=== PATIENT | female | born 1935 | race Caucasian/White ===

== ENCOUNTER 2020-12-04 08:16 | Outpatient (CLI) | payer MEDICARE, SELFPAY ==
[2020-12-04 08:48] LABS: Basophils Absolute Auto 0.1 K/mm3 (0.0-0.1); Basophils Percent Auto 0.1 % (0.2-1.2); Eosinophils Absolute Auto 0.2 K/mm3 (0-0.3); Eosinophils Percent Auto 0.3 % (0-4.4); Hematocrit 40.5 % (37.0-47.0); Hemoglobin 12.6 g/dL (12.0-15.0); Immature Granulocyte Absolute 0.13 K/mm3 (0.00-0.031); Immature Granulocyte Percent A 0.2 % (0-0.5); Lymphocytes Absolute Auto 54.84 K/mm3 (0.9-3.2); Mean Corpuscular HGB Conc 31.1 g/dl (32-36); Mean Corpuscular Hemoglobin 28.5 pg (26-34); Mean Corpuscular Volume 91.6 fl (80-100); Mean Platelet Volume 8.9 fl (7.4-10.4); Monocytes Absolute Auto 1.3 K/mm3 (0.1-0.6); Monocytes Percent Auto 2.1 % (2.6-8.5); Neutrophils Absolute Auto 7.3 K/mm3 (1.3-6.7); Neutrophils Percent Auto 11.3 % (45.5-73.1); Platelet Count Result 232 k/mm3 (150-375); Red Blood Count 4.42 M/mm3 (4.2-5.4); Red Cell Distribution Width 14.8 % (11.5-14.5)
[2020-12-04 09:46] LABS: White Blood Count 63.8 K/mm3 (4.5-10.0)
[2020-12-04 09:51] LABS: Atypical Lymphocytes Present; Platelet Estimate Adequate (Adequate)
[2020-12-04 11:10] LABS: Alanine Aminotransferase 12 U/L (4-35); Albumin Level 4.3 g/dL (3.5-5.1); Alkaline Phosphatase 63 U/L (38-126); Anion Gap 10 mmol/L (8-16); Aspartate Amino Transferase 30 U/L (14-36); Bilirubin,Total 1.2 mg/dL (0.2-1.3); Blood Urea Nitrogen 13 mg/dL (7-17); Calcium 9.8 mg/dL (8.4-10.2); Carbon Dioxide 25 mmol/L (22-30); Chloride 106 mmol/L (98-107); Estimated Glomerular Filt Rate 53; Glucose 122 mg/dL (65-105); Lactate Dehydrogenase 476 U/L (313-618); Potassium 4.5 mmol/L (3.4-5.0); Sodium 141 mmol/L (137-145)
== END 2020-12-04 08:17 | disposition home or self-care (01) ==
PROVIDERS: Visit Provider Internal Medicine Hematology & Oncology
DX: C91.10 Chronic lymphocytic leukemia of B-cell type not having achieved remission (principal)
CPT/HCPCS: 36415; 80053; 83615; 85025

== ENCOUNTER 2021-09-09 09:04 | Outpatient (CLI) | payer MEDICARE, SELFPAY ==
[2021-09-09 09:19] LABS: Basophils Absolute Auto 0.1 K/mm3 (0.0-0.1); Basophils Percent Auto 0.1 % (0.2-1.2); Eosinophils Absolute Auto 0.1 K/mm3 (0-0.3); Eosinophils Percent Auto 0.1 % (0-4.4); Hematocrit 42.5 % (37.0-47.0); Hemoglobin 12.6 g/dL (12.0-15.0); Immature Granulocyte Absolute 0.22 K/mm3 (0.00-0.031); Immature Granulocyte Percent A 0.2 % (0-0.5); Lymphocytes Absolute Auto 86.02 K/mm3 (0.9-3.2); Lymphocytes Percent Auto 91.2 % (18.3-44.2); Mean Corpuscular HGB Conc 29.6 g/dl (32-36); Mean Corpuscular Hemoglobin 29.5 pg (26-34); Mean Corpuscular Volume 99.5 fl (80-100); Monocytes Percent Auto 2.2 % (2.6-8.5); Neutrophils Absolute Auto 5.9 K/mm3 (1.3-6.7); Neutrophils Percent Auto 6.2 % (45.5-73.1); Platelet Count Result 235 k/mm3 (150-375); Red Blood Count 4.27 M/mm3 (4.2-5.4); Red Cell Distribution Width 14.4 % (11.5-14.5)
[2021-09-09 09:22] LABS: White Blood Count 94.3 K/mm3 (4.5-10.0)
[2021-09-09 09:23] LABS: Blood Urea Nitrogen 17 mg/dL (8-26); Carbon Dioxide 26 mmol/L (22-30); Chloride 104 mmol/L (98-109); Estimated Glomerular Filt Rate 53; Glucose 121 mg/dL (70-105); Potassium 4.2 mmol/L (3.5-4.9); Sodium 141 mmol/L (138-146)
[2021-09-09 09:25] LABS: Atypical Lymphocytes Present; Platelet Estimate Adequate (Adequate)
[2021-09-09 10:02] LABS: Alanine Aminotransferase 13 U/L (4-35); Albumin Level 4.6 g/dL (3.5-5.1); Alkaline Phosphatase 69 U/L (38-126); Anion Gap 10 mmol/L (8-16); Aspartate Amino Transferase 29 U/L (14-36); Bilirubin,Total 1.2 mg/dL (0.2-1.3); Blood Urea Nitrogen 16 mg/dL (7-17); Calcium 9.4 mg/dL (8.4-10.2); Carbon Dioxide 25 mmol/L (22-30); Chloride 105 mmol/L (98-107); Estimated Glomerular Filt Rate 47; Glucose 123 mg/dL (65-110); Lactate Dehydrogenase 455 U/L (313-618); Potassium 4.3 mmol/L (3.4-5.0); Sodium 140 mmol/L (137-145)
== END 2021-09-09 09:05 | disposition home or self-care (01) ==
PROVIDERS: Visit Provider Internal Medicine Hematology & Oncology
DX: C91.10 Chronic lymphocytic leukemia of B-cell type not having achieved remission (principal)
CPT/HCPCS: 36415; 80053; 83615; 85025

== ENCOUNTER 2022-03-11 11:15 | Outpatient (CLI) | payer MEDICARE, SELFPAY ==
[2022-03-11 11:36] LABS: Hematocrit 38.4 % (37.0-47.0); Hemoglobin 12.1 g/dL (12.0-15.0); Mean Corpuscular HGB Conc 31.5 g/dl (32-36); Mean Corpuscular Hemoglobin 29.9 pg (26-34); Mean Corpuscular Volume 94.8 fl (80-100); Mean Platelet Volume 8.8 fl (7.4-10.4); Platelet Count Result 227 k/mm3 (150-375); Red Blood Count 4.05 M/mm3 (4.2-5.4); Red Cell Distribution Width 14.1 % (11.5-14.5)
[2022-03-11 11:39] LABS: Blood Urea Nitrogen 17 mg/dL (8-26); Carbon Dioxide 22 mmol/L (22-30); Chloride 104 mmol/L (98-109); Estimated Glomerular Filt Rate 47; Glucose 121 mg/dL (70-105); Ionized Calcium (POC) 1.18 mmol/L (1.11-1.31); Potassium 4.3 mmol/L (3.5-4.9); Sodium 137 mmol/L (138-146)
[2022-03-11 11:41] LABS: White Blood Count 74.4 K/mm3 (4.5-10.0)
[2022-03-11 11:43] LABS: Atypical Lymphocytes Present; Lymphocytes Absolute Manual 70.68 K/mm3 (1.1-4.5); Monocytes Absolute Manual 0.74 K/mm3 (0.1-0.90); Monocytes Percent Manual 1 % (3-9); Neutrophils Percent Manual 4 % (46-73); Platelet Estimate Adequate (Adequate); Smudge Cells FEW; Total Cells Counted 100
[2022-03-11 13:35] LABS: Alanine Aminotransferase 13 U/L (6-35); Albumin Level 4.3 g/dL (3.5-5.1); Alkaline Phosphatase 61 U/L (38-126); Anion Gap 13 mmol/L (8-16); Aspartate Amino Transferase 22 U/L (14-36); Bilirubin,Total 1.3 mg/dL (0.2-1.3); Blood Urea Nitrogen 19 mg/dL (7-17); Calcium 9.3 mg/dL (8.4-10.2); Carbon Dioxide 21 mmol/L (22-30); Chloride 102 mmol/L (98-107); Estimated Glomerular Filt Rate 53; Glucose 123 mg/dL (65-110); Lactate Dehydrogenase 175 U/L (120-246); Potassium 4.3 mmol/L (3.4-5.0); Sodium 136 mmol/L (137-145)
== END 2022-03-11 11:16 | disposition home or self-care (01) ==
LOC: ANHLAB 11:16
PROVIDERS: Visit Provider Internal Medicine Hematology & Oncology
DX: C91.10 Chronic lymphocytic leukemia of B-cell type not having achieved remission (principal)
CPT/HCPCS: 36415; 80047; 80053; 83615; 85025

== ENCOUNTER 2022-06-10 06:28 | Inpatient (IN) | payer MEDICARE, SELFPAY ==
--- NOTE | ~2022-06-10 | CT_ITS ---
EXAMINATION: CT guide absc cath placement DATE: 06/10/2022 14:55 INDICATION: Perisigmoid abscess. TECHNIQUE: The procedure including the risks, benefits, and alternatives was discussed with the patie nt. Risks discussed included bleeding and infection. The patient understood the risks and benefits an d agreed to proceed. The patient was confirmed to be receiving appropriate antibiotic coverage. The skin overlying the abdomen was prepped and draped in usual sterile fashion. Anesthetic was administe red with 1% lidocaine subcutaneously. An 18 gauge trochar needle was inserted into the perisigmoid ab scess with CT guidance. The needle was exchanged over a wire for 5 Maldivian, 7 Maldivian, and 10 Maldivian di lators and then for a 10.2 Maldivian pigtail catheter. The catheter was stitched to the skin, and a ster ile dressing was applied. The mA was adjusted according to patient size. Iterative reconstruction edgar hnique was employed. The dose-length product was 256.92 mGy-cm. There were no immediate complications . FINDINGS: CT images demonstrate the catheter within the perisigmoid abscess. 2 mL fluid was aspirated for testing. IMPRESSION: 1. Successful CT-guided perisigmoid abscess drainage. 2. 2 mL opaque, riojas fluid was sent for aerobic and anaerobic cultures. Reviewed, dictated and finalized at location A. SAMPLER
--- NOTE | ~2022-06-10 | CT_ITS ---
EXAMINATION: CT abdomen pelvis wo con DATE: 06/15/2022 08:37 INDICATION: Diverticular abscess TECHNIQUE: Computed tomography (CT) of the abdomen and pelvis was performed without intravenous contr ast. Automated exposure control and iterative reconstruction technique were employed. The dose-length product was 353.33 mGy-cm. COMPARISON: CT abdomen and pelvis 06/10/2022 FINDINGS: The visualized portions of the lung bases demonstrate chronic peripheral septal thickening. There are small pleural effusions. The heart size is normal. There are coronary artery calcification s. No pericardial effusion. The liver is normal. There are changes of cholecystectomy. The spleen, pa ncreas, adrenal glands, and kidneys are normal. There is no urolithiasis. There are scattered diverti cula in the colon. There is wall thickening of the sigmoid colon with surrounding fat stranding. The appendix is normal. There are no dilated loops of bowel. There is an abscess that abuts the sigmoid c olon and bladder with percutaneous drain in expected position. Fluid encircled by the pigtail loop of the drain measures 1.3 x 1.3 x 0.9 cm. There is trace ascites. There are no pathologically enlarged lymph nodes. There is thoracolumbar levoscoliosis and lumbar dextroscoliosis. There is severe lumbar spondylosis. IMPRESSION: 1. Sigmoid diverticulitis with abscess abutting the sigmoid colon and bladder with trace fluid and pi gtail drain in expected position. 2. Small pleural effusions, worsened from 06/10/2022. Reviewed, dictated and finalized at location A. ISH LECTURER IMPRESSION: 1. Sigmoid diverticulitis with abscess abutting the sigmoid colon and bladder w ith trace fluid and pigtail drain in expected position. 2. Small pleural effusions, worsened from 06/10/2022.
--- NOTE | ~2022-06-10 | CT_ITS ---
CT Abdomen and Pelvis with contrast. History: Left lower quadrant pain. Spiral CT of the abdomen and pelvis was performed after the administration of oral and intravenous co ntrast. 100 cc of Omnipaque 350 was administered intravenously without complication. Dose reduction t echnique was used on this scan by utilizing automated exposure control and iterative reconstruction t echnique. The dose-length product (DLP) was 328.74 mGy-cm. COMPARISON: 12/11/2010 Findings: Scans through the lung bases demonstrate mild atelectatic change. The liver, spleen, pancreas, adrenals and kidneys are within normal limits. Cholecystectomy clips pre sent. No evidence of aortic aneurysm. No lymphadenopathy is seen. There is extensive wall thickening of the sigmoid colon at its mid and distal portions with adjacent pericolonic inflammatory changes. There is an abscess or contained perforation extending inferiorly f rom the sigmoid colon measuring 6.1 x 4.9 x 3.6 and her using; the large air-filled cavity/collection (axial image 147 for example). This abscess/collection extensively abuts the superior margin of the urinary bladder with associated mild wall thickening. No air in the urinary bladder. The collection a lso extensively abuts the vaginal cuff, and fistulization to the vaginal cuff cannot be excluded, wit h small amount of air in the vagina. Patient appears to status post prior hysterectomy. No ascites evident otherwise. Impression: Extensive wall thickening and pericolonic inflammatory change involving the sigmoid colon, compatible diverticulitis. Associated 6.1 x 4.9 x 3.6 cm extraluminal, predominantly gas collection, compatible with abscess and /or contained perforation. This collection extensively abuts the urinary bladder and vaginal cuff, an d fistulization to the vaginal cuff is suspected, with air in the vagina. No evidence for fistulizati on to the urinary bladder. Findings discussed with Dr. Main in the emergency room at 9:10 AM on 06/10/2022. Reviewed, dictated and finalized at location [] IMEDIA TECHNICIAN Impression: Extensive wall thickening and pericolonic inflammatory change involving the sig moid colon, compatible diverticulitis. Associated 6.1 x 4.9 x 3.6 cm extraluminal, predominantly gas collection, saniya tible with abscess and/or contained perforation. This collection extensively ab uts the urinary bladder and vaginal cuff, and fistulization to the vaginal cuff is suspected, with air in the vagina. No evidence for fistulization to the uri nary bladder. Findings discussed with Dr. Main in the emergency room at 9:10 AM on 2021.
--- NOTE | ~2022-06-10 | US_ITS ---
EXAMINATION: US soft tissue head and neck DATE: 06/15/2022 09:04 INDICATION: Right lateral face injury. TECHNIQUE: Multiple grayscale and Doppler ultrasound images of the face were obtained. COMPARISON: None FINDINGS: There is no abnormal mass or well-defined hematoma in the patient's area of concern. IMPRESSION: 1. No abnormal mass or well-defined hematoma in the patient's area of concern. Reviewed, dictated and finalized at location A. TRUCTION IRONWORKER HELPER
[2022-06-10 06:31] VITALS: BP 133/67; PULSE 47; RESP 16; TEMP 36.7; O2SAT 99
--- NOTE | 2022-06-10 07:07 | ECG_ITS ---
Measurements Intervals Todd Rate: 72 P: MN: 0 QRS: 65 QRSD: 86 T: 46 QT: 376 QTc: 413 Interpretive Statements SINUS RHYTHM WITH PREMATURE ATRIAL COMPLEX LOW QRS VOLTAGE IN PRECORDIAL LEADS [QRS DEFLECTION < 1.0 mV IN CHEST LEADS] ABNORMAL RHYTHM ECG NO PREVIOUS ECG AVAILABLE FOR COMPARISON Electronically Signed On 06-10-2022 13:20:40 RECORDING STUDIO SETUP WORKER by Gordon Rivas M.D.
--- NOTE | 2022-06-10 07:24 | ED.GENADULT ---
HPI - General Adult General Chief complaint: Abdominal Pain Stated complaint: diverticulitis Time Seen by Provider: 06/10/22 07:01 History of Present Illness HPI narrative: 86-year-old female presenting to the emergency department for evaluation of left lower quadrant pain that has been ongoing for approximate 24 hours. Patient does report decreased p.o. intake and associated diarrhea. Patient does have a prior history of leukemia and does follow-up with Dr Gibson. Related Data Allergies Allergy/AdvReac Type Severity Reaction Status Date / Time tetracycline Allergy Unknown Verified 04/08/12 13:56 NKFA Allergy Unknown UNKNOWN Uncoded 12/30/18 09:54 Review of Systems Review of Systems: CONSTITUTIONAL: Denies fever, chills, or sweats. EYES: Denies visual changes, redness, or discharge. ENT: Denies rhinorrhea, congestion, sore throat, or otalgia. CARDIOVASCULAR: Denies chest pain, palpitations, or edema. RESPIRATORY: Denies cough or dyspnea. GASTROINTESTINAL: See HPI GENITOURINARY: Denies dysuria or hematuria. SKIN: Denies rash or itching. MUSCULOSKELETAL: Denies back pain, joint pain, or myalgia. NEUROLOGIC: Denies headache, numbness, or weakness. FORMERLY [facility], [facility] Past Medical History Medical History Chronic lymphocytic leukemia History of UTI Surgical History Surgical History H/O cataract extraction History of colonoscopy with polypectomy History of laparoscopic cholecystectomy History of total abdominal hysterectomy Family History Family History Father Family history of lung cancer Patient's father is Mother Patient's mother is Social History Social History (Updated 06/10/22 @ 15:14 by Coty Rajan NP) Social History: She is and lives home alone. She has 3 children. Her son and daughter that live nearby [facility] that [facility] power assistant attorney general for healthcare. She has never smoked. She worked for [employer]. No alcohol marijuana or illicit drugs. Code status full code Smoking status: Never smoker Alcohol intake: never Substance use: never Lack of Transportation: No Lack of Food: Never True Current Housing: I Have Housing Concerned About Future Housing: No Difficulty Paying Gas/Electric Bills: No Difficulty Paying for Meds: No Currently Unemployed: No Education: High School Diploma/GED Difficulty w/ Childcare or Family Care: No Spiritual care concerns: No Exam Narrative: APPEARANCE: Ill-appearing HEAD: normocephalic, atraumatic. EYES: PERRLA/EOMI, conjunctivae clear. NOSE: Normal no drainage EARS:TMS clear with good light reflex. THROAT: Pharynx clear, no exudate. NECK: Supple. No adenopathy, no masses. RESPIRATORY: Airway patent, respirations nonlabored. Clear to auscultation bilaterally, no rales, rhonchi, wheezing. CARDIOVASCULAR: Regular rate and rhythm without murmurs rubs or gallops. ABDOMINAL: Left lower quadrant tenderness to palpation. Normal bowel sounds. MUSCULOSKELETAL: Moves all extremities. Strength/ROM intact, No edema, No calf tenderness. NEURO: Alert. Cranial nerves II through XII intact. Grossly intact SKIN: Warm, dry. Normal Color Course Course Emergency Course: Patient was found to have a diverticulitis with perforation and abscess. Patient has an elevated leukocytosis of 91.5 which is most likely secondary to her leukemia. Patient was started on Zosyn and blood cultures are pending. Patient also shows evidence of a urinary tract infection. Patient was negative for influenza RSV and COVID. Case was discussed with Dr. Bai for surgery and patient was admitted to the hospitalist. Patient and family were updated on the results of the diagnosis. All questions and concerns were addressed. Vital Signs Vital signs: Vital Signs
[2022-06-10] MEDS: ONDANSETRON INJ 4 MG/2 ML VIAL IV PUSH (07:35)
[2022-06-10] MEDS: fentaNYL CITRATE INJ (*CRX) 100 MCG/2 ML VIAL 50 MCG IV PUSH (07:35)
[2022-06-10 08:22] LABS: Appearance Urine Clear (Clear); Bilirubin Urine 2+ (Negative); Blood Urine 3+ (Negative); Glucose Urine UA Negative (Negative); Ketones Urine 3+ mg/dL (Negative); Leukocyte Esterase Ur 2+ LEU/UL (Negative); Nitrate Urine Negative (Negative); Protein Urine 2+ mg/dL (Negative); Specific Grav Ur 1.025 (1.001-1.035)
[2022-06-10 08:28] LABS: Bacteria Urine 3+ /hpf; Mucus Urine Heavy /lpf; RBC Urine 51-75 /hpf (0-2); Squamous Epithelial Cell Urine Occasional /hpf (Few); WBC Clumps Urine Present /HPF; WBC Urine >75 /hpf
[2022-06-10 08:34] LABS: INR 1.4
[2022-06-10 08:35] LABS: Alanine Aminotransferase 19 U/L (6-35); Alkaline Phosphatase 66 U/L (38-126); Anion Gap 11 mmol/L (8-16); Aspartate Amino Transferase 31 U/L (14-36); Bilirubin,Total 1.5 mg/dL (0.2-1.3); Blood Urea Nitrogen 13 mg/dL (7-17); Calcium 8.9 mg/dL (8.4-10.2); Carbon Dioxide 21 mmol/L (22-30); Chloride 103 mmol/L (98-107); Estimated Glomerular Filt Rate > 60; Glucose 144 mg/dL (65-110); Magnesium 2.1 mg/dL (1.6-2.3); Partial Thromboplastin Time 29.9 SECONDS (22.3-36.8); Potassium 3.3 mmol/L (3.4-5.0); Sodium 135 mmol/L (137-145)
[2022-06-10 08:41] LABS: Add Urine Microscopic? YES; Color Urine Dark Orange (Yellow)
[2022-06-10 08:46] LABS: Hematocrit 34.3 % (37.0-47.0); Hemoglobin 10.8 g/dL (12.0-15.0); Mean Corpuscular HGB Conc 31.5 g/dl (32-36); Mean Corpuscular Hemoglobin 29.8 pg (26-34); Mean Corpuscular Volume 94.5 fl (80-100); Mean Platelet Volume 9.6 fl (7.4-10.4); Platelet Count Result 295 k/mm3 (150-375); Red Blood Count 3.63 M/mm3 (4.2-5.4); Red Cell Distribution Width 14.1 % (11.5-14.5)
[2022-06-10 08:51] LABS: White Blood Count 91.5 K/mm3 (4.5-10.0)
[2022-06-10 09:15] LABS: Band Neutrophils Percent 8 % (0-6); Lymphocytes Absolute Manual 68.62 K/mm3 (1.1-4.5); Monocytes Absolute Manual 3.66 K/mm3 (0.1-0.90); Monocytes Percent Manual 4 % (3-9); Neutrophils Absolute Manual 19.21 K/mm3 (1.7-7.2); Neutrophils Percent Manual 13 % (46-73); Platelet Estimate Adequate (Adequate); Smudge Cells MANY; Total Cells Counted 100
[2022-06-10 09:23] LABS: Schistocytes None Seen (NORMAL)
[2022-06-10 10:17] LABS: Influenza A QL RT-PCR Negative (Negative); Influenza B QL RT-PCR Negative (Negative); RSV RNA, RT-PCR Negative (Negative); SARS-CoV-2 RNA PCR Negative
[2022-06-10 10:19] VITALS: BP 130/88; PULSE 56; RESP 14; O2SAT 98
--- NOTE | 2022-06-10 10:38 | PM.CNGS ---
Assessment and Plan Assessment and plan (1) Diverticulitis of intestine with perforation: Code(s): K57.80 - Diverticulitis of intestine, part unspecified, with perforation and abscess without bleeding Status: Acute Assessment and Plan: This is her first episode of diverticulitis. CT reviewed and discussed with the patient in detail, which showed acute sigmoid diverticulitis with localized perforation and mostly gas-filled adjacent collection/abscess. There is also suggestion of possible fistulization to the vagina. No peritoneal signs on exam and her abdominal pain is controlled in the ER. We would recommend to initiate conservative treatment with broad-spectrum IV antibiotics, bowel rest, IV fluids, analgesics as needed. We have also ordered percutaneous drainage of the abscess in IR. (2) Chronic lymphocytic leukemia: Code(s): C91.10 - Chronic lymphocytic leukemia of B-cell type not having achieved remission Status: Acute Assessment and Plan: Diagnosed in [address] Gibson every 6 months. (3) Urinary tract infection: Code(s): N39.0 - Urinary tract infection, site not specified Status: Acute Assessment and Plan: Urinalysis suggests UTI. Patient is asymptomatic. Urine cx pending. Will be continued on IV Zosyn as mentioned above. Management per Hospitalist. (4) Leukocytosis: Code(s): D72.829 - Elevated white blood cell count, unspecified Status: Acute Assessment and Plan: Patient with CLL with leukocytosis. Last labs in Feb showed WBC 74k and up to 91k today. Likely diverticulitis in contributing to increase as mentioned above. Hemodynamically stable and no peritoneal signs on exam. Blood cultures drawn. Continue IV antibiotics and monitor labs. Plan I have discussed the patient's case and plan of care with Dr. Bai. History of Present Illness Consult details Consult date: 06/10/22 Reason for consult: other (Diverticulitis with perforation and abscess, possible vaginal fisutula) Requesting physician: Goran Main MD Narrative: This is an 86-year-old woman with a history of chronic lymphocytic leukemia that was diagnosed in 2002, who presented to the emergency department today with complaints of left lower quadrant abdominal pain. Her abdominal pain started 8 days ago. It was initially mild and intermittent. Her pain continued over the next few days and she developed a poor appetite. She has had low oral intake over the past week due to a poor appetite. Denies any nausea or vomiting. She also reports loose stools and new stool incontinence. Her stools are slightly mucousy, but no blood in the stool. Denies any fever or chills. She called her PCP due to the persistent symptoms and they recommended she go to the ER for further evaluation. CT scan of the abdomen and pelvis showed acute sigmoid diverticulitis with a peridiverticular abscess measuring 6.1 x 4.9 x 3.6 cm predominantly a gas collection, consistent with an abscess or contained perforation. This collection extensively abuts the urinary bladder and vaginal cuff with possible fistulization to the vaginal cuff due to air in the vagina, but no evidence of fistulization to the urinary bladder. In review of her labs, leukocytosis is noted with the most recent [place] [address]. Labs today showed a white blood cell count of 91,500. Labs also show a sodium of 135, potassium 3.3, glucose 144, hemoglobin 10.8, hematocrit 34.3. She also had an EKG in the ER this suggests rate controlled atrial fibrillation with a heart rate of 72. There is noted to be artifact on the EKG making it more difficult to interpret. The patient does report being told in the past that she has atrial fibrillation, but denies ever taking any medication or anticoagulants. The patient is being admitted in the setting of diverticulitis with perforation and abscess. Our service
--- NOTE | 2022-06-10 11:13 | PC.NURSE ---
Patient report received from JACK Harley. All questions answered and care of patient assumed. Patient resting comfortably in stretcher with family at bedside and call light in reach. NAD. VSS. Patient awaiting radiology availability for drain placement. Will continue to address needs as they arise.
[2022-06-10 11:51] VITALS: O2SAT 100
[2022-06-10 11:52] VITALS: BP 119/55; PULSE 71; RESP 14; O2SAT 99
[2022-06-10] MEDS: SODIUM CHLORIDE 0.9% IV 1,000 ML 75 ML IV CONT (12:51)
--- NOTE | 2022-06-10 12:54 | PM.IMHP ---
H&P: HPI History of Present Illness Date/Time: 06/10/22 12:54 Chief Complaint: Abdominal pain Narrative: This is an 86-year-old female patient who had sudden onset of left lower quadrant pain that has been ongoing for the last 24 hours. She has had decreased oral intake and diarrhea as well. Her last colonoscopy was many years ago. She has a history of CLL and her white counts 91.5 today. H&H is 10.8 and 34.3. Lymphocytes 75.0. It neutrophils 13. Absolute lymphs 68.62. Sodium 135 and potassium 3.3. She is also positive for UTI. Negative for influenza A/B RSV and COVID. Abdominal pelvis CT was read as the following Extensive wall thickening and pericolonic inflammatory change involving the sigmoid colon, compatible diverticulitis. Associated 6.1 x 4.9 x 3.6 cm extraluminal, predominantly gas collection, compatible with abscess and/or contained perforation. This collection extensively abuts the urinary bladder and vaginal cuff, and fistulization to the vaginal cuff is suspected, with air in the vagina. No evidence for fistulization to the urinary bladder. The patient was taken for a drain placement S for catheter placement CT it was read as the following1. Successful CT-guided perisigmoid abscess drainage. 2. 2 mL opaque, riojas fluid was sent for aerobic and anaerobic cultures. The patient was given Zofran, fentanyl and Zosyn in the emergency room. Surgery had been consulted and has already seen the patient. The patient is being admitted to inpatient status on the date of service of 06/10/2022 Review of Systems Review of Systems: See HPI All systems reviewed & are unremarkable except as noted in HPI and below Constitutional: Constitutional: Reports as per HPI and Reports no additional constitutional complaints Eyes: Eyes: Reports as per HPI and Reports no additional eye complaints ENT: Reports system reviewed and no additional complaints, except as documented and Reports Normal hearing present Cardiovascular: Cardiovascular: Reports no additional cardiovascular complaints Respiratory: Respiratory: Reports no additional respiratory complaints and Reports no additional respiratory complaints Gastrointestinal: Gastrointestinal: Reports as per HPI and Reports no additional gastrointestinal complaints Musculoskeletal: Musculoskeletal: Reports no additional musculoskeletal complaints Integumentary/Breasts: Skin/Breast: Reports system reviewed and no additional complaints, except as docu and Reports as per HPI Neurologic: Reports system reviewed and no additional complaints, except as documented, Reports as per HPI and Reports Normal hearing present Psychiatric: Psychiatric: Reports no additional psychiatric complaints and Reports as per HPI Endocrine: Endocrine: Reports no additional endocrine complaints Hematologic/Lymphatic: Hematologic/Lymphatic: Reports no additional hematologic/lymphatic complaints Allergic/Immunologic: Allergic/Immunologic: Reports no additional allergic/immunologic complaints PMFSH Past Medical History Medical History Chronic lymphocytic leukemia History of UTI Surgical History Surgical History H/O cataract extraction History of colonoscopy with polypectomy History of laparoscopic cholecystectomy History of total abdominal hysterectomy Family History Family History Father Family history of lung cancer Patient's father is Mother Patient's mother is Social History Social History (Updated 06/10/22 @ 15:14 by Coty Rajan NP) Social History: She is and lives home alone. She has 3 children. Her son and daughter that live nearby [facility] power managing attorney for healthcare. She has never smoked. She worked for [employer]. No alcohol marijuana or illicit drugs.
--- NOTE | 2022-06-10 13:06 | PC.NURSE ---
Hospitalist at bedside to assess pt.
--- NOTE | 2022-06-10 13:52 | PC.NURSE ---
Patient transported to CT via termite technician for procedure. RN on 3 Med/Surg updated.
[2022-06-10 15:19] VITALS: BMI 26.7
--- NOTE | 2022-06-10 15:26 | ADMGEN ---
This patient, Kemi Ford, was admitted to [facility] Surg Room 332-02. Patient/family oriented to hospital policies and general routines including ID bracelet, bed and alarms, visiting hours, pain management, procedures, bathroom and other care routines, personal items, smoking policy, room service/diet, and visiting hours. Information on how to activate the Rapid Response Team has been discussed. Patient/Family are encouraged to report perceived risks to care and to ask questions if they do not understand what they are told or what they should do.
[2022-06-10 15:44] VITALS: BP 127/51; PULSE 71; RESP 16; TEMP 36.8; O2SAT 100
--- NOTE | 2022-06-10 18:19 | PDONCCN ---
HPI - Date of Consult Date/Time: 06/10/22 18:19 Requesting Physician: Yue Cruz MD Primary Care Provider: UNKNOWN,DOCTOR - Consult Narrative Reason for consult: Chronic lymphocytic leukemia Narrative: Kemi Ford is a 86 year old female with history of chronic lymphocytic leukemia diagnosed in 2002 was last seen in the office on March 11, 2022. Labs at that time showed WBC count of 74,000. Patient now came into the hospital with lower abdominal pain for last 7 days duration worsening in last 24 hours. She was having intermittent diarrhea. Labs on admission showed WBC count of 91.5 with hemoglobin of 10.8. CT scan showed extensive wall thickening of the pericolonic inflammatory changes involving the sigmoid colon compatible with diverticulitis associated with 6.1 x 4.9 x 3.6 cm gas collection compatible with abscess and contained perforation. Patient had CT-guided perisigmoid abscess drainage catheter placement performed today. Her pain is slightly better. Denies any fevers and chills. Denies any melena hematochezia. No other new complaints. Review of Systems - Review of Systems All systems reviewed & are unremarkable except as noted in HPI and bel - Neurologic Reports system reviewed and no additional complaints, except as documented, Reports hearing normal, Reports weakness, Denies abnormal gait, Denies headache(s), Denies focal weakness, Denies numbness, Denies tingling PMFSH Medical History: Medical History (Last Reviewed 06/10/22 @ 15:08 by Coty Rajan NP) Chronic lymphocytic leukemia History of UTI Surgical History: Surgical History (Last Reviewed 06/10/22 @ 15:08 by Coty Rajan NP) H/O cataract extraction History of colonoscopy with polypectomy History of laparoscopic cholecystectomy History of total abdominal hysterectomy Family History: Family History (Last Reviewed 06/10/22 @ 15:41 by Heidy Correa RN) Father Family history of lung cancer Patient's father is Mother Patient's mother is - Social History Social History: Social History (Last Updated 06/10/22 @ 15:14 by Coty Rajan NP) Alcohol Use: Alcohol intake: never Substance Use: Substance use: never Others: Spiritual care concerns: No Smoking Status: Smoking status: Never smoker Social Determinants of Health: Has the Lack of Transportation Kept You From Medical Appointments or From Getting Medications?: No Within the Past 12 Months, Were You Worried Whether Your Food Would Run Out Before You Got Money to Buy More?: Never True What is Your Housing Situation Today?: I Have Housing Are You Worried That in the Next 2 Months, You May Not Have Your Own Housing to Live In?: No Do You Have Trouble Paying Your Heating Or Electricity Bill?: No Do You Have Trouble Paying For Medicines?: No Are You Currently Unemployed and Looking for Work?: No Highest Level of Education Completed: High School Diploma/GED Do You Have Trouble With Childcare or the Care of a Family Member?: No Exam - Vital Signs Vital Signs - 24 hr 06/10/22 06:31 06/10/22 10:19 06/10/22 11:51 Temperature 36.7 C Pulse Rate 47 L 56 L Respiratory Rate 16 14 Blood Pressure 133/67 130/88 Pulse Oximetry 99 98 100 Oxygen Delivery Room Air 06/10/22 11:52 06/10/22 15:44 Temperature 36.8 C Pulse Rate 71 71 Respiratory Rate 14 16 Blood Pressure 119/55 L 127/51 L Pulse Oximetry 99 100 Oxygen Delivery - Exam HEENT: EOMI, PERRLA Neck: No: JVD Lungs: clear to auscultation, normal air movement Heart: no murmurs, gallops, or rubs, regular rhythm Abdomen: abdomen soft, non-distended, normal bowel sounds, tender Extremities: normal pulses Integumentary: no abnormalities Neurological: normal speech Psychological: mental status NL, mood NL - Lab Results Laboratory Last Values WBC 91.5 K/mm3 (4.5-10.0) H* 1
[2022-06-10 19:53] LABS: Immunoglobulin A 45 mg/dL (70-400); Immunoglobulin G 735 mg/dL (700-1600); Immunoglobulin M 58 mg/dL (40-230)
[2022-06-10 21:32] VITALS: BP 126/51; PULSE 79; RESP 20; TEMP 36.6; O2SAT 98
[2022-06-11 05:35] VITALS: BP 115/52; PULSE 69; RESP 20; TEMP 36.6; O2SAT 100
[2022-06-11] MEDS: SODIUM CHLORIDE 0.9% IV 1,000 ML 75 ML IV CONT (05:51)
[2022-06-11 07:39] LABS: Hematocrit 29.5 % (37.0-47.0); Hemoglobin 9.1 g/dL (12.0-15.0); Mean Corpuscular HGB Conc 30.8 g/dl (32-36); Mean Corpuscular Hemoglobin 29.8 pg (26-34); Mean Corpuscular Volume 96.7 fl (80-100); Mean Platelet Volume 9.1 fl (7.4-10.4); Platelet Count Result 234 k/mm3 (150-375); Red Blood Count 3.05 M/mm3 (4.2-5.4); Red Cell Distribution Width 14.3 % (11.5-14.5)
[2022-06-11 07:47] LABS: White Blood Count 62.6 K/mm3 (4.5-10.0)
[2022-06-11 07:52] LABS: Lactic Acid Reflex 1.1 mmol/L (0.7-2.0)
[2022-06-11 07:52] LABS: Alanine Aminotransferase 17 U/L (6-35); Albumin Level 3.2 g/dL (3.5-5.1); Alkaline Phosphatase 48 U/L (38-126); Anion Gap 5 mmol/L (8-16); Aspartate Amino Transferase 31 U/L (14-36); Blood Urea Nitrogen 13 mg/dL (7-17); Calcium 8.1 mg/dL (8.4-10.2); Carbon Dioxide 24 mmol/L (22-30); Chloride 105 mmol/L (98-107); Estimated Glomerular Filt Rate > 60; Glucose 93 mg/dL (65-110); Magnesium 2.2 mg/dL (1.6-2.3); Phosphorus 3.7 mg/dL (2.5-4.5); Potassium 3.2 mmol/L (3.4-5.0); Sodium 134 mmol/L (137-145)
[2022-06-11 08:47] LABS: Band Neutrophils Percent 5 % (0-6); Monocytes Absolute Manual 1.25 K/mm3 (0.1-0.90); Monocytes Percent Manual 2 % (3-9); Neutrophils Absolute Manual 13.14 K/mm3 (1.7-7.2); Neutrophils Percent Manual 16 % (46-73); Platelet Estimate Adequate (Adequate); Schistocytes None Seen (NORMAL); Smudge Cells MODERATE; Total Cells Counted 100
[2022-06-11 08:48] LABS: Anisocytosis 1+ (NORMAL); Burr Cells 1+ (NORMAL)
[2022-06-11] MEDS: POTASSIUM CHLORIDE INJ 40 MEQ in SODIUM CHLORIDE 0.9% IV 500 ML 130 MEQ IVPB (08:58)
--- NOTE | 2022-06-11 13:35 | PM.PNGS ---
Progress Note: A&P Assessment and Plan (1) Diverticulitis of intestine with perforation: Code(s): K57.80 - Diverticulitis of intestine, part unspecified, with perforation and abscess without bleeding Status: Acute Assessment and Plan: S/p perc drain yesterday with minimal output overnight, continue to monitor. Abscess cx with gram stain showing mixed bacterial humaira. Continue IV Zosyn. WBC down to 62k today. Will start clear liquids and slowly advance as tolerated to low fiber. Will consult the dietitian for education on low vs high fiber diet. (2) Chronic lymphocytic leukemia: Code(s): C91.10 - Chronic lymphocytic leukemia of B-cell type not having achieved remission Status: Acute Assessment and Plan: Hem/Onc following and evaluating patient for IV IgG treatment (3) Urinary tract infection: Code(s): N39.0 - Urinary tract infection, site not specified Status: Acute Assessment and Plan: U/A suggests UTI, urine cx pending, on IV Zosyn, management per Hospitalist (4) Leukocytosis: Code(s): D72.829 - Elevated white blood cell count, unspecified Status: Acute Plan I have discussed the patient's case and plan of care with Dr. Bai. Subjective Subjective Date/Time Seen: 06/11/22 13:35 Patient reports: flatus, bowel movement (1 today) and afebrile Interval history: Patient much improved today. She is seen with her daughter and granddaughter at the bedside. She denies any abdominal pain. Just reports some pain with movement at the site of the perc drain. No nausea or vomiting. She is thirsty and requesting liquids. Per nursing, perc drain only had 5 cc output overnight. Review of Systems Review of Systems: All systems reviewed & are unremarkable except as noted in HPI and below Exam Const: General: comfortable, no acute distress and awake Orientation/consciousness: patient oriented x3 GI: Inspection: non-distended and other (perc drain with scant brown liquid drainage) GI Palp: Yes Soft to palpation, Yes Tenderness to palpation present (GI) (only at perc drain site, improved), No Guarding due to palpation present (GI) and Yes Rebound tenderness present Auscultation: normal bowel sounds Extrem: General: normal to inspection and no edema Psych: Mental Status: mental status grossly normal Insight: Good insight present (Psych) Objective Data Vital Signs Vital Signs: Vital Signs - 24 hr 06/10/22 15:44 06/10/22 20:00 06/10/22 21:32 Temperature 98.3 F 98 F Pulse Rate 71 79 Respiratory Rate 16 20 Blood Pressure 127/51 L 126/51 L Pulse Oximetry 100 98 Oxygen Delivery Room Air 06/11/22 05:35 06/11/22 09:15 Temperature 97.8 F Pulse Rate 69 Respiratory Rate 20 Blood Pressure 115/52 L Pulse Oximetry 100 Oxygen Delivery Room Air Intake/Output Intake/Output: Intake & Output 06/08/22 06/09/22 06/10/22 06/11/22 23:59 23:59 23:59 23:59 Intake Total 100 1860 Balance 100 1860 Meds/Results Medications: Active Medications Generic Name Dose Route Start Last Admin Trade Name Freq PRN Reason Stop Dose Admin Fentanyl Citrate 50 mcg 06/10/22 11:00 Fentanyl Citrate Inj (*Crx) 100 Mcg/2 Ml Vial IV PUSH Q2H PRN Pain Rated 7-10 Sodium Chloride 1,000 mls @ 75 mls/hr 06/10/22 11:00 06/11/22 05:51 Normal Saline Iv IV CONT 75 mls/hr .[id number] MICHAEL Administration Piperacillin/Tazobactam/Dextrose 3.375 gm in 50 mls @ 100 mls/hr 06/10/22 17:00 06/11/22 11:27 Zosyn 3.375 Gm/D5w 50ml Pm IVPB 100 mls/hr Q6HR MICHAEL Administration Acetaminophen 1,000 mg in 100 mls @ 400 mls/hr 06/11/22 11:33 Ofirmev 1,000 Mg Ivpb IVPB 06/12/22 11:32 Q6H PRN Pain Rated 1-3 Ondansetron HCl 4 mg 06/10/22 11:00 Ondansetron Inj 4 Mg/2 Ml Vial IV PUSH Q4H PRN Nausea Radiology Results: ITS Impressions Abdomen/Pelvis CT 06/10/22 08:56 Impression: Extensive wall thickening
[2022-06-11 14:00] VITALS: BP 118/66; PULSE 62; RESP 20; TEMP 36.4; O2SAT 99
--- NOTE | 2022-06-11 14:44 | PM.IMPN ---
Progress Note: A&P Assessment and Plan (1) Diverticulitis of intestine with perforation: Code(s): K57.80 - Diverticulitis of intestine, part unspecified, with perforation and abscess without bleeding Status: Acute Assessment and Plan: General surgery following, no history diverticulitis per patient. Underwent perc drain placement yesterday with scant output overnight. Afebrile overnight. Tolerating abx. - Cont. zosyn, await culture speciation/sensitivities. - Clear liquids to start per surgery recs. (2) Urinary tract infection: Code(s): N39.0 - Urinary tract infection, site not specified Status: Acute Assessment and Plan: Denies current dysuria, has hx of UTI states normal symptoms include bladder fullness/lower abd. pain. - Cont. zosyn, await cultures. (3) Chronic lymphocytic leukemia: Code(s): C91.10 - Chronic lymphocytic leukemia of B-cell type not having achieved remission Status: Acute Assessment and Plan: History of CLL, has never been symptomatic per patient. Follows with Dr. Gibson. - Appreciate hematology recs - they are considering IV IgG treatment. Defer to their recs. (4) Leukocytosis: Code(s): D72.829 - Elevated white blood cell count, unspecified Status: Acute Assessment and Plan: Improving. Plan Expect at least 48-72 hours of treatment prior to discharge. Time Spent With Patient Time with patient: 25 - 35 minutes Subjective Date/time seen: 06/11/22 14:44 Interval history: Kemi states she feels some improvement in the abdominal pain since procedure. She does note some pain at the actual drain site - but states it is manageable. Review of Systems Review of Systems: All systems reviewed & are unremarkable except as noted in HPI and below Constitutional: Constitutional: Reports no additional constitutional complaints Cardiovascular: Cardiovascular: Reports no additional cardiovascular complaints Respiratory: Respiratory: Reports no additional respiratory complaints Gastrointestinal: Comments: Pain at the drain site. Genitourinary: Comments: Denies dysuria. Exam Narrative: GENERAL APPEARANCE: Appears to be in no acute distress. HEAD: normocephalic atraumatic ENT: Hearing grossly intact, no nasal discharge NECK: Neck supple, trachea midline. CARDIAC: Normal S1/S2. Rhythm is regular. No murmurs, rubs, or gallops. No cyanosis or pallor. Extremities are warm and well perfused. LUNGS: Clear to auscultation without rales, rhonchi, wheezing or diminished breath sounds. Respirations even and unlabored. ABDOMEN: Mildly tender lower abdomen, tender lateral left to perc drain site. MSK: No joint tenderness/swelling, fair strength in all extremities. PERIPHERAL VASCULAR: Peripheral pulses palpable. Normal perfusion, cap refill <2 seconds. No edema. NEURO: Follows commands. No focal deficits. SKIN: Dressing c/d/i at the drain site. No rash/lesions noted. PSYCH: Stable, no paranoia or delusional thinking. Objective Data Vital Signs Vital Signs: Vital Signs - 24 hr 06/10/22 15:44 06/10/22 20:00 06/10/22 21:32 Temperature 98.3 F 98 F Pulse Rate 71 79 Respiratory Rate 16 20 Blood Pressure 127/51 L 126/51 L Pulse Oximetry 100 98 Oxygen Delivery Room Air 06/11/22 05:35 06/11/22 09:15 06/11/22 14:00 Temperature 97.8 F 97.6 F Pulse Rate 69 62 Respiratory Rate 20 20 Blood Pressure 115/52 L 118/66 Pulse Oximetry 100 99 Oxygen Delivery Room Air Intake/Output Intake/Output: Intake & Output 06/08/22 06/09/22 06/10/22 06/11/22 23:59 23:59 23:59 23:59 Intake Total 100 1860 Balance 100 1860 Meds/Results Medications: Active Medications Generic Name Dose Route Start Last Admin Trade Name Freq PRN Reason Stop Dose Admin Fentanyl Citrate 50 mcg 06/10/22 11:00 Fentanyl Citrate Inj (*Crx) 100 Mcg/2 Ml Vial IV PUSH Q2H PRN Pain Rated 7-10 Sodium Chloride 1,000 mls @ 75 mls
[2022-06-11 20:25] VITALS: BP 123/55; PULSE 63; RESP 20; TEMP 36.6; O2SAT 99
[2022-06-12] MEDS: SODIUM CHLORIDE 0.9% IV 1,000 ML 75 ML IV CONT ×2 (02:25→16:16)
[2022-06-12 03:25] VITALS: BP 110/48; PULSE 57; RESP 18; TEMP 36.3; O2SAT 97
[2022-06-12 06:56] LABS: Hematocrit 28.2 % (37.0-47.0); Hemoglobin 8.7 g/dL (12.0-15.0); Mean Corpuscular HGB Conc 30.9 g/dl (32-36); Mean Corpuscular Hemoglobin 29.9 pg (26-34); Mean Corpuscular Volume 96.9 fl (80-100); Mean Platelet Volume 9.2 fl (7.4-10.4); Platelet Count Result 235 k/mm3 (150-375); Red Blood Count 2.91 M/mm3 (4.2-5.4); Red Cell Distribution Width 14.3 % (11.5-14.5)
[2022-06-12 07:12] LABS: Alanine Aminotransferase 16 U/L (6-35); Albumin Level 2.8 g/dL (3.5-5.1); Alkaline Phosphatase 42 U/L (38-126); Anion Gap 4 mmol/L (8-16); Aspartate Amino Transferase 27 U/L (14-36); Bilirubin,Total 0.6 mg/dL (0.2-1.3); Blood Urea Nitrogen 11 mg/dL (7-17); Calcium 7.7 mg/dL (8.4-10.2); Carbon Dioxide 22 mmol/L (22-30); Chloride 107 mmol/L (98-107); Estimated Glomerular Filt Rate 59; Glucose 100 mg/dL (65-110); Potassium 3.6 mmol/L (3.4-5.0); Sodium 133 mmol/L (137-145)
[2022-06-12 07:13] LABS: White Blood Count 54.8 K/mm3 (4.5-10.0)
--- NOTE | 2022-06-12 11:05 | PM.PNGS ---
Progress Note: A&P Assessment and Plan (1) Diverticulitis of intestine with perforation: Code(s): K57.80 - Diverticulitis of intestine, part unspecified, with perforation and abscess without bleeding Status: Acute Assessment and Plan: exam benign, advance to low fiber diet, cont abx, cont drain, ok to dc c po abx and drain if bradford diet, will need repeat CT next wk prior to drain removal Subjective Subjective Date/Time Seen: 06/12/22 11:05 feels good, bradford clears, minimal pain Review of Systems Review of Systems: All systems reviewed & are unremarkable except as noted in HPI and below Exam Const: General: cooperative, comfortable and no acute distress Resp: Auscultation: clear to auscultation bilaterally Cardio: Rate: regular rate Rhythm: regular rhythm GI: Inspection: normal to inspection and non-distended GI Palp: Yes abdominal tenderness, Yes Soft to palpation, Yes Tenderness to palpation present (GI), No Guarding due to palpation present (GI) and No Rigid due to palpation Objective Data Vital Signs Vital Signs: Vital Signs - 24 hr 06/11/22 14:00 06/11/22 20:00 06/11/22 20:25 Temperature 36.4 C 36.6 C Pulse Rate 62 63 Respiratory Rate 20 20 Blood Pressure 118/66 123/55 L Pulse Oximetry 99 99 Oxygen Delivery Room Air 06/12/22 03:25 06/12/22 08:50 Temperature 36.3 C L Pulse Rate 57 L Respiratory Rate 18 Blood Pressure 110/48 L Pulse Oximetry 97 Oxygen Delivery Room Air Intake/Output Intake/Output: Intake & Output 06/09/22 06/10/22 06/11/22 06/12/22 23:59 23:59 23:59 23:59 Intake Total 100 4360 240 Output Total 8 7 Balance 100 4352 233 Meds/Results Medications: Active Medications Generic Name Dose Route Start Last Admin Trade Name Freq PRN Reason Stop Dose Admin Fentanyl Citrate 50 mcg 06/10/22 11:00 Fentanyl Citrate Inj (*Crx) 100 Mcg/2 Ml Vial IV PUSH Q2H PRN Pain Rated 7-10 Sodium Chloride 1,000 mls @ 75 mls/hr 06/10/22 11:00 06/12/22 02:25 Normal Saline Iv IV CONT 75 mls/hr .[id number] MICHAEL Administration Piperacillin/Tazobactam/Dextrose 3.375 gm in 50 mls @ 100 mls/hr 06/10/22 17:00 06/12/22 05:48 Zosyn 3.375 Gm/D5w 50ml Pm IVPB 100 mls/hr Q6HR MICHAEL Administration Acetaminophen 1,000 mg in 100 mls @ 400 mls/hr 06/11/22 11:33 Ofirmev 1,000 Mg Ivpb IVPB 06/12/22 11:32 Q6H PRN Pain Rated 1-3 Ondansetron HCl 4 mg 06/10/22 11:00 Ondansetron Inj 4 Mg/2 Ml Vial IV PUSH Q4H PRN Nausea Radiology Results: ITS Impressions Abdomen/Pelvis CT 06/10/22 08:56 Impression: Extensive wall thickening and pericolonic inflammatory change involving the sigmoid colon, compatible diverticulitis. Associated 6.1 x 4.9 x 3.6 cm extraluminal, predominantly gas collection, compatible with abscess and/or contained perforation. This collection extensively abuts the urinary bladder and vaginal cuff, and fistulization to the vaginal cuff is suspected, with air in the vagina. No evidence for fistulization to the urinary bladder. Findings discussed with Dr. Main in the emergency room at 9:10 AM on 06/10/2022. Catheter Placement CT 06/10/22 14:56 IMPRESSION: 1. Successful CT-guided perisigmoid abscess drainage. 2. 2 mL opaque, riojas fluid was sent for aerobic and anaerobic cultures. Labs Labs: Laboratory Results - last 24 hr 06/12/22 06/12/22 06:22 06:22 WBC 54.8 H* RBC 2.91 L Hgb 8.7 L Hct 28.2 L MCV 96.9 MCH 29.9 MCHC 30.9 L RDW 14.3 Plt Count 235 MPV 9.2 Sodium 133 L Potassium 3.6 Chloride 107 Carbon Dioxide 22 Anion Gap 4 L BUN 11 Creatinine 0.90 Estim Creat Clear Calc Not Reportable Estimated GFR 59 Glucose 100 Calcium 7.7 L Total Bilirubin 0.6 AST 27 ALT 16 Alkaline Phosphatase 42 Total Protein 6.0 L Albumin 2.8 L
[2022-06-12 11:37] VITALS: BMI 26.7
[2022-06-12 14:57] VITALS: BP 131/68; PULSE 72; RESP 17; TEMP 36.2; O2SAT 100
--- NOTE | 2022-06-12 15:31 | PM.IMPN ---
Progress Note: A&P Assessment and Plan (1) Diverticulitis of intestine with perforation: Code(s): K57.80 - Diverticulitis of intestine, part unspecified, with perforation and abscess without bleeding Status: Acute Assessment and Plan: General surgery following, no history diverticulitis per patient. Underwent perc drain placement yesterday with scant output overnight. Afebrile overnight. Tolerating abx. - Cont. zosyn, await culture speciation/sensitivities. - Clear liquids to start per surgery recs. (2) Urinary tract infection: Code(s): N39.0 - Urinary tract infection, site not specified Status: Acute Assessment and Plan: Denies current dysuria, has hx of UTI states normal symptoms include bladder fullness/lower abd. pain. - Cont. zosyn, await cultures. (3) Chronic lymphocytic leukemia: Code(s): C91.10 - Chronic lymphocytic leukemia of B-cell type not having achieved remission Status: Acute Assessment and Plan: History of CLL, has never been symptomatic per patient. Follows with Dr. Gibson. - Appreciate hematology recs - they are considering IV IgG treatment. Defer to their recs. (4) Leukocytosis: Code(s): D72.829 - Elevated white blood cell count, unspecified Status: Acute Assessment and Plan: Improving. Plan Expect at least 48-72 hours of treatment prior to discharge. Subjective Date/time seen: 06/12/22 15:31 Patient was seen during the morning rounds today. Abdominal pain is slightly better. No sob or chest pain, mood stable. Review of Systems Review of Systems: All systems reviewed & are unremarkable except as noted in HPI and below Constitutional: Constitutional: Reports as per HPI and Reports no additional constitutional complaints Eyes: Eyes: Reports as per HPI and Reports no additional eye complaints ENT: Reports system reviewed and no additional complaints, except as documented and Reports Normal hearing present Cardiovascular: Cardiovascular: Reports no additional cardiovascular complaints Respiratory: Respiratory: Reports no additional respiratory complaints and Reports no additional respiratory complaints Gastrointestinal: Gastrointestinal: Reports as per HPI and Reports no additional gastrointestinal complaints Musculoskeletal: Musculoskeletal: Reports no additional musculoskeletal complaints Integumentary/Breasts: Skin/Breast: Reports system reviewed and no additional complaints, except as docu and Reports as per HPI Neurologic: Reports system reviewed and no additional complaints, except as documented, Reports as per HPI and Reports Normal hearing present Psychiatric: Psychiatric: Reports no additional psychiatric complaints and Reports as per HPI Endocrine: Endocrine: Reports no additional endocrine complaints Hematologic/Lymphatic: Hematologic/Lymphatic: Reports no additional hematologic/lymphatic complaints Allergic/Immunologic: Allergic/Immunologic: Reports no additional allergic/immunologic complaints Exam Narrative: GENERAL APPEARANCE: Appears to be in no acute distress. HEAD: normocephalic atraumatic ENT: Hearing grossly intact, no nasal discharge NECK: Neck supple, trachea midline. CARDIAC: Normal S1/S2. Rhythm is regular. No murmurs, rubs, or gallops. No cyanosis or pallor. Extremities are warm and well perfused. LUNGS: Clear to auscultation without rales, rhonchi, wheezing or diminished breath sounds. Respirations even and unlabored. ABDOMEN: Mildly tender lower abdomen, tender lateral left to perc drain site. MSK: No joint tenderness/swelling, fair strength in all extremities. PERIPHERAL VASCULAR: Peripheral pulses palpable. Normal perfusion, cap refill <2 seconds. No edema. NEURO: Follows commands. No focal deficits. SKIN: Dressing c/d/i at the drain site. No rash/lesions noted. PSYCH: Stable, no paranoia or delusional thinking. Const: General: cooperative, healthy appearing, comfortable, no acute distress
[2022-06-12 20:15] VITALS: PULSE 72; RESP 17; O2SAT 100
[2022-06-12 21:55] VITALS: BP 121/46; PULSE 78; RESP 14; TEMP 36.9; O2SAT 98
[2022-06-13] MEDS: SODIUM CHLORIDE 0.9% IV 1,000 ML 75 ML IV CONT (05:25)
[2022-06-13 05:33] VITALS: BP 129/60; PULSE 54; RESP 14; TEMP 36.3; O2SAT 94
--- NOTE | 2022-06-13 10:50 | P.PNIM_ITS ---
Progress Note: A&P Assessment and Plan (1) Diverticulitis of intestine with perforation: Code(s): K57.80 - Diverticulitis of intestine, part unspecified, with perforation and abscess without bleeding Status: Acute Assessment and Plan: General surgery following, no history diverticulitis per patient. Underwent perc drain placement yesterday with scant output overnight. Afebrile overnight. Tolerating abx. - Cont. zosyn, await culture speciation/sensitivities. - Clear liquids to start per surgery recs. (2) Urinary tract infection: Code(s): N39.0 - Urinary tract infection, site not specified Status: Acute Assessment and Plan: Denies current dysuria, has hx of UTI states normal symptoms include bladder fullness/lower abd. pain. - Cont. zosyn, await cultures. (3) Chronic lymphocytic leukemia: Code(s): C91.10 - Chronic lymphocytic leukemia of B-cell type not having achieved remission Status: Acute Assessment and Plan: History of CLL, has never been symptomatic per patient. Follows with Dr. Gibson. - Appreciate hematology recs - they are considering IV IgG treatment. Defer to their recs. (4) Leukocytosis: Code(s): D72.829 - Elevated white blood cell count, unspecified Status: Acute Assessment and Plan: Improving. Plan Expect at least 48-72 hours of treatment prior to discharge. Subjective Date/time seen: 06/13/22 10:50 Patient was seen during the morning rounds today. Patient is feeling much better. Decreased abdominal pain. No nausea or vomiting. No shortness of breath or chest pain. Mood stable. Review of Systems Review of Systems: All systems reviewed & are unremarkable except as noted in HPI and below Constitutional: Constitutional: Reports as per HPI and Reports no additional constitutional complaints Eyes: Eyes: Reports as per HPI and Reports no additional eye complaints ENT: Reports system reviewed and no additional complaints, except as documented and Reports Normal hearing present Cardiovascular: Cardiovascular: Reports no additional cardiovascular complaints Respiratory: Respiratory: Reports no additional respiratory complaints and Reports no additional respiratory complaints Gastrointestinal: Gastrointestinal: Reports as per HPI and Reports no additional gastrointestinal complaints Musculoskeletal: Musculoskeletal: Reports no additional musculoskeletal complaints Integumentary/Breasts: Skin/Breast: Reports system reviewed and no additional complaints, except as docu and Reports as per HPI Neurologic: Reports system reviewed and no additional complaints, except as documented, Reports as per HPI and Reports Normal hearing present Psychiatric: Psychiatric: Reports no additional psychiatric complaints and Reports as per HPI Endocrine: Endocrine: Reports no additional endocrine complaints Hematologic/Lymphatic: Hematologic/Lymphatic: Reports no additional hematologic/lymphatic complaints Allergic/Immunologic: Allergic/Immunologic: Reports no additional allergic/immunologic complaints Exam Narrative: GENERAL APPEARANCE: Appears to be in no acute distress. HEAD: normocephalic atraumatic ENT: Hearing grossly intact, no nasal discharge NECK: Neck supple, trachea midline. CARDIAC: Normal S1/S2. Rhythm is regular. No murmurs, rubs, or gallops. No cya nosis or pallor. Extremities are warm and well perfused. LUNGS: Clear to auscultation without rales, rhonchi, wheezing or d
--- NOTE | 2022-06-13 11:28 | PM.PNGS ---
Progress Note: A&P Assessment and Plan (1) Diverticulitis of intestine with perforation: Code(s): K57.80 - Diverticulitis of intestine, part unspecified, with perforation and abscess without bleeding Status: Acute Assessment and Plan: exam largely benign, bradford low residue diet, cont abx, ok to dc from surgical standpoint c cont abx and drain, will need repeat CT next wk to reevaluate perf and abscess Subjective Subjective Date/Time Seen: 06/13/22 11:28 still c some lower abd pain, but improved Review of Systems Review of Systems: All systems reviewed & are unremarkable except as noted in HPI and below Exam Const: General: cooperative, comfortable and no acute distress Resp: Auscultation: clear to auscultation bilaterally Cardio: Rate: regular rate Rhythm: regular rhythm GI: Inspection: normal to inspection and non-distended GI Palp: Yes abdominal tenderness, Yes Soft to palpation, Yes Tenderness to palpation present (GI), No Guarding due to palpation present (GI) and No Rigid due to palpation Other: drain c minimal brownish output Objective Data Vital Signs Vital Signs: Vital Signs - 24 hr 06/12/22 14:57 06/12/22 20:15 06/12/22 21:55 Temperature 36.2 C L 36.9 C Pulse Rate 72 72 78 Respiratory Rate 17 17 14 Blood Pressure 131/68 121/46 L Pulse Oximetry 100 100 98 Oxygen Delivery Room Air 06/13/22 05:33 06/13/22 08:15 Temperature 36.3 C L Pulse Rate 54 L Respiratory Rate 14 Blood Pressure 129/60 Pulse Oximetry 94 Oxygen Delivery Room Air Intake/Output Intake/Output: Intake & Output 06/10/22 06/11/22 06/12/22 06/13/22 23:59 23:59 23:59 23:59 Intake Total 100 4360 1830 1550 Output Total 8 7 Balance 100 4352 1823 1550 Meds/Results Medications: Active Medications Generic Name Dose Route Start Last Admin Trade Name Freq PRN Reason Stop Dose Admin Enoxaparin Sodium 40 mg 06/14/22 09:00 Enoxaparin 40 Mg/0.4 Ml Syringe SUB-Q DAILY MICHAEL Fentanyl Citrate 50 mcg 06/10/22 11:00 Fentanyl Citrate Inj (*Crx) 100 Mcg/2 Ml Vial IV PUSH Q2H PRN Pain Rated 7-10 Sodium Chloride 1,000 mls @ 0 mls/hr 06/10/22 11:00 06/13/22 05:25 Normal Saline Iv IV CONT 75 mls/hr .[id number] MICHAEL Administration KVO Piperacillin/Tazobactam/Dextrose 3.375 gm in 50 mls @ 100 mls/hr 06/10/22 17:00 06/13/22 05:21 Zosyn 3.375 Gm/D5w 50ml Pm IVPB 100 mls/hr Q6HR MICHAEL Administration Ondansetron HCl 4 mg 06/10/22 11:00 Ondansetron Inj 4 Mg/2 Ml Vial IV PUSH Q4H PRN Nausea Radiology Results: ITS Impressions Abdomen/Pelvis CT 06/10/22 08:56 Impression: Extensive wall thickening and pericolonic inflammatory change involving the sigmoid colon, compatible diverticulitis. Associated 6.1 x 4.9 x 3.6 cm extraluminal, predominantly gas collection, compatible with abscess and/or contained perforation. This collection extensively abuts the urinary bladder and vaginal cuff, and fistulization to the vaginal cuff is suspected, with air in the vagina. No evidence for fistulization to the urinary bladder. Findings discussed with Dr. Main in the emergency room at 9:10 AM on 06/10/2022. Catheter Placement CT 06/10/22 14:56 IMPRESSION: 1. Successful CT-guided perisigmoid abscess drainage. 2. 2 mL opaque, riojas fluid was sent for aerobic and anaerobic cultures.
[2022-06-13] MEDS: fentaNYL CITRATE INJ (*CRX) 100 MCG/2 ML VIAL 50 MCG IV PUSH ×3 (12:23→20:27)
[2022-06-13 17:03] VITALS: BP 123/51; PULSE 74; RESP 16; TEMP 36.6; O2SAT 98
[2022-06-13 21:53] VITALS: BP 124/56; PULSE 91; RESP 14; TEMP 37.7; O2SAT 96
[2022-06-14 05:49] VITALS: BP 137/62; PULSE 73; RESP 14; TEMP 36.2; O2SAT 96
[2022-06-14 06:38] LABS: Hematocrit 26.5 % (37.0-47.0); Hemoglobin 8.2 g/dL (12.0-15.0); Mean Corpuscular HGB Conc 30.9 g/dl (32-36); Mean Corpuscular Hemoglobin 28.9 pg (26-34); Mean Corpuscular Volume 93.3 fl (80-100); Mean Platelet Volume 8.8 fl (7.4-10.4); Platelet Count Result 237 k/mm3 (150-375); Red Blood Count 2.84 M/mm3 (4.2-5.4); Red Cell Distribution Width 14.4 % (11.5-14.5)
[2022-06-14 06:46] LABS: White Blood Count 57.3 K/mm3 (4.5-10.0)
[2022-06-14 06:53] LABS: Alanine Aminotransferase 13 U/L (6-35); Albumin Level 2.7 g/dL (3.5-5.1); Alkaline Phosphatase 40 U/L (38-126); Anion Gap 3 mmol/L (8-16); Aspartate Amino Transferase 21 U/L (14-36); Bilirubin,Total 0.6 mg/dL (0.2-1.3); Blood Urea Nitrogen 4 mg/dL (7-17); Calcium 7.6 mg/dL (8.4-10.2); Carbon Dioxide 24 mmol/L (22-30); Chloride 109 mmol/L (98-107); Estimated Glomerular Filt Rate > 60; Glucose 133 mg/dL (65-110); Potassium 2.5 mmol/L (3.4-5.0); Sodium 136 mmol/L (137-145)
[2022-06-14] MEDS: POTASSIUM CHLORIDE 20 MEQ PACKET (FOR LIQUID) 40 MEQ PO (08:39)
[2022-06-14] MEDS: ENOXAPARIN 40 MG/0.4 ML SYRINGE SUB-Q (08:39)
[2022-06-14 08:40] VITALS: O2SAT 97
[2022-06-14] MEDS: POTASSIUM CHLORIDE INJ 40 MEQ in SODIUM CHLORIDE 0.9% IV 500 ML 130 MEQ IVPB (11:04)
--- NOTE | 2022-06-14 11:17 | PC.NURSE ---
Potassium IVP started late due to medication received from pharmacy late after calling times three.
--- NOTE | 2022-06-14 12:16 | PM.IMPN ---
Progress Note: A&P Assessment and Plan (1) Diverticulitis of intestine with perforation: Code(s): K57.80 - Diverticulitis of intestine, part unspecified, with perforation and abscess without bleeding Status: Acute Assessment and Plan: General surgery following, no history diverticulitis per patient. Underwent perc drain placement yesterday with scant output overnight. Afebrile overnight. Tolerating abx. - Cont. zosyn, await culture speciation/sensitivities. - Clear liquids to start per surgery recs. (2) Urinary tract infection: Code(s): N39.0 - Urinary tract infection, site not specified Status: Acute Assessment and Plan: Denies current dysuria, has hx of UTI states normal symptoms include bladder fullness/lower abd. pain. - Cont. zosyn, await cultures. (3) Chronic lymphocytic leukemia: Code(s): C91.10 - Chronic lymphocytic leukemia of B-cell type not having achieved remission Status: Acute Assessment and Plan: History of CLL, has never been symptomatic per patient. Follows with Dr. Gibson. - Appreciate hematology recs - they are considering IV IgG treatment. Defer to their recs. (4) Leukocytosis: Code(s): D72.829 - Elevated white blood cell count, unspecified Status: Acute Assessment and Plan: Improving. Plan Expect at least 48-72 hours of treatment prior to discharge. Subjective Date/time seen: 06/14/22 12:16 Patient was seen during the morning rounds today. Patient is feeling much better. Decreased abdominal pain. No nausea or vomiting. Tolerating p.o. diet. No shortness of breath or chest pain. Mood stable. Review of Systems Review of Systems: All systems reviewed & are unremarkable except as noted in HPI and below Constitutional: Constitutional: Reports as per HPI and Reports no additional constitutional complaints Eyes: Eyes: Reports as per HPI and Reports no additional eye complaints ENT: Reports system reviewed and no additional complaints, except as documented and Reports Normal hearing present Cardiovascular: Cardiovascular: Reports no additional cardiovascular complaints Respiratory: Respiratory: Reports no additional respiratory complaints and Reports no additional respiratory complaints Gastrointestinal: Gastrointestinal: Reports as per HPI and Reports no additional gastrointestinal complaints Musculoskeletal: Musculoskeletal: Reports no additional musculoskeletal complaints Integumentary/Breasts: Skin/Breast: Reports system reviewed and no additional complaints, except as docu and Reports as per HPI Neurologic: Reports system reviewed and no additional complaints, except as documented, Reports as per HPI and Reports Normal hearing present Psychiatric: Psychiatric: Reports no additional psychiatric complaints and Reports as per HPI Endocrine: Endocrine: Reports no additional endocrine complaints Hematologic/Lymphatic: Hematologic/Lymphatic: Reports no additional hematologic/lymphatic complaints Allergic/Immunologic: Allergic/Immunologic: Reports no additional allergic/immunologic complaints Exam Narrative: GENERAL APPEARANCE: Appears to be in no acute distress. HEAD: normocephalic atraumatic ENT: Hearing grossly intact, no nasal discharge NECK: Neck supple, trachea midline. CARDIAC: Normal S1/S2. Rhythm is regular. No murmurs, rubs, or gallops. No cyanosis or pallor. Extremities are warm and well perfused. LUNGS: Clear to auscultation without rales, rhonchi, wheezing or diminished breath sounds. Respirations even and unlabored. ABDOMEN: Mildly tender lower abdomen, tender lateral left to perc drain site. MSK: No joint tenderness/swelling, fair strength in all extremities. PERIPHERAL VASCULAR: Peripheral pulses palpable. Normal perfusion, cap refill <2 seconds. No edema. NEURO: Follows commands. No focal deficits. SKIN: Dressing c/d/i at the drain site. No rash/lesions noted. PSYCH: Stable, no paranoia or delusional thi
--- NOTE | 2022-06-14 12:40 | PM.PNGS ---
Progress Note: A&P Assessment and Plan (1) Diverticulitis of intestine with perforation: Code(s): K57.80 - Diverticulitis of intestine, part unspecified, with perforation and abscess without bleeding Status: Acute Assessment and Plan: exam benign, bradford diet, will recheck CT prior to drain removal, cont abx, home soon Subjective Subjective Date/Time Seen: 06/14/22 12:40 feels good, reports pain is largely resolved Review of Systems Review of Systems: All systems reviewed & are unremarkable except as noted in HPI and below Exam Const: General: cooperative, comfortable and no acute distress Resp: Auscultation: clear to auscultation bilaterally Cardio: Rate: regular rate Rhythm: regular rhythm GI: Inspection: normal to inspection and non-distended GI Palp: No abdominal tenderness, Yes Soft to palpation, No Tenderness to palpation present (GI), No Guarding due to palpation present (GI) and No Rigid due to palpation Other: drain c minimal output Objective Data Vital Signs Vital Signs: Vital Signs - 24 hr 06/13/22 17:03 06/13/22 21:53 06/13/22 20:27 Temperature 36.6 C 37.7 C H Pulse Rate 74 91 Respiratory Rate 16 14 Blood Pressure 123/51 L 124/56 L Pulse Oximetry 98 96 Oxygen Delivery Room Air 06/14/22 05:49 Temperature 36.2 C L Pulse Rate 73 Respiratory Rate 14 Blood Pressure 137/62 Pulse Oximetry 96 Oxygen Delivery Intake/Output Intake/Output: Intake & Output 06/11/22 06/12/22 06/13/22 06/14/22 23:59 23:59 23:59 23:59 Intake Total 4360 1830 3470 790 Output Total 8 7 60 550 Balance 4352 1823 3410 240 Meds/Results Medications: Active Medications Generic Name Dose Route Start Last Admin Trade Name Freq PRN Reason Stop Dose Admin Enoxaparin Sodium 40 mg 06/14/22 09:00 06/14/22 08:39 Enoxaparin 40 Mg/0.4 Ml Syringe SUB-Q 40 mg DAILY MICHAEL Administration Fentanyl Citrate 50 mcg 06/10/22 11:00 06/13/22 20:27 Fentanyl Citrate Inj (*Crx) 100 Mcg/2 Ml Vial IV PUSH 50 mcg Q2H PRN Administration Pain Rated 7-10 Sodium Chloride 1,000 mls @ 0 mls/hr 06/10/22 11:00 06/13/22 18:45 Normal Saline Iv IV CONT Infused .[id number] MICHAEL Infusion KVO Piperacillin/Tazobactam/Dextrose 3.375 gm in 50 mls @ 100 mls/hr 06/10/22 17:00 06/14/22 12:21 Zosyn 3.375 Gm/D5w 50ml Pm IVPB 100 mls/hr Q6HR MICHAEL Infusion Magnesium Oxide 400 mg 06/15/22 09:00 Magnesium Oxide 400 Mg Tablet PO DAILY MICHAEL Ondansetron HCl 4 mg 06/10/22 11:00 Ondansetron Inj 4 Mg/2 Ml Vial IV PUSH Q4H PRN Nausea Radiology Results: ITS Impressions Abdomen/Pelvis CT 06/10/22 08:56 Impression: Extensive wall thickening and pericolonic inflammatory change involving the sigmoid colon, compatible diverticulitis. Associated 6.1 x 4.9 x 3.6 cm extraluminal, predominantly gas collection, compatible with abscess and/or contained perforation. This collection extensively abuts the urinary bladder and vaginal cuff, and fistulization to the vaginal cuff is suspected, with air in the vagina. No evidence for fistulization to the urinary bladder. Findings discussed with Dr. Main in the emergency room at 9:10 AM on 06/10/2022. Catheter Placement CT 06/10/22 14:56 IMPRESSION: 1. Successful CT-guided perisigmoid abscess drainage. 2. 2 mL opaque, riojas fluid was sent for aerobic and anaerobic cultures. Labs Labs: Laboratory Results - last 24 hr 06/14/22 06/14/22 06:21 06:21 WBC 57.3 H* RBC 2.84 L Hgb 8.2 L Hct 26.5 L MCV 93.3 MCH 28.9 MCHC 30.9 L RDW 14.4 Plt Count 237 MPV 8.8 Sodium 136 L Potassium 2.5 L* Chloride 109 H Carbon Dioxide 24 Anion Gap 3 L BUN 4 L D Creatinine 0.80 Estim Creat Clear Calc Not Reportable Estimated GFR > 60 Glucose 133 H Calcium 7.6 L Total Bilirubin 0.6 AST 21 ALT 13 Alkaline Phosphatase 40 Total Protein 5.0 L Albumin 2
[2022-06-14 14:41] VITALS: BP 141/73; PULSE 87; RESP 14; TEMP 37.1; O2SAT 100
[2022-06-14] MEDS: MAGNESIUM OXIDE 400 MG TABLET PO (16:23)
--- NOTE | 2022-06-14 17:13 | PC.NURSE ---
Pt was moving to get out of bed and drain was accidently open draining unmeasured amount onto floor.
[2022-06-14 19:50] VITALS: PULSE 87; RESP 14; O2SAT 100
[2022-06-14 22:00] VITALS: BP 137/59; PULSE 86; RESP 16; TEMP 37; O2SAT 98
[2022-06-15 06:00] VITALS: BP 148/71; PULSE 87; RESP 18; TEMP 37.4; O2SAT 99
[2022-06-15] MEDS: SODIUM CHLORIDE 0.9% IV 1,000 ML 30 ML IV CONT (06:25)
[2022-06-15 06:50] LABS: Hematocrit 30.5 % (37.0-47.0); Hemoglobin 9.4 g/dL (12.0-15.0); Mean Corpuscular HGB Conc 30.8 g/dl (32-36); Mean Corpuscular Hemoglobin 29.6 pg (26-34); Mean Corpuscular Volume 95.9 fl (80-100); Platelet Count Result 312 k/mm3 (150-375); Red Blood Count 3.18 M/mm3 (4.2-5.4); Red Cell Distribution Width 14.6 % (11.5-14.5)
[2022-06-15 06:59] LABS: Alanine Aminotransferase 17 U/L (6-35); Albumin Level 3.3 g/dL (3.5-5.1); Alkaline Phosphatase 44 U/L (38-126); Anion Gap 6 mmol/L (8-16); Aspartate Amino Transferase 29 U/L (14-36); Bilirubin,Total 0.7 mg/dL (0.2-1.3); Blood Urea Nitrogen 5 mg/dL (7-17); Calcium 8.1 mg/dL (8.4-10.2); Carbon Dioxide 23 mmol/L (22-30); Chloride 106 mmol/L (98-107); Estimated Glomerular Filt Rate > 60; Glucose 127 mg/dL (65-110); Potassium 3.7 mmol/L (3.4-5.0); Sodium 135 mmol/L (137-145)
[2022-06-15] MEDS: fentaNYL CITRATE INJ (*CRX) 100 MCG/2 ML VIAL 50 MCG IV PUSH (08:13)
[2022-06-15 10:19] LABS: White Blood Count 77.6 K/mm3 (4.5-10.0)
--- NOTE | 2022-06-15 10:27 | PM.PNGS ---
Progress Note: A&P Assessment and Plan (1) Diverticulitis of intestine with perforation: Code(s): K57.80 - Diverticulitis of intestine, part unspecified, with perforation and abscess without bleeding Status: Acute Assessment and Plan: Continues to clinically improve. Still having small amount of drainage from the perc drain yesterday and today. Repeat CT today showed improvement with now a small 1 x 1 x 1 cm fluid collection around the perc drain. Discussed CT findings and plan with Dr. Bai. Will likely keep the perc drain in place even after discharge for at least another week and can repeat another CT as an outpatient. Continue IV antibiotics. Will switch to oral analgesics. Tolerating a low fiber diet. Hopefully discharge soon if continues to improve. Plan I have discussed the patient's case and plan of care with Dr. Bai. Subjective Subjective Date/Time Seen: 06/15/22 09:38 Patient reports: voiding w/o difficulty, bowel movement and afebrile Interval history: Chart reviewed since last seen. Patient still having some suprapubic RLQ abdominal pain at times when voiding and moving her bowels. This is intermittent. She did have Fentanyl for this earlier this morning as there was no oral pain medication options. She denies any abdominal pain at this time. She does report frequent urination and frequent stools, but formed soft stools. Denies diarrhea or blood in stool. Tolerating low fiber diet, although poor appetite. She is eating some of her meals and supplementing with Ensure. Tolerating activity well. She did hit the right side of her head on the railing of the bed last night when trying to lay down in bed and has some swelling and bruising lateral to her right eye. No documented output from perc drain since 06/13 but yesterday patient's drain accidentally was unhooked and her drainage spilled all over her daughter's leg and her bed. She reports a fair amount of drainage and has bout 30 cc in the drain on my exam today. Review of Systems Review of Systems: All systems reviewed & are unremarkable except as noted in HPI and below Exam Const: General: comfortable and no acute distress Orientation/consciousness: patient oriented x3 GI: Inspection: non-distended and other (perc drain with brown liquid drainage, feculent-appearing) GI Palp: Yes Soft to palpation, Yes Tenderness to palpation present (GI) (only minimal TTP at perc drain site), No Guarding due to palpation present (GI) and No Rebound tenderness present Auscultation: normal bowel sounds Neuro: General: moves all extremities Extrem: General: normal to inspection and edema bilateral (mild bilateral lower leg edema) Psych: Mental Status: mental status grossly normal Insight: Good insight present (Psych) Objective Data Vital Signs Vital Signs: Vital Signs - 24 hr 06/14/22 14:41 06/14/22 19:50 06/14/22 22:00 Temperature 98.8 F 98.6 F Pulse Rate 87 87 86 Respiratory Rate 14 14 16 Blood Pressure 141/73 H 137/59 L Pulse Oximetry 100 100 98 Oxygen Delivery Room Air 06/15/22 06:00 Temperature 99.3 F Pulse Rate 87 Respiratory Rate 18 Blood Pressure 148/71 H Pulse Oximetry 99 Oxygen Delivery Intake/Output Intake/Output: Intake & Output 06/12/22 06/13/22 06/14/22 06/15/22 23:59 23:59 23:59 23:59 Intake Total 1830 3470 1890 590 Output Total 7 60 550 1300 Balance 1823 3410 1340 -710 Meds/Results Medications: Active Medications Generic Name Dose Route Start Last Admin Trade Name Freq PRN Reason Stop Dose Admin Enoxaparin Sodium 40 mg 06/14/22 09:00 06/14/22 08:39 Enoxaparin 40 Mg/0.4 Ml Syringe SUB-Q 40 mg DAILY MICHAEL Administration Fentanyl Citrate 50 mcg 06/10/22 11:00 06/15/22 08:13 Fentanyl Citrate Inj (*Crx) 100 Mcg/2 Ml Vial IV PUSH 50 mcg Q2H PRN Administration Pain Rated 7-10 Sodium Chloride 1,000 mls @ 0 mls/hr 06/10/22 11:00 06/15/22 06:25 Normal Saline Iv IV CONT
[2022-06-15 10:29] LABS: Band Neutrophils Percent 2 % (0-6); Metamyelocytes Percent 1 %; Monocytes Absolute Manual 1.55 K/mm3 (0.1-0.90); Monocytes Percent Manual 2 % (3-9); Neutrophils Absolute Manual 13.96 K/mm3 (1.7-7.2); Neutrophils Percent Manual 16 % (46-73); Platelet Estimate Adequate (Adequate); Smudge Cells PRESENT; Total Cells Counted 100
[2022-06-15 10:30] LABS: Schistocytes None Seen (NORMAL)
[2022-06-15] MEDS: MAGNESIUM OXIDE 400 MG TABLET PO (11:21)
[2022-06-15] MEDS: ENOXAPARIN 40 MG/0.4 ML SYRINGE SUB-Q (11:22)
[2022-06-15 14:00] VITALS: BP 130/69; PULSE 86; RESP 14; TEMP 37.7; O2SAT 98
--- NOTE | 2022-06-15 15:51 | PM.IMPN ---
Progress Note: A&P Assessment and Plan (1) Diverticulitis of intestine with perforation: Code(s): K57.80 - Diverticulitis of intestine, part unspecified, with perforation and abscess without bleeding Status: Acute Assessment and Plan: General surgery following, no history diverticulitis per patient. Underwent perc drain placement yesterday with scant output overnight. Afebrile overnight. Tolerating abx. Abscess culture growing bacteroides and pansensitive E coli. - Cont. zosyn, - repeat Ct showed marked improvement in abscess size -continue drain, advance diet per surgery, No on PO abx -possible tomorrow if tolerating diet with outpatient f/u with surgery (2) Urinary tract infection: Code(s): N39.0 - Urinary tract infection, site not specified Status: Acute Assessment and Plan: Denies current dysuria, has hx of UTI states normal symptoms include bladder fullness/lower abd. pain. urine culture growing pansentitive E coli - Cont. zosyn (3) Chronic lymphocytic leukemia: Code(s): C91.10 - Chronic lymphocytic leukemia of B-cell type not having achieved remission Status: Acute Assessment and Plan: History of CLL, has never been symptomatic per patient. Follows with Dr. Gibson. - Appreciate hematology recs - they are considering IV IgG treatment. Defer to their recs. (4) Leukocytosis: Code(s): D72.829 - Elevated white blood cell count, unspecified Status: Acute Assessment and Plan: Improving. Plan Expect at least 48-72 hours of treatment prior to discharge. Subjective Date/time seen: 06/15/22 15:51 Interval history: Noted abd pain has markedly improved. No vomiting and no diarrhea. Toleratign diet so far Review of Systems Review of Systems: All systems reviewed & are unremarkable except as noted in HPI and below Constitutional: Constitutional: Reports as per HPI and Reports no additional constitutional complaints Eyes: Eyes: Reports as per HPI and Reports no additional eye complaints ENT: Reports system reviewed and no additional complaints, except as documented and Reports Normal hearing present Cardiovascular: Cardiovascular: Reports no additional cardiovascular complaints Respiratory: Respiratory: Reports no additional respiratory complaints and Reports no additional respiratory complaints Gastrointestinal: Gastrointestinal: Reports as per HPI and Reports no additional gastrointestinal complaints Comments: stated the perc drain still draining a good amount Musculoskeletal: Musculoskeletal: Reports no additional musculoskeletal complaints Integumentary/Breasts: Skin/Breast: Reports system reviewed and no additional complaints, except as docu and Reports as per HPI Neurologic: Reports system reviewed and no additional complaints, except as documented, Reports as per HPI and Reports Normal hearing present Psychiatric: Psychiatric: Reports no additional psychiatric complaints and Reports as per HPI Endocrine: Endocrine: Reports no additional endocrine complaints Hematologic/Lymphatic: Hematologic/Lymphatic: Reports no additional hematologic/lymphatic complaints Allergic/Immunologic: Allergic/Immunologic: Reports no additional allergic/immunologic complaints Exam Narrative: GENERAL APPEARANCE: Appears to be in no acute distress. HEAD: normocephalic atraumatic ENT: Hearing grossly intact, no nasal discharge NECK: Neck supple, trachea midline. CARDIAC: Normal S1/S2. Rhythm is regular. No murmurs, rubs, or gallops. No cyanosis or pallor. Extremities are warm and well perfused. LUNGS: Clear to auscultation without rales, rhonchi, wheezing or diminished breath sounds. Respirations even and unlabored. ABDOMEN: Mildly tender lower abdomen, tender lateral left to perc drain site. MSK: No joint tenderness/swelling, fair strength in all extremities. PERIPHERAL VASCULAR: Peripheral pulses palpable. Normal perfusion, cap refill <2 seconds. No destiny
[2022-06-15 20:00] VITALS: PULSE 72; RESP 20; O2SAT 98
[2022-06-15 21:56] VITALS: BP 129/82; PULSE 72; RESP 20; TEMP 36.6; O2SAT 98
[2022-06-16 06:00] VITALS: BP 136/89; PULSE 78; RESP 20; TEMP 36.9; O2SAT 98
[2022-06-16] MEDS: ENOXAPARIN 40 MG/0.4 ML SYRINGE SUB-Q (08:29)
[2022-06-16] MEDS: MAGNESIUM OXIDE 400 MG TABLET PO (08:30)
--- NOTE | 2022-06-16 11:24 | PCNFU ---
Nutrition Follow-Up Complete: Inadequate energy intake related to altered GI function and diet order as evidenced by clear liquid status and diverticulitis Goal:PO intake 75% and tolerance to diet advancement. Pt is progressing towards goal. Continue with current goal. Pt current nutrition is low fiber, Ensure BID Nutrition recommendation: continue with current plan of care. Bowel Motility: +BM 06/15 Labs Reviewed: Hgb:9.4, HCT:30.5, Alb:3.3, NA:135, BUN:5, CR:0.6 Meds Noted:zofran Skin: WNL Additional Notes: Pt on a low fiber diet, intake 25-50%, pt reports tolerating well. Drinking Ensure clear still and likes it ok to continue. Ensure compact is ordered, pt to decide what she prefers. Encourage good intake. Monitor diet order, intake, tolerance, wt, labs. Follow up in 7 days.
[2022-06-16] MEDS: ACETAMINOPHEN 325 MG TABLET 650 MG PO (12:22)
[2022-06-16 14:00] VITALS: BP 140/59; PULSE 94; RESP 18; TEMP 36.6; O2SAT 98
--- NOTE | 2022-06-16 15:28 | PM.PNGS ---
Progress Note: A&P Assessment and Plan (1) Diverticulitis of intestine with perforation: Code(s): K57.80 - Diverticulitis of intestine, part unspecified, with perforation and abscess without bleeding Status: Acute Assessment and Plan: doing well, cont drain/abx, ok to dc from surgical standpoint c repeat imaging next wk Subjective Subjective Date/Time Seen: 06/16/22 15:28 feels good, bradford low fiber diet, wants to go home Review of Systems Review of Systems: All systems reviewed & are unremarkable except as noted in HPI and below Exam Const: General: cooperative, comfortable and no acute distress Resp: Auscultation: clear to auscultation bilaterally Cardio: Rate: regular rate Rhythm: regular rhythm GI: Inspection: normal to inspection and non-distended GI Palp: No abdominal tenderness, Yes Soft to palpation, No Tenderness to palpation present (GI), No Guarding due to palpation present (GI) and No Rigid due to palpation Other: ANGELA c serous discharge Objective Data Vital Signs Vital Signs: Vital Signs - 24 hr 06/15/22 21:56 06/15/22 20:00 06/16/22 06:00 Temperature 36.6 C 36.9 C Pulse Rate 72 72 78 Respiratory Rate 20 20 20 Blood Pressure 129/82 136/89 Pulse Oximetry 98 98 98 Oxygen Delivery Room Air 06/16/22 08:30 Temperature Pulse Rate Respiratory Rate Blood Pressure Pulse Oximetry Oxygen Delivery Room Air Intake/Output Intake/Output: Intake & Output 06/13/22 06/14/22 06/15/22 06/16/22 23:59 23:59 23:59 23:59 Intake Total 3470 1890 1530 340 Output Total 60 550 2130 5 Balance 3410 1340 -600 335 Meds/Results Medications: Active Medications Generic Name Dose Route Start Last Admin Trade Name Freq PRN Reason Stop Dose Admin Acetaminophen 650 mg 06/15/22 10:30 06/16/22 12:22 Acetaminophen 325 Mg Tablet PO 650 mg Q4H PRN Administration Headache Hydrocodone Bitart/Acetaminophen 1 tab 06/15/22 10:30 Hydrocodone/Acetaminophen (*Crx) 5-325 Mg Tablet PO Q6H PRN Pain Rated 4-6 Enoxaparin Sodium 40 mg 06/14/22 09:00 06/16/22 08:29 Enoxaparin 40 Mg/0.4 Ml Syringe SUB-Q 40 mg DAILY MICHAEL Administration Fentanyl Citrate 50 mcg 06/10/22 11:00 06/15/22 08:13 Fentanyl Citrate Inj (*Crx) 100 Mcg/2 Ml Vial IV PUSH 50 mcg Q2H PRN Administration Pain Rated 7-10 Sodium Chloride 1,000 mls @ 0 mls/hr 06/10/22 11:00 06/15/22 06:25 Normal Saline Iv IV CONT 30 mls/hr .[id number] MICHAEL Administration KVO Piperacillin/Tazobactam/Dextrose 3.375 gm in 50 mls @ 100 mls/hr 06/10/22 17:00 06/16/22 12:20 Zosyn 3.375 Gm/D5w 50ml Pm IVPB 100 mls/hr Q6HR MICHAEL Administration Magnesium Oxide 400 mg 06/14/22 09:00 06/16/22 08:30 Magnesium Oxide 400 Mg Tablet PO 400 mg DAILY MICHAEL Administration Ondansetron HCl 4 mg 06/10/22 11:00 Ondansetron Inj 4 Mg/2 Ml Vial IV PUSH Q4H PRN Nausea Radiology Results: ITS Impressions Catheter Placement CT 06/10/22 14:56 IMPRESSION: 1. Successful CT-guided perisigmoid abscess drainage. 2. 2 mL opaque, riojas fluid was sent for aerobic and anaerobic cultures. Abdomen/Pelvis CT 06/15/22 08:38 IMPRESSION: 1. Sigmoid diverticulitis with abscess abutting the sigmoid colon and bladder with trace fluid and pigtail drain in expected position. 2. Small pleural effusions, worsened from 06/10/2022. Head/Neck Ultrasound 06/15/22 09:06 IMPRESSION: 1. No abnormal mass or well-defined hematoma in the patient's area of concern.
--- NOTE | 2022-06-16 16:54 | PM.DS ---
DS: Admitting Diagnosis Discharge Date 06/16/22 Admitting Diagnosis Diverticulitis with abscess DS: Discharge Diagnosis Discharge Diagnosis (1) Diverticulitis of intestine with perforation: Code(s): K57.80 - Diverticulitis of intestine, part unspecified, with perforation and abscess without bleeding Status: Acute DS: Summary Hospital Course Reason for hospitalization: Diverticulitis with abscess Hospital Course: (1) Diverticulitis of intestine with perforation: ?Code(s): K57.80 - Diverticulitis of intestine, part unspecified, with perforation and abscess without bleeding ?Status:?Acute ?Assessment and Plan: Underwent perc drain placement. Tolerating diet and symptoms markedly improved Abscess culture growing bacteroides and pansensitive E coli. - Cont. zosyn, Discharged on 7 days course of Levaquin and Flagyl - repeat Ct on 06/23/22 per surgery F/u with surgery as instructed (2) Urinary tract infection: ?Code(s): N39.0 - Urinary tract infection, site not specified ?Status:?Acute ?Assessment and Plan: Denies current dysuria, has hx of UTI states normal symptoms include bladder fullness/lower abd. pain.? urine culture growing pansentitive E coli Received 3 days of abx (3) Chronic lymphocytic leukemia: ?Code(s): C91.10 - Chronic lymphocytic leukemia of B-cell type not having achieved remission ?Status:?Acute ?Assessment and Plan: History of CLL, has never been symptomatic per patient.? Follows with Dr. Gibson. - Appreciate hematology recs - they are considering IV IgG treatment F/u with Oncology outpatient (4) Leukocytosis: ?Code(s): D72.829 - Elevated white blood cell count, unspecified ?Status:?Acute ?Assessment and Plan: Improving. F/u with oncology outpatient Time Spent with Patient Time attestation: Total time spent providing and/or coordinating discharge services: Exam Const: General: comfortable HENMT: Ears: TM's normal bilaterally Face/Nose/Sinus: Normal nares present Eyes: General: appearance normal, both eyes and all related structures Neck: Other: No palpable masses Resp: Effort & Inspection: normal respiratory effort Auscultation: clear to auscultation bilaterally Cardio: Rate: regular rate Rhythm: regular rhythm GI: GI Palp: Yes Soft to palpation, Yes Firmness to palpation present (GI), No Tenderness to palpation present (GI), No Guarding due to palpation present (GI) and No Hernia present Auscultation: normal bowel sounds Other: percutaneous drain in place draining brownish effluent Skin: General skin exam: no rashes or lesions noted Neuro: Motor exam (neuro): 5/5 motor strength present throughout Sensory Exam: normal sensation Extrem: General: normal to inspection Psych: Mental Status: mental status grossly normal Discharge Plan Discharge Attending physician on discharge: Hamlet Navarrete Consulting providers: Aury Bai ; Nicholas Gibson Discharging Clinician: Hamlet Navarrete Anticipated Discharge Date/Time: 06/16/22 16:46 Patient Disposition: Home, Self-Care Activity: as tolerated Diet: as tolerated Patient Instructions: Antibiotic Form, Pain Management (GEN), Steffen-Close Drain Care (DC) Stand Alone Forms: General Discharge Information Follow-up/Referrals: Nicholas Gibson MD [Physician] - Aury Bai MD [Physician] - Tatianna,Georgette Irizarry MD [Primary Care Provider] - Call for Appointment Discharge Medications: New hydrocodone-acetaminophen 5-325 mg Tablet 1 tablet PO Q6H PRN (Reason: Pain Rated 4-6) Qty: 10 0RF levofloxacin 750 mg tablet 750 mg PO DAILY Qty: 7 0RF metronidazole [Flagyl] 375 mg capsule 500 mg PO Q8H Qty: 21 0RF Other Ambulatory Orders: CT abdomen pelvis wo con (Routine) Timeframe: [id number] Location: Determined by Patient Ordered By: Hamlet Navarrete Date of admission: 06/10/22 11:00 Primary Care Provider: Flory
== END 2022-06-16 17:30 | disposition home or self-care (01) | DRG 392 ==
LOC: ANHED 07:01 → ANH3MEDSUR 06-11 12:07
PROVIDERS: Internal Medicine; Internal Medicine Hematology & Oncology; Nurse Practitioner; Admitting Provider Family Medicine; Emergency Provider Emergency Medicine; PCP Family Medicine; Visit Provider Nurse Practitioner Family
DX: K57.20 Diverticulitis of large intestine with perforation and abscess without bleeding (principal); N39.0 Urinary tract infection, site not specified; C91.10 Chronic lymphocytic leukemia of B-cell type not having achieved remission; B96.20 Unspecified Escherichia coli [E. coli] as the cause of diseases classified elsewhere; B96.6 Bacteroides fragilis [B. fragilis] as the cause of diseases classified elsewhere; Z20.822 Contact with and (suspected) exposure to COVID-19; Z86.010 Personal history of colon polyps; Z90.710 Acquired absence of both cervix and uterus; Z90.49 Acquired absence of other specified parts of digestive tract
CPT/HCPCS: 36415; 51701; 74176; 74177; 75989; 76536; 80053; 81001; 82784; 83605; 83735; 84100; 84443; 85025; 85027; 85610; 85730; 87040; 87070; 87075; 87076; 87077; 87086; 87186; 87205; 87637; 93005; 96365; 96375; 99285; A9270; C1729; C1769; J0131; J1650; J2405; J2543; J3010; J3480; J7030; J7040; Q9967

== ENCOUNTER 2022-06-23 14:12 | Outpatient (CLI) | payer MEDICARE, SELFPAY ==
--- NOTE | ~2022-06-23 | CT_ITS ---
EXAMINATION: CT abdomen pelvis w con DATE: 06/23/2022 14:55 INDICATION: K57.80 - Diverticulitis of intestine, part unspecified, w... TECHNIQUE: Computed tomography (CT) of the abdomen and pelvis was performed with 100 mL Omnipaque-350 intravenous contrast. Automated exposure control and iterative reconstruction technique were employe d. The dose-length product was 625.85 mGy-cm. COMPARISON: None. FINDINGS: Lower thorax: Senescent/interstitial change and dependent atelectasis. Coronary artery and aortic kelli ve calcification. Small hiatal hernia. Liver: Diffuse fatty infiltration. Biliary/Gallbladder: Gallbladder is absent. No bile duct dilation. Pancreas: No mass or duct dilation. Spleen: Normal. Adrenals:No mass. Kidneys: Multiple simple left renal cysts and multiple bilateral hypodensities that are too small to characterize but also likely represent cysts. No suspicious mass. No hydronephrosis. GI tract: Distal esophageal and gastric wall edema. No small or large bowel dilation. Normal appendix . Lobular, 1.2 x 0.6 cm rim-enhancing fluid collection in the left wall of the distal colon at the re ctosigmoid junction (axial image [id number], coronal image [id number]). Persistent multiple thickenin g and mild inflammatory change at the distal sigmoid. Extensive diverticulosis. Mesentery/Peritoneum: No ascites, mass, or free air. Retroperitoneum: No mass. Pelvis: Stable left lower quadrant approach pigtail drain in the left lower pelvis, slightly displaci ng the urinary bladder. Asymmetric adjacent urinary bladder wall thickening, likely reactive. Surgica lly absent uterus. Similar focus of gas encircled by the pigtail loop of the drain, without residual fluid. Fluid-filled colon. Soft Tissues: Soft tissues and body wall unremarkable. Bones: No acute osseous finding. IMPRESSION: Findings concerning for the interval development of a 1.2 x 0.6 intramural abscess at the rectosigmoi d junction. Stable pigtail drain with residual gas collection and no residual fluid. Esophagitis/pee ritis. Steatosis. Fluid-filled colon, as can be seen with diarrheal illness. Reviewed, dictated and finalized at location K. TING MACHINE OPERATOR IMPRESSION: Findings concerning for the interval development of a 1.2 x 0.6 intramural absc ess at the rectosigmoid junction. Stable pigtail drain with residual gas collec tion and no residual fluid. Esophagitis/gastritis. Steatosis. Fluid-filled colo n, as can be seen with diarrheal illness.
== END 2022-06-23 14:13 | disposition home or self-care (01) ==
PROVIDERS: PCP Family Medicine; Visit Provider Internal Medicine
DX: K57.80 Diverticulitis of intestine, part unspecified, with perforation and abscess without bleeding (principal)
CPT/HCPCS: 74177; Q9967

== ENCOUNTER 2022-06-26 13:23 | Emergency (ER) | payer MEDICARE, SELFPAY ==
[2022-06-26 13:39] VITALS: BP 125/47; PULSE 107; RESP 18; TEMP 36.6; O2SAT 100
[2022-06-26 13:52] LABS: Basophils Absolute Auto 0.1 K/mm3 (0.0-0.1); Basophils Percent Auto 0.1 % (0.2-1.2); Eosinophils Absolute Auto 0.1 K/mm3 (0-0.3); Eosinophils Percent Auto 0.1 % (0-4.4); Hematocrit 35.4 % (37.0-47.0); Hemoglobin 10.6 g/dL (12.0-15.0); Immature Granulocyte Percent A 0.2 % (0-0.5); Lymphocytes Absolute Auto 84.16 K/mm3 (0.9-3.2); Lymphocytes Percent Auto 91.3 % (18.3-44.2); Mean Corpuscular HGB Conc 29.9 g/dl (32-36); Mean Platelet Volume 8.8 fl (7.4-10.4); Monocytes Absolute Auto 1.3 K/mm3 (0.1-0.6); Monocytes Percent Auto 1.5 % (2.6-8.5); Neutrophils Absolute Auto 6.3 K/mm3 (1.3-6.7); Neutrophils Percent Auto 6.8 % (45.5-73.1); Platelet Count Result 284 k/mm3 (150-375); Red Blood Count 3.65 M/mm3 (4.2-5.4); Red Cell Distribution Width 15.8 % (11.5-14.5)
[2022-06-26 14:04] LABS: Alanine Aminotransferase 13 U/L (6-35); Albumin Level 3.6 g/dL (3.5-5.1); Alkaline Phosphatase 44 U/L (38-126); Anion Gap 6 mmol/L (8-16); Aspartate Amino Transferase 24 U/L (14-36); Bilirubin,Total 0.5 mg/dL (0.2-1.3); Blood Urea Nitrogen 13 mg/dL (7-17); Calcium 8.5 mg/dL (8.4-10.2); Carbon Dioxide 25 mmol/L (22-30); Chloride 103 mmol/L (98-107); Estimated Glomerular Filt Rate > 60; Glucose 128 mg/dL (65-110); Sodium 134 mmol/L (137-145)
[2022-06-26 14:25] LABS: White Blood Count 92.2 K/mm3 (4.5-10.0)
[2022-06-26 14:29] LABS: Platelet Estimate Adequate (Adequate); Smudge Cells MANY
[2022-06-26 14:30] LABS: Anisocytosis 1+ (NORMAL); Atypical Lymphocytes Present; Schistocytes 1+ (NORMAL)
[2022-06-26 16:01] LABS: Add Urine Microscopic? YES; Appearance Urine Clear (Clear); Bilirubin Urine Negative (Negative); Blood Urine 2+ (Negative); Color Urine Yellow (Yellow); Glucose Urine UA Negative (Negative); Ketones Urine Negative (Negative); Leukocyte Esterase Ur Negative LEU/UL (Negative); Nitrate Urine Negative (Negative); Protein Urine Trace mg/dL (Negative); Specific Grav Ur 1.025 (1.001-1.035); Urobilinogen Urine 0.2 mg/dL (<2.0); pH Urine 5.5 (5.0-9.0)
[2022-06-26 16:16] LABS: Mucus Urine Rare /lpf; Squamous Epithelial Cell Urine Rare /hpf (Few); WBC Urine 0-3 /hpf
--- NOTE | 2022-06-26 17:24 | ED.FEMALEGU ---
HPI - Female Genitourinary General Chief complaint: Urogenital-Female Stated complaint: UTI symptoms Time Seen by Provider: 06/26/22 15:34 History of Present Illness HPI Narrative: Patient is an 86-year-old female who presents ER with irritation to her vagina and rectal region. She has been having dysuria over the last couple days. She was seen by Dr. Bai recently as she has been treated for diverticulitis with abscess and microperforation. She is discontinued her oral antibiotics. She had been having frequent diarrhea but has slowed in the last day. No abdominal pain or discomfort. No fevers or chills or sweats. She reports burning when she urinates and was unsure if she had a UTI. Urgent care referred her here. Related Data Allergies Allergy/AdvReac Type Severity Reaction Status Date / Time tetracycline Allergy Unknown Unknown Verified 06/24/22 10:48 Review of Systems Constitutional: Constitutional: Denies chills and Denies fatigue Gastrointestinal: Gastrointestinal: Denies abdominal pain, Reports diarrhea, Denies nausea and Denies vomiting Genitourinary: Genitourinary: Denies abnormal vaginal bleeding, Denies nocturia and Reports dysuria Integumentary/Breasts: Skin/Breast: Reports erythema and Reports rash PMFSH Past Medical History Medical History Chronic lymphocytic leukemia History of UTI Surgical History Surgical History H/O cataract extraction History of colonoscopy with polypectomy History of laparoscopic cholecystectomy History of total abdominal hysterectomy Family History Family History Father Family history of lung cancer Patient's father is Mother Patient's mother is Social History Social History Social History: She is and lives home alone. She has 3 children. Her son and daughter that live nearby ER that durable power finance attorney for healthcare. She has never smoked. She worked for [employer]. No alcohol marijuana or illicit drugs. Code status full code Smoking status: Never smoker Alcohol intake: never Substance use: never Lack of Transportation: No Lack of Food: Never True Current Housing: I Have Housing Concerned About Future Housing: No Difficulty Paying Gas/Electric Bills: No Difficulty Paying for Meds: No Currently Unemployed: No Education: High School Diploma/GED Difficulty w/ Childcare or Family Care: No Spiritual care concerns: No Exam Narrative: GENERAL: Well-appearing, well-nourished, and in no acute distress. HEAD: Normocephalic, atraumatic. EYES: PERRL and EOMI. CHEST: Clear to auscultation. No respiratory distress. HEART: Regular rate and rhythm. Normal peripheral pulses. ABDOMEN: Soft, nontender, nondistended. : Inflammation of the vulva/perineum/rectal area consistent with diaper rash. No white caking or weeping. There is some areas of irritation and bleeding. EXTREMITIES: Normal range of motion. No edema. NEURO: Alert and oriented x3. PSYCH: Normal mood and affect. Course Course Emergency Course: Patient has pretty severe diaper rash and likely has a component of yeast infection there. She will be given Diflucan here and then 1 dose for home. Recommend barrier cream and good hygiene. Because patient's stools are slowing down she should start to improve. Vital Signs Vital signs: Vital Signs Temperature 98 F 06/26/22 13:39 Pulse Rate 107 H 06/26/22 13:39 Respiratory Rate 18 06/26/22 13:39 Blood Pressure 125/47 L 06/26/22 13:39 Pulse Oximetry 100 06/26/22 13:39 Oxygen Delivery Room Air 06/26/22 13:39 Temperature 98 F 06/26/22 13:39 Pulse Rate 80 06/26/22 17:30 Respiratory Rate 16 06/26/22 17:30 Blood
[2022-06-26 17:30] VITALS: BP 134/72; PULSE 80; RESP 16; O2SAT 99
[2022-06-26] MEDS: FLUCONAZOLE 150 MG TABLET PO (17:47)
--- NOTE | 2022-07-07 13:55 | PC.NURSE ---
LATE ENTRY This note is being entered to document information to the patient's record. The following information was omitted on [06/26/22 ], by [Cricket Eng RN]. Beverly gauthier for ua collection by [employer].
== END 2022-06-26 19:09 | disposition home or self-care (01) ==
PROVIDERS: Emergency Provider Emergency Medicine; PCP Family Medicine
DX: L22 Diaper dermatitis (principal); C91.10 Chronic lymphocytic leukemia of B-cell type not having achieved remission; Z87.440 Personal history of urinary (tract) infections; Z98.49 Cataract extraction status, unspecified eye; Z90.710 Acquired absence of both cervix and uterus
CPT/HCPCS: 36415; 51701; 80053; 81001; 85025; 99284; A9270

== ENCOUNTER → 2022-07-31 08:38 | Outpatient (CLI) | payer MEDICARE, SELFPAY ==
--- NOTE | ~2022-07-31 | CT_ITS ---
CT Abdomen and Pelvis with contrast. History: Colovesical fistula. Spiral CT of the abdomen and pelvis was performed after the administration of intravenous contrast. 1 00 cc of Omnipaque 350 was administered intravenously without complication. Dose reduction technique was used on this scan by utilizing automated exposure control and iterative reconstruction technique. The dose-length product (DLP) was 385.97 mGy-cm. COMPARISON: 06/23/2022 Findings: Scans through the lung bases demonstrate probable minimal bibasilar subpleural reticulation . The liver, spleen, pancreas, adrenals and kidneys are within normal limits. Cholecystectomy clips pre sent. No evidence of aortic aneurysm. No lymphadenopathy is seen. There is no evidence of bowel obstruction. There is mild diffuse wall thickening of the sigmoid colon with underlying diverticulosis. There are minimal pericolonic inflammatory changes. Percutaneous damion inage catheter has been removed since prior exam. There is no air in the urinary bladder to suggest c olovesical fistula. There is however suggestion of possible fistula to the vaginal cuff, with air in the upper vagina. No abscess evident. Status post hysterectomy. No ascites evident. Impression: Mild wall thickening sigmoid colon with mild adjacent inflammatory changes, compatible with mild sigm oid diverticulitis. Possible colovaginal fistula to the vaginal cuff. Patient is status post hysterectomy. No distinct evidence for colovesical fistula. Reviewed, dictated and finalized at [facility]. 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 Possible colovaginal fistula to the vaginal cuff. Patient is status post hyster ectomy. No distinct evidence for colovesical fistula.
[2022-07-31 09:07] LABS: Estimated Glomerular Filt Rate 59
== END ==
PROVIDERS: PCP Family Medicine; Visit Provider Surgery
DX: N32.1 Vesicointestinal fistula (principal)
CPT/HCPCS: 74177; Q9967

== ENCOUNTER 2022-09-08 09:03 | Outpatient (CLI) | payer MEDICARE, SELFPAY ==
[2022-09-08 09:17] LABS: Basophils Absolute Auto 0.1 K/mm3 (0.0-0.1); Eosinophils Absolute Auto 0.2 K/mm3 (0-0.3); Eosinophils Percent Auto 0.1 % (0-4.4); Hematocrit 38.7 % (37.0-47.0); Hemoglobin 11.8 g/dL (12.0-15.0); Immature Granulocyte Absolute 0.19 K/mm3 (0.00-0.031); Immature Granulocyte Percent A 0.2 % (0-0.5); Lymphocytes Absolute Auto 110.86 K/mm3 (0.9-3.2); Lymphocytes Percent Auto 93.4 % (18.3-44.2); Mean Corpuscular HGB Conc 30.5 g/dl (32-36); Mean Corpuscular Volume 98.5 fl (80-100); Mean Platelet Volume 8.9 fl (7.4-10.4); Monocytes Absolute Auto 2.4 K/mm3 (0.1-0.6); Monocytes Percent Auto 2.1 % (2.6-8.5); Neutrophils Percent Auto 4.2 % (45.5-73.1); Platelet Count Result 219 k/mm3 (150-375); Red Blood Count 3.93 M/mm3 (4.2-5.4); Red Cell Distribution Width 15.1 % (11.5-14.5)
[2022-09-08 09:22] LABS: White Blood Count 118.7 K/mm3 (4.5-10.0)
[2022-09-08 09:24] LABS: Blood Urea Nitrogen 20 mg/dL (8-26); Carbon Dioxide 25 mmol/L (22-30); Chloride 106 mmol/L (98-109); Estimated Glomerular Filt Rate 53; Glucose 105 mg/dL (70-105); Ionized Calcium (POC) 1.23 mmol/L (1.11-1.31); Potassium 4.4 mmol/L (3.5-4.9); Sodium 140 mmol/L (138-146)
[2022-09-08 13:01] LABS: Alanine Aminotransferase 17 U/L (6-35); Albumin Level 4.4 g/dL (3.5-5.1); Alkaline Phosphatase 63 U/L (38-126); Anion Gap 8 mmol/L (8-16); Aspartate Amino Transferase 28 U/L (14-36); Bilirubin,Total 0.9 mg/dL (0.2-1.3); Blood Urea Nitrogen 20 mg/dL (7-17); Calcium 9.1 mg/dL (8.4-10.2); Carbon Dioxide 26 mmol/L (22-30); Chloride 107 mmol/L (98-107); Estimated Glomerular Filt Rate 53; Glucose 103 mg/dL (65-110); Potassium 4.4 mmol/L (3.4-5.0); Sodium 141 mmol/L (137-145)
== END 2022-09-08 09:04 | disposition home or self-care (01) ==
LOC: ANHLAB 09:04
PROVIDERS: PCP Family Medicine; Visit Provider Internal Medicine Hematology & Oncology
DX: C91.10 Chronic lymphocytic leukemia of B-cell type not having achieved remission (principal)
CPT/HCPCS: 36415; 80047; 80053; 85025

== ENCOUNTER 2023-03-12 08:40 | Outpatient (CLI) | payer MEDICARE, SELFPAY ==
[2023-03-12 09:02] LABS: Basophils Absolute Auto 0.1 K/mm3 (0.0-0.1); Basophils Percent Auto 0.1 % (0.2-1.2); Eosinophils Absolute Auto 0.3 K/mm3 (0-0.3); Eosinophils Percent Auto 0.3 % (0-4.4); Hematocrit 34.5 % (37.0-47.0); Hemoglobin 10.5 g/dL (12.0-15.0); Immature Granulocyte Absolute 0.19 K/mm3 (0.00-0.031); Immature Granulocyte Percent A 0.2 % (0-0.5); Lymphocytes Absolute Auto 87.53 K/mm3 (0.9-3.2); Mean Corpuscular HGB Conc 30.4 g/dl (32-36); Mean Corpuscular Hemoglobin 30.2 pg (26-34); Mean Corpuscular Volume 99.1 fl (80-100); Mean Platelet Volume 8.8 fl (7.4-10.4); Monocytes Absolute Auto 2.1 K/mm3 (0.1-0.6); Monocytes Percent Auto 2.2 % (2.6-8.5); Neutrophils Percent Auto 5.2 % (45.5-73.1); Platelet Count Result 215 k/mm3 (150-375); Red Blood Count 3.48 M/mm3 (4.2-5.4); Red Cell Distribution Width 14.2 % (11.5-14.5)
[2023-03-12 09:05] LABS: Blood Urea Nitrogen 23 mg/dL (8-26); Carbon Dioxide 24 mmol/L (22-30); Chloride 106 mmol/L (98-109); Estimated Glomerular Filt Rate 42; Glucose 108 mg/dL (70-105); Ionized Calcium (POC) 1.17 mmol/L (1.11-1.31); Potassium 3.9 mmol/L (3.5-4.9); Sodium 140 mmol/L (138-146)
[2023-03-12 09:06] LABS: White Blood Count 95.2 K/mm3 (4.5-10.0)
[2023-03-12 09:08] LABS: Atypical Lymphocytes Present; Platelet Estimate Adequate (Adequate); Schistocytes None Seen (NORMAL); Smudge Cells PRESENT
[2023-03-12 11:11] LABS: Lactate Dehydrogenase 188 U/L (120-246)
[2023-03-12 16:27] LABS: Iron 69 ug/dL (37-170)
[2023-03-12 16:40] LABS: Percent Iron Saturation 24 % (20-50)
== END 2023-03-12 08:41 | disposition home or self-care (01) ==
LOC: ANHLAB 08:42
PROVIDERS: PCP Family Medicine; Visit Provider Internal Medicine Hematology & Oncology
DX: C91.10 Chronic lymphocytic leukemia of B-cell type not having achieved remission (principal)
CPT/HCPCS: 36415; 80047; 82607; 82728; 83540; 83550; 83615; 85025

== ENCOUNTER 2023-03-30 13:39 | Emergency (ER) | payer MEDICARE, SELFPAY ==
--- NOTE | 2023-03-30 13:41 | ECG_ITS ---
Measurements Intervals [place] Rate: 103 P: ME: 0 QRS: 2 QRSD: 77 T: -2 QT: 323 QTc: 424 Interpretive Statements ATRIAL FIBRILLATION WITH RAPID VENTRICULAR RESPONSE LOW QRS VOLTAGE IN PRECORDIAL LEADS [QRS DEFLECTION < 1.0 mV IN CHEST LEADS] MINIMAL ST DEPRESSION [0.025+ mV ST DEPRESSION] ABNORMAL RHYTHM ECG COMPARED TO ECG 06/10/2022 07:41:34 ATRIAL FIBRILLATION NOW PRESENT Electronically Signed On 03-30-2023 15:49:15 CDT by Gordon Rivas M.D.
[2023-03-30 13:51] VITALS: BP 124/83; PULSE 103; RESP 20; TEMP 37.1; O2SAT 98
[2023-03-30 14:26] VITALS: PULSE 104
[2023-03-30 14:29] VITALS: BP 132/73; PULSE 107; RESP 17; O2SAT 98
[2023-03-30 14:39] LABS: Basophils Absolute Auto 0.2 K/mm3 (0.0-0.1); Basophils Percent Auto 0.2 % (0.2-1.2); Eosinophils Absolute Auto 0.3 K/mm3 (0-0.3); Eosinophils Percent Auto 0.3 % (0-4.4); Hematocrit 35.5 % (37.0-47.0); Hemoglobin 10.6 g/dL (12.0-15.0); Immature Granulocyte Absolute 0.22 K/mm3 (0.00-0.031); Immature Granulocyte Percent A 0.2 % (0-0.5); Lymphocytes Absolute Auto 100.35 K/mm3 (0.9-3.2); Lymphocytes Percent Auto 92.8 % (18.3-44.2); Mean Corpuscular HGB Conc 29.9 g/dl (32-36); Mean Corpuscular Hemoglobin 29.5 pg (26-34); Mean Corpuscular Volume 98.9 fl (80-100); Mean Platelet Volume 8.9 fl (7.4-10.4); Monocytes Absolute Auto 1.7 K/mm3 (0.1-0.6); Monocytes Percent Auto 1.5 % (2.6-8.5); Neutrophils Absolute Auto 5.4 K/mm3 (1.3-6.7); Platelet Count Result 271 k/mm3 (150-375); Red Blood Count 3.59 M/mm3 (4.2-5.4); Red Cell Distribution Width 14.9 % (11.5-14.5)
[2023-03-30 14:48] LABS: INR 1.1; Prothrombin Time 14.7 Seconds (11.1-14.7)
[2023-03-30 14:49] LABS: Alanine Aminotransferase 13 U/L (6-35); Albumin Level 4.2 g/dL (3.5-5.1); Alkaline Phosphatase 56 U/L (38-126); Anion Gap 8 mmol/L (8-16); Aspartate Amino Transferase 31 U/L (14-36); Bilirubin,Total 0.8 mg/dL (0.2-1.3); Blood Urea Nitrogen 23 mg/dL (7-17); Carbon Dioxide 25 mmol/L (22-30); Chloride 104 mmol/L (98-107); Estimated Glomerular Filt Rate 52; Glucose 103 mg/dL (65-110); Lipase 141 U/L (23-300); Partial Thromboplastin Time 28.1 SECONDS (22.3-36.8); Potassium 4.3 mmol/L (3.4-5.0); Sodium 137 mmol/L (137-145)
[2023-03-30 14:55] LABS: White Blood Count 108.2 K/mm3 (4.5-10.0)
[2023-03-30 14:57] LABS: Hypochromasia 1+ (NORMAL); Platelet Estimate Adequate (Adequate); Smudge Cells PRESENT
[2023-03-30 14:58] LABS: Schistocytes None Seen (NORMAL)
[2023-03-30 14:59] LABS: Troponin I < 0.012 ng/mL (0.000-0.034)
[2023-03-30 15:50] VITALS: BP 129/71; PULSE 87; RESP 16; O2SAT 98
--- NOTE | 2023-03-30 18:54 | ED.ARRPALP ---
HPI - Arrhythmia/Palpitations General Chief Complaint: Arrhythmia/Palpitations Stated Complaint: irregular heart rhythm Time Seen by Provider: 03/30/23 14:26 History of Present Illness HPI narrative: Patient presenting here because she was told by insurance company that she had an irregular heart beat and needed to be seen; she has no complaints and no symptoms whatsoever. She is being treated for cancer. No lower extremity pain or swelling or chest pain or difficulty breathing Related Data Home Medications Medication Instructions Recorded Confirmed ascorbic acid (vitamin C) 100 mg 100 mg PO DAILY 03/17/23 03/17/23 chewable tablet aspirin 81 mg tablet,delayed 81 mg PO DAILY 03/17/23 03/17/23 release ferrous sulfate 325 mg (65 mg 325 mg PO DAILY 03/17/23 03/17/23 iron) tablet (iron) [id number]-sui-ivmmy 80 mcg-lutein tablet PO 03/17/23 03/17/23 166.7 mcg-herbal 66.7 mg chew tablet (Alive Premium Women's 50 Plus) omega-3 150 xc-pcv-lkj-fish oil cap PO 03/17/23 03/17/23 500 mg-D3 200 unit capsule,delayed rel ([place]-3 Plus Vitamin D3) Allergies Allergy/AdvReac Type Severity Reaction Status Date / Time tetracycline Allergy Unknown Unknown Verified 03/30/23 14:28 Review of Systems Review of Systems: All systems reviewed & are unremarkable except as noted in HPI and below PMFSH Past Medical History Medical History Chronic lymphocytic leukemia History of UTI Surgical History Surgical History H/O cataract extraction History of colonoscopy with polypectomy History of laparoscopic cholecystectomy History of total abdominal hysterectomy Family History Family History Father Family history of lung cancer Patient's father is Mother Patient's mother is Social History Social History Social History: She is and lives home alone. She has 3 children. Her son and daughter that live nearby ER that [facility] power employee benefits attorney for healthcare. She has never smoked. She worked for [employer]. No alcohol marijuana or illicit drugs. Code status full code Smoking status: Never smoker Alcohol intake: never Substance use: never Lack of Transportation: No Lack of Food: Never True Current Housing: I Have Housing Concerned About Future Housing: No Difficulty Paying Gas/Electric Bills: No Difficulty Paying for Meds: No Currently Unemployed: No Education: High School Diploma/GED Difficulty w/ Childcare or Family Care: No Spiritual care concerns: No Exam Narrative: EXAMINATION OF ORGAN SYSTEMS/BODY AREAS: Constitutional: Vital signs per nursing GENERAL:[No acute distress, non-toxic appearing.] HEAD: Normal with no signs of head trauma. EYES: EOMI, conjunctiva normal ENT: Hearing grossly intact LUNGS: Nonlabored breathing. HEART: irregularly irregular rate/rhythm ABD: [Soft], [nontender to palpation] EXT: Normal range of motion, no lower extremity edema/pain SKIN: [No rashes or lesions.] NEURO: [Alert and oriented x 3. No gross focal sensory or strength deficits.] PSYCH: Normal affect Course Vital Signs Vital signs: Vital Signs Temperature 98.7 F 03/30/23 13:51 Pulse Rate 103 H 03/30/23 13:51 Respiratory Rate 20 03/30/23 13:51 Blood Pressure 124/83 03/30/23 13:51 Pulse Oximetry 98 03/30/23 13:51 Oxygen Delivery Room Air 03/30/23 13:51 Temperature 98.7 F 03/30/23 13:51 Pulse Rate 87 03/30/23 15:50 Respiratory Rate 16 03/30/23 15:50 Blood Pressure 129/71 03/30/23 15:50 Pulse Oximetry 98 03/30/23 15:50 Oxygen Delivery Room Air 03/30/23 13:51 MDM - Arrhythmia/Palpitations MDM Narrative Medical decision making narrative: Beverly
== END 2023-03-30 15:51 | disposition home or self-care (01) ==
PROVIDERS: Emergency Provider Emergency Medicine; PCP Family Medicine
DX: I48.91 Unspecified atrial fibrillation (principal); C91.10 Chronic lymphocytic leukemia of B-cell type not having achieved remission; Z87.440 Personal history of urinary (tract) infections; Z98.49 Cataract extraction status, unspecified eye; Z90.49 Acquired absence of other specified parts of digestive tract; Z90.710 Acquired absence of both cervix and uterus; Z79.82 Long term (current) use of aspirin
CPT/HCPCS: 36415; 80053; 83690; 84484; 85025; 85610; 85730; 93005; 99284

== ENCOUNTER 2023-04-02 16:41 | Inpatient (IN) | payer MEDICARE, SELFPAY ==
[2023-04-02] VITALS (8 sets, daily range): BP systolic 92–142; BP diastolic 44–110; PULSE 69–102; RESP 12–20; TEMP 36.4–37; O2SAT 98–100; BMI 27.0
--- NOTE | ~2023-04-02 | XR_ITS ---
EXAMINATION: XR hip LT min 2V DATE: 04/02/2023 17:22 INDICATION: Left hip injury. Fall. TECHNIQUE: 2 views of left hip were obtained. COMPARISON: Pelvis and left hip radiographs 03/26/14 FINDINGS: There is lumbar dextroscoliosis and severe spondylosis. No fracture. There is mild left hip osteoarthritis. IMPRESSION: 1. Mild left hip osteoarthritis. Reviewed, dictated and finalized at location E.
--- NOTE | ~2023-04-02 | XR_ITS ---
EXAMINATION: XR femur LT min 2V DATE: 04/02/2023 19:03 INDICATION: Left thigh pain. Fall. TECHNIQUE: 2 views of left femur on 4 radiographs were obtained. COMPARISON: None. FINDINGS: Bone alignment is normal. There is a nondisplaced fracture of greater trochanter. There is mild left hip osteoarthritis. Left knee demonstrates severe osteoarthritis of medial compartment and mild osteoarthritis of lateral and patellofemoral compartments. No knee joint effusion. IMPRESSION: 1. Nondisplaced fracture of greater trochanter of proximal left femur. 2. Polyarticular osteoarthritis. Reviewed, dictated and finalized at location E.
--- NOTE | ~2023-04-02 | XR_ITS ---
XR shoulder LT min 2V 04/05/2023 13:30 Indication: Left shoulder pain Procedure: 4 views left shoulder Comparison: No prior studies for comparison. Findings: Osteopenia. There is polyarticular osteoarthritis. There is calcific tendinopathy of the ro tator cuff. No foreign bodies. No acute fracture, subluxation or dislocation. Impression: 1: No acute fracture. Reviewed, dictated and finalized at location B. Impression: 1: No acute fracture.
--- NOTE | ~2023-04-02 | XR_ITS ---
EXAMINATION: XR wrist LT min 3V DATE: 04/02/2023 17:22 INDICATION: Left wrist pain post fall TECHNIQUE: Posteroanterior, oblique and lateral views of the left wrist were obtained. COMPARISON: 08/06/2015 FINDINGS: Old fracture deformity of the distal left radius which is healed with posterior and radial sided impa ction resulting in 40 degree dorsal tilt and neutral angulation of the distal articular surface. Ther e is secondary ulnar positive variance. Additional chronic fracture, unclear whether intra-articular nonunited of the ulnar styloid process. No acute fractures identified. Polyarticular osteoarthritis, moderate severity at the triscaphe, first carpometacarpal and fifth metacarpophalangeal joints and mi ld at the remaining joints at the left wrist and visualized hand. Peripheral IV at the dorsum of the carpus. Soft tissues are unremarkable. IMPRESSION: 1. Chronic fracture deformity at the distal radius and ulnar styloid process. No acute osseous abnorm ality. 2. Mild to moderate polyarticular osteoarthritis at the left hand and wrist. Reviewed, dictated and finalized at location A. IMPRESSION: 1. Chronic fracture deformity at the distal radius and ulnar styloid process. N o acute osseous abnormality. 2. Mild to moderate polyarticular osteoarthritis at the left hand and wrist.
--- NOTE | ~2023-04-02 | XR_ITS ---
XR chest 2V DATE: 04/03/2023 08:38 INDICATION: Preoperative evaluation. Left femur fracture following fall TECHNIQUE: AP and lateral views COMPARISON: None FINDINGS: Cardiomegaly. Extensive thoracic aortic calcification as well as aortic ectasia. Mild right diaphragmatic eventration. No pulmonary infiltrate or consolidation, pleural effusion or pulmonary vascular congestion or pneumo thorax is detected. Diffuse osteopenia. Thoracic dextroscoliosis and lumbar levoscoliosis and multilevel degenerative dis c disease. Status post cholecystectomy. IMPRESSION: Cardiomegaly, aortic atherosclerosis No active pulmonary disease Reviewed, dictated and finalized at location A.
--- NOTE | ~2023-04-02 | CT_ITS ---
CT hip LT wo con DATE: 04/03/2023 08:27 INDICATION: Left hip fracture TECHNIQUE: Axial images and sagittal and coronal reconstructions of the left hip. Exam dose: 438.23 mGy-cm total exam DLP. COMPARISON: 04/02/2023 left hip and left femur FINDINGS: There is a minimally displaced mildly comminuted fracture of the greater trochanter proxima l left femur. Mild to moderate left hip osteoarthritis. IMPRESSION: Minimally displaced mildly comminuted fractures of the left greater trochanter Mild to moderate left hip osteoarthritis Reviewed, dictated and finalized at Location [facility]. Reviewed, dictated and finalized at location A.
--- NOTE | 2023-04-02 17:05 | ED.GENADULT ---
HPI - General Adult General Chief complaint: Unspecified <Hermelinda Ma APRN - Last Filed: 04/02/23 21:18> Stated complaint: left hip/wrist pain <Hermelinda Ma APRN - Last Filed: 04/02/23 21:18> Time Seen by Provider: 04/02/23 17:05 <Hermelinda Ma APRN - Last Filed: 04/02/23 21:18> Source: patient, family (daughter Nidhi) and EMS <Hermelinda Ma APRN - Last Filed: 04/02/23 21:18> Mode of arrival: EMS <Hermelinda Ma APRN - Last Filed: 04/02/23 21:18> Limitations: no limitations <Hermelinda Ma APRN - Last Filed: 04/02/23 21:18> History of Present Illness HPI narrative: Patient is a pleasant 87-year-old female with past medical history as noted below, who presents emergency department today via EMS after a fall. Per patient she was at home whenever she was trying to put a trellis into ground, in the area she thought a ground hog had been hiding. She states that she was having difficulty putting it in and she was pushing down on it when she fell forward with her arms out. She is having left wrist and left hip pain. She states she laid there for a while but did not lose any consciousness. She did not strike her head or have any LOC. She states that she then crawled inside the house slowly and tried to get up in the chair but she heard a pop of the left hip and couldn't bear any weight after that. EMS was then called. Currently patient is resting on the stretcher. She is able to move her left wrist without significant pain but there is an area of swelling. she states that she has fractured that wrist in the past and has a baseline deformity. She states that there is no pain to the hip when she is not moving that whenever she starts to bend her left leg she starts to have pain. Denies numbness or tingling to bilateral upper or lower extremities. Denies any chest pain or shortness of breath. She did not strike her head. Denies any nausea. <Hermelinda Ma APRN - Last Filed: 04/02/23 21:18> Related Data Home medications: Home Medications Medication Instructions Recorded Confirmed ascorbic acid (vitamin C) 100 mg 100 mg PO DAILY 03/17/23 03/17/23 chewable tablet aspirin 81 mg tablet,delayed 81 mg PO DAILY 03/17/23 03/17/23 release ferrous sulfate 325 mg (65 mg 325 mg PO DAILY 03/17/23 03/17/23 iron) tablet (iron) wumuvpsc-egv-pvlxz 80 mcg-lutein tablet PO 03/17/23 03/17/23 166.7 mcg-herbal 66.7 mg chew tablet (Alive Premium Women's 50 Plus) omega-3 150 zr-ncb-ekv-fish oil cap PO 03/17/23 03/17/23 500 mg-D3 200 unit capsule,delayed rel ([place]-3 Plus Vitamin D3) <Hermelinda Ma APRN - Last Filed: 04/02/23 21:18> Allergies/adverse reactions: Allergies Allergy/AdvReac Type Severity Reaction Status Date / Time tetracycline Allergy Unknown Unknown Verified 04/02/23 17:00 <Hermelinda Ma APRN - Last Filed: 04/02/23 21:18> Review of Systems Review of Systems: CONSTITUTIONAL: Denies fever, chills, or sweats. EYES: Denies visual changes, redness, or discharge. ENT: Denies rhinorrhea, congestion, sore throat, or otalgia. CARDIOVASCULAR: Denies chest pain, palpitations, or edema. RESPIRATORY: Denies cough or dyspnea. GASTROINTESTINAL: Denies abdominal pain, nausea, vomiting, or diarrhea. GENITOURINARY: Denies dysuria or hematuria. SKIN: Denies rash or itching. MUSCULOSKELETAL: left hip and left wrist pain. swelling to left wrist. Denies back pain. NEUROLOGIC: Denies headache, numbness, or weakness. PSYCHIATRIC: Denies anxiety or depression. <Hermelinda Ma APRN - Last Filed: 04/02/23 21:18> All systems reviewed & are unremarkable except as noted in HPI and below <Hermelinda Ma APRN - Last Filed: 04/02/23 21:18> PMFSH Past Medical History Medical History: Medical History Chronic lymphocytic leukemia History of UTI <Hermelinda Ma APRN - Last Filed: 04/02/23 21:18> [place]
[2023-04-02] MEDS: fentaNYL CITRATE INJ (*CRX) 100 MCG/2 ML VIAL 50 MCG IV PUSH (18:18)
[2023-04-02] MEDS: LIDOCAINE 5% PATCH 1 PATCH TRANSDERM (18:18)
[2023-04-02] MEDS: ONDANSETRON INJ 4 MG/2 ML VIAL IV PUSH (18:18)
--- NOTE | 2023-04-02 18:42 | PC.NURSE ---
patient unable to bear weight. attempted to ambulate with walker. provider aware
--- NOTE | 2023-04-02 19:33 | PC.NURSE ---
Patient states that when she remains still in bed there is no pain in her hip, however there is pain when she moves.
[2023-04-02 19:41] LABS: Hematocrit 33.7 % (37.0-47.0); Hemoglobin 9.9 g/dL (12.0-15.0); Mean Corpuscular HGB Conc 29.4 g/dl (32-36); Mean Corpuscular Hemoglobin 29.5 pg (26-34); Mean Corpuscular Volume 100.3 fl (80-100); Mean Platelet Volume 9.1 fl (7.4-10.4); Platelet Count Result 226 k/mm3 (150-375); Red Blood Count 3.36 M/mm3 (4.2-5.4); Red Cell Distribution Width 14.9 % (11.5-14.5)
[2023-04-02 19:50] LABS: Potassium 5.1 mmol/L (3.4-5.0)
[2023-04-02 19:55] LABS: INR 1.2; Prothrombin Time 15.4 Seconds (11.1-14.7)
[2023-04-02 19:59] LABS: Alanine Aminotransferase 12 U/L (6-35); Albumin Level 3.9 g/dL (3.5-5.1); Alkaline Phosphatase 58 U/L (38-126); Anion Gap 7 mmol/L (8-16); Aspartate Amino Transferase 35 U/L (14-36); Bilirubin,Total 0.8 mg/dL (0.2-1.3); Blood Urea Nitrogen 22 mg/dL (7-17); Carbon Dioxide 25 mmol/L (22-30); Chloride 106 mmol/L (98-107); Estimated Glomerular Filt Rate 42; Glucose 111 mg/dL (65-110); Sodium 138 mmol/L (137-145)
[2023-04-02 20:05] LABS: White Blood Count 102.7 K/mm3 (4.5-10.0)
[2023-04-02 20:09] LABS: Lymphocytes Absolute Manual 94.48 K/mm3 (1.1-4.5); Neutrophils Percent Manual 8 % (46-73); Platelet Estimate Adequate (Adequate); Total Cells Counted 100
[2023-04-02 20:10] LABS: Schistocytes None Seen (NORMAL)
[2023-04-02 20:11] LABS: Anisocytosis 1+ (NORMAL); Hypochromasia 1+ (NORMAL)
--- NOTE | 2023-04-02 21:14 | ADMGEN ---
This patient, Kemi Ford, was admitted to [facility] Surg Room 304-02 at 2114. Patient/family oriented to hospital policies and general routines including ID bracelet, bed and alarms, visiting hours, pain management, procedures, bathroom and other care routines, personal items, smoking policy, room service/diet, and visiting hours. Information on how to activate the Rapid Response Team has been discussed. Patient/Family are encouraged to report perceived risks to care and to ask questions if they do not understand what they are told or what they should do.
--- NOTE | 2023-04-02 23:28 | PM.IMHP ---
H&P: HPI History of Present Illness Date/Time: 04/02/23 23:28 Chief Complaint: Patient brought to the ER for evaluation by EMS after she fell down and had left hip pain Narrative: She is a very pleasant 87 years old lady who appears much younger than her stated age. She lives alone at home. She has heard there was a ground hog hiding in the area so she was trying to put a trellis into the ground. She was pushing down on it and she fell forward with her arms out. She complains of left wrist and hip pain. He denies hitting her her head or losing consciousness. She crawled inside and tried to get up in the chair and heard a pop on the left hip and was unable to bear any weight after that. She called EMS and came to the ER for evaluation. Workup was done which showed left hip fracture. She is being admitted for medical management, orthopedic evaluation and possible surgery in a.m. Review of Systems Review of Systems: she denies any chest pain, palpitation, fever rigor chills, nausea vomiting, dizziness, loss of consciousness All systems reviewed & are unremarkable except as noted in HPI and below PMFSH Past Medical History Medical History Chronic lymphocytic leukemia History of UTI Surgical History Surgical History H/O cataract extraction History of colonoscopy with polypectomy History of laparoscopic cholecystectomy History of total abdominal hysterectomy Family History Family History Father Family history of lung cancer Patient's father is Mother Patient's mother is Social History Social History Social History: She is and lives home alone. She has 3 children. Her son and daughter that live nearby ER that [facility] power collections attorney for healthcare. She has never smoked. She worked for [employer]. No alcohol marijuana or illicit drugs. Code status full code Smoking status: Never smoker Second hand tobacco smoke exposure: Yes Alcohol intake: never Substance use: never Lack of Transportation: No Lack of Food: Never True Current Housing: I Have Housing Concerned About Future Housing: No Difficulty Paying Gas/Electric Bills: No Difficulty Paying for Meds: No Currently Unemployed: No Education: High School Diploma/GED Difficulty w/ Childcare or Family Care: No Occupation/Education: retired Gender identity (if verbalized by the patient): Female Spiritual care concerns: No Meds Home Medications and Allergies Home Medications Medication Instructions Recorded Confirmed Type ascorbic acid (vitamin C) 100 mg 100 mg PO DAILY 03/17/23 04/02/23 History chewable tablet aspirin 81 mg tablet,delayed 81 mg PO DAILY 03/17/23 04/02/23 History release ferrous sulfate 325 mg (65 mg 325 mg PO DAILY 03/17/23 04/02/23 History iron) tablet (iron) omega-3 150 yz-vif-auz-fish oil 1 cap PO DAILY 03/17/23 04/02/23 History 500 mg-D3 200 unit capsule,delayed rel ([place]-3 Plus Vitamin D3) vwwatjdt-kvju-iivpc acid 240 1 tablet PO DAILY 04/02/23 04/02/23 History mcg-vit K 120 kml-idxfch-flsx 293 tablet (Alive Women's 50 Plus (fruit-veg blend)) Allergies Allergy/AdvReac Type Severity Reaction Status Date / Time tetracycline Allergy Unknown Unknown Verified 04/02/23 22:01 Vital Signs Vital Signs - 24 hr 04/02/23 16:40 04/02/23 18:31 04/02/23 19:21 Temperature 37.0 C Pulse Rate 93 102 H 91 Respiratory Rate 20 20 Blood Pressure 138/84 142/110 H Pulse Oximetry 99 99 Oxygen Delivery Room Air 04/02/23 19:22 04/02/23 20:05 04/02/23 20:58 Temperature 36.4 C Pulse Rate 92 98 98 Respiratory Rate 12 13 15 Blood Pressure 113/79 107/44 L 92/68 L Pulse Oximetry 100 100 98 Oxygen D
[2023-04-03] VITALS (8 sets, daily range): BP systolic 111–133; BP diastolic 57–81; PULSE 84–125; RESP 12–16; TEMP 36.7–36.9; O2SAT 99
[2023-04-03] MEDS: SODIUM CHLORIDE 0.9% IV 1,000 ML 75 ML IV CONT ×2 (02:16→17:35)
--- NOTE | 2023-04-03 07:00 | ECG_ITS ---
Measurements Intervals [place] Rate: 91 P: NC: 0 QRS: -5 QRSD: 81 T: -7 QT: 353 QTc: 435 Interpretive Statements ATRIAL FIBRILLATION LOW QRS VOLTAGE IN PRECORDIAL LEADS [QRS DEFLECTION < 1.0 mV IN CHEST LEADS] MINIMAL ST DEPRESSION [0.025+ mV ST DEPRESSION] ABNORMAL ECG COMPARED TO ECG 03/30/2023 13:45:56 NO SIGNIFICANT CHANGES Electronically Signed On 04-03-2023 8:32:17 CDT by Aldo Morelos M.D.
--- NOTE | 2023-04-03 07:14 | PM.CNOR ---
Assessment and Plan Assessment and plan (1) Greater trochanter fracture: Code(s): S72.113A - Displaced fracture of greater trochanter of unspecified femur, initial encounter for closed fracture Status: Acute Plan Patient has greater trochanteric Fx Left hip.Unable to bear wwight. Has pain with motion. Will check CT scan to R/O extension. Non weight bearing Left. Will need NH lacement. History of Present Illness HPI Consult date: 04/03/23 Chief complaint: Acute Left Greater Trochanter Proximal Femur FX Narrative: Patient had fall with inability to walk. Unable to bear weight on Left leg. Brought to ER and greater trochanteric Fx found. Review of Systems Musculoskeletal: Musculoskeletal: Reports as per HPI, Reports abnormal gait and Reports limited range of motion PMFSH Past Medical History Medical History Chronic lymphocytic leukemia History of UTI Surgical History Surgical History H/O cataract extraction History of colonoscopy with polypectomy History of laparoscopic cholecystectomy History of total abdominal hysterectomy Family History Family History Father Family history of lung cancer Patient's father is Mother Patient's mother is Social History Social History Social History: She is and lives home alone. She has 3 children. 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 She has never smoked. She worked for [employer]. No alcohol marijuana or illicit drugs. Code status full code Smoking status: Never smoker Second hand tobacco smoke exposure: Yes Alcohol intake: never Substance use: never Lack of Transportation: No Lack of Food: Never True Current Housing: I Have Housing Concerned About Future Housing: No Difficulty Paying Gas/Electric Bills: No Difficulty Paying for Meds: No Currently Unemployed: No Education: High School Diploma/GED Difficulty w/ Childcare or Family Care: No Occupation/Education: retired Gender identity (if verbalized by the patient): Female Spiritual care concerns: No Meds Home Medications and Allergies Home Medications Medication Instructions Recorded Confirmed Type ascorbic acid (vitamin C) 100 mg 100 mg PO DAILY 03/17/23 04/02/23 History chewable tablet aspirin 81 mg tablet,delayed 81 mg PO DAILY 03/17/23 04/02/23 History release ferrous sulfate 325 mg (65 mg 325 mg PO DAILY 03/17/23 04/02/23 History iron) tablet (iron) omega-3 150 wk-sqe-qcy-fish oil 1 cap PO DAILY 03/17/23 04/02/23 History 500 mg-D3 200 unit capsule,delayed rel (Eldon-3 Plus Vitamin D3) asqdynux-afmu-qgemw acid 240 1 tablet PO DAILY 04/02/23 04/02/23 History mcg-vit K 120 org-vyhmtf-gwgz 293 tablet (Alive Women's 50 Plus (fruit-veg blend)) Allergies Allergy/AdvReac Type Severity Reaction Status Date / Time tetracycline Allergy Unknown Unknown Verified 04/02/23 22:01 Vital Signs Vital Signs - 24 hr 04/02/23 16:40 04/02/23 18:31 04/02/23 19:21 Temperature 98.6 F Pulse Rate 93 102 H 91 Respiratory Rate 20 20 Blood Pressure 138/84 142/110 H Pulse Oximetry 99 99 Oxygen Delivery Room Air 04/02/23 19:22 04/02/23 20:05 04/02/23 20:58 Temperature 97.6 F Pulse Rate 92 98 98 Respiratory Rate 12 13 15 Blood Pressure 113/79 107/44 L 92/68 L Pulse Oximetry 100 100 98 Oxygen Delivery 04/02/23 21:26 04/02/23 23:07 04/02/23 23:38 Temperature 98.2 F 97.9 F Pulse Rate 69 88 Respiratory Rate 14 13 Blood Pressure 114/62 123/67 Pulse Oximetry 99 99 Oxygen Delivery Room Air 04/03/23 00:12 04/03/23 04:00 Temperature 98.3 F Pulse Rate 84 Respiratory Rate 12 Blood Pressure 117/68
[2023-04-03 07:30] LABS: Basophils Absolute Auto 0.1 K/mm3 (0.0-0.1); Basophils Percent Auto 0.1 % (0.2-1.2); Eosinophils Absolute Auto 0.3 K/mm3 (0-0.3); Eosinophils Percent Auto 0.3 % (0-4.4); Hematocrit 31.8 % (37.0-47.0); Hemoglobin 9.3 g/dL (12.0-15.0); Immature Granulocyte Absolute 0.15 K/mm3 (0.00-0.031); Immature Granulocyte Percent A 0.2 % (0-0.5); Lymphocytes Absolute Auto 83.13 K/mm3 (0.9-3.2); Lymphocytes Percent Auto 92.7 % (18.3-44.2); Mean Corpuscular HGB Conc 29.2 g/dl (32-36); Mean Corpuscular Hemoglobin 29.2 pg (26-34); Mean Platelet Volume 9.4 fl (7.4-10.4); Monocytes Absolute Auto 1.4 K/mm3 (0.1-0.6); Monocytes Percent Auto 1.6 % (2.6-8.5); Neutrophils Absolute Auto 4.6 K/mm3 (1.3-6.7); Neutrophils Percent Auto 5.1 % (45.5-73.1); Platelet Count Result 221 k/mm3 (150-375); Red Blood Count 3.18 M/mm3 (4.2-5.4); Red Cell Distribution Width 14.9 % (11.5-14.5)
[2023-04-03 07:40] LABS: Anion Gap 4 mmol/L (8-16); Blood Urea Nitrogen 18 mg/dL (7-17); Calcium 8.3 mg/dL (8.4-10.2); Carbon Dioxide 26 mmol/L (22-30); Chloride 105 mmol/L (98-107); Estimated Glomerular Filt Rate 52; Glucose 111 mg/dL (65-110); Potassium 4.9 mmol/L (3.4-5.0); Sodium 135 mmol/L (137-145)
[2023-04-03 07:51] LABS: White Blood Count 89.7 K/mm3 (4.5-10.0)
[2023-04-03 07:52] LABS: Anisocytosis 1+ (NORMAL); Platelet Estimate Adequate (Adequate); Schistocytes None Seen (NORMAL); Smudge Cells PRESENT
--- NOTE | 2023-04-03 08:33 | PM.IMPN ---
Progress Note: A&P Assessment and Plan (1) Fall from ground level: Code(s): W18.30XA - Fall on same level, unspecified, initial encounter Status: Acute Assessment and Plan: Fall at home Nondisplaced fracture of greater trochanter of proximal left femur Orthopedics consulted NWB left lower extremity Plan to go for OR tomorrow for repair. Awaiting cardiology to give clearance. CT left hip IMPRESSION: Minimally displaced mildly comminuted fractures of the left greater trochanter Mild to moderate left hip osteoarthritis? (2) Closed fracture of greater trochanter of left femur: Qualifiers: Encounter type: initial encounter Fracture alignment: nondisplaced Qualified Code(s): S72.115A - Nondisplaced fracture of greater trochanter of left femur, initial encounter for closed fracture Code(s): S72.112A - Displaced fracture of greater trochanter of left femur, initial encounter for closed fracture Status: Acute Assessment and Plan: see 1 Subjective Date/time seen: 04/03/23 08:33 Interval history: HPI obtained from chart, She is a very pleasant 87 years old? lady who appears much younger than her stated age.? She has a past medical history of CLL for which she follows with Dr. Gibson, iron deficiency anemia and she recently was scheduled to see a bridal sales consultant, on Wednesday for AFib. She lives alone at home.? She has heard there was a ground hog hiding in the area so she was trying to put a trellis? into the ground.? She was pushing down on it and she fell forward with her arms out.? She complains of left wrist and hip pain.? He denies hitting her her head or losing consciousness.? She crawled inside and tried to get up in the chair and heard a pop on the left hip and was unable to bear any weight after that.? She called EMS and came to the ER for evaluation.? Workup was done which showed left hip fracture.? She is being admitted for medical management, orthopedic evaluation and possible surgery in a.m. Interval history, 04/03-very pleasant woman seen with her daughter at bedside. She states she is feeling well today. She is little discouraged because yesterday was the 1st today she really was feeling back to her normal self and then she fell. 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 Since then she has been week up until yesterday when she finally felt back to herself. At rest she has no pain to her head but notices pain whenever she tries to reposition in bed. She says that she was scheduled to see a bridal sales consultant on Wednesday for concerns for ?erratic heart rate?. I spoke with Dr. Stover today who would like to proceed with surgery tomorrow after we obtain clearance from Cardiology. Will advance her diet to heart healthy today and place her NPO at midnight. Review of Systems Review of Systems: All systems reviewed & are unremarkable except as noted in HPI and below Exam Narrative: General: well appearing, well developed, well nourished, appears stated age. HEENT: normocephalic, atraumatic. Mucous membranes moist. EOMI, PERRLA, bilateral sclera anicteric, no conjunctival injection. Neck supple without JVD, lymphadenopathy, or bruit. Respiratory: clear to auscultation bilaterally. No rales/rhonic/wheezes. Cardiovascular: Regular rate and rhythm, normal S1-S2 upon auscultation. No murmurs, rubs, or clicks. PMI is nondisplaced, capillary re-fill less than 3 second. Abdomen: Soft, flat, no pulsatile masses, non-distended and slightly tender to LLQ. No rebound, no guarding. No CVA tenderness, no hepatosplenomegaly. Bowel sounds present to all four quadrants. No high pitch or tinkling sounds, resonant to percussion. Extremities: No cyanosis, clubbing, or edema present. Pulses are palpable 2/2. Active ROM to all four extremities. Neuro: Alert and orientated x 4. PERRLA. Cranial
--- NOTE | 2023-04-03 10:42 | PCOTNOTE ---
Attempted OT evaluation; per RN unsure of plan for surgery. Waiting to hear back from ortho doctor. Will check back again as able.
[2023-04-04] VITALS (11 sets, daily range): BP systolic 101–121; BP diastolic 58–72; PULSE 80–100; RESP 12–22; TEMP 36.4–36.9; O2SAT 97–99
[2023-04-04] MEDS: SODIUM CHLORIDE 0.9% IV 1,000 ML 75 ML IV CONT ×2 (05:42→20:12)
[2023-04-04 06:32] LABS: Eosinophils Absolute Auto 0.3 K/mm3 (0-0.3); Eosinophils Percent Auto 0.4 % (0-4.4); Hematocrit 30.1 % (37.0-47.0); Hemoglobin 8.8 g/dL (12.0-15.0); Immature Granulocyte Absolute 0.12 K/mm3 (0.00-0.031); Immature Granulocyte Percent A 0.1 % (0-0.5); Lymphocytes Absolute Auto 76.25 K/mm3 (0.9-3.2); Lymphocytes Percent Auto 93.6 % (18.3-44.2); Mean Corpuscular HGB Conc 29.2 g/dl (32-36); Mean Corpuscular Hemoglobin 29.3 pg (26-34); Mean Corpuscular Volume 100.3 fl (80-100); Mean Platelet Volume 9.1 fl (7.4-10.4); Monocytes Absolute Auto 0.5 K/mm3 (0.1-0.6); Monocytes Percent Auto 0.6 % (2.6-8.5); Neutrophils Absolute Auto 4.3 K/mm3 (1.3-6.7); Neutrophils Percent Auto 5.3 % (45.5-73.1); Platelet Count Result 195 k/mm3 (150-375); Red Cell Distribution Width 15.1 % (11.5-14.5)
[2023-04-04 06:42] LABS: Anion Gap 4 mmol/L (8-16); Blood Urea Nitrogen 15 mg/dL (7-17); Calcium 8.1 mg/dL (8.4-10.2); Carbon Dioxide 26 mmol/L (22-30); Chloride 106 mmol/L (98-107); Estimated Glomerular Filt Rate 52; Glucose 103 mg/dL (65-110); Magnesium 2.2 mg/dL (1.6-2.3); Phosphorus 3.7 mg/dL (2.5-4.5); Potassium 4.8 mmol/L (3.4-5.0); Sodium 136 mmol/L (137-145)
[2023-04-04 06:56] LABS: White Blood Count 81.5 K/mm3 (4.5-10.0)
[2023-04-04 06:58] LABS: Anisocytosis 1+ (NORMAL); Hypochromasia 1+ (NORMAL); Platelet Estimate Adequate (Adequate); Schistocytes None Seen (NORMAL); Smudge Cells PRESENT
--- NOTE | 2023-04-04 08:17 | PM.CNCAR ---
Assessment and Plan Assessment and plan (1) Closed fracture of greater trochanter of left femur: Qualifiers: Encounter type: initial encounter Fracture alignment: nondisplaced Qualified Code(s): S72.115A - Nondisplaced fracture of greater trochanter of left femur, initial encounter for closed fracture Code(s): S72.112A - Displaced fracture of greater trochanter of left femur, initial encounter for closed fracture Status: Acute (2) Chronic lymphocytic leukemia: Code(s): C91.10 - Chronic lymphocytic leukemia of B-cell type not having achieved remission Status: Acute (3) Atrial fibrillation: Code(s): I48.91 - Unspecified atrial fibrillation Status: Inactive Assessment and Plan: Newly recognized AFib. She has a mildly elevated heart rate. Will start her on low-dose metoprolol tartrate 12.5 mg p.o. b.i.d.. This may need to be uptitrated. will be conservative initially. She has a chads Vasc score of 3. Anticoagulation is warranted. Will hold off on starting anticoagulation until after surgery. Once okay with Ortho, will initiate either Xarelto or Eliquis and discontinue aspirin. 2D echocardiogram with Doppler also be ordered as well as a TSH and free T4 level and magnesium (4) Preop cardiovascular exam: Code(s): Z01.810 - Encounter for preprocedural cardiovascular examination Status: Acute Assessment and Plan: Patient is at low risk of perioperative cardiovascular complication for ORIF. No need for ischemic evaluation prior History of Present Illness History of Present Illness Consult date/time: 04/04/23 08:17 Requesting physician: Shereen Fernández APRN Consult reason: atrial fibrillation, pre-op evaluation and Other Reason For Visit: Acute Left Greater Trochanter Proximal Femur FX Narrative: Date of service 04/04/2023 Reason for consultation: Atrial fibrillation, preoperative evaluation Requesting provider: Shereen Fernández History patient is an 87-year-old female who is really quite healthy and appears younger than stated age. She presented hospital following a fall and she has a femur fracture. It was noted though that showed patient was in atrial fibrillation by EKG. Cardiology clearance/risk evaluation is desired prior to surgery. Patient is very active and denies any chest pain, shortness of breath, syncope, presyncope, paroxysmal nocturnal dyspnea, orthopnea, edema or palpitations. She has no bleeding problems. Review of Systems Review of Systems: All systems reviewed & are unremarkable except as noted in HPI and below Constitutional: Constitutional: Denies body ache(s) Eyes: Eyes: Denies blurry vision ENT: Reports Normal hearing present Cardiovascular: Cardiovascular: Denies chest pain and Denies palpitations Respiratory: Respiratory: Denies chest congestion and Denies hemoptysis Gastrointestinal: Gastrointestinal: Denies abdominal pain Genitourinary: Genitourinary: Denies hematuria Musculoskeletal: Musculoskeletal: Denies back pain and Reports arthralgias Integumentary/Breasts: Skin/Breast: Denies dry skin Neurologic: Denies Abnormal speech present Psychiatric: Psychiatric: Denies anxiety Endocrine: Endocrine: Denies excessive sweating Hematologic/Lymphatic: Hematologic/Lymphatic: Denies easy bleeding Allergic/Immunologic: Allergic/Immunologic: Denies GI upset with certain foods PMFSH Past Medical History Medical History Chronic lymphocytic leukemia History of UTI Surgical History Surgical History H/O cataract extraction History of colonoscopy with polypectomy History of laparoscopic cholecystectomy History of total abdominal hysterectomy Family History Family History Father Family history of lung cancer Patient's father is
[2023-04-04] MEDS: MULTIVITAMINS /C LUTEIN (CENTRUM SILVER) TABLET *BKC 1 TAB PO (08:18)
[2023-04-04] MEDS: ASCORBIC ACID 250 MG TABLET PO (08:18)
[2023-04-04] MEDS: OMEGA 3 POLYUNSAT FATTY ACIDS 1 GM CAP PO (08:18)
[2023-04-04] MEDS: FERROUS SULFATE 325 MG TABLET DR BY MOUTH (08:19)
--- NOTE | 2023-04-04 08:36 | PM.IMPN ---
Progress Note: A&P Assessment and Plan (1) Fall from ground level: Code(s): W18.30XA - Fall on same level, unspecified, initial encounter Status: Acute Assessment and Plan: Fall at home Nondisplaced fracture of greater trochanter of proximal left femur Orthopedics consulted NWB left lower extremity Awaiting cardiology to give clearance. Family and patient would like to talk with Dr Cosby tomorrow for a second opinion CT left hip IMPRESSION: Minimally displaced mildly comminuted fractures of the left greater trochanter Mild to moderate left hip osteoarthritis? (2) Closed fracture of greater trochanter of left femur: Qualifiers: Encounter type: initial encounter Fracture alignment: nondisplaced Qualified Code(s): S72.115A - Nondisplaced fracture of greater trochanter of left femur, initial encounter for closed fracture Code(s): S72.112A - Displaced fracture of greater trochanter of left femur, initial encounter for closed fracture Status: Acute Assessment and Plan: see 1 (3) Atrial fibrillation: Code(s): I48.91 - Unspecified atrial fibrillation Status: Inactive Assessment and Plan: Newly diagnosed atrial fibrillation Cards was consulted and the following rec's are noted and appreciated, started on Metoprolol Tartrate 12.5 mg PO BID, titrate up as needed chads vasc score of 3. after surgery start with eliquis or xarelto for anticoagulation and d/c asa 2D echo with doppler ordered, TSH, free T4, and magnesium level Low risk for perioperative cardiovascular complication for ORIF, no need for ischemic evaluation prior. Plan Feeding:heart healthy diet Analgesia:norco, morhpine, tylenol Thromboembolic prophylaxis: scd, asa Ulcer prophylaxis: na Glycemic control: na Bowel regimen: daily miralax and colace/senna Lines: piv Antibiotics:na Awaiting second opinion from Dr Harjeet De Dios has given clearance NPO at midnight in case Dr Cosby does surgery tomorrow Subjective Date/time seen: 04/04/23 08:36 Interval history: HPI obtained from chart, She is a very pleasant 87 years old? lady who appears much younger than her stated age.? She has a past medical history of CLL for which she follows with Dr. Gibson, iron deficiency anemia and she recently was scheduled to see a applications programmer analyst, on Wednesday for AFib. She lives alone at home.? She has heard there was a ground hog hiding in the area so she was trying to put a trellis? into the ground.? She was pushing down on it and she fell forward with her arms out.? She complains of left wrist and hip pain.? He denies hitting her her head or losing consciousness.? She crawled inside and tried to get up in the chair and heard a pop on the left hip and was unable to bear any weight after that.? She called EMS and came to the ER for evaluation.? Workup was done which showed left hip fracture.? She is being admitted for medical management, orthopedic evaluation and possible surgery in a.m. Interval history, 04/03-very pleasant woman seen with her daughter at bedside. She states she is feeling well today. She is little discouraged because yesterday was the 1st today she really was feeling back to her normal self and then she fell. 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 Since then she has been week up until yesterday when she finally felt back to herself. At rest she has no pain to her head but notices pain whenever she tries to reposition in bed. She says that she was scheduled to see a applications programmer analyst on Wednesday for concerns for ?erratic heart rate?. I spoke with Dr. Stover today who would like to proceed with surgery tomorrow after we obtain clearance from Cardiology. Will advance her diet to heart healthy today and place her NPO at midnight. 04/04-no acute events overnight. Family decided that they w
[2023-04-04] MEDS: polyethylene glycoL 3350 17 GM POWD.PACK PO (11:29)
[2023-04-04] MEDS: METOPROLOL TARTRATE 12.5 MG TABLET PO ×2 (11:29→20:12)
--- NOTE | 2023-04-04 19:51 | PC.NURSE ---
Yesi Perez LPN performed care and treatments for this patient on 04/04/23. I agree with her assessments and charting.
[2023-04-04] MEDS: SENNA/DOCUSATE SODIUM TABLET 1 TAB PO (20:12)
[2023-04-05] VITALS (11 sets, daily range): BP systolic 109–128; BP diastolic 54–62; PULSE 65–102; RESP 16–18; TEMP 36.4–37.1; O2SAT 97–98
--- NOTE | 2023-04-05 | ECHO_ITS ---
Patient Info Name: Kemi Ford Age: 87 years : 1935 Gender: Female Ht: 50 in Wt: 129 lbs BSA: 1.48 m2 HR: 65 bpm BP: 109 / 54 mmHg Heart Rhythm: Atrial Fibrillation Technical Quality: Fair Exam Date: 04/05/2023 11:11 AM Exam Location: [facility] Patient Status: Inpatient Admit Date: 04/02/2023 Staff Ordering Physician: Aldo Morelos MD Rental Manager: Deysi Tabor RDCS Attending Provider: Radhames Sanderson MD Referring Physician: Jethro PUENTE; Exam Type: CA echo doppler color flow Study Info Indications - AFIB Complete two-dimensional, color flow and Doppler transthoracic echocardiogram is performed. Summary 1. Complete two-dimensional, color flow and Doppler transthoracic echocardiogram is performed. 2. Left ventricular systolic function is low normal, estimated at 50-55%. 3. Left ventricular chamber dimension is normal. 4. There is no increased left ventricular wall thickness. 5. The left ventricular diastolic function is indeterminate. 6. Left atrial chamber dimension is severely enlarged. 7. Right atrial chamber dimension is moderately enlarged. 8. There is mild aortic valve stenosis with a peak velocity of 156 cm/s, mean gradient of 4 mmHg, and aortic valve area of 1.2 cm2. 9. The mitral valve has thickened leaflets and calcified annulus. 10. There is mild to moderate mitral valve regurgitation. 11. There is moderate tricuspid valve regurgitation. 12. Mild pulmonary hypertension, estimated pulmonary arterial systolic pressure is 41 mmHg. Left Ventricle Left ventricular systolic function is low normal, estimated at 50-55%. Left ventricular chamber dimension is normal. There is no increased left ventricular wall thickness. The left ventricular diastolic function is indeterminate. Right Ventricle Right ventricular chamber dimension is normal. Right ventricular systolic function is normal. Left Atria Left atrial chamber dimension is severely enlarged. Right Atria Right atrial chamber dimension is moderately enlarged. Atrial Septum Intact interatrial septum visualized by color flow imaging. Aortic Valve The aortic valve is trileaflet. There is mild aortic valve sclerosis. There is mild aortic valve stenosis with a peak velocity of 156 cm/s, mean gradient of 4 mmHg, and aortic valve area of 1.2 cm2. There is trace aortic valve regurgitation. There is mild aortic valve calcification. Pulmonic Valve The pulmonic valve is normal. There is no pulmonic valve stenosis. There is trace pulmonic regurgitation. Mitral Valve The mitral valve has thickened leaflets and calcified annulus. There is no mitral valve stenosis. There is mild to moderate mitral valve regurgitation. Tricuspid Valve The tricuspid valve leaflets are normal. There is no significant tricuspid valve stenosis. There is moderate tricuspid valve regurgitation. Mild pulmonary hypertension, estimated pulmonary arterial systolic pressure is 41 mmHg. Pericardium/Pleural The pericardium appears normal. There is no pericardial effusion. Inferior Vena Cava Dilated inferior vena cava with <50% collapse upon inspiration consistent with elevated right atrial pressure, 15 mmHg. Aorta The aortic root size at the sinus of Valsalva is normal. Left Ventricular Outflow Tract Name Value Normal LVOT 2D LVOT Di
[2023-04-05 07:11] LABS: Basophils Absolute Auto 0.1 K/mm3 (0.0-0.1); Basophils Percent Auto 0.1 % (0.2-1.2); Eosinophils Absolute Auto 0.3 K/mm3 (0-0.3); Eosinophils Percent Auto 0.4 % (0-4.4); Hemoglobin 8.8 g/dL (12.0-15.0); Immature Granulocyte Absolute 0.12 K/mm3 (0.00-0.031); Immature Granulocyte Percent A 0.2 % (0-0.5); Lymphocytes Absolute Auto 72.85 K/mm3 (0.9-3.2); Lymphocytes Percent Auto 93.4 % (18.3-44.2); Mean Corpuscular HGB Conc 29.3 g/dl (32-36); Mean Corpuscular Hemoglobin 29.2 pg (26-34); Mean Corpuscular Volume 99.7 fl (80-100); Mean Platelet Volume 9.4 fl (7.4-10.4); Monocytes Absolute Auto 0.5 K/mm3 (0.1-0.6); Monocytes Percent Auto 0.6 % (2.6-8.5); Neutrophils Absolute Auto 4.2 K/mm3 (1.3-6.7); Neutrophils Percent Auto 5.3 % (45.5-73.1); Platelet Count Result 180 k/mm3 (150-375); Red Blood Count 3.01 M/mm3 (4.2-5.4); Red Cell Distribution Width 15.2 % (11.5-14.5)
[2023-04-05 07:14] LABS: Anion Gap 5 mmol/L (8-16); Blood Urea Nitrogen 15 mg/dL (7-17); Calcium 8.2 mg/dL (8.4-10.2); Carbon Dioxide 24 mmol/L (22-30); Chloride 108 mmol/L (98-107); Estimated Glomerular Filt Rate 59; Glucose 109 mg/dL (65-110); Potassium 4.4 mmol/L (3.4-5.0); Sodium 137 mmol/L (137-145)
[2023-04-05 07:40] LABS: Platelet Estimate Adequate (Adequate); Schistocytes None Seen (NORMAL); Smudge Cells MODERATE
[2023-04-05] MEDS: METOPROLOL TARTRATE 12.5 MG TABLET PO ×2 (08:05→20:14)
[2023-04-05] MEDS: SODIUM CHLORIDE 0.9% IV 1,000 ML 75 ML IV CONT (09:32)
--- NOTE | 2023-04-05 10:07 | P.PNIM_ITS ---
Progress Note: A&P Assessment and Plan (1) Fall from ground level: Code(s): W18.30XA - Fall on same level, unspecified, initial encounter Status: Acute Assessment and Plan: 04/04/23: * S/P Fall at home * Nondisplaced fracture of greater trochanter of proximal left femur * Orthopedics consulted * NWB left lower extremity * Awaiting cardiology to give clearance. * Family and patient would like to talk with Dr Cosby tomorrow for a second opinion * CT left hip -IMPRESSION: Minimally displaced mildly comminuted fractures of the left greater trochanter Mild to moderate left hip osteoarthritis? 04/05/2023: * Remain nonweightbearing left lower extremity until after evaluation by Orthopedics team * Dr. Luke consulted with patient today, no surgery required, will start a diet, and PT and OT. * Medication for pain control ordered, acetaminophen, Thorp, morphine IV 2 mg * Cardiology gave clearance for possible surgical intervention in spite of her recently diagnosed atrial fibrillation which is rate controlled at this time. 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 * Patient reporting left shoulder pain with limited range of motion, will obtain two view of the left shoulder for ortho evaluation. (2) Closed fracture of greater trochanter of left femur: Qualifiers: Encounter type: initial encounter Fracture alignment: nondisplaced Qualified Code(s): S72.115A - Nondisplaced fracture of greater trochanter of left femur, initial encounter for closed fracture Code(s): S72.112A - Displaced fracture of greater trochanter of left femur, initial encounter for closed fracture Status: Acute Assessment and Plan: see above (3) Atrial fibrillation: Code(s): I48.91 - Unspecified atrial fibrillation Status: Inactive Assessment and Plan: 04/04/23: * Newly diagnosed atrial fibrillation * Cards was consulted and the following rec's are noted and appreciated, * started on Metoprolol Tartrate 12.5 mg PO BID, titrate up as needed * chads vasc score of 3. after surgery start with eliquis or xarelto for anticoagulation and d/c asa * 2D echo with doppler ordered, TSH, free T4, and magnesium level * Low risk for perioperative cardiovascular complication for ORIF, no need for ischemic evaluation prior. 04/05/23: * Continue with metoprolol tartrate 12.5 mg p.o. b.i.d. * Will need anticoagulation post orthopedic consult and possible surgery, will need aspirin therapy as well * 2D echo with Doppler studies ordered for today * Potassium 4.4, TSH 1.62, magnesium 2.2 per EMR (4) Chronic lymphocytic leukemia: Code(s): C91.10 - Chronic lymphocytic leukemia of B-cell type not having achieved remission Status: Acute Assessment and Plan: 04/05/23: * Patient has a long history of CLL but not actively receiving treatment at this time, patient states that she follows with Dr. Gibson on an outpatient basis for continued follow-up. * White blood cell count today was 78 which is down from 102.7, RBC 3.01, hemoglobin 8.8, hematocrit 30.0, abs lymphs 94.48 * Currently just monitoring at this time (5) Left shoulder pain: Code(s): M25.512 - Pain in left shoulder Status: Acute Assessment and Plan: 04/05/23: * This morning patient reporting left upper extremity pain with range of motion, patient is not able to do internal rotation, external rotation, abduction, adduct
--- NOTE | 2023-04-05 10:07 | PM.IMPN ---
Progress Note: A&P Assessment and Plan (1) Fall from ground level: Code(s): W18.30XA - Fall on same level, unspecified, initial encounter Status: Acute Assessment and Plan: 04/04/23: S/P Fall at home Nondisplaced fracture of greater trochanter of proximal left femur Orthopedics consulted NWB left lower extremity Awaiting cardiology to give clearance. Family and patient would like to talk with Dr Cosby tomorrow for a second opinion CT left hip -IMPRESSION: Minimally displaced mildly comminuted fractures of the left greater trochanter Mild to moderate left hip osteoarthritis? 04/05/2023: Remain nonweightbearing left lower extremity until after evaluation by Orthopedics team Dr. Luke consulted with patient today, no surgery required, will start a diet, and PT and OT. Medication for pain control ordered, acetaminophen, [place], morphine IV 2 mg Cardiology gave clearance for possible surgical intervention in spite of her recently diagnosed atrial fibrillation which is rate controlled at this time. 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 Patient reporting left shoulder pain with limited range of motion, will obtain two view of the left shoulder for ortho evaluation. (2) Closed fracture of greater trochanter of left femur: Qualifiers: Encounter type: initial encounter Fracture alignment: nondisplaced Qualified Code(s): S72.115A - Nondisplaced fracture of greater trochanter of left femur, initial encounter for closed fracture Code(s): S72.112A - Displaced fracture of greater trochanter of left femur, initial encounter for closed fracture Status: Acute Assessment and Plan: see above (3) Atrial fibrillation: Code(s): I48.91 - Unspecified atrial fibrillation Status: Inactive Assessment and Plan: 04/04/23: Newly diagnosed atrial fibrillation Cards was consulted and the following rec's are noted and appreciated, started on Metoprolol Tartrate 12.5 mg PO BID, titrate up as needed chads vasc score of 3. after surgery start with eliquis or xarelto for anticoagulation and d/c asa 2D echo with doppler ordered, TSH, free T4, and magnesium level Low risk for perioperative cardiovascular complication for ORIF, no need for ischemic evaluation prior. 04/05/23: Continue with metoprolol tartrate 12.5 mg p.o. b.i.d. Will need anticoagulation post orthopedic consult and possible surgery, will need aspirin therapy as well 2D echo with Doppler studies ordered for today Potassium 4.4, TSH 1.62, magnesium 2.2 per EMR (4) Chronic lymphocytic leukemia: Code(s): C91.10 - Chronic lymphocytic leukemia of B-cell type not having achieved remission Status: Acute Assessment and Plan: 04/05/23: Patient has a long history of CLL but not actively receiving treatment at this time, patient states that she follows with Dr. Gibson on an outpatient basis for continued follow-up. White blood cell count today was 78 which is down from 102.7, RBC 3.01, hemoglobin 8.8, hematocrit 30.0, abs lymphs 94.48 Currently just monitoring at this time (5) Left shoulder pain: Code(s): M25.512 - Pain in left shoulder Status: Acute Assessment and Plan: 04/05/23: This morning patient reporting left upper extremity pain with range of motion, patient is not able to do internal rotation, external rotation, abduction, adduction, she is only able to get her arm about shoulder height with without pain, she feels MD muller can test. Will get a two view of the left shoulder for ortho evaluation and treatment PT and OT are also ordered for when patient is ready Continue pain control (6) Pain and swelling of left wrist: Code(s): M25.532 - Pain in left wrist; M25.432 - Effusion, left wrist Status: A
--- NOTE | 2023-04-05 11:40 | PM.PNCARD ---
Progress Note: A&P Assessment and Plan (1) Closed fracture of greater trochanter of left femur: Qualifiers: Encounter type: initial encounter Fracture alignment: nondisplaced Qualified Code(s): S72.115A - Nondisplaced fracture of greater trochanter of left femur, initial encounter for closed fracture Code(s): S72.112A - Displaced fracture of greater trochanter of left femur, initial encounter for closed fracture Status: Acute (2) Chronic lymphocytic leukemia: Code(s): C91.10 - Chronic lymphocytic leukemia of B-cell type not having achieved remission Status: Acute (3) Atrial fibrillation: Code(s): I48.91 - Unspecified atrial fibrillation Status: Inactive Assessment and Plan: Newly recognized AFib. She has a mildly elevated heart rate. Continue metoprolol tartrate 12.5 mg p.o. b.i.d.. Can up titrate if need be. She has a chads Vasc score of 3. Anticoagulation is warranted. Will start Eliquis since she is not having surgery. Echo showed normal EF, mild , mild-moderate MR (4) Preop cardiovascular exam: Code(s): Z01.810 - Encounter for preprocedural cardiovascular examination Status: Acute Assessment and Plan: Patient is at low risk of perioperative cardiovascular complication for ORIF. No need for ischemic evaluation prior Subjective Date/time seen: 04/05/23 11:40 Interval history: Cardiology follow up for atrial fibrillation Date of service 04/05/2023: Feeling well today. Remains in atrial fibrillation, rate controlled. The decision has been made to manage her fracture non-surgically, therefore anticoagulation can be started. No palpitations, chest pain, shortness of breath. Review of Systems Review of Systems: All systems reviewed & are unremarkable except as noted in HPI and below Constitutional: Constitutional: Denies body ache(s) and Denies excessive sweating Eyes: Eyes: Denies blurry vision ENT: Reports Normal hearing present Cardiovascular: Cardiovascular: Denies chest pain and Denies palpitations Respiratory: Respiratory: Denies chest congestion and Denies hemoptysis Gastrointestinal: Gastrointestinal: Denies abdominal pain Genitourinary: Genitourinary: Denies hematuria Musculoskeletal: Musculoskeletal: Denies back pain and Reports arthralgias Integumentary/Breasts: Skin/Breast: Denies dry skin Neurologic: Reports Normal hearing present and Denies Abnormal speech present Psychiatric: Psychiatric: Denies anxiety Endocrine: Endocrine: Denies excessive sweating and Denies palpitations Hematologic/Lymphatic: Hematologic/Lymphatic: Denies easy bleeding Allergic/Immunologic: Allergic/Immunologic: Denies GI upset with certain foods Exam Narrative: Awake alert and oriented appears younger than stated age Const: General: comfortable and no acute distress HENMT: Face/Nose/Sinus: Normal nares present Mouth: Yes moist mucous membranes Eyes: General: appearance normal, both eyes and all related structures Sclera: sclerae normal Neck: Neck: supple and no JVD Chest: Other: No reproducible chest wall pain to palpation Resp: Effort & Inspection: normal respiratory effort Auscultation: clear to auscultation bilaterally Cardio: Rate: regular rate Rhythm: abnormal rhythm irregularly irregular Heart sounds: Murmur heart sound present GI: Inspection: non-distended Auscultation: normal bowel sounds Skin: General skin exam: normal color Neuro: General: gait normal Cranial nerves: Yes Normal hearing present Speech: normal speech and No Abnormal speech present Motor exam (neuro): 5/5 motor strength present throughout Extrem: General: normal to inspection Psych: Mental Status: mental status grossly normal Affect: normal affect Objective Data Vital Signs Vital Signs: Vital Signs - 24 hr 04/04/23 12:00 04/04/23 14:00 04/04/23 16:00 Temperature 36.4 C Pulse Rate 100 81 90 Respirat
--- NOTE | 2023-04-05 13:11 | PM.CNOR ---
Assessment and Plan Assessment and plan (1) Closed fracture of greater trochanter of left femur: Qualifiers: Encounter type: initial encounter Fracture alignment: nondisplaced Qualified Code(s): S72.115A - Nondisplaced fracture of greater trochanter of left femur, initial encounter for closed fracture Code(s): S72.112A - Displaced fracture of greater trochanter of left femur, initial encounter for closed fracture Status: Acute Assessment and Plan: Once the shoulder is evaluated radiographically, can likely start to mobilize using walker. She can be anticoagulated per cardiology recommendations now since surgery for this trochanteric fracture is not indicated. Will likely need placement. I recommend follow-up x-ray the left hip in one month. (2) Left shoulder pain: Qualifiers: Chronicity: acute Qualified Code(s): M25.512 - Pain in left shoulder Code(s): M25.512 - Pain in left shoulder Status: Acute Assessment and Plan: Left shoulder x-ray ordered to rule out fracture. If this is unremarkable for fracture, can start to get her mobilized with PT. History of Present Illness HPI Consult date: 04/05/23 Consult reason: fracture Chief complaint: Acute Left Greater Trochanter Proximal Femur FX Narrative: This document created with [id number] technology and is subject to vacuum kettle cook irregularities. 87-year-old female who I was asked to see by the family. She had a fall on Wednesday resulting and being brought to the emergency room. In the ER she was diagnosed with a greater trochanteric fracture by plain x-ray which was confirmed by CT scan. She also has atrial fibrillation. History of CLL. She is otherwise active, lives alone and does not regularly use a gait aid. When she fell she was addressing an issue outside of her house related to a ground hog. Review of Systems Constitutional: Constitutional: Reports no additional constitutional complaints and Denies excessive sweating Neurologic: Reports as per HPI Hematologic/Lymphatic: Hematologic/Lymphatic: Denies easy bleeding and Denies easy bruising PMFSH Past Medical History Medical History (Updated 04/05/23 @ 13:21 by Hong Cosby MD) Chronic lymphocytic leukemia Closed fracture of greater trochanter of left femur History of UTI Surgical History Surgical History H/O cataract extraction History of colonoscopy with polypectomy History of laparoscopic cholecystectomy History of total abdominal hysterectomy Family History Family History Father Family history of lung cancer Patient's father is Mother Patient's mother is Social History Social History Social History: She is and lives home alone. She has 3 children. 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 She has never smoked. She worked for [employer]. No alcohol marijuana or illicit drugs. Code status full code Smoking status: Never smoker Second hand tobacco smoke exposure: Yes Alcohol intake: never Substance use: never Lack of Transportation: No Lack of Food: Never True Current Housing: I Have Housing Concerned About Future Housing: No Difficulty Paying Gas/Electric Bills: No Difficulty Paying for Meds: No Currently Unemployed: No Education: High School Diploma/GED Difficulty w/ Childcare or Family Care: No Occupation/Education: retired Gender identity (if verbalized by the patient): Female Spiritual care concerns: No Meds Home Medications and Allergies Home Medications Medication Instructions Recorded Confirmed Type ascorbic acid (vitamin C) 100 mg 100 mg PO DAILY 03/17/23 04/02/23 History chewable tablet aspirin 81 mg
[2023-04-05] MEDS: SENNA/DOCUSATE SODIUM TABLET 1 TAB PO (20:14)
[2023-04-06] VITALS (10 sets, daily range): BP systolic 107–128; BP diastolic 52–58; PULSE 68–98; RESP 16–20; TEMP 36.3–36.5; O2SAT 91–98
[2023-04-06] MEDS: SODIUM CHLORIDE 0.9% IV 1,000 ML 75 ML IV CONT ×2 (04:58→08:27)
[2023-04-06 06:26] LABS: Hematocrit 29.1 % (37.0-47.0); Hemoglobin 8.6 g/dL (12.0-15.0); Mean Corpuscular HGB Conc 29.6 g/dl (32-36); Mean Corpuscular Hemoglobin 29.6 pg (26-34); Mean Platelet Volume 9.4 fl (7.4-10.4); Platelet Count Result 170 k/mm3 (150-375); Red Blood Count 2.91 M/mm3 (4.2-5.4); Red Cell Distribution Width 15.1 % (11.5-14.5)
[2023-04-06 06:42] LABS: Anion Gap 6 mmol/L (8-16); Blood Urea Nitrogen 16 mg/dL (7-17); Calcium 8.2 mg/dL (8.4-10.2); Carbon Dioxide 23 mmol/L (22-30); Chloride 107 mmol/L (98-107); Estimated Glomerular Filt Rate > 60; Glucose 103 mg/dL (65-110); Potassium 4.2 mmol/L (3.4-5.0); Sodium 136 mmol/L (137-145)
[2023-04-06 07:07] LABS: Band Neutrophils Percent 1 % (0-6); Eosinophils Absolute Manual 1.52 K/mm3 (0.02-0.5); Eosinophils Percent Manual 2 % (0-4); Lymphocytes Absolute Manual 60.04 K/mm3 (1.1-4.5); Neutrophils Absolute Manual 14.44 K/mm3 (1.7-7.2); Neutrophils Percent Manual 18 % (46-73); Platelet Estimate Adequate (Adequate); Schistocytes None Seen (NORMAL); Smudge Cells MODERATE; Total Cells Counted 100
[2023-04-06 07:08] LABS: Anisocytosis 1+ (NORMAL); Atypical Lymphocytes Present; Poikilocytosis 1+ (NORMAL)
--- NOTE | 2023-04-06 08:22 | PM.PNORT ---
Progress Note: A&P Assessment and Plan (1) Closed fracture of greater trochanter of left femur: Qualifiers: Encounter type: initial encounter Fracture alignment: nondisplaced Qualified Code(s): S72.115A - Nondisplaced fracture of greater trochanter of left femur, initial encounter for closed fracture Code(s): S72.112A - Displaced fracture of greater trochanter of left femur, initial encounter for closed fracture Status: Acute Assessment and Plan: Per previous plan, mobilize. Okay to use a walker. (2) Left shoulder pain: Qualifiers: Chronicity: acute Qualified Code(s): M25.512 - Pain in left shoulder Code(s): M25.512 - Pain in left shoulder Status: Acute Assessment and Plan: Therapy can work with her. Likely has some degree of rotator cuff pathology given her age and x-ray appearance. Subjective Subjective Date/Time Seen: 04/06/23 08:22 Interval history: 87-year-old female with a nonsurgical left greater trochanteric fracture. Had x-rays of the left shoulder yesterday which were negative for fracture. Did start getting mobilized in therapy although he was very slow, which is understandable. Exam Const: General: cooperative Extrem: Other: Left arm moves as a unit. Soreness about the left shoulder. In the left hip irritability noted over the greater trochanter. Overall, no real change in exam. Radiology Reports: Comments: XR shoulder LT min 2V 04/05/2023 13:30 Indication: Left shoulder pain Procedure: 4 views left shoulder Comparison: No prior studies for comparison. Findings: Osteopenia. There is polyarticular osteoarthritis. There is calcific tendinopathy of the rotator cuff. No foreign bodies. No acute fracture, subluxation or dislocation. Impression: 1: No acute fracture. Reviewed, dictated and finalized at location B. Objective Data Vital Signs Vital Signs: Vital Signs - 24 hr 04/05/23 14:00 04/05/23 14:47 04/05/23 12:00 Temperature 98.7 F Pulse Rate 99 83 Respiratory Rate 16 Blood Pressure 128/62 Pulse Oximetry 98 Oxygen Delivery Room Air 04/05/23 16:00 04/05/23 20:14 04/05/23 20:00 Temperature Pulse Rate 87 95 102 H Respiratory Rate Blood Pressure Pulse Oximetry Oxygen Delivery 04/05/23 20:00 04/05/23 22:00 04/06/23 00:00 Temperature 98.2 F Pulse Rate 98 83 Respiratory Rate 18 Blood Pressure 122/57 L Pulse Oximetry 97 Oxygen Delivery Room Air 04/06/23 04:00 04/06/23 05:35 Temperature 97.3 F L Pulse Rate 83 80 Respiratory Rate 20 Blood Pressure 128/52 L Pulse Oximetry 97 Oxygen Delivery Intake/Output Intake/Output: Intake & Output 04/03/23 04/04/23 04/05/23 04/06/23 23:59 23:59 23:59 23:59 Intake Total 2290 / 2290 3705 / 3705 2320 / 2320 0 / 0 Output Total 1150 / 1150 1800 / 1800 650 / 650 500 / 500 Balance 1140 / 1140 1905 / 1905 1670 / 1670 -500 / -500 Meds/Results Medications: Active Medications Generic Name Dose Route Start Last Admin Trade Name Freq PRN Reason Stop Dose Admin Acetaminophen 650 mg 04/03/23 01:44 Acetaminophen 325 Mg Tablet PO Q4H PRN Mild Pain (1-3) or Fever Hydrocodone Bitart/Acetaminophen 1 tab 04/02/23 20:07 Hydrocodone/Acetaminophen (*Crx) 5-325 Mg Tablet PO Q4H PRN Pain Rated 4-6 Al Hydrox/Mg Hydrox/Simethicone 30 ml 04/03/23 01:44 Mag Hydrox/Al Hydrox/Simeth 30 Ml Udc PO QID PRN Dyspepsia Ascorbic Acid 250 mg 04/03/23 09:00 04/05/23 08:05 Ascorbic Acid 250 Mg Tablet PO Not Given QAM MICHAEL Ferrous Sulfate 325 mg 04/03/23 09:00 04/05/23 08:05 Ferrous Sulfate [address] BY MOUTH Not Given DAILY MICHAEL Fish Oil 1 gm 04/03/23 09:00 04/05/23 08:05 [place] 3 Polyunsat Fatty Acids 1 Gm Cap PO Not Given QA
[2023-04-06] MEDS: polyethylene glycoL 3350 17 GM POWD.PACK PO (08:24)
[2023-04-06] MEDS: METOPROLOL TARTRATE 12.5 MG TABLET PO ×2 (08:25→20:50)
[2023-04-06] MEDS: OMEGA 3 POLYUNSAT FATTY ACIDS 1 GM CAP PO (08:26)
[2023-04-06] MEDS: FERROUS SULFATE 325 MG TABLET DR BY MOUTH (08:26)
[2023-04-06] MEDS: MULTIVITAMINS /C LUTEIN (CENTRUM SILVER) TABLET *BKC 1 TAB PO (08:26)
[2023-04-06] MEDS: ASCORBIC ACID 250 MG TABLET PO (08:27)
--- NOTE | 2023-04-06 09:03 | PM.PNCARD ---
Progress Note: A&P Assessment and Plan (1) Closed fracture of greater trochanter of left femur: Qualifiers: Encounter type: initial encounter Fracture alignment: nondisplaced Qualified Code(s): S72.115A - Nondisplaced fracture of greater trochanter of left femur, initial encounter for closed fracture Code(s): S72.112A - Displaced fracture of greater trochanter of left femur, initial encounter for closed fracture Status: Acute (2) Chronic lymphocytic leukemia: Code(s): C91.10 - Chronic lymphocytic leukemia of B-cell type not having achieved remission Status: Acute (3) Atrial fibrillation: Code(s): I48.91 - Unspecified atrial fibrillation Status: Inactive Assessment and Plan: Newly recognized AFib. She has a mildly elevated heart rate. Continue metoprolol tartrate 12.5 mg p.o. b.i.d.. Can up titrate if need be. She has a chads Vasc score of 3. Anticoagulation is warranted. Will start Eliquis 2.5mg b.i.d (dose adjusted for age, weight) Echo showed normal EF, mild , mild-moderate MR Cardiology will sign off. Please call with questions (4) Preop cardiovascular exam: Code(s): Z01.810 - Encounter for preprocedural cardiovascular examination Status: Acute Assessment and Plan: Patient is at low risk of perioperative cardiovascular complication for ORIF. No need for ischemic evaluation prior Subjective Date/time seen: 04/06/23 09:03 Interval history: Cardiology follow up for atrial fibrillation Date of service 04/05/2023: Feeling well today. Remains in atrial fibrillation, rate controlled. The decision has been made to manage her fracture non-surgically, therefore anticoagulation can be started. No palpitations, chest pain, shortness of breath. Date of service 04/06/2023: Feeling tired this morning but generally doing well. She doesn't have any specific complaints this morning. Review of Systems Review of Systems: All systems reviewed & are unremarkable except as noted in HPI and below Constitutional: Constitutional: Denies body ache(s) and Denies excessive sweating Eyes: Eyes: Denies blurry vision ENT: Reports Normal hearing present Cardiovascular: Cardiovascular: Denies chest pain and Denies palpitations Respiratory: Respiratory: Denies chest congestion and Denies hemoptysis Gastrointestinal: Gastrointestinal: Denies abdominal pain Genitourinary: Genitourinary: Denies hematuria Musculoskeletal: Musculoskeletal: Denies back pain and Reports arthralgias Integumentary/Breasts: Skin/Breast: Denies dry skin Neurologic: Reports Normal hearing present and Denies Abnormal speech present Psychiatric: Psychiatric: Denies anxiety Endocrine: Endocrine: Denies excessive sweating and Denies palpitations Hematologic/Lymphatic: Hematologic/Lymphatic: Denies easy bleeding Allergic/Immunologic: Allergic/Immunologic: Denies GI upset with certain foods Exam Narrative: Awake alert and oriented appears younger than stated age Const: General: comfortable and no acute distress HENMT: Face/Nose/Sinus: Normal nares present Mouth: Yes moist mucous membranes Eyes: General: appearance normal, both eyes and all related structures Sclera: sclerae normal Neck: Neck: supple and no JVD Chest: Other: No reproducible chest wall pain to palpation Resp: Effort & Inspection: normal respiratory effort Auscultation: clear to auscultation bilaterally Cardio: Rate: regular rate Rhythm: abnormal rhythm irregularly irregular Heart sounds: Murmur heart sound present Other: 1/6 basal systolic ejection murmur GI: Inspection: non-distended Auscultation: normal bowel sounds Skin: General skin exam: normal color Neuro: General: gait normal Cranial nerves: Yes Normal hearing present Speech: normal speech and No Abnormal speech present Motor exam (neuro): 5/5 motor strength present throughout Extrem: General: normal to in
--- NOTE | 2023-04-06 10:13 | P.PNIM_ITS ---
Progress Note: A&P Assessment and Plan (1) Fall from ground level: Code(s): W18.30XA - Fall on same level, unspecified, initial encounter Status: Acute Assessment and Plan: 04/04/23: * S/P Fall at home * Nondisplaced fracture of greater trochanter of proximal left femur * Orthopedics consulted * NWB left lower extremity * Awaiting cardiology to give clearance. * Family and patient would like to talk with Dr Cosby tomorrow for a second opinion * CT left hip -IMPRESSION: Minimally displaced mildly comminuted fractures of the left greater trochanter Mild to moderate left hip osteoarthritis? 04/05/2023: * Remain nonweightbearing left lower extremity until after evaluation by Orthopedics team * Dr. Luke consulted with patient today, no surgery required, will start a diet, and PT and OT. * Medication for pain control ordered, acetaminophen, [place], morphine IV 2 mg * Cardiology gave clearance for possible surgical intervention in spite of her recently diagnosed atrial fibrillation which is rate controlled at this time. 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 * Patient reporting left shoulder pain with limited range of motion, will obtain two view of the left shoulder for ortho evaluation. 04/06/23: * Continue with PT and OT. * Touch base with Case Management about discharge needs, will keep patient today and have her work with therapy and meet with Case Management for possible SNF placement. * Patient denies pain at this time. * Left shoulder x-ray revealed Osteopenia. There is polyarticular osteoarthritis. There is calcific tendinopathy of the rotator cuff. No foreign bodies. No acute fracture, subluxation or dislocation, no acute fracture. (2) Closed fracture of greater trochanter of left femur: Qualifiers: Encounter type: initial encounter Fracture alignment: nondisplaced Qualified Code(s): S72.115A - Nondisplaced fracture of greater trochanter of left femur, initial encounter for closed fracture Code(s): S72.112A - Displaced fracture of greater trochanter of left femur, initial encounter for closed fracture Status: Acute Assessment and Plan: see above (3) Atrial fibrillation: Code(s): I48.91 - Unspecified atrial fibrillation Status: Inactive Assessment and Plan: 04/04/23: * Newly diagnosed atrial fibrillation * Cards was consulted and the following rec's are noted and appreciated, * started on Metoprolol Tartrate 12.5 mg PO BID, titrate up as needed * chads vasc score of 3. after surgery start with eliquis or xarelto for anticoagulation and d/c asa * 2D echo with doppler ordered, TSH, free T4, and magnesium level * Low risk for perioperative cardiovascular complication for ORIF, no need for ischemic evaluation prior. 04/05/23: * Continue with metoprolol tartrate 12.5 mg p.o. b.i.d. * Will need anticoagulation post orthopedic consult and possible surgery, will need aspirin therapy as well * 2D echo with Doppler studies ordered for today * Potassium 4.4, TSH 1.62, magnesium 2.2 per EMR 04/06/23: * Patient started on Eliquis 2.5 mg p.o. b.i.d. * Vital signs stable * Echo that was performed yesterday show normal RV and LV function with an EF of 50-55%, patient is in A fib however rate controlled. Of note there was mild aortic valve stenosis, moderate tricuspid valve regurgitation, and mild pulmonary hypertension with an estimated pulmonary arterial systolic pressure
--- NOTE | 2023-04-06 10:13 | PM.IMPN ---
Progress Note: A&P Assessment and Plan (1) Fall from ground level: Code(s): W18.30XA - Fall on same level, unspecified, initial encounter Status: Acute Assessment and Plan: 04/04/23: S/P Fall at home Nondisplaced fracture of greater trochanter of proximal left femur Orthopedics consulted NWB left lower extremity Awaiting cardiology to give clearance. Family and patient would like to talk with Dr Cosby tomorrow for a second opinion CT left hip -IMPRESSION: Minimally displaced mildly comminuted fractures of the left greater trochanter Mild to moderate left hip osteoarthritis? 04/05/2023: Remain nonweightbearing left lower extremity until after evaluation by Orthopedics team Dr. Luke consulted with patient today, no surgery required, will start a diet, and PT and OT. Medication for pain control ordered, acetaminophen, [place], morphine IV 2 mg Cardiology gave clearance for possible surgical intervention in spite of her recently diagnosed atrial fibrillation which is rate controlled at this time. 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 Patient reporting left shoulder pain with limited range of motion, will obtain two view of the left shoulder for ortho evaluation. 04/06/23: Continue with PT and OT. Touch base with Case Management about discharge needs, will keep patient today and have her work with therapy and meet with Case Management for possible SNF placement. Patient denies pain at this time. Left shoulder x-ray revealed Osteopenia. There is polyarticular osteoarthritis. There is calcific tendinopathy of the rotator cuff. No foreign bodies. No acute fracture, subluxation or dislocation, no acute fracture. (2) Closed fracture of greater trochanter of left femur: Qualifiers: Encounter type: initial encounter Fracture alignment: nondisplaced Qualified Code(s): S72.115A - Nondisplaced fracture of greater trochanter of left femur, initial encounter for closed fracture Code(s): S72.112A - Displaced fracture of greater trochanter of left femur, initial encounter for closed fracture Status: Acute Assessment and Plan: see above (3) Atrial fibrillation: Code(s): I48.91 - Unspecified atrial fibrillation Status: Inactive Assessment and Plan: 04/04/23: Newly diagnosed atrial fibrillation Cards was consulted and the following rec's are noted and appreciated, started on Metoprolol Tartrate 12.5 mg PO BID, titrate up as needed chads vasc score of 3. after surgery start with eliquis or xarelto for anticoagulation and d/c asa 2D echo with doppler ordered, TSH, free T4, and magnesium level Low risk for perioperative cardiovascular complication for ORIF, no need for ischemic evaluation prior. 04/05/23: Continue with metoprolol tartrate 12.5 mg p.o. b.i.d. Will need anticoagulation post orthopedic consult and possible surgery, will need aspirin therapy as well 2D echo with Doppler studies ordered for today Potassium 4.4, TSH 1.62, magnesium 2.2 per EMR 04/06/23: Patient started on Eliquis 2.5 mg p.o. b.i.d. Vital signs stable Echo that was performed yesterday show normal RV and LV function with an EF of 50-55%, patient is in A fib however rate controlled. Of note there was mild aortic valve stenosis, moderate tricuspid valve regurgitation, and mild pulmonary hypertension with an estimated pulmonary arterial systolic pressure 41mmHg, elevated right atrial pressure of 15mmHg Continue with Metoprolol for rate control. (4) Chronic lymphocytic leukemia: Code(s): C91.10 - Chronic lymphocytic leukemia of B-cell type not having achieved remission Status: Acute Assessment and Plan: 04/05/23: Patient has a long history of CLL but not actively receiving treatment at this time, pat
[2023-04-06] MEDS: APIXABAN 2.5 MG TABLET PO ×2 (10:15→20:50)
[2023-04-06] MEDS: SENNA/DOCUSATE SODIUM TABLET 1 TAB PO (20:50)
[2023-04-07] VITALS (7 sets, daily range): BP systolic 124–126; BP diastolic 48–64; PULSE 83–100; RESP 14–20; TEMP 35.9–36.7; O2SAT 98–99
[2023-04-07 06:51] LABS: Hematocrit 29.1 % (37.0-47.0); Hemoglobin 8.7 g/dL (12.0-15.0); Mean Corpuscular HGB Conc 29.9 g/dl (32-36); Mean Corpuscular Hemoglobin 29.5 pg (26-34); Mean Corpuscular Volume 98.6 fl (80-100); Mean Platelet Volume 9.7 fl (7.4-10.4); Platelet Count Result 186 k/mm3 (150-375); Red Blood Count 2.95 M/mm3 (4.2-5.4); Red Cell Distribution Width 15.2 % (11.5-14.5)
[2023-04-07 06:54] LABS: White Blood Count 70.4 K/mm3 (4.5-10.0)
[2023-04-07 07:05] LABS: Anion Gap 6 mmol/L (8-16); Blood Urea Nitrogen 14 mg/dL (7-17); Calcium 8.3 mg/dL (8.4-10.2); Carbon Dioxide 23 mmol/L (22-30); Chloride 106 mmol/L (98-107); Estimated Glomerular Filt Rate > 60; Glucose 117 mg/dL (65-110); Sodium 135 mmol/L (137-145)
[2023-04-07 07:13] LABS: Lymphocytes Absolute Manual 58.43 K/mm3 (1.1-4.5); Lymphocytes Percent Manual 83 % (18-44); Monocytes Percent Manual 2 % (3-9); Neutrophils Percent Manual 15 % (46-73); Platelet Estimate Adequate (Adequate); Smudge Cells MANY; Total Cells Counted 100
[2023-04-07 07:14] LABS: Anisocytosis 1+ (NORMAL); Schistocytes None Seen (NORMAL)
[2023-04-07] MEDS: MULTIVITAMINS /C LUTEIN (CENTRUM SILVER) TABLET *BKC 1 TAB PO (09:42)
[2023-04-07] MEDS: FERROUS SULFATE 325 MG TABLET DR BY MOUTH (09:42)
[2023-04-07] MEDS: OMEGA 3 POLYUNSAT FATTY ACIDS 1 GM CAP PO (09:42)
[2023-04-07] MEDS: APIXABAN 2.5 MG TABLET PO (09:42)
[2023-04-07] MEDS: polyethylene glycoL 3350 17 GM POWD.PACK PO (09:42)
[2023-04-07] MEDS: METOPROLOL TARTRATE 12.5 MG TABLET PO (09:43)
[2023-04-07] MEDS: ASCORBIC ACID 250 MG TABLET PO (09:43)
--- NOTE | 2023-04-07 12:32 | PM.DS ---
DS: Admitting Diagnosis Discharge Date 04/07/23 Admitting Diagnosis Closed fracture of the greater trochanter of left femur. DS: Discharge Diagnosis Discharge Diagnosis (1) Fall from ground level: Code(s): W18.30XA - Fall on same level, unspecified, initial encounter Status: Acute (2) Closed fracture of greater trochanter of left femur: Qualifiers: Encounter type: initial encounter Fracture alignment: nondisplaced Qualified Code(s): S72.115A - Nondisplaced fracture of greater trochanter of left femur, initial encounter for closed fracture Code(s): S72.112A - Displaced fracture of greater trochanter of left femur, initial encounter for closed fracture Status: Acute (3) Atrial fibrillation: Code(s): I48.91 - Unspecified atrial fibrillation Status: Inactive (4) Chronic lymphocytic leukemia: Code(s): C91.10 - Chronic lymphocytic leukemia of B-cell type not having achieved remission Status: Acute (5) Left shoulder pain: Qualifiers: Chronicity: acute Qualified Code(s): M25.512 - Pain in left shoulder Code(s): M25.512 - Pain in left shoulder Status: Acute (6) Pain and swelling of left wrist: Code(s): M25.532 - Pain in left wrist; M25.432 - Effusion, left wrist Status: Acute DS: Summary Hospital Course Hospital Course: This is an 87-year-old lady the presents to the ED on 04/02/2023 after having a ground level fall at home. Patient had fallen and landed with her arms out forward and hitting her left hip. X-rays of the hip and pelvis revealing a left greater trochanteric fracture. Orthopedics consulted. ortho did not recommend surgery for this particular fracture. PT and OT ordered. Patient did have some pain in her left shoulder post fall but shoulder x-ray ruled out acute fracture. It was recommended that patient be placed into SNF for rehab. Patient ended up going into AFib on 04/04/2023 with a mildly elevated heart rate and she was started on low-dose metoprolol tartrate 12.5 b.i.d. as well as Eliquis 2.5 mg b.i.d. Patient had echocardiogram done with normal EF, mild and moderate MR. Labs and vital signs are stable and she is medically clear for discharge at this time. Time Spent with Patient Time attestation: Total time spent providing and/or coordinating discharge services: Exam Narrative: GENERAL: Comfortable, no acute distress HENMT: moist mucous membranes EYES: EOM intact b/l NECK: no lymphadenopathy RESPIRATORY: clear to auscultation CARDIO: RRR GI: soft, nontender, bowel sounds present SKIN: no rashes EXTREMITIES: no edema, redness or tenderness DS: Data Data Completed and Pending Labs on day of discharge: Labs from last 24 hours 04/07/23 06:04 WBC 70.4 H* RBC 2.95 L Hgb 8.7 L Hct 29.1 L MCV 98.6 MCH 29.5 MCHC 29.9 L RDW 15.2 H Plt Count 186 MPV 9.7 Immature Gran % (Auto) Not Reportable Neut % (Auto) Not Reportable Lymph % (Auto) Not Reportable [place] % (Auto) Not Reportable Eos % (Auto) Not Reportable Baso % (Auto) Not Reportable Lymph # (Auto) Not Reportable [place] # (Auto) Not Reportable Eos # (Auto) Not Reportable Baso # (Auto) Not Reportable Abs Immat Gran (auto) Not Reportable Absolute Neuts (auto) Not Reportable Absolute Nucleated RBC Not Reportable Total Counted 100 Neutrophils % (Manual) 15 L Lymphocytes % (Manual) 83 H Monocytes % (Manual) 2 L Nucleated RBC % Not Reportable Abs Lymphs (Manual) 58.43 H Abs Monocytes (Manual) 1.40 H Smudge Cells Many Platelet Estimate Adequate Anisocytosis 1+ Schistocytes None seen Sodium 135 L Potassium 4.0 Chloride 106 Carbon Dioxide 23 Anion Gap 6 L BUN 14 Creatinine 0.80 Estim Creat Clear Calc Not Reportable Estimated GFR > 60 Glucose 117 H Calcium 8.3 L Discharge Plan Discharge Attending physician on discharge: Antony Barron Consulting providers: Rudy Morelos
[2023-04-07 14:34] LABS: SARS-CoV-2 RNA PCR Negative (Negative)
== END 2023-04-07 17:15 | DRG 536 ==
LOC: ANHED 19:24 → ANH3MEDSUR 04-03 07:25
PROVIDERS: Internal Medicine Cardiovascular Disease; Admitting Provider Family Medicine; Emergency Provider Nurse Practitioner; PCP Family Medicine; Visit Provider Internal Medicine Critical Care Medicine
DX: S72.115A Nondisplaced fracture of greater trochanter of left femur, initial encounter for closed fracture (principal); C91.10 Chronic lymphocytic leukemia of B-cell type not having achieved remission; N32.1 Vesicointestinal fistula; N82.3 Fistula of vagina to large intestine; I48.91 Unspecified atrial fibrillation; D50.9 Iron deficiency anemia, unspecified; M25.512 Pain in left shoulder; M25.532 Pain in left wrist; W19.XXXA Unspecified fall, initial encounter; Z20.822 Contact with and (suspected) exposure to COVID-19; Z79.82 Long term (current) use of aspirin; Z86.010 Personal history of colon polyps; Z87.81 Personal history of (healed) traumatic fracture
CPT/HCPCS: 36415; 71046; 73030; 73110; 73502; 73552; 73700; 80048; 80053; 83735; 84100; 84443; 85025; 85610; 87635; 93005; 93306; 96374; 96375; 97110; 97161; 97166; 97530; 97535; 99285; A9270; J2405; J3010; J7030

== ENCOUNTER 2023-07-21 11:16 | Outpatient (CLI) | payer MEDICARE, SELFPAY ==
[2023-07-21 11:31] LABS: Eosinophils Absolute Auto 0.2 K/mm3 (0-0.3); Eosinophils Percent Auto 0.1 % (0-4.4); Hematocrit 38.5 % (37.0-47.0); Hemoglobin 11.6 g/dL (12.0-15.0); Immature Granulocyte Absolute 0.27 K/mm3 (0.00-0.031); Immature Granulocyte Percent A 0.2 % (0-0.5); Lymphocytes Absolute Auto 120.14 K/mm3 (0.9-3.2); Mean Corpuscular HGB Conc 30.1 g/dl (32-36); Mean Corpuscular Hemoglobin 29.5 pg (26-34); Mean Platelet Volume 8.9 fl (7.4-10.4); Monocytes Absolute Auto 1.8 K/mm3 (0.1-0.6); Monocytes Percent Auto 1.4 % (2.6-8.5); Neutrophils Absolute Auto 5.4 K/mm3 (1.3-6.7); Neutrophils Percent Auto 4.3 % (45.5-73.1); Platelet Count Result 195 k/mm3 (150-375); Red Blood Count 3.93 M/mm3 (4.2-5.4); Red Cell Distribution Width 15.3 % (11.5-14.5)
[2023-07-21 11:33] LABS: White Blood Count 127.8 K/mm3 (4.5-10.0)
[2023-07-21 11:39] LABS: Atypical Lymphocytes Present; Platelet Estimate Adequate (Adequate); Schistocytes None Seen (NORMAL); Smudge Cells PRESENT
[2023-07-21 12:25] LABS: Alanine Aminotransferase 14 U/L (6-35); Albumin Level 4.3 g/dL (3.5-5.1); Alkaline Phosphatase 66 U/L (38-126); Anion Gap 8 mmol/L (8-16); Aspartate Amino Transferase 27 U/L (14-36); Bilirubin,Total 1.3 mg/dL (0.2-1.3); Blood Urea Nitrogen 21 mg/dL (7-17); Calcium 9.5 mg/dL (8.4-10.2); Carbon Dioxide 25 mmol/L (22-30); Chloride 105 mmol/L (98-107); Estimated Glomerular Filt Rate 52; Glucose 115 mg/dL (65-110); Potassium 4.8 mmol/L (3.4-5.0); Sodium 138 mmol/L (137-145)
[2023-07-21 12:39] LABS: Iron 67 ug/dL (37-170)
[2023-07-21 12:53] LABS: Percent Iron Saturation 22 % (20-50)
[2023-07-21 13:33] LABS: Folic Acid > 20.0 ng/mL (2.76->20)
== END 2023-07-21 11:17 | disposition home or self-care (01) ==
LOC: ANHLAB 11:18
PROVIDERS: PCP Internal Medicine; Visit Provider Internal Medicine Hematology & Oncology
DX: D64.9 Anemia, unspecified (principal)
CPT/HCPCS: 36415; 80053; 82607; 82728; 82746; 83540; 83550; 85025

== ENCOUNTER 2023-10-13 09:08 | Outpatient (CLI) | payer MEDICARE, SELFPAY ==
[2023-10-13 09:22] LABS: Eosinophils Absolute Auto 0.1 K/mm3 (0-0.3); Eosinophils Percent Auto 0.1 % (0-4.4); Hematocrit 36.6 % (37.0-47.0); Hemoglobin 10.9 g/dL (12.0-15.0); Immature Granulocyte Absolute 0.21 K/mm3 (0.00-0.031); Immature Granulocyte Percent A 0.2 % (0-0.5); Lymphocytes Absolute Auto 124.77 K/mm3 (0.9-3.2); Lymphocytes Percent Auto 95.4 % (18.3-44.2); Mean Corpuscular HGB Conc 29.8 g/dl (32-36); Mean Corpuscular Hemoglobin 30.4 pg (26-34); Mean Corpuscular Volume 102.2 fl (80-100); Mean Platelet Volume 9.2 fl (7.4-10.4); Monocytes Absolute Auto 1.1 K/mm3 (0.1-0.6); Monocytes Percent Auto 0.8 % (2.6-8.5); Neutrophils Absolute Auto 4.6 K/mm3 (1.3-6.7); Neutrophils Percent Auto 3.5 % (45.5-73.1); Platelet Count Result 192 k/mm3 (150-375); Red Blood Count 3.58 M/mm3 (4.2-5.4); Red Cell Distribution Width 14.7 % (11.5-14.5)
[2023-10-13 09:27] LABS: White Blood Count 130.8 K/mm3 (4.5-10.0)
[2023-10-13 09:30] LABS: Anisocytosis 1+; Atypical Lymphocytes Present; Hypochromasia 1+; Microcytosis 1+ (NORMAL); Platelet Estimate Adequate (Adequate); Schistocytes None Seen; Smudge Cells PRESENT
[2023-10-13 10:06] LABS: Alanine Aminotransferase 12 U/L (6-35); Albumin Level 4.4 g/dL (3.5-5.1); Alkaline Phosphatase 57 U/L (38-126); Anion Gap 9 mmol/L (4-12); Aspartate Amino Transferase 22 U/L (14-36); Bilirubin,Total 1.4 mg/dL (0.2-1.3); Blood Urea Nitrogen 18 mg/dL (7-17); Calcium 9.7 mg/dL (8.4-10.2); Carbon Dioxide 23 mmol/L (22-30); Chloride 109 mmol/L (98-107); Estimated Glomerular Filt Rate 47; Glucose 116 mg/dL (65-110); Potassium 4.1 mmol/L (3.4-5.0); Sodium 141 mmol/L (137-145)
[2023-10-13 11:12] LABS: Folic Acid > 20.0 ng/mL (2.76->20)
[2023-10-13 12:20] LABS: Iron 68 ug/dL (37-170); Percent Iron Saturation 24 % (20-50)
== END 2023-10-13 09:09 | disposition home or self-care (01) ==
LOC: ANHLAB 09:09
PROVIDERS: PCP Internal Medicine; Visit Provider Internal Medicine Hematology & Oncology
DX: D64.9 Anemia, unspecified (principal)
CPT/HCPCS: 36415; 80053; 82607; 82728; 82746; 83540; 83550; 85025

== ENCOUNTER 2023-10-29 16:03 | Inpatient (IN) | payer MEDICARE, SELFPAY ==
--- NOTE | ~2023-10-29 | CT_ITS ---
EXAMINATION: CT abdomen pelvis w con DATE: 10/29/2023 21:17 INDICATION: Left lower quadrant abdominal pain. TECHNIQUE: Computed tomography (CT) of the abdomen and pelvis was performed with 100 mL Omnipaque 350 intravenous contrast. Automated exposure control and iterative reconstruction technique were employe d. The dose-length product was 265.48 mGy-cm. COMPARISON: CT abdomen and pelvis 07/31/2022 FINDINGS: The visualized portions of the lung bases demonstrate mild chronic interstitial lung diseas e. No pleural effusion. Cardiomegaly is noted. There are coronary artery calcifications. No pericardi al effusion. There are calcifications of the aortic valve. The liver is normal. There is a 5 mm cyst in the spleen. There are changes of cholecystectomy. The pancreas and adrenal glands are normal. Ther e is cortical thinning of right kidney. There are cysts in left kidney measuring up to 7 mm. There is mild left hydronephrosis with urothelial thickening and enhancement. There is a 6 mm stone in left u reteropelvic junction. There is diverticulosis of the colon without evidence of diverticulitis. The a ppendix is normal. Aortic atherosclerosis is noted. There are no pathologically enlarged lymph nodes. There is no free intraperitoneal fluid. There is lumbar scoliosis and severe spondylosis. IMPRESSION: 1. 6 mm stone in left ureteropelvic junction with mild left hydronephrosis and left-sided pyelitis. Reviewed, dictated and finalized at location E.
--- NOTE | ~2023-10-29 | XR_ITS ---
EXAMINATION: XR abdomen/kub 1V DATE: 10/31/2023 08:29 INDICATION: Left ureteral stone. TECHNIQUE: A supine view of the abdomen on 2 radiographs was obtained. COMPARISON: Abdomen radiograph 10/29/2023 FINDINGS: There are no dilated loops of bowel. Surgical clips in the right upper quadrant are likely from cholecystectomy. There is a left internal ureteral stent in expected position. There is a 5 mm s tone in left kidney. There is a phlebolith in left pelvis. IMPRESSION: 1. 5 mm stone in left kidney. 2. Left internal ureteral stent in expected position. Reviewed, dictated and finalized at location A.
--- NOTE | ~2023-10-29 | XR_ITS ---
EXAMINATION: XR retrograde pyelo w/stent LT DATE: 10/30/2023 08:23 INDICATION: Left retrograde pyelogram and stent placement TECHNIQUE: 7 fluoroscopic images of the abdomen and pelvis were obtained during procedure performed prasanna Braun. Radiologist was not present for the imaging or procedure. The amount of fluoroscopy t lesley used during this procedure was 0.1 minutes. COMPARISON: CT dated 10/29/2023 FINDINGS: Picture Engraver images demonstrate a small amount of residual excreted contrast likely from contrast enhanced C T from one day prior and the mildly dilated left renal pelvis and in the bladder. Cholecystectomy cli ps in right upper quadrant. Subsequent images demonstrate cannulation of the left ureter and retrogra de contrast injection which opacifies the entire ureter extends into the left renal collecting system . There appears be a potential small filling defect at the uterine pelvic junction likely representin g the stone seen on prior CT. A wire subsequently placed into the left renal collecting system and vicente bsequently a left intraureteral stent with loops formed in the left renal pelvis. The filling defect is not visualized on the final 2 images, unclear whether the stone was extracted or reflux back into the left renal collecting system. Correlate with procedure note for further detail. IMPRESSION: 1. Fluoroscopy utilized during left retrograde pyelogram and internal ureteral stent placement with p roximal loop formed in the left renal pelvis. See procedure note for further detail. Reviewed, dictated and finalized at location A. IMPRESSION: 1. Fluoroscopy utilized during left retrograde pyelogram and internal ureteral stent placement with proximal loop formed in the left renal pelvis. See procedu re note for further detail.
--- NOTE | ~2023-10-29 | XR_ITS ---
EXAMINATION: XR abdomen/kub 1V DATE: 10/29/2023 22:13 INDICATION: Kidney stone. TECHNIQUE: A supine view of the abdomen was obtained. COMPARISON: CT abdomen and pelvis 10/29/23 FINDINGS: There are no dilated loops of bowel. There is contrast in the renal collecting system. Ther e is mild left hydronephrosis. Surgical clips in the right upper quadrant are likely from cholecystec aaron. IMPRESSION: 1. Mild left hydronephrosis. Reviewed, dictated and finalized at location E.
[2023-10-29 16:15] VITALS: BP 124/72; PULSE 91; RESP 20; TEMP 36.4; O2SAT 98
[2023-10-29 17:18] LABS: Hematocrit 35.2 % (37.0-47.0); Hemoglobin 10.7 g/dL (12.0-15.0); Mean Corpuscular HGB Conc 30.4 g/dl (32-36); Mean Corpuscular Hemoglobin 30.5 pg (26-34); Mean Corpuscular Volume 100.3 fl (80-100); Mean Platelet Volume 9.1 fl (7.4-10.4); Platelet Count Result 191 k/mm3 (150-375); Red Blood Count 3.51 M/mm3 (4.2-5.4); Red Cell Distribution Width 14.7 % (11.5-14.5)
[2023-10-29 17:24] LABS: White Blood Count 110.4 K/mm3 (4.5-10.0)
[2023-10-29 17:29] LABS: Alanine Aminotransferase 11 U/L (6-35); Albumin Level 4.1 g/dL (3.5-5.1); Alkaline Phosphatase 63 U/L (38-126); Anion Gap 8 mmol/L (4-12); Aspartate Amino Transferase 25 U/L (14-36); Bilirubin,Total 1.9 mg/dL (0.2-1.3); Blood Urea Nitrogen 25 mg/dL (7-17); Calcium 9.7 mg/dL (8.4-10.2); Carbon Dioxide 22 mmol/L (22-30); Chloride 106 mmol/L (98-107); Estimated Glomerular Filt Rate 47; Glucose 115 mg/dL (65-110); Lipase 75 U/L (23-300); Potassium 4.4 mmol/L (3.4-5.0); Sodium 136 mmol/L (137-145)
[2023-10-29 17:45] LABS: Lymphocytes Absolute Manual 98.25 K/mm3 (1.1-4.5); Monocytes Percent Manual 1 % (3-9); Neutrophils Percent Manual 10 % (46-73); Platelet Estimate Adequate (Adequate); Total Cells Counted 100
[2023-10-29 17:46] LABS: Anisocytosis 1+; Hypochromasia 1+; Microcytosis 1+ (NORMAL); Schistocytes None Seen; Smudge Cells MANY
[2023-10-29 18:44] VITALS: BP 113/76; PULSE 87; RESP 18; O2SAT 98
[2023-10-29 19:03] VITALS: BP 135/79; PULSE 97; RESP 20; O2SAT 99
--- NOTE | 2023-10-29 19:24 | ED.GENADULT ---
HPI - General Adult General Chief complaint: Abdominal Pain Stated complaint: left abd pain, hx diverticulitis Time Seen by Provider: 10/29/23 18:59 History of Present Illness HPI narrative: patient is a 88-year-old female who presents emergency department with chief complaint of abdominal pain patient reports that she started having discomfort in the left lower quadrant reports that she has prior history of diverticulitis had a fistula and has had a percutaneous drain in past. Patient reports that she has had no fever reports that she did have some chills yesterday patient denies vomiting and denies diarrhea Related Data Home Medications Medication Instructions Recorded Confirmed ascorbic acid (vitamin C) 100 mg 100 mg PO DAILY 03/17/23 06/30/23 chewable tablet ferrous sulfate 325 mg (65 mg 325 mg PO DAILY 03/17/23 06/30/23 iron) tablet (iron) omega-3 150 ex-vhy-ccq-fish oil 1 cap PO DAILY 03/17/23 06/30/23 500 mg-D3 200 unit capsule,delayed rel ([place]-3 Plus Vitamin D3) dfmsakye-hppr-yqjcn acid 240 1 tablet PO DAILY 04/02/23 06/30/23 mcg-vit K 120 sbh-rnaafn-rhzv 293 tablet (Alive Women's 50 Plus (fruit-veg blend)) Allergies Allergy/AdvReac Type Severity Reaction Status Date / Time tetracycline Allergy Unknown Unknown Verified 06/30/23 09:55 Review of Systems Review of Systems: A 10 system review of systems was completed on the patient and is negative except for what is stated in the HPI. Nursing and ancillary documentation was reviewed. [facility] Past Medical History Medical History Chronic lymphocytic leukemia Closed fracture of greater trochanter of left femur History of UTI Surgical History Surgical History H/O cataract extraction History of colonoscopy with polypectomy History of laparoscopic cholecystectomy History of total abdominal hysterectomy Family History Family History Father Family history of lung cancer Patient's father is Mother Patient's mother is Social History Social History Social History: She is and lives home alone. She has 3 children. Her son and daughter that live nearby [facility]. She has never smoked. She worked for [employer]. No alcohol marijuana or illicit drugs. Code status full code Smoking status: Never smoker Second hand tobacco smoke exposure: Yes Alcohol intake: never Substance use: never Lack of Transportation: No Lack of Food: Never True Current Housing: I Have Housing Concerned About Future Housing: No Difficulty Paying Gas/Electric Bills: No Difficulty Paying for Meds: No Currently Unemployed: No Education: High School Diploma/GED Difficulty w/ Childcare or Family Care: No Occupation/Education: retired Gender identity (if verbalized by the patient): Female Spiritual care concerns: No Exam Narrative: GENERAL: Well-appearing, well-nourished, and in no acute distress. HEAD: Normocephalic, atraumatic. EYES: PERRLA and EOMI. ENT: Nares clear, no rhinorrhea or epistaxis. Mucous membranes moist. NECK: Supple. CHEST: Clear to auscultation. No respiratory distress. HEART: Regular rate and rhythm. No murmur heard. Normal peripheral pulses. ABDOMEN: Soft, tenderness to palpation left lower quadrant, nondistended, normal active bowel sounds. EXTREMITIES: Normal range of motion. No edema. SKIN: Warm, dry, no rash. NEURO: No focal deficits. Alert and oriented x3. PSYCH: Normal mood and affect. Course Vital Signs Vital signs: Vital Signs Temperature 36.4 C 10/29/23 16:15 Pulse Rate 91 10/29/23 16:15 Respiratory Rate 20 10/29/23 16
[2023-10-29 20:35] LABS: Appearance Urine Turbid (Clear); Bacteria Urine 4+ /hpf; Bilirubin Urine Negative (Negative); Blood Urine 3+ (Negative); Budding Yeast Urine Present /hpf; Color Urine Yellow (Yellow); Glucose Urine UA Negative (Negative); Ketones Urine Trace mg/dL (Negative); Leukocyte Esterase Ur 3+ LEU/UL (Negative); Mucus Urine Present /lpf; Need Manual Microscopic Reviewed; Nitrate Urine Negative (Negative); Protein Urine 1+ mg/dL (Negative); RBC Urine 21-50 /hpf (0-2); Specific Grav Ur 1.015 (1.001-1.035); Squamous Epithelial Cell Urine Occasional /hpf (Few); WBC Urine >100 /hpf (0-3); pH Urine 5.5 (5.0-9.0)
[2023-10-29 20:38] LABS: Add Urine Microscopic? YES
--- NOTE | 2023-10-29 22:00 | PC.NURSE ---
Phlebotomy called to draw pt blood cultures.
--- NOTE | 2023-10-29 22:02 | PC.NURSE ---
talked to phlebotomy at [phone] to come get blood from pt.
--- NOTE | 2023-10-29 22:06 | PM.IMHP ---
H&P: HPI History of Present Illness Date/Time: 10/29/23 22:06 Chief Complaint: left flank pain Narrative: This is an 88-year-old female with past medical history significant for recurrent diverticulitis, DJD, CLL. patient presents to the emergency room due to left flank pain of 1 day duration, denies any fevers, rigors, chills, nausea, vomiting. preliminary workup was significant for CBC with a leukocyte count of 110,000, creatinine 1.1. Urinalysis with numerous WBCs 100+ per high-power field. A CT of abdomen and pelvis showed a stone lodged in the UPJ. PATIENT HAS BEEN PLACED IN OBSERVATION FOR FURTHER EVALUATION MANAGEMENT AND TREATMENT. EXAMINATION: CT abdomen pelvis w con DATE: 10/29/2023 21:17 INDICATION: Left lower quadrant abdominal pain. TECHNIQUE: Computed tomography (CT) of the abdomen and pelvis was performed with 100 mL Omnipaque 350 intravenous contrast. Automated exposure control and iterative reconstruction technique were employed. The dose-length product was 265.48 mGy-cm. COMPARISON: CT abdomen and pelvis 07/31/2022 FINDINGS: The visualized portions of the lung bases demonstrate mild chronic interstitial lung disease. No pleural effusion. Cardiomegaly is noted. There are coronary artery calcifications. No pericardial effusion. There are calcifications of the aortic valve. The liver is normal. There is a 5 mm cyst in the spleen. There are changes of cholecystectomy. The pancreas and adrenal glands are normal. There is cortical thinning of right kidney. There are cysts in left kidney measuring up to 7 mm. There is mild left hydronephrosis with urothelial thickening and enhancement. There is a 6 mm stone in left ureteropelvic junction. There is diverticulosis of the colon without evidence of diverticulitis. The appendix is normal. Aortic atherosclerosis is noted. There are no pathologically enlarged lymph nodes. There is no free intraperitoneal fluid. There is lumbar scoliosis and severe spondylosis. IMPRESSION: 1. 6 mm stone in left ureteropelvic junction with mild left hydronephrosis and left-sided pyelitis. Review of Systems Review of Systems: LEFT FLANK PAIN Constitutional: Constitutional: Denies chills, Denies fever(s), Denies malaise and Denies night sweats Eyes: Eyes: Denies change in vision ENT: Denies dysphagia and Denies odynophagia Cardiovascular: Cardiovascular: Denies chest pain, Denies radiating jaw, neck or arm pain and Denies palpitations Respiratory: Respiratory: Denies cough and Denies excessive phlegm production Gastrointestinal: Gastrointestinal: Denies abdominal pain, Denies diarrhea, Reports nausea and Denies vomiting Genitourinary: Genitourinary: Denies dysuria and Reports flank pain (L) Musculoskeletal: Musculoskeletal: Denies myalgias Integumentary/Breasts: Skin/Breast: Denies rash Neurologic: Denies focal weakness and Denies Sensory deficit (Neuro) Psychiatric: Psychiatric: Reports no additional psychiatric complaints and Reports as per HPI Endocrine: Endocrine: Denies cold intolerance, Denies fatigue, Denies flushing, Denies heat intolerance, Denies polyphagia, Denies polydipsia, Denies polyuria and Denies palpitations Hematologic/Lymphatic: Hematologic/Lymphatic: Reports no additional hematologic/lymphatic complaints and Reports as per HPI Allergic/Immunologic: Allergic/Immunologic: Reports no additional allergic/immunologic complaints and Reports as per HPI PMFSH Past Medical History Medical History Chronic lymphocytic leukemia Closed fracture of greater trochanter of left femur History of UTI Surgical History Surgical History H/O cataract extraction History of colonoscopy with polypectomy History of laparoscopic cholecystectomy History of total abdominal hysterectomy Family History Family History (Reviewed 10/29/23 @ 19:28 by Farzana
[2023-10-29 22:43] VITALS: BP 131/72; PULSE 75; RESP 18; O2SAT 100
--- NOTE | 2023-10-29 22:53 | PC.NURSE ---
This rn called phlebotomy to let her know the pt would be going up to the floor. Ambulatory Nurse hung up on me. Ambulatory Nurse arrived as pt was being prepared to be taken to floor. Ambulatory Nurse advised to follow pt to floor.
[2023-10-29 22:57] VITALS: BP 151/79; PULSE 89; RESP 16; TEMP 36.5; O2SAT 100; BMI 24.0
[2023-10-29] MEDS: SODIUM CHLORIDE 0.9% IV 1,000 ML 125 ML IV CONT (22:58)
--- NOTE | 2023-10-29 23:02 | ADMGEN ---
This patient, Kemi Ford, was admitted to Medical Room 258-01. Patient/family oriented to hospital policies and general routines including ID bracelet, bed and alarms, visiting hours, pain management, procedures, bathroom and other care routines, personal items, smoking policy, room service/diet, and visiting hours. Information on how to activate the Rapid Response Team has been discussed. Patient/Family are encouraged to report perceived risks to care and to ask questions if they do not understand what they are told or what they should do.
[2023-10-29 23:41] LABS: Lactic Acid Reflex 1.1 mmol/L (0.7-2.0)
[2023-10-30] VITALS (14 sets, daily range): BP systolic 95–129; BP diastolic 46–85; PULSE 70–107; RESP 14–20; TEMP 36.1–36.6; O2SAT 97–99
--- NOTE | 2023-10-30 07:45 | WPDANESEPPF ---
Anes - Initial Pre Proc Eval Procedure: Operation Date: 10/30/23 08:00 Proposed Procedures p Cysto With Left Stent Placement(Left) - Roscoe Braun MD Date/Time: 10/30/23 07:45 Surgeon: Aparna Pre Op Diagnosis: ureterolihiasis, uti, history of cll Patient Data Age: 88 Gender: F Height: 1.5 m Weight: 54 kg Last Vital Signs Temp 36.4 C 10/30/23 07:01 Pulse 100 10/30/23 07:01 Resp 16 10/30/23 07:01 BP 127/85 10/30/23 07:01 Pulse Ox 98 10/30/23 07:01 O2 Del Method Room Air 10/29/23 23:30 Allergies Allergy/AdvReac Type Severity Reaction Status Date / Time tetracycline Allergy Unknown Unknown Verified 06/30/23 09:55 Home Medications Medication Instructions Recorded Confirmed Type ascorbic acid (vitamin C) 100 mg 100 mg PO DAILY 03/17/23 10/29/23 History chewable tablet ferrous sulfate 325 mg (65 mg 325 mg PO DAILY 03/17/23 10/29/23 History iron) tablet (iron) omega-3 150 vs-rkf-yvp-fish oil 1 cap PO DAILY 03/17/23 10/29/23 History 500 mg-D3 200 unit capsule,delayed rel ([place]-3 Plus Vitamin D3) irtkvjew-muzi-xzyfo acid 240 1 tablet PO DAILY 04/02/23 10/29/23 History mcg-vit K 120 pbk-qapvhd-xqil 293 tablet (Alive Women's 50 Plus (fruit-veg blend)) apixaban 2.5 mg tablet (Eliquis) 2.5 mg PO Q12HR #60 tabs 04/07/23 10/29/23 Rx Senior Vitamin B-12 1 tab-cap PO DAILY 10/29/23 10/29/23 History metoprolol tartrate 25 mg tablet 25 mg PO BID 10/29/23 10/29/23 History Laboratory Tests 10/29/23 10/29/23 10/29/23 17:12 19:41 23:23 WBC 110.4 H* K/mm3 (4.5-10.0) RBC 3.51 L M/mm3 (4.2-5.4) Hgb 10.7 L g/dL (12.0-15.0) Hct 35.2 L % (37.0-47.0) MCV 100.3 H fl (80-100) MCH 30.5 pg (26-34) MCHC 30.4 L g/dl (32-36) RDW 14.7 H % (11.5-14.5) Plt Count 191 k/mm3 (150-375) MPV 9.1 fl (7.4-10.4) Immature Gran % (Auto) Not Reportable Neut % (Auto) Not Reportable Lymph % (Auto) Not Reportable [place] % (Auto) Not Reportable Eos % (Auto) Not Reportable Baso % (Auto) Not Reportable Lymph # (Auto) Not Reportable [place] # (Auto) Not Reportable Eos # (Auto) Not Reportable Baso # (Auto) Not Reportable Abs Immat Gran (auto) Not Reportable Absolute Neuts (auto) Not Reportable Absolute Nucleated RBC Not Reportable Total Counted 100 Neutrophils % (Manual) 10 L % (46-73) Lymphocytes % (Manual) 89.0 H % (18-44) Monocytes % (Manual) 1 L % (3-9) Nucleated RBC % Not Reportable Abs Lymphs (Manual) 98.25 H K/mm3 (1.1-4.5) Abs Monocytes (Manual) 1.10 H K/mm3 (0.1-0.90) Smudge Cells Many Platelet Estimate Adequate (Adequate) Hypochromasia 1+ Anisocytosis 1+ Microcytosis 1+ (NORMAL) Schistocytes None seen Sodium 136 L mmol/L (137-145) Potassium 4.4 mmol/L (3.4-5.0) Chloride 106 mmol/L (98-107) Carbon Dioxide 22 mmol/L (22-30) Anion Gap 8 mmol/L (4-12) BUN 25 H mg/dL (7-17) Creatinine 1.10 H mg/dL (0.7-1.0) Estim Creat Clear Calc Not Reportable Estimated GFR 47 L (59 - ) Glucose 115 H mg/dL (65-110) Lactic Acid 1.1 mmol/L (0.7-2.0) Calcium 9.7 mg/dL (8.4-10.2) Total Bilirubin 1.9 H mg/dL (0.2-1.3) AST 25 U/L (14-36) ALT 11 U/L (6-35) Alkaline Phosphatase 63 U/L (38-126) Total Protein 7.0 g/dL (6.3-8.2) Albumin 4.1 g/dL (3.5-5.1) Lipase 75 U/L (23-300) Urine Color Yellow (Yellow) Urine Appearance Turbid H (Clear)
--- NOTE | 2023-10-30 07:57 | WPDURCON ---
Assessment and Plan Assessment and plan (1) Ureterolithiasis: Code(s): N20.1 - Calculus of ureter Status: Acute Assessment and Plan: Given her urinary tract infection and hydronephrosis have decided to proceed with cystoscopy left retrogrades pyelogram with left ureteral stent placement. The stone will be addressed at a later point time once she gets over her urinary tract infection. (2) Urinary tract infection: Code(s): N39.0 - Urinary tract infection, site not specified Status: Acute Assessment and Plan: Awaiting cultures and sensitivities (3) Chronic lymphocytic leukemia: Code(s): C91.10 - Chronic lymphocytic leukemia of B-cell type not having achieved remission Status: Acute Urology Consult Note HPI Date Seen: 10/30/23 Time Seen: 07:58 Requesting Physician: Erik Sanchez MD Primary Care Provider: Eliseo Waters DO Consult Narrative Reason for consult: 6 mm left UPJ stone with hydronephrosis and UTI Narrative: Kemi Ford is a 88 year old female who presented to the emergency room some left lower quadrant pain. During her evaluation she was found have a 6 mm left UPJ stone with mild hydronephrosis, pyelitis, and a UTI. She was admitted for IV antibiotics as well as further management of the stone. She denies any significant left flank pain and denies any prior kidney stones. Denies any dysuria at this time also. Review of Systems Review of Systems: All systems reviewed & are unremarkable except as noted in HPI and below PMFSH Past Medical History Medical History Chronic lymphocytic leukemia CLL (chronic lymphocytic leukemia) Closed fracture of greater trochanter of left femur History of UTI Mild aortic stenosis Mild pulmonary hypertension Moderate mitral regurgitation Surgical History Surgical History H/O cataract extraction History of colonoscopy with polypectomy History of laparoscopic cholecystectomy History of total abdominal hysterectomy Family History Family History Father Family history of lung cancer Patient's father is Mother Patient's mother is Social History Social History Social History: She is and lives home alone. She has 3 children. 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 She has never smoked. She worked for [email or web address]. No alcohol marijuana or illicit drugs. Code status full code Smoking status: Never smoker Second hand tobacco smoke exposure: Yes Alcohol intake: never Substance use: never Substance use type: does not use Do You Feel Safe in your Home?: Yes Lack of Transportation: No Lack of Food: Never True Current Housing: I Have Housing Concerned About Future Housing: No Difficulty Paying Gas/Electric Bills: No Difficulty Paying for Meds: No Currently Unemployed: No Education: High School Diploma/GED Difficulty w/ Childcare or Family Care: No Occupation/Education: retired Gender identity (if verbalized by the patient): Female Spiritual care concerns: No Meds Home Medications and Allergies Home Medications Medication Instructions Recorded Confirmed Type ascorbic acid (vitamin C) 100 mg 100 mg PO DAILY 03/17/23 10/29/23 History chewable tablet ferrous sulfate 325 mg (65 mg 325 mg PO DAILY 03/17/23 10/29/23 History iron) tablet (iron) omega-3 150 cb-rsd-nlv-fish oil 1 cap PO DAILY 03/17/23 10/29/23 History 500 mg-D3 200 unit capsule,delayed rel ([place]-3 Plus Vitamin D3) zcqxcerg-rcwb-euokf acid 240 1 tablet PO DAILY 04/02/23 10/29/23 History mcg-vit K 120 qer-cxbaed-guda 293 tablet ([facility]
--- NOTE | 2023-10-30 08:00 | WPDHPUPDATE1 ---
History and Physical Update Update Date/Time: 10/30/23 08:00 History and Physical has been reviewed, including an updated exam of the patient. There are NO changes in the patient's condition. Risks, benefits, and alternatives have been discussed and questions answered. Patient agrees to proceed with procedure.
--- NOTE | 2023-10-30 08:04 | PC.NURSE ---
To OR at 0748 per bed, IV right AC.
[2023-10-30] MEDS: LIDOCAINE HCL 2% GEL UROJET 10 ML PKG MUCOUS MEM (08:21)
--- NOTE | 2023-10-30 08:24 | W.PM.PROC2 ---
Procedure Note - Detailed Date of Procedure 10/30/23 Pre-op Diagnosis Left UPJ calculus with UTI Post-op Diagnosis Same Procedure Performed Cystoscopy, left retrograde pyelogram, left ureteral stent placement 4.8 Azeri contour Surgeon Roscoe Braun MD Anesthesia MAC Description of Procedure Patient was taken to the operative suite correctly identified. Once anesthesia was obtained she was placed in dorsal lithotomy position and prepped and draped usual sterile fashion. Twenty-two Azeri scope was inserted into the bladder. There were no tumors noted. The left ureteral orifice was cannulated with a [place] and a pyelogram was performed. Contrast was visualized going into the kidney. Sensor wire was then placed. 4.8 [place]i contour stent was then placed with the proximal end coiled in the renal pelvis the distal in the bladder. Bladder was drained. 2% viscous lidocaine was inserted into the urethra patient is taken recovery stable condition. Will plan on KUB in the morning and await culture sensitivities. This completes dictation. Please send a copy of op note to office. Estimated Blood Loss 0 Drains Yes Packing No Pathology None sent Complications No immediate complications Condition Stable Disposition PACU
[2023-10-30] MEDS: LACTATED RINGERS 1,000 ML 30 ML IV CONT (08:26)
--- NOTE | 2023-10-30 11:42 | PM.IMPN ---
Progress Note: A&P Assessment and Plan (1) Acute UTI: Code(s): N39.0 - Urinary tract infection, site not specified Status: Acute (2) CLL (chronic lymphocytic leukemia): Code(s): C91.10 - Chronic lymphocytic leukemia of B-cell type not having achieved remission Status: Acute (3) Ureterolithiasis: Code(s): N20.1 - Calculus of ureter Status: Acute Plan This is a 88-year-old female presents to the ED with complaint of abdominal pain on the left lower quadrant since yesterday. Colitis with fistula needing past. She was having some fever subjective and some chills. No vomiting or nausea. History of chronic lymphocytic leukemia. In the ED vitals were stable. Laboratory studies showed WBC of 110 hemoglobin of 10.7 creatinine 1.1 urinalysis was suggestive of UTI CT scan of the abdomen was done which performed which showed 6 mm stone with evidence of hydronephrosis IV antibiotics started blood cultures were obtained. Continue IV antibiotics. Urology was consulted and underwent cystoscopy left retrograde pyelogram with left ureteral stent placement on 10/30/2023. Atrial fibrillation on metoprolol Mild chronic anemia CKD stage 3 DVT prophylaxis apixaban Subjective Date/time seen: 10/30/23 11:42 Interval history: Underwent stent placement today feeling better no pain no shortness of breath or chest pain Review of Systems Review of Systems: All systems reviewed & are unremarkable except as noted in HPI and below Exam Narrative: GENERAL: Well-appearing, well-nourished, and in no acute distress. HEAD: Normocephalic, atraumatic. EYES: PERRLA and EOMI. ENT: Nares clear, no rhinorrhea or epistaxis.? Mucous membranes moist. NECK: Supple. CHEST: Clear to auscultation.? No respiratory distress. HEART: Regular rate and rhythm.? No murmur heard.? Normal peripheral pulses. ABDOMEN: Soft,?nontender, nondistended, normal active bowel sounds. EXTREMITIES: Normal range of motion.? No edema. SKIN: Warm, dry, no rash. NEURO: No focal deficits.? Alert and oriented x3. PSYCH: Normal mood and affect. Objective Data Vital Signs Vital Signs: Vital Signs - 24 hr 10/29/23 16:15 10/29/23 18:44 10/29/23 19:03 Temperature 97.6 F Pulse Rate 91 87 97 Respiratory Rate 20 18 20 Blood Pressure 124/72 113/76 135/79 Pulse Oximetry 98 98 99 Oxygen Delivery Room Air Oxygen Flow Rate 10/29/23 22:43 10/29/23 22:57 10/29/23 23:30 Temperature 97.7 F Pulse Rate 75 89 Respiratory Rate 18 16 Blood Pressure 131/72 151/79 H Pulse Oximetry 100 100 Oxygen Delivery Room Air Oxygen Flow Rate 10/30/23 07:01 10/30/23 08:26 10/30/23 08:35 Temperature 97.6 F 97.0 F L Pulse Rate 100 98 92 Respiratory Rate 16 14 15 Blood Pressure 127/85 105/60 129/74 Pulse Oximetry 98 99 98 Oxygen Delivery Simple Face Mask Room Air Oxygen Flow Rate 8 10/30/23 08:50 10/30/23 08:58 10/30/23 09:16 Temperature 97.4 F L Pulse Rate 86 90 107 H Respiratory Rate 16 16 14 Blood Pressure 107/71 125/63 126/74 Pulse Oximetry 98 98 97 Oxygen Delivery Room Air Room Air Oxygen Flow Rate 10/30/23 09:30 10/30/23 10:00 Temperature 97.6 F 97.5 F L Pulse Rate 86 81 Respiratory Rate 14 16 Blood Pressure 114/46 L 118/57 L Pulse Oximetry 98 98 Oxygen Delivery Oxygen Flow Rate Intake/Output Intake/Output: Intake & Output 10/27/23 10/28/23 10/29/23 10/30/23 23:59 23:59 23:59 23:59 Intake Total 150 Output Total 150 Balance 0 Meds/Results Medications: Active Medications Generic Name Dose Route Start Last Admin Trade Name Deidra PRN Reason Stop Dose Admin Acetaminophen 650 mg 10/29/23 22:09 Acetaminophen 325 Mg Tablet PO Q4H PRN Mild Pain (1-3) or Fever Ferrous Sulfate 325 mg 10/30/23 09:00 10/30/23 09:55 Ferrous Sulfate [address] BY MOUTH Not Given DAILY MICHAEL Ceftriaxone Sodium 1 gm in 50 mls @ 100 mls/hr 10/30/23 21:00 Rocephin 1 Gm/N
[2023-10-30] MEDS: METOPROLOL TARTRATE 25 MG TABLET PO ×2 (12:22→17:26)
[2023-10-30] MEDS: cefTRIAXone 2 GM/NS 100 ML 2 GM/100 ML BAG IVPB (14:43)
[2023-10-30] MEDS: ACETAMINOPHEN 325 MG TABLET 650 MG PO (15:38)
[2023-10-30] MEDS: polyethylene glycoL 3350 17 GM POWD.PACK PO (17:26)
[2023-10-30] MEDS: APIXABAN 2.5 MG TABLET PO (20:23)
[2023-10-31 04:16] LABS: Hematocrit 32.2 % (37.0-47.0); Hemoglobin 9.5 g/dL (12.0-15.0); Mean Corpuscular HGB Conc 29.5 g/dl (32-36); Mean Corpuscular Hemoglobin 30.4 pg (26-34); Mean Corpuscular Volume 103.2 fl (80-100); Mean Platelet Volume 9.4 fl (7.4-10.4); Platelet Count Result 154 k/mm3 (150-375); Red Blood Count 3.12 M/mm3 (4.2-5.4); Red Cell Distribution Width 14.7 % (11.5-14.5)
[2023-10-31 04:17] VITALS: BP 119/78; PULSE 96; RESP 20; TEMP 36.8; O2SAT 93
[2023-10-31] MEDS: ACETAMINOPHEN 325 MG TABLET 650 MG PO ×3 (04:18→20:19)
[2023-10-31 04:30] LABS: Alanine Aminotransferase 8 U/L (6-35); Albumin Level 3.4 g/dL (3.5-5.1); Alkaline Phosphatase 51 U/L (38-126); Anion Gap 7 mmol/L (4-12); Aspartate Amino Transferase 20 U/L (14-36); Blood Urea Nitrogen 21 mg/dL (7-17); Calcium 8.8 mg/dL (8.4-10.2); Carbon Dioxide 21 mmol/L (22-30); Chloride 110 mmol/L (98-107); Estimated Glomerular Filt Rate 52; Glucose 119 mg/dL (65-110); Magnesium 2.1 mg/dL (1.6-2.3); Potassium 4.3 mmol/L (3.4-5.0); Sodium 138 mmol/L (137-145)
[2023-10-31 04:44] LABS: White Blood Count 71.3 K/mm3 (4.5-10.0)
[2023-10-31 04:46] LABS: Lymphocytes Absolute Manual 59.89 K/mm3 (1.1-4.5); Neutrophils Percent Manual 16 % (46-73); Platelet Estimate Adequate (Adequate); Schistocytes None Seen; Smudge Cells MANY; Total Cells Counted 100
[2023-10-31 08:57] VITALS: PULSE 96
[2023-10-31] MEDS: APIXABAN 2.5 MG TABLET PO ×2 (08:57→20:18)
[2023-10-31] MEDS: OMEGA 3 POLYUNSAT FATTY ACIDS 1 GM CAP PO (08:57)
[2023-10-31] MEDS: METOPROLOL TARTRATE 25 MG TABLET PO ×2 (08:57→18:51)
[2023-10-31] MEDS: VITAMIN B COMPLEX CAPSULE 1 CAP PO (08:57)
[2023-10-31] MEDS: ASCORBIC ACID 250 MG TABLET PO (08:58)
[2023-10-31] MEDS: MULTIVITAMINS /C LUTEIN (CENTRUM SILVER) TABLET *BKC 1 TAB PO (08:58)
[2023-10-31] MEDS: FERROUS SULFATE 325 MG TABLET DR BY MOUTH (08:58)
--- NOTE | 2023-10-31 13:21 | WPDUROPN2 ---
Progress Note: A&P Assessment and Plan (1) Ureterolithiasis: Code(s): N20.1 - Calculus of ureter Status: Acute Assessment and Plan: stone pushed back into the kidney. It is visible on KUB. Will plan on seeing her in the office in a couple of weeks and obtaining repeat urine culture. Will then plan on outpatient lithotripsy in the future. (2) Sepsis: Code(s): A41.9 - Sepsis, unspecified organism Status: Acute Assessment and Plan: Managed by hospitalist Service Subjective Subjective Date/Time Seen: 10/31/23 13:21 Post Op day: 1 (Cystoscopy, left retrograde, left ureteral stent placement) Principal diagnosis: left ureteral/ renal calculus Interval history: Kemi is feeling better today. Unfortunately she does have Klebsiella in her blood in urine. This is being addressed by the hospitalist service. The proximal ureteral calculus was pushed back into the kidney. From my standpoint will address the stone with lithotripsy in about a month's time. Review of Systems Review of Systems: All systems reviewed & are unremarkable except as noted in HPI and below Exam Const: General: cooperative, comfortable and no acute distress Resp: Effort & Inspection: normal respiratory effort Cardio: Rate: regular rate Rhythm: regular rhythm Objective Data Vital Signs Vital Signs: Vital Signs - 24 hr 10/30/23 14:00 10/30/23 17:26 10/30/23 19:23 Temperature 36.5 C 36.6 C Pulse Rate 76 76 90 Respiratory Rate 18 20 Blood Pressure 123/65 96/60 L Pulse Oximetry 98 98 Oxygen Delivery 10/30/23 20:40 10/30/23 20:00 10/31/23 04:17 Temperature 36.1 C L 36.8 C Pulse Rate 70 96 Respiratory Rate 20 20 Blood Pressure 95/55 L 119/78 Pulse Oximetry 98 93 Oxygen Delivery Room Air 10/31/23 08:57 Temperature Pulse Rate 96 Respiratory Rate Blood Pressure Pulse Oximetry Oxygen Delivery Intake/Output Intake/Output: Intake & Output 10/28/23 10/29/23 10/30/23 10/31/23 23:59 23:59 23:59 23:59 Intake Total 1490 440 Output Total 150 100 Balance 1340 340 Meds/Results Medications: Active Medications Generic Name Dose Route Start Last Admin Trade Name Freq PRN Reason Stop Dose Admin Acetaminophen 650 mg 10/29/23 22:09 10/31/23 04:18 Acetaminophen 325 Mg Tablet PO 650 mg Q4H PRN Administration Mild Pain (1-3) or Fever Apixaban 2.5 mg 10/30/23 21:00 10/31/23 08:57 Apixaban 2.5 Mg Tablet PO 2.5 mg Q12HR MICHAEL Administration Ascorbic Acid 250 mg 10/31/23 09:00 10/31/23 08:58 Ascorbic Acid 250 Mg Tablet PO 250 mg QAM MICHAEL Administration Ferrous Sulfate 325 mg 10/30/23 09:00 10/31/23 08:58 Ferrous Sulfate [address] BY MOUTH 325 mg DAILY MICHAEL Administration Fish Oil 1 gm 10/31/23 09:00 10/31/23 08:57 [place] 3 Polyunsat Fatty Acids 1 Gm Cap PO 1 gm QAM MICHAEL Administration Ceftriaxone Sodium 2 gm in 100 mls @ 200 mls/hr 10/30/23 13:00 10/30/23 15:13 Rocephin 2 Gm/Ns 100 Ml IVPB Infused Q24H MICHAEL Infusion Metoprolol Tartrate 25 mg 10/30/23 11:45 10/31/23 08:57 Metoprolol Tartrate 25 Mg Tablet PO 25 mg BID MICHAEL Administration Morphine Sulfate 4 mg 10/29/23 22:09 Morphine Sulfate (*Crx) 4 Mg/Ml Inj IV PUSH Q2H PRN Pain Rated 7-10 Multivitamins/Minerals 1 tab 10/31/23 09:00 10/31/23 08:58 Multivitamins /C Lutein (Centrum Silver) Tablet *Bkc PO 1 tab QAM MICHAEL Administration Ondansetron HCl 4 mg 10/29/23 22:09 Ondansetron Inj 4 Mg/2 Ml Vial IV PUSH Q4H PRN Nausea Polyethylene Glycol 17 gm 10/30/23 16:43 10/30/23 17:26 Polyethylene Glycol 3350 17 Gm Powd.Pack PO 17 gm QAM PRN Administration Constipation Vitamin B Complex 1 cap 10/31/23 09:00 10/31/23 08:57 Vitamin B Complex Capsule PO 1 cap QAM MICHAEL Administration Radiology Results: ITS Impressions Abdomen/Pelvis CT 10/29/23 21:18 IMPRESSION:
--- NOTE | 2023-10-31 13:24 | PM.IMPN ---
Progress Note: A&P Assessment and Plan (1) Acute UTI: Code(s): N39.0 - Urinary tract infection, site not specified Status: Acute (2) CLL (chronic lymphocytic leukemia): Code(s): C91.10 - Chronic lymphocytic leukemia of B-cell type not having achieved remission Status: Acute (3) Ureterolithiasis: Code(s): N20.1 - Calculus of ureter Status: Acute Plan This is a 88-year-old female presents to the ED with complaint of abdominal pain on the left lower quadrant since yesterday. Colitis with fistula needing past. She was having some fever subjective and some chills. No vomiting or nausea. History of chronic lymphocytic leukemia. In the ED vitals were stable. Laboratory studies showed WBC of 110 hemoglobin of 10.7 creatinine 1.1 urinalysis was suggestive of UTI CT scan of the abdomen was done which performed which showed 6 mm stone with evidence of hydronephrosis IV antibiotics started blood cultures were obtained. Continue IV antibiotics. Urology was consulted and underwent cystoscopy left retrograde pyelogram with left ureteral stent placement on 10/30/2023. Bacteremia identified as Klebsiella pneumoniae. Susceptibility pending. On ceftriaxone 2 g IV daily culture is also growing the same. Which likely the source. 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 Continue to follow-up with general surgery as outpatient basis Atrial fibrillation on metoprolol Mild chronic anemia CKD stage 3 DVT prophylaxis apixaban Subjective Date/time seen: 10/31/23 13:24 Interval history: No overnight events remains afebrile. Overall feels well. Reports he had some stool that she was diagnosed with in the past. Family at bedside and discussed with her. Review of Systems Review of Systems: All systems reviewed & are unremarkable except as noted in HPI and below Exam Narrative: GENERAL: Well-appearing, well-nourished, and in no acute distress. HEAD: Normocephalic, atraumatic. EYES: PERRLA and EOMI. ENT: Nares clear, no rhinorrhea or epistaxis.? Mucous membranes moist. NECK: Supple. CHEST: Clear to auscultation.? No respiratory distress. HEART: Regular rate and rhythm.? No murmur heard.? Normal peripheral pulses. ABDOMEN: Soft,?nontender, nondistended, normal active bowel sounds. EXTREMITIES: Normal range of motion.? No edema. SKIN: Warm, dry, no rash. NEURO: No focal deficits.? Alert and oriented x3. PSYCH: Normal mood and affect. Objective Data Vital Signs Vital Signs: Vital Signs - 24 hr 10/30/23 14:00 10/30/23 17:26 10/30/23 19:23 Temperature 97.7 F 97.9 F Pulse Rate 76 76 90 Respiratory Rate 18 20 Blood Pressure 123/65 96/60 L Pulse Oximetry 98 98 Oxygen Delivery 10/30/23 20:40 10/30/23 20:00 10/31/23 04:17 Temperature 97.0 F L 98.2 F Pulse Rate 70 96 Respiratory Rate 20 20 Blood Pressure 95/55 L 119/78 Pulse Oximetry 98 93 Oxygen Delivery Room Air 10/31/23 08:57 Temperature Pulse Rate 96 Respiratory Rate Blood Pressure Pulse Oximetry Oxygen Delivery Intake/Output Intake/Output: Intake & Output 10/28/23 10/29/23 10/30/23 10/31/23 23:59 23:59 23:59 23:59 Intake Total 1490 440 Output Total 150 100 Balance 1340 340 Meds/Results Medications: Active Medications Generic Name Dose Route Start Last Admin Trade Name Freq PRN Reason Stop Dose Admin Acetaminophen 650 mg 10/29/23 22:09 10/31/23 04:18 Acetaminophen 325 Mg Tablet PO 650 mg Q4H PRN Administration Mild Pain (1-3) or Fever Apixaban 2.5 mg 10/30/23 21:00 10/31/23 08:57 Apixaban 2.5 Mg Tablet PO 2.5 mg Q12HR MICHAEL Administration Ascorbic Acid 250 mg 10/31/23 09:00 10/31/23 08:58 Ascorbic Acid 250 Mg Tablet PO 250 mg QAM MICHAEL Administration Ferrous Sulfate 325 mg 10/30/23 09:00 10/31/23 08:58 Ferrous Sulfate [address] BY MOUTH 325 mg DAILY
[2023-10-31] MEDS: cefTRIAXone 2 GM/NS 100 ML 2 GM/100 ML BAG IVPB (13:34)
[2023-10-31 13:57] VITALS: BP 103/54; PULSE 78; RESP 14; TEMP 36.4; O2SAT 99
--- NOTE | 2023-10-31 14:59 | WPDANESPN ---
Anes - Prog Note Post-Op Date/Time: 10/31/23 14:59 Cardiovascular status: normal Respiratory status: normal Airway patency: baseline Mental status: baseline Post-Op hydration status: normal Vital Signs: Last Vital Signs Temp 36.4 C L 10/31/23 13:57 Pulse 78 10/31/23 13:57 Resp 14 10/31/23 13:57 BP 103/54 L 10/31/23 13:57 Pulse Ox 99 10/31/23 13:57 O2 Del Method Room Air 10/30/23 20:00 O2 Flow Rate 8 10/30/23 08:26 Pain Score (VAS): Patient asleep. No nonverbal signs of pain present at this time. I/O: Intake & Output 10/30/23 10/31/23 10/31/23 23:59 07:59 15:59 Intake Total 200 240 Output Total 100 Balance 100 240 Laboratory Tests 10/31/23 03:54 10/31/23 03:53 10/31/23 10/31/23 03:53 03:54 WBC 71.3 H* RBC 3.12 L Hgb 9.5 L Hct 32.2 L MCV 103.2 H MCH 30.4 MCHC 29.5 L RDW 14.7 H Plt Count 154 MPV 9.4 Immature Gran % (Auto) Not Reportable Neut % (Auto) Not Reportable Lymph % (Auto) Not Reportable [place] % (Auto) Not Reportable Eos % (Auto) Not Reportable Baso % (Auto) Not Reportable Lymph # (Auto) Not Reportable [place] # (Auto) Not Reportable Eos # (Auto) Not Reportable Baso # (Auto) Not Reportable Abs Immat Gran (auto) Not Reportable Absolute Neuts (auto) Not Reportable Absolute Nucleated RBC Not Reportable Total Counted 100 Neutrophils % (Manual) 16 L Lymphocytes % (Manual) 84.0 H Nucleated RBC % Not Reportable Abs Lymphs (Manual) 59.89 H Smudge Cells Many Platelet Estimate Adequate Schistocytes None seen Sodium 138 Potassium 4.3 Chloride 110 H Carbon Dioxide 21 L Anion Gap 7 BUN 21 H Creatinine 1.00 Estim Creat Clear Calc Not Reportable Estimated GFR 52 L Glucose 119 H Calcium 8.8 Magnesium 2.1 Total Bilirubin 1.0 AST 20 ALT 8 Alkaline Phosphatase 51 Total Protein 6.0 L Albumin 3.4 L Microbiology 10/29/23 19:41 Urine Clean Catch Urine Culture - Final Klebsiella pneumoniae 10/29/23 23:23 Blood Blood Culture - Final Klebsiella pneumoniae 10/29/23 23:22 Blood Blood Culture - Preliminary Klebsiella pneumoniae Post-procedural complaints: none Patient Feedback: Patient satisfied with anesthetic care.
[2023-10-31 15:44] LABS: IFOB Positive Control Positive; Immunochemical Fecal Occult Bl Positive (N)
[2023-10-31 18:51] VITALS: PULSE 78
[2023-10-31 20:21] VITALS: BP 103/57; PULSE 71; RESP 20; TEMP 36.3; O2SAT 100
[2023-11-01] VITALS (7 sets, daily range): BP systolic 109–135; BP diastolic 51–68; PULSE 71–97; RESP 14–16; TEMP 36.5–36.9; O2SAT 95–100
[2023-11-01 04:53] LABS: Hematocrit 30.1 % (37.0-47.0); Hemoglobin 9.1 g/dL (12.0-15.0); Mean Corpuscular HGB Conc 30.2 g/dl (32-36); Mean Corpuscular Hemoglobin 31.1 pg (26-34); Mean Corpuscular Volume 102.7 fl (80-100); Mean Platelet Volume 9.4 fl (7.4-10.4); Platelet Count Result 147 k/mm3 (150-375); Red Blood Count 2.93 M/mm3 (4.2-5.4); Red Cell Distribution Width 14.7 % (11.5-14.5)
[2023-11-01 04:58] LABS: White Blood Count 64.6 K/mm3 (4.5-10.0)
[2023-11-01 05:10] LABS: Alanine Aminotransferase 9 U/L (6-35); Albumin Level 3.1 g/dL (3.5-5.1); Alkaline Phosphatase 47 U/L (38-126); Anion Gap 2 mmol/L (4-12); Aspartate Amino Transferase 20 U/L (14-36); Bilirubin,Total 0.5 mg/dL (0.2-1.3); Blood Urea Nitrogen 21 mg/dL (7-17); Calcium 8.4 mg/dL (8.4-10.2); Carbon Dioxide 24 mmol/L (22-30); Chloride 110 mmol/L (98-107); Estimated Glomerular Filt Rate 52; Glucose 118 mg/dL (65-110); Magnesium 2.1 mg/dL (1.6-2.3); Potassium 3.6 mmol/L (3.4-5.0); Sodium 136 mmol/L (137-145)
[2023-11-01 05:54] LABS: Lymphocytes Absolute Manual 51.68 K/mm3 (1.1-4.5); Neutrophils Percent Manual 20 % (46-73); Total Cells Counted 100
[2023-11-01 05:55] LABS: Platelet Clumps Present; Platelet Estimate Slightly Decreased (Adequate)
[2023-11-01 05:56] LABS: Burr Cells 1+; Schistocytes None Seen; Smudge Cells MANY
[2023-11-01] MEDS: APIXABAN 2.5 MG TABLET PO (09:19)
[2023-11-01] MEDS: ASCORBIC ACID 250 MG TABLET PO (09:19)
[2023-11-01] MEDS: FERROUS SULFATE 325 MG TABLET DR BY MOUTH (09:19)
[2023-11-01] MEDS: MULTIVITAMINS /C LUTEIN (CENTRUM SILVER) TABLET *BKC 1 TAB PO (09:19)
[2023-11-01] MEDS: OMEGA 3 POLYUNSAT FATTY ACIDS 1 GM CAP PO (09:19)
[2023-11-01] MEDS: VITAMIN B COMPLEX CAPSULE 1 CAP PO (09:19)
[2023-11-01] MEDS: METOPROLOL TARTRATE 25 MG TABLET PO ×2 (09:22→18:04)
[2023-11-01] MEDS: cefTRIAXone 2 GM/NS 100 ML 2 GM/100 ML BAG IVPB (12:24)
--- NOTE | 2023-11-01 12:40 | PM.IMPN ---
Progress Note: A&P Assessment and Plan (1) Acute UTI: Code(s): N39.0 - Urinary tract infection, site not specified Status: Acute (2) CLL (chronic lymphocytic leukemia): Code(s): C91.10 - Chronic lymphocytic leukemia of B-cell type not having achieved remission Status: Acute (3) Ureterolithiasis: Code(s): N20.1 - Calculus of ureter Status: Acute Plan This is a 88-year-old female presents to the ED with complaint of abdominal pain on the left lower quadrant since yesterday. Colitis with fistula needing past. She was having some fever subjective and some chills. No vomiting or nausea. History of chronic lymphocytic leukemia. In the ED vitals were stable. Laboratory studies showed WBC of 110 hemoglobin of 10.7 creatinine 1.1 urinalysis was suggestive of UTI CT scan of the abdomen was done which performed which showed 6 mm stone with evidence of hydronephrosis IV antibiotics started blood cultures were obtained. Continue IV ceftriaxone Urology was consulted and underwent cystoscopy left retrograde pyelogram with left ureteral stent placement on 10/30/2023. Bacteremia identified as Klebsiella pneumoniae. Susceptibility pending. On ceftriaxone 2 g IV daily culture is also growing the same. Which likely the source. Urine culture for Klebsiella sensitive to ceftriaxone. 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 Continue to follow-up with general surgery as outpatient basis Atrial fibrillation on metoprolol Mild chronic anemia acute on chronic. FOBT positive. On apixaban at home which will be held. PPI b.i.d.. GI consultation need to continue to monitor H&H slight trend downwards CKD stage 3 DVT prophylaxis apixaban Subjective Date/time seen: 11/01/23 12:40 Interval history: No overnight events. No abdominal pain. Nurse reported some blood in the stool. FOBT came back positive as well Review of Systems Review of Systems: All systems reviewed & are unremarkable except as noted in HPI and below Exam Narrative: GENERAL: Well-appearing, well-nourished, and in no acute distress. HEAD: Normocephalic, atraumatic. EYES: PERRLA and EOMI. ENT: Nares clear, no rhinorrhea or epistaxis.? Mucous membranes moist. NECK: Supple. CHEST: Clear to auscultation.? No respiratory distress. HEART: Regular rate and rhythm.? No murmur heard.? Normal peripheral pulses. ABDOMEN: Soft,?nontender, nondistended, normal active bowel sounds. EXTREMITIES: Normal range of motion.? No edema. SKIN: Warm, dry, no rash. NEURO: No focal deficits.? Alert and oriented x3. PSYCH: Normal mood and affect. Objective Data Vital Signs Vital Signs: Vital Signs - 24 hr 10/31/23 13:57 10/31/23 18:51 10/31/23 20:21 Temperature 97.5 F L 97.4 F L Pulse Rate 78 78 71 Respiratory Rate 14 20 Blood Pressure 103/54 L 103/57 L Pulse Oximetry 99 100 Oxygen Delivery 10/31/23 20:00 11/01/23 06:40 11/01/23 08:32 Temperature 97.7 F Pulse Rate 73 Respiratory Rate 16 Blood Pressure 132/63 Pulse Oximetry 100 95 Oxygen Delivery Room Air Room Air 11/01/23 09:22 11/01/23 09:22 11/01/23 09:20 Temperature Pulse Rate 97 97 Respiratory Rate 14 Blood Pressure 135/54 L Pulse Oximetry 97 Oxygen Delivery Room Air Intake/Output Intake/Output: Intake & Output 10/29/23 10/30/23 10/31/23 11/01/23 23:59 23:59 23:59 23:59 Intake Total 1490 1208 520 Output Total 150 100 Balance 1340 1108 520 Meds/Results Medications: Active Medications Generic Name Dose Route Start Last Admin Trade Name Freq PRN Reason Stop Dose Admin Acetaminophen 650 mg 10/29/23 22:09 10/31/23 20:19 Acetaminophen 325 Mg Tablet PO 650 mg Q4H PRN Administration Mild Pain (1-3) or Fever Apixaban 2.5 mg 10/30/23 21:00 11/01/23 09:19 Apixaban 2.5 Mg Tablet PO 2.5 mg Q12HR MICHAEL Administration Ascorbic Acid 250 mg 10/31/23 09:00 11/01/23 09:19 Ascorbic Aci
--- NOTE | 2023-11-01 14:44 | WPDGICN ---
Assessment and Plan Assessment and plan (1) Sepsis: Code(s): A41.9 - Sepsis, unspecified organism Status: Acute Assessment and Plan: reason of admission is sepsis due to stone in ureter and hydronephrosis with bacteremia, treated with abx and cystoscopy. 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 She was admitted 3 days ago with severe pain in left flank pain of 1 day duration with chills, she thought could be diverticulitis but found to have stone lodged in the UPJ (CT scan reviewed), diagnosed with sepsis and Klebsiella bacteremia, treated by urology with cystoscopy and stone mobilization. Pain is gone now and she is feeling much better. No overt gib, last colonoscopy [address] Hayes with small polyp removed, also large size hemorrhoids. She is using daily iron, no signs of recent bleeding. Review of Systems Constitutional: Constitutional: Reports chills Eyes: Eyes: Denies blurry vision ENT: Reports Normal hearing present Cardiovascular: Cardiovascular: Denies chest pain Respiratory: Respiratory: Denies cough Gastrointestinal: Gastrointestinal: Reports abdominal pain Genitourinary: Genitourinary: Reports dysuria and Reports flank pain Musculoskeletal: Musculoskeletal: Denies arthralgias Integumentary/Breasts: Skin/Breast: Denies rash Neurologic: Denies Abnormal speech present Psychiatric: Psychiatric: Denies behavioral changes [facility] Past Medical History Medical History (Updated 11/01/23 @ 14:49 by eLs Alcantara MD) Bacteremia due to Klebsiella pneumoniae Chronic anemia Chronic lymphocytic leukemia CLL (chronic lymphocytic leukemia) Closed fracture of greater trochanter of left femur History of UTI Mild aortic stenosis Mild pulmonary hypertension Moderate mitral regurgitation Occult blood in stools Surgical History Surgical History H/O cataract extraction History of colonoscopy with polypectomy History of laparoscopic cholecystectomy History of total abdominal hysterectomy Family History Family History Father Family history of lung cancer Patient's father is Mother Patient's mother is Social History Social History (Reviewed 10/30/23 @ 0
[2023-11-01] MEDS: PANTOPRAZOLE 40 MG TABLET PO (20:42)
[2023-11-02 05:39] LABS: Basophils Absolute Auto 0.1 K/mm3 (0.0-0.1); Basophils Percent Auto 0.1 % (0.2-1.2); Eosinophils Absolute Auto 0.1 K/mm3 (0-0.3); Eosinophils Percent Auto 0.2 % (0-4.4); Hemoglobin 9.3 g/dL (12.0-15.0); Immature Granulocyte Percent A 0.1 % (0-0.5); Lymphocytes Absolute Auto 73.49 K/mm3 (0.9-3.2); Lymphocytes Percent Auto 93.8 % (18.3-44.2); Mean Corpuscular Hemoglobin 30.9 pg (26-34); Mean Platelet Volume 9.4 fl (7.4-10.4); Monocytes Absolute Auto 0.8 K/mm3 (0.1-0.6); Neutrophils Absolute Auto 3.7 K/mm3 (1.3-6.7); Neutrophils Percent Auto 4.8 % (45.5-73.1); Platelet Count Result 177 k/mm3 (150-375); Red Blood Count 3.01 M/mm3 (4.2-5.4); Red Cell Distribution Width 14.7 % (11.5-14.5)
[2023-11-02 05:55] LABS: Alanine Aminotransferase 9 U/L (6-35); Albumin Level 3.5 g/dL (3.5-5.1); Alkaline Phosphatase 52 U/L (38-126); Anion Gap 6 mmol/L (4-12); Aspartate Amino Transferase 27 U/L (14-36); Bilirubin,Total 0.7 mg/dL (0.2-1.3); Blood Urea Nitrogen 15 mg/dL (7-17); Calcium 9.2 mg/dL (8.4-10.2); Carbon Dioxide 21 mmol/L (22-30); Chloride 110 mmol/L (98-107); Estimated Glomerular Filt Rate 59; Glucose 100 mg/dL (65-110); Magnesium 2.1 mg/dL (1.6-2.3); Potassium 3.9 mmol/L (3.4-5.0); Sodium 137 mmol/L (137-145)
[2023-11-02 06:00] VITALS: BP 124/58; PULSE 75; RESP 16; TEMP 36.5; O2SAT 99
[2023-11-02 07:30] LABS: Platelet Estimate Adequate (Adequate); Schistocytes None Seen; White Blood Count 78.4 K/mm3 (4.5-10.0)
[2023-11-02 07:31] LABS: Smudge Cells FEW
[2023-11-02 09:34] VITALS: O2SAT 97
--- NOTE | 2023-11-02 09:36 | WPDUROPN2 ---
Progress Note: A&P Assessment and Plan (1) Ureterolithiasis: Code(s): N20.1 - Calculus of ureter Status: Acute Assessment and Plan: Underwent left ureteral stent placement on 10/30/[address] Braun. KUB shows stone pushed back into the kidney. Will plan for outpatient follow up in 2-3 weeks for repeat culture and outpatient lithotripsy planning. (2) Sepsis: Code(s): A41.9 - Sepsis, unspecified organism Status: Acute Assessment and Plan: Blood and urine cultures with growth of Klebsiella. Repeat blood cultures pending. Continue antibiotics tailored to culture. Being managed by primary team. Subjective Subjective Date/Time Seen: 11/02/23 09:36 Interval history: Feeling well today. Complains of some loose stools. Denies abdominal pain, nausea, vomiting, fever, chills. Voiding without difficulty. Denies dysuria or hematuria. No bladder spasms. No back or flank pain. Review of Systems Review of Systems: All systems reviewed & are unremarkable except as noted in HPI and below Exam Narrative: General: Awake, alert, comfortable, no acute distress HEENT: Normocephalic, atraumatic, sclerae anicteric Respiratory: Normal respiratory effort, no accessory muscle use Abdomen: Nondistended, soft, nontender Skin: Normal coloration, warm and dry Neurologic: No focal neuro deficits noted Psychiatric: Appropriate mood and affect, judgment and insight intact Objective Data Vital Signs Vital Signs: Vital Signs - 24 hr 11/01/23 14:38 11/01/23 18:04 11/01/23 18:07 Temperature 97.7 F Pulse Rate 71 84 84 Respiratory Rate 16 14 Blood Pressure 109/51 L 126/52 L Pulse Oximetry 97 99 Oxygen Delivery 11/01/23 21:16 11/01/23 20:36 11/02/23 06:00 Temperature 98.4 F 97.7 F Pulse Rate 71 75 Respiratory Rate 16 16 Blood Pressure 125/68 124/58 L Pulse Oximetry 99 99 Oxygen Delivery Room Air 11/02/23 09:34 Temperature Pulse Rate Respiratory Rate Blood Pressure Pulse Oximetry 97 Oxygen Delivery Room Air Intake/Output Intake/Output: Intake & Output 10/30/23 10/31/23 11/01/23 11/02/23 23:59 23:59 23:59 23:59 Intake Total 1490 1208 1470 540 Output Total 150 100 600 Balance 1340 1108 870 540 Meds/Results Medications: Active Medications Generic Name Dose Route Start Last Admin Trade Name Freq PRN Reason Stop Dose Admin Acetaminophen 650 mg 10/29/23 22:09 10/31/23 20:19 Acetaminophen 325 Mg Tablet PO 650 mg Q4H PRN Administration Mild Pain (1-3) or Fever Apixaban 2.5 mg 10/30/23 21:00 11/01/23 09:19 Apixaban 2.5 Mg Tablet PO 2.5 mg Q12HR MICHAEL Administration Ascorbic Acid 250 mg 10/31/23 09:00 11/01/23 09:19 Ascorbic Acid 250 Mg Tablet PO 250 mg QAM MICHAEL Administration Ferrous Sulfate 325 mg 10/30/23 09:00 11/01/23 09:19 Ferrous Sulfate [address] BY MOUTH 325 mg DAILY MICHAEL Administration Fish Oil 1 gm 10/31/23 09:00 11/01/23 09:19 [place] 3 Polyunsat Fatty Acids 1 Gm Cap PO 1 gm QAM MICHAEL Administration Levofloxacin 750 mg 11/02/23 09:00 Levofloxacin 750 Mg Tablet PO 11/08/23 09:01 Q48HR [facility] Metoprolol Tartrate 25 mg 10/30/23 11:45 11/01/23 18:04 Metoprolol Tartrate 25 Mg Tablet PO 25 mg BID MICHAEL Administration Morphine Sulfate 4 mg 10/29/23 22:09 Morphine Sulfate (*Crx) 4 Mg/Ml Inj IV PUSH Q2H PRN Pain Rated 7-10 Multivitamins/Minerals 1 tab 10/31/23 09:00 11/01/23 09:19 Multivitamins /C Lutein (Centrum Silver) Tablet *Bkc PO 1 tab QAM MICHAEL Administration Ondansetron HCl 4 mg 10/29/23 22:09 Ondansetron Inj 4 Mg/2 Ml Vial IV PUSH Q4H PRN Nausea Pantoprazole Sodium 40 mg 11/01/23 21:00 11/01/23 20:42 Pantoprazole 40 Mg Tablet PO 40 mg Q12HR MICHAEL Administration Polyethylene Glycol 17 gm 10/30/23 16:43 10/30/23 17:26 Polyethylene Glycol 3350 17 Gm Powd.Pack PO 17 gm QAM PRN Administrat
[2023-11-02 10:00] VITALS: BP 127/51; PULSE 84; RESP 16; O2SAT 100
[2023-11-02 10:02] VITALS: PULSE 84
[2023-11-02] MEDS: levoFLOXacin 750 MG TABLET PO (10:02)
[2023-11-02] MEDS: METOPROLOL TARTRATE 25 MG TABLET PO (10:02)
[2023-11-02] MEDS: PANTOPRAZOLE 40 MG TABLET PO (10:02)
[2023-11-02] MEDS: OMEGA 3 POLYUNSAT FATTY ACIDS 1 GM CAP PO (10:03)
[2023-11-02] MEDS: ASCORBIC ACID 250 MG TABLET PO (10:03)
[2023-11-02] MEDS: MULTIVITAMINS /C LUTEIN (CENTRUM SILVER) TABLET *BKC 1 TAB PO (10:03)
[2023-11-02] MEDS: FERROUS SULFATE 325 MG TABLET DR BY MOUTH (10:03)
[2023-11-02] MEDS: VITAMIN B COMPLEX CAPSULE 1 CAP PO (10:03)
--- NOTE | 2023-11-02 11:15 | PM.DS ---
DS: Admitting Diagnosis Discharge Date 11/02/2023 Admitting Diagnosis Abdominal pain DS: Discharge Diagnosis Discharge Diagnosis (1) Acute UTI: Code(s): N39.0 - Urinary tract infection, site not specified Status: Acute (2) CLL (chronic lymphocytic leukemia): Code(s): C91.10 - Chronic lymphocytic leukemia of B-cell type not having achieved remission Status: Acute (3) Ureterolithiasis: Code(s): N20.1 - Calculus of ureter Status: Acute DS: Summary Hospital Course Hospital Course: This is a 88-year-old female presents to the ED with complaint of abdominal pain on the left lower quadrant since a day prior to admission. She had history of Colitis with fistula with abscess formation needing drainage in the past.? She was having some fever subjective and some chills.? No vomiting or nausea.? History of chronic lymphocytic leukemia. In the ED vitals were stable.? Laboratory studies showed WBC of 110 hemoglobin of 10.7 creatinine 1.1 urinalysis was suggestive of UTI CT scan of the abdomen was done which performed which showed 6 mm stone with evidence of hydronephrosis IV antibiotics started blood cultures were obtained. Urology was consulted and underwent cystoscopy left retrograde pyelogram with left ureteral stent placement on 10/30/2023. Her blood culture became positive and was identified as Klebsiella pneumoniae.? Susceptible to ceftriaxone 2 g IV daily culture is also growing the same.? Which likely the source.? Urine culture for Klebsiella sensitive to ceftriaxone. Antibiotics were switched to oral at discharge and will complete total 10 days course. She will need to follow up with Urology for stent removal as well as further evaluation for her kidney stones. Possible colovaginal fistula no evidence such finding on recent CT scan.? Continue to follow-up with general surgery as outpatient basis. This pain is related to obstructive uropathy likely underlying fistula if possibly still present does not seem to be the etiology behind her presentation. Atrial fibrillation on metoprolol Mild chronic anemia acute on chronic.? FOBT positive.? On apixaban at home which will be held.? PPI b.i.d..? GI consulted however H&H remained stable she does have internal hemorrhoids which is likely the cause of blood in stool. Though H&H trended downward some during the hospital stay overall remains stable. She did not have any further blood in her stool during the hospital stay. CKD stage 3 remains stable History of CLL follows with [facility] as an outpatient basis. Are white cell count was high when she presented partly related to her UTI and bacteremia which did improve during the hospital course. She will continue to follow-up with [facility] as an outpatient basis for continued evaluation and management of her underlying CLL. DVT prophylaxis apixaban Time Spent with Patient Time attestation: Total time spent providing and/or coordinating discharge services: 35 minutes Exam Narrative: General: Awake, alert, comfortable, no acute distress HEENT: Normocephalic, atraumatic, sclerae anicteric Respiratory: Normal respiratory effort, no accessory muscle use Abdomen: Nondistended, soft, nontender Skin: Normal coloration, warm and dry Neurologic: No focal neuro deficits noted Psychiatric: Appropriate mood and affect, judgment and insight intact DS: Data Data Completed and Pending Labs on day of discharge: Labs from last 24 hours 11/02/23 04:54 WBC 78.4 H* RBC 3.01 L Hgb 9.3 L Hct 31.0 L MCV 103.0 H MCH 30.9 MCHC 30.0 L RDW 14.7 H Plt Count 177 MPV 9.4 Immature Gran % (Auto) 0.1 Neut % (Auto) 4.8 L Lymph % (Auto) 93.8 H [place] % (Auto) 1.0 L Eos % (Auto) 0.2 Baso % (Auto) 0.1 L Lymph # (Auto) 73.49 H [place] # (Auto) 0.8 H Eos # (Auto) 0.1 Baso # (Auto) 0.1 Abs Immat Gran (auto) 0.10 H Absolute Neuts (auto) 3.7 Absolute Nucleated RBC 0.000 Nucleated RBC % 0.0 Smudge C
== END 2023-11-02 12:37 | disposition home or self-care (01) | DRG 854 ==
LOC: ANHED 18:59 → ANH2MED 22:23
PROVIDERS: Emergency Medicine; Urology; Admitting Provider Internal Medicine; Emergency Provider Emergency Medicine; PCP Internal Medicine; Visit Provider Internal Medicine
PROC: 0T778DZ Dilation of Left Ureter with Intraluminal Device, Via Natural or Artificial Opening Endoscopic (ICD-10-PCS; CPT 52352; principal; 2023-10-30 08:00)
DX: A41.9 Sepsis, unspecified organism (principal); C91.10 Chronic lymphocytic leukemia of B-cell type not having achieved remission; N13.0 Hydronephrosis with ureteropelvic junction obstruction; Z16.19 Resistance to other specified beta lactam antibiotics; D62 Acute posthemorrhagic anemia; N82.4 Other female intestinal-genital tract fistulae; N39.0 Urinary tract infection, site not specified; B96.1 Klebsiella pneumoniae [K. pneumoniae] as the cause of diseases classified elsewhere; D63.8 Anemia in other chronic diseases classified elsewhere; I48.91 Unspecified atrial fibrillation; I08.0 Rheumatic disorders of both mitral and aortic valves; K64.8 Other hemorrhoids; N18.30 Chronic kidney disease, stage 3 unspecified; Z90.49 Acquired absence of other specified parts of digestive tract; Z79.01 Long term (current) use of anticoagulants
CPT/HCPCS: 36415; 74018; 74177; 74420; 80053; 81001; 82274; 83605; 83690; 83735; 85025; 87040; 87077; 87086; 87088; 87186; 96361; 96365; 97161; 97165; 99285; A9270; C1758; C1769; C2617; G0378; J0696; J7030; J7120; Q9966; Q9967

== ENCOUNTER 2023-11-08 13:10 | Emergency (ER) | payer MEDICARE, SELFPAY ==
[2023-11-08] VITALS (8 sets, daily range): BP systolic 124–146; BP diastolic 63–76; PULSE 67–106; RESP 16–18; TEMP 36.3; O2SAT 100
--- NOTE | ~2023-11-08 | XR_ITS ---
EXAMINATION: XR abdomen/kub 1V DATE: 11/08/2023 15:53 INDICATION: Left-sided intraureteral stent evaluation TECHNIQUE: A supine view of the abdomen was obtained. COMPARISON: 10/31/2023 FINDINGS: Left intraureteral stent in expected position with loops formed over the expected location of the lef t renal pelvis and bladder. 4 mm stone projecting alongside the proximal loop of the stent. Unchanged phlebolith in the left hemipelvis. Cholecystectomy clips in right upper quadrant. Nonobstructive bow el gas pattern. Mild S-shaped scoliosis of the lumbar spine with severe spondylosis. IMPRESSION: 1. 4 mm left renal stone with unchanged left internal ureteral stent in expected position. Reviewed, dictated and finalized at location B. IMPRESSION: 1. 4 mm left renal stone with unchanged left internal ureteral stent in expecte d position.
[2023-11-08 15:52] LABS: Bacteria Urine Rare /hpf; Calcium Oxalate Crystals Urine Present /hpf; RBC Urine >100 /hpf (0-2); Squamous Epithelial Cell Urine Moderate /hpf (Few); WBC Urine >100 /hpf (0-3)
[2023-11-08 15:55] LABS: Appearance Urine Turbid (Clear); Blood Urine 3+ (Negative); Color Urine Red (Yellow); Glucose Urine UA Negative (Negative); Ketones Urine Negative (Negative); Leukocyte Esterase Ur 2+ LEU/UL (Negative); Nitrate Urine Negative (Negative); Protein Urine 3+ mg/dL (Negative); Specific Grav Ur 1.021 (1.001-1.035)
[2023-11-08 15:57] LABS: Add Urine Microscopic? YES
[2023-11-08 16:13] LABS: Hematocrit 30.9 % (37.0-47.0); Hemoglobin 9.5 g/dL (12.0-15.0); Mean Corpuscular HGB Conc 30.7 g/dl (32-36); Mean Corpuscular Hemoglobin 31.3 pg (26-34); Mean Corpuscular Volume 101.6 fl (80-100); Mean Platelet Volume 9.3 fl (7.4-10.4); Platelet Count Result 211 k/mm3 (150-375); Red Blood Count 3.04 M/mm3 (4.2-5.4); Red Cell Distribution Width 14.8 % (11.5-14.5)
[2023-11-08 16:21] LABS: Alanine Aminotransferase 11 U/L (6-35); Albumin Level 3.5 g/dL (3.5-5.1); Alkaline Phosphatase 54 U/L (38-126); Anion Gap 4 mmol/L (4-12); Aspartate Amino Transferase 22 U/L (14-36); Bilirubin,Total 0.8 mg/dL (0.2-1.3); Blood Urea Nitrogen 15 mg/dL (7-17); Calcium 8.9 mg/dL (8.4-10.2); Carbon Dioxide 25 mmol/L (22-30); Chloride 108 mmol/L (98-107); Estimated Glomerular Filt Rate 59; Glucose 102 mg/dL (65-110); Lipase 94 U/L (23-300); Potassium 3.7 mmol/L (3.4-5.0); Sodium 137 mmol/L (137-145)
[2023-11-08 17:05] LABS: White Blood Count 75.8 K/mm3 (4.5-10.0)
--- NOTE | 2023-11-08 17:05 | ED.ABDPAIN ---
HPI - Abdominal Pain General Chief Complaint: Abdominal Pain Stated Complaint: abd pain Time Seen by Provider: 11/08/23 15:19 History of Present Illness HPI narrative: He was patient is an 88-year-old female who presents ER with left-sided abdominal pain. Sudden onset this morning. Sharp. It is currently resolved itself. Has a known ureteral stent in place on that side because she had a septic stone. She is awaiting to clear infection so she can have the stent removed. She is a patient of Dr. Braun. No fevers or chills. She is having some burning urination over the last 2 days. Related Data Home Medications Medication Instructions Recorded Confirmed ascorbic acid (vitamin C) 100 mg 100 mg PO DAILY 03/17/23 10/29/23 chewable tablet ferrous sulfate 325 mg (65 mg 325 mg PO DAILY 03/17/23 10/29/23 iron) tablet (iron) omega-3 150 he-rtl-zzx-fish oil 1 cap PO DAILY 03/17/23 10/29/23 500 mg-D3 200 unit capsule,delayed rel ([place]-3 Plus Vitamin D3) nhajsfif-ohxh-kdegb acid 240 1 tablet PO DAILY 04/02/23 10/29/23 mcg-vit K 120 nrw-fimamz-nalr 293 tablet (Alive Women's 50 Plus (fruit-veg blend)) Senior Vitamin B-12 1 tab-cap PO DAILY 10/29/23 10/29/23 metoprolol tartrate 25 mg tablet 25 mg PO BID 10/29/23 10/29/23 Allergies Allergy/AdvReac Type Severity Reaction Status Date / Time tetracycline Allergy Unknown Unknown Verified 11/08/23 13:39 Review of Systems Review of Systems: All systems reviewed & are unremarkable except as noted in HPI and below Constitutional: Constitutional: Reports no additional constitutional complaints ENT: Reports system reviewed and no additional complaints, except as documented Cardiovascular: Cardiovascular: Reports no additional cardiovascular complaints Respiratory: Respiratory: Reports no additional respiratory complaints Gastrointestinal: Gastrointestinal: Reports abdominal pain, Denies constipation, Denies diarrhea, Denies nausea and Denies vomiting Genitourinary: Genitourinary: Denies nocturia, Reports dysuria and Denies flank pain Musculoskeletal: Musculoskeletal: Reports no additional musculoskeletal complaints [facility] Past Medical History Medical History (Updated 11/08/23 @ 18:19 by Jackson De Leon MD) Bacteremia due to Klebsiella pneumoniae Chronic anemia Chronic lymphocytic leukemia CLL (chronic lymphocytic leukemia) Closed fracture of greater trochanter of left femur History of UTI Mild aortic stenosis Mild pulmonary hypertension Moderate mitral regurgitation Occult blood in stools Surgical History Surgical History H/O cataract extraction History of colonoscopy with polypectomy History of laparoscopic cholecystectomy History of total abdominal hysterectomy Family History Family History Father Family history of lung cancer Patient's father is Mother Patient's mother is Social History Social History Social History: She is and lives home alone. She has 3 children. 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 She has never smoked. She worked for [employer]. No alcohol marijuana or illicit drugs. Code status full code Smoking status: Never smoker Second hand tobacco smoke exposure: Yes Alcohol intake: never Substance use: never Substance use type: does not use Do You Feel Safe in your Home?: Yes Lack of Transportation: No Lack of Food: Never True Current Housing: I Have Housing Concerned About Future Housing: No Difficulty Paying Gas/Electric Bills: No Difficulty Paying for Meds: No Currently Unemployed: No Education: High School Diploma/GED Difficulty w/ Childcare or Family Care: No Occupation/Education: retired
[2023-11-08 17:09] LABS: Hypochromasia 1+; Lymphocytes Absolute Manual 68.97 K/mm3 (1.1-4.5); Neutrophils Percent Manual 9 % (46-73); Platelet Estimate Adequate (Adequate); Schistocytes None Seen; Total Cells Counted 100
== END 2023-11-08 18:35 | disposition home or self-care (01) ==
PROVIDERS: Physician Assistant; Emergency Provider Emergency Medicine; PCP Internal Medicine
DX: N39.0 Urinary tract infection, site not specified (principal); T83.84XA Pain due to genitourinary prosthetic devices, implants and grafts, initial encounter; C91.10 Chronic lymphocytic leukemia of B-cell type not having achieved remission; I35.0 Nonrheumatic aortic (valve) stenosis; I27.20 Pulmonary hypertension, unspecified; I34.0 Nonrheumatic mitral (valve) insufficiency; D64.9 Anemia, unspecified; Z87.442 Personal history of urinary calculi; Z86.010 Personal history of colon polyps; Z90.49 Acquired absence of other specified parts of digestive tract; Z90.710 Acquired absence of both cervix and uterus; Z98.49 Cataract extraction status, unspecified eye; Y73.2 Prosthetic and other implants, materials and accessory gastroenterology and urology devices associated with adverse incidents; Z79.01 Long term (current) use of anticoagulants
CPT/HCPCS: 36415; 74018; 80053; 81001; 83605; 83690; 85025; 87086; 99283

== ENCOUNTER 2023-12-13 08:05 | Outpatient (CLI) | payer MEDICARE, SELFPAY ==
[2023-12-13 08:44] LABS: Hematocrit 37.7 % (37.0-47.0); Hemoglobin 11.1 g/dL (12.0-15.0)
[2023-12-13 08:58] LABS: INR 1.2; Partial Thromboplastin Time 29.6 Seconds (22.3-36.8)
== END 2023-12-13 08:06 | disposition home or self-care (01) ==
LOC: ANHSURGERY 08:12
PROVIDERS: Anesthesiology; PCP Internal Medicine; Visit Provider Urology
DX: D64.9 Anemia, unspecified (principal); N20.0 Calculus of kidney; Z01.818 Encounter for other preprocedural examination
CPT/HCPCS: 36415; 85014; 85018; 85610; 85730; 87077; 87086; 87186

== ENCOUNTER 2023-12-17 00:12 | Day surgery (SDC) | payer MEDICARE, SELFPAY ==
--- NOTE | 2023-12-08 08:35 | PC.NURSE ---
Report to the Outpatient Waiting Room, entrance under the green pavilion located off [facility], at time __6:00 AM on date _12/17/23 . Planned Procedure Time: _7:30 AM . Time changes happen often and if your time is changed the preop area will call you the afternoon before. - You and your visitor will be asked to self-screen and do not enter if you have any COVID symptoms. - A mask is optional within the hospital at this time. Patients may have clear liquids (water, carbonated beverages, clear teas, apple juice) until 3 hours prior to surgery( 4:30 AM) with a maximum of 20 ounces. PATIENT STATES PER DR MEDELLIN CLEAR DIET DAY PRIOR TO SURGERY - Take the following medications with a SIP of water the morning of surgery: ___METOPROLOL DO NOT STOP ANY OF YOUR OTHER PRESCRIPTION MEDICATIONS PRIOR TO SURGERY ?EXCEPT THE FOLLOWING Medications to discontinue per physician __PT STATES HOLD ELIQUIS 2 DAYS PRE OP PER DR MEDELLIN.LAST DOSE 12/14/23 AND HOLD ALL VITAMINS AND SUPPLEMENTS 7 DAYS PRE OP PER DR MEDELLIN LAST DOSE 12/09/23 Please no make-up, nail bahamian, hairspray, perfume, deodorant, or body powder the day of surgery. No jewelry (including any body piercings) or valuables the day of surgery, leave them at home. Please take a shower or bath the night before, or the morning of, surgery with an antibacterial soap. Wear comfortable, loose fitting clothing. Children are encouraged to wear pajamas. - Jewelry must be removed prior to entering the operating room. Rings and piercings that are not removed may be cut off. - The hospital will not accept responsibility for valuables. - Please leave all valuables, including medications, at home the day of surgery. If you are going home after surgery, a licensed tow truck driver must drive you home. - NO public transportation without another adult if you receive anesthesia. - We recommend that an adult stay with you for 24 hours following discharge. - We also recommend that you do not drive, make important decision, drink alcoholic beverages, or take any drugs that were not prescribed by your health care provider for at least 24 hours after your discharge time. For Pediatric surgeries, we recommend two adults accompany the child home. Follow any additional instructions given to you from your surgeon. If you or anyone in your household have experienced Covid symptoms in the past week, please notify your surgeon or the nurse liaison at the phone number below for possible testing. Telephone instructions given to _PATIENT and asked if any additional questions and then verbalized understanding. Patient advised to call surgeon office or pre surgery nurse liaison [phone] if any additional questions.
[2023-12-08 08:51] VITALS: BMI 25.0
--- NOTE | 2023-12-16 14:03 | WPDANESEPPF ---
Anes - Initial Pre Proc Eval Procedure: Operation Date: 12/17/23 07:30 Proposed Procedures p Left Extracorporeal Shock Wave Lithotripsy - Roscoe Braun MD Date/Time: 12/16/23 14:03 Surgeon: Roscoe Braun MD Pre Op Diagnosis: renal kidney stone Patient Data Age: 88 Gender: F Height: 1.47 m Weight: 54.45 kg Allergies Allergy/AdvReac Type Severity Reaction Status Date / Time tetracycline Allergy Unknown Unknown Verified 12/08/23 08:20 Home Medications Medication Instructions Recorded Confirmed Type ascorbic acid (vitamin C) 100 mg 100 mg PO DAILY 03/17/23 12/08/23 History chewable tablet ferrous sulfate 325 mg (65 mg 325 mg PO DAILY 03/17/23 12/08/23 History iron) tablet (iron) omega-3 150 gk-ojm-mvu-fish oil 1 cap PO DAILY 03/17/23 12/08/23 History 500 mg-D3 200 unit capsule,delayed rel ([place]-3 Plus Vitamin D3) ivfklaau-sllf-nicwk acid 240 1 tablet PO DAILY 04/02/23 12/08/23 History mcg-vit K 120 icb-ygiggn-wkmf 293 tablet (Alive Women's 50 Plus (fruit-veg blend)) apixaban 2.5 mg tablet (Eliquis) 2.5 mg PO Q12HR #60 tabs 04/07/23 12/08/23 Rx metoprolol tartrate 25 mg tablet 25 mg PO BID 10/29/23 12/08/23 History cyanocobalamin (vitamin B-12) 1,000 mcg PO DAILY 12/08/23 12/08/23 History 1,000 mcg tablet Patient hx anesthesia problems: none Family hx anesthesia problems: none Results Review: All pre-operative results and documents have been reviewed as part of the pre-operative evaluation. [facility] Past Medical History Medical History (Updated 12/16/23 @ 14:10 by Anant Bradley DO) Bacteremia due to Klebsiella pneumoniae Chronic anemia Chronic lymphocytic leukemia CLL (chronic lymphocytic leukemia) Closed fracture of greater trochanter of left femur History of UTI Hypertension Mild aortic stenosis Mild pulmonary hypertension Moderate mitral regurgitation Occult blood in stools Surgical History Surgical History H/O cataract extraction History of colonoscopy with polypectomy History of laparoscopic cholecystectomy History of total abdominal hysterectomy Family History Family History Father Family history of lung cancer Patient's father is Mother Patient's mother is Social History Social History Social History: She is and lives home alone. She has 3 children. Her son and daughter that live nearby ER that durable power french binding folder for healthcare. She has never smoked. She worked for [employer]. No alcohol marijuana or illicit drugs. Code status full code Smoking status: Never smoker Second hand tobacco smoke exposure: Yes Alcohol intake: never Substance use: never Substance use type: does not use Do You Feel Safe in your Home?: Yes Lack of Transportation: No Lack of Food: Never True Current Housing: I Have Housing Concerned About Future Housing: No Difficulty Paying Gas/Electric Bills: No Difficulty Paying for Meds: No Currently Unemployed: No Education: High School Diploma/GED Difficulty w/ Childcare or Family Care: No Living arrangements: alone Occupation/Education: retired Gender identity (if verbalized by the patient): Female Spiritual care concerns: No Anes - Eval Final PreProcedure Day of Procedure 12/16/23 14:03 Patient weight: overweight Heart: regular rate and rhythm Lungs: clear to auscultation Airway: Mallampati scale class II Neurological: alert and oriented Last oral intake: >/= 8 hours ASA classification: IV Emergent: no Anesthetic plan: proceed Anesthesia type and monitoring: general LMA and standard monitoring Results Review: All pre-operative results and documents have been reviewed as part of the pre-operative e
[2023-12-17] VITALS (9 sets, daily range): BP systolic 111–134; BP diastolic 40–94; PULSE 56–74; RESP 12–20; TEMP 36.2–36.4; O2SAT 97–100; BMI 22.8
--- NOTE | ~2023-12-17 | XR_ITS ---
EXAMINATION: XR abdomen/kub 1V DATE: 12/17/2023 06:14 INDICATION: Kidney stone. TECHNIQUE: A supine view of the abdomen on 2 radiographs was obtained. COMPARISON: Abdomen radiograph 11/08/2023, CT abdomen and pelvis 10/29/2023 FINDINGS: There are no dilated loops of bowel. There is a left internal ureteral stent in expected po sition. There is a 6 mm stone at left ureteropelvic junction. There is a phlebolith in left pelvis. S urgical clips in the right upper quadrant are likely from cholecystectomy. IMPRESSION: 1. 6 mm stone at left ureteropelvic junction with left internal ureteral stent in expected position. Reviewed, dictated and finalized at location A.
[2023-12-17 07:14] LABS: INR 1.2; Prothrombin Time 15.5 Seconds (11.1-14.7)
--- NOTE | 2023-12-17 07:16 | WPDHPUPDATE1 ---
History and Physical Update Update Date/Time: 12/17/23 07:16 History and Physical has been reviewed, including an updated exam of the patient. There are NO changes in the patient's condition. Risks, benefits, and alternatives have been discussed and questions answered. Patient agrees to proceed with procedure. Proceed with left renal eswl
[2023-12-17] MEDS: LACTATED RINGERS 1,000 ML 30 ML IV CONT (07:28)
[2023-12-17] MEDS: ceFAZolin 2 GM/D5W 50 ML 2 GM/50 ML BAG IVPB (07:39)
--- NOTE | 2023-12-17 08:03 | W.PM.PROC2 ---
Procedure Note - Detailed Date of Procedure 12/17/23 Pre-op Diagnosis Left renal calculus Post-op Diagnosis Same Procedure Performed Lithotripsy of left renal calculus Surgeon Roscoe Braun MD Anesthesia General Description of Procedure Patient was taken the operative suite correctly identified. Once anesthesia was obtained the stone was localized in both planes. Measure proximally 5-6 mm. Two thousand five hundred shocks were given the stone. There appeared to be fragmentation. Patient tolerated procedure well without any complications was taken recovery stable condition. She will follow-up in a week's time for a KUB and possible stent removal if the stone is gone. This completes dictation. Please send a copy of op note to my office Estimated Blood Loss 0 Packing No Pathology None sent Complications No immediate complications Condition Stable Disposition PACU
== END 2023-12-17 09:54 | disposition home or self-care (01) ==
PROVIDERS: PCP Internal Medicine; Visit Provider Urology
PROC: (CPT 50590; principal; 2023-12-17 07:30)
DX: N20.0 Calculus of kidney (principal); D64.9 Anemia, unspecified; I48.91 Unspecified atrial fibrillation; I10 Essential (primary) hypertension; I35.0 Nonrheumatic aortic (valve) stenosis; I27.20 Pulmonary hypertension, unspecified; I34.0 Nonrheumatic mitral (valve) insufficiency; K57.32 Diverticulitis of large intestine without perforation or abscess without bleeding; C91.10 Chronic lymphocytic leukemia of B-cell type not having achieved remission; Z79.01 Long term (current) use of anticoagulants; Z98.890 Other specified postprocedural states; Z90.49 Acquired absence of other specified parts of digestive tract; Z80.1 Family history of malignant neoplasm of trachea, bronchus and lung
CPT/HCPCS: 50590; 36415; 74018; 85014; 85018; 85610; 85730; 87077; 87086; 87088; 87186; J0690; J1100; J2405; J2704; J7030; J7120

== ENCOUNTER 2024-01-03 10:05 | Outpatient (CLI) | payer MEDICARE, SELFPAY ==
--- NOTE | ~2024-01-03 | XR_ITS ---
XR abdomen/kub 1V Ordering provider: Roscoe Braun MD History: . FU LEFT LITHROTRIPSY . Comparison: December 17, 2023 FINDINGS: BOWEL: Nonobstructive bowel gas pattern. ORGANOMEGALY: None. SIGNIFICANT PATHOLOGIC CALCIFICATIONS: Left kidney stone. Stone seen in the left upper ureter is not demonstrated at this time. Calcification seen in the left pelvis is unchanged. OTHER: Left double-J stent seen. No free air is seen under the diaphragm. Degenerative the spine with levoscoliosis. Left sacroiliitis. Bilateral hip osteoarthritic changes. IMPRESSION: NO ACUTE ABDOMINAL FINDINGS. Possible left renal stone. Reviewed, dictated and finalized at location A.
== END 2024-01-03 10:06 | disposition home or self-care (01) ==
PROVIDERS: PCP Internal Medicine; Visit Provider Urology
DX: N20.0 Calculus of kidney (principal)
CPT/HCPCS: 74018

== ENCOUNTER 2024-01-14 09:01 | Outpatient (CLI) | payer MEDICARE, SELFPAY ==
[2024-01-14 09:15] LABS: Eosinophils Absolute Auto 0.2 K/mm3 (0-0.3); Eosinophils Percent Auto 0.1 % (0-4.4); Hematocrit 36.4 % (37.0-47.0); Hemoglobin 10.5 g/dL (12.0-15.0); Immature Granulocyte Absolute 0.22 K/mm3 (0.00-0.031); Immature Granulocyte Percent A 0.2 % (0-0.5); Lymphocytes Absolute Auto 134.51 K/mm3 (0.9-3.2); Lymphocytes Percent Auto 95.6 % (18.3-44.2); Mean Corpuscular HGB Conc 28.8 g/dl (32-36); Mean Platelet Volume 9.1 fl (7.4-10.4); Monocytes Absolute Auto 1.3 K/mm3 (0.1-0.6); Monocytes Percent Auto 0.9 % (2.6-8.5); Neutrophils Absolute Auto 4.5 K/mm3 (1.3-6.7); Neutrophils Percent Auto 3.2 % (45.5-73.1); Platelet Count Result 198 k/mm3 (150-375); Red Cell Distribution Width 15.4 % (11.5-14.5)
[2024-01-14 09:18] LABS: White Blood Count 140.7 K/mm3 (4.5-10.0)
[2024-01-14 09:29] LABS: Platelet Estimate Adequate (Adequate); Schistocytes None Seen; Smudge Cells FEW
[2024-01-14 09:30] LABS: Atypical Lymphocytes Present
[2024-01-14 13:38] LABS: Anion Gap 11 mmol/L (4-12); Blood Urea Nitrogen 19 mg/dL (7-17); Calcium 9.5 mg/dL (8.4-10.2); Carbon Dioxide 23 mmol/L (22-30); Chloride 105 mmol/L (98-107); Estimated Glomerular Filt Rate 47; Glucose 102 mg/dL (65-110); Potassium 4.6 mmol/L (3.4-5.0); Sodium 139 mmol/L (137-145)
== END 2024-01-14 09:02 | disposition home or self-care (01) ==
LOC: ANHLAB 09:02
PROVIDERS: PCP Internal Medicine; Visit Provider Internal Medicine Hematology & Oncology
DX: C91.10 Chronic lymphocytic leukemia of B-cell type not having achieved remission (principal)
CPT/HCPCS: 36415; 80048; 85025

== ENCOUNTER 2024-03-17 08:58 | Outpatient (CLI) | payer MEDICARE, SELFPAY ==
[2024-03-17 09:17] LABS: Hematocrit 34.3 % (37.0-47.0); Hemoglobin 9.8 g/dL (12.0-15.0); Immature Granulocyte Percent A 0.2 % (0-0.5); Lymphocytes Absolute Auto 140.34 K/mm3 (0.9-3.2); Lymphocytes Percent Auto 95.3 % (18.3-44.2); Mean Corpuscular HGB Conc 28.6 g/dl (32-36); Mean Corpuscular Hemoglobin 29.5 pg (26-34); Mean Corpuscular Volume 103.3 fl (80-100); Monocytes Absolute Auto 1.1 K/mm3 (0.1-0.6); Monocytes Percent Auto 0.7 % (2.6-8.5); Neutrophils Absolute Auto 5.5 K/mm3 (1.3-6.7); Neutrophils Percent Auto 3.8 % (45.5-73.1); Platelet Count Result 204 k/mm3 (150-375); Red Blood Count 3.32 M/mm3 (4.2-5.4); Red Cell Distribution Width 14.6 % (11.5-14.5)
[2024-03-17 09:25] LABS: White Blood Count 147.2 K/mm3 (4.5-10.0)
[2024-03-17 09:29] LABS: Platelet Estimate Adequate (Adequate); Schistocytes None Seen; Smudge Cells PRESENT
[2024-03-17 11:05] LABS: Alanine Aminotransferase 12 U/L (6-35); Albumin Level 4.1 g/dL (3.5-5.1); Alkaline Phosphatase 93 U/L (38-126); Anion Gap 12 mmol/L (4-12); Aspartate Amino Transferase 25 U/L (14-36); Bilirubin,Total 1.4 mg/dL (0.2-1.3); Blood Urea Nitrogen 23 mg/dL (7-17); Calcium 9.2 mg/dL (8.4-10.2); Carbon Dioxide 24 mmol/L (22-30); Chloride 103 mmol/L (98-107); Estimated Glomerular Filt Rate 47; Glucose 102 mg/dL (65-110); Potassium 4.4 mmol/L (3.4-5.0); Sodium 139 mmol/L (137-145)
[2024-03-17 11:20] LABS: Iron 67 ug/dL (37-170)
[2024-03-17 11:21] LABS: Lactate Dehydrogenase 205 U/L (120-246)
[2024-03-17 11:42] LABS: Percent Iron Saturation 22 % (20-50)
== END 2024-03-17 08:59 | disposition home or self-care (01) ==
PROVIDERS: PCP Internal Medicine; Visit Provider Internal Medicine Hematology & Oncology
DX: D64.9 Anemia, unspecified (principal)
CPT/HCPCS: 36415; 80053; 82607; 82728; 83540; 83550; 83615; 85025

== ENCOUNTER 2024-03-30 07:43 | Outpatient (CLI) | payer MEDICARE, SELFPAY ==
--- NOTE | ~2024-03-30 | MR_ITS ---
Procedure: MR lumbar spine wo con Ordering provider: Susan Foster, SMELTER LINER History: . Lumbar radicular pain . Comparison: None. Technique: MRI thoracic spine without contrast. FINDINGS: SPINAL CORD: Normal. VERTEBRAL BODIES: Anterolisthesis seen at the level of L2-L3. Anterolisthesis seen at the level of L4 -L5. Possible hemangioma versus endplate changes in L5 superiorly. Otherwise, Normal height and align ment. No compression fracture. Normal marrow signal. Levoscoliosis. DISK SPACES: Narrowing of all the disc spaces except L4-L5. T12-L1: Focal right paracentral disc bulge. Right facet joint disease. L1-L2: Posterior osteophytes with focal disc protrusion with inferior migration is not excluded. L2-L3: posterior osteophytes with diffuse disc bulge. Bilateral narrowing of the foramina with left n erve root compression. Bilateral facet joint disease. L3-L4: diffuse disc bulge with bilateral narrowing of the foramina and left nerve root compression. L eft facet joint disease. L4-L5: severe spinal canal stenosis. Diffuse disc bulge with bilateral narrowing of the foramina and nerve root compression more on the left side. Bilateral facet joint disease with focal thickening of the right ligamenta flava. L5-S1: posterior osteophytes with disc bulges narrowing of the right lateral recess with right nerve root compression. Narrowing of the foramina with bilateral nerve root compression. Bilateral facet melanie int disease. PARASPINOUS SOFT TISSUES: Normal. Small left renal cyst. IMPRESSION: No acute osseous abnormality. Multilevel degenerative disease with variable degrees of spinal canal stenosis, intervertebral forami nal narrowing and root compression. Reviewed, dictated and finalized at location A. IMPRESSION: No acute osseous abnormality. Multilevel degenerative disease with variable degrees of spinal canal stenosis, intervertebral foraminal narrowing and root compression.
== END 2024-03-30 07:44 | disposition home or self-care (01) ==
LOC: MICIMG 07:45
PROVIDERS: PCP Internal Medicine; Visit Provider Nurse Practitioner Family
DX: M51.369 Other intervertebral disc degeneration, lumbar region without mention of lumbar back pain or lower extremity pain (principal)
CPT/HCPCS: 72148

== ENCOUNTER 2024-05-02 09:12 | Outpatient (CLI) | payer MEDICARE, SELFPAY ==
--- NOTE | ~2024-05-02 | XR_ITS ---
3 VIEWS THORACIC SPINE Ordering provider: Susan Foster, RISK DEVELOPER History: . Thoracic back pain . Comparison: None. FINDINGS: VERTEBRAL BODIES: Loss of height of T7 is noted suggestive of compression fracture. MRI evaluation ad vised. Otherwise, Normal height and alignment. No visible subluxation. Degenerative changes of the sp ine. Levoscoliosis in the thoracolumbar area. DISK SPACES: Multilevel narrowing of the disc spaces. SOFT TISSUES: Normal. IMPRESSION: Highly suggestive acute fracture of T7. MRI evaluation advised. Reviewed, dictated and finalized at location A. AGE GARAGE MANAGER
== END 2024-05-02 09:13 | disposition home or self-care (01) ==
PROVIDERS: PCP Nurse Practitioner Family; Visit Provider Nurse Practitioner Family
DX: M54.6 Pain in thoracic spine (principal)
CPT/HCPCS: 72072

== ENCOUNTER 2024-05-02 09:39 | Outpatient (CLI) | payer MEDICARE, SELFPAY ==
[2024-05-02 10:09] LABS: Eosinophils Absolute Auto 0.1 K/mm3 (0-0.3); Hematocrit 39.2 % (37.0-47.0); Hemoglobin 11.3 g/dL (12.0-15.0); Immature Granulocyte Absolute 0.33 K/mm3 (0.00-0.031); Immature Granulocyte Percent A 0.2 % (0-0.5); Lymphocytes Absolute Auto 166.66 K/mm3 (0.9-3.2); Mean Corpuscular HGB Conc 28.8 g/dl (32-36); Mean Corpuscular Volume 100.5 fl (80-100); Mean Platelet Volume 9.1 fl (7.4-10.4); Monocytes Absolute Auto 2.6 K/mm3 (0.1-0.6); Monocytes Percent Auto 1.5 % (2.6-8.5); Neutrophils Absolute Auto 5.7 K/mm3 (1.3-6.7); Neutrophils Percent Auto 3.3 % (45.5-73.1); Platelet Count Result 239 k/mm3 (150-375); Red Cell Distribution Width 16.2 % (11.5-14.5)
[2024-05-02 10:11] LABS: White Blood Count 175.5 K/mm3 (4.5-10.0)
[2024-05-02 10:18] LABS: Atypical Lymphocytes Present; Platelet Estimate Adequate (Adequate); Schistocytes None Seen
[2024-05-02 11:14] LABS: Iron 46 ug/dL (37-170)
[2024-05-02 11:21] LABS: Alanine Aminotransferase 11 U/L (6-35); Albumin Level 4.5 g/dL (3.5-5.1); Alkaline Phosphatase 114 U/L (38-126); Anion Gap 11 mmol/L (4-12); Aspartate Amino Transferase 23 U/L (14-36); Bilirubin,Total 1.2 mg/dL (0.2-1.3); Blood Urea Nitrogen 18 mg/dL (7-17); Calcium 9.9 mg/dL (8.4-10.2); Carbon Dioxide 25 mmol/L (22-30); Chloride 104 mmol/L (98-107); Estimated Glomerular Filt Rate 52; Glucose 120 mg/dL (65-110); Lactate Dehydrogenase 189 U/L (120-246); Potassium 4.3 mmol/L (3.4-5.0); Sodium 140 mmol/L (137-145)
[2024-05-02 11:24] LABS: Percent Iron Saturation 15 % (20-50)
== END 2024-05-02 09:40 | disposition home or self-care (01) ==
PROVIDERS: PCP Nurse Practitioner Family; Visit Provider Internal Medicine Hematology & Oncology
DX: C91.10 Chronic lymphocytic leukemia of B-cell type not having achieved remission (principal)
CPT/HCPCS: 36415; 80053; 82607; 82728; 83540; 83550; 83615; 85025

== ENCOUNTER 2024-05-08 08:34 | Outpatient (CLI) | payer MEDICARE, SELFPAY ==
--- NOTE | ~2024-05-08 | MR_ITS ---
EXAMINATION: MR thoracic spine wo con DATE: 05/08/2024 09:44 INDICATION: Mid back pain. Age-related osteoporosis. TECHNIQUE: Magnetic resonance imaging (MRI) of the thoracic spine was performed without intravenous c ontrast. COMPARISON: Thoracic spine radiographs 05/02/2024, chest 2 views 04/03/2023 FINDINGS: There is 7 degrees dextrocurvature of thoracic spine and 19 degrees levoscoliosis of thorac olumbar spine. There is a burst fracture of T7 with 3/5 loss of height, retropulsion of bone 3 mm int o central spinal canal, and edema-like marrow signal intensity.. There is moderately decreased disc h eight at T8-T9 and severely decreased disc height at T12-L1. At T4-T5, there is a central extrusion w ith mild central canal stenosis and ventral indentation of the spinal cord. At T8-T9, the disc is bul ging with mild central canal stenosis. At T11-T12, the disc is bulging with mild central canal stenos is. At T12-L1, the disc is bulging with mild central canal stenosis. There is multilevel facet joint osteoarthritis, severe at several levels. There is multilevel mild neural foraminal stenosis on eithe r side. On the left, there is moderate neural foraminal stenosis at T7-T8 and T8-T9. The spinal cord signal intensity is normal. IMPRESSION: 1. Acute versus subacute T7 burst fracture. 2. Moderate thoracic spondylosis. 3. Thoracolumbar levoscoliosis. Reviewed, dictated and finalized at location A. TEACHER
== END 2024-05-08 08:35 | disposition home or self-care (01) ==
LOC: MICIMG 08:35
PROVIDERS: PCP Nurse Practitioner Family; Visit Provider Nurse Practitioner Family
DX: M81.0 Age-related osteoporosis without current pathological fracture (principal); M47.894 Other spondylosis, thoracic region
CPT/HCPCS: 72146

== ENCOUNTER 2024-06-09 09:08 | Outpatient (CLI) | payer MEDICARE, SELFPAY ==
[2024-06-09 09:20] LABS: Eosinophils Absolute Auto 0.1 K/mm3 (0-0.3); Hematocrit 38.7 % (37.0-47.0); Hemoglobin 10.2 g/dL (12.0-15.0); Immature Granulocyte Absolute 0.59 K/mm3 (0.00-0.031); Immature Granulocyte Percent A 0.2 % (0-0.5); Lymphocytes Absolute Auto 264.08 K/mm3 (0.9-3.2); Lymphocytes Percent Auto 97.1 % (18.3-44.2); Mean Corpuscular HGB Conc 26.4 g/dl (32-36); Mean Corpuscular Hemoglobin 26.8 pg (26-34); Mean Corpuscular Volume 101.6 fl (80-100); Mean Platelet Volume 9.8 fl (7.4-10.4); Monocytes Absolute Auto 0.4 K/mm3 (0.1-0.6); Monocytes Percent Auto 0.2 % (2.6-8.5); Neutrophils Absolute Auto 6.7 K/mm3 (1.3-6.7); Neutrophils Percent Auto 2.5 % (45.5-73.1); Platelet Count Result 240 k/mm3 (150-375); Red Blood Count 3.81 M/mm3 (4.2-5.4)
[2024-06-09 09:22] LABS: White Blood Count 271.9 K/mm3 (4.5-10.0)
[2024-06-09 09:29] LABS: Atypical Lymphocytes Present; Platelet Estimate Adequate (Adequate); Schistocytes None Seen
[2024-06-09 10:18] LABS: Anion Gap 7 mmol/L (4-12); Blood Urea Nitrogen 19 mg/dL (7-17); Calcium 10.2 mg/dL (8.4-10.2); Carbon Dioxide 27 mmol/L (22-30); Chloride 101 mmol/L (98-107); Estimated Glomerular Filt Rate 52; Glucose 160 mg/dL (65-110); Potassium 4.6 mmol/L (3.4-5.0); Sodium 135 mmol/L (137-145)
--- OUTSIDE RECORDS SUMMARY | 2024-06-09 12:20 | XMS_ITS | Data Portability ---
Author Organization [place] [facility], Main Office Address [address] [place] [address] Assessment No assessment recorded. Plan of Treatment Reminders Order Date Submit Date Provider Last Modified By Organization Details Last Modified Time Details Appointments None record ed. Lab None record ed. Referral None record ed. Procedures None record ed. Surgeries None record ed. Imaging None record ed. Medication Orders None record ed. Patient TargetsNo targets recorded. Patient InstructionsNo instructions recorded. Reason for Referral None Reported. Results Created Date Observation Date Name Description Value Unit Range Abnormal Flag Note LastModifiedBy Organization Detail LastModifiedTime 01/17/20 21 01/16/2021 elect kaylan bingham am No observ ation record ed. [id number] _[facility]_[address], [place], [address], 08/26/2022 23:11:14 02/20/20 21 01/15/2021 elect kaylan bingham am No observ ation record ed. [id number] _[address], [place], [address], 08/26/2022 23:11:14 04/14/20 22 XR, lumbo sacra l spine , 2 or 3 view [facility] [address] [facility] [place] [address] Fernando t Name: SANDRA FORD Access ion #: [id number] Sex: F : 1935 4 Locati on: RA2 Attend ing Physic lynnette: ELKASANDRA IB, RUNDA Orderi ng Physic lynnette: ELTANIAAT IB, RUNDA Exam Date: 2021 8:59 AM Exam Name: XR L SPINE 2-3V Admitt ing Diagno sis(es ): RADIOL OGY REPORT - FINAL EXAM: XR L SPINE 2-3V HISTOR Y: Lower back pain x2 years COMPAR MARCELLA: None availa ble. TECHNI QUE: AP and latera l views of the lumbar spine and spot latera l of the lumbos acral juncti on were perfor med. FINDIN GS: No fractu re or destru ctive proces s. Severe multil evel degene rative change s noted throug hout the lumbar spine. 35 degree scolio sis convex right is noted at L3-4, 12 degree convex left scolio tic curvat ure noted at L2-3. Left femoro acetab ular joint osteoa rthrit ic residu als noted. Cholec ystect baldemar clips noted. Vascul ar calcif icatio ns noted along the length of the abdomi nal aorta Page 1 of 2 [facility] Patien t Name: SANDRA FORD Access ion #: [id number] Sex: F : 1935 4 Exam Date: 2021 8:59 AM Exam Name: XR L SPINE 2-3V Admitt ing Diagno sis(es ): extend ing the common iliac arteri es, no defini te aneury sm. IMPRES MERT: See above. Create d and electr onical ly signed by: Cricket chadwick MD Signed Date: 2021 9:15 AM (CT) Dictat ed by: Cricket chadwick MD DD: 2021 9:14 AM (CT) DT: 2021 9:14 AM (CT) Page 2 of 2 [id number] [facility] (Imaging) [address] [place] [address], [address], 08/26/2022 23:11:14 04/14/20 22 04/14/2022 XR, lumbo sacra l spine , 2 or 3 view No observ ation record ed. [id number] [facility] [place] [address] , [place], [address], 08/26/2022 23:11:14 06/15/20 22 06/15/2022 imagi ng/di agnos tic resul t No observ ation record ed. [id number] [place] [address] [address], [place], [address], 08/26/2022 23:11:14 06/15/20 22 06/15/2022 imagi ng/di agnos tic resul t No observ ation record ed. [id number] [place] [address] [address], [place], [address], 08/26/2022 23:11:14 06/23/20 22 06/23/2022 CT, abdom en + pelvi s, w/ contr ast No observ ation record ed. [id number] [place] [address], [place], [address], 08/26/2022 23:11:14 07/31/19 23 07/31/2022 CT, abdom en + pelvi s, w/ contr ast No observ ation record ed. [id number] [place] [address] [address], [place], [address], 08/26/2022 23:11:14 04/02/20 23 04/02/2023 XR, wrist , 3 or more view No observ ation record ed. [address], [place], [address], 04/05/2023 10:20:44 04/02/20 23 04/02/2023 XR, hip, bilat eral, 2 view No observ ation record ed. [address], [place], [address], 04/05/2023 10:22:37 04/02/20 23 04/02/2023 XR, femur , 2 or more view No observ ation record ed. [address], [place], [address], 04/05/2023 10:23:23 04/03/2004/03/2023 CT, hip, w/o contr ast No observ ation record ed. [address], [place], [address], 04/05/2023 10:24:12 04/03/2004/03/2023 XR, chest , 2 view No observ ation record ed. [address], [place], [address], 04/05/2023 10:25:09 04/05/20 23 04/05/2023 stres s echoc ardio gram No observ ation record ed. [address], [place], [address], 04/05/2023 15:52:26 04/05/2004/05/2023 XR, shoul maxim No observ ation record ed. [address], [place], [address], 04/05/2023 15:52:39 Result Notes None recorded. 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 Procedures Surgical History Date Name Laterality Status Provider Name and Address Organization Details Recorded Time Cataract Surgery completed Not Available [facility] 08/26/2022 23:06:17 cardiac catheterization completed Not Available [facility] 08/26/2022 23:06:17 colonoscopy completed Not Available [facility] 08/26/2022 23:06:17 dacryocystotomy completed Not Available [facility] 08/26/2022 23:06:17 Hysterectomy completed Not Available [facility] 08/26/2022 23:06:17 Cholecystectomy completed Not Available [facility] 08/26/2022 23:06:17 Imaging Results Imaging Date Name Status LastModified by Organization Details LastModified Time 06/23/2022 CT, abdomen + pelvis, w/ contrast completed [id number] [address], [place], [address], 08/26/2022 23:11:14 06/15/2022 imaging/diagnostic result completed [id number] [place] [address], [place], [address], 08/26/2022 23:11:14 06/15/2022 imaging/diagnostic result completed [id number] [place] [address], [place], [address], 08/26/2022 23:11:14 07/31/2022 CT, abdomen + pelvis, w/ contrast completed [id number] [facility] [address], [place], [address], 08/26/2022 23:11:14 01/16/2021 electrocardiogram completed MIGRATION. [id number] [facility] [address], [place], [address], 08/26/2022 23:11:14 01/15/2021 electrocardiogram completed MIGRATION. [id number] [facility] , [address], [place], [address], 08/26/2022 23:11:14 04/14/2022 XR, lumbosacral spine, 2 or 3 view completed [id number] [facility] (Im[facility]) [address] [facility], [place], [address], 08/26/2022 23:11:14 04/14/2022 XR, lumbosacral spine, 2 or 3 view completed [id number], [place], [address], 08/26/2022 23:11:14 04/02/2023 XR, wrist, 3 or more view completed [address], [address], 04/05/2023 10:20:44 04/02/2023 XR, hip, bilateral, 2 view completed [address], [address], 04/05/2023 10:22:37 04/02/2023 XR, femur, 2 or more view completed [address], [address], 04/05/2023 10:23:23 04/03/2023 CT, hip, w/o contrast completed [address], [address], 04/05/2023 10:24:12 04/03/2023 XR, chest, 2 view completed [address], [address], 04/05/2023 10:25:09 04/05/2023 stress echocardiogram completed [address], [address], 04/05/2023 15:52:26 04/05/2023 XR, shoulder completed [id number], [place], [address], 04/05/2023 15:52:39 Procedure Notes None recorded. Medical Equipment None Reported. Medications Name Sig Start Date Stop Date Status Note LastModified by Organization Details LastModified Time fluconazole 150 mg tablet TAKE 1 TABLET BY MOUTH ONCE DIRECTED active Not Available Not Available No t Available hydrocodone 5 mg-acetamin ophen 325 mg tablet TAKE 1 TABLET BY MOUTH EVERY 6 HOURS NEEDED FOR PAIN active Not Available Not Available No t Available metronidazo le 500 mg tablet TAKE 1 TABLET BY MOUTH EVERY 8 HOURS active Not Available Not Available No t Available ciprofloxac in 500 mg tablet TAKE 1 TABLET BY MOUTH EVERY 12 HOURS FOR 10 DAYS active Not Available Not Available No t Available phenazopyri dine 100 mg tablet TAKE 2 TABLETS BY MOUTH THREE TIMES DAILY FOR 2 DAYS 01/15 completed Not Available Not Available Not Available oxybutynin chloride ER 5 mg tablet,exte nded release 24 hr TAKE 1 TABLET BY MOUTH EVERY DAY active Not Available Not Available No t Available levofloxaci n 750 mg tablet TAKE 1 TABLET BY MOUTH DAILY active Not Available Not Available No t Available metoprolol tartrate 25 mg tablet TAKE 1/2 TABLET BY MOUTH TWICE DAILY active Not Available Not Available No t Available Vitamin C 2020 active Not Available Not Available Not Avai lable Vitamin D 2020 active Not Available Not Available Not Avai lable Memory Complex 2020 active Not Available Not Available Not Avai lable Eliquis 2.5 mg tablet TAKE 1 TABLET BY MOUTH TWICE DAILY active Not Available Not Available No t Available Vitals Date Recorded Body mass index (BMI) Body height Oxygen saturation Oxygen saturation in Arterial blood by Pulse oximetry Heart rate Body temperature Body weight Systolic blood pressure Diastolic blood pressure Provider Name and Address Organization Details Last Updated DateTime 1 27.8 kg/m2 147.32 cm 96 % 96 % 84 /min 97.3 [degF] 81645.7 9 g 116 mm[Hg] 76 mm[Hg] Not Available [facility] 3 23:08:21 Date Recorded Body mass index (BMI) Body height Oxygen saturation Oxygen saturation in Arterial blood by Pulse oximetry Heart rate Body temperature Body weight Systolic blood pressure Diastolic blood pressure Provider Name and Address Organization Details Last Updated DateTime 2 27.4 kg/m2 147.32 cm 98 % 98 % 113 /min 97.3 [degF] 47919.6 g 144 mm[Hg] 90 mm[Hg] Not Available [facility] 3 23:08:21 Date Recorded Body height Body mass index (BMI) Body weight Body temperature Heart rate Oxygen saturation Oxygen saturation in Arterial blood by Pulse oximetry Systolic blood pressure Diastolic blood pressure Provider Name and Address Organization Details Last Updated DateTime 3 147.32 cm 26.1 kg/m2 90362.0 5 g 98.7 [degF] 103 /min 98 % 98 % 130 mm[Hg] 80 mm[Hg] MARIELA Mckeon [place] [facility] [employer] 3 10:07:40 Social History Question Answer Notes LastModified by Organizat ion Details LastModified Time Tobacco Smoking Status Never Smoker Not Available [facility] 08/26/2022 23:06:07 What Is Your Level Of Alcohol Consumption? None [id number] Information not available 08/26/2022 In The 14 Days Before Symptom Onset, Have You Had Close Contact With A Laboratory-confirm ed COVID-19 While That Case Was Ill? No [id number] Information not available 08/26/2022 In The 14 Days Before Symptom Onset, Have You Had Close Contact With A Person Who Is Under Investigation For COVID-19 While That Person Was Ill? No [id number] Information not available 08/26/2022 Sex: Unknown Functional Status None recorded. Mental Status None recorded. Family History Relationship Description Onset Age of this Age Resolved Age Notes LastModified by Organization Details LastModified Time Father Calcificatio n of lung [id number] Not available 08/26/2022 23:06:23 Father Malignant tumor of lung [id number] Not available 08/26/2022 23:06:23 Mother Aneurysm [id number] Not available 08/26/2022 23:06:23 Medical History Condition Response BLINDNESS N RHEUMATIC FEVER N BLADDER PROBLEMS N KIDNEY STONES N MRSA N OTHER # 1 N POLIO N LUNG DISEASE/DISORDER N HISTORY OF DRUG ABUSE N RADIATION / CHEMOTHERAPY N COPD N Other # 2 N BLOOD DISEASES N SURGERY N EAR OR HEARING PROBLEMS Y MUMPS N SHINGLES N FEMALE PROBLEMS / INFECTIONS N DEPRESSION (INCLUDING POST ) N BOWEL PROBLEMS N STROKE/TIA N THYROID DISEASE N ULCERS N BENIGN PROSTATIC HYPERPLASIA N MEASLES N CERVICALGIA N TB SKIN TEST N HYPOTENSION N MYOCARDIAL INFARCTION N PARAPELGIA N OBESITY N GERD/NAUSEA N ANEURYSM N URINARY/BLADDER/KIDNEY PROBLEMS Y CORONARY ARTERY DISEASE (CAD) N MENIERE'S DISEASE N ADDICTION CONCERNS N ENDOMETRIOSIS N USE OF BLOOD THINNERS N SKIN PROBLEMS N EMPHYSEMA N GASTROINTESTINAL DISORDER N MUSCLE,JOINT OR BONE PROBLEMS N GASTROINTESTINAL BLEEDING N BLOOD CLOTS N ASTHMA N CATARACTS Y ERECTILE DYSFUNCTION N GI PROBLEMS N CHF N Low Testosterone N NEUROPATHY N INFERTILITY N AIDS/HIV N FRACTURES N CHEMOTHERAPY / RADIATION N VISION/EYE PROBLEMS N LIVER DISEASE N MALE HYPOGONADISM N HYPERTENSION N TOURETTE'S N ANXIETY DISORDER N BLOOD TRANSFUSION N ANEMIA/BLOOD DISORDER N CHRONIC EAR INFECTIONS N BRONCHITIS Y TUBERCULOSIS N GLAUCOMA N FOOT PROBLEM N DIVERTICULITIS N SLEEP APNEA N CHICKENPOX N ALLERGIES/HAYFEVER N INFECTIOUS DISEASE N PROSTATE N HEART ARRHYTHMIA N INSOMNIA N HIGH CHOLESTEROL / HYPERLIPIDEMIA N EYE PROBLEMS N HYPERTHYROIDISM N EATING DISORDER N EDEMA N CHRONIC PAIN SYNDROME N CAROTID BLOCKAGE N CONSTIPATION N BACK / NECK PROBLEMS N HAVE YOU BEEN HOSPITALIZED OR SEEN IN [facility] IN THE PAST YEAR ? N ATHEROSCLEROSIS N BREAST PROBLEMS N DIALYSIS N ECZEMA N FIBROMYALGIA N OSTEOPOROSIS N ARTHRITIS N NO SIGNIFICANT PAST MEDICAL HISTORY N APPENDICITIS N DIABETES, TYPE N BAD TEETH N HEARTBURN / REFLUX N ADD/ADHD N AUTISM SPECTRUM DISORDER (ASD) N HEPATITIS / LIVER DISEASE N PULMONARY DISEASE N GOUT N SLEEP DISORDER N ALZHEIMER'S DISEASE N PAIN N DEMENTIA N HERPES N SEIZURES/EPILEPSY N HEADACHES/MIGRAINES N VASCULAR DISEASE N PACEMAKER N DIZZINESS N HEART DISEASE/HEART PROBLEMS N KIDNEY DISEASE N SCARLET FEVER N MULTIPLE SCLEROSIS N DEVELOPMENTAL OR BEHAVIORAL DISORDERS N MENTAL DISORDER/ILLNESS N CANCER: SPECIFY N CARDIAC ARRHYTHMIA N PNEUMONIA N ATRIAL FIBRILLATION N Gall Stones Y PULMONARY EMBOLISM N AUTOIMMUNE DISEASE N Gynecological HistoryNo gynecological history recorded. Obstetrics History GPAL:G 0 P 0 0 0 0 Past Encounters Encounter ID Performer Location Encounter Start Date Encounter Closed Date Diagnosis/Indication Diagnosis SNOMED-CT Code Diagnosis ICD10 Code [id number] [facility] price [address] [place] [address] 01/15/2021 00:00:00 01/16/2021 06:41:22 [id number] [facility] [address] [place] [address] 04/14/2022 00:00:00 04/14/2022 12:21:36 [id number] Georgette Campuzano MD [facility] [address] [place] [address] 10/14/2022 09:54:33 10/14/2022 10:29:47 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.3 Chronic ly mphoid leukemia, disease 23836518 C91.10 Health Concerns Section Related Observation LastModified by Organization Detai ls LastModified Time None Recorded Concern Status LastModified by Organization Details LastModified Time None Recorded Advance Directives Directive None Recorded Payers Encounter Date Sequence Insurance Name Policy Number Policy Lua Covered Member ID Lua Member ID Guarantor Name 10/14/2022 1 [employer] (MEDICARE REPLACEMENT PPO) [id number] Sandra Ford [id number] Sandra Ford Notes Date Note Type Note Provider Name and Address Organization Details Recorded Time 10/14/2022 text/html Here for f/u of hospitalization in 06/18. Takes care of herself and as long as feels fine can wait on any surgery. She has a fistula. Needs to have a coloectomy and fistula repair if sxs return. So far she is having no pain. has a slight clear vaginal discharge very slight. Georgette Campuzano MD [address] [place] [address] [address], [place], [address], [facility] 10/14/2022 10:45:32 OBGyn Episode No OBEpisode recorded.
== END 2024-06-09 09:09 | disposition home or self-care (01) ==
PROVIDERS: PCP Nurse Practitioner Family; Visit Provider Internal Medicine Hematology & Oncology
DX: C91.10 Chronic lymphocytic leukemia of B-cell type not having achieved remission (principal)
CPT/HCPCS: 36415; 80048; 85025

== ENCOUNTER 2024-06-12 10:03 | Outpatient (CLI) | payer MEDICARE, SELFPAY ==
--- NOTE | ~2024-06-12 | XR_ITS ---
3 VIEWS THORACIC SPINE Ordering provider: Susan Foster, BILLING REP History: . Thoracic back pain . Comparison: May 02, 2024 FINDINGS: VERTEBRAL BODIES: Compression fractures seen in T8 and T9 with loss of volume most 70% in T8 and 50% in T9. This may be acute or chronic. MRI is advised.. Levoscoliosis in the thoracolumbar area. Degene rative changes of the spine. DISK SPACES: Narrowing of T7-T8, T8-T9 and T10. Multilevel degenerative disc disease. SOFT TISSUES: Normal. IMPRESSION: Multilevel compression fracture. MRI evaluation advised. Multilevel degenerative disc disease. Reviewed, dictated and finalized at location A. CAR LOADER
== END 2024-06-12 10:04 | disposition home or self-care (01) ==
LOC: MICIMG 10:05
PROVIDERS: PCP Nurse Practitioner Family; Visit Provider Nurse Practitioner Family
DX: M51.24 Other intervertebral disc displacement, thoracic region (principal)
CPT/HCPCS: 72072

== ENCOUNTER 2024-06-27 09:50 | Outpatient (CLI) | payer MEDICARE, SELFPAY ==
--- NOTE | ~2024-06-27 | MR_ITS ---
MRI of the thoracic spine Clinical History: Fracture Technique: Axial T2-weighted and gradient images, and sagittal T1-weighted, T2-weighted, and STIR rayne ges were acquired. COMPARISON: 05/08/2024 Findings: Subacute severe compression fracture of T7 is again present, with mild residual marrow destiny a and severe loss of height. There is a new acute, mild compression fracture of T8, mild loss of heig ht extensive marrow edema with T1 hypointense fracture line. Probable minimal loss of height in the s uperior endplate region of T10 and, new from prior exam. No other fracture or sublocation. No definite underlying metastatic lesion evident. There is probable bilateral neural foraminal narrowing at T7-T8 and T8-T9. Remaining neural foramina appear well-preserved throughout the thoracic spine. No spinal canal stenosis or cord compression parker dent. Paravertebral soft tissues are unremarkable. Impression: New acute, mild compression fracture of T8. Probable minimal compression fracture of T10, new from prior exam. Stable severe T7 compression fracture with mild residual marrow edema (subacute). Reviewed, dictated and finalized at location M. NICIAN SUPPORT ENGINEER Impression: New acute, mild compression fracture of T8. Probable minimal compression fracture of T10, new from prior exam. Stable severe T7 compression fracture with mild residual marrow edema (subacute ).
== END 2024-06-27 09:51 | disposition home or self-care (01) ==
LOC: MICIMG 09:50
PROVIDERS: PCP Nurse Practitioner Family; Visit Provider Nurse Practitioner Family
DX: M48.54XA Collapsed vertebra, not elsewhere classified, thoracic region, initial encounter for fracture (principal)
CPT/HCPCS: 72146

== ENCOUNTER 2024-06-29 14:36 | Emergency (ER) | payer MEDICARE, SELFPAY ==
[2024-06-29 15:15] VITALS: BP 114/80; PULSE 87; RESP 16; TEMP 36.6; O2SAT 99
--- NOTE | 2024-06-29 15:22 | ED_ITS ---
HPI - Back Pain/Injury General Chief Complaint: Back Pain/Injury Stated Complaint: increased back pain, T7,8,9,10 fx Focused HPI: 88-year-old female with chronic back pain presents to emergency department for back pain. Patient states she has been having back pain since February 2024. She has had outpatient imaging performed which vertebral compression fractures. Patient has been following with [facility] for pain management. States she had an MRI ordered on Wednesday of this week which showed 3 more compression fractures. Patient has been taking hydrocodone 10 mg without improvement. She has a history of CLL, sees Dr. Gibson for this. She is currently on chemo pills. Pt son is at bedside. Denies bowel or bladder incontinence, urinary retention, saddle anesthesia. Recent MRI results show: New acute, mild compression fracture of T8. Probable minimal compression fracture of T10, new from prior exam. Stable severe T7 compression fracture with mild residual marrow edema (subacute). GENERAL: Well-appearing, well-nourished, and in no acute distress. Wearing back brace HEAD: Normocephalic, atraumatic. CHEST: Clear to auscultation. ?No respiratory distress. HEART: Regular rate and rhythm.? NEURO: ?Alert and oriented x3. Patient screened in triage and initial orders placed.? ?Additional care and disposition to be based upon?diagnostic testing and treatment. Related Data Home Medications ?Medication ?Instructions ?Recorded ?Confirmed ?Last Taken ?Type ascorbic acid (vitamin C) 100 mg 100 mg PO DAILY 03/17/23 01/12/24 04/02/23 History chewable tablet ferrous sulfate 325 mg (65 mg 325 mg PO DAILY 03/17/23 01/12/24 04/02/23 History iron) tablet (iron) omega-3 150 sl-ava-pur-fish oil 1 cap PO DAILY 03/17/23 01/12/24 1 Week Ago History 500 mg-D3 200 unit capsule,delayed ~12/10/23 rel ([place]-3 Plus Vitamin D3) tdiqnktq-ryus-dnlfq acid 240 1 tablet PO DAILY 04/02/23 01/12/24 04/02/23 History mcg-vit K 120 cvb-kkncpk-jfni 293 tablet (Alive Women's 50 Plus (fruit-veg blend)) metoprolol tartrate 25 mg tablet 25 mg PO BID 10/29/23 01/12/2424 History cyanocobalamin (vitamin B-12) 1,000 mcg PO DAILY 12/08/23 01/12/24 Unknown History 1,000 mcg tablet Allergies Allergy/AdvReac Type Severity Reaction Status Date / Time tetracycline Allergy Unknown Unknown Verified 01/12/24 09:43 [facility] Past Medical History Medical History Bacteremia due to Klebsiella pneumoniae Chronic anemia Chronic lymphocytic leukemia CLL (chronic lymphocytic leukemia) Closed fracture of greater trochanter of left femur History of UTI Hypertension Mild aortic stenosis Mild pulmonary hypertension Moderate mitral regurgitation Occult blood in stools Surgical History Surgical History H/O cataract extraction History of colonoscopy with polypectomy History of laparoscopic cholecystectomy History of total abdominal hysterectomy Family History Family History Father Family history of lung cancer Patient's father is Mother Patient's mother is Social History Social History Social History: She is and lives home alone. She has 3 children. 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 She has never smoked. She worked for [employer]. No alcohol marijuana or illicit drugs. Code status full code Smoking status: Never smoker Second hand tobacco smoke exposure: Yes Alcohol intake: never Substance use: never Substance use type: does not use Do You Feel Safe in your Home?: Yes Lack of Transportation: No Lack of Food: Never True Current Housing: I Have Housing Concerned About Future Housing: No Difficulty Paying Gas/Electric Bills: No Difficulty Paying for Meds: No Currently Unemployed: No Education: High School Diploma/GED Difficulty w/ Childcare or Family Care: No Living arrangements: alone Occupation/Education: retired Gender identity (if verbalized by the patient): Female Spiritual care concerns: No Course Vital Signs Vital signs: Vital Signs Temperature 97.8 F 06/29/24 15:15 Pulse Rate 87 06/29/24 15:15 Respiratory Rate 16 06/29/24 15:15 Blood Pressure 114/80 06/29/24 15:15 Pulse Oximetry 99 06/29/24 15:15 Oxygen Delivery Room Air 06/29/24 15:15 Temperature 97.3 F L 06/29/24 17:44 Pulse Rate 81 06/29/24 17:44 Respiratory Rate 18 06/29/24 17:44 Blood Pressure 147/82 H 06/29/24 17:44 Pulse Oximetry 98 06/29/24 17:44 Oxygen Delivery Room Air 06/29/24 15:15 MDM - Back Pain/Injury Lab Data 06/29/24 16:14 06/29/24 16:14 Labs: Lab Results 06/29/24 Range/Units 16:14 WBC 222.3 H* (4.5-10.0) K/mm3 RBC 3.13 L (4.2-5.4) M/mm3 Hgb 8.7 L (12.0-15.0) g/dL Hct 31.7 L (37.0-47.0) % MCV 101.3 H (80-100) fl MCH 27.8 (26-34) pg MCHC 27.4 L (32-36) g/dl RDW 20.6 H (11.5-14.5) % Plt Count 211 (150-375) k/mm3 MPV 9.8 (7.4-10.4) fl Immature Gran % (Auto) Not Reportable Neut % (Auto) Not Reportable Lymph % (Auto) Not Reportable [place] % (Auto) Not Reportable Eos % (Auto) Not Reportable Baso % (Auto) Not Reportable Lymph # (Auto) Not Reportable [place] # (Auto) Not Reportable Eos # (Auto) Not Reportable Baso # (Auto) Not Reportable Abs Immat Gran (auto) Not Reportable Absolute Neuts (auto) Not Reportable Absolute Nucleated RBC Not Reportable Total Counted 100 Neutrophils % (Manual) 3 L (46-73) % Lymphocytes % (Manual) 97 H (18-44) % Nucleated RBC % Not Reportable Abs Lymphs (Manual) 215.63 H (1.1-4.5) K/mm3 Atypical Lymphocytes Present Smudge Cells Present Platelet Estimate Adequate (Adequate) Ovalocytes 1+ Schistocytes None seen Sodium 134 L (137-145) mmol/L Potassium 4.2 (3.4-5.0) mmol/L Chloride 105 (98-107) mmol/L Carbon Dioxide 27 (22-30) mmol/L Anion Gap 2 L (4-12) mmol/L BUN 16 (7-17) mg/dL Creatinine 0.90 (0.7-1.0) mg/dL Estim Creat Clear Calc Not Reportable Estimated GFR 59 (59 - ) Glucose 126 H (65-110) mg/dL Calcium 9.3 (8.4-10.2) mg/dL Total Bilirubin 1.4 H (0.2-1.3) mg/dL AST 20 (14-36) U/L ALT 7 (6-35) U/L Alkaline Phosphatase 65 (38-126) U/L Total Protein 7.0 (6.3-8.2) g/dL Albumin 3.7 (3.5-5.1) g/dL Discharge Plan Discharge Clinical Impression: Acute on chronic back pain Patient Disposition: Left Without Being Seen Patient Language: Arabic Prescriptions: No Action ferrous sulfate [iron] 325 mg (65 mg iron) tablet 325 mg PO DAILY ascorbic acid (vitamin C) 100 mg tablet,chewable 100 mg PO DAILY [place]-3 Plus Vitamin D3 150-500-200 mg-mg-unit capsule,delayed release(DR/EC) 1 cap PO DAILY cyanocobalamin (vitamin B-12) 1,000 mcg Tablet 1,000 mcg PO DAILY Alive Women's 50 Plus (blend) 240-120-300 mcg Tablet 1 tablet PO DAILY Eliquis 2.5 mg Tablet 2.5 mg PO Q12HR Qty: 60 0RF metoprolol tartrate 25 mg tablet 25 mg PO BID Follow-up/Referrals: Kristin,GALILEA Davis [Primary Care Provider] -
[2024-06-29 16:26] LABS: Hematocrit 31.7 % (37.0-47.0); Hemoglobin 8.7 g/dL (12.0-15.0); Mean Corpuscular HGB Conc 27.4 g/dl (32-36); Mean Corpuscular Hemoglobin 27.8 pg (26-34); Mean Corpuscular Volume 101.3 fl (80-100); Mean Platelet Volume 9.8 fl (7.4-10.4); Platelet Count Result 211 k/mm3 (150-375); Red Blood Count 3.13 M/mm3 (4.2-5.4); Red Cell Distribution Width 20.6 % (11.5-14.5)
[2024-06-29 16:29] LABS: White Blood Count 222.3 K/mm3 (4.5-10.0)
[2024-06-29 16:36] LABS: Alanine Aminotransferase 7 U/L (6-35); Albumin Level 3.7 g/dL (3.5-5.1); Alkaline Phosphatase 65 U/L (38-126); Anion Gap 2 mmol/L (4-12); Aspartate Amino Transferase 20 U/L (14-36); Bilirubin,Total 1.4 mg/dL (0.2-1.3); Blood Urea Nitrogen 16 mg/dL (7-17); Calcium 9.3 mg/dL (8.4-10.2); Carbon Dioxide 27 mmol/L (22-30); Chloride 105 mmol/L (98-107); Estimated Glomerular Filt Rate 59; Glucose 126 mg/dL (65-110); Potassium 4.2 mmol/L (3.4-5.0); Sodium 134 mmol/L (137-145)
[2024-06-29 16:54] LABS: Total Cells Counted 100
[2024-06-29 16:55] LABS: Lymphocytes Absolute Manual 215.63 K/mm3 (1.1-4.5); Lymphocytes Percent Manual 97 % (18-44); Neutrophils Percent Manual 3 % (46-73); Platelet Estimate Adequate (Adequate)
[2024-06-29 16:56] LABS: Smudge Cells PRESENT
[2024-06-29 16:57] LABS: Atypical Lymphocytes Present; Ovalocytes 1+; Schistocytes None Seen
[2024-06-29 17:44] VITALS: BP 147/82; PULSE 81; RESP 18; TEMP 36.3; O2SAT 98
== END 2024-06-29 21:15 | disposition left against medical advice (07) ==
PROVIDERS: Emergency Provider Physician Assistant; PCP Nurse Practitioner Family
DX: M54.9 Dorsalgia, unspecified (principal)
CPT/HCPCS: 36415; 80053; 85025; 99199

== ENCOUNTER 2024-07-14 10:14 | Outpatient (CLI) | payer MEDICARE, SELFPAY ==
[2024-07-14 10:40] LABS: Eosinophils Absolute Auto 0.3 K/mm3 (0-0.3); Eosinophils Percent Auto 0.1 % (0-4.4); Hematocrit 34.1 % (37.0-47.0); Hemoglobin 9.3 g/dL (12.0-15.0); Immature Granulocyte Absolute 0.38 K/mm3 (0.00-0.031); Immature Granulocyte Percent A 0.2 % (0-0.5); Immature Platelet Fraction Pct 4.9 % (0.9-11.2); Lymphocytes Absolute Auto 217.02 K/mm3 (0.9-3.2); Lymphocytes Percent Auto 96.9 % (18.3-44.2); Mean Corpuscular HGB Conc 27.3 g/dl (32-36); Mean Corpuscular Hemoglobin 27.8 pg (26-34); Mean Corpuscular Volume 101.8 fl (80-100); Mean Platelet Volume 9.9 fl (7.4-10.4); Monocytes Absolute Auto 0.3 K/mm3 (0.1-0.6); Monocytes Percent Auto 0.1 % (2.6-8.5); Neutrophils Absolute Auto 5.9 K/mm3 (1.3-6.7); Neutrophils Percent Auto 2.7 % (45.5-73.1); Platelet Count Result 249 k/mm3 (150-375); Red Blood Count 3.35 M/mm3 (4.2-5.4); Red Cell Distribution Width 19.9 % (11.5-14.5)
[2024-07-14 10:41] LABS: White Blood Count 223.9 K/mm3 (4.5-10.0)
[2024-07-14 11:06] LABS: Anion Gap 6 mmol/L (4-12); Blood Urea Nitrogen 15 mg/dL (7-17); Calcium 9.3 mg/dL (8.4-10.2); Carbon Dioxide 28 mmol/L (22-30); Chloride 103 mmol/L (98-107); Estimated Glomerular Filt Rate 59; Glucose 104 mg/dL (65-110); Potassium 3.7 mmol/L (3.4-5.0); Sodium 137 mmol/L (137-145)
--- OUTSIDE RECORDS SUMMARY | 2024-07-20 06:20 | XMS_ITS | Clinical Summary ---
Author Organization [facility] [address] Address [address] [place] [address] Care Team Providers Care Probate Clerk Name Role Phone Eliseo Waters DO Primary Care Provider [phone] Allergies No known active allergies Medications Eliquis 2.5 mg tablet TAKE 1 TABLET(2.5 MG) BY MOUTH TWICE DAILY 60 tablet 11 023 Active ferrous sulfate (FeroSuL) 325 mg (65 mg of elemental iron) tablet 1 tablet DAILY (route: oral) 023 Active ascorbic acid (VITAMIN C) 100 mg tablet Vitamin C Active multivit-min -iron-FA-vit K-lut (Multivitami n Women 50 Plus) 8 mg iron-400 mcg-50 mcg tablet Take 1 tablet by mouth daily Active cyanocobalam in (Vitamin B-12) 1,000 mcg sublingual tablet Take 1 tablet (1,000 mcg total) by mouth daily Active aspirin 81 mg enteric coated tablet Take 1 tablet (81 mg total) by mouth daily Act debby cholecalcife rol (Delta D3) 400 unit capsule 08/08/2014Vitamin d, po solid 400 unit TabletPOdailyCurrent Medication 015 Active folic acid (FOLVITE) 800 mcg tablet 08/08/2014Folic acid, po solid 0.8 mg TabletPOdailyCurrent Medication 015 Active HYDROcodone- acetaminophe n (NORCO) 5-325 mg per tablet Take by mouth every 6 (six) hours as needed Act debby lisinopriL (PRINIVIL,ZE STRIL) 5 mg tablet 08/08/2014Lisinopril, po solid 5 mg TabletPOdailyCurrent Medication 015 Active oxyBUTYnin XL (DITROPAN-XL ) 5 mg 24 hr tablet Take 1 tablet (5 mg total) by mouth daily Act debby traMADoL (ULTRAM) 50 mg tablet Take 1 tablet (50 mg total) by mouth every 8 (eight) hours as needed for pain for up to 7 days 21 tablet 024 Active metoprolol tartrate (LOPRESSOR) 25 mg immediate release tablet TAKE 1 TABLET(25 MG) BY MOUTH TWICE DAILY 180 tablet 025 Active metoprolol tartrate (LOPRESSOR) 25 mg immediate release tablet Take 1 tablet (25 mg total) by mouth 2 (two) times a day 180 tablet 024 07/10 Discontinued Active Problems Problem Noted Date Diagnosed Date Chronic anticoagulation 09/16/2023 Nonrheumatic aortic valve stenosis 09/16/2023 Paroxysmal atrial fibrillation (CMS/HCC) 023 Nonrheumatic mitral valve regurgitation 06/02/20 23 Nonrheumatic tricuspid valve regurgitation 06/02 Hospital discharge follow-up 06/02/2023 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 Leukemia 01/15/2021 CLL (chronic lymphocytic leukemia) 08/08/2014 Encounters Date Type Department Care Team Description 07/17/2024 8:00 AM INDUSTRIAL MANAGEMENT TEACHER - 07/17/2024 11:59 PM INDUSTRIAL MANAGEMENT TE[place] [address] Discharge Disposition: Discharge to home or self care from Last 3 Months Surgical History Surgery Date Site/Laterality Comments FEMUR SURGERY Medical History Medical History Date Comments Hypertension Family History Medical History Relation Name Comments No Known Problems Brother 2 Lung disease Father No Known Problems Mother Relation Name Status Comments Brother 1 Alive Brother 2 Father Mother Social History Tobacco Use Types Packs/Day Years Used Date Smoking Tobacco: Never Tobacco Cessation:Counseling Given: Not Answered Comments Unknown Sex and Gender Information Value Date Recorded Sex Assigned at Not on file Legal Sex Female 11:42 PM INDUSTRIAL MANAGEMENT TEACHER Gender Identity Not on file Sexual Orientation Not on file Obstetrics History Last Filed Vital Signs Vital Sign Reading Time Taken Comments Blood Pressure 124/64 04/12/2024 9:54 AM CDT Pulse 70 04/12/2024 9:54 AM CDT Temperature 36.7 ??C (98 ??F) 03/13/2024 3:28 PM CDT Respiratory Rate 16 03/13/2024 3:28 PM CDT Oxygen Saturation 96% 04/12/2024 9:54 AM CDT Inhaled Oxygen Concentration - - Weight 53.5 kg (118 lb) 04/12/2024 9:54 AM CDT Height 147.3 cm (4' 10 ) 04/12/2024 9:54 AM CDT Body Mass Index 24.66 04/12/2024 9:54 AM CDT Plan of Treatment Health Maintenance Due Date Last Done Comments Depression Screening 1935 Fall Risk Assessment 1935 Hepatitis B Screening 09[birth year]16/1953 Zoster Vaccine (1 of 2) 09/16/1954 Well Visit 65+ 09/16/2000 Covid-19 Vaccine (2023- 5 season) 2024 03/15/2023, 03/10/2022, 09/25/2021, Additional history exists Influenza Vaccine (#1) 2024 , 03/10/2022, 02/11/2021, Additional history exists DTaP/Tdap/Td Vaccine (2 - Td or Tdap) 05/29/2025 05/29/2015 Pneumococcal vaccine 65+ Completed 023, 11/01/2017, 03/23/2015 Procedures Procedure Name Priority Date/Time Associated Diagnosis Comments SURGICAL PATHOLOGY Routine 07/17/2024 9: 46 AM INDUSTRIAL MANAGEMENT TEACHER from Last 3 Months Results * Surgical pathology (07/17/2024 9:46 AM INDUSTRIAL MANAGEMENT TEACHER) Bone - Biopsy / Curettings 07/17/2024 9:46 AM INDUSTRIAL MANAGEMENT TEACHER 07/18/2024 9:46 AM INDUSTRIAL MANAGEMENT TEACHER Narrative 07/19/2024 10:43 PM INDUSTRIAL MANAGEMENT TEACHER [facility] results best viewed via link to PDF [facility] Department of Pathology [address] [place] [id number] Note to Patients: This report may contain a detailed description of human tissue sent by a health care provider to the laboratory for pathologic evaluation. The content of this report is essential for diagnosis and may provide important critical findings. This information may be unfamiliar to patients to review without a medical professional present. It is advised that the patient review this report in the presence of a health care provider who can answer questions and explain the details. Final Report Patient Name: ??SANDRA FORDPiotr Address: ??[address], ??[place], [place] [address] Gender: ??F : ??1935 (Age: 88) Service: ?? Location: ?? Hospital #: ??[id number] Patient Type: ?? SPECIMEN Accession # ?[id number] Taken: ??07/17/2024 Received: ??07/18/2024 Accessioned: ??07/18/2024 Reported: ??07/19/2024 Physician(s):Ke Velazquez M.D. Diagnosis: A. T8 vertebral body, biopsy: ? - Fragment of bone with hematopoietic elements and crushed lymphocytic aggregates (see microscopic description) B. T10 vertebral body, biopsy: ? - Atypical lymphoid infiltrate ? - see microscopic description Gael Coughlin M.D. Report Electronically Reviewed and Signed Out By ??Gael Coughlin M.D. ??07/19/2024 22:43:28 Specimen(s) Received: A: T8 vertebral body bx B: T10 vertebral body bx Microscopic Description: Microscopic examination substantiates the above diagnosis.Appropriately controlled immunostain performed for AE1/AE3 on parts A and B is negative for metastatic carcinoma. Part A: Histologic sections demonstrate small lymphocytic aggregates with extensive crushed artifact, difficult to evaluate morphologically. Additionally see, part B. Part B: The histologic sections of the submitted vertebral body demonstrate atypical lymphoid infiltrate predominantly of small mature lymphocytes. Appropriately controlled immunostains show the atypical lymphocytes to be positive for CD20, CD5 and negative for CD3, CD10 and BCL6. 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 The case will be sent out for an expert consultation and the final diagnosis will be reported in an addendum. Clinical and radiologic correlation is recommended. Clinical History: T8 & T10 vertebral fx Procedure: T8 & T10 kyphoplasty - T8 & T10 vertebral body bx Gross Description: The specimen is submitted in two formalin containers labeled SANDRA FORD . Edie ??The first container is labeled T8 vertebral body . It is 1 core of riojas bone measuring 7 mm. ??The specimen is decalcified.. All in A. B. ??The second container is labeled T10 vertebral body . It is 1 core of riojas tissue measuring 8 mm. ??The specimen is decalcified.. All in B. T.A. Chayito Hernandez P.A./Trice Harvey M.D. REPORT IMAGES AND SCANNED DOCUMENTS, IF INCLUDED, ONLY VIEWABLE IN PDF VERSION OF REPORT The performance characteristics of some immunohistochemical stains, fluorescence in-situ hybridization tests and immunophenotyping by flow cytometry cited in this report (if any) were determined by the Surgical Pathology Department at [facility] as part of an ongoing quality control coordinator program and in compliance with federally mandated regulations drawn from the Clinical Laboratory Improvement Act of 1988 (CLIA '88). ??Some of these tests rely on the use of analyte specific reagents and are subject to specific labeling requirements by the US Food and Drug Administration. ??Such diagnostic tests may only be performed in a facility that is certified by the Department of Health and Human Services as a high complexity laboratory under CLIA '88. The FDA has determined that such clearance or approval is not necessary. ??This test is used for clinical purposes. ??It should not be regarded as investigational or for research. ??Nevertheless, federal rules concerning the medical use of analyte specific reagents require that the following disclaimer be attached to the report: This test was developed and its performance characteristics determined by the Surgical Pathology Department [facility]. ??It has not been cleared or approved by the U. S. Food and Drug Administration. Note for decalcified specimens: This assay has not been validated on decalcified tissues. Results should be interpreted with caution given the possibility of false negativity on decalcified specimens Nichole Velazquez MD LAB PATHOLOGY ORDERABLES F inal Result from Last 3 Months Insurance [employer] MEDICARE Care Teams Probate Clerk Relationship Specialty Start Date End Date Eliseo Waters DO PCP - General Internal Medicine 09/16/23
--- OUTSIDE RECORDS SUMMARY | 2024-07-20 06:20 | XMS_ITS | Data Portability ---
Author Organization [place] - [facility], Main Office Address [address] [place] [address] Assessment No assessment recorded. Plan of Treatment [...] bingham am No observ ation record ed. [id number] _[facility]_[address], [place], [address], 08/26/2022 23:11:14 02/20/20 21 01/15/2021 elect kaylan bingham am No observ ation record ed. [id number] _[address], [place], [address], 08/26/2022 23:11:14 04/14/20 22 XR, lumbo sacra l spine , 2 or 3 view [facility] [address] [facility] [place] [address] Fernando t Name: SANDRA FORD Access ion #: [id number] Sex: F : 1935 4 Locati [...] t Name: SANDRA FORD Access ion #: [id number] Sex: F : 1935 4 Exam [...] 9:14 AM (CT) Page 2 of 2 [id number] [facility] (Imaging) [address] [place] [address], [address], 08/26/2022 23:11:14 04/14/20 22 04/14/2022 XR, lumbo sacra l spine , 2 or 3 view No observ ation record ed. [id number] [facility] [address] , [place], [address], 08/26/2022 23:11:14 06/15/20 22 06/15/2022 imagi ng/di agnos tic resul t No observ ation record ed. [id number] [place] [address] [address], [place], [address], 08/26/2022 23:11:14 06/15/20 22 06/15/2022 imagi ng/di agnos tic resul t No observ ation record ed. [id number] [place] [address] [address], [place], [address], 08/26/2022 23:11:14 06/23/20 22 06/23/2022 CT, abdom en + pelvi s, w/ contr ast No observ ation record ed. [id number] [place] [address], [place], [address], 08/26/2022 23:11:14 07/31/19 23 07/31/2022 CT, abdom en + pelvi s, w/ contr ast No observ ation record ed. [id number] [place] [address] [address], [place], [address], 08/26/2022 23:11:14 04/02/20 23 04/02/2023 XR, wrist , 3 or more view No observ ation record ed. [address], [place], [address], 04/05/2023 10:20:44 04/02/20 23 04/02/2023 XR, hip, bilat eral, 2 view No observ ation record ed. [address], [place], [address], 04/05/2023 10:22:37 04/02/20 23 04/02/2023 XR, femur , 2 or more view No observ ation record ed. [address], [place], [address], 04/05/2023 10:23:23 04/03/2004/03/2023 CT, hip, w/o contr ast No observ ation record ed. [address], [place], [address], 04/05/2023 10:24:12 04/03/2004/03/2023 XR, chest , 2 view No observ ation record ed. [address], [place], [address], 04/05/2023 10:25:09 04/05/20 23 04/05/2023 stres s echoc ardio gram No observ ation record ed. [address], [place], [address], 04/05/2023 15:52:26 04/05/2004/05/2023 XR, shoul maxim No observ ation record ed. [address], [place], [address], 04/05/2023 15:52:39 Result Notes None recorded. 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 Procedures Surgical History Date Name Laterality Status Provider Name and Address Organization Details Recorded Time Cataract Surgery completed Not Available [facility] 08/26/2022 23:06:17 cardiac catheterization completed Not Available [facility] 08/26/2022 23:06:17 colonoscopy completed Not Available [facility] 08/26/2022 23:06:17 dacryocystotomy completed Not Available [facility] 08/26/2022 23:06:17 Hysterectomy completed Not Available [facility] 08/26/2022 23:06:17 Cholecystectomy completed Not Available [facility] 08/26/2022 23:06:17 Imaging Results Imaging Date Name Status LastModified by Organization Details LastModified Time 06/23/2022 CT, abdomen + pelvis, w/ contrast completed [id number] [address], [place], [address], 08/26/2022 23:11:14 06/15/2022 imaging/diagnostic result completed [id number] [place] [address], [place], [address], 08/26/2022 23:11:14 06/15/2022 imaging/diagnostic result completed [id number] [place] [address], [place], [address], 08/26/2022 23:11:14 07/31/2022 CT, abdomen + pelvis, w/ contrast completed [id number] [facility] [address], [place], [address], 08/26/2022 23:11:14 01/16/2021 electrocardiogram completed MIGRATION. [id number] [facility] [address], [place], [address], 08/26/2022 23:11:14 01/15/2021 electrocardiogram completed MIGRATION. [id number] [facility] , [address], [place], [address], 08/26/2022 23:11:14 04/14/2022 XR, lumbosacral spine, 2 or 3 view completed [id number] [facility] (Imaging) [address] [facility], [place], [address], 08/26/2022 23:11:14 04/14/2022 XR, lumbosacral spine, 2 or 3 view completed [id number], [place], [address], 08/26/2022 23:11:14 04/02/2023 XR, wrist, 3 or more view completed [address], [address], 04/05/2023 10:20:44 04/02/2023 XR, hip, bilateral, 2 view completed [address], [address], 04/05/2023 10:22:37 04/02/2023 XR, femur, 2 or more view completed [address], [address], 04/05/2023 10:23:23 04/03/2023 CT, hip, w/o contrast completed [address], [address], 04/05/2023 10:24:12 04/03/2023 XR, chest, 2 view completed [address], [address], 04/05/2023 10:25:09 04/05/2023 stress echocardiogram completed [address], [address], 04/05/2023 15:52:26 04/05/2023 XR, shoulder completed [address], [place], [address], 04/05/2023 15:52:39 Procedure Notes None recorded. Medical [...] % 96 % 84 /min 97.3 [degF] 90068.7 9 g 116 mm[Hg] 76 mm[Hg] Not Available [facility] 3 23:08:21 Date Recorded Body mass index (BMI) Body height Oxygen saturation Oxygen saturation in Arterial blood by Pulse oximetry Heart rate Body temperature Body weight Systolic blood pressure Diastolic blood pressure Provider Name and Address Organization Details Last Updated DateTime 2 27.4 kg/m2 147.32 cm 98 % 98 % 113 /min 97.3 [degF] 93130.6 g 144 mm[Hg] 90 mm[Hg] Not Available [facility] 3 23:08:21 Date Recorded Body height Body mass index (BMI) Body weight Body temperature Heart rate Oxygen saturation Oxygen saturation in Arterial blood by Pulse oximetry Systolic blood pressure Diastolic blood pressure Provider Name and Address Organization Details Last Updated DateTime 3 147.32 cm 26.1 kg/m2 77625.0 5 g 98.7 [degF] 103 /min 98 % 98 % 130 mm[Hg] 80 mm[Hg] MARIELA Mckeon [place] [facility] [place] [facility] 3 10:07:40 Social History Question Answer Notes LastModified by Organizat ion Details LastModified Time Tobacco Smoking Status Never Smoker Not Available [facility] 08/26/2022 23:06:07 What Is Your Level Of Alcohol Consumption? None [id number] Information not available 08/26/2022 In The 14 Days Before Symptom Onset, Have You Had Close Contact With A Laboratory-confirm ed COVID-19 While That Case Was Ill? No [id number] Information not available 08/26/2022 In The 14 Days Before Symptom Onset, Have You Had Close Contact With A Person Who Is Under Investigation For COVID-19 While That Person Was Ill? No [id number] Information not available 08/26/2022 Sex: Unknown Functional Status None recorded. Mental Status None recorded. Family History Relationship Description Onset Age of this Age Resolved Age Notes LastModified by Organization Details LastModified Time Father Calcificatio n of lung [id number] Not available 08/26/2022 23:06:23 Father Malignant tumor of lung [id number] Not available 08/26/2022 23:06:23 Mother Aneurysm [id number] Not available 08/26/2022 23:06:23 Medical History Condition Response BLINDNESS N RHEUMATIC FEVER N KIDNEY STONES N BLADDER PROBLEMS N MRSA N OTHER # 1 N POLIO N LUNG DISEASE/DISORDER N HISTORY OF DRUG ABUSE N COPD N RADIATION / CHEMOTHERAPY N Other # 2 N BLOOD DISEASES N SURGERY N EAR OR HEARING PROBLEMS Y MUMPS N SHINGLES N FEMALE PROBLEMS / INFECTIONS N DEPRESSION (INCLUDING POST ) N BOWEL PROBLEMS N STROKE/TIA N THYROID DISEASE N ULCERS N BENIGN PROSTATIC HYPERPLASIA N MEASLES N CERVICALGIA N HYPOTENSION N TB SKIN TEST N MYOCARDIAL INFARCTION N OBESITY N PARAPELGIA N GERD/NAUSEA N ANEURYSM N URINARY/BLADDER/KIDNEY PROBLEMS [...] GLAUCOMA N FOOT PROBLEM N DIVERTICULITIS N CHICKENPOX N SLEEP APNEA N ALLERGIES/HAYFEVER N INFECTIOUS DISEASE N HEART ARRHYTHMIA N PROSTATE N INSOMNIA N HIGH CHOLESTEROL / HYPERLIPIDEMIA N EYE PROBLEMS N HYPERTHYROIDISM N EATING DISORDER N EDEMA N CHRONIC PAIN SYNDROME N CAROTID BLOCKAGE N CONSTIPATION N BACK / NECK PROBLEMS N HAVE YOU BEEN HOSPITALIZED OR SEEN IN [facility] IN THE PAST YEAR ? N ATHEROSCLEROSIS [...] DISORDER N ALZHEIMER'S DISEASE N PAIN N HERPES N DEMENTIA N SEIZURES/EPILEPSY N HEADACHES/MIGRAINES N VASCULAR DISEASE N PACEMAKER N DIZZINESS N KIDNEY DISEASE N HEART DISEASE/HEART PROBLEMS N SCARLET FEVER N MULTIPLE SCLEROSIS N MENTAL DISORDER/ILLNESS N DEVELOPMENTAL OR BEHAVIORAL DISORDERS N CARDIAC ARRHYTHMIA N CANCER: SPECIFY N PNEUMONIA N Gall Stones Y ATRIAL FIBRILLATION N PULMONARY EMBOLISM N AUTOIMMUNE DISEASE N Gynecological HistoryNo gynecological history recorded. Obstetrics History GPAL:G 0 P 0 0 0 0 Past Encounters Encounter ID Performer Location Encounter Start Date Encounter Closed Date Diagnosis/Indication Diagnosis SNOMED-CT Code Diagnosis ICD10 Code Diagnosis Note [id number] [facility] [address] price [address] [place] [address] 01/15/2021 00:00:00 01/16/2021 06:41:22 [id number] [facility] [address] [place] [address] 04/14/2022 00:00:00 04/14/2022 12:21:36 [id number] Georgette Campuzano MD [facility] [address]bert [address] [place] [address] 10/14/2022 09:54:33 10/14/2022 10:29:47 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 Chronic ly mphoid leukemia, disease 41252084 C91.10 F/u with oncologist /hematolog ist Health Concerns Section Related Observation LastModified by Organization Detai ls LastModified Time None Recorded Concern Status LastModified by Organization Details LastModified Time None Recorded Advance Directives Directive None Recorded Payers Encounter Date Sequence Insurance Name Policy Number Policy Lua Covered Member ID Lua Member ID Guarantor Name 10/14/2022 1 [employer] (MEDICARE REPLACEMENT PPO) [id number] Sandra Ford [id number] Sandra Ford Notes Date Note Type Note [...] vaginal discharge very slight. Georgette Campuzano MD [address] [place] [address] [address], [place], [address], [facility] 10/14/2022 10:45:32 OBGyn Episode No OBEpisode recorded.
--- OUTSIDE RECORDS SUMMARY | 2024-07-20 06:20 | XMS_ITS | Continuity of Care Document ---
Author Organization [facility] Address [address] [place] [address] [place] [address] Phone Care Team Providers Care Crosstie Inspector Name Role Phone Misha Perdomo Unavailable Unavailable Procedures Procedure Date Office/outpatient Visit, Est Eye Exam & Treatment No Script Refraction Eye Exam & Treatment Refraction Post-op Follow-up Visit Post-op Follow-up Visit Remove Cataract, Insert Lens Limbal Relaxing Incision Office/outpatient Visit, Est [facility] Advance Directives Directive Yes / No Effective Date File Name No Information Encounters Encounter Description Practice Location Reason(s) For Visit Diagnoses Date Provider Providers Copied on Encounter Office/outpat ient Visit, Est [facility], [address] [place] [address] [address], [place], [place], [address], tel:[phone] [facility] No Information Sep-0 9-201 0 Conor Cabral. [address] , [address], [place], [address], [place]. tel:[phone] [facility], [address], [place], [place], [address], [place] tel:[phone] [facility] No Information Sep-1 0-200 9 Conor Cabral. [address] , [address], [place], [address], [place]. tel:[phone] [facility] Eye [facility], [address], [place], [place], [address], [place] tel:[phone] [facility] No Information 3200 8 Conor Cabral. [address] , [address], [place], [address], [place]. tel:[phone] [facility] Eye [facility], [address], [place], [place], [address], [place] tel:[phone] [facility] No Information 7 Conor Cabral. [address] [facility] , [address], [place], [place], [facility], [place]. tel:[phone] [facility] Eye [facility], [address], [place], [place], [address], [place] tel:[phone] [facility] No Information 1200 7 Conor Cabral. [address], [place], [facility], [place]. tel:[phone] [facility] Eye [facility], [address], [place], [place], [address], [place] tel:[phone] [facility] No Information 0 7 Conor Cabral. [address], [place], [facility], [place]. tel:[phone] Office/outpat ient Visit, Est [facility] Eye [facility], [address] [place] [address] [address], [place], [place], [address], [place] tel:[phone] [facility] No Information 7 Conor Cabral. [address] , [address], [place], [facility], [place]. tel:[phone] Referring Provider: Misha Flores, [facility], 1928[address], [place], [address]. tel:[phone] Family History Family Member Type Diagnosis Age At Onset No Information Payers Payer name Insurance type Covered republican ID Authoriza tion(s) [place] [id number] Social History Type Description Quantity Date Captured Comments Sex Female Smoking Status No Information Chief Complaint And Reason For Visit No Information Reason For Referral Reason For Referral No Information History Of Present Illness Encounter Date Complaint History Of Prese nt Illness No Information Functional Status Date Functional Assessmen t No Information Instructions Date Instruction Additional Infor mation No Information Assessments Type Assessment Date No Information Patient Care Teams Name Effective Dates (start - stop) Status Members No Information
--- OUTSIDE RECORDS SUMMARY | 2024-07-20 06:20 | XMS_ITS | Clinical Summary ---
Author Organization [facility] Address [address] [place] [address] Care Team Providers Care Leaf Fat Scraper Name Role Phone Evelin Eliseo Sudarshan FENG Primary Care Provider Allergies Active Allergy Reactions Criticality Noted Date Comments Ibrutinib Hives High 05/15/2024 Medications ascorbic acid, vitamin C, (Vitamin C) 100 mg Tablet Vitamin C Active omega-3s/dha/epa /fish oil/D3 (VITAMIN-D + OMEGA-3 ORAL) Vitamin D Active ferrous sulfate 325 mg (65 mg iron) tablet Take 325 mg by mouth daily. Active metoprolol tartrate (LOPRESSOR) 25 mg tablet Take 25 mg by mouth 2 times daily. Active Eliquis 2.5 mg tablet Take 1 Tablet by mouth 2 times daily. Active cyanocobalamin 1,000 mcg Tablet Take 1,000 mcg by mouth daily. Active Magnesium Gluconate 27.5 mg magne- sium (500 mg) Tablet Take 250 mg by mouth daily. Active acetaminophen (TYLENOL ARTHRITIS) 650 mg Extended Release tablet Take 650 mg by mouth every 6 hours as needed for Pain. Active HYDROcodone-acet aminophen (NORCO) 7.5-325 mg TabletIndication s:CLL (chronic lymphocytic leukemia) (CMS/HCC) Take 1 Tablet by mouth every 6 hours as needed for Pain, Moderate. Max Daily Amount: 4 Tablets 60 Tablet 4 Active zanubrutinib 80 mg capsule Take 2 Capsules (160 mg) by mouth 2 times daily. 120 Capsule 2 5 Active zanubrutinib 80 mg capsule Take 2 Capsules (160 mg) by mouth 2 times daily. 120 Capsule 2 06/22/2024 3:13 PM HAND CANDY CUTTER 11/07/06/19 25 Discontinu ed(Reorder ) Active Problems Problem Noted Date Diagnosed Date CLL (chronic lymphocytic leukemia) 03/24/2018 Encounters Date Type Department Care Team Description 07/18/2024 Specialty Pharmacy [facility] [address] [facility] [place] [address] Luanne Pantoja, PHARMACIST 07/14/2024 Orders Only [facility] Oncology and Hematology - Ck [address] [place] [phone] Nicholas Gibson MD 07/11/2024 Telephone [facility] Oncology and Hematology [facility] [address] [place] [phone] Nicholas Gibson MD Medication Review 07/06/2024 Refill [facility] Oncology [facility] Hematology [facility] [address] [place] [address] Nicholas Gibson MD 06/13/2024 9:45 AM HAND CANDY CUTTER Office Visit [facility]ematology [facility] [address] [place] [address] Nicholas Gibson MD CLL (chronic lymphocytic leukemia) (CMS/HCC) (Primary Dx) 06/13/2024 Orders Only [facility] Oncology and Hematology [facility] [address] [place] [address] Nicholas Gibson MD 06/13/2024 Telephone [facility] Oncology and Hematology [facility] [address] [place] [address] Nicholas Gibson MD Medication Review 06/12/2024 Orders Only [facility] and Hematology [facility] [address] [place] [address] Nicholas Gibson MD 06/09/2024 Telephone [facility] and Hematology [facility] [address] [place] [address] Nicholas Gibson MD Lab Results 06/08/2024 Specialty Pharmacy [facility] Special[facility] [facility] [place] [address] Sarah Garcia, PHARMACIST Specialty Pharmacy Refill Coordination 05/24/2024 Telephone [facility] Hematology [address] [place] [address] Nicholas Gibson MD Medication Review 05/16/2024 Specialty Pharmacy [facility] Specialty [address] [place] [address] Ivet Malagon, PHARMACIST Specialty Pharmacy Clinical Assessment 05/16/2024 Specialty Pharmacy [facility] [address] [place] [address] Ivet Malagon, PHARMACIST Specialty Pharmacy Refill Coordination 05/16/2024 Specialty Pharmacy [address] [address] Ivet Malagon, PHARMACIST Specialty Pharmacy Prior Auth Coordination 05/15/2024 11:30 AM HAND CANDY CUTTER Office Visit [facility] Oncology and Hematology [facility] [address] [place] [address] Nicholas Gibson MD CLL (chronic lymphocytic leukemia) (CMS/HCC) (Primary Dx) 05/03/2024 Orders Only [facility] Oncology and Hematology - Ck [address] [place] [address] Nicholas Gibson MD 05/02/2024 Orders Only [facility] Hematology - Ck [address] [place] [address] Nicholas Gibson MD from Last 3 Months Family History Medical History Relation Name Comments Heart Disease Brother 1 Other Brother 2 Lung Cancer Father Other Mother Relation Name Status Comments Brother 1 Brother 2 Father Mother Sister Other Social History Tobacco Use Types Packs/Day Years Used Date Smoking Tobacco: Never Tobacco Cessation:Counseling Given: Not Answered Alcohol Use Standard Drinks/Week Comments Yes 0 (1 standard drink = 0.6 oz pur e alcohol) rarely Comments No Sex and Gender Information Value Date Recorded Sex Assigned at Not on file Legal Sex Female 1:30 PM CDT Gender Identity Not on file Sexual Orientation Not on file Last Filed Vital Signs Vital Sign Reading Time Taken Comments Blood Pressure 134/79 06/13/2024 9:49 AM HAND CANDY CUTTER Pulse 77 06/13/2024 9:49 AM HAND CANDY CUTTER Temperature 36.5 ??C (97.7 ??F) 06/13/2024 9:49 AM CS T Respiratory Rate 18 06/13/2024 9:49 AM HAND CANDY CUTTER Oxygen Saturation 98% 06/13/2024 9:49 AM HAND CANDY CUTTER Inhaled Oxygen Concentration - - Weight 49.9 kg (110 lb) 06/13/2024 9:49 AM HAND CANDY CUTTER Height 147.3 cm (4' 10 ) 10/06/2023 12:32 PM CDT Body Mass Index 22.99 10/06/2023 12:32 PM CDT Plan of Treatment Upcoming Encounters Date Type Department Care Team (Late st Contact Info) Description 07/20/2024 1:00 PM HAND CANDY CUTTER Office Visit [facility] Oncology and Hematology - Ck [address] [facility] [address] [place] [address] Nicholas Gibson MD [address] [facility] [address] [place] [address] Health Maintenance Due Date Last Done Comments DTAP/TDAP/TD VACCINES (1 - Tdap) 09[birth year]16/1954 PNEUMOCOCCAL VACCINE 65+ YEARS (1 of 2 - PCV) 09/16/18 55 ZOSTER VACCINE (1 of 2) 09/16/1954 OSTEOPOROSIS SCREENING 09/16/2000 RSV VACCINE (60+ or ) (1 - 1-dose 75+ series) 09/16/2010 INFLUENZA VACCINE (#1) 2024 Preventative Visit- Commercial 06/28/2024 Procedures Procedure Name Priority Date/Time Associated Diagnosis Comments BASIC METABOLIC PANEL Routine 07/14/2024 3:16 PM HAND CANDY CUTTER CBC WITH DIFFERENTIAL Routine 07/14/2024 12:58 PM HAND CANDY CUTTER BASIC METABOLIC PANEL Routine 06/09/2024 12:35 PM HAND CANDY CUTTER BASIC METABOLIC PANEL Routine 06/09/2024 11:14 AM HAND CANDY CUTTER CBC WITH DIFFERENTIAL Routine 05/02/2024 12:01 PM HAND CANDY CUTTER COMPREHENSIVE METABOLIC PANEL Routine 05/02/2024 8:36 AM HAND CANDY CUTTER from Last 3 Months Results * BASIC METABOLIC PANEL (07/14/2024 3:16 PM HAND CANDY CUTTER) Only the most recent of3 resultswithin the time period is included. Blood us Nicholas Gibson MD CHEMISTRY ORDERABLES Final Resu lt * CBC WITH DIFFERENTIAL (07/14/2024 12:58 PM HAND CANDY CUTTER) Only the most recent of2 resultswithin the time period is included. Blood us Nicholas Gibson MD HEMATOLOGY ORDERABLES Final Res ult * COMPREHENSIVE METABOLIC PANEL (05/02/2024 8:36 AM HAND CANDY CUTTER) Blood us Nicholas Gibson MD CHEMISTRY ORDERABLES Final Resu lt from Last 3 Months Insurance [facility] AETNA PPO MCR RX [employer] Medicare Part D Care Teams Leaf Fat Scraper Relationship Specialty Start Date End Date Eliseo Waters DO [address] [facility] [address] [place] [address] PCP - General Internal Medicine 03/24/24
--- OUTSIDE RECORDS SUMMARY | 2024-07-20 06:20 | XMS_ITS | Referral Summary ---
Author Organization [facility] [address] Address [address] [place] [address] Care Team Providers Care Language Pathologist Name Role Phone Eliseo Waters DO Primary Care Provider [phone] Encounters Date Type Department Care Team Description 07/17/2024 8:00 AM [facility] - 07/17/2024 11:59 PM [facility] Hospital Encounter [place] [id number] Discharge Disposition: Discharge to home or self care from Last 3 Months Allergies No known active allergies Medications Eliquis [...] Leukemia 01/15/2021 CLL (chronic lymphocytic leukemia) 08/08/2014 Social History Tobacco Use Types Packs/Day Years Used Date Smoking Tobacco: Never Tobacco Cessation:Counseling Given: Not Answered Comments Unknown Sex and Gender Information Value Date Recorded Sex Assigned at Not on file Legal Sex Female 11:42 PM [facility] Gender Identity Not on file Sexual Orientation [...] 04/12/2024 9:54 AM CDT Plan of Treatment Not on file Procedures Procedure Name Priority Date/Time Associated Diagnosis Comments SURGICAL PATHOLOGY Routine 07/17/2024 9: 46 AM [facility]OOFER from Last 3 Months Results * Surgical pathology (07/17/2024 9:46 AM [facility]OOFER) Bone - Biopsy / Curettings 07/17/2024 9:46 AM [facility]OOFER 07/18/2024 9:46 AM [facility] Narrative 07/19/2024 10:43 PM [facility]OO[facility] EPIC results best viewed via link to PDF [facility] Department of Pathology [address] [place], [place] [id number] Note to Patients: This report may contain [...] the details. Final Report Patient Name: ??SANDRA FORD Address: ??[address] [place] [address], ??[place], [place] ?? Gender: ??F : ??1935 (Age: 88) Service: ?? Location: ?? Hospital #: ??[id number] Patient Type: ?? SPECIMEN Accession # ?[id number] Taken: ??07/17/2024 Received: ??07/18/2024 Accessioned: ??07/18/2024 Reported: [...] two formalin containers labeled SANDRA FORD . A. ??The first container is labeled T8 vertebral body . It is 1 core of riojas bone measuring 7 mm. ??The specimen is decalcified.. All in A. B. ??The second container is labeled T10 vertebral body . It is 1 core of riojas tissue measuring 8 mm. ??The specimen is decalcified.. All in B. T.A. Chayito Hernandez, P.A./Trice Harvey M.D. REPORT IMAGES AND SCANNED DOCUMENTS, IF INCLUDED, ONLY VIEWABLE IN PDF VERSION OF REPORT The performance characteristics of some immunohistochemical stains, fluorescence in-situ hybridization tests and immunophenotyping by flow cytometry cited in this report (if any) were determined by the Surgical Pathology Department at [facility] as part of an ongoing quality assurance nurse program and in compliance with federally mandated [...] characteristics determined by the Surgical Pathology Department [facility]. ??It has not been cleared or approved by the U. S. Food and Drug Administration. Note for decalcified specimens: This assay has not been validated on decalcified tissues. Results should be interpreted with caution given the possibility of false negativity on decalcified specimens Nichole Velazquez MD LAB PATHOLOGY ORDERABLES F inal Result from Last 3 Months Insurance [employer] MEDICARE Care Teams Language Pathologist Relationship Specialty Start Date End Date Eliseo Waters DO PCP - General Internal Medicine 09/16/23
== END 2024-07-14 10:15 | disposition home or self-care (01) ==
LOC: ANHLAB 10:15
PROVIDERS: PCP Internal Medicine; Visit Provider Internal Medicine Hematology & Oncology
DX: C91.10 Chronic lymphocytic leukemia of B-cell type not having achieved remission (principal)
CPT/HCPCS: 36415; 80048; 85025; 85055

== ENCOUNTER 2024-07-19 15:47 | Outpatient (CLI) | payer MEDICARE, SELFPAY ==
--- NOTE | ~2024-07-19 | XR_ITS ---
EXAMINATION: XR thoracic spine 3V DATE: 07/19/2024 16:19 INDICATION: Chronic back pain TECHNIQUE: One AP, lateral and lateral swimmer's views of the thoracic spine were obtained. COMPARISON: Thoracic spine MR dated 06/27/2024 and radiographs dated 06/12/2024 FINDINGS: 30 degree thoracolumbar levoscoliosis. 5 degrees lower thoracic dextrocurvature. Mild lower thoracic kyphosis. Interval vertebral plasties at 3 cc burst fractures of T8 and T10 burst fractures. No sheriff e in a chronic T7 burst fracture with 80% anterior vertebral body height loss. No new fractures ident ified. Severe lower cervical upper lumbar spondylosis with mild spondylosis in the intervening lumbar spine. Mild streaky atelectasis at the lateral left mid to lower lung zones and lateral right lung b ase. No pleural effusion or pneumothorax. Cardiomegaly. Cholecystectomy clips in right upper quadrant . IMPRESSION: 1. Mild thoracic spondylosis with stable appearance of a chronic T7 burst fracture with interval vert ebral plasties at additional chronic T8 and T10 burst fractures. 2. 30 degrees thoracolumbar levoscoliosis with severe upper lumbar spondylosis. 2. Severe lower cervical spondylosis. Reviewed, dictated and finalized at location A. N TIER IMPRESSION: 1. Mild thoracic spondylosis with stable appearance of a chronic T7 burst fract ure with interval vertebral plasties at additional chronic T8 and T10 burst fra ctures. 2. 30 degrees thoracolumbar levoscoliosis with severe upper lumbar spondylosis. 2. Severe lower cervical spondylosis.
--- NOTE | ~2024-07-19 | XR_ITS ---
EXAMINATION: XR lumbar spine 6V w bending DATE: 07/19/2024 16:19 INDICATION: Chronic back pain. TECHNIQUE: 7 views of thoracic spine including flexion and extension views were obtained. COMPARISON: Lumbar spine MRI 03/30/2024, thoracic spine MRI 06/27/2024 FINDINGS: There is 33 degrees levoscoliosis of thoracolumbar spine. There is 3 mm retrolisthesis of L 1 on 2, 5 mm retrolisthesis of L2 on L3, and 5 mm anterolisthesis of L4 on L5. The spine is hypomobil e with flexion and extension. There are changes of vertebroplasty in thoracic spine. There is severel y decreased disc height from T12-L1 through L3-L4, moderately decreased disc height at L4-L5, and sev erely decreased disc height at L5-S1. There is multilevel severe facet joint osteoarthritis. There ar e surgical clips in right abdomen. IMPRESSION: 1. Severe lumbar spondylosis. 2. Thoracolumbar levoscoliosis. Reviewed, dictated and finalized at location B. VITY MANAGER
== END 2024-07-19 15:48 | disposition home or self-care (01) ==
LOC: MICIMG 15:48
PROVIDERS: PCP Internal Medicine; Visit Provider Nurse Practitioner Family
DX: M47.892 Other spondylosis, cervical region (principal); M47.894 Other spondylosis, thoracic region; M47.896 Other spondylosis, lumbar region
CPT/HCPCS: 72072; 72114

== ENCOUNTER 2024-07-20 07:04 | Inpatient (IN) | payer MEDICARE, SELFPAY ==
[2024-07-20] VITALS (23 sets, daily range): BP systolic 134–189; BP diastolic 82–108; PULSE 83–123; RESP 12–25; TEMP 36.3–36.6; O2SAT 96–100; BMI 23.8
--- NOTE | ~2024-07-20 | CT_ITS ---
EXAMINATION: CT thoracic lumbar wo con DATE: 07/20/2024 07:56 INDICATION: Fall. TECHNIQUE: Computed tomography (CT) of the thoracic and lumbar spine was performed without intravenou s contrast. Automated exposure control and iterative reconstruction technique were employed. The dose -length product was 844.49 mGy-cm. COMPARISON: Thoracic spine MRI 06/27/2024 FINDINGS: CT THORACIC SPINE: There is 5 degrees dextrocurvature of thoracic spine. There is a burst fracture of T7 with 3/5 loss of height and retropulsion of bone 4 mm into central spinal canal. There are burst fractures of T8 and T10 with changes of vertebroplasty. There is mildly decreased disc height at mult iple levels. There is multilevel severe facet joint osteoarthritis. There is mild neural foraminal st enosis at multiple levels on either side. There is mild central canal stenosis at T7, T8, and T10. CT LUMBAR SPINE: There is 24 degrees levoscoliosis of thoracolumbar spine. There is 4 mm anterolisthe sis of L4 and L5. There is mild chronic anterior wedging of T12 and L1 vertebral bodies. There is a c hronic compression fracture of L4 with 1/5 loss of height. There is severely decreased disc height fr om T12-L1 through L5-S1. The following disc levels are specifically discussed: L1-L2: The disc is bulging. There is mild right and moderate left facet joint osteoarthritis. There i s mild bilateral neural foraminal stenosis. There is mild central canal stenosis. L2-L3: The disc is bulging. There is moderate bilateral facet joint osteoarthritis. There is mild rig ht and moderate left neural foraminal stenosis. There is mild central canal stenosis. L3-L4: The disc is bulging. There is moderate bilateral facet joint osteoarthritis. There is mild rig ht and moderate left neural foraminal stenosis. There is mild central canal stenosis. L4-L5: The disc is bulging. There is severe bilateral facet joint osteoarthritis. There is mild bilat eral neural foraminal stenosis. There is moderate central canal stenosis. L5-S1: The disc is bulging. There is severe bilateral facet joint osteoarthritis. There is moderate b ilateral neural foraminal stenosis. There is mild central canal stenosis. IMPRESSION: 1. Subacute burst fracture of T7, stable from 06/27/2024. 2. Severe thoracic and lumbar spondylosis. 3. Scoliosis. Reviewed, dictated and finalized at location [] GER STRATEGY & ACCOUNT
--- NOTE | ~2024-07-20 | CT_ITS ---
EXAMINATION: CT brain wo con DATE: 07/20/2024 07:52 INDICATION: Fall. TECHNIQUE: Computed tomography (CT) of the head was performed without intravenous contrast. The mA wa s adjusted according to patient size. Iterative reconstruction technique was employed. The dose-lengt h product was 1210.67 mGy-cm. COMPARISON: None FINDINGS: There are scattered areas of low attenuation in the cerebral white matter, which is within normal limits for the patient's age. There is no intracranial hemorrhage, acute infarction, or abnorm al intracranial mass lesion. The ventricles are normal in size. There is mild mucosal thickening in t he paranasal sinuses. There are likely changes of ocular lens replacement surgeries. The mastoid air cells are normal. IMPRESSION: 1. Normal aging brain. Reviewed, dictated and finalized at location [] OR PYTHON DEVELOPER IMPRESSION: 1. Normal aging brain.
--- NOTE | ~2024-07-20 | CT_ITS ---
EXAMINATION: CT abdomen pelvis w con DATE: 07/20/2024 09:55 INDICATION: Nausea and vomiting. No bowel movement. TECHNIQUE: Computed tomography (CT) of the abdomen and pelvis was performed with 100 mL Omnipaque-350 intravenous contrast. Automated exposure control and iterative reconstruction technique were employe d. The dose-length product was 305.20 mGy-cm. COMPARISON: None FINDINGS: Respiratory motion and linear atelectasis in the bilateral lower lungs. Cardiomegaly with biatrial en largement. Atherosclerotic coronary artery calcification. No pericardial or pleural effusion. Cholecy stectomy clips at the gallbladder fossa and likely dropped clip along the distal greater curvature of the stomach. Liver, spleen, pancreas, right kidney and bilateral adrenal glands are normal. A few vicente bcentimeter left renal cysts measuring up to 8 mm. Normal appendix. Moderate amount of colonic stool. No dilated bowel to suggest obstruction. There is mild sigmoid diverticulosis with focal wall thicke christ along the distal sigmoid colon. There is a 3.4 x 1.0 cm peripheral enhancing gas and fluid colle ction paralleling the colon in this region consistent with a small associated abscess, potentially in tramural. Kimberlee the location and this would not be amenable to percutaneous drainage due to both its small size and its presacral location. No free intraperitoneal gas or fluid. The uterus is not id entified and has likely been surgically resected. Severe lumbar and lower thoracic spondylosis. Chron ic T8 and T10 compression fractures with prior vertebroplasties. IMPRESSION: 1. Distal sigmoid diverticulitis with small potentially intramural abscess. 2. Cardiomegaly with biatrial enlargement. Reviewed, dictated and finalized at location A. GER TRADING
--- NOTE | ~2024-07-20 | XR_ITS ---
Portable chest x-ray Comparison: 04/03/2023 Clinical History: Shortness of breath Findings: No focal consolidation or pleural effusion. There is probable mild interstitial prominence , nonspecific. Cardiomediastinal silhouette is stable. Vertebroplasty noted at the T11 and T9 levels . Impression: Mild interstitial prominence, nonspecific. Correlate for mild interstitial edema, COPD, or other rn chronic jordan interstitial change. Stable cardiomegaly. Reviewed, dictated and finalized at location . FOREMAN Impression: Mild interstitial prominence, nonspecific. Correlate for mild interstitial destiny a, COPD, or other chronic interstitial change. Stable cardiomegaly.
--- NOTE | ~2024-07-20 | CT_ITS ---
Noncontrast CT scan of the cervical spine Technique: Multiple contiguous axial [address] images of the cervical spine were obtained and rec onstructed in 2D sagittal and coronal planes on the acquisition scanner. Dose reduction technique was used on this scan by utilizing automated exposure control, adjustment of the mA and/or kV according to patient size. The dose-length product (DLP) was 136.71 mGy-cm. Clinical History: Pain Findings: No acute fracture seen. There is reversal normal cervical lordosis. There is minimal grade 1 anterolisthesis of C3 over C4. There is severe degenerative disc narrowing at C4-C5, C5-C6, and C6- C7. There is fusion of the facet joints bilaterally at C4-C5. There are additional moderate facet janie nt degenerative changes throughout the remainder of the cervical spine. There is right neural foramin al narrowing at C3-C4. There is bilateral neural foraminal narrowing at C5-C6 and C6-C7. No preverteb ral soft tissue swelling. Impression: No acute fracture. Reversal of the normal cervical lordosis with grade 1 anterolisthesis of C3 over C4. Degenerative spondylitic changes, as above. Reviewed, dictated and finalized at location . RA STORAGE CLERK Impression: No acute fracture. Reversal of the normal cervical lordosis with grade 1 anterolisthesis of C3 ove r C4. Degenerative spondylitic changes, as above.
--- NOTE | 2024-07-20 07:11 | ED_ITS ---
HPI - Fall General Chief Complaint: Fall Stated Complaint: fall Time Seen by Provider: 07/20/24 07:11 History of Present Illness HPI Narrative: 88 years old white female lives alone, daughter found her at 6:30 a.m. this morning laying down on the floor of unknown reason, confused, does not recall the reason of the fall. Patient used to be on [place] which stopped few days ago started tramadol for the 1st time last night Patient status post kyphoplasty of T 7 T8 and T10 1 week ago. History of chronic lymphocytic leukemia Related Data Home Medications ?Medication ?Instructions ?Recorded ?Confirmed ?Last Taken ?Type ascorbic acid (vitamin C) 100 mg 100 mg PO DAILY 03/17/23 07/07/24 04/02/23 History chewable tablet ferrous sulfate 325 mg (65 mg 325 mg PO DAILY 03/17/23 07/07/24 04/02/23 History iron) tablet (iron) omega-3 150 ed-mgf-twx-fish oil 1 cap PO DAILY 03/17/23 07/07/24 1 Week Ago History 500 mg-D3 200 unit capsule,delayed ~12/10/23 rel (Exira-3 Plus Vitamin D3) pcrmfucg-xdae-sxilj acid 240 1 tablet PO DAILY 04/02/23 07/07/24 04/02/23 History mcg-vit K 120 sex-fszzfi-mjqp 293 tablet (Alive Women's 50 Plus (fruit-veg blend)) metoprolol tartrate 25 mg tablet 25 mg PO BID 10/29/23 07/07/24 12/17/23 History cyanocobalamin (vitamin B-12) 1,000 mcg PO DAILY 12/08/23 07/07/24 Unknown History 1,000 mcg tablet hydrocodone 10 mg-acetaminophen 1 tablet PO Q8H PRN 07/07/24 07/07/24 Unknown History 325 mg tablet zanubrutinib 80 mg capsule See Rx Instructions .Route .COMPLEX 07/07/24 07/07/24 Unknown History Allergies Allergy/AdvReac Type Severity Reaction Status Date / Time tetracycline Allergy Unknown Unknown Verified 07/07/24 09:06 ibrutinib AdvReac Rash Verified 07/07/24 09:06 Review of Systems 2 Review of Systems: All systems reviewed & are unremarkable except as noted in HPI and below PMFSH Past Medical History Medical History Hypertension Occult blood in stools Chronic anemia Bacteremia due to Klebsiella pneumoniae Mild pulmonary hypertension Moderate mitral regurgitation Mild aortic stenosis CLL (chronic lymphocytic leukemia) Closed fracture of greater trochanter of left femur History of UTI Chronic lymphocytic leukemia Surgical History Surgical History H/O cataract extraction History of colonoscopy with polypectomy History of total abdominal hysterectomy History of laparoscopic cholecystectomy Family History Family History Father Family history of lung cancer Patient's father is Mother Patient's mother is Social History Social History Social History: She is and lives home alone. She has 3 children. 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 She has never smoked. She worked for [employer]. No alcohol marijuana or illicit drugs. Code status full code Smoking status: Never smoker Second hand tobacco smoke exposure: Yes Alcohol intake: never Substance use: never Substance use type: does not use Do You Feel Safe in your Home?: Yes Lack of Transportation: No Lack of Food: Never True Current Housing: I Have Housing Concerned About Future Housing: No Difficulty Paying Gas/Electric Bills: No Difficulty Paying for Meds: No Currently Unemployed: No Education: High School Diploma/GED Difficulty w/ Childcare or Family Care: No Living arrangements: alone Occupation/Education: retired Gender identity (if verbalized by the patient): Female Spiritual care concerns: No Exam 2 Narrative: General appearance: Well-developed, well-nourished Skin: Normal color Head: Normocephalic, nontraumatic Eyes: Clear conjunctiva ENT: Oropharynx normal, ears normal, nose normal Neck: Supple, nontender Chest and respiratory: Airway patent, no respiratory distress, no accessory muscle use Heart: Tachycardia, irregular irregularity Abdomen: Soft, nontender, no organomegaly, distended abdomen, quiet bowel sounds Vascular: Normal peripheral pulses, normal capillary refill. 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 is normal as tested, no gross motor deficit Course Consultations Consultation #1: DR ESPINOZA Date: 07/20/24 Time: 10:09 Vital Signs Vital signs: Vital Signs Temperature 36.6 C 07/20/24 07:29 Pulse Rate 96 07/20/24 07:29 Respiratory Rate 16 07/20/24 07:29 Blood Pressure 174/90 H 07/20/24 07:29 Pulse Oximetry 100 07/20/24 07:29 Oxygen Delivery Room Air 07/20/24 07:29 Temperature 36.6 C 07/20/24 08:30 Pulse Rate 88 07/20/24 09:01 Respiratory Rate 15 07/20/24 09:01 Blood Pressure 165/101 H 07/20/24 09:01 Pulse Oximetry 99 07/20/24 09:01 Oxygen Delivery Room Air 07/20/24 07:29 MDM - Fall MDM Narrative Medical decision making narrative: Patient came to the ED from home with confusion, found on the floor. Vital signs showing blood pressure 174/90, atrial fibrillation with controlled ventricular response otherwise within normal limit Physical examination showing a patient, awake, alert oriented x4 denying any symptoms, confused does not know exactly what have been Differential diagnosis include closed head injury, cervical fracture, spine fracture, urinary tract infection, rhabdomyolysis, UTI, renal failure, electrolyte imbalance BLOOD WORKUP TODAY INCLUDES CBC, CMP, TROPONIN, CPK SHOWED WBC OF 234.3 CONSISTENT WITH PREVIOUS READINGS, LYMPHOCYTE 224.8, TOTAL BILIRUBIN OF 2.1, URINALYSIS URINALYSIS SHOWED 3+ BLOOD OTHERWISE INSIGNIFICANT CT HEAD, CT CERVICAL SPINE, CT THORACIC AND LUMBAR SPINE SHOWED NO ACUTE ABNORMALITIES PATIENT TESTED NEGATIVE FOR COVID, FLU AND RSV CHEST X-RAY SHOWED NO ACUTE ABNORMALITIES LATER PATIENT STARTED HAVING ABDOMINAL PAIN AND VOMITING, CT ABDOMEN AND PELVIS WITH IV CONTRAST SHOWED ACUTE DIVERTICULITIS ADMIT TO HOSPITALIST FOR CONFUSION, ACUTE DIVERTICULITIS Differential Diagnosis Differential diagnosis: Likely other ( ABOVE) Medical Records Attestation: I reviewed the patient's medical records. Lab Data Attestation: I reviewed the patient's lab results. 07/20/24 07:26 07/20/24 07:26 Labs: Lab Results 07/20/24 07/20/24 07/20/24 Range/Units 07:24 07:26 07:27 WBC 234.3 H* (4.5-10.0) K/mm3 RBC 3.52 L (4.2-5.4) M/mm3 Hgb 10.0 L (12.0-15.0) g/dL Hct 35.4 L (37.0-47.0) % MCV 100.6 H (80-100) fl MCH 28.4 (26-34) pg MCHC 28.2 L (32-36) g/dl RDW 19.7 H (11.5-14.5) % Plt Count 229 (150-375) k/mm3 MPV 10.5 H (7.4-10.4) fl Immature Gran % (Auto) 0.3 (0-0.5) % Neut % (Auto) 3.7 L (45.5-73.1) % Lymph % (Auto) 95.9 H (18.3-44.2) % [place] % (Auto) 0.1 L (2.6-8.5) % Eos % (Auto) 0.0 (0-4.4) % Baso % (Auto) 0.0 L (0.2-1.2) % Lymph # (Auto) 224.84 H (0.9-3.2) K/mm3 [place] # (Auto) 0.3 (0.1-0.6) K/mm3 Eos # (Auto) 0.0 (0-0.3) K/mm3 Baso # (Auto) 0.0 (0.0-0.1) K/mm3 Abs Immat Gran (auto) 0.62 H (0.00-0.031) K/mm3 Absolute Neuts (auto) 8.6 H (1.3-6.7) K/mm3 Absolute Nucleated RBC 0.000 (0.0-0.012) K/mm3 Nucleated RBC % 0.0 (0.0-0.2) % Smudge Cells Moderate Platelet Estimate Adequate (Adequate) Anisocytosis 1+ Ovalocytes 1+ Schistocytes None seen PT 18.1 H (11.1-14.7) Seconds INR 1.5 APTT 32.6 (22.3-36.8) Seconds Sodium 135 L (137-145) mmol/L Potassium 4.0 (3.4-5.0) mmol/L Chloride 100 (98-107) mmol/L Carbon Dioxide 24 (22-30) mmol/L Anion Gap 11 (4-12) mmol/L BUN 12 (7-17) mg/dL Creatinine 0.73 (0.7-1.0) mg/dL Estim Creat Clear Calc Not Reportable Estimated GFR > 60 (59 - ) Glucose 142 H (65-110) mg/dL POC Capillary Glucose 135 H (65-105) mg/dl Calcium 9.6 (8.4-10.2) mg/dL Total Bilirubin 2.1 H (0.2-1.3) mg/dL AST 20 (14-36) U/L ALT 8 (6-35) U/L Alkaline Phosphatase 89 (38-126) U/L Total Creatine Kinase (30-135) U/L Troponin I < 0.012 (0.000-0.034) ng/mL Total Protein 7.0 (6.3-8.2) g/dL Albumin 4.0 (3.5-5.1) g/dL Lipase 71 (23-300) U/L Urine Color Yellow (Yellow) Urine Appearance Clear (Clear) Urine pH 7.5 (5.0-9.0) Ur Specific [place] 1.008 (1.001-1.035) Urine Protein 1+ H (Negative) mg/dL Urine Glucose (UA) Negative (Negative) mg/dL Urine Ketones 1+ H (Negative) mg/dL Ur Blood (Man) 3+ H (Negative) Urine Nitrate Negative (Negative) Urine Bilirubin Negative (Negative) Urine Urobilinogen 0.2 (<2.0) mg/dL Add Ur Microanalysis Reviewed Leukocyte Esterase Rfl Negative (Negative) KALLI/UL Urine RBC >100 H (0-2) /hpf Urine WBC 6-10 H (0-3) /hpf Ur Squamous Epith Cells None seen (Few) /hpf Urine Bacteria None seen /hpf Urine Casts 0-2 Influenza A (RT-PCR) (Negative) Influenza B (RT-PCR) (Negative) RSV (RT-PCR) (Negative) SARS-CoV-2 RNA (RT-PCR) (Negative) 07/20/24 07/20/24 Range/Units 07:29 08:08 WBC (4.5-10.0) K/mm3 RBC (4.2-5.4) M/mm3 Hgb (12.0-15.0) g/dL Hct (37.0-47.0) % MCV (80-100) fl MCH (26-34) pg MCHC (32-36) g/dl RDW (11.5-14.5) % Plt Count (150-375) k/mm3 MPV (7.4-10.4) fl Immature Gran % (Auto) (0-0.5) % Neut % (Auto) (45.5-73.1) % Lymph % (Auto) (18.3-44.2) % [place] % (Auto) (2.6-8.5) % Eos % (Auto) (0-4.4) % Baso % (Auto) (0.2-1.2) % Lymph # (Auto) (0.9-3.2) K/mm3 [place] # (Auto) (0.1-0.6) K/mm3 Eos # (Auto) (0-0.3) K/mm3 Baso # (Auto) (0.0-0.1) K/mm3 Abs Immat Gran (auto) (0.00-0.031) K/mm3 Absolute Neuts (auto) (1.3-6.7) K/mm3 Absolute Nucleated RBC (0.0-0.012) K/mm3 Nucleated RBC % (0.0-0.2) % Smudge Cells Platelet Estimate (Adequate) Anisocytosis Ovalocytes Schistocytes PT (11.1-14.7) Seconds INR APTT (22.3-36.8) Seconds Sodium (137-145) mmol/L Potassium (3.4-5.0) mmol/L Chloride (98-107) mmol/L Carbon Dioxide (22-30) mmol/L Anion Gap (4-12) mmol/L BUN (7-17) mg/dL Creatinine (0.7-1.0) mg/dL Estim Creat Clear Calc Estimated GFR (59 - ) Glucose (65-110) mg/dL POC Capillary Glucose (65-105) mg/dl Calcium (8.4-10.2) mg/dL Total Bilirubin (0.2-1.3) mg/dL AST (14-36) U/L ALT (6-35) U/L Alkaline Phosphatase (38-126) U/L Total Creatine Kinase 59 (30-135) U/L Troponin I (0.000-0.034) ng/mL Total Protein (6.3-8.2) g/dL Albumin (3.5-5.1) g/dL Lipase (23-300) U/L Urine Color (Yellow) Urine Appearance (Clear) Urine pH (5.0-9.0) Ur Specific [place]rich (1.001-1.035) Urine Protein (Negative) mg/dL Urine Glucose (UA) (Negative) mg/dL Urine Ketones (Negative) mg/dL Ur Blood (Man) (Negative) Urine Nitrate (Negative) Urine Bilirubin (Negative) Urine Urobilinogen (<2.0) mg/dL Add Ur Microanalysis Leukocyte Esterase Rfl (Negative) KALLI/UL Urine RBC (0-2) /hpf Urine WBC (0-3) /hpf Ur Squamous Epith Cells (Few) /hpf Urine Bacteria /hpf Urine Casts Influenza A (RT-PCR) Negative (Negative) Influenza B (RT-PCR) Negative (Negative) RSV (RT-PCR) Negative (Negative) SARS-CoV-2 RNA (RT-PCR) Negative (Negative) Imaging Data My impression: Impressions Chest X-Ray 07/20/24 07:47 Impression: Mild interstitial prominence, nonspecific. Correlate for mild interstitial edema, COPD, or other chronic interstitial change. Stable cardiomegaly. Head CT 07/20/24 07:55 IMPRESSION: 1. Normal aging brain. Cervical Spine CT 07/20/24 07:57 Impression: No acute fracture. Reversal of the normal cervical lordosis with grade 1 anterolisthesis of C3 over C4. Degenerative spondylitic changes, as above. Thoracic/Lumbar Spine CT 07/20/24 08:00 IMPRESSION: 1. Subacute burst fracture of T7, stable from 06/27/2024. 2. Severe thoracic and lumbar spondylosis. 3. Scoliosis. Abdomen/Pelvis CT 07/20/24 09:56 IMPRESSION: 1. Distal sigmoid diverticulitis with small potentially intramural abscess. 2. Cardiomegaly with biatrial enlargement. Radiologist's impression: Impressions Chest X-Ray 07/20/24 07:47 Impression: Mild interstitial prominence, nonspecific. Correlate for mild interstitial edema, COPD, or other chronic interstitial change. Stable cardiomegaly. Head CT 07/20/24 07:55 IMPRESSION: 1. Normal aging brain. Cervical Spine CT 07/20/24 07:57 Impression: No acute fracture. Reversal of the normal cervical lordosis with grade 1 anterolisthesis of C3 over C4. Degenerative spondylitic changes, as above. Thoracic/Lumbar Spine CT 07/20/24 08:00 IMPRESSION: 1. Subacute burst fracture of T7, stable from 06/27/2024. 2. Severe thoracic and lumbar spondylosis. 3. Scoliosis. ECG Data EKG #1: Attestation: I personally reviewed and interpreted this ECG as follows: ECG completion date: 07/20/24 Prior ECG tracings: not available for review Interpretation: AFIB AT 102 BEATS PER MINUTE, MODERATE ST DEPRESSION, NO PREVIOUS EKG AVAILABLE FOR COMPARISON Critical Care Time Critical Care Time Critical Care Time: No Discharge Plan Discharge Clinical Impression: Acute confusion, History of chronic lymphocytic leukemia, Acute diverticulitis Patient Disposition: Still a Patient Condition: Stable Patient Language: Italian Prescriptions: No Action ferrous sulfate [iron] 325 mg (65 mg iron) tablet 325 mg PO DAILY ascorbic acid (vitamin C) 100 mg tablet,chewable 100 mg PO DAILY Exira-3 Plus Vitamin D3 150-500-200 mg-mg-unit capsule,delayed release(DR/EC) 1 cap PO DAILY zanubrutinib 80 mg capsule See Rx Instructions .ROUTE .COMPLEX Rx Instructions: Ordered per oncology hydrocodone-acetaminophen 10-325 mg tablet 1 tablet PO Q8H PRN Patient Comments: Prescribed by pain management nystatin 100,000 unit/gram powder 1 applic topical BID Qty: 15 0RF Rx Instructions: Apply under left breast BID for 7-14 days cyanocobalamin (vitamin B-12) 1,000 mcg Tablet 1,000 mcg PO DAILY Alive Women's 50 Plus (blend) 240-120-300 mcg Tablet 1 tablet PO DAILY Eliquis 2.5 mg Tablet 2.5 mg PO Q12HR Qty: 60 0RF metoprolol tartrate 25 mg tablet 25 mg PO BID Follow-up/Referrals: Eliseo Waters, [Primary Care Provider] -
--- NOTE | 2024-07-20 07:16 | ECG_ITS ---
Test Date: 2024-07-20 07:16:33 Measurements Intervals [place] Rate: 102 P: 0 ND: 0 QRS: -9 QRSD: 86 T: -2 QT: 345 QTc: 451 Interpretive Statements ATRIAL FIBRILLATION WITH RAPID VENTRICULAR RESPONSE MODERATE ST DEPRESSION [0.05+ mV ST DEPRESSION] No previous ECG available for comparison Electronically Signed On 07-20-2024 14:18:16 [employer]IN CLEANER by Tonia Stuart
[2024-07-20 07:46] LABS: Hematocrit 35.4 % (37.0-47.0); Immature Granulocyte Absolute 0.62 K/mm3 (0.00-0.031); Immature Granulocyte Percent A 0.3 % (0-0.5); Lymphocytes Absolute Auto 224.84 K/mm3 (0.9-3.2); Lymphocytes Percent Auto 95.9 % (18.3-44.2); Mean Corpuscular HGB Conc 28.2 g/dl (32-36); Mean Corpuscular Hemoglobin 28.4 pg (26-34); Mean Corpuscular Volume 100.6 fl (80-100); Mean Platelet Volume 10.5 fl (7.4-10.4); Monocytes Absolute Auto 0.3 K/mm3 (0.1-0.6); Monocytes Percent Auto 0.1 % (2.6-8.5); Neutrophils Absolute Auto 8.6 K/mm3 (1.3-6.7); Neutrophils Percent Auto 3.7 % (45.5-73.1); Platelet Count Result 229 k/mm3 (150-375); Red Blood Count 3.52 M/mm3 (4.2-5.4); Red Cell Distribution Width 19.7 % (11.5-14.5)
[2024-07-20 07:56] LABS: Alanine Aminotransferase 8 U/L (6-35); Alkaline Phosphatase 89 U/L (38-126); Anion Gap 11 mmol/L (4-12); Aspartate Amino Transferase 20 U/L (14-36); Bilirubin,Total 2.1 mg/dL (0.2-1.3); Blood Urea Nitrogen 12 mg/dL (7-17); Calcium 9.6 mg/dL (8.4-10.2); Carbon Dioxide 24 mmol/L (22-30); Chloride 100 mmol/L (98-107); Estimated Glomerular Filt Rate > 60; Glucose 142 mg/dL (65-110); Sodium 135 mmol/L (137-145)
[2024-07-20 08:00] LABS: Creatine Kinase 59 U/L (30-135)
[2024-07-20 08:00] LABS: Add Urine Microscopic? YES; Appearance Urine Clear (Clear); Bacteria Urine None Seen /hpf; Bilirubin Urine Negative (Negative); Blood Urine 3+ (Negative); Color Urine Yellow (Yellow); Glucose Urine UA Negative (Negative); Ketones Urine 1+ mg/dL (Negative); Leukocyte Esterase Ur Negative LEU/UL (Negative); Need Manual Microscopic Reviewed; Nitrate Urine Negative (Negative); Non Pathogenic Casts 0-2; Protein Urine 1+ mg/dL (Negative); RBC Urine >100 /hpf (0-2); Specific Grav Ur 1.008 (1.001-1.035); Squamous Epithelial Cell Urine None Seen /hpf (Few); Urobilinogen Urine 0.2 mg/dL (<2.0); pH Urine 7.5 (5.0-9.0)
[2024-07-20 08:07] LABS: Troponin I < 0.012 ng/mL (0.000-0.034)
[2024-07-20 08:09] LABS: White Blood Count 234.3 K/mm3 (4.5-10.0)
[2024-07-20 08:13] LABS: Anisocytosis 1+; Ovalocytes 1+; Platelet Estimate Adequate (Adequate); Schistocytes None Seen; Smudge Cells MODERATE
[2024-07-20 08:14] LABS: Lipase 71 U/L (23-300)
[2024-07-20 08:20] LABS: INR 1.5; Prothrombin Time 18.1 Seconds (11.1-14.7)
[2024-07-20 08:21] LABS: Partial Thromboplastin Time 32.6 Seconds (22.3-36.8)
[2024-07-20] MEDS: SODIUM CHLORIDE 0.9% IV 1,000 ML 100 ML IV CONT (08:27)
[2024-07-20 08:30] LABS: Glucose Point of Care 135 mg/dl (65-105)
[2024-07-20 08:49] LABS: Influenza A QL RT-PCR Negative (Negative); Influenza B QL RT-PCR Negative (Negative); RSV RNA, RT-PCR Negative (Negative); SARS-CoV-2 RNA PCR Negative (Negative)
--- NOTE | 2024-07-20 09:38 | PC.NURSE ---
c/o abd pain and having nausea and green watery emesis in room. Reports no BM x 4-5days
[2024-07-20] MEDS: levoFLOXacin 750 MG/D5W 150 ML 750 MG/150 ML BAG 100 MG IVPB (10:45)
[2024-07-20] MEDS: SODIUM CHLORIDE 0.9% IV 1,000 ML 75 ML IV CONT ×2 (10:50→17:16)
[2024-07-20] MEDS: metroNIDAZOLE 500 MG/ISO 100ML 500 MG/100 ML BAG 100 MG IVPB ×2 (12:40→21:50)
--- NOTE | 2024-07-20 12:57 | PM.IMHP ---
H&P: HPI History of Present Illness Date/Time: 07/20/24 12:57 Chief Complaint: Fall Narrative: 88 y/o F presents here with fall with PMH of chronic lymphocytic leukemia, hypertension, chronic anemia, mild pulmonary hypertension, and mild aortic stenosis. The patient presents here from home for further evaluation of fall and confusion. The patient's daughter provides the following report. The patient was found lying on the floor in her home. She does not recall events leading to fall. The daughter found her at 6:30 a.m. this morning and last saw her around 7:00 p.m. last night. The daughter reports her main complaints has been chornic back pain. She was placed on hydrocodone which caused her to have auditory and visual hallucinations. This medication was discontinued and exchanged to Tramadol. The patient took her first dose last night and she is concerned this caused her to fall. She also witnessed the patient saying off the wall statements when EMS had arrived. She also reported to her daughter that she had been constipated. Daughter believes her last BM may have been around 4 days ago. Since arrival to the hospital she has reported to her daughter that she has been experiencing LLQ pain. Of note, the patient had a kyphoplasty on 07/[facility]. Initial VS at presentation: 97.9? F, HR 96, RR 16, 174/90, and 100% on RA. ED workup showed: WBC 234.3, hemoglobin 10.0 (previously 9.3 on 07/14/2024), INR 1.5, no significant electrolyte derangements, creatinine 0.73 and GFR >60, glucose 142, initial troponin negative, and UA showed 1+ protein, low +ketones, 3+ blood, greater than 100 RBC, and 6-10 WBC with no epithelial cells or bacteria. CXR showed mild interstitial prominence, nonspecific and stable cardiomegaly. Head CT showed normal aging brain. C-spine CT showed no acute fracture, reversal the normal cervical lordosis with grade 1 anterolisthesis of C3 over C4, degenerative spondylitic changes. CT thoracic/lumbar showed subacute burst fracture of T7 stable from 06/27/2024, severe thoracic and lumbar spondylosis, and scoliosis. CT of the abdomen/pelvis showed distal sigmoid diverticulosis with small potentially intramural abscess and cardiomegaly with biatrial enlargement. Review of Systems Review of Systems: ROS unobtainable: Yes unobtainable due to mental status (Altered) [facility] Past Medical History Medical History (Updated 07/20/24 @ 13:25 by GALILEA Barraza) Atrial fibrillation Cataract Anemia Kidney stones Heart murmur Osteoporosis Postmenopausal Colovaginal fistula Vitamin D deficiency Hypertension Chronic anemia Bacteremia due to Klebsiella pneumoniae Mild pulmonary hypertension Moderate mitral regurgitation Mild aortic stenosis Closed fracture of greater trochanter of left femur History of UTI Chronic lymphocytic leukemia Surgical History Surgical History H/O cataract extraction History of colonoscopy with polypectomy History of total abdominal hysterectomy History of laparoscopic cholecystectomy Family History Family History Father Family history of lung cancer Patient's father is Mother Patient's mother is Social History Social History Social History: She is and lives home alone. She has 3 children. Her son and daughter that live nearby that durable power research attorney for healthcare. She has never smoked. She worked for [employer]. No alcohol marijuana or illicit drugs. Code status full code Smoking status: Never smoker Second hand tobacco smoke exposure: Yes Alcohol intake: never Substance use: never Substance use type: does not use Do You Feel Safe in your Home?: Yes Lack of Transportation: No Lack of Food: Never True Current Housing: I Have Housing Concerned About Future Housing: No Difficulty Paying Gas/Electric Bills: No Difficulty Paying for Meds: No Currently Unemployed: No Education: High School Diploma/GED Difficulty w/ Childcare or Family Care: No Living arrangements: alone Occupation/Education: retired Gender identity (if verbalized by the patient): Female Spiritual care concerns: No Meds Home Medications and Allergies Home Medications ?Medication ?Instructions ?Recorded ?Confirmed ?Type ascorbic acid (vitamin C) 100 mg 100 mg PO DAILY 03/17/23 07/20/24 History chewable tablet omega-3 150 hl-fxv-lup-fish oil 1 cap PO DAILY 03/17/23 07/20/24 History 500 mg-D3 200 unit capsule,delayed rel ([place]-3 Plus Vitamin D3) bnrlicgb-fgbj-ytvis acid 240 1 tablet PO DAILY 04/02/23 07/20/24 History mcg-vit K 120 woq-imunnh-mbmp 293 tablet (Alive Women's 50 Plus (fruit-veg blend)) apixaban 2.5 mg tablet (Eliquis) 2.5 mg PO Q12HR #60 tabs 04/07/23 07/20/24 Rx metoprolol tartrate 25 mg tablet 25 mg PO BID 10/29/23 07/20/24 History cyanocobalamin (vitamin B-12) 1,000 mcg PO DAILY 12/08/23 07/20/24 History 1,000 mcg tablet nystatin 100,000 unit/gram topical 1 applic topical BID #15 grams 07/07/24 07/20/24 Rx powder zanubrutinib 80 mg capsule See Rx Instructions .Route .COMPLEX 07/07/24 07/20/24 History allopurinol 300 mg tablet 300 mg PO DAILY 07/20/24 07/20/24 History Allergies Allergy/AdvReac Type Severity Reaction Status Date / Time tetracycline Allergy Unknown Unknown Verified 07/07/24 09:06 ibrutinib AdvReac Rash Verified 07/07/24 09:06 Vital Signs Vital Signs - 24 hr 07/20/24 07:29 07/20/24 07:31 07/20/24 08:01 Temperature 97.9 F 97.9 F Pulse Rate 96 90 87 Respiratory Rate 16 20 18 Blood Pressure 174/90 H 174/90 H 189/94 H Pulse Oximetry 100 97 98 Oxygen Delivery Room Air 07/20/24 08:30 07/20/24 09:01 07/20/24 09:31 Temperature 97.8 F 97.6 F Pulse Rate 83 88 88 Respiratory Rate 18 15 20 Blood Pressure 172/90 H 165/101 H 157/89 H Pulse Oximetry 98 99 97 Oxygen Delivery 07/20/24 10:13 07/20/24 10:31 07/20/24 11:00 Temperature 97.8 F Pulse Rate 105 H 115 H 102 H Respiratory Rate 16 20 18 Blood Pressure 134/105 H 172/108 H Pulse Oximetry 97 96 Oxygen Delivery 07/20/24 11:01 07/20/24 11:15 07/20/24 11:30 Temperature Pulse Rate 96 106 H 107 H Respiratory Rate 20 15 12 Blood Pressure 188/95 H Pulse Oximetry 100 Oxygen Delivery 07/20/24 11:31 07/20/24 11:45 07/20/24 12:00 Temperature Pulse Rate 112 H 112 H 123 H Respiratory Rate 12 14 13 Blood Pressure 168/105 H Pulse Oximetry Oxygen Delivery 07/20/24 12:15 07/20/24 12:31 07/20/24 12:45 Temperature Pulse Rate 119 H 114 H 111 H Respiratory Rate 25 H 14 15 Blood Pressure 161/82 H Pulse Oximetry 100 Oxygen Delivery Exam Const: General: no acute distress and uncomfortable Other: , female, elderly, nontoxic appearance HENMT: Face/Nose/Sinus: Normal nares present Mouth: Yes moist mucous membranes Eyes: General: appearance normal, both eyes and all related structures Sclera: sclerae normal Pupils: Equal, round and reactive pupils present EOM: EOMs intact bilaterally Resp: Effort & Inspection: normal respiratory effort Auscultation: clear to auscultation bilaterally Cardio: Rate: regular rate Rhythm: abnormal rhythm Other: S1-S2 present without murmur, rub, ectopy GI: Other: Abdomen soft, tender in the left lower quadrant. Normoactive bowel sounds in the upper quadrants, modestly hypoactive in the lower quadrants. Skin: General skin exam: normal color and no rashes or lesions noted Wounds: no wounds Neuro: Other: Moving all extremities, alert. Confused. Extrem: General: normal to inspection Psych: Other: Poor insight and judgment at present. H&P: Results Labs Labs: Short CBC 07/20/24 Range/Units 07:26 WBC 234.3 H* (4.5-10.0) K/mm3 Hgb 10.0 L (12.0-15.0) g/dL Hct 35.4 L (37.0-47.0) % Plt Count 229 (150-375) k/mm3 BMP 07/20/24 07:26 Sodium 135 L Potassium 4.0 Chloride 100 Carbon Dioxide 24 BUN 12 Creatinine 0.73 Glucose 142 H Calcium 9.6 Cardiac Enzymes 07/20/24 07/20/24 Range/Units 07:27 07:29 Total Creatine Kinase 59 (30-135) U/L Troponin I < 0.012 (0.000-0.034) ng/mL Liver Function 07/20/24 Range/Units 07:26 Total Bilirubin 2.1 H (0.2-1.3) mg/dL AST 20 (14-36) U/L ALT 8 (6-35) U/L Alkaline Phosphatase 89 (38-126) U/L Albumin 4.0 (3.5-5.1) g/dL Urine 07/20/24 Range/Units 07:26 Urine Color Yellow (Yellow) Urine Appearance Clear (Clear) Urine pH 7.5 (5.0-9.0) Ur Specific [place] 1.008 (1.001-1.035) Urine Protein 1+ H (Negative) mg/dL Urine Glucose (UA) Negative (Negative) mg/dL Assessment and Plan Assessment and plan (1) Sepsis: Qualifiers: Sepsis acute organ dysfunction status: without acute organ dysfunction Sepsis type: sepsis due to unspecified organism Qualified Code(s): A41.9 - Sepsis, unspecified organism Code(s): A41.9 - Sepsis, unspecified organism Status: Acute Assessment and Plan: - meets SIRS criteria: HR, WBC - lactic acid ordered, if elevated will and procalcitonin - 30 mL/kg = 1500, will start with 1L bolus and assess toleration. Has already received 200 mL. - suspected source: Diverticulitis - started on Levaquin and Flagyl - blood cultures drawn on 07/21, follow (2) Diverticulitis of intestine with abscess: Qualifiers: Diverticulitis bleeding: without bleeding Diverticulitis site: large intestine Qualified Code(s): K57.20 - Diverticulitis of large intestine with perforation and abscess without bleeding Code(s): K57.80 - Diverticulitis of intestine, part unspecified, with perforation and abscess without bleeding Status: Acute Assessment and Plan: - CT abdomen/pelvis: 1. Distal sigmoid diverticulitis with small potentially intramural abscess. 2. Cardiomegaly with biatrial enlargement. - general surgery consulted - started on Levaquin and Flagyl on 07/20 - analgesics and antipyretics p.r.n. - clear liquid diet - serial abdominal exams - IV fluids: NS at 75 mL/hour - monitor CBC (3) Acute confusion: Code(s): R41.0 - Disorientation, unspecified Status: Acute Assessment and Plan: - CT head: Normal aging brain - neuro checks q.4 (4) Fall from ground level: Code(s): W18.30XA - Fall on same level, unspecified, initial encounter Status: Acute Assessment and Plan: - CT cervical: No acute fracture. Reversal of the normal cervical lordosis with grade 1 anterolisthesis of C3 over C4. spondylitic changes, as above. - CT lumbar/thoracic: 1. Subacute burst fracture of T7, stable from 06/27/2024. 2. Severe thoracic and lumbar spondylosis. 3. Scoliosis. - fall precautions - may need PT/OT eval and treat, reassess in 24 hours if patient has improved mentation. (5) CLL (chronic lymphocytic leukemia): Code(s): C91.10 - Chronic lymphocytic leukemia of B-cell type not having achieved remission Status: Chronic Assessment and Plan: - WBC 234 - follows with Paige BURNETTE (6) Chronic anemia: Code(s): D64.9 - Anemia, unspecified Status: Chronic Assessment and Plan: - Hgb 10, previously 9.3 on 07/14/2024 - continue iron and B12 (7) Hypertension: Qualifiers: Hypertension type: primary hypertension Qualified Code(s): I10 - Essential (primary) hypertension Code(s): I10 - Essential (primary) hypertension Status: Chronic Assessment and Plan: - chronic, currently 161/82 - continue home medications: Metoprolol 25 mg b.i.d. - monitor Plan Will forego opiates at this time due to concern for confusion/falls related to recent hydrocodone and tramadol use. Discussed this plan with the patient's daughter who is agreeable. Will continue to monitor patient's pain. Diet: Clear liquid GI Prophylaxis: Not currently indicated DVT Prophylaxis: Eliquis Lines: Peripheral Code Status: DNR Quality VTE Prophylaxis VTE prophylaxis: pharmacologic ordered Hospitalist [facility] Advance Care Plan I have confirmed that the patient's Advanced Care Plan is present, code status is documented, or surrogate decision maker is listed in patient medical record.: Yes Medication Reconciliation I have utilized all available resources to obtain, update and review the patients current medications (includes all prescriptions, OTC, herbals, cannabis, and nutritional supplements).: Yes
--- NOTE | 2024-07-20 13:03 | P.CONGS_ITS ---
Assessment and Plan Assessment and plan (1) Diverticulitis of intestine with abscess: Code(s): K57.80 - Diverticulitis of intestine, part unspecified, with perforation and abscess without bleeding Status: Acute Assessment and Plan: CT scan reviewed and showed evidence of distal sigmoid diverticulitis with a small potentially intramural abscess. She has a history of diverticulitis with possible colovaginal fistula about 2 years ago. She was treated with antibiotics and percutaneous drainage. There is no evidence of a fistula on the current CT scan. She is not having any abdominal pain at this time and no tenderness on exam. We would recommend to continue IV antibiotics with IV fluids. Will start her on a clear liquid diet today to see how she tolerates this. Continue to monitor with serial abdominal exams and labs. (2) CLL (chronic lymphocytic leukemia): Code(s): C91.10 - Chronic lymphocytic leukemia of B-cell type not having achieved remission Status: Chronic (3) Acute confusion: Code(s): R41.0 - Disorientation, unspecified Status: Acute (4) Atrial fibrillation: Qualifiers: Atrial fibrillation type: unspecified Qualified Code(s): I48.91 - Unspecified atrial fibrillation Code(s): I48.91 - Unspecified atrial fibrillation Status: Acute (5) Mild aortic stenosis: Code(s): I35.0 - Nonrheumatic aortic (valve) stenosis Status: Acute (6) Anticoagulant long-term use: Code(s): Z79.01 - long term acute care registered nurse (current) use of anticoagulants Status: Acute (7) Hypertension: Qualifiers: Hypertension type: primary hypertension Qualified Code(s): I10 - Essential (primary) hypertension Code(s): I10 - Essential (primary) hypertension Status: Chronic Plan I have discussed the patient's case and plan of care with Dr. Vu. History of Present Illness Consult details Consult date: 07/20/24 Reason for consult: other (Diverticulitis with abscess) Requesting physician: Anson Noel MD Narrative: This is an 88-year-old woman with history of CLL for over 20 years currently on treatment with Brukinsa followed by oncology, atrial fibrillation on Eliquis, multiple other medical problems, and history of diverticulitis, who we have been asked to see in surgical consultation for diverticulitis with abscess. She is known to our service from hospitalization in May 2022 when she was treated for diverticulitis with abscess and rectal/vaginal fistula. She was treated with antibiotics and percutaneous drainage. She eventually improved and was followed as an outpatient. She opted out of any surgical management. She reportedly has not had any issues up until the past few days. She recently had a kyphoplasty 3 days ago. She has been having some abdominal pain, which they related to referred pain from her back surgery. She reports this is diffuse pain. No nausea or vomiting. No fevers or chills. Her daughter was staying with her after the kyphoplasty and left the day before yesterday. Her other daughter came and checked in on her this morning and found her floor at home. Her daughter is at the bedside now and helps provide history as the patient is a poor historian. She is typically slightly confused at baseline, but her daughter reports she has significantly more confused today. She was complaining of some abdominal pain when lying on the floor. She was also soiled in urine. They called EMS and she was brought into the ED for evaluation. She has had a CT scan of the head, cervical, thoracic, and lumbar spine without any acute findings. CT scan of the abdomen and pelvis showed distal sigmoid diverticulitis with small potentially intramural abscess. Cardiomegaly with biatrial enlargement. Our service was consulted for the diverticulitis with abscess and she is now seen in the ED. She is not complaining of any abdominal pain at this time. Only previous abdominal surgeries including total abdominal hysterectomy and cholecystectomy. Review of Systems 2 Review of Systems: ROS unobtainable: Yes unobtainable due to mental status [facility] Past Medical History Medical History (Updated 07/20/24 @ 13:25 by GALILEA Barraza) Atrial fibrillation Cataract Anemia Kidney stones Heart murmur Osteoporosis Postmenopausal Colovaginal fistula Vitamin D deficiency Hypertension Chronic anemia Bacteremia due to Klebsiella pneumoniae Mild pulmonary hypertension Moderate mitral regurgitation Mild aortic stenosis Closed fracture of greater trochanter of left femur History of UTI Chronic lymphocytic leukemia Surgical History Surgical History H/O cataract extraction History of colonoscopy with polypectomy History of total abdominal hysterectomy History of laparoscopic cholecystectomy Family History Family History Father Family history of lung cancer Patient's father is Mother Patient's mother is Social History Social History Social History: She is and lives home alone. She has 3 children. Her son and daughter that live nearby ER that durable power commercial attorney for healthcare. She has never smoked. She worked for [employer]. No alcohol marijuana or illicit drugs. Code status full code Smoking status: Never smoker Second hand tobacco smoke exposure: Yes Alcohol intake: never Substance use: never Substance use type: does not use Do You Feel Safe in your Home?: Yes Lack of Transportation: No Lack of Food: Never True Current Housing: I Have Housing Concerned About Future Housing: No Difficulty Paying Gas/Electric Bills: No Difficulty Paying for Meds: No Currently Unemployed: No Education: High School Diploma/GED Difficulty w/ Childcare or Family Care: No Living arrangements: alone Occupation/Education: retired Gender identity (if verbalized by the patient): Female Spiritual care concerns: No Meds Home Medications and Allergies Home Medications ?Medication ?Instructions ?Recorded ?Confirmed ?Type ascorbic acid (vitamin C) 100 mg 100 mg PO DAILY 03/17/23 07/07/24 History chewable tablet ferrous sulfate 325 mg (65 mg 325 mg PO DAILY 03/17/23 07/07/24 History iron) tablet (iron) omega-3 150 wz-mcx-act-fish oil 1 cap PO DAILY 03/17/23 07/07/24 History 500 mg-D3 200 unit capsule,delayed rel ([place]-3 Plus Vitamin D3) camhyxjb-robx-qxwpn acid 240 1 tablet PO DAILY 04/02/23 07/07/24 History mcg-vit K 120 igk-pppupu-ayrl 293 tablet (Alive Women's 50 Plus (fruit-veg blend)) apixaban 2.5 mg tablet (Eliquis) 2.5 mg PO Q12HR #60 tabs 04/07/23 07/07/24 Rx metoprolol tartrate 25 mg tablet 25 mg PO BID 10/29/23 07/07/24 History cyanocobalamin (vitamin B-12) 1,000 mcg PO DAILY 12/08/23 07/07/24 History 1,000 mcg tablet hydrocodone 10 mg-acetaminophen 1 tablet PO Q8H PRN 07/07/24 07/07/24 History 325 mg tablet nystatin 100,000 unit/gram topical 1 applic topical BID #15 grams 07/07/24 07/07/24 Rx powder zanubrutinib 80 mg capsule See Rx Instructions .Route .COMPLEX 07/07/24 07/07/24 History Allergies Allergy/AdvReac Type Severity Reaction Status Date / Time tetracycline Allergy Unknown Unknown Verified 07/07/24 09:06 ibrutinib AdvReac Rash Verified 07/07/24 09:06 Vital Signs Vital Signs - 24 hr 07/20/24 07:29 07/20/24 07:31 07/20/24 08:01 Temperature 97.9 F 97.9 F Pulse Rate 96 90 87 Respiratory Rate 16 20 18 Blood Pressure 174/90 H 174/90 H 189/94 H Pulse Oximetry 100 97 98 Oxygen Delivery Room Air 07/20/24 08:30 07/20/24 09:01 07/20/24 09:31 Temperature 97.8 F 97.6 F Pulse Rate 83 88 88 Respiratory Rate 18 15 20 Blood Pressure 172/90 H 165/101 H 157/89 H Pulse Oximetry 98 99 97 Oxygen Delivery 07/20/24 10:13 07/20/24 10:31 07/20/24 11:00 Temperature 97.8 F Pulse Rate 105 H 115 H 102 H Respiratory Rate 16 20 18 Blood Pressure 134/105 H 172/108 H Pulse Oximetry 97 96 Oxygen Delivery 07/20/24 11:01 07/20/24 11:15 07/20/24 11:30 Temperature Pulse Rate 96 106 H 107 H Respiratory Rate 20 15 12 Blood Pressure 188/95 H Pulse Oximetry 100 Oxygen Delivery 07/20/24 11:31 07/20/24 11:45 07/20/24 12:00 Temperature Pulse Rate 112 H 112 H 123 H Respiratory Rate 12 14 13 Blood Pressure 168/105 H Pulse Oximetry Oxygen Delivery 07/20/24 12:15 07/20/24 12:31 07/20/24 12:45 Temperature Pulse Rate 119 H 114 H 111 H Respiratory Rate 25 H 14 15 Blood Pressure 161/82 H Pulse Oximetry 100 Oxygen Delivery Exam 2 Const: General: comfortable and no acute distress Nutritional Appearance: a verage body habitus Orientation/consciousness: confusion HENMT: Head: normocephalic and atraumatic Ears: hearing grossly normal bilaterally Mouth: Yes moist mucous membranes Eyes: General: appearance normal, both eyes and all related structures P upils: Equal, round and reactive pupils present Neck: Neck: normal visual inspection and full ROM Resp: Effort & Inspection: no respiratory distress Auscultation: clear to auscultation bilaterally Cardio: Rate: regular rate Rhythm: regular rhythm Peripheral pulses: P eripheral pulses 2+ throughout GI: Inspection: non-distended and no visible herniation GI Palp: Yes Soft to palpation, No Tenderness to palpation present (GI), No Guarding due to palpation present (GI) and No Rebound tenderness present Auscultation: normal bowel sounds Skin: General skin exam: normal color Neuro: General: moves all extremities and no focal motor deficits Speech: n ormal speech Motor exam (neuro): 5/5 motor strength present throughout Extrem: General: normal to inspection and no edema Psych: Attitude: cooperative Insight: Fair insight present (Psych) J udgement: Limited judgement present (Psych) Results Labs 07/20/24 07:26 07/20/24 07:26 Labs: Abnormal lab results 07/20/24 07/20/24 07/20/24 Range/Units 07:24 07:26 07:27 WBC 234.3 H* (4.5-10.0) K/mm3 RBC 3.52 L (4.2-5.4) M/mm3 Hgb 10.0 L (12.0-15.0) g/dL Hct 35.4 L (37.0-47.0) % MCV 100.6 H (80-100) fl MCHC 28.2 L (32-36) g/dl RDW 19.7 H (11.5-14.5) % MPV 10.5 H (7.4-10.4) fl Neut % (Auto) 3.7 L (45.5-73.1) % Lymph % (Auto) 95.9 H (18.3-44.2) % [place] % (Auto) 0.1 L (2.6-8.5) % Baso % (Auto) 0.0 L (0.2-1.2) % Lymph # (Auto) 224.84 H (0.9-3.2) K/mm3 Abs Immat Gran (auto) 0.62 H (0.00-0.031) K/mm3 Absolute Neuts (auto) 8.6 H (1.3-6.7) K/mm3 PT 18.1 H (11.1-14.7) Seconds Sodium 135 L (137-145) mmol/L Glucose 142 H (65-110) mg/dL POC Capillary Glucose 135 H (65-105) mg/dl Total Bilirubin 2.1 H (0.2-1.3) mg/dL Urine Protein 1+ H (Negative) mg/dL Urine Ketones 1+ H (Negative) mg/dL Ur Blood (Man) 3+ H (Negative) Urine RBC >100 H (0-2) /hpf Urine WBC 6-10 H (0-3) /hpf Diabetes panel 07/20/24 Range/Units 07:26 Sodium 135 L (137-145) mmol/L Potassium 4.0 (3.4-5.0) mmol/L Chloride 100 (98-107) mmol/L Carbon Dioxide 24 (22-30) mmol/L BUN 12 (7-17) mg/dL Creatinine 0.73 (0.7-1.0) mg/dL Glucose 142 H (65-110) mg/dL Calcium 9.6 (8.4-10.2) mg/dL AST 20 (14-36) U/L ALT 8 (6-35) U/L Alkaline Phosphatase 89 (38-126) U/L Total Protein 7.0 (6.3-8.2) g/dL Albumin 4.0 (3.5-5.1) g/dL Calcium panel 07/20/24 Range/Units 07:26 Calcium 9.6 (8.4-10.2) mg/dL Albumin 4.0 (3.5-5.1) g/dL Pituitary panel 07/20/24 Range/Units 07:26 Sodium 135 L (137-145) mmol/L Potassium 4.0 (3.4-5.0) mmol/L Chloride 100 (98-107) mmol/L Carbon Dioxide 24 (22-30) mmol/L BUN 12 (7-17) mg/dL Creatinine 0.73 (0.7-1.0) mg/dL Glucose 142 H (65-110) mg/dL Calcium 9.6 (8.4-10.2) mg/dL Adrenal panel 07/20/24 Range/Units 07:26 Sodium 135 L (137-145) mmol/L Potassium 4.0 (3.4-5.0) mmol/L Chloride 100 (98-107) mmol/L Carbon Dioxide 24 (22-30) mmol/L BUN 12 (7-17) mg/dL Creatinine 0.73 (0.7-1.0) mg/dL Glucose 142 H (65-110) mg/dL Calcium 9.6 (8.4-10.2) mg/dL Total Bilirubin 2.1 H (0.2-1.3) mg/dL AST 20 (14-36) U/L ALT 8 (6-35) U/L Alkaline Phosphatase 89 (38-126) U/L Total Protein 7.0 (6.3-8.2) g/dL Albumin 4.0 (3.5-5.1) g/dL All other labs normal. Imaging Additional studies: ITS Impressions Chest X-Ray 07/20/24 07:47 Impression: Mild interstitial prominence, nonspecific. Correlate for mild interstitial edema, COPD, or other chronic interstitial change. Stable cardiomegaly. Head CT 07/20/24 07:55 IMPRESSION: 1. Normal aging brain. Cervical Spine CT 07/20/24 07:57 Impression: No acute fracture. Reversal of the normal cervical lordosis with grade 1 anterolisthesis of C3 over C4. Degenerative spondylitic changes, as above. Thoracic/Lumbar Spine CT 07/20/24 08:00 IMPRESSION: 1. Subacute burst fracture of T7, stable from 06/27/2024. 2. Severe thoracic and lumbar spondylosis. 3. Scoliosis. Abdomen/Pelvis CT 07/20/24 09:56 IMPRESSION: 1. Distal sigmoid diverticulitis with small potentially intramural abscess. 2. Cardiomegaly with biatrial enlargement.
--- NOTE | 2024-07-20 13:29 | ADMGEN ---
This patient, Kemi Ford, was admitted to 3 [facility] Surg Room 317-01. Patient/family oriented to hospital policies and general routines including ID bracelet, bed and alarms, visiting hours, pain management, procedures, bathroom and other care routines, personal items, smoking policy, room service/diet, and visiting hours. Information on how to activate the Rapid Response Team has been discussed. Patient/Family are encouraged to report perceived risks to care and to ask questions if they do not understand what they are told or what they should do.
[2024-07-20] MEDS: LACTATED RINGERS 1,000 ML 999 ML IV CONT (13:34)
[2024-07-20 14:59] LABS: Magnesium 1.6 mg/dL (1.6-2.3)
[2024-07-20 15:01] LABS: Lactic Acid Reflex 1.6 mmol/L (0.7-2.0)
[2024-07-20] MEDS: ACETAMINOPHEN 325 MG TABLET 650 MG PO (17:14)
[2024-07-20] MEDS: ONDANSETRON INJ 4 MG/2 ML VIAL IV PUSH (17:26)
[2024-07-21] VITALS (11 sets, daily range): BP systolic 121–150; BP diastolic 67–99; PULSE 79–98; RESP 14–20; TEMP 36.4–37.1; O2SAT 96–100
--- NOTE | 2024-07-21 01:12 | PHAR ---
HOME MEDICATION: BRUKINSA (ZANUBRUTINIB) 80 MG CAPSULES, TAKE 2 CAPSULES (160 MG) BY MOUTH 2 TIMES DAILY, VERIFIED IN PHARMACY 07/21/24 @ 0973
[2024-07-21] MEDS: ACETAMINOPHEN 325 MG TABLET 650 MG PO ×2 (02:16→19:51)
[2024-07-21] MEDS: metroNIDAZOLE 500 MG/ISO 100ML 500 MG/100 ML BAG 100 MG IVPB ×3 (06:02→22:16)
[2024-07-21] MEDS: SODIUM CHLORIDE 0.9% IV 1,000 ML 75 ML IV CONT (06:04)
[2024-07-21 07:46] LABS: Hemoglobin 9.1 g/dL (12.0-15.0); Immature Granulocyte Absolute 0.22 K/mm3 (0.00-0.031); Immature Granulocyte Percent A 0.1 % (0-0.5); Lymphocytes Absolute Auto 159.49 K/mm3 (0.9-3.2); Mean Corpuscular HGB Conc 27.6 g/dl (32-36); Mean Corpuscular Hemoglobin 27.5 pg (26-34); Mean Corpuscular Volume 99.7 fl (80-100); Mean Platelet Volume 10.4 fl (7.4-10.4); Monocytes Absolute Auto 0.3 K/mm3 (0.1-0.6); Monocytes Percent Auto 0.2 % (2.6-8.5); Neutrophils Absolute Auto 6.1 K/mm3 (1.3-6.7); Neutrophils Percent Auto 3.7 % (45.5-73.1); Platelet Count Result 190 k/mm3 (150-375); Red Blood Count 3.31 M/mm3 (4.2-5.4); Red Cell Distribution Width 19.1 % (11.5-14.5)
[2024-07-21 07:56] LABS: White Blood Count 166.2 K/mm3 (4.5-10.0)
[2024-07-21 08:01] LABS: Alanine Aminotransferase 7 U/L (6-35); Albumin Level 3.2 g/dL (3.5-5.1); Alkaline Phosphatase 67 U/L (38-126); Anion Gap 7 mmol/L (4-12); Aspartate Amino Transferase 20 U/L (14-36); Bilirubin,Total 1.3 mg/dL (0.2-1.3); Blood Urea Nitrogen 9 mg/dL (7-17); Carbon Dioxide 25 mmol/L (22-30); Chloride 104 mmol/L (98-107); Estimated Glomerular Filt Rate > 60; Glucose 98 mg/dL (65-110); Potassium 3.4 mmol/L (3.4-5.0); Sodium 136 mmol/L (137-145)
--- NOTE | 2024-07-21 08:09 | P.PNIM_ITS ---
Progress Note: A&P Assessment and Plan (1) Acute confusion: Code(s): R41.0 - Disorientation, unspecified Status: Acute Assessment and Plan: Likely secondary to acute infection - CT head: Normal aging brain - neuro checks q.4 Patient AOx3 on assessment. (2) Fall from ground level: Code(s): W18.30XA - Fall on same level, unspecified, initial encounter Status: Acute Assessment and Plan: Per chart review, patients daughter found her down at 7 pm on 07/19, last known well was 6:30 am that morning. - CK WNL - CT head: Normal aging brain - CT cervical: No acute fracture. Reversal of the normal cervical lordosis with grade 1 anterolisthesis of C3 over C4. Degenerative spondylitic changes, as above. - CT lumbar/thoracic: 1. Subacute burst fracture of T7, stable from 06/27/2024. Burst fractures of T8 and T10 with changes of vertebroplasty. 2. Severe thoracic and lumbar spondylosis. 3. Scoliosis. - fall precautions - PT/OT (3) Sepsis: Code(s): A41.9 - Sepsis, unspecified organism Status: Acute Assessment and Plan: - meets SIRS criteria: HR, WBC (leukocytosis also 2/2 CLL) - lactic acid 1.6 - 30 mL/kg = 1500, will start with 1L bolus and assess toleration. Has already received 200 mL. - suspected source: Diverticulitis - started on Levaquin and Flagyl - blood cultures drawn on 07/21: pending - See plan below #4 diverticulitis (4) Diverticulitis of intestine with abscess: Code(s): K57.80 - Diverticulitis of intestine, part unspecified, with perforation and abscess without bleeding Status: Acute Assessment and Plan: - CT abdomen/pelvis: 1. Distal sigmoid diverticulitis with small potentially intramural abscess. 2. Cardiomegaly with biatrial enlargement. - antibiotics: Levaquin and Flagyl started on 07/20 - analgesics and antipyretics p.r.n. - diet: clear liquid diet - serial abdominal exams - IV fluids: NS at 75 mL/hour - Monitor vital signs, I&Os, track stool output, watch for bloody stools, neuro status and patient is a fall risk - Monitor serum electrolytes and CBC - general surgery consulted Continue IV antibiotics with IV fluids Continue to monitor with serial abdominal exams and labs. (5) CLL (chronic lymphocytic leukemia): Code(s): C91.10 - Chronic lymphocytic leukemia of B-cell type not having achieved remiss ion Status: Chronic Assessment and Plan: - follows with Paige BURNETTE (6) Chronic anemia: Code(s): D64.9 - Anemia, unspecified Status: Chronic Assessment and Plan: Hgb 10 on admission, previously 9.3 on 07/14/2024 - H/H 10.4/31.8 on am labs - No signs of active bleeding - continue iron and B12 - Monitor (7) Hypertension: Qualifiers: Hypertension type: primary hypertension Qualified Code(s): I10 - Essential (primary) hypertension Code(s): I10 - Essential (primary) hypertension Status: Chronic Assessment and Plan: - chronic, continue home medications - Metoprolol 25 mg b.i.d. - monitor (8) Burst fracture of thoracic vertebra: Code(s): S22.001A - Stable burst fracture of unspecified thoracic vertebra, initial encounter for closed fracture Status: Acute Assessment and Plan: Per daughter patient underwent the vertebroplasty on Wednesday, 07/[address] Sanabria. She has no restrictions with ambulation besides requiring the TLSO brace which is in the room. - CT lumbar/thoracic: 1. Subacute burst fracture of T7, stable from 06/27/2024. Burst fractures of T8 and T10 with changes of vertebroplasty. Time Spent With Patient Time with patient: 25 - 35 minutes Subjective Date/time seen: 07/21/24 08:09 Interval history: 88 year old female with past medical history of chronic lymphocytic leukemia, hypertension, chronic anemia, mild pulmonary hypertension, and mild aortic stenosis presents to the hospital with fall and confusion. Patient is pleasant lying comfortably in bed with daughter at bedside. She continues to endorse mild pain to the left lower quadrant but denies any nausea /vomiting. She has no other complaints denying chest pain, shortness a breath, palpitations, dizziness/lightheadedness. Per daughter patient underwent a vert ebroplasty for her T8 and T10 vertebra on Wednesday with Dr. Sanabria. Patient's daughter states she had no restrictions following the procedure besides wearing the TLSO brace with ambulation. PT/OT consulted. Review of Systems Review of Systems: All systems reviewed & are unremarkable except as noted in HPI and below Exam Narrative: AF HR 83 RR 14 Spo2 98 BP 150/99 General: female in no acute respiratory distress who is nontoxic appearing, lying semi recumbent in bed. HEENT: Normocephalic. Atraumatic. Extraocular movement intact. Sclera clear and anicteric. . No facial asymmetry. Chest: Lungs are clear to auscultation bilaterally. No wheezes or crackles. CV: Heart was regular rate and rhythm. S1-S2. No murmurs, gallops, or rubs. Abd: Abdomen was soft. Slight tenderness to LLQ. Nondistended. Positive bowel sounds. No organomegaly or masses. Ext: No clubbing, cyanosis, or edema. 2+ DP pulses bilaterally. Neuro: Patient is alert and oriented x3. Speech is clear. Objective Data Vital Signs Vital Signs: Vital Signs - 24 hr 07/20/24 08:30 07/20/24 09:01 07/20/24 09:31 Temperature 97.8 F 97.6 F Pulse Rate 83 88 88 Respiratory Rate 18 15 20 Blood Pressure 172/90 H 165/101 H 157/89 H Pulse Oximetry 98 99 97 Oxygen Delivery 07/20/24 10:13 07/20/24 10:31 07/20/24 11:00 Temperature 97.8 F Pulse Rate 105 H 115 H 102 H Respiratory Rate 16 20 18 Blood Pressure 134/105 H 172/108 H Pulse Oximetry 97 96 Oxygen Delivery 07/20/24 11:01 07/20/24 11:15 07/20/24 11:30 Temperature Pulse Rate 96 106 H 107 H Respiratory Rate 20 15 12 Blood Pressure 188/95 H Pulse Oximetry 100 Oxygen Delivery 07/20/24 11:31 07/20/24 11:45 07/20/24 12:00 Temperature Pulse Rate 112 H 112 H 123 H Respiratory Rate 12 14 13 Blood Pressure 168/105 H Pulse Oximetry Oxygen Delivery 07/20/24 12:15 07/20/24 12:31 07/20/24 12:45 Temperature Pulse Rate 119 H 114 H 111 H Respiratory Rate 25 H 14 15 Blood Pressure 161/82 H Pulse Oximetry 100 Oxygen Delivery 07/20/24 14:00 07/20/24 16:00 07/20/24 16:00 Temperature 97.9 F Pulse Rate 117 H 117 H 87 Respiratory Rate 20 20 Blood Pressure 151/100 H Pulse Oximetry 98 98 Oxygen Delivery Room Air 07/20/24 20:00 07/20/24 20:29 07/20/24 21:56 Temperature 97.4 F L Pulse Rate 89 107 H Respiratory Rate 14 Blood Pressure 168/104 H 168/90 H Pulse Oximetry 98 Oxygen Delivery 07/21/24 00:06 07/21/24 04:00 07/21/24 05:09 Temperature 97.6 F Pulse Rate 98 91 83 Respiratory Rate 14 Blood Pressure 150/99 H Pulse Oximetry 98 Oxygen Delivery Intake/Output Intake/Output: Intake & Output 07/18/24 07/19/24 07/20/24 07/21/24 23:59 23:59 23:59 23:59 Intake Total 1032.5 1010 Output Total 1500 400 Balance -467.5 610 Meds/Results Medications: Active Medications Generic Name Dose Route Start Last Admin Trade Name Freq PRN Reason Stop Dose Admin Acetaminophen 650 mg 07/20/24 10:03 07/21/24 02:16 Acetaminophen 325 Mg Tablet PO 650 mg Q4H PRN Administration Mild Pain (1-3) or Fever Allopurinol 300 mg 07/21/24 09:00 Allopurinol 300 Mg Tablet PO DAILY MICHAEL Apixaban 2.5 mg 07/21/24 09:00 Apixaban 2.5 Mg Tablet PO Q12HR MICHAEL Ascorbic Acid 125 mg 07/21/24 09:00 Ascorbic Acid 125 Mg Tablet PO DAILY [facility] Cyanocobalamin 1,000 mcg 07/21/24 09:00 Cyanocobalamin 1,000 Mcg Tablet PO DAILY MICHAEL Fish Oil 1 gm 07/21/24 09:00 [place] 3 Polyunsat Fatty Acids 1 Gm Cap PO QAM [facility] Sodium Chloride 1,000 mls @ 75 mls/hr 07/20/24 10:05 07/21/24 06:04 Normal Saline Iv IV CONT 75 mls/hr .[id number] MICHAEL Administration Metronidazole 500 mg in 100 mls @ 100 mls/hr 07/20/24 12:00 07/21/24 06:02 Flagyl 500 Mg/Iso Soln 100 Ml IVPB 100 mls/hr Q8HR MICHAEL Administration Levofloxacin 750 mg 07/22/24 09:00 Levofloxacin 750 Mg Tablet PO Q48H MICHAEL Lidocaine 1 patch 07/21/24 00:15 Lidocaine 5% Patch TRANSDERM DAILY PRN back pain Metoprolol Tartrate 25 mg 07/21/24 09:00 Metoprolol Tartrate 25 Mg Tablet PO Q12HR MICHAEL Home Med ( 160 mg 07/21/24 09:00 Zanubrutinib 80 Mg PO 08/20/24 08:59 Capsule) Q12HR [facility] Ondansetron HCl 4 mg 07/20/24 10:03 07/20/24 17:26 Ondansetron Inj 4 Mg/2 Ml Vial IV PUSH 4 mg Q4H PRN Administration Nausea Radiology Results: ITS Impressions Chest X-Ray 07/20/24 07:47 Impression: Mild interstitial prominence, nonspecific. Correlate for mild interstitial edema, COPD, or other chronic interstitial change. Stable cardiomegaly. Head CT 07/20/24 07:55 IMPRESSION: 1. Normal aging brain. Cervical Spine CT 07/20/24 07:57 Impression: No acute fracture. Reversal of the normal cervical lordosis with grade 1 anterolisthesis of C3 over C4. Degenerative spondylitic changes, as above. Thoracic/Lumbar Spine CT 07/20/24 08:00 IMPRESSION: 1. Subacute burst fracture of T7, stable from 06/27/2024. 2. Severe thoracic and lumbar spondylosis. 3. Scoliosis. Abdomen/Pelvis CT 07/20/24 09:56 IMPRESSION: 1. Distal sigmoid diverticulitis with small potentially intramural abscess. 2. Cardiomegaly with biatrial enlargement. Labs Labs: Laboratory Results - last 24 hr 07/20/24 07/20/24 07/20/24 07:24 07:26 07:27 WBC 234.3 H* RBC 3.52 L Hgb 10.0 L Hct 35.4 L MCV 100.6 H MCH 28.4 MCHC 28.2 L RDW 19.7 H Plt Count 229 MPV 10.5 H Immature Gran % (Auto) 0.3 Neut % (Auto) 3.7 L Lymph % (Auto) 95.9 H [place] % (Auto) 0.1 L Eos % (Auto) 0.0 Baso % (Auto) 0.0 L Lymph # (Auto) 224.84 H [place] # (Auto) 0.3 Eos # (Auto) 0.0 Baso # (Auto) 0.0 Abs Immat Gran (auto) 0.62 H Absolute Neuts (auto) 8.6 H Absolute Nucleated RBC 0.000 Nucleated RBC % 0.0 Smudge Cells Moderate Platelet Estimate Adequate Anisocytosis 1+ Ovalocytes 1+ Schistocytes None seen PT 18.1 H INR 1.5 APTT 32.6 Sodium Potassium Chloride Carbon Dioxide Anion Gap BUN Creatinine Estim Creat Clear Calc Estimated GFR Glucose POC Capillary Glucose 135 H Lactic Acid Calcium Magnesium Total Bilirubin AST ALT Alkaline Phosphatase Total Protein Albumin Lipase 71 Influenza A (RT-PCR) Influenza B (RT-PCR) RSV (RT-PCR) SARS-CoV-2 RNA (RT-PCR) 07/20/24 07/20/24 07/21/24 08:08 14:36 07:20 WBC 166.2 H* RBC 3.31 L Hgb 9.1 L Hct 33.0 L MCV 99.7 MCH 27.5 MCHC 27.6 L RDW 19.1 H Plt Count 190 MPV 10.4 Immature Gran % (Auto) 0.1 Neut % (Auto) 3.7 L Lymph % (Auto) 96.0 H [place] % (Auto) 0.2 L Eos % (Auto) 0.0 Baso % (Auto) 0.0 L Lymph # (Auto) 159.49 H [place] # (Auto) 0.3 Eos # (Auto) 0.0 Baso # (Auto) 0.0 Abs Immat Gran (auto) 0.22 H Absolute Neuts (auto) 6.1 Absolute Nucleated RBC 0.000 Nucleated RBC % 0.0 Smudge Cells Platelet Estimate Anisocytosis Ovalocytes Schistocytes PT INR APTT Sodium 136 L Potassium 3.4 Chloride 104 Carbon Dioxide 25 Anion Gap 7 BUN 9 Creatinine 0.63 L Estim Creat Clear Calc Not Reportable Estimated GFR > 60 Glucose 98 POC Capillary Glucose Lactic Acid 1.6 Calcium 9.0 Magnesium 1.6 Total Bilirubin 1.3 AST 20 ALT 7 Alkaline Phosphatase 67 Total Protein 6.0 L Albumin 3.2 L Lipase Influenza A (RT-PCR) Negative Influenza B (RT-PCR) Negative RSV (RT-PCR) Negative SARS-CoV-2 RNA (RT-PCR) Negative Quality VTE Prophylaxis VTE prophylaxis: pharmacologic ordered
[2024-07-21 08:11] LABS: Platelet Estimate Adequate (Adequate)
[2024-07-21 08:13] LABS: Schistocytes None Seen; Smudge Cells MODERATE
[2024-07-21 08:14] LABS: Anisocytosis 1+; Ovalocytes 1+
[2024-07-21] MEDS: CYANOCOBALAMIN 1,000 MCG TABLET 1000 MCG PO (08:29)
[2024-07-21] MEDS: METOPROLOL TARTRATE 25 MG TABLET PO ×2 (08:29→19:51)
[2024-07-21] MEDS: ASCORBIC ACID 125 MG TABLET PO (08:29)
[2024-07-21] MEDS: allopurinoL 300 MG TABLET PO (08:29)
[2024-07-21] MEDS: OMEGA 3 POLYUNSAT FATTY ACIDS 1 GM CAP PO (08:29)
[2024-07-21] MEDS: APIXABAN 2.5 MG TABLET PO ×2 (08:33→19:51)
[2024-07-21] MEDS: ZANUBRUTINIB 80 MG 160 EACH PO ×2 (08:34→19:52)
[2024-07-22] VITALS (11 sets, daily range): BP systolic 127–148; BP diastolic 72–81; PULSE 73–97; RESP 18–20; TEMP 36.5–36.8; O2SAT 98–100
[2024-07-22] MEDS: SODIUM CHLORIDE 0.9% IV 1,000 ML 75 ML IV CONT (05:19)
[2024-07-22] MEDS: metroNIDAZOLE 500 MG/ISO 100ML 500 MG/100 ML BAG 100 MG IVPB ×3 (05:19→22:00)
[2024-07-22] MEDS: ACETAMINOPHEN 325 MG TABLET 650 MG PO (08:27)
[2024-07-22] MEDS: OMEGA 3 POLYUNSAT FATTY ACIDS 1 GM CAP PO (08:27)
[2024-07-22] MEDS: levoFLOXacin 750 MG TABLET PO (08:27)
[2024-07-22] MEDS: allopurinoL 300 MG TABLET PO (08:27)
[2024-07-22] MEDS: APIXABAN 2.5 MG TABLET PO ×2 (08:27→19:56)
[2024-07-22] MEDS: ASCORBIC ACID 125 MG TABLET PO (08:28)
[2024-07-22] MEDS: CYANOCOBALAMIN 1,000 MCG TABLET 1000 MCG PO (08:28)
[2024-07-22] MEDS: METOPROLOL TARTRATE 25 MG TABLET PO ×2 (08:28→19:56)
[2024-07-22] MEDS: ZANUBRUTINIB 80 MG 160 EACH PO ×2 (08:30→19:56)
[2024-07-22] MEDS: traMADol HCL (*CRX) 25 MG TABLET PO ×2 (12:53→18:02)
--- NOTE | 2024-07-22 13:41 | P.PNIM_ITS ---
Progress Note: A&P Assessment and Plan (1) Sepsis: Code(s): A41.9 - Sepsis, unspecified organism Status: Acute Assessment and Plan: - meets SIRS criteria: HR, WBC (leukocytosis also 2/2 CLL) - lactic acid 1.6 - 30 mL/kg = 1500, will start with 1L bolus and assess toleration. Has already received 200 mL. - suspected source: Diverticulitis - started on Levaquin and Flagyl - blood cultures drawn on 07/21: pending - See plan below for diverticulitis (2) Diverticulitis of intestine with abscess: Code(s): K57.80 - Diverticulitis of intestine, part unspecified, with perforation and abscess without bleeding Status: Acute Assessment and Plan: - CT abdomen/pelvis: 1. Distal sigmoid diverticulitis with small potentially intramural abscess. 2. Cardiomegaly with biatrial enlargement. - antibiotics: Levaquin and Flagyl started on 07/20 - analgesics and antipyretics p.r.n. - diet: clear liquid diet - serial abdominal exams - IV fluids: NS at 75 mL/hour - Monitor vital signs, I&Os, track stool output, watch for bloody stools, neuro status and patient is a fall risk - Monitor serum electrolytes and CBC - general surgery consulted Continue IV antibiotics with IV fluids Continue to monitor with serial abdominal exams and labs. 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 (6) Hypertension: Qualifiers: Hypertension type: primary hypertension Qualified Code(s): I10 - Essential (primary) hypertension Code(s): I10 - Essential (primary) hypertension Status: Chronic Assessment and Plan: - chronic, continue home medications - Metoprolol 25 mg b.i.d. - monitor (7) Burst fracture of thoracic vertebra: Code(s): S22.001A - Stable burst fracture of unspecified thoracic vertebra, initial encounter for closed fracture Status: Acute Assessment and Plan: Per daughter patient underwent the vertebroplasty on Wednesday, 07/[address] Sanabria. She has no restrictions with ambulation besides requiring the TLSO brace which is in the room. - CT lumbar/thoracic: 1. Subacute burst fracture of T7, stable from 06/27/2024. Burst fractures of T8 and T10 with changes of vertebroplasty. 07/22: Patient complaining of distressing/severe pain related to movement, distal neuro function remains intact She is tearful and states she wished I could just get a shot that would let me go peacefully, I had a great life and now this is not tolerable. Ordered low dose PRN Tramadol and low dose once daily PRN Celebrex for severe pain Tylenol not sufficient for pain but narcotics have caused constipation and mental status changes. Patient is on Eliquis due to afib history and age 88 which makes use of NSAIDs challenging SNF will be needed once patient is ready for discharge after improvement in diverticulitis and pain control for her back. (8) Fall from ground level: Code(s): W18.30XA - Fall on same level, unspecified, initial encounter Status: Acute Assessment and Plan: Per chart review, patients daughter found her down at 7 pm on 07/19, last known well was 6:30 am that morning. - CK WNL - CT head: Normal aging brain - CT cervical: No acute fracture. Reversal of the normal cervical lordosis with grade 1 anterolisthesis of C3 over C4. Degenerative spondylitic changes, as above. - CT lumbar/thoracic: 1. Subacute burst fracture of T7, stable from 06/27/2024. Burst fractures of T8 and T10 with changes of vertebroplasty. 2. Severe thoracic and lumbar spondylosis. 3. Scoliosis. - fall precautions - PT/OT Time Spent With Patient Time with patient: Greater than 35 minutes Subjective Date/time seen: 07/22/24 13:41 Interval history: Patient reports severe low back pain. She still complains of constipation. Left lower quadrant abdomen still in full and mildly tender. Decreased oral intake, patient remains on IV fluids. TLSO brace when out of bed. PT OT wor lissy with patient OT recommends SNF on discharge. Review of Systems Review of Systems: All systems reviewed & are unremarkable except as noted in HPI and below Exam Narrative: General: Elderly pleasant female patient, pain distress noted, emotional distress noted due to pain and loss of function HEENT: Normocephalic. Atraumatic. Extraocular movement intact. Sclera clear and anicteric. . No facial asymmetry. Chest: Lungs are clear to auscultation bilaterally. No wheezes or crackles. CV: Heart was regular rate and rhythm. S1-S2. No murmurs, gallops, or rubs. Abd: Abdomen was soft. Slight tenderness to LLQ. Rotund prominence Ext: No clubbing, cyanosis, or edema. 2+ DP pulses bilaterally. Neuro: Patient is alert and oriented x3. Speech is clear. Objective Data Vital Signs Vital Signs: Vital Signs - 24 hr 07/21/24 14:00 07/21/24 15:01 07/21/24 16:00 Temperature 36.8 C Pulse Rate 85 92 Respiratory Rate 18 Blood Pressure 121/68 Pulse Oximetry 96 Oxygen Delivery Room Air 07/21/24 19:51 07/21/24 20:00 07/21/24 20:00 Temperature Pulse Rate 91 94 Respiratory Rate Blood Pressure Pulse Oximetry Oxygen Delivery Room Air 07/21/24 22:00 07/22/24 00:00 07/22/24 04:00 Temperature 37.1 C Pulse Rate 91 74 80 Respiratory Rate 20 Blood Pressure 148/67 H Pulse Oximetry 100 Oxygen Delivery 07/22/24 06:00 07/22/24 08:00 07/22/24 08:28 Temperature 36.6 C Pulse Rate 78 73 Respiratory Rate 20 Blood Pressure 143/79 H Pulse Oximetry 100 Oxygen Delivery Room Air Intake/Output Intake/Output: Intake & Output 07/19/24 07/20/24 07/21/24 07/22/24 23:59 23:59 23:59 23:59 Intake Total 1032.5 1665 1520 Output Total 1500 900 800 Balance -467.5 765 720 Meds/Results Medications: Active Medications Generic Name Dose Route Start Last Admin Trade Name Freq PRN Reason Stop Dose Admin Acetaminophen 650 mg 07/20/24 10:03 07/22/24 08:27 Acetaminophen 325 Mg Tablet PO 650 mg Q4H PRN Administration Mild Pain (1-3) or Fever Allopurinol 300 mg 07/21/24 09:00 07/22/24 08:27 Allopurinol 300 Mg Tablet PO 300 mg DAILY MICHAEL Administration Apixaban 2.5 mg 07/21/24 09:00 07/22/24 08:27 Apixaban 2.5 Mg Tablet PO 2.5 mg Q12HR MICHAEL Administration Ascorbic Acid 125 mg 07/21/24 09:00 07/22/24 08:28 Ascorbic Acid 125 Mg Tablet PO 125 mg DAILY MICHAEL Administration Celecoxib 100 mg 07/22/24 11:48 Celecoxib 100 Mg Capsule PO DAILY PRN pain not managed with Tylenol/tramadol Cyanocobalamin 1,000 mcg 07/21/24 09:00 07/22/24 08:28 Cyanocobalamin 1,000 Mcg Tablet PO 1,000 mcg DAILY MICHAEL Administration Fish Oil 1 gm 07/21/24 09:00 07/22/24 08:27 [place] 3 Polyunsat Fatty Acids 1 Gm Cap PO 1 gm QAM MICHAEL Administration Sodium Chloride 1,000 mls @ 75 mls/hr 07/20/24 10:05 07/22/24 05:19 Normal Saline Iv IV CONT 75 mls/hr .[id number] MICHAEL Administration Metronidazole 500 mg in 100 mls @ 100 mls/hr 07/20/24 12:00 07/22/24 13:02 Flagyl 500 Mg/Iso Soln 100 Ml IVPB 100 mls/hr Q8HR MICHAEL Administration Levofloxacin 750 mg 07/22/24 09:00 07/22/24 08:27 Levofloxacin 750 Mg Tablet PO 750 mg Q48H MICHAEL Administration Lidocaine 1 patch 07/21/24 00:15 Lidocaine 5% Patch TRANSDERM DAILY PRN back pain Metoprolol Tartrate 25 mg 07/21/24 09:00 07/22/24 08:28 Metoprolol Tartrate 25 Mg Tablet PO 25 mg Q12HR MICHAEL Administration Home Med ( 160 mg 07/21/24 09:00 07/22/24 08:30 Zanubrutinib 80 Mg PO 08/20/24 08:59 160 mg Capsule) Q12HR MICHAEL Administration Ondansetron HCl 4 mg 07/20/24 10:03 07/20/24 17:26 Ondansetron Inj 4 Mg/2 Ml Vial IV PUSH 4 mg Q4H PRN Administration Nausea Tramadol HCl 25 mg 07/22/24 11:47 07/22/24 12:53 Tramadol Hcl (*Crx) 25 Mg Tablet PO 25 mg Q4H PRN Administration Pain Rated 6 or Greater Radiology Results: ITS Impressions Chest X-Ray 07/20/24 07:47 Impression: Mild interstitial prominence, nonspecific. Correlate for mild interstitial edema, COPD, or other chronic interstitial change. Stable cardiomegaly. Head CT 07/20/24 07:55 IMPRESSION: 1. Normal aging brain. Cervical Spine CT 07/20/24 07:57 Impression: No acute fracture. Reversal of the normal cervical lordosis with grade 1 anterolisthesis of C3 over C4. Degenerative spondylitic changes, as above. Thoracic/Lumbar Spine CT 07/20/24 08:00 IMPRESSION: 1. Subacute burst fracture of T7, stable from 06/27/2024. 2. Severe thoracic and lumbar spondylosis. 3. Scoliosis. Abdomen/Pelvis CT 07/20/24 09:56 IMPRESSION: 1. Distal sigmoid diverticulitis with small potentially intramural abscess. 2. Cardiomegaly with biatrial enlargement. Labs Labs: Laboratory Results - last 24 hr 07/20/24 07/20/24 07/20/24 07:24 07:26 07:27 WBC 234.3 H* RBC 3.52 L Hgb 10.0 L Hct 35.4 L MCV 100.6 H MCH 28.4 MCHC 28.2 L RDW 19.7 H Plt Count 229 MPV 10.5 H Immature Gran % (Auto) 0.3 Neut % (Auto) 3.7 L Lymph % (Auto) 95.9 H [place] % (Auto) 0.1 L Eos % (Auto) 0.0 Baso % (Auto) 0.0 L Lymph # (Auto) 224.84 H [place] # (Auto) 0.3 Eos # (Auto) 0.0 Baso # (Auto) 0.0 Abs Immat Gran (auto) 0.62 H Absolute Neuts (auto) 8.6 H Absolute Nucleated RBC 0.000 Nucleated RBC % 0.0 Smudge Cells Moderate Platelet Estimate Adequate Anisocytosis 1+ Ovalocytes 1+ Schistocytes None seen PT 18.1 H INR 1.5 APTT 32.6 Sodium Potassium Chloride Carbon Dioxide Anion Gap BUN Creatinine Estim Creat Clear Calc Estimated GFR Glucose POC Capillary Glucose 135 H Lactic Acid Calcium Magnesium Total Bilirubin AST ALT Alkaline Phosphatase Total Protein Albumin Lipase 71 Influenza A (RT-PCR) Influenza B (RT-PCR) RSV (RT-PCR) SARS-CoV-2 RNA (RT-PCR) 07/20/24 07/20/24 07/21/24 08:08 14:36 07:20 WBC 166.2 H* RBC 3.31 L Hgb 9.1 L Hct 33.0 L MCV 99.7 MCH 27.5 MCHC 27.6 L RDW 19.1 H Plt Count 190 MPV 10.4 Immature Gran % (Auto) 0.1 Neut % (Auto) 3.7 L Lymph % (Auto) 96.0 H [place] % (Auto) 0.2 L Eos % (Auto) 0.0 Baso % (Auto) 0.0 L Lymph # (Auto) 159.49 H [place] # (Auto) 0.3 Eos # (Auto) 0.0 Baso # (Auto) 0.0 Abs Immat Gran (auto) 0.22 H Absolute Neuts (auto) 6.1 Absolute Nucleated RBC 0.000 Nucleated RBC % 0.0 Smudge Cells Platelet Estimate Anisocytosis Ovalocytes Schistocytes PT INR APTT Sodium 136 L Potassium 3.4 Chloride 104 Carbon Dioxide 25 Anion Gap 7 BUN 9 Creatinine 0.63 L Estim Creat Clear Calc Not Reportable Estimated GFR > 60 Glucose 98 POC Capillary Glucose Lactic Acid 1.6 Calcium 9.0 Magnesium 1.6 Total Bilirubin 1.3 AST 20 ALT 7 Alkaline Phosphatase 67 Total Protein 6.0 L Albumin 3.2 L Lipase Influenza A (RT-PCR) Negative Influenza B (RT-PCR) Negative RSV (RT-PCR) Negative SARS-CoV-2 RNA (RT-PCR) Negative Pulse Oximetry SpO2 results: 98 to 100% on room air Attestation: I personally reviewed and interpreted this pulse oximetry as follows: Interpretation: no need for supplemental oxygenation at this Quality VTE Prophylaxis VTE prophylaxis: pharmacologic ordered Hospitalist MIPS Advance Care Plan I have confirmed that the patient's Advanced Care Plan is present, code status is documented, or surrogate decision maker is listed in patient medical record.: Yes Medication Reconciliation I have utilized all available resources to obtain, update and review the patients current medications (includes all prescriptions, OTC, herbals, cannabis, and nutritional supplements).: Yes
[2024-07-23] VITALS (10 sets, daily range): BP systolic 141–177; BP diastolic 68–80; PULSE 78–90; RESP 16–18; TEMP 36.1–36.4; O2SAT 95–100
[2024-07-23] MEDS: SODIUM CHLORIDE 0.9% IV 1,000 ML 75 ML IV CONT (02:27)
[2024-07-23] MEDS: traMADol HCL (*CRX) 25 MG TABLET PO (02:29)
[2024-07-23] MEDS: metroNIDAZOLE 500 MG/ISO 100ML 500 MG/100 ML BAG 100 MG IVPB ×3 (05:10→21:55)
[2024-07-23] MEDS: CELECOXIB 100 MG CAPSULE PO (08:45)
[2024-07-23] MEDS: APIXABAN 2.5 MG TABLET PO ×2 (08:45→20:42)
[2024-07-23] MEDS: ASCORBIC ACID 125 MG TABLET PO (08:45)
[2024-07-23] MEDS: allopurinoL 300 MG TABLET PO (08:45)
[2024-07-23] MEDS: OMEGA 3 POLYUNSAT FATTY ACIDS 1 GM CAP PO (08:45)
[2024-07-23] MEDS: CYANOCOBALAMIN 1,000 MCG TABLET 1000 MCG PO (08:45)
[2024-07-23] MEDS: ZANUBRUTINIB 80 MG 160 EACH PO ×2 (08:46→20:43)
[2024-07-23] MEDS: METOPROLOL TARTRATE 25 MG TABLET PO ×2 (08:47→20:42)
--- NOTE | 2024-07-23 12:36 | P.PNIM_ITS ---
Progress Note: A&P Assessment and Plan (1) Sepsis: Code(s): A41.9 - Sepsis, unspecified organism Status: Acute Assessment and Plan: - meets SIRS criteria: HR, WBC (leukocytosis also 2/2 CLL) - lactic acid 1.6 - 30 mL/kg = 1500, will start with 1L bolus and assess toleration. Has already received 200 mL. - suspected source: Diverticulitis - started on Levaquin and Flagyl - blood cultures drawn on 07/21: pending - See plan below for diverticulitis (2) Diverticulitis of intestine with abscess: Code(s): K57.80 - Diverticulitis of intestine, part unspecified, with perforation and abscess without bleeding Status: Acute Assessment and Plan: - CT abdomen/pelvis: 1. Distal sigmoid diverticulitis with small potentially intramural abscess. 2. Cardiomegaly with biatrial enlargement. - antibiotics: Levaquin and Flagyl started on 07/20 - analgesics and antipyretics p.r.n. - diet: clear liquid diet - serial abdominal exams - IV fluids: NS at 75 mL/hour - Monitor vital signs, I&Os, track stool output, watch for bloody stools, neuro status and patient is a fall risk - Monitor serum electrolytes and CBC - general surgery consulted Continue IV antibiotics with IV fluids Continue to monitor with serial abdominal exams and labs. 07/23: Patient on oral Levaquin due to IV shortage, she wants to increase diet as appetite is improving, surgery managing diet (3) CLL (chronic lymphocytic leukemia): Code(s): C91.10 - Chronic lymphocytic leukemia of B-cell type not having achieved remission Status: Chronic Assessment and Plan: - follows with Paige BURNETTE 07/22: slight downtrend in WBC 07/23: Recheck labs tomorrow (4) Chronic anemia: Code(s): D64.9 - Anemia, unspecified Status: Chronic Assessment and Plan: Hgb 10 on admission, previously 9.3 on 07/14/2024 - H/H 10.4/31.8 on am labs - No signs of active bleeding - continue iron and B12 - Monitor 07/23: Recheck labs tomorrow (5) Acute confusion: Code(s): R41.0 - Disorientation, unspecified Status: Acute Assessment and Plan: Likely secondary to acute infection - CT head: Normal aging brain - neuro checks q.4 Patient AOx3 on assessment. 07/23: Overnight patient was confused after tramadol use, thought she had attended a wedding when nurse was providing care (6) Hypertension: Qualifiers: Hypertension type: primary hypertension Qualified Code(s): I10 - Essential (primary) hypertension Code(s): I10 - Essential (primary) hypertension Status: Chronic Assessment and Plan: - chronic, continue home medications - Metoprolol 25 mg b.i.d. - monitor (7) Burst fracture of thoracic vertebra: Code(s): S22.001A - Stable burst fracture of unspecified thoracic vertebra, initial encounter for closed fracture Status: Acute Assessment and Plan: Per daughter patient underwent the vertebroplasty on Wednesday, 07/[address] Sanabria. She has no restrictions with ambulation besides requiring the TLSO brace which is in the room. - CT lumbar/thoracic: 1. Subacute burst fracture of T7, stable from 06/27/2024. Burst fractures of T8 and T10 with changes of vertebroplasty. 07/22: Patient complaining of distressing/severe pain related to movement, distal neuro function remains intact She is tearful and states she wished I could just get a shot that would let me go peacefully, I had a great life and now this is not tolerable. Ordered low dose PRN Tramadol and low dose once daily PRN Celebrex for severe pain Tylenol not sufficient for pain but narcotics have caused constipation and mental status changes. Patient is on Eliquis due to afib history and age 88 which makes use of NSAIDs challenging SNF will be needed once patient is ready for discharge after improvement in diverticulitis and pain control for her back. 07/23: Pain better this morning but Tylenol was ineffective yesterday and last night tramadol caused confusion Patient took Celebrex this morning with improvement Use Celebrex with caution due to Eliquis Rx and age Will add pantoprazole to decrease likelihood of ulcer Emphasized that patient will need SNF on discharge, patient and daughter express understanding Follow up with interventional pain management scheduled for 07/26 in [place] (8) Fall from ground level: Code(s): W18.30XA - Fall on same level, unspecified, initial encounter Status: Acute Assessment and Plan: Per chart review, patients daughter found her down at 7 pm on 07/19, last known well was 6:30 am that morning. - CK WNL - CT head: Normal aging brain - CT cervical: No acute fracture. Reversal of the normal cervical lordosis with grade 1 anterolisthesis of C3 over C4. Degenerative spondylitic changes, as above. - CT lumbar/thoracic: 1. Subacute burst fracture of T7, stable from 06/27/2024. Burst fractures of T8 and T10 with changes of vertebroplasty. 2. Severe thoracic and lumbar spondylosis. 3. Scoliosis. - fall precautions - PT/OT Time Spent With Patient Time with patient: Greater than 35 minutes Subjective Date/time seen: 07/23/24 12:36 Interval history: Patient reported pain is less severe today. She stated Tylenol did not help and tramadol caused overnight confusion. Celebrex this morning really helped. Heart rate stable, discontinue Telemetry. Drinking fluids well and appetite returning. Patient wanting to increase diet but no BM yet and unsure if she passed gas. LLQ marine water tender. Will turn down IV fluid rate, surgery to manage diet due to diverticulitis with abscess. Discussed that patient will need acute rehab/SNF on discharge due to severe pain and mobility concerns. Patient and family expressed understanding. Review of Systems Review of Systems: All systems reviewed & are unremarkable except as noted in HPI and below Exam Narrative: General: Elderly pleasant female patient, less distressed today, family at bedside HEENT: Normocephalic. Atraumatic. Extraocular movement intact. Sclera clear and anicteric. No facial asymmetry. Chest: Lungs are clear to auscultation bilaterally. No wheezes or crackles. CV: Heart was regular rate and rhythm. S1-S2. No murmurs, gallops, or rubs. Abd: Abdomen was soft. Slight tenderness to LLQ. Rotund prominence. Hypoactive bowel sounds Ext: No clubbing, cyanosis, or edema. 2+ DP pulses bilaterally. Neuro: Patient is alert and oriented x3. Speech is clear. Objective Data Vital Signs Vital Signs: Vital Signs - 24 hr 07/22/24 14:00 07/22/24 16:00 07/22/24 19:56 Temperature 36.8 C Pulse Rate 88 88 88 Respiratory Rate 18 Blood Pressure 127/72 Pulse Oximetry 98 Oxygen Delivery Fraction of Inspired Oxygen 07/22/24 20:00 07/22/24 20:00 07/22/24 21:42 Temperature 36.5 C Pulse Rate 97 78 Respiratory Rate 18 Blood Pressure 148/81 H Pulse Oximetry 98 Oxygen Delivery Room Air Fraction of Inspired Oxygen 07/23/24 00:00 07/23/24 04:00 07/23/24 05:48 Temperature 36.1 C L Pulse Rate 78 82 82 Respiratory Rate 16 Blood Pressure 177/80 H Pulse Oximetry 97 Oxygen Delivery Fraction of Inspired Oxygen 07/23/24 05:58 07/23/24 08:00 07/23/24 08:47 Temperature Pulse Rate 86 Respiratory Rate Blood Pressure 142/68 H Pulse Oximetry Oxygen Delivery Room Air Fraction of Inspired Oxygen 07/23/24 09:16 Temperature Pulse Rate Respiratory Rate Blood Pressure Pulse Oximetry 98 Oxygen Delivery Room Air Fraction of Inspired Oxygen 21 Intake/Output Intake/Output: Intake & Output 07/20/24 07/21/24 07/22/24 07/23/24 23:59 23:59 23:59 23:59 Intake Total 1032.5 1665 1920 1759 Output Total 1500 900 800 Balance -467.5 765 1120 1759 Meds/Results Medications: Active Medications Generic Name Dose Route Start Last Admin Trade Name Freq PRN Reason Stop Dose Admin Acetaminophen 650 mg 07/20/24 10:03 07/22/24 08:27 Acetaminophen 325 Mg Tablet PO 650 mg Q4H PRN Administration Mild Pain (1-3) or Fever Allopurinol 300 mg 07/21/24 09:00 07/23/24 08:45 Allopurinol 300 Mg Tablet PO 300 mg DAILY MICHAEL Administration Apixaban 2.5 mg 07/21/24 09:00 07/23/24 08:45 Apixaban 2.5 Mg Tablet PO 2.5 mg Q12HR MICHAEL Administration Ascorbic Acid 125 mg 07/21/24 09:00 07/23/24 08:45 Ascorbic Acid 125 Mg Tablet PO 125 mg DAILY MICHAEL Administration Celecoxib 100 mg 07/22/24 11:48 07/23/24 08:45 Celecoxib 100 Mg Capsule PO 100 mg DAILY PRN Administration pain not managed with Tylenol/tramadol Cyanocobalamin 1,000 mcg 07/21/24 09:00 07/23/24 08:45 Cyanocobalamin 1,000 Mcg Tablet PO 1,000 mcg DAILY MICHAEL Administration Fish Oil 1 gm 07/21/24 09:00 07/23/24 08:45 [place] 3 Polyunsat Fatty Acids 1 Gm Cap PO 1 gm QAM MICHAEL Administration Sodium Chloride 1,000 mls @ 75 mls/hr 07/20/24 10:05 07/23/24 02:27 Normal Saline Iv IV CONT 75 mls/hr .[id number] MICHAEL Administration Metronidazole 500 mg in 100 mls @ 100 mls/hr 07/20/24 12:00 07/23/24 06:10 Flagyl 500 Mg/Iso Soln 100 Ml IVPB Infused Q8HR MICHAEL Infusion Levofloxacin 750 mg 07/22/24 09:00 07/22/24 08:27 Levofloxacin 750 Mg Tablet PO 750 mg Q48H MICHAEL Administration Lidocaine 1 patch 07/21/24 00:15 Lidocaine 5% Patch TRANSDERM DAILY PRN back pain Metoprolol Tartrate 25 mg 07/21/24 09:00 07/23/24 08:47 Metoprolol Tartrate 25 Mg Tablet PO 25 mg Q12HR MICHAEL Administration Home Med ( 160 mg 07/21/24 09:00 07/23/24 08:46 Zanubrutinib 80 Mg PO 08/20/24 08:59 160 mg Capsule) Q12HR IMCHAEL Administration Ondansetron HCl 4 mg 07/20/24 10:03 07/20/24 17:26 Ondansetron Inj 4 Mg/2 Ml Vial IV PUSH 4 mg Q4H PRN Administration Nausea Tramadol HCl 25 mg 07/22/24 11:47 07/23/24 02:29 Tramadol Hcl (*Crx) 25 Mg Tablet PO 25 mg Q4H PRN Administration Pain Rated 6 or Greater Radiology Results: ITS Impressions Chest X-Ray 07/20/24 07:47 Impression: Mild interstitial prominence, nonspecific. Correlate for mild interstitial edema, COPD, or other chronic interstitial change. Stable cardiomegaly. Head CT 07/20/24 07:55 IMPRESSION: 1. Normal aging brain. Cervical Spine CT 07/20/24 07:57 Impression: No acute fracture. Reversal of the normal cervical lordosis with grade 1 anterolisthesis of C3 over C4. Degenerative spondylitic changes, as above. Thoracic/Lumbar Spine CT 07/20/24 08:00 IMPRESSION: 1. Subacute burst fracture of T7, stable from 06/27/2024. 2. Severe thoracic and lumbar spondylosis. 3. Scoliosis. Abdomen/Pelvis CT 07/20/24 09:56 IMPRESSION: 1. Distal sigmoid diverticulitis with small potentially intramural abscess. 2. Cardiomegaly with biatrial enlargement. Labs Labs: Laboratory Results - last 24 hr 07/20/24 07/20/24 07/20/24 07:24 07:26 07:27 WBC 234.3 H* RBC 3.52 L Hgb 10.0 L Hct 35.4 L MCV 100.6 H MCH 28.4 MCHC 28.2 L RDW 19.7 H Plt Count 229 MPV 10.5 H Immature Gran % (Auto) 0.3 Neut % (Auto) 3.7 L Lymph % (Auto) 95.9 H [place] % (Auto) 0.1 L Eos % (Auto) 0.0 Baso % (Auto) 0.0 L Lymph # (Auto) 224.84 H [place] # (Auto) 0.3 Eos # (Auto) 0.0 Baso # (Auto) 0.0 Abs Immat Gran (auto) 0.62 H Absolute Neuts (auto) 8.6 H Absolute Nucleated RBC 0.000 Nucleated RBC % 0.0 Smudge Cells Moderate Platelet Estimate Adequate Anisocytosis 1+ Ovalocytes 1+ Schistocytes None seen PT 18.1 H INR 1.5 APTT 32.6 Sodium Potassium Chloride Carbon Dioxide Anion Gap BUN Creatinine Estim Creat Clear Calc Estimated GFR Glucose POC Capillary Glucose 135 H Lactic Acid Calcium Magnesium Total Bilirubin AST ALT Alkaline Phosphatase Total Protein Albumin Lipase 71 Influenza A (RT-PCR) Influenza B (RT-PCR) RSV (RT-PCR) SARS-CoV-2 RNA (RT-PCR) 07/20/24 07/20/24 07/21/24 08:08 14:36 07:20 WBC 166.2 H* RBC 3.31 L Hgb 9.1 L Hct 33.0 L MCV 99.7 MCH 27.5 MCHC 27.6 L RDW 19.1 H Plt Count 190 MPV 10.4 Immature Gran % (Auto) 0.1 Neut % (Auto) 3.7 L Lymph % (Auto) 96.0 H [place] % (Auto) 0.2 L Eos % (Auto) 0.0 Baso % (Auto) 0.0 L Lymph # (Auto) 159.49 H [place] # (Auto) 0.3 Eos # (Auto) 0.0 Baso # (Auto) 0.0 Abs Immat Gran (auto) 0.22 H Absolute Neuts (auto) 6.1 Absolute Nucleated RBC 0.000 Nucleated RBC % 0.0 Smudge Cells Platelet Estimate Anisocytosis Ovalocytes Schistocytes PT INR APTT Sodium 136 L Potassium 3.4 Chloride 104 Carbon Dioxide 25 Anion Gap 7 BUN 9 Creatinine 0.63 L Estim Creat Clear Calc Not Reportable Estimated GFR > 60 Glucose 98 POC Capillary Glucose Lactic Acid 1.6 Calcium 9.0 Magnesium 1.6 Total Bilirubin 1.3 AST 20 ALT 7 Alkaline Phosphatase 67 Total Protein 6.0 L Albumin 3.2 L Lipase Influenza A (RT-PCR) Negative Influenza B (RT-PCR) Negative RSV (RT-PCR) Negative SARS-CoV-2 RNA (RT-PCR) Negative Pulse Oximetry SpO2 results: 95-98% on room air Attestation: I personally reviewed and interpreted this pulse oximetry as follows: Interpretation: no need for supplemental oxygenation at this time Quality VTE Prophylaxis VTE prophylaxis: pharmacologic ordered
[2024-07-23] MEDS: SODIUM CHLORIDE 0.9% IV 1,000 ML 50 ML IV CONT (17:24)
[2024-07-23] MEDS: ACETAMINOPHEN 325 MG TABLET 650 MG PO (20:41)
[2024-07-23] MEDS: PANTOPRAZOLE SOD SESQUIHYDRATE 20 MG TAB PO (20:42)
--- NOTE | 2024-07-24 00:02 | PC.NURSE ---
0001- Notified KIERA Foster of HTN 170/98. Pt is restless and confused very frequently. Difficult to obtain BP when pt is at rest since pt is frequently trying to get up r/t confusion. NNO at this time, states she will look at chart.
[2024-07-24] MEDS: ACETAMINOPHEN 325 MG TABLET 650 MG PO (00:53)
[2024-07-24] MEDS: metroNIDAZOLE 500 MG/ISO 100ML 500 MG/100 ML BAG 100 MG IVPB ×3 (05:25→21:13)
[2024-07-24 06:00] VITALS: BP 148/87; PULSE 83; RESP 18; TEMP 36.1; O2SAT 100
[2024-07-24 07:08] LABS: Eosinophils Absolute Auto 0.1 K/mm3 (0-0.3); Eosinophils Percent Auto 0.1 % (0-4.4); Hematocrit 31.4 % (37.0-47.0); Hemoglobin 8.9 g/dL (12.0-15.0); Immature Granulocyte Absolute 0.22 K/mm3 (0.00-0.031); Immature Granulocyte Percent A 0.1 % (0-0.5); Lymphocytes Absolute Auto 152.87 K/mm3 (0.9-3.2); Lymphocytes Percent Auto 95.9 % (18.3-44.2); Mean Corpuscular HGB Conc 28.3 g/dl (32-36); Mean Corpuscular Hemoglobin 28.3 pg (26-34); Mean Corpuscular Volume 99.7 fl (80-100); Mean Platelet Volume 10.8 fl (7.4-10.4); Monocytes Absolute Auto 0.3 K/mm3 (0.1-0.6); Monocytes Percent Auto 0.2 % (2.6-8.5); Neutrophils Absolute Auto 5.9 K/mm3 (1.3-6.7); Neutrophils Percent Auto 3.7 % (45.5-73.1); Platelet Count Result 177 k/mm3 (150-375); Red Blood Count 3.15 M/mm3 (4.2-5.4); Red Cell Distribution Width 19.9 % (11.5-14.5)
[2024-07-24 07:12] LABS: White Blood Count 159.4 K/mm3 (4.5-10.0)
[2024-07-24 07:25] LABS: Alanine Aminotransferase 9 U/L (6-35); Albumin Level 2.7 g/dL (3.5-5.1); Alkaline Phosphatase 56 U/L (38-126); Anion Gap 7 mmol/L (4-12); Aspartate Amino Transferase 18 U/L (14-36); Bilirubin,Total 1.1 mg/dL (0.2-1.3); Blood Urea Nitrogen 9 mg/dL (7-17); Calcium 8.4 mg/dL (8.4-10.2); Carbon Dioxide 21 mmol/L (22-30); Chloride 108 mmol/L (98-107); Estimated Glomerular Filt Rate > 60; Glucose 105 mg/dL (65-110); Magnesium 1.6 mg/dL (1.6-2.3); Potassium 2.9 mmol/L (3.4-5.0); Sodium 136 mmol/L (137-145)
[2024-07-24 07:42] LABS: Anisocytosis 1+; Burr Cells 1+; Ovalocytes 1+; Platelet Estimate Adequate (Adequate); Schistocytes None Seen; Smudge Cells MODERATE
[2024-07-24 08:51] VITALS: PULSE 86
[2024-07-24] MEDS: POTASSIUM CHLORIDE 20 MEQ PACKET (FOR LIQUID) 60 MEQ PO (08:51)
[2024-07-24] MEDS: METOPROLOL TARTRATE 25 MG TABLET PO ×2 (08:51→21:14)
[2024-07-24] MEDS: levoFLOXacin 750 MG TABLET PO (08:51)
[2024-07-24] MEDS: APIXABAN 2.5 MG TABLET PO ×2 (08:51→21:14)
[2024-07-24] MEDS: ASCORBIC ACID 125 MG TABLET PO (08:51)
[2024-07-24] MEDS: OMEGA 3 POLYUNSAT FATTY ACIDS 1 GM CAP PO (08:51)
[2024-07-24] MEDS: CYANOCOBALAMIN 1,000 MCG TABLET 1000 MCG PO (08:51)
[2024-07-24] MEDS: PANTOPRAZOLE SOD SESQUIHYDRATE 20 MG TAB PO ×2 (08:52→21:14)
[2024-07-24] MEDS: allopurinoL 300 MG TABLET PO (08:52)
[2024-07-24] MEDS: ZANUBRUTINIB 80 MG 160 EACH PO ×2 (08:59→21:14)
--- NOTE | 2024-07-24 11:46 | P.PNIM_ITS ---
Progress Note: A&P Assessment and Plan (1) Sepsis: Code(s): A41.9 - Sepsis, unspecified organism Status: Acute Assessment and Plan: - meets SIRS criteria: HR, WBC (leukocytosis also 2/2 CLL) - lactic acid 1.6 - NS 50 mls/hr cont. - suspected source: Diverticulitis - started on Levaquin and Flagyl on 07/20/24 - blood cultures preliminary NGTD - See plan below for diverticulitis - Sepsis resolved. (2) Diverticulitis of intestine with abscess: Code(s): K57.80 - Diverticulitis of intestine, part unspecified, with perforation and abscess without bleeding Status: Acute Assessment and Plan: - CT abdomen/pelvis: 1. Distal sigmoid diverticulitis with small potentially intramural abscess. 2. Cardiomegaly with biatrial enlargement. - antibiotics: Levaquin and Flagyl started on 07/20 - analgesics and antipyretics p.r.n. - IV fluids: NS at 50 mL/hour - Monitor vital signs, I&Os, track stool output, watch for bloody stools, neuro status and patient is a fall risk - Monitor serum electrolytes and CBC - general surgery consulted - diet: clear liquid diet. Advance per surgeries recommendations. (3) CLL (chronic lymphocytic leukemia): Code(s): C91.10 - Chronic lymphocytic leukemia of B-cell type not having achieved remission Status: Chronic Assessment and Plan: - follows with Paige BURNETTE - slight downtrend in WBC - Trend CBC (4) Chronic anemia: Code(s): D64.9 - Anemia, unspecified Status: Chronic Assessment and Plan: - No signs of active bleeding - continue iron and B12 - Monitor daily labs. (5) Acute confusion: Code(s): R41.0 - Disorientation, unspecified Status: Acute Assessment and Plan: - Likely secondary to acute infection - CT head: Normal aging brain - Patient AOx3 on assessment. - Seems to be more confused at night and with controlled substances. (6) Hypertension: Qualifiers: Hypertension type: primary hypertension Qualified Code(s): I10 - Essential (primary) hypertension Code(s): I10 - Essential (primary) hypertension Status: Chronic Assessment and Plan: - chronic, continue home medications - Metoprolol 25 mg b.i.d. - monitor (7) Burst fracture of thoracic vertebra: Code(s): S22.001A - Stable burst fracture of unspecified thoracic vertebra, initial encounter for closed fracture Status: Acute Assessment and Plan: - Per daughter patient underwent the vertebroplasty on Wednesday, 07/[address] Sanabria. She has no restrictions with ambulation besides requiring the TLSO brace which is in the room. - CT lumbar/thoracic: 1. Subacute burst fracture of T7, stable from 06/27/2024. Burst fractures of T8 and T10 with changes of vertebroplasty. - Ordered Tylenol and Celebrex PRN. Tylenol not sufficient for pain but narcotics have caused constipation and mental status changes. - Monitor Celebrex use with Eliquis - Will add pantoprazole to decrease likelihood of ulcer - Patient will need SNF on discharge, patient and daughter express understanding (8) Fall from ground level: Code(s): W18.30XA - Fall on same level, unspecified, initial encounter Status: Acute Assessment and Plan: - CK WNL - CT head: Normal aging brain - CT cervical: No acute fracture. Reversal of the normal cervical lordosis with grade 1 anterolisthesis of C3 over C4. Degenerative spondylitic changes, as above. - CT lumbar/thoracic: 1. Subacute burst fracture of T7, stable from 06/27/2024. Burst fractures of T8 and T10 with changes of vertebroplasty. 2. Severe thoracic and lumbar spondylosis. 3. Scoliosis. - fall precautions - PT/OT - Will need SNF at discharge. Subjective Date/time seen: 07/24/24 11:46 Interval history: Patient is not having any abdominal pain, nausea or vomiting. She is complaining of back pain and discomfort. Continue working with PT and OT. Waiting on further recommendations from General surgery. Blood cultures are still pending. Continue Levaquin and Flagyl. Exam Narrative: GENERAL: Uncomfortable due to back pain HENMT: moist mucous membranes EYES: EOM intact b/l RESPIRATORY: clear to auscultation, no increased respiratory effort CARDIO: Regular rate and rhythm GI: soft, nontender, bowel sounds present SKIN/EXTREMITIES: no rashes, no edema, no redness or tenderness Objective Data Vital Signs Vital Signs: Vital Signs - 24 hr 07/23/24 14:00 07/23/24 20:42 07/23/24 22:00 Temperature 97.6 F 97.6 F Pulse Rate 90 88 86 Respiratory Rate 18 18 Blood Pressure 141/71 H Pulse Oximetry 95 100 Oxygen Delivery 07/24/24 06:00 07/24/24 08:00 07/24/24 08:51 Temperature 97.0 F L Pulse Rate 83 86 Respiratory Rate 18 Blood Pressure 148/87 H Pulse Oximetry 100 Oxygen Delivery Room Air Intake/Output Intake/Output: Intake & Output 07/21/24 07/22/24 07/23/24 07/24/24 23:59 23:59 23:59 23:59 Intake Total 1665 1920 3079 240 Output Total 900 800 Balance 765 1120 3079 240 Meds/Results Medications: Active Medications Generic Name Dose Route Start Last Admin Trade Name Freq PRN Reason Stop Dose Admin Acetaminophen 650 mg 07/20/24 10:03 07/24/24 00:53 Acetaminophen 325 Mg Tablet PO 650 mg Q4H PRN Administration Mild Pain (1-3) or Fever Allopurinol 300 mg 07/21/24 09:00 07/24/24 08:52 Allopurinol 300 Mg Tablet PO 300 mg DAILY MICHAEL Administration Apixaban 2.5 mg 07/21/24 09:00 07/24/24 08:51 Apixaban 2.5 Mg Tablet PO 2.5 mg Q12HR MICHAEL Administration Ascorbic Acid 125 mg 07/21/24 09:00 07/24/24 08:51 Ascorbic Acid 125 Mg Tablet PO 125 mg DAILY MICHAEL Administration Celecoxib 100 mg 07/22/24 11:48 07/23/24 08:45 Celecoxib 100 Mg Capsule PO 100 mg DAILY PRN Administration pain not managed with Tylenol/tramadol Cyanocobalamin 1,000 mcg 07/21/24 09:00 07/24/24 08:51 Cyanocobalamin 1,000 Mcg Tablet PO 1,000 mcg DAILY MICHAEL Administration Fish Oil 1 gm 07/21/24 09:00 07/24/24 08:51 [place] 3 Polyunsat Fatty Acids 1 Gm Cap PO 1 gm QAM MICHAEL Administration Sodium Chloride 1,000 mls @ 50 mls/hr 07/20/24 10:05 07/23/24 17:24 Normal Saline Iv IV CONT 50 mls/hr .Q20H MICHAEL Administration Metronidazole 500 mg in 100 mls @ 100 mls/hr 07/20/24 12:00 01/27/25 05:25 Flagyl 500 Mg/Iso Soln 100 Ml IVPB 100 mls/hr Q8HR MICHAEL Administration Levofloxacin 750 mg 07/22/24 09:00 07/24/24 08:51 Levofloxacin 750 Mg Tablet PO 750 mg Q48H MICHAEL Administration Lidocaine 1 patch 07/21/24 00:15 Lidocaine 5% Patch TRANSDERM DAILY PRN back pain Metoprolol Tartrate 25 mg 07/21/24 09:00 07/24/24 08:51 Metoprolol Tartrate 25 Mg Tablet PO 25 mg Q12HR MICHAEL Administration Home Med ( 160 mg 07/21/24 09:00 07/24/24 08:59 Zanubrutinib 80 Mg PO 08/20/24 08:59 160 mg Capsule) Q12HR MICHAEL Administration Ondansetron HCl 4 mg 07/20/24 10:03 07/20/24 17:26 Ondansetron Inj 4 Mg/2 Ml Vial IV PUSH 4 mg Q4H PRN Administration Nausea Pantoprazole Sodium 20 mg 07/23/24 21:00 07/24/24 08:52 Pantoprazole Sod Sesquihydrate 20 Mg Tab PO 20 mg Q12HR MICHAEL Administration Tramadol HCl 25 mg 07/22/24 11:47 07/23/24 02:29 Tramadol Hcl (*Crx) 25 Mg Tablet PO 25 mg Q4H PRN Administration Pain Rated 6 or Greater Radiology Results: ITS Impressions Chest X-Ray 07/20/24 07:47 Impression: Mild interstitial prominence, nonspecific. Correlate for mild interstitial edema, COPD, or other chronic interstitial change. Stable cardiomegaly. Head CT 07/20/24 07:55 IMPRESSION: 1. Normal aging brain. Cervical Spine CT 07/20/24 07:57 Impression: No acute fracture. Reversal of the normal cervical lordosis with grade 1 anterolisthesis of C3 over C4. Degenerative spondylitic changes, as above. Thoracic/Lumbar Spine CT 07/20/24 08:00 IMPRESSION: 1. Subacute burst fracture of T7, stable from 06/27/2024. 2. Severe thoracic and lumbar spondylosis. 3. Scoliosis. Abdomen/Pelvis CT 07/20/24 09:56 IMPRESSION: 1. Distal sigmoid diverticulitis with small potentially intramural abscess. 2. Cardiomegaly with biatrial enlargement. Labs Labs: Laboratory Results - last 24 hr 07/24/24 06:45 WBC 159.4 H* RBC 3.15 L Hgb 8.9 L Hct 31.4 L MCV 99.7 MCH 28.3 MCHC 28.3 L RDW 19.9 H Plt Count 177 MPV 10.8 H Immature Gran % (Auto) 0.1 Neut % (Auto) 3.7 L Lymph % (Auto) 95.9 H [place] % (Auto) 0.2 L Eos % (Auto) 0.1 Baso % (Auto) 0.0 L Lymph # (Auto) 152.87 H [place] # (Auto) 0.3 Eos # (Auto) 0.1 Baso # (Auto) 0.0 Abs Immat Gran (auto) 0.22 H Absolute Neuts (auto) 5.9 Absolute Nucleated RBC 0.000 Nucleated RBC % 0.0 Smudge Cells Moderate Platelet Estimate Adequate Anisocytosis 1+ Ovalocytes 1+ [place] Cells 1+ Schistocytes None seen Sodium 136 L Potassium 2.9 L Chloride 108 H Carbon Dioxide 21 L Anion Gap 7 BUN 9 Creatinine 0.55 L Estim Creat Clear Calc Not Reportable Estimated GFR > 60 Glucose 105 Calcium 8.4 Magnesium 1.6 Total Bilirubin 1.1 AST 18 ALT 9 Alkaline Phosphatase 56 Total Protein 5.0 L Albumin 2.7 L
--- NOTE | 2024-07-24 12:55 | PCPTNOTE ---
On 07/24/24, the student, JOSH Ward, provided care and completed [facility] documentation on this patient. I have reviewed the student's documentation and agree with the findings.
[2024-07-24 14:00] VITALS: BP 122/84; PULSE 95; RESP 18; TEMP 36.7; O2SAT 100
--- NOTE | 2024-07-24 15:21 | PM.PNGS ---
Progress Note: A&P Assessment and Plan (1) Diverticulitis of intestine with abscess: Code(s): K57.80 - Diverticulitis of intestine, part unspecified, with perforation and abscess without bleeding Status: Acute Assessment and Plan: Clinically improving. No abdominal pain and exam is benign. Advance to low fiber diet. 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 Vu. Subjective Subjective Date/Time Seen: 07/24/24 15:21 Patient reports: no new complaints, feels better and afebrile Interval history: Patient feeling stronger. She reports working with therapy and walking the halls today. She denies any abdominal pain today. She is tolerating clear liquids, although has not had much intake because she does not enjoy the liquid diet. She is eager to try solid foods. She had a bowel movement yesterday. No nausea or vomiting. Exam Const: General: comfortable and no acute distress GI: Inspection: non-distended GI Palp: Yes Soft to palpation, No Tenderness to palpation present (GI), No Guarding due to palpation present (GI) and No Rebound tenderness present Auscultation: normal bowel sounds Objective Data Vital Signs Vital Signs: Vital Signs - 24 hr 07/23/24 20:42 07/23/24 22:00 07/24/24 06:00 Temperature 97.6 F 97.0 F L Pulse Rate 88 86 83 Respiratory Rate 18 18 Blood Pressure 148/87 H Pulse Oximetry 100 100 Oxygen Delivery 07/24/24 08:00 07/24/24 08:51 07/24/24 14:00 Temperature 98.1 F Pulse Rate 86 95 Respiratory Rate 18 Blood Pressure 122/84 Pulse Oximetry 100 Oxygen Delivery Room Air Intake/Output Intake/Output: Intake & Output 07/21/24 07/22/24 07/23/24 07/24/24 23:59 23:59 23:59 23:59 Intake Total 1665 1920 3079 580 Output Total 900 800 Balance 765 1120 3079 580 Meds/Results Medications: Active Medications Generic Name Dose Route Start Last Admin Trade Name Freq PRN Reason Stop Dose Admin Acetaminophen 650 mg 07/20/24 10:03 07/24/24 00:53 Acetaminophen 325 Mg Tablet PO 650 mg Q4H PRN Administration Mild Pain (1-3) or Fever Allopurinol 300 mg 07/21/24 09:00 07/24/24 08:52 Allopurinol 300 Mg Tablet PO 300 mg DAILY MICHAEL Administration Apixaban 2.5 mg 07/21/24 09:00 07/24/24 08:51 Apixaban 2.5 Mg Tablet PO 2.5 mg Q12HR MICHAEL Administration Ascorbic Acid 125 mg 07/21/24 09:00 07/24/24 08:51 Ascorbic Acid 125 Mg Tablet PO 125 mg DAILY MICHAEL Administration Celecoxib 100 mg 07/22/24 11:48 07/23/24 08:45 Celecoxib 100 Mg Capsule PO 100 mg DAILY PRN Administration pain not managed with Tylenol/tramadol Cyanocobalamin 1,000 mcg 07/21/24 09:00 07/24/24 08:51 Cyanocobalamin 1,000 Mcg Tablet PO 1,000 mcg DAILY MICHAEL Administration Fish Oil 1 gm 07/21/24 09:00 07/24/24 08:51 [place] 3 Polyunsat Fatty Acids 1 Gm Cap PO 1 gm QAM MICHAEL Administration Sodium Chloride 1,000 mls @ 50 mls/hr 07/20/24 10:05 07/23/24 17:24 Normal Saline Iv IV CONT 50 mls/hr .Q20H MICHAEL Administration Metronidazole 500 mg in 100 mls @ 100 mls/hr 07/20/24 12:00 07/24/24 14:45 Flagyl 500 Mg/Iso Soln 100 Ml IVPB 100 mls/hr Q8HR MICHAEL Administration Levofloxacin 750 mg 07/22/24 09:00 07/24/24 08:51 Levofloxacin 750 Mg Tablet PO 750 mg Q48H MICHAEL Administration Lidocaine 1 patch 07/21/24 00:15 Lidocaine 5% Patch TRANSDERM DAILY PRN back pain Metoprolol Tartrate 25 mg 07/21/24 09:00 07/24/24 08:51 Metoprolol Tartrate 25 Mg Tablet PO 25 mg Q12HR MICHAEL Administration Home Med ( 160 mg 07/21/24 09:00 07/24/24 08:59 Zanubrutinib 80 Mg PO 08/20/24 08:59 160 mg Capsule) Q12HR MICHAEL Administration Ondansetron HCl 4 mg 07/20/24 10:03 07/20/24 17:26 Ondansetron Inj 4 Mg/2 Ml Vial IV PUSH 4 mg Q4H PRN Administration Nausea Pantoprazole Sodium 20 mg 07/23/24 21:00 07/24/24 08:52 Pantoprazole Sod Sesquihydrate 20 Mg Tab PO 20 mg Q12HR MICHAEL Administration Tramadol HCl 25 mg 07/22/24 11:47 07/23/24 02:29 Tramadol Hcl (*Crx) 25 Mg Tablet PO 25 mg Q4H PRN Administration Pain Rated 6 or Greater Radiology Results: ITS Impressions Chest X-Ray 07/20/24 07:47 Impression: Mild interstitial prominence, nonspecific. Correlate for mild interstitial edema, COPD, or other chronic interstitial change. Stable cardiomegaly. Head CT 07/20/24 07:55 IMPRESSION: 1. Normal aging brain. Cervical Spine CT 07/20/24 07:57 Impression: No acute fracture. Reversal of the normal cervical lordosis with grade 1 anterolisthesis of C3 over C4. Degenerative spondylitic changes, as above. Thoracic/Lumbar Spine CT 07/20/24 08:00 IMPRESSION: 1. Subacute burst fracture of T7, stable from 06/27/2024. 2. Severe thoracic and lumbar spondylosis. 3. Scoliosis. Abdomen/Pelvis CT 07/20/24 09:56 IMPRESSION: 1. Distal sigmoid diverticulitis with small potentially intramural abscess. 2. Cardiomegaly with biatrial enlargement. Labs Labs: Laboratory Results - last 24 hr 07/24/24 06:45 WBC 159.4 H* RBC 3.15 L Hgb 8.9 L Hct 31.4 L MCV 99.7 MCH 28.3 MCHC 28.3 L RDW 19.9 H Plt Count 177 MPV 10.8 H Immature Gran % (Auto) 0.1 Neut % (Auto) 3.7 L Lymph % (Auto) 95.9 [place] % (Auto) 0.2 L Eos % (Auto) 0.1 Baso % (Auto) 0.0 L Lymph # (Auto) 152.87 [place] # (Auto) 0.3 Eos # (Auto) 0.1 Baso # (Auto) 0.0 Abs Immat Gran (auto) 0.22 H Absolute Neuts (auto) 5.9 Absolute Nucleated RBC 0.000 Nucleated RBC % 0.0 Smudge Cells Moderate Platelet Estimate Adequate Anisocytosis 1+ Ovalocytes 1+ [place] Cells 1+ Schistocytes None seen Sodium 136 L Potassium 2.9 L Chloride 108 H Carbon Dioxide 21 L Anion Gap 7 BUN 9 Creatinine 0.55 L Estim Creat Clear Calc Not Reportable Estimated GFR > 60 Glucose 105 Calcium 8.4 Magnesium 1.6 Total Bilirubin 1.1 AST 18 ALT 9 Alkaline Phosphatase 56 Total Protein 5.0 L Albumin 2.7 L
[2024-07-24 21:14] VITALS: PULSE 90
[2024-07-24] MEDS: SODIUM CHLORIDE 0.9% IV 1,000 ML 50 ML IV CONT (21:29)
[2024-07-24 22:00] VITALS: BP 140/84; PULSE 89; RESP 18; TEMP 36.8; O2SAT 100
[2024-07-25] MEDS: traMADol HCL (*CRX) 25 MG TABLET PO ×2 (03:18→23:53)
[2024-07-25] MEDS: metroNIDAZOLE 500 MG/ISO 100ML 500 MG/100 ML BAG 100 MG IVPB ×2 (05:48→13:17)
[2024-07-25 05:59] LABS: Eosinophils Absolute Auto 0.1 K/mm3 (0-0.3); Eosinophils Percent Auto 0.1 % (0-4.4); Hematocrit 31.5 % (37.0-47.0); Immature Granulocyte Absolute 0.36 K/mm3 (0.00-0.031); Immature Granulocyte Percent A 0.2 % (0-0.5); Lymphocytes Absolute Auto 166.37 K/mm3 (0.9-3.2); Lymphocytes Percent Auto 95.6 % (18.3-44.2); Mean Corpuscular HGB Conc 28.6 g/dl (32-36); Mean Corpuscular Hemoglobin 28.2 pg (26-34); Mean Corpuscular Volume 98.7 fl (80-100); Mean Platelet Volume 10.6 fl (7.4-10.4); Monocytes Absolute Auto 0.4 K/mm3 (0.1-0.6); Monocytes Percent Auto 0.2 % (2.6-8.5); Neutrophils Absolute Auto 6.9 K/mm3 (1.3-6.7); Neutrophils Percent Auto 3.9 % (45.5-73.1); Platelet Count Result 185 k/mm3 (150-375); Red Blood Count 3.19 M/mm3 (4.2-5.4); Red Cell Distribution Width 19.9 % (11.5-14.5)
[2024-07-25 06:00] VITALS: BP 176/98; PULSE 88; RESP 18; TEMP 36.4; O2SAT 99
[2024-07-25 06:54] LABS: Alanine Aminotransferase 8 U/L (6-35); Albumin Level 2.8 g/dL (3.5-5.1); Alkaline Phosphatase 59 U/L (38-126); Anion Gap 8 mmol/L (4-12); Aspartate Amino Transferase 21 U/L (14-36); Bilirubin,Total 1.1 mg/dL (0.2-1.3); Blood Urea Nitrogen 8 mg/dL (7-17); Calcium 8.1 mg/dL (8.4-10.2); Carbon Dioxide 22 mmol/L (22-30); Chloride 105 mmol/L (98-107); Estimated Glomerular Filt Rate > 60; Glucose 101 mg/dL (65-110); Magnesium 1.6 mg/dL (1.6-2.3); Potassium 3.1 mmol/L (3.4-5.0); Sodium 135 mmol/L (137-145)
[2024-07-25 07:01] LABS: White Blood Count 174.1 K/mm3 (4.5-10.0)
[2024-07-25 07:02] LABS: Anisocytosis 1+; Platelet Estimate Adequate (Adequate); Smudge Cells MANY
[2024-07-25 07:03] LABS: Burr Cells 1+; Ovalocytes 1+; Schistocytes None Seen
[2024-07-25] MEDS: ZANUBRUTINIB 80 MG 160 EACH PO (08:33)
[2024-07-25] MEDS: CYANOCOBALAMIN 1,000 MCG TABLET 1000 MCG PO (08:35)
[2024-07-25 08:36] VITALS: PULSE 88
[2024-07-25] MEDS: POTASSIUM CHLORIDE 20 MEQ ER TABLET 40 MEQ PO (08:36)
[2024-07-25] MEDS: PANTOPRAZOLE SOD SESQUIHYDRATE 20 MG TAB PO ×2 (08:36→20:36)
[2024-07-25] MEDS: ASCORBIC ACID 125 MG TABLET PO (08:36)
[2024-07-25] MEDS: METOPROLOL TARTRATE 25 MG TABLET PO ×2 (08:36→20:36)
[2024-07-25] MEDS: allopurinoL 300 MG TABLET PO (08:36)
[2024-07-25] MEDS: APIXABAN 2.5 MG TABLET PO ×2 (08:36→20:36)
[2024-07-25] MEDS: OMEGA 3 POLYUNSAT FATTY ACIDS 1 GM CAP PO (08:36)
--- NOTE | 2024-07-25 11:36 | PC.NURSE ---
Spoke with Dr. Gibson's office per pt and her daughter request and DR ordered chemo pill and allopurinol be discontinued until antibiotics complete
--- NOTE | 2024-07-25 12:30 | P.PNIM_ITS ---
Progress Note: A&P Assessment and Plan (1) Sepsis: Code(s): A41.9 - Sepsis, unspecified organism Status: Resolved Assessment and Plan: - meets SIRS criteria: HR, WBC (leukocytosis also 2/2 CLL) - lactic acid 1.6 - NS 50 mls/hr cont. - suspected source: Diverticulitis - started on Levaquin and Flagyl on 07/20/24 - blood cultures preliminary NGTD - See plan below for diverticulitis - Sepsis resolved. (2) Diverticulitis of intestine with abscess: Code(s): K57.80 - Diverticulitis of intestine, part unspecified, with perforation and abscess without bleeding Status: Acute Assessment and Plan: - CT abdomen/pelvis: 1. Distal sigmoid diverticulitis with small potentially intramural abscess. 2. Cardiomegaly with biatrial enlargement. - antibiotics: Levaquin and Flagyl started on 07/20 - analgesics and antipyretics p.r.n. - IV fluids: NS at 50 mL/hour - Monitor vital signs, I&Os, track stool output, watch for bloody stools, neuro status and patient is a fall risk - Monitor serum electrolytes and CBC - general surgery consulted - diet: clear liquid diet. Advance per surgeries recommendations. 07/25/24: * Pt on low fiber diet. Tolerating well. * Continue IVF. * Continue protonix * Continue to track I&O, output. (3) CLL (chronic lymphocytic leukemia): Code(s): C91.10 - Chronic lymphocytic leukemia of B-cell type not having achieved remission Status: Chronic Assessment and Plan: - follows with Paige BURNETTE - slight downtrend in WBC - Trend CBC 07/25/24: * Acute uptrend in WBC's overnight. * Continue to trend. * Consider consulting Dr. Gibson while here. (4) Chronic anemia: Code(s): D64.9 - Anemia, unspecified Status: Chronic Assessment and Plan: - No signs of active bleeding - continue iron and B12 - Monitor daily labs. 07/25/24: * In the setting of CLL * Continue to trend (5) Acute confusion: Code(s): R41.0 - Disorientation, unspecified Status: Acute Assessment and Plan: - Likely secondary to acute infection - CT head: Normal aging brain - Patient AOx3 on assessment. - Seems to be more confused at night and with controlled substances. 07/25/24: * Currently alert and oriented. (6) Hypertension: Qualifiers: Hypertension type: primary hypertension Qualified Code(s): I10 - Essential (primary) hypertension Code(s): I10 - Essential (primary) hypertension Status: Chronic Assessment and Plan: - chronic, continue home medications - Metoprolol 25 mg b.i.d. - monitor 07/25/24: * Stable BPs. * Continue current regimen. (7) Burst fracture of thoracic vertebra: Code(s): S22.001A - Stable burst fracture of unspecified thoracic vertebra, initial encounter for closed fracture Status: Acute Assessment and Plan: - Per daughter patient underwent the vertebroplasty on Wednesday, 07/[address] Sanabria. She has no restrictions with ambulation besides requiring the TLSO brace which is in the room. - CT lumbar/thoracic: 1. Subacute burst fracture of T7, stable from 06/27/2024. Burst fractures of T8 and T10 with changes of vertebroplasty. - Ordered Tylenol and Celebrex PRN. Tylenol not sufficient for pain but narcotics have caused constipation and mental status changes. - Monitor Celebrex use with Eliquis - Will add pantoprazole to decrease likelihood of ulcer - Patient will need SNF on discharge, patient and daughter express understanding 07/25/24: * Awaiting clearance from surgery and placement. * Encouraged to continue walking and working with PT/OT. (8) Fall from ground level: Code(s): W18.30XA - Fall on same level, unspecified, initial encounter Status: Acute Assessment and Plan: - CK WNL - CT head: Normal aging brain - CT cervical: No acute fracture. Reversal of the normal cervical lordosis with grade 1 anterolisthesis of C3 over C4. Degenerative spondylitic changes, as above. - CT lumbar/thoracic: 1. Subacute burst fracture of T7, stable from 06/27/2024. Burst fractures of T8 and T10 with changes of vertebroplasty. 2. Severe thoracic and lumbar spondylosis. 3. Scoliosis. - fall precautions - PT/OT - Will need SNF at discharge. Time Spent With Patient Time with patient: 15 - 25 minutes Subjective Date/time seen: 07/25/24 1000 Interval history: Pt was examined this morning bedside and she is resting quietly and reports that she feels very tired and weak today. She has been afebrile but it is noted that her already elevated WBC's due to her CLL have abruptly climbed even from yesterday from 159.4-->174.1. The significance of this is unknown as her Leukoc ytosis is not the best or most reliable source of infection indication because of her CLL. She remains on abx of Levaquin and Flagyl. Review of Systems Review of Systems: All systems reviewed & are unremarkable except as noted in HPI and below Exam Narrative: GENERAL: Uncomfortable due to back pain HENMT: moist mucous membranes EYES: EOM intact b/l RESPIRATORY: clear to auscultation, no increased respiratory effort CARDIO: Regular rate and rhythm GI: soft, TTP in the LLQ, bowel sounds present x4. SKIN/EXTREMITIES: no rashes, no edema, no redness or tenderness Objective Data Vital Signs Vital Signs: Vital Signs - 24 hr 07/24/24 14:00 07/24/24 21:14 07/24/24 22:00 Temperature 98.1 F 98.2 F Pulse Rate 95 90 89 Respiratory Rate 18 18 Blood Pressure 122/84 140/84 Pulse Oximetry 100 100 07/25/24 06:00 07/25/24 08:36 Temperature 97.6 F Pulse Rate 88 88 Respiratory Rate 18 Blood Pressure 176/98 H Pulse Oximetry 99 Intake/Output Intake/Output: Intake & Output 07/22/24 07/23/24 07/24/24 07/25/24 23:59 23:59 23:59 23:59 Intake Total 1920 3079 3020 1365 Output Total 800 Balance 1120 3079 3020 1365 Meds/Results Medications: Active Medications Generic Name Dose Route Start Last Admin Trade Name Freq PRN Reason Stop Dose Admin Acetaminophen 650 mg 07/20/24 10:03 07/24/24 00:53 Acetaminophen 325 Mg Tablet PO 650 mg Q4H PRN Administration Mild Pain (1-3) or Fever Apixaban 2.5 mg 07/21/24 09:00 07/25/24 08:36 Apixaban 2.5 Mg Tablet PO 2.5 mg Q12HR MICHAEL Administration Ascorbic Acid 125 mg 07/21/24 09:00 07/25/24 08:36 Ascorbic Acid 125 Mg Tablet PO 125 mg DAILY MICHAEL Administration Celecoxib 100 mg 07/22/24 11:48 07/23/24 08:45 Celecoxib 100 Mg Capsule PO 100 mg DAILY PRN Administration pain not managed with Tylenol/tramadol Cyanocobalamin 1,000 mcg 07/21/24 09:00 07/25/24 08:35 Cyanocobalamin 1,000 Mcg Tablet PO 1,000 mcg DAILY MICHAEL Administration Fish Oil 1 gm 07/21/24 09:00 07/25/24 08:36 [place] 3 Polyunsat Fatty Acids 1 Gm Cap PO 1 gm QAM MICHAEL Administration Sodium Chloride 1,000 mls @ 50 mls/hr 07/20/24 10:05 07/24/24 21:29 Normal Saline Iv IV CONT 50 mls/hr .Q20H MICHAEL Administration Metronidazole 500 mg in 100 mls @ 100 mls/hr 07/20/24 12:00 07/25/24 07:00 Flagyl 500 Mg/Iso Soln 100 Ml IVPB Infused Q8HR MICHAEL Infusion Levofloxacin 750 mg 07/22/24 09:00 07/24/24 08:51 Levofloxacin 750 Mg Tablet PO 750 mg Q48H MICHAEL Administration Lidocaine 1 patch 07/21/24 00:15 Lidocaine 5% Patch TRANSDERM DAILY PRN back pain Metoprolol Tartrate 25 mg 07/21/24 09:00 07/25/24 08:36 Metoprolol Tartrate 25 Mg Tablet PO 25 mg Q12HR MICHAEL Administration Ondansetron HCl 4 mg 07/20/24 10:03 07/20/24 17:26 Ondansetron Inj 4 Mg/2 Ml Vial IV PUSH 4 mg Q4H PRN Administration Nausea Pantoprazole Sodium 20 mg 07/23/24 21:00 07/25/24 08:36 Pantoprazole Sod Sesquihydrate 20 Mg Tab PO 20 mg Q12HR MICHAEL Administration Tramadol HCl 25 mg 07/22/24 11:47 07/25/24 03:18 Tramadol Hcl (*Crx) 25 Mg Tablet PO 25 mg Q4H PRN Administration Pain Rated 6 or Greater Radiology Results: ITS Impressions Chest X-Ray 07/20/24 07:47 Impression: Mild interstitial prominence, nonspecific. Correlate for mild interstitial edema, COPD, or other chronic interstitial change. Stable cardiomegaly. Head CT 07/20/24 07:55 IMPRESSION: 1. Normal aging brain. Cervical Spine CT 07/20/24 07:57 Impression: No acute fracture. Reversal of the normal cervical lordosis with grade 1 anterolisthesis of C3 over C4. Degenerative spondylitic changes, as above. Thoracic/Lumbar Spine CT 07/20/24 08:00 IMPRESSION: 1. Subacute burst fracture of T7, stable from 06/27/2024. 2. Severe thoracic and lumbar spondylosis. 3. Scoliosis. Abdomen/Pelvis CT 07/20/24 09:56 IMPRESSION: 1. Distal sigmoid diverticulitis with small potentially intramural abscess. 2. Cardiomegaly with biatrial enlargement. Labs Labs: Laboratory Results - last 24 hr 07/25/24 05:46 WBC 174.1 H* RBC 3.19 L Hgb 9.0 L Hct 31.5 L MCV 98.7 MCH 28.2 MCHC 28.6 L RDW 19.9 H Plt Count 185 MPV 10.6 H Immature Gran % (Auto) 0.2 Neut % (Auto) 3.9 L Lymph % (Auto) 95.6 H [place] % (Auto) 0.2 L Eos % (Auto) 0.1 Baso % (Auto) 0.0 L Lymph # (Auto) 166.37 H [place] # (Auto) 0.4 Eos # (Auto) 0.1 Baso # (Auto) 0.0 Abs Immat Gran (auto) 0.36 H Absolute Neuts (auto) 6.9 H Absolute Nucleated RBC 0.000 Nucleated RBC % 0.0 Smudge Cells Many Platelet Estimate Adequate Anisocytosis 1+ Ovalocytes 1+ [place] Cells 1+ Schistocytes None seen Sodium 135 L Potassium 3.1 L Chloride 105 Carbon Dioxide 22 Anion Gap 8 BUN 8 Creatinine 0.60 L Estim Creat Clear Calc Not Reportable Estimated GFR > 60 Glucose 101 Calcium 8.1 L Magnesium 1.6 Total Bilirubin 1.1 AST 21 ALT 8 Alkaline Phosphatase 59 Total Protein 6.0 L Albumin 2.8 L Quality VTE Prophylaxis VTE prophylaxis: pharmacologic ordered
[2024-07-25] MEDS: ONDANSETRON INJ 4 MG/2 ML VIAL IV PUSH (13:18)
[2024-07-25 14:00] VITALS: BP 117/63; PULSE 81; RESP 18; TEMP 36.6; O2SAT 98
--- NOTE | 2024-07-25 15:05 | PM.PNGS ---
Progress Note: A&P Assessment and Plan (1) Diverticulitis of intestine with abscess: Code(s): K57.80 - Diverticulitis of intestine, part unspecified, with perforation and abscess without bleeding Status: Acute Assessment and Plan: Having LLQ pain today. She was advanced to a low fiber diet, but hasn't eaten much and has a poor appetite. She has ordered essentially a full liquid diet for dinner although low fiber diet is continued Continue antibiotics, which were switched from oral to IV. Repeat labs tomorrow Could consider repeating CT scan if symptoms persist or worsen (2) CLL (chronic lymphocytic leukemia): Code(s): C91.10 - Chronic lymphocytic leukemia of B-cell type not having achieved remission Status: Chronic Assessment and Plan: [place] stopped today (3) Atrial fibrillation: Qualifiers: Atrial fibrillation type: unspecified Qualified Code(s): I48.91 - Unspecified atrial fibrillation Code(s): I48.91 - Unspecified atrial fibrillation Status: Acute (4) Mild aortic stenosis: Code(s): I35.0 - Nonrheumatic aortic (valve) stenosis Status: Acute (5) Anticoagulant long-term use: Code(s): 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 Vu. Subjective Subjective Date/Time Seen: 07/25/24 15:05 Patient reports: still having pain, tolerating liquids well, flatus, bowel movement and afebrile Interval history: Patient reports not feeling well today. She has had LLQ abdominal pain intermittently. She has not eaten much. She only had a few bites of breakfast and a few bites of ice cream for lunch. This did not aggravate her pain. No nausea or vomiting. Her pain seems to be aggravated by any movement in bed or getting up to the chair. She has been taking the tramadol and tylenol for her back pain, but has not required any analgesics today due to this pain. She was also still taking her home medication, zanubrutinib, for her CLL, which was stopped today. Exam Const: General: comfortable and no acute distress GI: Inspection: non-distended GI Palp: Yes Soft to palpation, No Tenderness to palpation present (GI), No Guarding due to palpation present (GI) and No Rebound tenderness present Auscultation: normal bowel sounds Objective Data Vital Signs Vital Signs: Vital Signs - 24 hr 07/24/24 21:14 07/24/24 22:00 07/25/24 06:00 Temperature 98.2 F 97.6 F Pulse Rate 90 89 88 Respiratory Rate 18 18 Blood Pressure 140/84 176/98 H Pulse Oximetry 100 99 Oxygen Delivery 07/25/24 08:30 07/25/24 08:36 Temperature Pulse Rate 88 Respiratory Rate Blood Pressure Pulse Oximetry Oxygen Delivery Room Air Intake/Output Intake/Output: Intake & Output 07/22/24 07/23/24 07/24/24 07/25/24 23:59 23:59 23:59 23:59 Intake Total 1920 3079 3020 1605 Output Total 800 Balance 1120 3079 3020 1605 Meds/Results Medications: Active Medications Generic Name Dose Route Start Last Admin Trade Name Freq PRN Reason Stop Dose Admin Acetaminophen 650 mg 07/20/24 10:03 07/24/24 00:53 Acetaminophen 325 Mg Tablet PO 650 mg Q4H PRN Administration Mild Pain (1-3) or Fever Apixaban 2.5 mg 07/21/24 09:00 07/25/24 08:36 Apixaban 2.5 Mg Tablet PO 2.5 mg Q12HR MICHAEL Administration Ascorbic Acid 125 mg 07/21/24 09:00 07/25/24 08:36 Ascorbic Acid 125 Mg Tablet PO 125 mg DAILY MICHAEL Administration Celecoxib 100 mg 07/22/24 11:48 07/23/24 08:45 Celecoxib 100 Mg Capsule PO 100 mg DAILY PRN Administration pain not managed with Tylenol/tramadol Cyanocobalamin 1,000 mcg 07/21/24 09:00 07/25/24 08:35 Cyanocobalamin 1,000 Mcg Tablet PO 1,000 mcg DAILY MICHAEL Administration Fish Oil 1 gm 07/21/24 09:00 07/25/24 08:36 [place] 3 Polyunsat Fatty Acids 1 Gm Cap PO 1 gm QAM MICHAEL Administration Sodium Chloride 1,000 mls @ 50 mls/hr 07/20/24 10:05 07/24/24 21:29 Normal Saline Iv IV CONT 50 mls/hr .Q20H MICHAEL Administration Metronidazole 500 mg in 100 mls @ 100 mls/hr 07/20/24 12:00 07/25/24 13:17 Flagyl 500 Mg/Iso Soln 100 Ml IVPB 100 mls/hr Q8HR MICHAEL Administration Levofloxacin 750 mg 07/22/24 09:00 07/24/24 08:51 Levofloxacin 750 Mg Tablet PO 750 mg Q48H MICHAEL Administration Lidocaine 1 patch 07/21/24 00:15 Lidocaine 5% Patch TRANSDERM DAILY PRN back pain Metoprolol Tartrate 25 mg 07/21/24 09:00 07/25/24 08:36 Metoprolol Tartrate 25 Mg Tablet PO 25 mg Q12HR MICHAEL Administration Ondansetron HCl 4 mg 07/20/24 10:03 07/25/24 13:18 Ondansetron Inj 4 Mg/2 Ml Vial IV PUSH 4 mg Q4H PRN Administration Nausea Pantoprazole Sodium 20 mg 07/23/24 21:00 07/25/24 08:36 Pantoprazole Sod Sesquihydrate 20 Mg Tab PO 20 mg Q12HR MICHAEL Administration Tramadol HCl 25 mg 07/22/24 11:47 07/25/24 03:18 Tramadol Hcl (*Crx) 25 Mg Tablet PO 25 mg Q4H PRN Administration Pain Rated 6 or Greater Radiology Results: ITS Impressions Chest X-Ray 07/20/24 07:47 Impression: Mild interstitial prominence, nonspecific. Correlate for mild interstitial edema, COPD, or other chronic interstitial change. Stable cardiomegaly. Head CT 07/20/24 07:55 IMPRESSION: 1. Normal aging brain. Cervical Spine CT 07/20/24 07:57 Impression: No acute fracture. Reversal of the normal cervical lordosis with grade 1 anterolisthesis of C3 over C4. Degenerative spondylitic changes, as above. Thoracic/Lumbar Spine CT 07/20/24 08:00 IMPRESSION: 1. Subacute burst fracture of T7, stable from 06/27/2024. 2. Severe thoracic and lumbar spondylosis. 3. Scoliosis. Abdomen/Pelvis CT 07/20/24 09:56 IMPRESSION: 1. Distal sigmoid diverticulitis with small potentially intramural abscess. 2. Cardiomegaly with biatrial enlargement. Labs Labs: Laboratory Results - last 24 hr 07/25/24 05:46 WBC 174.1 H* RBC 3.19 L Hgb 9.0 L Hct 31.5 L MCV 98.7 MCH 28.2 MCHC 28.6 L RDW 19.9 H Plt Count 185 MPV 10.6 H Immature Gran % (Auto) 0.2 Neut % (Auto) 3.9 L Lymph % (Auto) 95.6 H [place] % (Auto) 0.2 L Eos % (Auto) 0.1 Baso % (Auto) 0.0 L Lymph # (Auto) 166.37 H [place] # (Auto) 0.4 Eos # (Auto) 0.1 Baso # (Auto) 0.0 Abs Immat Gran (auto) 0.36 H Absolute Neuts (auto) 6.9 H Absolute Nucleated RBC 0.000 Nucleated RBC % 0.0 Smudge Cells Many Platelet Estimate Adequate Anisocytosis 1+ Ovalocytes 1+ [place] Cells 1+ Schistocytes None seen Sodium 135 L Potassium 3.1 L Chloride 105 Carbon Dioxide 22 Anion Gap 8 BUN 8 Creatinine 0.60 L Estim Creat Clear Calc Not Reportable Estimated GFR > 60 Glucose 101 Calcium 8.1 L Magnesium 1.6 Total Bilirubin 1.1 AST 21 ALT 8 Alkaline Phosphatase 59 Total Protein 6.0 L Albumin 2.8 L
[2024-07-25] MEDS: CEFEPIME 1 GM/NS 50 ML 1 GM/50 ML BAG IVPB (17:05)
[2024-07-25 20:36] VITALS: PULSE 81
[2024-07-25] MEDS: metroNIDAZOLE 500 MG TABLET PO (21:49)
[2024-07-25 22:00] VITALS: BP 131/75; PULSE 60; RESP 18; TEMP 36.5; O2SAT 100
[2024-07-26] MEDS: SODIUM CHLORIDE 0.9% IV 1,000 ML 50 ML IV CONT (00:15)
[2024-07-26] MEDS: ACETAMINOPHEN 325 MG TABLET 650 MG PO ×2 (01:28→12:49)
[2024-07-26] MEDS: CEFEPIME 1 GM/NS 50 ML 1 GM/50 ML BAG IVPB ×2 (03:50→17:05)
[2024-07-26] MEDS: metroNIDAZOLE 500 MG TABLET PO ×3 (05:14→21:20)
[2024-07-26] MEDS: traMADol HCL (*CRX) 25 MG TABLET PO (05:44)
[2024-07-26 06:00] VITALS: BP 140/81; PULSE 64; RESP 18; TEMP 36.8; O2SAT 100
[2024-07-26 06:52] LABS: Eosinophils Absolute Auto 0.2 K/mm3 (0-0.3); Eosinophils Percent Auto 0.1 % (0-4.4); Hematocrit 31.9 % (37.0-47.0); Hemoglobin 8.9 g/dL (12.0-15.0); Immature Granulocyte Absolute 0.26 K/mm3 (0.00-0.031); Immature Granulocyte Percent A 0.1 % (0-0.5); Lymphocytes Absolute Auto 176.68 K/mm3 (0.9-3.2); Mean Corpuscular HGB Conc 27.9 g/dl (32-36); Mean Corpuscular Hemoglobin 28.3 pg (26-34); Mean Corpuscular Volume 101.3 fl (80-100); Monocytes Absolute Auto 0.3 K/mm3 (0.1-0.6); Monocytes Percent Auto 0.2 % (2.6-8.5); Neutrophils Absolute Auto 4.8 K/mm3 (1.3-6.7); Neutrophils Percent Auto 2.6 % (45.5-73.1); Platelet Count Result 214 k/mm3 (150-375); Red Blood Count 3.15 M/mm3 (4.2-5.4); Red Cell Distribution Width 20.4 % (11.5-14.5)
[2024-07-26 07:03] LABS: White Blood Count 182.2 K/mm3 (4.5-10.0)
[2024-07-26 07:14] LABS: Alanine Aminotransferase 10 U/L (6-35); Albumin Level 2.8 g/dL (3.5-5.1); Alkaline Phosphatase 61 U/L (38-126); Anion Gap 7 mmol/L (4-12); Aspartate Amino Transferase 18 U/L (14-36); Bilirubin,Total 0.8 mg/dL (0.2-1.3); Blood Urea Nitrogen 8 mg/dL (7-17); Calcium 8.4 mg/dL (8.4-10.2); Carbon Dioxide 21 mmol/L (22-30); Chloride 108 mmol/L (98-107); Estimated Glomerular Filt Rate > 60; Glucose 111 mg/dL (65-110); Magnesium 1.6 mg/dL (1.6-2.3); Potassium 3.3 mmol/L (3.4-5.0); Sodium 136 mmol/L (137-145)
[2024-07-26 07:32] LABS: Anisocytosis 1+; Burr Cells 1+; Ovalocytes 1+; Platelet Estimate Adequate (Adequate); Schistocytes None Seen; Smudge Cells MANY
[2024-07-26] MEDS: PANTOPRAZOLE SOD SESQUIHYDRATE 20 MG TAB PO ×2 (09:13→20:45)
[2024-07-26] MEDS: APIXABAN 2.5 MG TABLET PO ×2 (09:13→20:45)
[2024-07-26] MEDS: CYANOCOBALAMIN 1,000 MCG TABLET 1000 MCG PO (09:13)
[2024-07-26] MEDS: ASCORBIC ACID 125 MG TABLET PO (09:13)
[2024-07-26] MEDS: OMEGA 3 POLYUNSAT FATTY ACIDS 1 GM CAP PO (09:13)
[2024-07-26 09:14] VITALS: PULSE 89
[2024-07-26] MEDS: POTASSIUM CHLORIDE 20 MEQ ER TABLET 40 MEQ PO (09:14)
[2024-07-26] MEDS: METOPROLOL TARTRATE 25 MG TABLET PO ×2 (09:14→20:45)
[2024-07-26 10:17] VITALS: BMI 23.8
--- NOTE | 2024-07-26 11:58 | P.PNIM_ITS ---
Progress Note: A&P Assessment and Plan (1) Sepsis: Code(s): A41.9 - Sepsis, unspecified organism Status: Resolved Assessment and Plan: - meets SIRS criteria: HR, WBC (leukocytosis also 2/2 CLL) - lactic acid 1.6 - NS 50 mls/hr cont. - suspected source: Diverticulitis - started on Levaquin and Flagyl on 07/20/24 - blood cultures preliminary NGTD - See plan below for diverticulitis - Sepsis resolved. (2) Diverticulitis of intestine with abscess: Code(s): K57.80 - Diverticulitis of intestine, part unspecified, with perforation and abscess without bleeding Status: Acute Assessment and Plan: - CT abdomen/pelvis: 1. Distal sigmoid diverticulitis with small potentially intramural abscess. 2. Cardiomegaly with biatrial enlargement. - antibiotics: Levaquin and Flagyl started on 07/20 - analgesics and antipyretics p.r.n. - IV fluids: NS at 50 mL/hour - Monitor vital signs, I&Os, track stool output, watch for bloody stools, neuro status and patient is a fall risk - Monitor serum electrolytes and CBC - general surgery consulted - diet: clear liquid diet. Advance per surgeries recommendations. 07/25/24: * Pt on low fiber diet. Tolerating well. * Continue IVF. * Continue protonix * Continue to track I&O, output. 07/26/24: * Pt on low fiber diet. Tolerating okay, fair appetite. * Continue IVF. * Continue Protonix * Continue to track I&O, output. (3) CLL (chronic lymphocytic leukemia): Code(s): C91.10 - Chronic lymphocytic leukemia of B-cell type not having achieved remission Status: Chronic Assessment and Plan: - follows with Paige BURNETTE - slight downtrend in WBC - Trend CBC 07/25/24: * Acute uptrend in WBC's overnight. * Continue to trend. * Consider consulting Dr. Gibson while here. 07/26/24: * WBC uptrend to 182.2. Patients chemo Zanubrutinib and Allopurinol discontinued on 07/25/24. * Receiving Cefepime 1 gram IVPB q12 and Metronidazole 500 mg PO 8 hr. * Continue to trend. * Consider consulting Dr. Gibson while here. (4) Chronic anemia: Code(s): D64.9 - Anemia, unspecified Status: Chronic Assessment and Plan: - No signs of active bleeding - continue iron and B12 - Monitor daily labs. 07/25/24: * In the setting of CLL * Continue to trend 07/26/24: * In the setting of CLL * Continue to trend (5) Acute confusion: Code(s): R41.0 - Disorientation, unspecified Status: Acute Assessment and Plan: - Likely secondary to acute infection - CT head: Normal aging brain - Patient AOx3 on assessment. - Seems to be more confused at night and with controlled substances. 07/25/24: * Currently alert and oriented. 07/26/24: * Currently A&Ox3. (6) Hypertension: Qualifiers: Hypertension type: primary hypertension Qualified Code(s): I10 - Essential (primary) hypertension Code(s): I10 - Essential (primary) hypertension Status: Chronic Assessment and Plan: - chronic, continue home medications - Metoprolol 25 mg b.i.d. - monitor 07/25/24: * Stable BPs. * Continue current regimen. 07/26/24: * BP today 124/78 * Continue current regimen. (7) Burst fracture of thoracic vertebra: Code(s): S22.001A - Stable burst fracture of unspecified thoracic vertebra, initial en counter for closed fracture Status: Acute Assessment and Plan: - Per daughter patient underwent the vertebroplasty on Wednesday, 07/[address] Sanabria. She has no restrictions with ambulation besides requiring the TLSO brace which is in the room. - CT lumbar/thoracic: 1. Subacute burst fracture of T7, stable from 06/27/2024. Burst fractures of T8 and T10 with changes of vertebroplasty. - Ordered Tylenol and Celebrex PRN. Tylenol not sufficient for pain but narcotics have caused constipation and mental status changes. - Monitor Celebrex use with Eliquis - Will add pantoprazole to decrease likelihood of ulcer - Patient will need SNF on discharge, patient and daughter express understanding 07/25/24: * Awaiting clearance from surgery and placement. * Encouraged to continue walking and working with PT/OT. (8) Fall from ground level: Code(s): W18.30XA - Fall on same level, unspecified, initial encounter Status: Acute Assessment and Plan: - CK WNL - CT head: Normal aging brain - CT cervical: No acute fracture. Reversal of the normal cervical lordosis with grade 1 anterolisthesis of C3 over C4. Degenerative spondylitic changes, as above. - CT lumbar/thoracic: 1. Subacute burst fracture of T7, stable from 06/27/2024. Burst fractures of T8 and T10 with changes of vertebroplasty. 2. Severe thoracic and lumbar spondylosis. 3. Scoliosis. - fall precautions - PT/OT - Will need SNF at discharge. (9) Hypokalemia: Code(s): E87.6 - Hypokalemia Status: Acute Assessment and Plan: * Potassium 3.3. * Potassium Chloride 40 meq PO x1. * Monitor labs. Subjective Date/time seen: 07/26/24 11:58 Interval history: Patient lying in bed with daughter at bedside. Patient denies chest pain, palpitations, headache, dizziness, nausea, or vomiting. Appetite is fair. Patient reports walking well with physical therapy today. Denies pain at present time. Review of Systems Review of Systems: All systems reviewed & are unremarkable except as noted in HPI and below Exam Const: General: comfortable and no acute distress Eyes: Sclera: sclerae normal Resp: Effort & Inspection: normal respiratory effort Auscultation: clear to auscultation bilaterally Cardio: Rate: regular rate Rhythm: regular rhythm GI: GI Palp: Yes Soft to palpation Auscultation: normal bowel sounds Skin: General skin exam: no rashes or lesions noted Neuro: Speech: normal speech Extrem: General: no pedal edema Psych: Mental Status: mental status grossly normal Affect: normal affect Objective Data Vital Signs Vital Signs: Vital Signs - 24 hr 07/25/24 14:00 07/25/24 20:00 07/25/24 20:36 Temperature 97.9 F Pulse Rate 81 81 Respiratory Rate 18 Blood Pressure 117/63 Pulse Oximetry 98 Oxygen Delivery Room Air 07/25/24 22:00 07/26/24 06:00 07/26/24 08:00 Temperature 97.7 F 98.2 F Pulse Rate 60 64 Respiratory Rate 18 18 Blood Pressure 131/75 140/81 Pulse Oximetry 100 100 Oxygen Delivery Room Air 07/26/24 09:14 Temperature Pulse Rate 89 Respiratory Rate Blood Pressure Pulse Oximetry Oxygen Delivery Intake/Output Intake/Output: Intake & Output 07/23/24 07/24/24 07/25/24 07/26/24 23:59 23:59 23:59 23:59 Intake Total 3079 3020 2875 1390 Balance 3079 3020 2875 1390 Meds/Results Medications: Active Medications Generic Name Dose Route Start Last Admin Trade Name Freq PRN Reason Stop Dose Admin Acetaminophen 650 mg 07/20/24 10:03 07/26/24 01:28 Acetaminophen 325 Mg Tablet PO 650 mg Q4H PRN Administration Mild Pain (1-3) or Fever Apixaban 2.5 mg 07/21/24 09:00 07/26/24 09:13 Apixaban 2.5 Mg Tablet PO 2.5 mg Q12HR MICHAEL Administration Ascorbic Acid 125 mg 07/21/24 09:00 07/26/24 09:13 Ascorbic Acid 125 Mg Tablet PO 125 mg DAILY MICHAEL Administration Celecoxib 100 mg 07/22/24 11:48 07/23/24 08:45 Celecoxib 100 Mg Capsule PO 100 mg DAILY PRN Administration pain not managed with Tylenol/tramadol Cyanocobalamin 1,000 mcg 07/21/24 09:00 07/26/24 09:13 Cyanocobalamin 1,000 Mcg Tablet PO 1,000 mcg DAILY MICHAEL Administration Fish Oil 1 gm 07/21/24 09:00 07/26/24 09:13 [place] 3 Polyunsat Fatty Acids 1 Gm Cap PO 1 gm QAM MICHAEL Administration Sodium Chloride 1,000 mls @ 50 mls/hr 07/20/24 10:05 07/26/24 09:15 Normal Saline Iv IV CONT Not Given .Q20H MICHAEL Cefepime HCl 1 gm in 50 mls @ 100 mls/hr 07/25/24 16:30 07/26/24 04:20 Maxipime 1 Gm/Ns 50 Ml IVPB Infused Q12H MICHAEL Infusion Lidocaine 1 patch 07/21/24 00:15 Lidocaine 5% Patch TRANSDERM DAILY PRN back pain Metoprolol Tartrate 25 mg 07/21/24 09:00 07/26/24 09:14 Metoprolol Tartrate 25 Mg Tablet PO 25 mg Q12HR MICHAEL Administration Metronidazole 500 mg 07/25/24 22:00 07/26/24 05:14 Metronidazole 500 Mg Tablet PO 500 mg Q8HR MICHAEL Administration Ondansetron HCl 4 mg 07/20/24 10:03 07/25/24 13:18 Ondansetron Inj 4 Mg/2 Ml Vial IV PUSH 4 mg Q4H PRN Administration Nausea Pantoprazole Sodium 20 mg 07/23/24 21:00 07/26/24 09:13 Pantoprazole Sod Sesquihydrate 20 Mg Tab PO 20 mg Q12HR MICHAEL Administration Tramadol HCl 25 mg 07/22/24 11:47 07/26/24 05:44 Tramadol Hcl (*Crx) 25 Mg Tablet PO 25 mg Q4H PRN Administration Pain Rated 6 or Greater Radiology Results: ITS Impressions Chest X-Ray 07/20/24 07:47 Impression: Mild interstitial prominence, nonspecific. Correlate for mild interstitial edema, COPD, or other chronic interstitial change. Stable cardiomegaly. Head CT 07/20/24 07:55 IMPRESSION: 1. Normal aging brain. Cervical Spine CT 07/20/24 07:57 Impression: No acute fracture. Reversal of the normal cervical lordosis with grade 1 anterolisthesis of C3 over C4. Degenerative spondylitic changes, as above. Thoracic/Lumbar Spine CT 07/20/24 08:00 IMPRESSION: 1. Subacute burst fracture of T7, stable from 06/27/2024. 2. Severe thoracic and lumbar spondylosis. 3. Scoliosis. Abdomen/Pelvis CT 07/20/24 09:56 IMPRESSION: 1. Distal sigmoid diverticulitis with small potentially intramural abscess. 2. Cardiomegaly with biatrial enlargement. Labs Labs: Laboratory Results - last 24 hr 07/26/24 06:30 WBC 182.2 H* RBC 3.15 L Hgb 8.9 L Hct 31.9 L MCV 101.3 H MCH 28.3 MCHC 27.9 L RDW 20.4 H Plt Count 214 MPV 11.0 H Immature Gran % (Auto) 0.1 Neut % (Auto) 2.6 L Lymph % (Auto) 97.0 H [place] % (Auto) 0.2 L Eos % (Auto) 0.1 Baso % (Auto) 0.0 L Lymph # (Auto) 176.68 H [place] # (Auto) 0.3 Eos # (Auto) 0.2 Baso # (Auto) 0.0 Abs Immat Gran (auto) 0.26 H Absolute Neuts (auto) 4.8 Absolute Nucleated RBC 0.000 Nucleated RBC % 0.0 Smudge Cells Many Platelet Estimate Adequate Anisocytosis 1+ Ovalocytes 1+ Bibi Cells 1+ Schistocytes None seen Sodium 136 L Potassium 3.3 L Chloride 108 H Carbon Dioxide 21 L Anion Gap 7 BUN 8 Creatinine 0.61 L Estim Creat Clear Calc Not Reportable Estimated GFR > 60 Glucose 111 H Calcium 8.4 Magnesium 1.6 Total Bilirubin 0.8 AST 18 ALT 10 Alkaline Phosphatase 61 Total Protein 5.0 L Albumin 2.8 L Quality VTE Prophylaxis VTE prophylaxis: pharmacologic ordered
[2024-07-26 14:00] VITALS: BP 124/78; PULSE 70; RESP 17; TEMP 36.8; O2SAT 99
--- NOTE | 2024-07-26 16:28 | PCPTNOTE ---
On 07/26/24, the student, JOSH Ward, provided care and completed [facility] documentation on this patient. I have reviewed the student's documentation and agree with the findings.
--- NOTE | 2024-07-26 16:47 | PM.PNGS ---
Progress Note: A&P Assessment and Plan (1) Diverticulitis of intestine with abscess: Code(s): K57.80 - Diverticulitis of intestine, part unspecified, with perforation and abscess without bleeding Status: Acute Assessment and Plan: No abdominal pain today, tenderness with movement is improving. No tenderness on my exam. No acute surgical issues. Continue antibiotics per hospitalist. We will sign off at this time. Call with any surgical questions or concerns. Plan I have discussed the patient's case and plan of care with Dr. Vu. Subjective Subjective Date/Time Seen: 07/26/24 16:47 Patient reports: no new complaints, feels better, pain is less and afebrile Interval history: Patient feeling better today. No abdominal pain at the time of my exam. She still has minimal soreness in the left lower quadrant with movement when getting out of bed, but no significant pain today. She is tolerating a diet and eating a little more today. Bowels are moving. No other complaints at this time. Exam Const: General: comfortable and no acute distress Orientation/consciousness: patient oriented x3 GI: Inspection: non-distended GI Palp: Yes Soft to palpation, No Tenderness to palpation present (GI) and No Guarding due to palpation present (GI) Auscultation: normal bowel sounds Objective Data Vital Signs Vital Signs: Vital Signs - 24 hr 07/25/24 20:00 07/25/24 20:36 07/25/24 22:00 Temperature 97.7 F Pulse Rate 81 60 Respiratory Rate 18 Blood Pressure 131/75 Pulse Oximetry 100 Oxygen Delivery Room Air 07/26/24 06:00 07/26/24 08:00 07/26/24 09:14 Temperature 98.2 F Pulse Rate 64 89 Respiratory Rate 18 Blood Pressure 140/81 Pulse Oximetry 100 Oxygen Delivery Room Air 07/26/24 14:00 Temperature 98.2 F Pulse Rate 70 Respiratory Rate 17 Blood Pressure 124/78 Pulse Oximetry 99 Oxygen Delivery Intake/Output Intake/Output: Intake & Output 07/23/24 07/24/24 07/25/24 07/26/24 23:59 23:59 23:59 23:59 Intake Total 3079 3020 2875 1630 Balance 3079 3020 2875 1630 Meds/Results Medications: Active Medications Generic Name Dose Route Start Last Admin Trade Name Freq PRN Reason Stop Dose Admin Acetaminophen 650 mg 07/20/24 10:03 07/26/24 12:49 Acetaminophen 325 Mg Tablet PO 650 mg Q4H PRN Administration Mild Pain (1-3) or Fever Apixaban 2.5 mg 07/21/24 09:00 07/26/24 09:13 Apixaban 2.5 Mg Tablet PO 2.5 mg Q12HR MICHAEL Administration Ascorbic Acid 125 mg 07/21/24 09:00 07/26/24 09:13 Ascorbic Acid 125 Mg Tablet PO 125 mg DAILY MICHAEL Administration Celecoxib 100 mg 07/22/24 11:48 07/23/24 08:45 Celecoxib 100 Mg Capsule PO 100 mg DAILY PRN Administration pain not managed with Tylenol/tramadol Cyanocobalamin 1,000 mcg 07/21/24 09:00 07/26/24 09:13 Cyanocobalamin 1,000 Mcg Tablet PO 1,000 mcg DAILY MICHAEL Administration Fish Oil 1 gm 07/21/24 09:00 07/26/24 09:13 [place] 3 Polyunsat Fatty Acids 1 Gm Cap PO 1 gm QAM MICHAEL Administration Sodium Chloride 1,000 mls @ 50 mls/hr 07/20/24 10:05 07/26/24 09:15 Normal Saline Iv IV CONT Not Given .Q20H MICHAEL Cefepime HCl 1 gm in 50 mls @ 100 mls/hr 07/25/24 16:30 07/26/24 04:20 Maxipime 1 Gm/Ns 50 Ml IVPB Infused Q12H MICHAEL Infusion Lidocaine 1 patch 07/21/24 00:15 Lidocaine 5% Patch TRANSDERM DAILY PRN back pain Metoprolol Tartrate 25 mg 07/21/24 09:00 07/26/24 09:14 Metoprolol Tartrate 25 Mg Tablet PO 25 mg Q12HR MICHAEL Administration Metronidazole 500 mg 07/25/24 22:00 07/26/24 13:01 Metronidazole 500 Mg Tablet PO 500 mg Q8HR MICHAEL Administration Ondansetron HCl 4 mg 07/20/24 10:03 07/25/24 13:18 Ondansetron Inj 4 Mg/2 Ml Vial IV PUSH 4 mg Q4H PRN Administration Nausea Pantoprazole Sodium 20 mg 07/23/24 21:00 07/26/24 09:13 Pantoprazole Sod Sesquihydrate 20 Mg Tab PO 20 mg Q12HR MICHAEL Administration Tramadol HCl 25 mg 07/22/24 11:47 07/26/24 05:44 Tramadol Hcl (*Crx) 25 Mg Tablet PO 25 mg Q4H PRN Administration Pain Rated 6 or Greater Radiology Results: ITS Impressions Chest X-Ray 07/20/24 07:47 Impression: Mild interstitial prominence, nonspecific. Correlate for mild interstitial edema, COPD, or other chronic interstitial change. Stable cardiomegaly. Head CT 07/20/24 07:55 IMPRESSION: 1. Normal aging brain. Cervical Spine CT 07/20/24 07:57 Impression: No acute fracture. Reversal of the normal cervical lordosis with grade 1 anterolisthesis of C3 over C4. Degenerative spondylitic changes, as above. Thoracic/Lumbar Spine CT 07/20/24 08:00 IMPRESSION: 1. Subacute burst fracture of T7, stable from 06/27/2024. 2. Severe thoracic and lumbar spondylosis. 3. Scoliosis. Abdomen/Pelvis CT 07/20/24 09:56 IMPRESSION: 1. Distal sigmoid diverticulitis with small potentially intramural abscess. 2. Cardiomegaly with biatrial enlargement. Labs Labs: Laboratory Results - last 24 hr 07/26/24 06:30 WBC 182.2 H* RBC 3.15 L Hgb 8.9 L Hct 31.9 L MCV 101.3 H MCH 28.3 MCHC 27.9 L RDW 20.4 H Plt Count 214 MPV 11.0 H Immature Gran % (Auto) 0.1 Neut % (Auto) 2.6 L Lymph % (Auto) 97.0 H [place] % (Auto) 0.2 L Eos % (Auto) 0.1 Baso % (Auto) 0.0 L Lymph # (Auto) 176.68 H [place] # (Auto) 0.3 Eos # (Auto) 0.2 Baso # (Auto) 0.0 Abs Immat Gran (auto) 0.26 H Absolute Neuts (auto) 4.8 Absolute Nucleated RBC 0.000 Nucleated RBC % 0.0 Smudge Cells Many Platelet Estimate Adequate Anisocytosis 1+ Ovalocytes 1+ [place] Cells 1+ Schistocytes None seen Sodium 136 L Potassium 3.3 L Chloride 108 H Carbon Dioxide 21 L Anion Gap 7 BUN 8 Creatinine 0.61 L Estim Creat Clear Calc Not Reportable Estimated GFR > 60 Glucose 111 H Calcium 8.4 Magnesium 1.6 Total Bilirubin 0.8 AST 18 ALT 10 Alkaline Phosphatase 61 Total Protein 5.0 L Albumin 2.8 L
[2024-07-26 20:45] VITALS: PULSE 69
[2024-07-26 21:14] VITALS: BP 125/62; PULSE 69; RESP 13; TEMP 36.2; O2SAT 99
[2024-07-27] MEDS: traMADol HCL (*CRX) 25 MG TABLET PO (01:39)
[2024-07-27] MEDS: CEFEPIME 1 GM/NS 50 ML 1 GM/50 ML BAG IVPB (03:36)
[2024-07-27] MEDS: SODIUM CHLORIDE 0.9% IV 1,000 ML 50 ML IV CONT (05:42)
[2024-07-27] MEDS: ACETAMINOPHEN 325 MG TABLET 650 MG PO (05:43)
[2024-07-27] MEDS: metroNIDAZOLE 500 MG TABLET PO (05:43)
[2024-07-27 05:57] VITALS: BP 161/85; PULSE 74; RESP 12; TEMP 36.2; O2SAT 98
[2024-07-27 07:42] LABS: Eosinophils Absolute Auto 0.2 K/mm3 (0-0.3); Eosinophils Percent Auto 0.1 % (0-4.4); Hematocrit 31.5 % (37.0-47.0); Immature Granulocyte Percent A 0.1 % (0-0.5); Lymphocytes Percent Auto 96.4 % (18.3-44.2); Mean Corpuscular HGB Conc 28.6 g/dl (32-36); Mean Corpuscular Hemoglobin 28.8 pg (26-34); Mean Platelet Volume 10.9 fl (7.4-10.4); Monocytes Absolute Auto 0.3 K/mm3 (0.1-0.6); Monocytes Percent Auto 0.2 % (2.6-8.5); Neutrophils Percent Auto 3.2 % (45.5-73.1); Platelet Count Result 200 k/mm3 (150-375); Red Blood Count 3.12 M/mm3 (4.2-5.4); Red Cell Distribution Width 20.1 % (11.5-14.5)
[2024-07-27 08:05] LABS: Alanine Aminotransferase 8 U/L (6-35); Albumin Level 2.8 g/dL (3.5-5.1); Alkaline Phosphatase 59 U/L (38-126); Anion Gap 6 mmol/L (4-12); Aspartate Amino Transferase 17 U/L (14-36); Bilirubin,Total 0.7 mg/dL (0.2-1.3); Blood Urea Nitrogen 8 mg/dL (7-17); Calcium 8.6 mg/dL (8.4-10.2); Carbon Dioxide 23 mmol/L (22-30); Chloride 108 mmol/L (98-107); Estimated Glomerular Filt Rate > 60; Glucose 103 mg/dL (65-110); Magnesium 1.7 mg/dL (1.6-2.3); Potassium 3.7 mmol/L (3.4-5.0); Sodium 137 mmol/L (137-145)
[2024-07-27 08:19] LABS: Ovalocytes 1+; Platelet Estimate Adequate (Adequate); Schistocytes None Seen; Smudge Cells MANY
[2024-07-27 08:20] LABS: Anisocytosis 1+
[2024-07-27 08:21] LABS: Burr Cells 1+
[2024-07-27 10:34] VITALS: PULSE 76
[2024-07-27] MEDS: APIXABAN 2.5 MG TABLET PO (10:34)
[2024-07-27] MEDS: ASCORBIC ACID 125 MG TABLET PO (10:34)
[2024-07-27] MEDS: METOPROLOL TARTRATE 25 MG TABLET PO (10:34)
[2024-07-27] MEDS: PANTOPRAZOLE SOD SESQUIHYDRATE 20 MG TAB PO (10:34)
[2024-07-27] MEDS: OMEGA 3 POLYUNSAT FATTY ACIDS 1 GM CAP PO (10:34)
[2024-07-27] MEDS: CYANOCOBALAMIN 1,000 MCG TABLET 1000 MCG PO (10:34)
--- NOTE | 2024-07-27 11:43 | P.DS_ITS ---
DS: Admitting Diagnosis Discharge Date 07/27/24 Admitting Diagnosis Fall, confusion DS: Discharge Diagnosis Discharge Diagnosis (1) Sepsis: Code(s): A41.9 - Sepsis, unspecified organism Status: Resolved (2) Diverticulitis of intestine with abscess: Code(s): K57.80 - Diverticulitis of intestine, part unspecified, with perforation and abscess without bleeding Status: Acute (3) CLL (chronic lymphocytic leukemia): Code(s): C91.10 - Chronic lymphocytic leukemia of B-cell type not having achieved remission Status: Chronic (4) Chronic anemia: Code(s): D64.9 - Anemia, unspecified Status: Chronic (5) Hypertension: Qualifiers: Hypertension type: primary hypertension Qualified Code(s): I10 - Essential (primary) hypertension Code(s): I10 - Essential (primary) hypertension Status: Chronic (6) Burst fracture of thoracic vertebra: Code(s): S22.001A - Stable burst fracture of unspecified thoracic vertebra, initial encounter for closed fracture Status: Acute (7) Fall from ground level: Code(s): W18.30XA - Fall on same level, unspecified, initial encounter Status: Acute (8) Hypokalemia: Code(s): E87.6 - Hypokalemia Status: Acute (9) Acute confusion: Code(s): R41.0 - Disorientation, unspecified Status: Acute DS: Summary Hospital Course Hospital Course: Initial VS at presentation: 97.9? F, HR 96, RR 16, 174/90, and 100% on RA. ED workup showed: WBC 234.3, hemoglobin 10.0 (previously 9.3 on 07/14/2024), INR 1.5, no significant electrolyte derangements, creatinine 0.73 and GFR >60, glucose 142, initial troponin negative, and UA showed 1+ protein, low +ketones, 3+ blood, greater than 100 RBC, and 6-10 WBC with no epithelial cells or bacteria. CXR showed mild interstitial prominence, nonspecific and stable cardiomegaly. Head CT showed normal aging brain. C-spine CT showed no acute fracture, reversal the normal cervical lordosis with grade 1 anterolisthesis of C3 over C4, degenerative spondylitic changes. CT thoracic/lumbar showed subacute burst fracture of T7 stable from 06/27/2024, severe thoracic and lumbar spondylosis, and scoliosis. CT of the abdomen/pelvis showed distal sigmoid diverticulosis with small potentially intramural abscess and cardiomegaly with biatrial enlargement. Urine culture negative, Blood cultures no growth. Patient followed by Surgery. Patient received IV Cefepime and Flagyl oral. Patients chemo Zanubrutinib and Allopurinol discontinued on 07/25/24. WBC improving to 159.0. Abdominal pain improved and patient tolerated a low fiber diet. No surgery needed at this time, surgery signed off. Patient discharged home on Augmentin 875-125 mg PO q 12. Per daughter patient underwent the vertebroplasty on Wednesday, 07/[address] Sanabria. She has no restrictions with ambulation besides requiring the TLSO brace. Patient worked with PT/OT. Discharge home with Home therapy. Patient to follow up with Oncologist and primary care provider. Status at Discharge Functional status at discharge: uses cane/walker Overall status at discharge: patient is progressing back to baseline Time Spent with Patient Time attestation: Total time spent providing and/or coordinating discharge services: Time spent: Greater than 30 minutes Exam Const: General: comfortable and no acute distress Eyes: Sclera: sclerae normal Resp: Effort & Inspection: normal respiratory effort Auscultation: clear to auscultation bilaterally Cardio: Rate: regular rate Rhythm: regular rhythm GI: GI Palp: Yes Soft to palpation Auscultation: normal bowel sounds Skin: General skin exam: no rashes or lesions noted Extrem: General: no pedal edema Psych: Mental Status: mental status grossly normal Affect: normal affect DS: Data Data Completed and Pending Labs on day of discharge: Labs from last 24 hours 07/27/24 07:21 WBC 159.0 H* RBC 3.12 L Hgb 9.0 L Hct 31.5 L MCV 101.0 H MCH 28.8 MCHC 28.6 L RDW 20.1 H Plt Count 200 MPV 10.9 H Immature Gran % (Auto) 0.1 Neut % (Auto) 3.2 L Lymph % (Auto) 96.4 H [place] % (Auto) 0.2 L Eos % (Auto) 0.1 Baso % (Auto) 0.0 L Lymph # (Auto) 153.30 H [place] # (Auto) 0.3 Eos # (Auto) 0.2 Baso # (Auto) 0.0 Abs Immat Gran (auto) 0.20 H Absolute Neuts (auto) 5.0 Absolute Nucleated RBC 0.000 Nucleated RBC % 0.0 Smudge Cells Many Platelet Estimate Adequate Anisocytosis 1+ Ovalocytes 1+ Bibi Cells 1+ Schistocytes None seen Sodium 137 Potassium 3.7 Chloride 108 H Carbon Dioxide 23 Anion Gap 6 BUN 8 Creatinine 0.59 L Estim Creat Clear Calc Not Reportable Estimated GFR > 60 Glucose 103 Calcium 8.6 Magnesium 1.7 Total Bilirubin 0.7 AST 17 ALT 8 Alkaline Phosphatase 59 Total Protein 5.0 L Albumin 2.8 L Discharge Plan Discharge Attending physician on discharge: Antony Barron Discharging Clinician: Coty Regalado Anticipated Discharge Date/Time: 07/27/24 13:30 Patient Disposition: Home Health Service Activity: may shower and as tolerated Diet: low fiber Discharge Instructions: * Care Coordination: Patient to have [facility] for PT/OT eval and treat, and assisted. Their phone number is [phone], if you have any questions; they will contact you to schedule their first visit. JACK escobar fax discharge instructions to [phone]. * Take all doses of antibiotics. * Report any fever >100.5 to provider or oncologist. * Avoid sick contacts. * Use walker and brace when getting up. * You may take a probiotic or eat yogurt to prevent diarrhea from antibiotic. Thank you for entrusting [facility] with your healthcare! Patient Instructions: Antibiotic Form, Apixaban (By mouth), Diverticulitis (DC), Low Fiber Diet (DC) Patient Language: [place] Stand Alone Forms: General Discharge Information Follow-up/Referrals: Nicholas Gibson MD [Physician] - 1 Week Eliseo Waters DO [Primary Care Provider] - 1 Week Discharge Medications: New acetaminophen 325 mg Tablet 650 mg PO Q4H PRN (Reason: Mild Pain (1-3) Or Fever) Qty: 60 0RF amoxicillin-pot clavulanate 875-125 mg tablet 1 tablet PO Q12H Qty: 9 0RF Continued ascorbic acid (vitamin C) 100 mg tablet,chewable 100 mg PO DAILY [place]-3 Plus Vitamin D3 150-500-200 mg-mg-unit capsule,delayed release(DR/EC) 1 cap PO DAILY nystatin 100,000 unit/gram powder 1 applic topical BID Qty: 15 0RF Rx Instructions: Apply under left breast BID for 7-14 days cyanocobalamin (vitamin B-12) 1,000 mcg Tablet 1,000 mcg PO DAILY Alive Women's 50 Plus (blend) 240-120-300 mcg Tablet 1 tablet PO DAILY Eliquis 2.5 mg Tablet 2.5 mg PO Q12HR Qty: 60 0RF metoprolol tartrate 25 mg tablet 25 mg PO BID Discontinued zanubrutinib 80 mg capsule See Rx Instructions .ROUTE .COMPLEX Rx Instructions: Ordered per oncology allopurinol 300 mg tablet 300 mg PO DAILY Date of admission: 07/22/24 16:12 Primary Care Provider: Eliseo Waters Admitting Provider: Lyssa Hagan Attending physician on admission: Debora Marcus Condition: Stable Hospitalist MIPS Heart Failure (Exclusion) Patient has history of Heart Transplant or Left Ventricular Assistive Device?: No IF YES, STOP HERE Heart Failure (Qualifier) Patient has current or prior documentation of LVEF less than or equal to 40%, or mod/servere depressed LVSF?: No IF NO, STOP HERE
[2024-07-27] MEDS: AMOXICILLIN/CLAVULANATE K 875-125 MG TAB 1 TABLET PO (13:12)
== END 2024-07-27 14:20 | disposition home health service (06) | DRG 872 ==
LOC: ANHED 10:03 → ANH3MEDSUR 11:09
PROVIDERS: Nurse Practitioner; Student in an Organized Health Care Education/Training Program; Admitting Provider Hospitalist; Emergency Provider Emergency Medicine; PCP Internal Medicine; Visit Provider Nurse Practitioner Family
DX: A41.9 Sepsis, unspecified organism (principal); K57.20 Diverticulitis of large intestine with perforation and abscess without bleeding; C91.10 Chronic lymphocytic leukemia of B-cell type not having achieved remission; I48.91 Unspecified atrial fibrillation; S22.061D Stable burst fracture of T7-T8 vertebra, subsequent encounter for fracture with routine healing; I35.0 Nonrheumatic aortic (valve) stenosis; I10 Essential (primary) hypertension; R41.0 Disorientation, unspecified; I27.20 Pulmonary hypertension, unspecified; E87.6 Hypokalemia; D64.9 Anemia, unspecified; W18.30XA Fall on same level, unspecified, initial encounter; M47.814 Spondylosis without myelopathy or radiculopathy, thoracic region; M47.816 Spondylosis without myelopathy or radiculopathy, lumbar region; Z20.822 Contact with and (suspected) exposure to COVID-19; Z79.01 Long term (current) use of anticoagulants
CPT/HCPCS: 36415; 70450; 71045; 72125; 72128; 72131; 74177; 80053; 81001; 82550; 82948; 83605; 83690; 83735; 84484; 85025; 85610; 85730; 87040; 87086; 87637; 93005; 96361; 96365; 96366; 96367; 96375; 97110; 97116; 97161; 97166; 97530; 97535; 99285; A9270; G0378; J0692; J1836; J1956; J2405; J7030; J7120; Q9967

== ENCOUNTER 2024-08-07 13:11 | Outpatient (CLI) | payer MEDICARE, SELFPAY ==
--- OUTSIDE RECORDS SUMMARY | 2024-08-07 13:24 | XMS_ITS | Clinical Summary ---
Author Organization Unknown Care Team Providers [employer] Name Role Phone KENNETH RADIOLOGIST, VALERIO Unavailable Unavailable GREGORIA CREAM GATHERER, SNEHA Un available Unavailable CADE PHYSICAL THERAPIST, CAMILLE Unavailable Unavailable DEBBIE [facility], TINY Unavail able Unavailable RAQUEL REGISTERED NURSE SOFTWARE SUPPORT ENGINEER, RUSS Mera vailable Unavailable NGUYEN ROCA COUNSELOR, LICO Unavailable Unavailable KEON OCCUPATIONAL THERAPIST, ELISEO Unavailable Unavailable Payers Payer Name Policy Type Policy Number Effective Date Expira tion Date [employer] MEDICARE ADVANTAGE - EPISODIC SELF PAY - SECONDARY (CO-PAY)/DEDUCTIBLE Problems Condition Name Condition Details Condition Category Status Onset Date Resolution Date Last Treatment Date Treating Clinician Comments CHRONIC LYMPHOCYTIC LEUK OF B-CELL TYPE NOT ACHIEVE REMIS Active 07-17 00:00: 00 UNSPECIFIED ATRIAL FIBRILLATION Active 06-28 00:00: 00 ESSENTIAL (PRIMARY) HYPERTENSION Active 06-28 00:00: 00 PULMONARY HYPERTENSION , UNSPECIFIED Active 06-28 00:00: 00 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 06-28 00:00: 00 AGE-REL OSTEOPOR W CRNT PATH FX, VERTEB, 7THD Active 06-28 00:00: 00 OTHER CHRONIC PAIN Active 06-28 00:00: 00 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 06-28 00:00: 00 PERSONAL HISTORY OF URINARY (TRACT) INFECTIONS Active 06-28 00:00: 00 RETIREMENT (CURRENT) USE OF ANTICOAGULAN TS Active 06-28 00:00: 00 OTHER RETIREMENT (CURRENT) DRUG THERAPY Active 06-28 00:00: 00 HISTORY OF FALLING Active 06-28 00:00: 00 Allergies, Adverse Reactions, Alerts Allergy Name Allergy Type Status Severity Reaction(s) Onset Date Inactive Date Treating Clinician Comments TETRACYCLINE Propensity to adverse reactions Active 07-18 09:18: 57 IBRUTINIB Propensity to adverse reactions Active 07-18 09:19: 04 Medications Ordered Medication Name Filled Medication Name Start Date Stop Date Current Medication? Ordering Clinician Indication Dosage Frequency Signature (SIG) Comments Components allopurinol 300 mg tablet 07-18 00:00: 00 Yes [id number] HELP WITH SIDE EFFECTS OF BRUKINSA 1 tablet ONCE DAILY 1 tablet ONCE DAILY (route: oral) Med Classific ation: Gout and Hyperuric emia Therapy Brukinsa 80 mg capsule 07-18 00:00: 00 Yes [id number] CANCER 2 capsule TWICE DAILY 2 capsule TWICE DAILY (route: oral) Med Classific ation: Antineopl astics calcium 500 mg (as calcium carbonate 1,250 mg) tablet 07-18 00:00: 00 Yes [id number] SUPPLEMENT 1 tablet ONCE DAILY 1 tablet ONCE DAILY (route: oral) Med Classific ation: Electroly te Balance-N utritiona l Products Dulcolax (bisacodyl) 5 mg tablet,alessio yed release 07-18 00:00: 00 Yes [id number] CONSTIPATIO N 1 tablet ONCE DAILY 1 tablet ONCE DAILY (route: oral) Med Classific ation: Gastroint estinal Therapy Agents Eliquis 2.5 mg tablet 07-18 00:00: 00 Yes [id number] PREVENT CLOTS 1 tablet TWICE DAILY 1 tablet TWICE DAILY (route: oral) Med Classific ation: Hematolog ical Agents hydrocodone 10 mg-acetamin ophen 325 mg tablet 07-18 00:00: 00 Yes [id number] PAIN 1 tablet 3 TIMES DAILY 1 tablet 3 TIMES DAILY (route: oral) Med Classific ation: Analgesic , Anti-infl ammatory or Antipyret ic metoprolol tartrate 25 mg tablet 07-18 00:00: 00 Yes [id number] HYPERTENSIO N 1 tablet TWICE DAILY 1 tablet TWICE DAILY (route: oral) Med Classific ation: Cardiovas cular Therapy Agents Miralax 17 gram/dose oral powder 07-18 00:00: 00 Yes [id number] CONSTIPATIO N Per instruc tions ONCE DAILY Per instructio ns ONCE DAILY (route: oral) Med Classific ation: Gastroint estinal Therapy Agents Vitamin D3 10 mcg (400 unit) tablet 07-18 00:00: 00 Yes [id number] SUPPLEMENT 1 tablet ONCE DAILY 1 tablet ONCE DAILY (route: oral) Med Classific ation: Electroly te Balance-N utritiona l Products acetaminoph en 325 mg capsule 07-28 00:00: 00 Yes [id number] PAIN 2 capsule EVERY 6 HOURS 2 capsule EVERY 6 HOURS (route: oral) Med Classific ation: Analgesic , Anti-infl ammatory or Antipyret ic Immunizations Ordered Immunization Name Filled Immunization Name Date Status Comments Refusal Reason INFLUENZA, TIV (INACTIVATED) 2024-07-19 00:00:00 PNEUMOCOCCAL (PPV), PPV 2024-07-19 00:00:00 Vital Signs Vital Name Observation Time Observation Value Commen ts Temperature 2024-08-04 09:16:00.000 99.1 [degF] Temperature 2024-08-01 10:27:59.000 98 [degF] Temperature 2024-07-31 09:55:00.000 98.1 [degF] Temperature 2024-07-29 10:37:00.000 97.4 [degF] Temperature 2024-07-19 10:38:00.000 97.8 [degF] BMI (%) 2024-07-29 10:37:00.000 22 kg/m2 BMI (%) 2024-07-19 10:38:00.000 24 kg/m2 Height 2024-07-29 10:37:00.000 58 [in_us] Height 2024-07-19 10:38:00.000 56 [in_us] Pulse 2024-08-04 09:16:00.000 78 /min Pulse 2024-08-01 10:28:27.000 68 /min Pulse 2024-07-31 09:55:00.000 74 /min Pulse 2024-07-29 10:37:00.000 78 /min Pulse 2024-07-19 10:38:00.000 76 /min O2 Saturation (%) 2024-08-04 09:16:00.000 97 % O2 Saturation (%) 2024-07-31 09:55:00.000 99 % O2 Saturation (%) 2024-07-29 10:37:00.000 98 % O2 Saturation (%) 2024-07-19 10:38:00.000 94 % Respirations 2024-08-04 09:16:00.000 17 /min Respirations 2024-07-31 09:55:00.000 18 /min Respirations 2024-07-29 10:37:00.000 18 /min Respirations 2024-07-19 10:38:00.000 16 /min Weight (lbs) 2024-08-04 09:20:00.000 115 [lb_av] Weight (lbs) 2024-08-01 10:28:40.000 110 [lb_av] Weight (lbs) 2024-07-29 10:37:00.000 110 [lb_av] Weight (lbs) 2024-07-19 10:38:00.000 110 [lb_av] Systolic Blood Pressure 2024-08-04 09:16:00.000 140 mm [Hg] Systolic Blood Pressure 2024-08-01 10:28:13.000 120 mm [Hg] Systolic Blood Pressure 2024-07-31 09:55:00.000 118 mm [Hg] Systolic Blood Pressure 2024-07-29 10:37:00.000 132 mm [Hg] Systolic Blood Pressure 2024-07-19 10:41:00.000 150 mm [Hg] Diastolic Blood Pressure 2024-08-04 09:16:00.000 84 mm [Hg] Diastolic Blood Pressure 2024-08-01 10:28:13.000 66 mm [Hg] Diastolic Blood Pressure 2024-07-31 09:55:00.000 84 mm [Hg] Diastolic Blood Pressure 2024-07-29 10:37:00.000 74 mm [Hg] Diastolic Blood Pressure 2024-07-19 10:41:00.000 80 mm [Hg] Plan of Treatment Planned Activity Planned Date Details Comments Future Scheduled Test HOME HEALT H NURSE WILL TEACH PATIENT/CAREGIVER ABOUT THE USE OF A SYMPTOM LOG TO MONITOR PHYSICAL SIDE EFFECTS. HOME HEALTH NURSE WILL MONITOR THE RECORDED SYMPTOM LOG AND INFORM THE PHYSICIAN OF SYMPTOMS SO CHANGES CAN BE MADE WITH PRESCRIBED MEDICATIONS/TREATMENTS TO ALLEVIATE DISCOMFORT. [code = HOME HEALTH NURSE WILL TEACH PATIENT/CAREGIVER ABOUT THE USE OF A SYMPTOM LOG TO MONITOR PHYSICAL SIDE EFFECTS. HOME HEALTH NURSE WILL MONITOR THE RECORDED SYMPTOM LOG AND INFORM THE PHYSICIAN OF SYMPTOMS SO CHANGES CAN BE MADE WITH PRESCRIBED MEDICATIONS/TREATMENTS TO ALLEVIATE DISCOMFORT.] Future Scheduled Test HOME HEALT H NURSE WILL ASSESS FOR COMPLICATIONS RELATED TO ANEMIA AND INSTRUCT PATIENT/CAREGIVER ABOUT CAUSES, PRESCRIBED TREATMENT, AND SIGNS/SYMPTOMS TO REPORT. [code = HOME HEALTH NURSE WILL ASSESS FOR COMPLICATIONS RELATED TO ANEMIA AND INSTRUCT PATIENT/CAREGIVER ABOUT CAUSES, PRESCRIBED TREATMENT, AND SIGNS/SYMPTOMS TO REPORT.] Future Scheduled Test SKILLED NU RSE TO INSTRUCT PATIENT/CAREGIVER ON WHAT IS HYPERTENSION, HOW TO CHECK HIS/HER BLOOD PRESSURE, AND STRATEGIES TO USE TO CONTROL BLOOD PRESSURE SUCH MONITORING BP, MONITORING WEIGHTS, ENGAGING IN PHYSICAL ACTIVITY AIMING FOR 150 MINUTES SPREAD THROUGHOUT THE WEEK. [code = SKILLED NURSE TO INSTRUCT PATIENT/CAREGIVER ON WHAT IS HYPERTENSION, HOW TO CHECK HIS/HER BLOOD PRESSURE, AND STRATEGIES TO USE TO CONTROL BLOOD PRESSURE SUCH MONITORING BP, MONITORING WEIGHTS, ENGAGING IN PHYSICAL ACTIVITY AIMING FOR 150 MINUTES SPREAD THROUGHOUT THE WEEK.] Future Scheduled Test HOME HEALT H NURSE TO INSTRUCT ON URINARY TRACT INFECTION, PREVENTION, SYMPTOMS AND WHEN TO REPORT TO THE AGENCY, PHYSICIAN, OR 911. [code = HOME HEALTH NURSE TO INSTRUCT ON URINARY TRACT INFECTION, PREVENTION, SYMPTOMS AND WHEN TO REPORT TO THE AGENCY, PHYSICIAN, OR 911.] Future Scheduled Test HOME HEALT H AIDE SERVICE FOR ASSISTANCE WITH PERSONAL CARE, HYGIENE AND ACTIVITIES OF DAILY LIVING. [code = HOME HEALTH AIDE SERVICE FOR ASSISTANCE WITH PERSONAL CARE, HYGIENE AND ACTIVITIES OF DAILY LIVING.] Future Scheduled Test HOME HEALT H NURSE WILL ASSESS FOR COMPLICATIONS RELATED TO ANTICOAGULATION USE AND INSTRUCT PATIENT/CAREGIVER ABOUT PRECAUTIONS TO FOLLOW AND SIGNS/SYMPTOMS TO REPORT. [code = HOME HEALTH NURSE WILL ASSESS FOR COMPLICATIONS RELATED TO ANTICOAGULATION USE AND INSTRUCT PATIENT/CAREGIVER ABOUT PRECAUTIONS TO FOLLOW AND SIGNS/SYMPTOMS TO REPORT.] Future Scheduled Test EACH ORDER ED IN-HOME OR TELEHEALTH VISIT, THE SKILLED NURSE WILL CONDUCT A COMPREHENSIVE ASSESSMENT INCLUDING VITAL SIGNS, PAIN, SAFETY, MENTAL/COGNITIVE/PSYCHOSOCIAL STATUS, MED MANAGEMENT, NUTRITION, SKIN INTEGRITY, PRESSURE ULCER PREVENTION, AND PATIENT/CAREGIVER ABILITY TO SUPPORT ORDERED CARE. SKILLED NURSE WILL INSTRUCT ON DISEASE PROCESS, MED MGMT., FALL PREVENTION AND SAFETY, INFECTION CONTROL AND PREVENTION, WARNING SIGNS, ADDRESS RESULTS OUTSIDE OF ORDERED PARAMETERS LISTED ON CARE PLAN, AND COORDINATE DISCHARGE WITH THE TREATING PROVIDER. MAY ACCEPT ORDERS FROM THE FOLLOWING PROVIDER(S) WHO WILL BE CONSULTING ON THE CERTIFIED CARE PLAN: VALERIO COOPER NP [code = EACH ORDERED IN-HOME OR TELEHEALTH VISIT, THE SKILLED NURSE WILL CONDUCT A COMPREHENSIVE ASSESSMENT INCLUDING VITAL SIGNS, PAIN, SAFETY, MENTAL/COGNITIVE/PSYCHOSOCIAL STATUS, MED MANAGEMENT, NUTRITION, SKIN INTEGRITY, PRESSURE ULCER PREVENTION, AND PATIENT/CAREGIVER ABILITY TO SUPPORT ORDERED CARE. SKILLED NURSE WILL INSTRUCT ON DISEASE PROCESS, MED MGMT., FALL PREVENTION AND SAFETY, INFECTION CONTROL AND PREVENTION, WARNING SIGNS, ADDRESS RESULTS OUTSIDE OF ORDERED PARAMETERS LISTED ON CARE PLAN, AND COORDINATE DISCHARGE WITH THE TREATING PROVIDER. MAY ACCEPT ORDERS FROM THE FOLLOWING PROVIDER(S) WHO WILL BE CONSULTING ON THE CERTIFIED CARE PLAN: VALERIO COOPER RADIOLOGIST] Future Scheduled Test THE CER TIFYING PHYSICIAN, ASSOCIATED PHYSICIAN, NPP OR PA WITHIN THE SAME GROUP MAY APPROVE AND SIGN THE ORDER (ON ANY PAGE) ATTESTING THAT THE COMPREHENSIVE OUTCOME ASSESSMENTS, EVALUATIONS, AND HOME HEALTH CERTIFICATION PLANS SUPPORT HOMEBOUND STATUS. HOME HEALTH WEB-PORTAL DOCUMENTATION ACCESSED BY THE PHYSICIAN MUST BE INCORPORATED INTO THE MEDICAL RECORD TO CORROBORATE THE PHYSICIAN, NPP, OR PAS F2F ENCOUNTER TO SUPPORT ELIGIBILITY FOR HOME HEALTH SERVICES. [code = THE CERTIFYING PHYSICIAN, ASSOCIATED PHYSICIAN, NPP OR PA WITHIN THE SAME GROUP MAY APPROVE AND SIGN THE ORDER (ON ANY PAGE) ATTESTING THAT THE COMPREHENSIVE OUTCOME ASSESSMENTS, EVALUATIONS, AND HOME HEALTH CERTIFICATION PLANS SUPPORT HOMEBOUND STATUS. HOME HEALTH WEB-PORTAL DOCUMENTATION ACCESSED BY THE PHYSICIAN MUST BE INCORPORATED INTO THE MEDICAL RECORD TO CORROBORATE THE PHYSICIAN, NPP, OR PAS F2F ENCOUNTER TO SUPPORT ELIGIBILITY FOR HOME HEALTH SERVICES.] Goal 2024-07-29 Patient Goal - S OC- 07/19/24: TO GET STRONGER AND FEEL BETTER Goal Patient Goal - S OC- 07/19/24: TO GET STRONGER AND FEEL BETTER MARK- 07/29/24- TO HAVE NO MORE FALLS Goal Provider Goal - PATIENT/CAREGIVER WILL DEMONSTRATE THE USE OF SYMPTOM LOG AND HOW TO IDENTIFY WHEN TO CALL THE TREATING PROVIDER. Goal Provider Goal - PATIENT/CAREGIVER WILL VERBALIZE UNDERSTANDING OF THE CAUSES OF ANEMIA, SIGNS/SYMPTOMS TO REPORT, AND ADHERENCE TO PRESCRIBED TREATMENT BY END OF HOME HEALTH SERVICES. Goal Provider Goal - PATIENT/CAREGIVER WILL INDEPENDENTLY DEMONSTRATE HOW TO CHECK HIS/HER OWN BP AND VERBALIZE WHAT STRATEGIES CAN ASSIST TO CONTROL BLOOD PRESSURE. Goal Provider Goal - PATIENT/CAREGIVER WILL INDEPENDENTLY VERBALIZE WAYS TO PREVENT A UTI AND VERBALIZE SYMPTOMS TO REPORT TO THE PHYSICIAN BY THE END OF HOME HEALTH SERVICES. Goal Provider Goal - PATIENT WILL RECEIVE ASSISTANCE WITH PERSONAL CARE AND HYGIENE AND OTHER ACTIVITIES OF DAILY LIVING NEEDED. Goal Provider Goal - PATIENT/CAREGIVER WILL VERBALIZE UNDERSTANDING OF ANTICOAGULATION COMPLICATIONS TO REPORT AND PRECAUTIONS TO FOLLOW BY END OF HOME HEALTH SERVICES. Goal Provider Goal - PATIENT WILL BE FREE OF FALLS AND HOSPITALIZATIONS THROUGHOUT EPISODE OF CARE. PATIENT/CAREGIVER WILL UNDERSTAND AND ADHERE TO ORDERED DIET. PATIENT/CAREGIVER WILL INDEPENDENTLY MANAGE MEDICATIONS, UNDERSTAND ANY CHANGES, SIDE EFFECTS TO REPORT BY DISCHARGE. PATIENT WILL BE FREE OF INFECTION AND UNDERSTAND MEASURES OF PREVENTION. PATIENT/CAREGIVER WILL COLLABORATE WITH SKILLED NURSE TO DEVELOP POC AT SOC AND ON AN ONGOING BASIS UPDATES ARE NEEDED. UNDERSTAND PROGRESS MADE/DISCHARGE PLANNING. ADDITIONAL ORDERS WILL BE RECEIVED FROM ALTERNATE PHYSICIANS IN A TIMELY MANNER. Goal Provider Goal - A PLAN OF CARE WILL BE ESTABLISHED THAT MEETS ALL PATIENT'S USP NEEDS AND COUNTER SIGNED BY PHYSICIAN. Progress Notes Progress Notes <paragraph>[Visit Date: 2024 by RUSS GARCÍA REGISTERED NURSE SOFTWARE SUPPORT ENGINEER]:</paragraph><paragraph>PTNT BEING SEEN BY SN FOR CLL. SN GREETED AT DOOR BY PTNT CG. ENTERED HOME TO FIND PTNT IN BATHROOM. USED WALKER TO AMBULATE TO LIFT CHAIR WITH SLOW STEADY GAIT. PTNT CG PRESENT DURING VISIT. SAW VALERIO COOPER AND AALIYAH GRAJEDA YESTERDAY WITH NO CHANGES TO POC. PTNT ANOX4, ACTIVELY PARTICIPATING IN CARE WITH PLEASANT AFFECT. COMPREHENSIVE ASSESSMENT COMPLETED. VSS, HR REG, LUNGS CTA, BSX4, ABD SOFT NONTENDER, BM'S NORMAL, LBM 08/02/24, NO EDEMA, +2 PEDAL PULSES. PTNT DENIES, CHEST PAIN, FEVER, CHILLS, AND SOB. SKIN CHECK COMPLETED. PTNT DEMONSTRATES NO BREAKDOWN IN SKIN INTEGRITY. WEIGHT 115 LBS. PAIN 8/10 BACK. REPORTED TO LICO WITH VALERIO COOPER, RADIOLOGIST WITH NNO RECEIVED. SN INSTRUCTED PTNT ON NONPHARMACOLOGICAL PAIN MGMT: HEAT/COLD THERAPY, RELAXATION, GUIDED IMAGERY, ETC. PTNT APT 08/13 BONE DENSITY SCAN PTNT STABLE AT SN DEPARTURE FROM HOME. PTNT/CG VERBALIZED UNDERSTANDING OF ALL EDUCATION PROVIDED. PTNT/CG DENY ADDITIONAL QUESTIONS/CONCERNS AND VERBALIZE SATISFACTION WITH CARE AT END OF VISIT.</paragraph> Encounters Start Date/Time End Date/Time Encounter Type Admission Type Attending [facility] Care Department Encounter ID Discharge Date Discharge Status Discharge Condition Discharge Reason Percent Goals Met 2024-07-19 00:00:00 2024-09-16 00:00:00 Outpatient NEW ADMISSION RUSS GARCÍA [facility] [id number]
--- OUTSIDE RECORDS SUMMARY | 2024-08-07 13:24 | XMS_ITS | Data Portability ---
Author Organization [place] [facility], Main Office Address [address] [place] [address] Assessment No assessment recorded. Plan of Treatment [...] bingham am No observ ation record ed. [id number] _[facility]_[address], [place], [address], 08/26/2022 23:11:14 02/20/20 21 01/15/2021 elect kaylan bingham am No observ ation record ed. [id number] 84398 _[address] 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 IMPRES MERT: See above. Create d and electr onical ly signed by: Cricket chadiwck MD Signed Date: 2021 9:15 AM (CT) Dictat ed by: Cricket chadwick MD DD: 2021 9:14 AM (CT) DT: 2021 9:14 AM (CT) Page 2 of 2 [id number] [facility] (Imaging) [address] [place] [address], [address], 08/26/2022 23:11:14 04/14/20 22 04/14/2022 XR, lumbo sacra l spine , 2 or 3 view No observ ation record ed. [id number] [id number] [facility] [address] , [place], [address], 08/26/2022 23:11:14 06/15/20 22 06/15/2022 imagi ng/di agnos tic resul t No observ ation record ed. [id number] [place] [address] [address], [place], [address], 08/26/2022 23:11:14 06/15/20 22 06/15/2022 imagi ng/di agnos tic resul t No observ ation record ed. [id number].[id number] [place] [address] [address], [place], [address], 08/26/2022 23:11:14 06/23/20 22 06/23/2022 CT, abdom en + pelvi s, w/ contr ast No observ ation record ed. [id number] [place] [address], [place], [address], 08/26/2022 23:11:14 07/31/19 23 07/31/2022 CT, abdom en + pelvi s, w/ contr ast No observ ation record ed. MIGRATION.[id number] [place] [address] [address], [place], [address], 08/26/2022 23:11:14 04/02/20 23 04/02/2023 XR, wrist , 3 or more view No observ ation record ed. [address], [place], [address], 04/05/2023 10:20:44 04/02/20 23 04/02/2023 XR, hip, bilat eral, 2 view No observ ation record ed. [address], [place], [address], 04/05/2023 10:22:37 04/02/20 23 04/02/2023 XR, femur , 2 or more view No observ ation record ed. [address], [place], [address], 04/05/2023 10:23:23 04/03/2004/03/2023 CT, hip, w/o contr ast No observ ation record ed. [address], [place], [address], 04/05/2023 10:24:12 04/03/2004/03/2023 XR, chest , 2 view No observ ation record ed. [address], [place], [address], 04/05/2023 10:25:09 04/05/20 23 04/05/2023 stres s echoc ardio gram No observ ation record ed. [address], [place], [address], 04/05/2023 15:52:26 04/05/2004/05/2023 XR, shoul maxim No observ ation record ed. [address], [place], [address], 04/05/2023 15:52:39 Result Notes None recorded. 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, [facility] [address], [place], [address] , [facility] 10:24:16 Problem Notes None recorded. Procedures Surgical History Date Name Laterality Status Provider Name and Address Organization Details Recorded Time Cataract Surgery completed Not Available [facility] 08/26/2022 23:06:17 cardiac catheterization completed Not Available [facility] 08/26/2022 23:06:17 colonoscopy completed Not Available [facility] 08/26/2022 23:06:17 dacryocystotomy completed Not Available [facility] 08/26/2022 23:06:17 Hysterectomy completed Not Available [facility] 08/26/2022 23:06:17 Cholecystectomy completed Not Available [facility] 08/26/2022 23:06:17 Imaging Results Imaging Date Name Status LastModified by Organization Details LastModified Time 06/23/2022 CT, abdomen + pelvis, w/ contrast completed [id number] [address] [address], [place], [address], 08/26/2022 23:11:14 06/15/2022 imaging/diagnostic result completed MIGRATION.[id number] [place] [address], [place], [address], 08/26/2022 23:11:14 06/15/2022 imaging/diagnostic result completed MIGRATION.[id number] [place] [address], [place], [address], 08/26/2022 23:11:14 07/31/2022 CT, abdomen + pelvis, w/ contrast completed [id number] 84128 [facility] [address], [place], [address], 08/26/2022 23:11:14 01/16/2021 electrocardiogram completed MIGRATION. [id number] [facility] [address], [place], [address], 08/26/2022 23:11:14 01/15/2021 electrocardiogram completed MIGRATION. 25733 [facility] , [address], [place], [address], 08/26/2022 23:11:14 04/14/2022 XR, lumbosacral spine, 2 or 3 view completed MIGRATION.[id number] 93217 [facility] (Imaging) [address] [facility], [place], [address], 08/26/2022 23:11:14 04/14/2022 XR, lumbosacral spine, 2 or 3 view completed [id number].[id number], [place], [address], 08/26/2022 23:11:14 04/02/2023 XR, wrist, 3 or more view completed [address], [address], 04/05/2023 10:20:44 04/02/2023 XR, hip, bilateral, 2 view completed [address], [address], 04/05/2023 10:22:37 04/02/2023 XR, femur, 2 or more view completed [address], [address], 04/05/2023 10:23:23 04/03/2023 CT, hip, w/o contrast completed [address], [address], 04/05/2023 10:24:12 04/03/2023 XR, chest, 2 view completed [address], [address], 04/05/2023 10:25:09 04/05/2023 stress echocardiogram completed [address], [address], 04/05/2023 15:52:26 04/05/2023 XR, shoulder completed [id number], [place], [address], 04/05/2023 15:52:39 Procedure Notes None recorded. Medical [...] Date Recorded Body mass index (BMI) Body mass index (BMI) Body height Body height Oxygen saturation Oxygen saturation in Arterial blood by Pulse oximetry Oxygen saturation Oxygen saturation in Arterial blood by Pulse oximetry Heart rate Heart rate Body temperature Body temperature Body weight Body weight Systolic blood pressure Diastolic blood pressure Systolic blood pressure Diastolic blood pressure Provider Name and Address Organization Details Last Updated DateTime 3 27.8 kg/m2 27.4 kg/m2 147.32 cm 147.32 cm 96 % 96 % 98 % 98 % 84 /min 113 /min 97.3 [degF] 97.3 [degF] 89701.7 9 g 88538.6 g 116 mm[Hg] 76 mm[Hg] 144 mm[Hg] 90 mm[Hg] Not Available [facility] 3 23:08:21 Date Recorded Body height Body mass index (BMI) Body weight Body temperature Heart rate Oxygen saturation Oxygen saturation in Arterial blood by Pulse oximetry Systolic blood pressure Diastolic blood pressure Provider Name and Address Organization Details Last Updated DateTime 3 147.32 cm 26.1 kg/m2 38380.0 5 g 98.7 [degF] 103 /min 98 % 98 % 130 mm[Hg] 80 mm[Hg] MARIELA Mckeon [place] [facility] 10:07:40 Social History Question Answer Notes LastModified by Organizat ion Details LastModified Time Tobacco Smoking Status Never Smoker Not Available [facility] 08/26/2022 23:06:07 What Is Your Level Of Alcohol Consumption? None [id number] Information not available 08/26/2022 In The 14 Days Before Symptom Onset, Have You Had Close Contact With A Laboratory-confirm ed COVID-19 While That Case Was Ill? No [id number] Information not available 08/26/2022 In The 14 Days Before Symptom Onset, Have You Had Close Contact With A Person Who Is Under Investigation For COVID-19 While That Person Was Ill? No [id number] Information not available 08/26/2022 Sex: Unknown Functional Status None recorded. Mental Status None recorded. Family History Relationship Description Onset Age of this Age Resolved Age Notes LastModified by Organization Details LastModified Time Father Calcificatio n of lung [id number] Not available 08/26/2022 23:06:23 Father Malignant tumor of lung [id number].[id number] Not available 08/26/2022 23:06:23 Mother Aneurysm [id number] Not available 08/26/2022 23:06:23 Medical History Condition [...] INSOMNIA N HIGH CHOLESTEROL / HYPERLIPIDEMIA N HYPERTHYROIDISM N EYE PROBLEMS N EATING DISORDER N EDEMA N CHRONIC PAIN SYNDROME N CONSTIPATION N CAROTID BLOCKAGE N BACK / NECK PROBLEMS N HAVE YOU BEEN HOSPITALIZED OR SEEN IN [facility] IN THE PAST YEAR ? 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 Chronic ly mphoid leukemia, disease 19072340 C91.10 F/u with oncologist /hematolog ist Health Concerns Section Related Observation LastModified by Organization Detai ls LastModified Time None Recorded Concern Status LastModified by Organization Details LastModified Time None Recorded Advance Directives Directive None Recorded Payers Encounter Date Sequence Insurance Name Policy Number Policy Lua Covered Member ID Lua Member ID Guarantor Name 10/14/2022 1 [employer] (MEDICARE REPLACEMENT PPO) [id number] Sandra Ford [id number] Sandra Ford Notes Date Note Type Note [...] vaginal discharge very slight. Georgette Campuzano MD [address] [place] [address], [facility] [address], [place], [address], [facility] 10/14/2022 10:45:32 OBGyn Episode No OBEpisode recorded.
--- OUTSIDE RECORDS SUMMARY | 2024-08-07 13:24 | XMS_ITS | Encounter Summary ---
Author Organization [facility] Address [address] [place] [address] Care Team Providers Care Recordak Operator Name Role Phone TeresaEliseo saravia Primary Care Provider Reason for Visit * Reason Onset Date Comments Labs Only 08/07/2024 Encounter Details Date Type Department Care Team (Late st Contact Info) Description 08/07/2024 Telephone [facility] Oncology and Hematology - Ck [address] [facility] [address] [place] [address] Nicholas Gibson MD [address] [facility] [address] [place] [address] Labs Only Social History Tobacco Use Types Packs/Day Years Used Date Smoking Tobacco: Never Alcohol Use Standard Drinks/Week Comments Yes 0 (1 standard drink = 0.6 oz pur e alcohol) rarely Comments No Sex and Gender Information Value Date Recorded Sex Assigned at Not on file Legal Sex Female 1:30 PM CDT Gender Identity Not on file Sexual Orientation Not on file documented as of this encounter Miscellaneous Notes * Telephone Encounter - Luanne Silver - 08/07/2024 10:10 AM CST Patients daughter called stating that she felt like her mom was just very weak and not really moving around like she was. She wanted to know if she could bring her in for labs. I let her know that she could bring her in for basic labs and see what's going on. She thinks maybe she is not drinking enough fluids and maybe that she is anemic. OPERATOR documented in this encounter Plan of Treatment Upcoming Encounters Date Type Department Care Team (Late st Contact Info) Description 08/23/2024 2:45 PM TOUR OPERATOR Office Visit [facility] Oncology and Hematology [facility] [address] [facility] [address] [place] [address] Nicholas Gibson MD [address] [facility] [address] [place] [address] Scheduled Orders Name Type Priority Associated Diagnoses Orde r Schedule BASIC METABOLIC PANEL Lab Routine CLL (chronic lymphocytic leukemia) (CMS/HCC) Expected: 08/07/2024, Expires: 08/07/2025 CBC WITH DIFFERENTIAL Lab Routine CLL (chronic lymphocytic leukemia) (CMS/HCC) Expected: 08/07/2024, Expires: 08/07/2025 documented as of this encounter Visit Diagnoses Diagnosis CLL (chronic lymphocytic leukemia) (CMS/HCC)- Primary Chronic lymphoid leukemia, without mention of having achieved remission documented in this encounter Care Teams Recordak Operator Relationship Specialty Start Date End Date Eliseo Waters DO [address] [facility] [address] [place] [address] PCP - General Internal Medicine 03/24/24 documented as of this encounter
--- OUTSIDE RECORDS SUMMARY | 2024-08-07 13:24 | XMS_ITS | Continuity of Care Document ---
Author Organization [facility] Address [address] [place] [address] [place] [address] Phone Care Team Providers Care Kindergartners Helper Name Role Phone Misha Perdomo Unavailable Unavailable [...] Copied on Encounter Office/outpat ient Visit, Est [facility], [address] [place] [address] [address], [place], [place], [id number], tel:[phone] [facility] No Information Sep-0 9-201 0 Conor Cabral. [address] , [address], [place], [address], [place]. tel:[phone] [facility], [address], [place], [place], [address], [place] tel:[phone] [facility] No Information Sep-1 0-200 9 Conor Cabral. [address] , [address], [place], [address], [place]. tel:[phone] [facility] Eye [facility], [address], [place], [place], [address], [place] tel:[phone] [facility] No Information 3200 8 Conor [address]ral. [address] , [address], [place], [address], [place]. tel:[phone] [facility] Eye [facility], [address], [place], [place], [address], [place] tel:[phone] [facility] No Information 7 Conor Cabral. [address] [facility] , [address], [place], [place], [facility], [place]. tel:[phone] [facility] Eye [facility], [address], [place], [place], [address], [place] tel:[phone] [facility] No Information 1200 7 Conor Cabral. [address], [address], [place], [facility], [place]. tel:[phone] [facility] Eye [facility], [address], [place], [place], [address], [place] tel:[phone] [facility] No Information 0 7 Conor Cabral. [address], [address], [place], [place], [facility], [place]. tel:[phone] Office/outpat ient Visit, Est [facility] Eye [facility], [address] [place] [address] [address], [place], [place], [address], [place] tel:[phone] [facility] No Information 7 [address]. [address] , [address], [place], [place], [facility], [place]. tel:[phone] Referring Provider: Misha Flores, [facility] [address], [place], [address]. tel:[phone] Family History Family Member Type Diagnosis Age At Onset No Information Payers Payer name Insurance type Covered alliance party ID Authoriza tion(s) [place] [id number] Social History Type Description Quantity Date Captured [...]
--- OUTSIDE RECORDS SUMMARY | 2024-08-07 13:24 | XMS_ITS | Clinical Summary ---
Author Organization Unknown Care Team Providers Care Geographic Information Systems Analyst Name Role Phone KENNETH CHANNEL PROCESS PLANT OPERATOR, VALERIO Unavailable Unavailable GREGORIA CLOTH NEUTRALIZER, SNEHA Un available Unavailable CADE PHYSICAL THERAPIST, CAMILLE Unavailable Unavailable DEBBIE MANAGER NC, TINY Unavail able Unavailable RAQUEL REGISTERED NURSE TRANS ROUTER, RUSS Mera vailable Unavailable NGUYEN ROCA COUNSELOR, [...] URINARY (TRACT) INFECTIONS Active 06-28 00:00: 00 CARE HOME (CURRENT) USE OF ANTICOAGULAN TS Active 06-28 00:00: 00 OTHER CARE HOME (CURRENT) DRUG THERAPY Active 06-28 00:00: 00 [...] 300 mg tablet 07-18 00:00: 00 Yes [id number] HELP WITH SIDE EFFECTS OF BRUKINSA 1 tablet ONCE DAILY 1 tablet ONCE DAILY (route: oral) Med Classific ation: Gout and Hyperuric emia Therapy Brukinsa 80 mg capsule 07-18 00:00: 00 Yes [id number] CANCER 2 capsule TWICE DAILY 2 capsule TWICE DAILY (route: oral) Med Classific ation: Antineopl astics calcium 500 mg (as calcium carbonate 1,250 mg) tablet 07-18 00:00: 00 Yes [id number] SUPPLEMENT 1 tablet ONCE DAILY 1 tablet ONCE DAILY (route: oral) Med Classific ation: Electroly te Balance-N utritiona l Products Dulcolax (bisacodyl) 5 mg tablet,alessio yed release 07-18 00:00: 00 Yes [id number] CONSTIPATIO N 1 tablet ONCE DAILY 1 tablet ONCE DAILY (route: oral) Med Classific ation: Gastroint estinal Therapy Agents Eliquis 2.5 mg tablet 07-18 00:00: 00 Yes [id number] PREVENT CLOTS 1 tablet TWICE DAILY 1 tablet TWICE DAILY (route: oral) Med Classific ation: Hematolog ical Agents hydrocodone 10 mg-acetamin ophen 325 mg tablet 07-18 00:00: 00 Yes [id number] PAIN 1 tablet 3 TIMES DAILY 1 tablet 3 TIMES DAILY (route: oral) Med Classific ation: Analgesic , Anti-infl ammatory or Antipyret ic metoprolol tartrate 25 mg tablet 07-18 00:00: 00 Yes [id number] HYPERTENSIO N 1 tablet TWICE DAILY 1 tablet TWICE DAILY (route: oral) Med Classific ation: Cardiovas cular Therapy Agents Miralax 17 gram/dose oral powder 07-18 00:00: 00 Yes [id number] CONSTIPATIO N Per instruc tions ONCE DAILY Per instructio ns ONCE DAILY (route: oral) Med Classific ation: Gastroint estinal Therapy Agents Vitamin D3 10 mcg (400 unit) tablet 07-18 00:00: 00 Yes [id number] SUPPLEMENT 1 tablet ONCE DAILY 1 tablet ONCE DAILY (route: oral) Med Classific ation: Electroly te Balance-N utritiona l Products acetaminoph en 325 mg capsule 07-28 00:00: 00 Yes [id number] PAIN 2 capsule EVERY 6 HOURS 2 [...] ON THE CERTIFIED CARE PLAN: VALERIO COOPER CHANNEL PROCESS PLANT OPERATOR] Future Scheduled Test THE CER TIFYING PHYSICIAN, [...] WILL BE ESTABLISHED THAT MEETS ALL PATIENT'S SHELTER NEEDS AND COUNTER SIGNED BY PHYSICIAN. Progress Notes Progress Notes <paragraph>[Visit Date: 2024 by RUSS GARCÍA REGISTERED NURSE TRANS ROUTER]:</paragraph><paragraph>PTNT BEING SEEN BY SN FOR CLL. SN [...] BACK. REPORTED TO [facility] WITH VALERIO COOPER, CHANNEL PROCESS PLANT OPERATOR WITH NNO RECEIVED. SN INSTRUCTED PTNT ON NONPHARMACOLOGICAL PAIN MGMT: HEAT/COLD THERAPY, RELAXATION, GUIDED IMAGERY, ETC. PTNT APT 08/13 BONE DENSITY SCAN PTNT STABLE AT SN DEPARTURE FROM HOME. PTNT/CG VERBALIZED UNDERSTANDING OF ALL EDUCATION PROVIDED. PTNT/CG DENY ADDITIONAL QUESTIONS/CONCERNS AND VERBALIZE SATISFACTION WITH CARE AT END OF VISIT.</paragraph> Encounters Start Date/Time End Date/Time Encounter Type Admission Type Attending [facility] Care Department Encounter ID Discharge Date Discharge Status Discharge Condition Discharge Reason Percent Goals Met 2024-07-19 00:00:00 2024-09-16 00:00:00 Outpatient NEW ADMISSION RUSS GARCÍA [facility] [id number] 71.43
--- OUTSIDE RECORDS SUMMARY | 2024-08-07 13:24 | XMS_ITS | Continuity of Care Document ---
Author Name Auto Generated, Auto Generated Organization [facility] Support Name Relationship Address Phone Nara Hogan Daughter Unknown Unavailable LoganRamon Son Unknown Unavailable Kemi Ford Financial Responsible Democrat [address] [place] [address] Kemi Ford Self [address] [place] [address] Summary Purpose Consult/Referral Allergies, Adverse Reactions, Alerts Type Description/Agent Code Date Allergy Active Date Allergy Inactivated Date of Last Reaction Adverse Reactions Severity Status Comments Source of Information FDB Medic ation Ingre dient tetracycline Active Albertina ent History Medications No Known Medications Conditions/Problems Problem/Diagnosis Awareness of Diagnosis Code (ICD-10) Onset Date (Start Date) Resolution Date (End Date) Status Source Comments CHRONIC LYMPHOCYTIC LEUKEMIA OF B-CELL TYPE NOT HAVING ACHIEVED REMISSION C91.10 04/09/20 Parveen Lowry MD Ronald MONITORING MANAGER (CURRENT) USE OF ASPIRIN Z79.82 04/09/20 Parveen Lowry MD Ronald 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 04/09/20 Parveen Lowry MD Ronald 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 04/09/20 Parveen Lowry MD Ronald ANEMIA, UNSPECIFIED D64.9 04/09/20 Parveen Lowry MD Ronald 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 04/09/20 Parveen Lowry MD Ronald 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 04/09/20 Parveen Lowry MD Ronald MONITORING MANAGER (CURRENT) USE OF ANTICOAGULANTS Z79.01 04/04/20 Parveen Lowry MD Ronald UNSPECIFIED ATRIAL FIBRILLATION I48.91 04/04/20 Parveen Lowry MD Ronald PAIN IN LEFT SHOULDER M25.512 04/02/20 Parveen Lowry MD Ronald EFFUSION, LEFT WRIST M25.432 0 23 Active MD Essence Ronald FALL ON SAME LEVEL, UNSPECIFIED, SUBSEQUENT ENCOUNTER W18.30XD 04/02/20 23 Active MD Essence Ronald NONDISPLACED FRACTURE OF GREATER TROCHANTER OF LEFT FEMUR, SUBSEQUENT ENCOUNTER FOR CLOSED FRACTURE WITH ROUTINE HEALING S72.115D 04/02/20 23 Parveen Lowry MD Ronald Procedures No Known Procedures
--- OUTSIDE RECORDS SUMMARY | 2024-08-07 13:24 | XMS_ITS | Referral Summary ---
Author Organization [facility] [place] [address] Address [address] [place] [address] Care Team Providers Care Environmental Property Assessor Name Role Phone Eliseo Waters DO Primary Care Provider [phone]- [phone] Encounters Date Type Department Care Team Description 07/31/[address] [facility] Medical [facility] Cardiology [address] [place] [address] Aldo Morelos MD Med Refill 07/17/2024 8:00 AM LINUX ADMIN ENGINEER - 07/17/2024 11:59 PM LINUX ADMIN ENGINEER [place] [address] Discharge Disposition: Discharge to home or self care from Last 3 Months Allergies No known active allergies Medications ferrous sulfate (FeroSuL) 325 mg (65 mg [...] MOUTH TWICE DAILY 180 tablet 025 Active Eliquis 2.5 mg tablet Take 1 tablet (2.5 mg total) by mouth 2 (two) times a day 180 tablet 3 025 Active Eliquis 2.5 mg tablet TAKE 1 TABLET(2.5 MG) BY MOUTH TWICE DAILY 60 tablet 11 023 07/31 Discontinued( Reorder) metoprolol tartrate (LOPRESSOR) 25 mg immediate release [...] on file Legal Sex Female 11:42 PM LINUX ADMIN ENGINEER Gender Identity Not on file Sexual Orientation Not on file Last Filed Vital Signs Vital Sign Reading Time Taken Comments Blood Pressure 124/64 04/12/2024 9:54 AM CDT Pulse 70 04/12/2024 9:54 AM CDT Temperature 36.7 C (98 F) 03/13/2024 3:28 PM CDT Respiratory Rate 16 [...] SURGICAL PATHOLOGY Routine 07/17/2024 9: 46 AM LINUX ADMIN ENGINEER from Last 3 Months Results * Surgical pathology (07/17/2024 9:46 AM LINUX ADMIN ENGINEER) Bone - Biopsy / Curettings 07/17/2024 9:46 AM LINUX ADMIN ENGINEER 07/18/2024 9:46 AM LINUX ADMIN ENGINEER Narrative 07/19/2024 10:43 PM LINUX ADMIN ENGINEER EPIC results best viewed via link to PDF [facility] Department of Pathology [address] [place] [id number] Note to Patients: This report may [...] questions and explain the details. Final Report with Addendum Patient Name: SANDRA FORD Address: [address] [place] [address] Gender: F : 1935 (Age: 88) Service: Location: N : [id number] [facility] #: [id number] Patient Type: SPECIMEN Taken: 07/17/2024 Received: 07/18/2024 Accessioned: 07/18/2024 Reported: 07/19/2024 Physician(s):Ke Velazquez M.D. Diagnosis: A. T8 vertebral body, biopsy: - Fragment of bone with hematopoietic elements and crushed lymphocytic aggregates (see microscopic description) B. T10 vertebral body, biopsy: - Atypical lymphoid infiltrate - see microscopic description Gael Coughlin M.D. Report Electronically Reviewed and Signed Out By Gael Coughlin M.D. 07/19/2024 22:43:28 Procedure/Addenda: Addendum Addendum Comment The external consult report from [facility] ([id number]) has been finalized and is attached. For the sourcing consultant s comment, please see scanned image of report or the report can be viewed in the Electronic Medical Record of the patient. If access to the EMR is not available, please call pathology for a hard copy of the report ([phone]). 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 See comment. Gael Coughlin M.D.Report Electronically Reviewed and Signed Out By Gael Coughlin M.D. 07/27/2024 13:22:07 Specimen(s) Received: A: T8 vertebral body bx [...] submitted in two formalin containers labeled SANDRA OFRD . A. The first container is labeled T8 vertebral body . It is 1 core of riojas bone measuring 7 mm. The specimen is decalcified.. All in A. B. The second container is labeled T10 vertebral body . It is 1 core of riojas tissue measuring 8 mm. The specimen is decalcified.. All in B. T.A. Gera Hernandez., Sahil/Trice Harvey M.D. REPORT IMAGES AND SCANNED DOCUMENTS, IF INCLUDED, ONLY VIEWABLE IN PDF VERSION OF REPORT The performance characteristics of some immunohistochemical stains, fluorescence in-situ hybridization tests and immunophenotyping by flow cytometry cited in this report (if any) were determined by the Surgical Pathology Department at [facility] as part of an ongoing quality control projectionist program and in compliance with federally mandated regulations drawn from the Clinical Laboratory Improvement Act of 1988 (CLIA '88). Some of these tests rely on the use of analyte specific reagents and are subject to specific labeling requirements by the US Food and Drug Administration. Such diagnostic tests may only be performed in a facility that is certified by the Department of Health and Human Services as a high complexity laboratory under CLIA '88. The FDA has determined that such clearance or approval is not necessary. This test is used for clinical purposes. It should not be regarded as investigational or for research. Nevertheless, federal rules concerning the medical use of analyte specific reagents require that the following disclaimer be attached to the report: This test was developed and its performance characteristics determined by the Surgical Pathology Department [facility]. It has not been cleared or approved by the U. S. Food and Drug Administration. Note for decalcified specimens: This assay has not been validated on decalcified tissues. Results should be interpreted with caution given the possibility of false negativity on decalcified specimens Nichole Velazquez MD LAB PATHOLOGY ORDERABLES F inal Result from Last 3 Months Insurance A[employer] MEDICARE Care Teams Environmental Property Assessor Relationship Specialty Start Date End Date Eliseo Waters DO PCP - General Internal Medicine 09/16/23
--- OUTSIDE RECORDS SUMMARY | 2024-08-07 13:24 | XMS_ITS | Clinical Summary ---
Author Organization [facility] Address [address] [place] [address] Care Team Providers Care Media Consultant Outside Sales Name Role Phone JudiEliseo vann Sudarshan Primary Care Provider Allergies Active Allergy Reactions [...] times daily. 120 Capsule 2 5 Active Active Problems Problem Noted Date Diagnosed Date CLL (chronic lymphocytic leukemia) 03/24/2018 Encounters Date Type Department Care Team Description 08/07/2024 Telephone [facility] Oncology and Hematology - Ck [address] [place] [address] Nicholas Gibson MD Labs Only 08/03/2024 Abstract [facility] Oncology and Hematology - [address] [place] [address] Nicholas Gibson MD 07/25/2024 Orders Only [facility] Oncology and Hematology - Ck [address] [place] [address] Nicholas Gibson MD 07/25/2024 Telephone [facility] Oncology and Hematology - [address] [place] [address] Nicholas Gibson MD Medication Review 07/20/2024 External Device Data STL ABSTRACTION Provider, Abstract 07/18/2024 Specialty Pharmacy [facility] [address] [place] [phone] Luanne Pantoja, PHARMACIST 07/14/2024 Orders Only [facility] Oncology and Hematology - [address] [place] [address] Nicholas Gibson MD 07/11/2024 Telephone [facility] Oncology and Hematology - C[address] [place] [address] Nicholas Gibson MD Medication Review 07/06/2024 Refill [facility] Oncology and Hematology - Ck [address] [place] [address] Nicholas Gibson MD 06/13/2024 9:45 AM FARM MANAGEMENT AGENT Office Visit [facility] Oncology and Hematology - Ck [address] [place] [phone] Nicholas Gibson MD CLL (chronic lymphocytic leukemia) (CMS/HCC) (Primary Dx) 06/13/2024 Orders Only [facility] Oncology and Hematology - Ck [address] [place] [address] Nicholas Gibson MD 06/13/2024 Telephone [facility] Oncology and Hematology - [address] [place] [address] Nicholas Gibson MD Medication Review 06/12/2024 Orders Only [facility] Oncology and Hematology - C[address] [place] [address] Nicholas Gibson MD 06/09/2024 Telephone [facility] Oncology and Hematology - [address] [place] [address] Nicholas Gibson MD Lab Results 06/08/2024 Specialty Pharmacy [facility] [address] [place] [phone] Sarah Garcia, PHARMACIST Specialty Pharmacy Refill Coordination 05/24/2024 Telephone [facility] Oncology and Hematology [facility] [address] [place] [address] Nicholas Gibson MD Medication Review 05/16/2024 Specialty Pharmacy [facility] [address] [place] [phone] Ivet Malagon, PHARMACIST Specialty Pharmacy Clinical Assessment 05/16/2024 Specialty Pharmacy [facility] [address] [place] [phone] Ivet Malagon, PHARMACIST Specialty Pharmacy Refill Coordination 05/16/2024 Specialty Pharmacy [facility] [address] [place] [phone] Ivet Malagon, PHARMACIST Specialty Pharmacy Prior Auth Coordination 05/15/2024 11:30 AM FARM MANAGEMENT AGENT Office Visit [facility] Oncology and Hematology [facility] [address] [place] [address] Nicholas Gibson MD CLL (chronic lymphocytic leukemia) (CMS/HCC) (Primary Dx) from Last 3 Months Family History Medical [...] Comments Blood Pressure 134/79 06/13/2024 9:49 AM FARM MANAGEMENT AGENT Pulse 77 06/13/2024 9:49 AM FARM MANAGEMENT AGENT Temperature 36.5 C (97.7 F) 06/13/2024 9:49 AM FARM MANAGEMENT AGENT Respiratory Rate 18 06/13/2024 9:49 AM FARM MANAGEMENT AGENT Oxygen Saturation 98% 06/13/2024 9:49 AM FARM MANAGEMENT AGENT Inhaled Oxygen Concentration - - Weight 49.9 kg (110 lb) 06/13/2024 9:49 AM FARM MANAGEMENT AGENT Height 147.3 cm (4' 10 ) 10/06/2023 12:32 PM CDT Body Mass Index 22.99 10/06/2023 12:32 PM CDT Plan of Treatment Upcoming Encounters Date Type Department Care Team (Late st Contact Info) Description 08/23/2024 2:45 PM FARM MANAGEMENT AGENT Office Visit [facility] Oncology and Hematology - [address] [facility] [address] [place] [address] Nicholas Gibson MD [address] [facility] [address] [place] [address] Health Maintenance Due Date Last Done Comments DTAP/TDAP/TD VACCINES (1 - Tdap) 09/16/1954 PNEUMOCOCCAL VACCINE 65+ YEARS (1 of 2 - PCV) 09/16/18 55 ZOSTER VACCINE (1 of 2) 09/16/1954 OSTEOPOROSIS SCREENING 09/16/2000 RSV VACCINE (60+ or ) (1 - 1-dose 75+ series) 09/16/2010 INFLUENZA VACCINE (#1) 2024 [place] Prev entative Visit/Annual Wellness Visit 06/28/2024 Procedures Procedure Name Priority Date/Time Associated Diagnosis Comments CBC WITH AUTODIFFERENTIAL Routine 2024 2:09 PM FARM MANAGEMENT AGENT BASIC METABOLIC PANEL Routine 07/14/2024 3:16 PM FARM MANAGEMENT AGENT CBC WITH DIFFERENTIAL Routine 07/14/2024 12:58 PM FARM MANAGEMENT AGENT BASIC METABOLIC PANEL Routine 06/09/2024 12:35 PM FARM MANAGEMENT AGENT BASIC METABOLIC PANEL Routine 06/09/2024 11:14 AM FARM MANAGEMENT AGENT from Last 3 Months Results * CBC WITH AUTODIFFERENTIAL (07/20/2024 2:09 PM FARM MANAGEMENT AGENT) Blood us Nicholas Gibson MD HEMATOLOGY ORDERABLES Final Res ult * BASIC METABOLIC PANEL (07/14/2024 3:16 PM FARM MANAGEMENT AGENT) Only the most recent of3 resultswithin the time period is included. Blood us Nicholas Gibson MD CHEMISTRY ORDERABLES Final Resu lt * CBC WITH DIFFERENTIAL (07/14/2024 12:58 PM FARM MANAGEMENT AGENT) Blood us Nicholas Gibson MD HEMATOLOGY ORDERABLES Final Res ult from Last 3 Months Insurance [facility] AETNA PPO MCR RX AETNA Medicare Part D Care Teams Media Consultant Outside Sales Relationship Specialty Start Date End Date Eliseo Waters DO [address] [facility] [address] [place] [address] PCP - General Internal Medicine 03/24/24
--- OUTSIDE RECORDS SUMMARY | 2024-08-07 13:24 | XMS_ITS | Clinical Summary ---
Author Organization [facility] [address] Address [address] [place] [address] Care Team Providers Care Ice Cream Dipper Name Role Phone Eliseo Waters DO Primary Care Provider [phone] Allergies No known active allergies Medications ferrous [...] Type Department Care Team Description 07/31/2024 Telephone [facility] Medical Group Cardiology [address] [place] [address] Aldo Morelos MD Med Refill 07/17/2024 8:00 AM ENVIRONMENTAL COMPLIANCE OFFICER - 07/17/2024 11:59 PM ENVIRONMENTAL COMPLIANCE OFFICER Hospital Encounter [address] [address] Discharge Disposition: Discharge to home or self [...] on file Legal Sex Female 11:42 PM ENVIRONMENTAL COMPLIANCE OFFICER Gender Identity Not on file Sexual Orientation [...] 09/16/1954 Well Visit 65+ 09/16/2000 Covid-19 Vaccine (2023-2 5 season) 2024 03/15/2023, 03/10/2022, 09/25/2021, Additional history exists Influenza Vaccine (#1) 2024 , 03/10/2022, 02/11/2021, Additional history exists DTaP/Tdap/Td Vaccine (2 - Td or Tdap) 05/29/2025 05/29/2015 Pneumococcal vaccine 65+ Completed 023, 11/01/2017, 03/23/2015 Procedures Procedure Name Priority Date/Time Associated Diagnosis Comments SURGICAL PATHOLOGY Routine 07/17/2024 9: 46 AM ENVIRONMENTAL COMPLIANCE OFFICER from Last 3 Months Results * Surgical pathology (07/17/2024 9:46 AM ENVIRONMENTAL COMPLIANCE OFFICER) Bone - Biopsy / Curettings 07/17/2024 9:46 AM ENVIRONMENTAL COMPLIANCE OFFICER 07/18/2024 9:46 AM ENVIRONMENTAL COMPLIANCE OFFICER Narrative 07/19/2024 10:43 PM ENVIRONMENTAL COMPLIANCE OFFICER [facility] results best viewed via link to PDF [facility] Department of Pathology [address] [place] [address] Note to Patients: This report may contain [...] with Addendum Patient Name: SANDRA FORD Address: [address] [place] [address] Gender: F : 1935 (Age: 88) Service: Location: [facility] #: [id number] Patient Type: SPECIMEN Taken: 07/17/2024 Received: 07/18/2024 [...] Addendum Comment The external consult report from [facility] ([id number]) has been finalized and is attached. For the philatelic consultant s comment, please see scanned image of report or the report can be viewed in the Electronic Medical Record of the patient. If access to the EMR is not available, please call pathology for a hard copy of the report ([phone]). 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 See [...] formalin containers labeled SANDRA FORD . A. The first container is labeled T8 vertebral body . It is 1 core of riojas bone measuring 7 mm. The specimen is decalcified.. All in A. B. The second container is labeled T10 vertebral body . It is 1 core of riojas tissue measuring 8 mm. The specimen is decalcified.. All in B. T.A. Gera Hernandez., P.A./Trice Harvey M.D. REPORT IMAGES AND SCANNED DOCUMENTS, IF INCLUDED, ONLY VIEWABLE IN PDF VERSION OF REPORT The performance characteristics of some immunohistochemical stains, fluorescence in-situ hybridization tests and immunophenotyping by flow cytometry cited in this report (if any) were determined by the Surgical Pathology Department at [facility] as part of an ongoing quality improvement consultant program and in compliance with federally mandated [...] characteristics determined by the Surgical Pathology Department [facility]. It has not been cleared or approved by the U. S. Food and Drug Administration. Note for decalcified specimens: This assay has not been validated on decalcified tissues. Results should be interpreted with caution given the possibility of false negativity on decalcified specimens Nichole Velazquez MD LAB PATHOLOGY ORDERABLES F inal Result from Last 3 Months Insurance T MEDICARE Care Teams Ice Cream Dipper Relationship Specialty Start Date End Date Eliseo Watesr DO PCP - General Internal Medicine 09/16/23
[2024-08-07 13:28] LABS: Eosinophils Absolute Auto 0.2 K/mm3 (0-0.3); Eosinophils Percent Auto 0.1 % (0-4.4); Hematocrit 35.7 % (37.0-47.0); Hemoglobin 10.3 g/dL (12.0-15.0); Immature Granulocyte Absolute 0.23 K/mm3 (0.00-0.031); Immature Granulocyte Percent A 0.1 % (0-0.5); Lymphocytes Percent Auto 96.3 % (18.3-44.2); Mean Corpuscular HGB Conc 28.9 g/dl (32-36); Mean Corpuscular Volume 100.6 fl (80-100); Mean Platelet Volume 9.6 fl (7.4-10.4); Monocytes Absolute Auto 0.5 K/mm3 (0.1-0.6); Monocytes Percent Auto 0.3 % (2.6-8.5); Neutrophils Absolute Auto 5.5 K/mm3 (1.3-6.7); Neutrophils Percent Auto 3.2 % (45.5-73.1); Platelet Count Result 214 k/mm3 (150-375); Red Blood Count 3.55 M/mm3 (4.2-5.4); Red Cell Distribution Width 19.1 % (11.5-14.5)
[2024-08-07 13:29] LABS: Blood Urea Nitrogen 12 mg/dL (8-26); Carbon Dioxide 25 mmol/L (22-30); Chloride 102 mmol/L (98-109); Estimated Glomerular Filt Rate 52; Glucose 125 mg/dL (70-105); Ionized Calcium (POC) 1.16 mmol/L (1.11-1.31); Potassium 3.5 mmol/L (3.5-4.9); Sodium 140 mmol/L (138-146)
[2024-08-07 13:29] LABS: White Blood Count 170.7 K/mm3 (4.5-10.0)
[2024-08-07 13:30] LABS: Platelet Estimate Adequate (Adequate); Schistocytes None Seen
[2024-08-07 13:31] LABS: Anisocytosis 2+; Atypical Lymphocytes Present; Hypochromasia 1+; Ovalocytes 1+
== END 2024-08-07 13:12 | disposition home or self-care (01) ==
PROVIDERS: PCP Internal Medicine; Visit Provider Internal Medicine Hematology & Oncology
DX: C91.10 Chronic lymphocytic leukemia of B-cell type not having achieved remission (principal)
CPT/HCPCS: 36415; 80047; 85025

== ENCOUNTER 2024-08-16 13:13 | Outpatient (CLI) | payer MEDICARE, SELFPAY ==
--- NOTE | ~2024-08-16 | DEXA_ITS ---
Bone Density Report Name: SANDRA TREVINO Age: 88 Sex: Female Ethnicity: White Date of : 1935 Indication: postmenopausal; screening for osteoporosis; parental hip fracture; height loss; prior fracture; cancer; hysterectomy; Referring Provider: VALERIO COOPER Study: Bone densitometry was performed. Exam Date: August 16, 2024 Accession number: [id number] Bone Density: Region BMD T-score Z-score Classification AP Spine(L1-L4) 0.785 -2.4 0.5 Osteopenia Femoral Neck (Left) 0.459 -3.5 -1.0 Osteoporosis Total Hip (Left) 0.584 -2.9 -0.6 Osteoporosis Femoral Neck (Right) 0.485 -3.3 -0.8 Osteoporosis Total Hip (Right) 0.615 -2.7 -0.3 Osteoporosis Total Hip Mean 0.599 -2.8 -0.5 Osteoporosis World Health Organization criteria for BMD impression classify patients as: Normal (T-score at or above -1.0), Osteopenia (T-score between -1.0 and -2.5), or Osteoporosis (T-score at or below -2.5). 10-year Fracture Risk: FRAX not reported because: Some T-score for Spine Total or Hip Total or Femoral Neck at or below -2.5 Prior hip or vertebral fracture Clinical Information Provided by Patient: Have had a previous hip or vertebral fracture Has had a low trauma fracture Parent has had a hip fracture Has used the following medications: Vitamin D, Calcium Has the following medical conditions: Cancer, Hysterectomy Patient maximum height was 58.0 No regular weight bearing exercise Onset of menses at age 12 Number of children 3 Impression: The patient has established osteoporosis, based on the Left Femoral Neck T-score and the existence of a prior fracture. The patient has risk factors, including: parental hip fracture, previous fracture. Discussion: HIGH RISK OF FRACTURE. BONE DENSITY IS UNDESIRABLY LOW AT ONE OR MORE SKELETAL SITES, CONSISTENT WITH POSTMENOPAUSAL OSTEOPOROSIS. This patient's lowest T-score, in a patient who has previously fractured, meets the World Health Organization's (WHO) criteria for severe osteoporosis. In untreated patients, the risk of osteoporotic fracture increases approximately two-fold for each 1.0 SD decrease in T-score. Low bone density is not the only risk factor for fracture; also consider factors such as patient's age, frailty or poor health, risk of falling, risk of injury, previous osteoporotic fracture, family history of osteoporosis, cigarette smoking, low body weight, etc. Not everyone with low bone mineral density has osteoporosis; osteomalacia and other metabolic bone disorders should also be considered. Patients who have osteoporosis should be evaluated for specific diseases and conditions (secondary causes) that may cause or contribute to bone loss. The [place] Association of Clinical Endocrinologists (AACE) and National Osteoporosis Foundation (NOF) recommend pharmacologic intervention for all postmenopausal women with a previous hip or vertebral fracture and a T-score in this range. The patient should follow a healthful lifestyle (good nutrition with adequate calcium and vitamin D, and appropriate weight-bearing exercise). Follow-Up: Consider a repeat BMD and Vertebral Fracture Assessment (VFA) exam in 2 years or sooner if medically necessary, to reassess this patient's status. Reported by: FEDERICO on 08/16/2024 1:46:00 PM. Reviewed, dictated and finalized at location [facility]
--- OUTSIDE RECORDS SUMMARY | 2024-08-16 13:19 | XMS_ITS | Continuity of Care Document ---
Author Organization [facility] Address [address] [place] [address] [place] [address] Phone Care Team Providers Care Animal Trainer Name Role Phone Misha Perdomo Unavailable Unavailable [...] Copied on Encounter Office/outpat ient Visit, Est [facility], [address] [place] [address] [address], [place], [place], [id number], tel:[phone] [facility] No Information Sep-0 9-201 0 Conor Cabral. [address] , [address], [place], [address], [place]. tel:[phone] [facility], [address], [place], [place], [id number], [place] tel:[phone] [facility] No Information Sep-1 0-200 9 Conor Cabral. [address] , [address], [place], [address], [place]. tel:[phone] [facility], [address], [place], [place], [id number], [place] tel:[phone] [facility] No Information 3[address] Conor Cabral. [address] , [address], [place], [address], [place]. tel:[phone] [facility], [address], [place], [place], [id number], [place] tel:[phone] [facility] No Information 7 Conor Cabral. [address] [facility] , [address], [place], [place], [facility], [place]. tel:[phone] [facility], [address], [place], [place], [id number], [place] tel:[phone] [facility] No Information 1200 7 Conor Cabral. [address], [place], [place], [facility], [place]. tel:[phone] [facility], [address], [place], [place], [id number], [place] tel:[phone] [facility] No Information 0 7 Conor Cabral. [address], [address], [place], [place], [facility], [place]. tel:[phone] Office/outpat ient Visit, Est [facility], [id number] [place] [address] [address], [place], [place], [id number], [place] tel:[phone] [facility] No Information 7 Conor Cabral. [address] , [address], [place], [place], [facility], [place]. tel:[phone] Referring Provider: Misha Flores, [facility] [address], [place], [address]. tel:[phone] Family History Family Member Type Diagnosis Age At Onset No Information Payers Payer name Insurance type Covered constitution party ID Authoriza tion(s) [place] [id number] Social History Type Description Quantity Date Captured [...]
--- OUTSIDE RECORDS SUMMARY | 2024-08-16 13:19 | XMS_ITS | Referral Summary ---
Author Organization [facility] [place] [address] Address [address] [place] [address] Care Team Providers Care Commercial Roofer Name Role Phone Eliseo Waters DO Primary Care Provider +1- [phone] Encounters Date Type Department Care Team Description 07/31/2024 Telephone [facility] Cardiology [address] [place] [address] Aldo Morelos MD Med Refill 07/17/2024 8:00 AM GLOVE CLEANER - 07/17/2024 11:59 PM GLOVE CLEANER [place] [address] Discharge Disposition: Discharge to home or self care from Last 3 Months Allergies No known active allergies Medications ferrous sulfate (FeroSuL) 325 mg (65 mg of elemental iron) tablet 1 tablet DAILY (route: oral) 023 Active ascorbic acid (VITAMIN C) 100 mg tablet Vitamin C Active multivit-min- iron-FA-vit K-lut (Multivitamin Women 50 Plus) 8 mg iron-400 mcg-50 mcg tablet Take 1 tablet by mouth daily Active cyanocobalami n (Vitamin B-12) 1,000 mcg sublingual tablet Take 1 tablet (1,000 mcg total) by mouth daily Active aspirin 81 mg enteric coated tablet Take 1 tablet (81 mg total) by mouth daily Act debby cholecalcifer ol (Delta D3) 400 unit capsule 08/08/2014Vitamin d, po solid 400 unit TabletPOdailyCurrent Medication 015 Active folic acid (FOLVITE) 800 mcg tablet 08/08/2014Folic acid, po solid 0.8 mg TabletPOdailyCurrent Medication 015 Active HYDROcodone-a cetaminophen (NORCO) 5-325 mg per tablet Take by mouth every 6 (six) hours as needed Act debby lisinopriL (PRINIVIL,ZES TRIL) 5 mg tablet 08/08/2014Lisinopril, po solid 5 mg TabletPOdailyCurrent Medication 015 Active oxyBUTYnin XL (DITROPAN-XL) 5 mg 24 hr tablet Take 1 [...] MOUTH TWICE DAILY 60 tablet 11 023 2024 Disconti arnoldo(Issa queen) Active Problems Problem Noted Date Diagnosed Date [...] on file Legal Sex Female 11:42 PM GLOVE CLEANER Gender Identity Not on file Sexual Orientation [...] SURGICAL PATHOLOGY Routine 07/17/2024 9: 46 AM GLOVE CLEANER from Last 3 Months Results * Surgical pathology (07/17/2024 9:46 AM GLOVE CLEANER) Bone - Biopsy / Curettings 07/17/2024 9:46 AM GLOVE CLEANER 07/18/2024 9:46 AM GLOVE CLEANER Narrative 07/19/2024 10:43 PM GLOVE CLEANER EPIC results best viewed via link to PDF [facility] Department of Pathology [address] [place] [id number] Note to Patients: This report may [...] with Addendum Patient Name: SANDRA FORD Address: [address] [place] [address] Gender: F : 1935 (Age: 88) Service: Location: [facility] : [id number] [facility] #: [id number] Patient Type: SPECIMEN Taken: 07/17/2024 Received: 07/18/2024 [...] Comment The external consult report from [facility] ([id number]) has been finalized and is attached. For the treasury consultant s comment, please see scanned image of report or the report can be viewed in the Electronic Medical Record of the patient. If access to the EMR is not available, please call pathology for a hard copy of the report ([phone]). 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 See [...] specimen is decalcified.. All in [facility] Hernandez[facility]Sd[facility] P.A./Trice Harvey M.D. REPORT IMAGES AND SCANNED DOCUMENTS, IF INCLUDED, ONLY VIEWABLE IN PDF VERSION OF REPORT The performance characteristics of some immunohistochemical stains, fluorescence in-situ hybridization tests and immunophenotyping by flow cytometry cited in this report (if any) were determined by the Surgical Pathology Department at [facility] as part of an ongoing manufacturing quality engineer program and in compliance with federally mandated [...] characteristics determined by the Surgical Pathology Department [facility]. It has not been cleared or approved by the U. S. Food and Drug Administration. Note for decalcified specimens: This assay has not been validated on decalcified tissues. Results should be interpreted with caution given the possibility of false negativity on decalcified specimens Nichole Velazquez MD LAB PATHOLOGY ORDERABLES F inal Result from Last 3 Months Insurance FOR[facility]LY [facility] MEDICARE [facility] MEDICARE Address: [facility] [address] [place] [address] Care Teams Commercial Roofer Relationship Specialty Start Date End Date Eliseo Waters DO PCP - General Internal Medicine 09/16/23
--- OUTSIDE RECORDS SUMMARY | 2024-08-16 13:19 | XMS_ITS | Clinical Summary ---
Author Organization [facility] [address] Address [address] [place] [address] Care Team Providers Care Director Safety Council Name Role Phone Eliseo Waters DO Primary Care Provider +1- [phone] Allergies No known active allergies Medications ferrous [...] DAILY 60 tablet 11 023 2024 Disconti arnoldo(Reo rder) Active Problems Problem Noted Date Diagnosed Date Chronic anticoagulation 09/16/2023 Nonrheumatic aortic valve stenosis 09/16/2023 Paroxysmal atrial fibrillation (CMS/HCC) 023 Nonrheumatic mitral valve regurgitation 06/02/20 23 Nonrheumatic tricuspid valve regurgitation 06/02 Hospital discharge follow-up 06/02/2023 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 Leukemia 01/15/2021 CLL (chronic lymphocytic leukemia) 08/08/2014 Encounters Date Type Department Care Team Description 07/31/2024 Telephone [facility] Cardiology [address] [facility] [address] [place] [address] Aldo Morelos MD Med Refill 07/17/2024 8:00 AM RETAIL EXPERIENCE SPECIALIST - 07/17/2024 11:59 PM RETAIL EXPERIENCE SPECIALIST [place] [address] Discharge Disposition: Discharge to home or self [...] on file Legal Sex Female 11:42 PM RETAIL EXPERIENCE SPECIALIST Gender Identity Not on file Sexual Orientation [...] SURGICAL PATHOLOGY Routine 07/17/2024 9: 46 AM RETAIL EXPERIENCE SPECIALIST from Last 3 Months Results * Surgical pathology (07/17/2024 9:46 AM RETAIL EXPERIENCE SPECIALIST) Bone - Biopsy / Curettings 07/17/2024 9:46 AM RETAIL EXPERIENCE SPECIALIST 07/18/2024 9:46 AM RETAIL EXPERIENCE SPECIALIST Narrative 07/19/2024 10:43 PM RETAIL EXPERIENCE SPECIALIST EPIC results best viewed via link to PDF [facility] Department of Pathology [address] [place], [place] [id number] Note to Patients: This report may contain [...] with Addendum Patient Name: SANDRA FORD Address: [address] [place] [address] Gender: F : 1935 (Age: 88) Service: Location: [facility] #: [id number] Patient Type: SPECIMEN Taken: 07/17/2024 Received: 07/18/2024 [...] Addendum Comment The external consult report from [facility] ([id number]) has been finalized and is attached. For the tour consultant s comment, please see scanned image of report or the report can be viewed in the Electronic Medical Record of the patient. If access to the EMR is not available, please call pathology for a hard copy of the report ([phone]). 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 See [...] determined by the Surgical Pathology Department at [facility] as part of an ongoing quality control clerk program and in compliance with federally mandated [...] characteristics determined by the Surgical Pathology Department [facility]. It has not been cleared or approved by the U. S. Food and Drug Administration. Note for decalcified specimens: This assay has not been validated on decalcified tissues. Results should be interpreted with caution given the possibility of false negativity on decalcified specimens Nichole Velazquez MD LAB PATHOLOGY ORDERABLES F inal Result from Last 3 Months Insurance [employer] MEDICARE [facility] MED[facility] Address: [facility] [id number] [place] [phone] Care Teams Director Safety Council Relationship Specialty Start Date End Date Eliseo Waters DO PCP - General Internal Medicine 09/16/23
--- OUTSIDE RECORDS SUMMARY | 2024-08-16 13:19 | XMS_ITS | Clinical Summary ---
Author [facility] Address [address] [place] [address] Care Team Providers Care Rn Gyn Name Role Phone TeresaEliseo saravia Sudarshan Primary Care Provider Allergies Active Allergy [...] Encounters Date Type Department Care Team Description 08/11/2024 Abstract [facility] [address] [place] [address] Nicholas Gibson MD 08/08/2024 Telephone [facility] [address] [place] [address] Nicholas Gibson MD Surgical Clearance 08/07/2024 Telephone [facility] [address] [place] [address] Nicholas Gibson MD Lab Results 08/07/2024 Telephone [facility] [address] [place] [address] Nicholas Gibson MD Labs Only 08/03/2024 Abstract [facility] [address] [place] [address] Nicholas Gibson MD 07/25/2024 Orders Only [facility] [address] [place] [address] Nicholas Gibson MD 07/25/2024 Telephone [facility] [address] [place] [address] Nicholas Gibson MD Medication Review 07/20/2024 External Device Data ST[facility] ABSTRACTION Provider, Abstract 07/18/2024 Specialty Pharmacy [facility] [address] [place] [phone] Luanne Pantoja PHARMACIST 07/14/2024 Orders Only [facility] [address] [place] [address] Nicholas Gibson MD 07/11/2024 Telephone [facility] [address] [place] [address] Nicholas Gibson MD Medication Review 07/06/2024 Refill [facility] [address] [place] [address] Nicholas Gibson MD 06/13/2024 9:45 AM FILTER TANK TENDER Office Visit [facility] [address] [place] [id number] Nicholas Gibson MD CLL (chronic lymphocytic leukemia) (CMS/HCC) (Primary Dx) 06/13/2024 Orders Only [facility] [place] [address] [place] [address] Nicholas Gibson MD 06/13/2024 Telephone [facility] [place] [address] [place] [address] Nicholas Gibson MD Medication Review 06/12/2024 Orders Only [facility] [address] [place] [address] Nicholas Gibson MD 06/09/2024 Telephone [facility] [address] [place] [address] iNcholas Gibson MD Lab Results 06/08/2024 Specialty Pharmacy [facility] [address] [place] [address] [place] [address] Sarah Garcia, PHARMACIST Specialty Pharmacy Refill Coordination 05/24/2024 Telephone [facility] [place] [address] [place] [address] Nicholas Gibson MD Medication Review 05/16/2024 Specialty Pharmacy [facility] [address] [place] [address] Ivet Malagon, PHARMACIST Specialty Pharmacy Clinical Assessment 05/16/2024 Specialty Pharmacy [facility] [address] [place] [address] Ivet Malagon, PHARMACIST Specialty Pharmacy Refill Coordination 05/16/2024 Specialty Pharmacy [facility] [place] [address] [place] [address] Ivet Malagon, PHARMACIST Specialty Pharmacy Prior Auth Coordination from Last 3 Months Family History Medical [...] Comments Blood Pressure 134/79 06/13/2024 9:49 AM FILTER TANK TENDER Pulse 77 06/13/2024 9:49 AM FILTER TANK TENDER Temperature 36.5 C (97.7 F) 06/13/2024 9:49 AM FILTER TANK TENDER Respiratory Rate 18 06/13/2024 9:49 AM FILTER TANK TENDER Oxygen Saturation 98% 06/13/2024 9:49 AM FILTER TANK TENDER Inhaled Oxygen Concentration - - Weight 49.9 kg (110 lb) 06/13/2024 9:49 AM FILTER TANK TENDER Height 147.3 cm (4' 10 ) 10/06/2023 12:32 PM CDT Body Mass Index 22.99 10/06/2023 12:32 PM CDT Plan of Treatment Upcoming Encounters Date Type Department Care Team (Late st Contact Info) Description 08/23/2024 2:45 PM FILTER TANK TENDER Office Visit [facility] [address] [place] [address] Nicholas Gibson MD [address] [facility] [address] [place] [address] Health Maintenance Due Date Last Done Comments DTAP/TDAP/TD VACCINES (1 - Tdap) 09[birth year]16/1954 PNEUMOCOCCAL VACCINE 65+ YEARS (1 of 2 - PCV) 09/16/18 55 ZOSTER VACCINE (1 of 2) 09/16/1954 OSTEOPOROSIS SCREENING 09/16/2000 RSV VACCINE (60+ or ) (1 - 1-dose 75+ series) 09/16/2010 INFLUENZA VACCINE (#1) 2024 Medicare Advantage (DC) Prev entative Visit/Annual Wellness Visit 06/28/2024 Procedures Procedure Name Priority Date/Time Associated Diagnosis Comments CBC WITH AUTODIFFERENTIAL Routine 2024 2:09 PM FILTER TANK TENDER BASIC METABOLIC PANEL Routine 07/14/2024 3:16 PM FILTER TANK TENDER CBC WITH DIFFERENTIAL Routine 07/14/2024 12:58 PM FILTER TANK TENDER BASIC METABOLIC PANEL Routine 06/09/2024 12:35 PM FILTER TANK TENDER BASIC METABOLIC PANEL Routine 06/09/2024 11:14 AM FILTER TANK TENDER from Last 3 Months Results * CBC WITH AUTODIFFERENTIAL (07/20/2024 2:09 PM FILTER TANK TENDER) Blood us Nicholas Gibson MD HEMATOLOGY ORDERABLES Final Res ult * BASIC METABOLIC PANEL (07/14/2024 3:16 PM FILTER TANK TENDER) Only the most recent of3 resultswithin the time period is included. Blood us Nicholas Gibson MD CHEMISTRY ORDERABLES Final Resu lt * CBC WITH DIFFERENTIAL (07/14/2024 12:58 PM FILTER TANK TENDER) Blood us Nicholas Gibson MD HEMATOLOGY ORDERABLES Final Res ult from Last 3 Months Insurance AETNA PPO [facility] AETNA PPO [facility] RX AETNA Medicare Part D Care Teams Rn Gyn Relationship Specialty Start Date End Date Eliseo Waters DO [address] [address] PCP - General Internal Medicine 03/24/24
[2024-08-16 16:28] LABS: Calcium 9.7 mg/dL (8.4-10.2); Phosphorus 4.3 mg/dL (2.5-4.5)
[2024-08-16 16:58] LABS: Vitamin D 25 Hydroxy 59.5 ng/mL
== END 2024-08-16 13:14 | disposition home or self-care (01) ==
LOC: ANHIMG 13:14
PROVIDERS: PCP Internal Medicine; Visit Provider Nurse Practitioner
DX: Z78.0 Asymptomatic menopausal state (principal); E55.9 Vitamin D deficiency, unspecified; M81.0 Age-related osteoporosis without current pathological fracture; M85.88 Other specified disorders of bone density and structure, other site
CPT/HCPCS: 36415; 77080; 82306; 82310; 84100

== ENCOUNTER 2024-08-16 13:39 | Outpatient (CLI) | payer MEDICARE, SELFPAY ==
--- OUTSIDE RECORDS SUMMARY | 2024-08-16 13:43 | XMS_ITS | Data Portability ---
Author Organization [place] [facility], Main Office Address [address] [place] [address] Assessment No assessment recorded. Plan of Treatment [...] bingham am No observ ation record ed. [id number] _[facility]_[address], [place], [address], 08/26/2022 23:11:14 02/20/20 21 01/15/2021 elect kaylan bingham am No observ ation record ed. [id number] _[address], [place], [address], 08/26/2022 23:11:14 04/14/20 22 XR, lumbo sacra l spine , 2 or 3 view [facility] [address] [facility] [place] [address] Fernando t Name: SANDRA FORD Access ion #: [id number] Sex: F : 1935 4 Locati [...] t Name: SANDRA FORD Access ion #: [id number] Sex: F : 1935 4 Exam [...] 9:14 AM (CT) Page 2 of 2 [id number] [facility] (Imaging) [address] [place] [address], [address], 08/26/2022 23:11:14 04/14/20 22 04/14/2022 XR, lumbo sacra l spine , 2 or 3 view No observ ation record ed. [id number] 075[address] [facility] [address] , [place], [address], 08/26/2022 23:11:14 06/15/20 22 06/15/2022 imagi ng/di agnos tic resul t No observ ation record ed. [id number] [place] [address] [address], [place], [address], 08/26/2022 23:11:14 06/15/20 22 06/15/2022 imagi ng/di agnos tic resul t No observ ation record ed. [id number] [place] [address] [address], [place], [address], 08/26/2022 23:11:14 06/23/20 22 06/23/2022 CT, abdom en + pelvi s, w/ contr ast No observ ation record ed. [id number] [place] [address], [place], [address], 08/26/2022 23:11:14 07/31/19 23 07/31/2022 CT, abdom en + pelvi s, w/ contr ast No observ ation record ed. [id number] [place] [address] [address], [place], [address], 08/26/2022 23:11:14 04/02/20 23 04/02/2023 XR, wrist , 3 or more view No observ ation record ed. [address], [place], [address], 04/05/2023 10:20:44 04/02/20 23 04/02/2023 XR, hip, bilat eral, 2 view No observ ation record ed. [address], [place], [address], 04/05/2023 10:22:37 04/02/20 23 04/02/2023 XR, femur , 2 or more view No observ ation record ed. [address], [place], [address], 04/05/2023 10:23:23 04/03/2004/03/2023 CT, hip, w/o contr ast No observ ation record ed. [address], [place], [address], 04/05/2023 10:24:12 04/03/2004/03/2023 XR, chest , 2 view No observ ation record ed. [address], [place], [address], 04/05/2023 10:25:09 04/05/20 23 04/05/2023 stres s echoc ardio gram No observ ation record ed. [address], [place], [address], 04/05/2023 15:52:26 04/05/2004/05/2023 XR, shoul maxim No observ ation record ed. [address], [place], [address], 04/05/2023 15:52:39 Result Notes None recorded. 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 Procedures Surgical History Date Name Laterality Status Provider Name and Address Organization Details Recorded Time Cataract Surgery completed Not Available [facility] 08/26/2022 23:06:17 cardiac catheterization completed Not Available [facility] 08/26/2022 23:06:17 colonoscopy completed Not Available [facility] 08/26/2022 23:06:17 dacryocystotomy completed Not Available [facility] 08/26/2022 23:06:17 Hysterectomy completed Not Available [facility] 08/26/2022 23:06:17 Cholecystectomy completed Not Available [facility] 08/26/2022 23:06:17 Imaging Results Imaging Date Name Status LastModified by Organization Details LastModified Time 06/23/2022 CT, abdomen + pelvis, w/ contrast completed [id number] [address], [place], [address], 08/26/2022 23:11:14 06/15/2022 imaging/diagnostic result completed [id number].[id number] [place] [address], [place], [address], 08/26/2022 23:11:14 06/15/2022 imaging/diagnostic result completed [id number] [place] [address], [place], [address], 08/26/2022 23:11:14 07/31/2022 CT, abdomen + pelvis, w/ contrast completed [id number] 41146 [facility] [address], [place], [address], 08/26/2022 23:11:14 01/16/2021 electrocardiogram completed MIGRATION. [id number] [facility] [address], [place], [address], 08/26/2022 23:11:14 01/15/2021 electrocardiogram completed MIGRATION. [id number] [facility] , [address], [place], [address], 08/26/2022 23:11:14 04/14/2022 XR, lumbosacral spine, 2 or 3 view completed [id number].[id number] 02367 [facility] (Imaging) [address] [facility], [place], [address], 08/26/2022 23:11:14 04/14/2022 XR, lumbosacral spine, 2 or 3 view completed [id number], [place], [address], 08/26/2022 23:11:14 04/02/2023 XR, wrist, 3 or more view completed [address], [address], 04/05/2023 10:20:44 04/02/2023 XR, hip, bilateral, 2 view completed [address], [address], 04/05/2023 10:22:37 04/02/2023 XR, femur, 2 or more view completed [address], [address], 04/05/2023 10:23:23 04/03/2023 CT, hip, w/o contrast completed [address], [address], 04/05/2023 10:24:12 04/03/2023 XR, chest, 2 view completed [address], [address], 04/05/2023 10:25:09 04/05/2023 stress echocardiogram completed [address], [address], 04/05/2023 15:52:26 04/05/2023 XR, shoulder completed [id number], [place], [address], 04/05/2023 15:52:39 Procedure Notes None recorded. Medical [...] /min 113 /min 97.3 [degF] 97.3 [degF] 99879.7 9 g 13631.6 g 116 mm[Hg] 76 mm[Hg] 144 mm[Hg] 90 mm[Hg] Not Available [facility] 3 23:08:21 Date Recorded Body height Body mass index (BMI) Body weight Body temperature Heart rate Oxygen saturation Oxygen saturation in Arterial blood by Pulse oximetry Systolic blood pressure Diastolic blood pressure Provider Name and Address Organization Details Last Updated DateTime 3 147.32 cm 26.1 kg/m2 71497.0 5 g 98.7 [degF] 103 /min 98 % 98 % 130 mm[Hg] 80 mm[Hg] MARIELA Mckeon [place] [facility] 3 10:07:40 Social History Question Answer Notes LastModified by Organizat ion Details LastModified Time Tobacco Smoking Status Never Smoker Not Available [facility] 08/26/2022 23:06:07 What Is Your Level Of Alcohol Consumption? None [id number] Information not available 08/26/2022 In The 14 Days Before Symptom Onset, Have You Had Close Contact With A Laboratory-confirm ed COVID-19 While That Case Was Ill? No [id number] Information not available 08/26/2022 In The 14 Days Before Symptom Onset, Have You Had Close Contact With A Person Who Is Under Investigation For COVID-19 While That Person Was Ill? No [id number] 026 Information not available 08/26/2022 Sex: Unknown Functional Status None recorded. Mental Status None recorded. Family History Relationship Description Onset Age of this Age Resolved Age Notes LastModified by Organization Details LastModified Time Father Calcificatio n of lung [id number] Not available 08/26/2022 23:06:23 Father Malignant tumor of lung [id number] Not available 08/26/2022 23:06:23 Mother Aneurysm [id number] Not available 08/26/2022 23:06:23 Medical History Condition Response BLINDNESS N RHEUMATIC FEVER N KIDNEY STONES N BLADDER PROBLEMS N MRSA N OTHER # 1 N POLIO N LUNG DISEASE/DISORDER N HISTORY OF DRUG ABUSE N COPD N RADIATION / CHEMOTHERAPY N Other # 2 N BLOOD DISEASES N SURGERY N EAR OR HEARING PROBLEMS Y MUMPS N SHINGLES N BOWEL PROBLEMS N FEMALE PROBLEMS / INFECTIONS N DEPRESSION (INCLUDING POST ) N STROKE/TIA N THYROID DISEASE N ULCERS N BENIGN PROSTATIC HYPERPLASIA N MEASLES N CERVICALGIA N TB SKIN TEST N HYPOTENSION N MYOCARDIAL INFARCTION N OBESITY N PARAPELGIA [...] HAVE YOU BEEN HOSPITALIZED OR SEEN IN [facility] IN THE PAST YEAR ? N [...] N PAIN N HERPES N DEMENTIA N HEADACHES/MIGRAINES N SEIZURES/EPILEPSY N VASCULAR DISEASE N PACEMAKER N DIZZINESS N HEART DISEASE/HEART PROBLEMS N KIDNEY DISEASE N DEVELOPMENTAL OR BEHAVIORAL DISORDERS N MULTIPLE SCLEROSIS N SCARLET FEVER N MENTAL DISORDER/ILLNESS N CARDIAC ARRHYTHMIA N CANCER: SPECIFY N PNEUMONIA N ATRIAL FIBRILLATION N Gall Stones Y PULMONARY EMBOLISM N AUTOIMMUNE DISEASE N Gynecological HistoryNo gynecological history recorded. Obstetrics History GPAL:G 0 P 0 0 0 0 Past Encounters Encounter ID Performer Location Encounter Start Date Encounter Closed Date Diagnosis/Indication Diagnosis SNOMED-CT Code Diagnosis ICD10 Code Diagnosis Note [id number] [facility] [place] [address] 01/15/2021 00:00:00 01/16/2021 06:41:22 [id number] [facility] [place] [address] 04/14/2022 00:00:00 04/14/2022 12:21:36 [id number] Georgette Campuzano MD [facility] Practice [address] [place] [address] 10/14/2022 09:54:33 10/14/2022 10:29:47 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 Chronic ly mphoid leukemia, disease 10668762 C91.10 F/u with oncologist /hematolog ist Health Concerns Section Related Observation LastModified by Organization Detai ls LastModified Time None Recorded Concern Status LastModified by Organization Details LastModified Time None Recorded Advance Directives Directive None Recorded Payers Encounter Date Sequence Insurance Name Policy Number Policy Lua Covered Member ID Lua Member ID Guarantor Name 10/14/2022 1 [employer] (MEDICARE REPLACEMENT PPO) [id number] Sandra Ford [id number] Sandra Ford Notes Date Note Type Note [...] vaginal discharge very slight. Georgette Campuzano MD [address] [place] [address], [facility] [address], [place], [address], [facility] 10/14/2022 10:45:32 OBGyn Episode No OBEpisode recorded.
--- OUTSIDE RECORDS SUMMARY | 2024-08-16 13:43 | XMS_ITS | Continuity of Care Document ---
Author Organization [facility] Address [address] [place] [address] [place] [address] Phone Care Team Providers Care Double Back Operator Name Role Phone Misha Perdomo Unavailable Unavailable [...] Office/outpat ient Visit, Est [facility], [address] [place] [address] [address], [place], [place], [address], tel:[phone] [facility] No Information Sep-0 9-201 0 Conor Cabral. [address] , [address], [place], [address], [place]. tel:[phone] [facility], [address], [place], [place], [address], [place] tel:[phone] [facility] No Information Sep-1 0-200 9 Conor Cabral. [address] , [address], [place], [address], [place]. tel:[phone] [facility], [address], [place], [place], [address], [place] tel:[phone] [facility] No Information 3200 8 Conor Cabral. [address] , [address], [place], [address], [place]. tel:[phone] [facility], [address], [place], [place], [address], [place] tel:[phone] [facility] No Information 7 Conor Cabral. [address] [facility] , [address], [place], [place], [facility], [place]. tel:[phone] [facility], [address], [place], [place], [address], [place] tel:[phone] [facility] No Information 1200 7 Conor Cabral. [address], [place], [place], [facility], [place]. tel:[phone] [facility], [address], [place], [place], [address], [place] tel:[phone] [facility] No Information 0 7 Conor Cabral. [address], [address], [place], [place], [facility], [place]. tel:[phone] Office/outpat ient Visit, Est [facility], [address] [place] [address] [address], [place], [place], [address], [place] tel:[phone] [facility] No Information 7 Conor Cabral. [address] , [address], [place], [place], [facility], [place]. tel:[phone] Referring Provider: Misha Flores, [facility] [address], [place], [address]. tel:[phone] Family History Family Member Type Diagnosis Age At Onset No Information Payers Payer name Insurance type Covered alliance party ID Authoriza tion(s) [place] [id number] Social History Type Description Quantity Date Captured [...]
--- OUTSIDE RECORDS SUMMARY | 2024-08-16 13:44 | XMS_ITS | Referral Summary ---
Author Organization [facility] [address] Address [address] [place] [address] Care Team Providers Care Embroidery Cutter Name Role Phone Eliseo Waters DO Primary Care Provider [phone] Encounters Date Type Department Care Team Description 07/31/2024 Telephone [facility] Cardiology [address] [place] [address] Aldo Morelos MD Med Refill 07/17/2024 8:00 AM ENGINEERING DIRECTOR - 07/17/2024 11:59 PM ENGINEERING [place] [address] Discharge Disposition: Discharge to home or self [...] on file Legal Sex Female 11:42 PM ENGINEERING DIRECTOR Gender Identity Not on file Sexual Orientation [...] SURGICAL PATHOLOGY Routine 07/17/2024 9: 46 AM ENGINEERING DIRECTOR from Last 3 Months Results * Surgical pathology (07/17/2024 9:46 AM ENGINEERING DIRECTOR) Bone - Biopsy / Curettings 07/17/2024 9:46 AM ENGINEERING DIRECTOR 07/18/2024 9:46 AM ENGINEERING DIRECTOR Narrative 07/19/2024 10:43 PM ENGINEERING DIRECTOR EPIC results best viewed via link to PDF [facility] Department of Pathology [address] [place] [address] Note to Patients: This report may [...] with Addendum Patient Name: SANDRA FORD Address: [address] [place] [address] Gender: F : 1935 (Age: 88) Service: Location: [facility] : [id number] [facility] #: [id number] Patient Type: SPECIMEN Taken: 07/17/2024 Received: 07/18/2024 [...] The external consult report from [facility] ([id number]) has been finalized and is attached. For the technology sales consultant s comment, please see scanned image of report or the report can be viewed in the Electronic Medical Record of the patient. If access to the EMR is not available, please call pathology for a hard copy of the report ([phone]). 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 See [...] determined by the Surgical Pathology Department at [facility] as part of an ongoing quality compliance manager program and in compliance with federally mandated [...] characteristics determined by the Surgical Pathology Department [facility]. It has not been cleared or approved by the U. S. Food and Drug Administration. Note for decalcified specimens: This assay has not been validated on decalcified tissues. Results should be interpreted with caution given the possibility of false negativity on decalcified specimens Nichole Velazquez MD LAB PATHOLOGY ORDERABLES F inal Result from Last 3 Months Insurance [facility] MEDICARE Care Teams Embroidery Cutter Relationship Specialty Start Date End Date Eliseo Waters DO PCP - General Internal Medicine 09/16/23
--- OUTSIDE RECORDS SUMMARY | 2024-08-16 13:44 | XMS_ITS | Clinical Summary ---
Author Organization [facility] Address [address] [place] [address] Care Team Providers Care Collections Representative Name Role Phone TeresaEliseo saravia Sudarshan Primary [...] Type Department Care Team Description 08/11/2024 Abstract [facility] Oncology and Hematology - Ck [address] [place] [address] Nicholas Gibson MD 08/08/2024 Telephone [facility] Oncology and Hematology - Ck [address] [place] [address] Nicholas Gibson MD Surgical Clearance 08/07/2024 Telephone [facility] Oncology and Hematology - Ck [address] [place] [address] Nicholas Gibson MD Lab Results 08/07/2024 Telephone [facility] Oncology and Hematology - Ck [address] [place] [address] Nicholas Gibson MD Labs Only 08/03/2024 Abstract [facility] Oncology and Hematology - Ck [address] [place] [address] Nicholas Gibson MD 07/25/2024 Orders Only [facility] Oncology and Hematology - Ck [address] [place] [address] Nicholas Gibson MD 07/25/2024 Telephone [facility] Oncology and Hematology - Ck [address] [place] [address] Nicholas Gibson MD Medication Review 07/20/2024 External Device Data STL ABSTRACTION Provider, Abstract 07/18/2024 Specialty Pharmacy [facility] [address] [place] [address] Luanne Pantoja PHARMACIST 07/14/2024 Orders Only [facility] Oncology and Hematology - Ck [address] [place] [address] Nicholas Gibson MD 07/11/2024 Telephone [facility] Oncology and Hematology - Ck [address] [place] [address] Nicholas Gibson MD Medication Review 07/06/2024 Refill [facility] Oncology and Hematology - Ck [address] [place] [address] Nicholas Gibson MD 06/13/2024 9:45 AM GAME PRESERVE MANAGER Office Visit [facility] Oncology and Hematology - Ck [address] [place] [address] Nicholas Gibson MD CLL (chronic lymphocytic leukemia) (CMS/HCC) (Primary Dx) 06/13/2024 Orders Only [facility] Oncology and Hematology - [place] [address] [place] [address] Nicholas Gibson MD 06/13/2024 Telephone [facility] Oncology and Hematology - [place] [address] [place] [address] Nicholas Gibson MD Medication Review 06/12/2024 Orders Only [facility] Oncology and Hematology - Ck [address] [place] [address] Nicholas Gibson MD 06/09/2024 Telephone [facility] Oncology and Hematology - C[address] [place] [address] Nicholas Gibson MD Lab Results 06/08/2024 Specialty Pharmacy [facility] [address] [place] [address] [place] [address] Sarah Garcia, PHARMACIST Specialty Pharmacy Refill Coordination 05/24/2024 Telephone [facility] Oncology and Hematology - [place] [address] [place] [address] Nicholas Gibson MD Medication Review 05/16/2024 Specialty Pharmacy [facility] [address] [place] [address] Ivet Malagon, PHARMACIST Specialty Pharmacy Clinical Assessment 05/16/2024 Specialty Pharmacy [facility] [address] [place] [address] Ivet Malagon, PHARMACIST Specialty Pharmacy Refill Coordination 05/16/2024 Specialty Pharmacy [facility] [place] [address] [facility] [address] [place] [address] Ivet Malagon, PHARMACIST Specialty Pharmacy Prior Auth [...] Comments Blood Pressure 134/79 06/13/2024 9:49 AM GAME PRESERVE MANAGER Pulse 77 06/13/2024 9:49 AM GAME PRESERVE MANAGER Temperature 36.5 C (97.7 F) 06/13/2024 9:49 AM GAME PRESERVE MANAGER Respiratory Rate 18 06/13/2024 9:49 AM GAME PRESERVE MANAGER Oxygen Saturation 98% 06/13/2024 9:49 AM GAME PRESERVE MANAGER Inhaled Oxygen Concentration - - Weight 49.9 kg (110 lb) 06/13/2024 9:49 AM GAME PRESERVE MANAGER Height 147.3 cm (4' 10 ) 10/06/2023 12:32 PM CDT Body Mass Index 22.99 10/06/2023 12:32 PM CDT Plan of Treatment Upcoming Encounters Date Type Department Care Team (Late st Contact Info) Description 08/23/2024 2:45 PM GAME PRESERVE MANAGER Office Visit [facility] Oncology and Hematology - Ck [address] [place] [address] Nicholas Gibson MD [address] [facility] [address] [place] [address] Health Maintenance Due Date Last Done Comments DTAP/TDAP/TD VACCINES (1 - Tdap) 09/16/1954 PNEUMOCOCCAL VACCINE 65+ YEARS (1 of 2 - PCV) 09/16/18 55 ZOSTER VACCINE (1 of 2) 09/16/1954 OSTEOPOROSIS SCREENING 09/16/2000 RSV VACCINE (60+ or ) (1 - 1-dose 75+ series) 09/16/2010 INFLUENZA VACCINE (#1) 2024 Medicare [place]) Prev entative Visit/Annual Wellness Visit 06/28/2024 Procedures Procedure Name Priority Date/Time Associated Diagnosis Comments CBC WITH AUTODIFFERENTIAL Routine 2024 2:09 PM GAME PRESERVE MANAGER BASIC METABOLIC PANEL Routine 07/14/2024 3:16 PM GAME PRESERVE MANAGER CBC WITH DIFFERENTIAL Routine 07/14/2024 12:58 PM GAME PRESERVE MANAGER BASIC METABOLIC PANEL Routine 06/09/2024 12:35 PM GAME PRESERVE MANAGER BASIC METABOLIC PANEL Routine 06/09/2024 11:14 AM GAME PRESERVE MANAGER from Last 3 Months Results * CBC WITH AUTODIFFERENTIAL (07/20/2024 2:09 PM GAME PRESERVE MANAGER) Blood us Nicholas Gibson MD HEMATOLOGY ORDERABLES Final Res ult * BASIC METABOLIC PANEL (07/14/2024 3:16 PM GAME PRESERVE MANAGER) Only the most recent of3 resultswithin the time period is included. Blood us Nicholas Gibson MD CHEMISTRY ORDERABLES Final Resu lt * CBC WITH DIFFERENTIAL (07/14/2024 12:58 PM GAME PRESERVE MANAGER) Blood us Nicholas Gibson MD HEMATOLOGY ORDERABLES Final Res ult from Last 3 Months Insurance [employer]ET[employer] PPO [facility] AETNA PPO [facility] RX AETNA Medicare Part D Care Teams Collections Representative Relationship Specialty Start Date End Date Eliseo Waters DO [address] [address] PCP - General Internal Medicine 03/24/24
--- OUTSIDE RECORDS SUMMARY | 2024-08-16 13:44 | XMS_ITS | Clinical Summary ---
Author Organization [facility] [address] Address [address] [place] [address] Care Team Providers Care Service Secretary Name Role Phone Eliseo Waters DO Primary Care Provider +1- [phone] Allergies No known active allergies Medications ferrous [...] Type Department Care Team Description 07/31/2024 Telephone [facility] Medical Group Cardiology [address] [facility] [address] [place] [address] Aldo Morelos MD Med Refill 07/17/2024 8:00 AM CYTOTECHNOLOGIST - 07/17/2024 11:59 PM CYTOTECHNOLOGIST [place] [address] Discharge Disposition: Discharge to home or self [...] on file Legal Sex Female 11:42 PM CYTOTECHNOLOGIST Gender Identity Not on file Sexual Orientation [...] SURGICAL PATHOLOGY Routine 07/17/2024 9: 46 AM CYTOTECHNOLOGIST from Last 3 Months Results * Surgical pathology (07/17/2024 9:46 AM CYTOTECHNOLOGIST) Bone - Biopsy / Curettings 07/17/2024 9:46 AM CYTOTECHNOLOGIST 07/18/2024 9:46 AM CYTOTECHNOLOGIST Narrative 07/19/2024 10:43 PM CYTOTECHNOLOGIST EPIC results best viewed via link to PDF [facility] Department of Pathology [address] [place], [place] [id number] Note to Patients: This report may contain [...] with Addendum Patient Name: SANDRA FORD Address: [address] [place] [address] Gender: F : 1935 (Age: 88) Service: Location: [facility] #: [id number] Patient Type: SPECIMEN Taken: 07/17/2024 Received: 07/18/2024 [...] Addendum Comment The external consult report from [facility] ([id number]) has been finalized and is attached. For the bridal stylist sales consultant s comment, please see scanned image of report or the report can be viewed in the Electronic Medical Record of the patient. If access to the EMR is not available, please call pathology for a hard copy of the report ([phone]). 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 See [...] determined by the Surgical Pathology Department at [facility] as part of an ongoing supplier quality specialist program and in compliance with federally mandated [...] characteristics determined by the Surgical Pathology Department [facility]. It has not been cleared or approved by the U. S. Food and Drug Administration. Note for decalcified specimens: This assay has not been validated on decalcified tissues. Results should be interpreted with caution given the possibility of false negativity on decalcified specimens Nichole Velazquez MD LAB PATHOLOGY ORDERABLES F inal Result from Last 3 Months Insurance AET[employer] MEDICARE Care Teams Service Secretary Relationship Specialty Start Date End Date Eliseo Waters DO PCP - General Internal Medicine 09/16/23
[2024-08-16 14:10] LABS: Eosinophils Absolute Auto 0.3 K/mm3 (0-0.3); Eosinophils Percent Auto 0.2 % (0-4.4); Hemoglobin 10.7 g/dL (12.0-15.0); Immature Granulocyte Percent A 0.1 % (0-0.5); Immature Platelet Fraction Pct 6.6 % (0.9-11.2); Lymphocytes Absolute Auto 162.84 K/mm3 (0.9-3.2); Lymphocytes Percent Auto 96.6 % (18.3-44.2); Mean Corpuscular HGB Conc 28.2 g/dl (32-36); Mean Corpuscular Hemoglobin 28.5 pg (26-34); Mean Corpuscular Volume 101.3 fl (80-100); Mean Platelet Volume 10.8 fl (7.4-10.4); Monocytes Absolute Auto 0.4 K/mm3 (0.1-0.6); Monocytes Percent Auto 0.2 % (2.6-8.5); Neutrophils Absolute Auto 4.9 K/mm3 (1.3-6.7); Neutrophils Percent Auto 2.9 % (45.5-73.1); Platelet Count Result 182 k/mm3 (150-375); Red Blood Count 3.75 M/mm3 (4.2-5.4); Red Cell Distribution Width 18.6 % (11.5-14.5); White Blood Count 168.6 K/mm3 (4.5-10.0)
[2024-08-16 14:14] LABS: Platelet Estimate Adequate (Adequate)
[2024-08-16 14:16] LABS: Anisocytosis 2+; Hypochromasia 1+; Ovalocytes 1+
[2024-08-16 14:17] LABS: Atypical Lymphocytes Present
[2024-08-16 14:29] LABS: Schistocytes None Seen
== END 2024-08-16 13:40 | disposition home or self-care (01) ==
LOC: ANHLAB 13:40
PROVIDERS: PCP Internal Medicine; Visit Provider Internal Medicine Hematology & Oncology
DX: E55.9 Vitamin D deficiency, unspecified (principal); M81.0 Age-related osteoporosis without current pathological fracture
CPT/HCPCS: 36415; 85025; 85055

== ENCOUNTER 2024-08-29 10:32 | Outpatient (CLI) | payer MEDICARE, SELFPAY ==
[2024-08-29 14:09] LABS: Free T3 3.06 pg/mL (2.34-5.61); Free T4 Free Thyroxine 1.81 ng/dL (0.78-2.19)
[2024-08-29 19:49] LABS: Add Urine Microscopic? YES; Appearance Urine Turbid (Clear); Bacteria Urine 4+ /hpf; Bilirubin Urine 2+ (Negative); Blood Urine 3+ (Negative); Calcium Oxalate Crystals Urine Present /hpf; Color Urine Dark Yellow (Yellow); Glucose Urine UA Negative (Negative); Ketones Urine Negative (Negative); Leukocyte Esterase Ur 3+ LEU/UL (Negative); Need Manual Microscopic Reviewed; Nitrate Urine Negative (Negative); Non Pathogenic Casts 0-2; Protein Urine 2+ mg/dL (Negative); RBC Urine >100 /hpf (0-2); Specific Grav Ur 1.025 (1.001-1.035); Squamous Epithelial Cell Urine Many /hpf (Few); WBC Urine >100 /hpf (0-3)
[2024-08-29 21:55] LABS: Alanine Aminotransferase 12 U/L (6-35); Albumin Level 4.1 g/dL (3.5-5.1); Alkaline Phosphatase 72 U/L (38-126); Anion Gap 11 mmol/L (4-12); Aspartate Amino Transferase 35 U/L (14-36); Bilirubin,Total 0.9 mg/dL (0.2-1.3); Blood Urea Nitrogen 18 mg/dL (7-17); Calcium 10.3 mg/dL (8.4-10.2); Carbon Dioxide 25 mmol/L (22-30); Chloride 102 mmol/L (98-107); Estimated Glomerular Filt Rate 45; Glucose 115 mg/dL (65-110); Sodium 138 mmol/L (137-145)
[2024-08-30 00:37] LABS: Folic Acid 9.4 ng/mL (2.76->20)
== END 2024-08-29 10:33 | disposition home or self-care (01) ==
LOC: ANHGOSHLAB 10:35
PROVIDERS: PCP Internal Medicine; Visit Provider Internal Medicine
DX: R40.4 Transient alteration of awareness (principal); R41.3 Other amnesia
CPT/HCPCS: 36415; 80053; 81001; 82607; 82746; 84439; 84443; 84481

== ENCOUNTER 2024-09-05 12:20 | Outpatient (RCR) | payer MEDICARE, SELFPAY ==
[2024-09-05 13:08] LABS: Add Urine Microscopic? YES; Appearance Urine Turbid (Clear); Bacteria Urine 4+ /hpf; Bilirubin Urine Negative (Negative); Blood Urine 3+ (Negative); Calcium Oxalate Crystals Urine Present /hpf; Color Urine Dark Yellow (Yellow); Glucose Urine UA Negative (Negative); Ketones Urine Trace mg/dL (Negative); Leukocyte Esterase Ur 3+ LEU/UL (Negative); Mucus Urine Present /lpf; Nitrate Urine Negative (Negative); Protein Urine 1+ mg/dL (Negative); RBC Urine 51-100 /hpf (0-2); Specific Grav Ur 1.024 (1.001-1.035); Squamous Epithelial Cell Urine Occasional /hpf (Few); WBC Clumps Urine Present /HPF; WBC Urine >100 /hpf (0-3); pH Urine 5.5 (5.0-9.0)
== END 2024-12-04 23:59 | disposition home or self-care (01) ==
LOC: ANHLAB 12:20
PROVIDERS: PCP Internal Medicine; Visit Provider Internal Medicine
DX: R10.31 Right lower quadrant pain (principal); M54.50 Low back pain, unspecified; N82.4 Other female intestinal-genital tract fistulae; K57.80 Diverticulitis of intestine, part unspecified, with perforation and abscess without bleeding; C91.10 Chronic lymphocytic leukemia of B-cell type not having achieved remission; Z79.01 Long term (current) use of anticoagulants; I48.91 Unspecified atrial fibrillation
CPT/HCPCS: 81001; 87077; 87086; 87147; 87181; 87186

== ENCOUNTER 2024-09-08 07:45 | Outpatient (CLI) | payer MEDICARE, SELFPAY ==
--- NOTE | ~2024-09-08 | MR_ITS ---
EXAMINATION: MR brain/brain stem wo con DATE: 09/08/2024 08:18 INDICATION: Altered mental status. TECHNIQUE: Magnetic resonance imaging (MRI) of the brain and brainstem was performed without intraven ous contrast. COMPARISON: Head CT 07/20/2024 FINDINGS: There are scattered areas of nonspecific increased T2-weighted signal intensity in the cere bral white matter, which is within normal limits for the patient's age. There is no intracranial hemo rrhage, acute infarction, or abnormal intracranial mass lesion. The ventricles are normal in size. Th e paranasal sinuses are clear. There are likely changes of ocular lens replacement surgeries. There i s a right mastoid effusion. IMPRESSION: 1. Normal aging brain. Reviewed, dictated and finalized at location L. IMPRESSION: 1. Normal aging brain.
--- OUTSIDE RECORDS SUMMARY | 2024-09-08 07:50 | XMS_ITS | Clinical Summary ---
Author Organization [facility] Address [address] [place] [address] Care Team Providers Care Camp Nurse Name Role Phone Evelin Eliseo Sudarshan FENG [...] times daily. 120 Capsule 2 5 Active allopurinoL (ZYLOPRIM) 300 mg tablet Take 1 Tablet (300 mg) by mouth daily. 60 Tablet 2 5 Active Active Problems Problem Noted Date Diagnosed Date CLL (chronic lymphocytic leukemia) 03/24/2018 Encounters Date Type Department Care Team Description 09/06/2024 Telephone [facility] Oncology and Hematology [facility] [address] [place] [id number] Nicholas Gibson MD Medication Review 09/06/2024 Abstract [facility] Oncology and Hematology [facility] [address] [place] [address] Nicholas Gibson MD 08/29/2024 Abstract [facility] Oncology and Hematology [facility] [address] [place] [id number] Nicholas Gibson MD 08/28/2024 Abstract [facility] Oncology and Hematology [facility] [address] [place] [id number] Nihcolas Gibson MD 08/23/2024 2:45 PM PIPE BOWLS PAINT TRIMMER Office Visit [facility] Oncology and Hematology [facility] Elvira Torres [address] [place], [place] [address] Nicholas Gibson MD CLL (chronic lymphocytic leukemia) (CMS/HCC) (Primary Dx) 08/17/2024 Orders Only [facility] Oncology and Hematology [facility] [address] [place] [phone] Nicholas Gibson MD 08/16/2024 External Device Data STL ABSTRACTION Provider, Abstract 08/11/2024 Abstract [facility] Oncology and Hematology [facility] [address] [place] [address] Nicholas Gibson MD 08/08/2024 Telephone [facility] Oncology and Hematology [facility] Jeison Torres [address] [place] [phone] Nicholas Gibson MD Surgical Clearance 08/07/2024 Telephone [facility] Oncology and Hematology [facility] [address] [place] [address] Nicholas Gibson MD Lab Results 08/07/2024 Telephone [facility] Oncology and Hematology - [place] [address] [place] [address] Nicholas Gibson MD Labs Only 08/03/2024 Abstract [facility] Oncology and Hematology - [place] [address] [place] [address] Nicholas Gibson MD 07/25/2024 Orders Only [facility] Oncology and Hematology - [place] [address] [place] [address] Nicholas Gibson MD 07/25/2024 Telephone [facility] Oncology and Hematology - [place] [address] [place] [address] Nicholas Gibson MD Medication Review 07/20/2024 External Device Data STL ABSTRACTION Provider, Abstract 07/18/2024 Specialty Pharmacy [facility] [address] [place] [phone] Luanne Pantoja PHARMACIST 07/14/2024 Orders Only [facility] Oncology and Hematology - [place] [place] [address] Nicholas Gibson MD 07/11/2024 Telephone [facility] Oncology and Hematology - [place] [address] [place] [address] Nicholas Gibson MD Medication Review 07/06/2024 Refill [facility] Oncology and Hematology - [place] [address] [place] [address] Nicholas Gibson MD 06/13/2024 9:45 AM PIPE BOWLS PAINT TRIMMER Office Visit [facility] Oncology and Hematology - [place] [address] [place] [address] Nicholas Gibson MD CLL (chronic lymphocytic leukemia) (CMS/HCC) (Primary Dx) 06/13/2024 Orders Only [facility] Oncology and Hematology - [place] [address] Nicholas Gibson MD 06/13/2024 Telephone [facility] Oncology and Hematology - [place] [address] [place] [address] Nicholas Gibson MD Medication Review 06/12/2024 Orders Only [facility] Oncology and Hematology - [place] [address] [place] [address] Nicholas Gibson MD from Last 3 Months [...] Sign Reading Time Taken Comments Blood Pressure 107/65 08/23/2024 2:42 PM PIPE BOWLS PAINT TRIMMER Pulse 65 08/23/2024 2:42 PM PIPE BOWLS PAINT TRIMMER Temperature 36.7 C (98.1 F) 08/23/2024 2:42 PM PIPE BOWLS PAINT TRIMMER Respiratory Rate 14 08/23/2024 2:42 PM PIPE BOWLS PAINT TRIMMER Oxygen Saturation 95% 08/23/2024 2:4 2 PM PIPE BOWLS PAINT TRIMMER Inhaled Oxygen Concentration - - Weight 44.4 kg (97 lb 12.8 oz) 08/23/2024 2:42 PM PIPE BOWLS PAINT TRIMMER Patient stated that she has no appetite so shes been losing weight Height 147.3 cm (4' 10 ) 10/06/2023 12: 32 PM CDT Body Mass Index 20.44 10/06/2023 12:32 PM CDT Plan of Treatment Upcoming Encounters Date Type Department Care Team (Late st Contact Info) Description 10/26/2024 1:00 PM CDT Office Visit [facility] Oncology and Hematology - [place] [place] [address] Nicholas Gibson MD [address] [facility] [address] [place] [address] Health Maintenance Due Date Last Done Comments DTAP/TDAP/TD VACCINES (1 - Tdap) 09[birth year]16/1954 PNEUMOCOCCAL VACCINE 50+ YEARS (1 of 2 - PCV) 09/16/18 55 ZOSTER VACCINE (1 of 2) 09/16/1954 OSTEOPOROSIS SCREENING 09/16/2000 RSV VACCINE (60+ or ) (1 - 1-dose 75+ series) 09/16/2010 INFLUENZA VACCINE (#1) 2024 [place] Prev entative Visit/Annual Wellness Visit 06/28/2024 Procedures Procedure Name Priority Date/Time Associated Diagnosis Comments CBC WITH AUTODIFFERENTIAL Routine 2024 1:02 PM PIPE BOWLS PAINT TRIMMER CBC WITH AUTODIFFERENTIAL Routine 2024 2:09 PM PIPE BOWLS PAINT TRIMMER BASIC METABOLIC PANEL Routine 07/14/2024 3:16 PM PIPE BOWLS PAINT TRIMMER CBC WITH DIFFERENTIAL Routine 07/14/2024 12:58 PM PIPE BOWLS PAINT TRIMMER from Last 3 Months Results * CBC WITH AUTODIFFERENTIAL (08/16/2024 1:02 PM PIPE BOWLS PAINT TRIMMER) Only the most recent of2 resultswithin the time period is included. Blood Nicholas Gibson MD HEMATOLOGY ORDERABLES Final Res ult * BASIC METABOLIC PANEL (07/14/2024 3:16 PM PIPE BOWLS PAINT TRIMMER) Blood Nicholas Gibson MD CHEMISTRY ORDERABLES Final Resu lt * CBC WITH DIFFERENTIAL (07/14/2024 12:58 PM PIPE BOWLS PAINT TRIMMER) Blood Nicholas Gibson MD HEMATOLOGY ORDERABLES Final Res ult from Last 3 Months Insurance AETNA PPO MCR AETNA PPO MCR RX AETNA Medicare Part D Care Teams Camp Nurse Relationship Specialty Start Date End Date Eliseo Waters DO [address] [address] PCP - General Internal Medicine 03/24/24
--- OUTSIDE RECORDS SUMMARY | 2024-09-08 07:50 | XMS_ITS | Clinical Summary ---
Author Organization [facility] [address] Address [address] [place] [address] Care Team Providers Care Welding Machine Operator Electro Gas Name Role Phone Eliseo Waters DO Primary Care Provider +1- [phone] Allergies No known active allergies Medications ferrous sulfate (FeroSuL) 325 mg (65 mg of elemental iron) tablet 1 tablet DAILY (route: oral) 12/08/19 23 Active ascorbic acid (VITAMIN C) 100 mg [...] d, po solid 400 unit TabletPOdailyCurrent Medication 08/08/19 15 Active folic acid (FOLVITE) 800 mcg tablet 08/08/2014Folic acid, po solid 0.8 mg TabletPOdailyCurrent Medication 08/08/19 15 Active HYDROcodone-a cetaminophen (NORCO) 5-325 mg per tablet Take by mouth every 6 (six) hours as needed Act debby lisinopriL (PRINIVIL,ZES TRIL) 5 mg tablet 08/08/2014Lisinopril, po solid 5 mg TabletPOdailyCurrent Medication 08/08/19 15 Active oxyBUTYnin XL (DITROPAN-XL) 5 mg 24 hr tablet Take 1 tablet (5 mg total) by mouth daily Act debby traMADoL (ULTRAM) 50 mg tablet Take 1 tablet (50 mg total) by mouth every 8 (eight) hours as needed for pain for up to 7 days 21 tablet 03/16/20 24 Active metoprolol tartrate (LOPRESSOR) 25 mg immediate release tablet TAKE 1 TABLET(25 MG) BY MOUTH TWICE DAILY 180 tablet 07/10/19 25 Active Eliquis 2.5 mg tablet Take 1 tablet (2.5 mg total) by mouth 2 (two) times a day 180 tablet 3 07/31/19 25 Active Active Problems Problem Noted Date Diagnosed Date Chronic anticoagulation 09/16/2023 Nonrheumatic aortic valve stenosis 09/16/2023 Paroxysmal atrial fibrillation 06/02/2023 Nonrheumatic mitral valve regurgitation 06/02/20 23 Nonrheumatic tricuspid valve regurgitation 06/02 Hospital discharge follow-up 06/02/2023 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 Leukemia 01/15/2021 CLL (chronic lymphocytic leukemia) 08/08/2014 Encounters Date Type Department Care Team Description 07/31/2024 Telephone [facility] Medical Group Cardiology [address] [facility] [address] [place] [address] Aldo Morelos MD Med Refill 07/17/2024 8:00 AM WIRE INSERTER - 07/17/2024 11:59 PM WIRE INSERTER [place] [address] Discharge Disposition: Discharge to home or self [...] on file Legal Sex Female 11:42 PM WIRE INSERTER Gender Identity Not on file Sexual Orientation [...] SURGICAL PATHOLOGY Routine 07/17/2024 9: 46 AM WIRE INSERTER from Last 3 Months Results * Surgical pathology (07/17/2024 9:46 AM WIRE INSERTER) Bone - Biopsy / Curettings 07/17/2024 9:46 AM WIRE INSERTER 07/18/2024 9:46 AM WIRE INSERTER Narrative 07/19/2024 10:43 PM WIRE INSERTER EPIC results best viewed via link to PDF [facility] Department of Pathology [address] [place] [address] Note to Patients: This report may [...] with Addendum Patient Name: SANDRA FORD Address: [address] [place] [address] Gender: F : 1935 (Age: 88) Service: Location: [facility] #: [id number] Patient Type: SPECIMEN Taken: 07/17/2024 Received: 07/18/2024 [...] Comment The external consult report from [facility] ([id number]) has been finalized and is attached. For the system consultant s comment, please see scanned image of report or the report can be viewed in the Electronic Medical Record of the patient. If access to the EMR is not available, please call pathology for a hard copy of the report ([phone]). 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 See [...] determined by the Surgical Pathology Department at [facility] as part of an ongoing assistant quality manager program and in compliance with federally [...] characteristics determined by the Surgical Pathology Department [facility]. It has not been cleared or approved by the U. S. Food and Drug Administration. Note for decalcified specimens: This assay has not been validated on decalcified tissues. Results should be interpreted with caution given the possibility of false negativity on decalcified specimens us Nichole Velazquez MD LAB PATHOLOGY ORDERABLES F inal Result from Last 3 Months Insurance AETNA MEDICARE Care Teams Welding Machine Operator Electro Gas Relationship Specialty Start Date End Date Eliseo Waters DO PCP - General Internal Medicine 09/16/23
--- OUTSIDE RECORDS SUMMARY | 2024-09-08 07:50 | XMS_ITS | Referral Summary ---
Author Organization [facility] [address] Address [address] [place] [address] Care Team Providers Care Film Color Tester Name Role Phone Eliseo Waters DO Primary Care Provider +1- [phone] Encounters Date Type Department Care Team Description 07/31/2024 Telephone [facility] Medical Group Cardiology [address] [place] [address] Aldo Morelos MD Med Refill 07/17/2024 8:00 AM SUPERVISOR WET END - 07/17/2024 11:59 PM SUPERVISOR WET END Hospital Encounter [address] [address] Discharge Disposition: Discharge to home or self [...] on file Legal Sex Female 11:42 PM SUPERVISOR WET END Gender Identity Not on file Sexual Orientation [...] SURGICAL PATHOLOGY Routine 07/17/2024 9: 46 AM SUPERVISOR WET END from Last 3 Months Results * Surgical pathology (07/17/2024 9:46 AM SUPERVISOR WET END) Bone - Biopsy / Curettings 07/17/2024 9:46 AM SUPERVISOR WET END 07/18/2024 9:46 AM SUPERVISOR WET END Narrative 07/19/2024 10:43 PM SUPERVISOR WET END EPIC results best viewed via link to PDF [facility] Department of Pathology [address] [place] [address] Note to Patients: This report may [...] with Addendum Patient Name: SANDRA FORD Address: [address] [place] [address] Gender: F : 1935 (Age: 88) Service: Location: [facility] : [id number] [facility] #: [id number] Patient Type: SPECIMEN Taken: 07/17/2024 Received: 07/18/2024 [...] Addendum Comment The external consult report from [facility] ([id number]) has been finalized and is attached. For the medical social consultant s comment, please see scanned image of report or the report can be viewed in the Electronic Medical Record of the patient. If access to the EMR is not available, please call pathology for a hard copy of the report ([phone]). 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 See [...] decalcified.. All in B. T.A. Chayito Hernandez, P.Sandra./Trice Harvey M.D. REPORT IMAGES AND SCANNED DOCUMENTS, IF INCLUDED, ONLY VIEWABLE IN PDF VERSION OF REPORT The performance characteristics of some immunohistochemical stains, fluorescence in-situ hybridization tests and immunophenotyping by flow cytometry cited in this report (if any) were determined by the Surgical Pathology Department at [facility] as part of an ongoing senior quality assurance analyst program and in compliance with federally mandated [...] determined by the Surgical Pathology Department [facility]. It has not been cleared or approved by the U. S. Food and Drug Administration. Note for decalcified specimens: This assay has not been validated on decalcified tissues. Results should be interpreted with caution given the possibility of false negativity on decalcified specimens Nichole Velazquez MD LAB PATHOLOGY ORDERABLES F inal Result from Last 3 Months Insurance [employer] MEDICARE Care Teams Film Color Tester Relationship Specialty Start Date End Date Eliseo Waters DO PCP - General Internal Medicine 09/16/23
--- OUTSIDE RECORDS SUMMARY | 2024-09-08 07:50 | XMS_ITS | Continuity of Care Document ---
Author Organization [facility] Address [address] [place] [address] [place] [address] Phone Care Team Providers Care Moose Hunter Name Role Phone Misha Perdomo Unavailable Unavailable [...] Copied on Encounter Office/outpat ient Visit, Est [facility], [address] [place] [address] [address], [place], [place], [id number], tel:[phone] [facility] No Information Sep-0 9-201 0 Conor [address]ral[address] , [address], [place], [address], [place]. tel:[phone] [facility], [address], [place], [place], [id number], [place] tel:[phone] [facility] No Information Sep-1 0-200 9 Conor Cabral[address] , [address], [place], [address], [place]. tel:[phone] [facility], [address], [place], [place], [id number], [place] tel:[phone] [facility] No Information 3[address] Conor Cabral[address] , [address], [place], [address], [place]. tel:[phone] [facility], [address], [place], [place], [id number], [place] tel:[phone] [facility] No Information 7 Conor Cabral. [address] [facility] , [address], [place], [place], [facility] [place], [place]. tel:[phone] [facility], [address], [place], [place], [id number], [place] tel:[phone] [facility] No Information [address] Conor Cabral[address], [address], [place], [facility] [place], [place]. tel:[phone] [facility], [address], [place], [place], [id number], [place] tel:[phone] [facility] No Information 0 7 Conor Cabral. [address], [address], [place], [facility] [place], [place]. tel:[phone] Office/outpat ient Visit, Est [facility], [address] [place] [address] [address], [place], [place], [id number], [place] tel:[phone] [facility] No Information 7 Con[address]ral. [address] , [address], [place], [facility] [place], [place]. tel:[phone] Referring Provider: Misha Flores, [facility] [address], [place], [address]. tel:[phone] Family History Family Member Type Diagnosis Age At Onset No Information Payers Payer name Insurance type Covered libertarian ID Authoriza tion(s) [place] [id number] Social History Type Description Quantity Date Captured [...]
--- OUTSIDE RECORDS SUMMARY | 2024-09-08 07:50 | XMS_ITS | Data Portability ---
Author Organization [place] [facility], Main Office Address [address] [place] [address] Assessment No assessment recorded. Plan of Treatment [...] bingham am No observ ation record ed. [id number] _[facility]_[address], [place], [address], 08/26/2022 23:11:14 02/20/20 21 01/15/2021 elect kaylan bingham am No observ ation record ed. [id number] _[address], [place], [address], 08/26/2022 23:11:14 04/14/20 22 XR, lumbo sacra l spine , 2 or 3 view [facility] [address] [facility] [place] [address] Fernando t Name: SANDRA FORD Access ion #: [id number] Sex: F : 1935 4 Locati [...] t Name: SANDRA FORD Access ion #: [id number] Sex: F : 1935 4 Exam [...] 9:14 AM (CT) Page 2 of 2 [id number].[id number] [facility] (Imaging) [address] [place] [address], [address], 08/26/2022 23:11:14 04/14/20 22 04/14/2022 XR, lumbo sacra l spine , 2 or 3 view No observ ation record ed. [id number] [facility] [address] , [place], [address], 08/26/2022 23:11:14 06/15/20 22 06/15/2022 imagi ng/di agnos tic resul t No observ ation record ed. [id number] [place] [address] [address], [place], [address], 08/26/2022 23:11:14 06/15/20 22 06/15/2022 imagi ng/di agnos tic resul t No observ ation record ed. [id number] [place] [address] [address], [place], [address], 08/26/2022 23:11:14 06/23/20 22 06/23/2022 CT, abdom en + pelvi s, w/ contr ast No observ ation record ed. [id number].[id number] [place] [address], [place], [address], 08/26/2022 23:11:14 07/31/19 23 07/31/2022 CT, abdom en + pelvi s, w/ contr ast No observ ation record ed. [id number] [place] [address] [address], [place], [address], 08/26/2022 23:11:14 04/02/20 23 04/02/2023 XR, wrist , 3 or more view No observ ation record ed. [address], [place], [address], 04/05/2023 10:20:44 04/02/20 23 04/02/2023 XR, hip, bilat eral, 2 view No observ ation record ed. [address], [place], [address], 04/05/2023 10:22:37 04/02/20 23 04/02/2023 XR, femur , 2 or more view No observ ation record ed. [address], [place], [address], 04/05/2023 10:23:23 04/03/2004/03/2023 CT, hip, w/o contr ast No observ ation record ed. [address], [place], [address], 04/05/2023 10:24:12 04/03/2004/03/2023 XR, chest , 2 view No observ ation record ed. [address], [place], [address], 04/05/2023 10:25:09 04/05/20 23 04/05/2023 stres s echoc ardio gram No observ ation record ed. [address], [place], [address], 04/05/2023 15:52:26 04/05/2004/05/2023 XR, shoul maxim No observ ation record ed. [address], [place], [address], 04/05/2023 15:52:39 Result Notes None recorded. 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 Procedures Surgical History Date Name Laterality Status Provider Name and Address Organization Details Recorded Time Cataract Surgery completed Not Available [facility] 08/26/2022 23:06:17 cardiac catheterization completed Not Available [facility] 08/26/2022 23:06:17 colonoscopy completed Not Available [facility] 08/26/2022 23:06:17 dacryocystotomy completed Not Available [facility] 08/26/2022 23:06:17 Hysterectomy completed Not Available [facility] 08/26/2022 23:06:17 Cholecystectomy completed Not Available [facility] 08/26/2022 23:06:17 Imaging Results Imaging Date Name Status LastModified by Organization Details LastModified Time 06/23/2022 CT, abdomen + pelvis, w/ contrast completed [id number] [address] [address], [place], [address], 08/26/2022 23:11:14 06/15/2022 imaging/diagnostic result completed MIGRATION.[id number] [place] [address], [place], [address], 08/26/2022 23:11:14 06/15/2022 imaging/diagnostic result completed MIGRATION.[id number] [place] [address], [place], [address], 08/26/2022 23:11:14 07/31/2022 CT, abdomen + pelvis, w/ contrast completed [id number] [facility] [address], [place], [address], 08/26/2022 23:11:14 01/16/2021 electrocardiogram completed MIGRATION. [id number] [facility] [address], [place], [address], 08/26/2022 23:11:14 01/15/2021 electrocardiogram completed MIGRATION. [id number] [facility] , [address], [place], [address], 08/26/2022 23:11:14 04/14/2022 XR, lumbosacral spine, 2 or 3 view completed MIGRATION.[id number] [facility] ([facility]) [address] [facility], [place], [address], 08/26/2022 23:11:14 04/14/2022 XR, lumbosacral spine, 2 or 3 view completed MIGRATION.[id number], [place], [address], 08/26/2022 23:11:14 04/02/2023 XR, wrist, 3 or more view completed [address], [address], 04/05/2023 10:20:44 04/02/2023 XR, hip, bilateral, 2 view [address], [address], 04/05/2023 10:22:37 04/02/2023 XR, femur, 2 or more view completed [address], [address], 04/05/2023 10:23:23 04/03/2023 CT, hip, w/o contrast completed [address], [address], 04/05/2023 10:24:12 04/03/2023 XR, chest, 2 view completed [address], [address], 04/05/2023 10:25:09 04/05/2023 stress echocardiogram completed [address], [address], 04/05/2023 15:52:26 04/05/2023 XR, shoulder completed [id number], [place], [address], 04/05/2023 15:52:39 Procedure Notes None recorded. Medical [...] % 96 % 84 /min 97.3 [degF] 41705.7 9 g 116 mm[Hg] 76 mm[Hg] Not Available [facility] 3 23:08:21 Date Recorded Body mass index (BMI) Body height Oxygen saturation Oxygen saturation in Arterial blood by Pulse oximetry Heart rate Body temperature Body weight Systolic blood pressure Diastolic blood pressure Provider Name and Address Organization Details Last Updated DateTime 2 27.4 kg/m2 147.32 cm 98 % 98 % 113 /min 97.3 [degF] 61649.6 g 144 mm[Hg] 90 mm[Hg] Not Available [facility] 3 23:08:21 Date Recorded Body height Body mass index (BMI) Body weight Body temperature Heart rate Oxygen saturation Oxygen saturation in Arterial blood by Pulse oximetry Systolic blood pressure Diastolic blood pressure Provider Name and Address Organization Details Last Updated DateTime 3 147.32 cm 26.1 kg/m2 68902.0 5 g 98.7 [degF] 103 /min 98 % 98 % 130 mm[Hg] 80 mm[Hg] AMRIELA Mckeon [place] [facility] [employer] 3 10:07:40 Social History Question Answer Notes LastModified by Organizat ion Details LastModified Time Tobacco Smoking Status Never Smoker Not Available [facility] 08/26/2022 23:06:07 What Is Your Level Of Alcohol Consumption? None [id number] Information not available 08/26/2022 In The 14 Days Before Symptom Onset, Have You Had Close Contact With A Laboratory-confirm ed COVID-19 While That Case Was Ill? No [id number] Information not available 08/26/2022 In The 14 Days Before Symptom Onset, Have You Had Close Contact With A Person Who Is Under Investigation For COVID-19 While That Person Was Ill? No [id number] Information not available 08/26/2022 Sex: Unknown Functional Status None recorded. Mental Status None recorded. Family History Relationship Description Onset Age of this Age Resolved Age Notes LastModified by Organization Details LastModified Time Father Calcificatio n of lung [id number] Not available 08/26/2022 23:06:23 Father Malignant tumor of lung [id number] Not available 08/26/2022 23:06:23 Mother Aneurysm [id number] Not available 08/26/2022 23:06:23 Medical History Condition [...] HAVE YOU BEEN HOSPITALIZED OR SEEN IN [facility] IN THE PAST YEAR ? 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 Chronic ly mphoid leukemia, disease 02707000 C91.10 F/u with oncologist /hematolog ist Health Concerns Section Related Observation LastModified by Organization Detai ls LastModified Time None Recorded Concern Status LastModified by Organization Details LastModified Time None Recorded Advance Directives Directive None Recorded Payers Encounter Date Sequence Insurance Name Policy Number Policy Lua Covered Member ID Lua Member ID Guarantor Name 10/14/2022 1 [employer] (MEDICARE REPLACEMENT PPO) [id number] Sandra Ford [id number] Sandra Ford Notes Date Note Type Note [...] vaginal discharge very slight. Georgette Campuzano MD [address] [place] [address] [address], [place], [address], [facility] 10/14/2022 10:45:32 OBGyn Episode No OBEpisode recorded.
== END 2024-09-08 07:46 | disposition home or self-care (01) ==
PROVIDERS: PCP Internal Medicine; Visit Provider Internal Medicine
DX: R41.3 Other amnesia (principal); R41.82 Altered mental status, unspecified
CPT/HCPCS: 70551

== ENCOUNTER 2024-09-12 10:32 | Outpatient (CLI) | payer MEDICARE, SELFPAY ==
--- NOTE | ~2024-09-12 | CT_ITS ---
CT of the Abdomen and Pelvis: Indication: Diverticulitis Technique: 2.5 mm axial scans were obtained through the abdomen and pelvis following intravenous adm inistration of 100 cc of Omnipaque 350. Dose reduction technique was used on this scan by utilizing a utomated exposure control and iterative reconstruction technique. The dose-length product (DLP) was 3 29.45 mGy-cm. COMPARISON: 07/20/2024 Findings: Scans through the lung bases are unremarkable. The liver, spleen, pancreas, adrenals and kidneys are within normal limits. Cholecystectomy clips are present. There are atherosclerotic calcifications of the aorta. No lymphadenopathy. There is mild wall thickening of the distal sigmoid colon/rectum. Probable small intramural abscess a gain present, measuring 1.7 cm in diameter (coronal image 71). Images through the pelvis were performed. Urinary bladder unremarkable. Status post hysterectomy. No ascites. T10 vertebroplasty noted. There is extensive degenerative change in the spine. Impression: Probable mild diverticulitis, as above, with 1.7 cm intramural abscess. Reviewed, dictated and finalized at [facility]. Impression: Probable mild diverticulitis, as above, with 1.7 cm intramural abscess.
[2024-09-12 10:50] LABS: Estimated Glomerular Filt Rate 52
== END 2024-09-12 10:33 | disposition home or self-care (01) ==
LOC: MICIMG 10:32
PROVIDERS: PCP Internal Medicine; Visit Provider Surgery
DX: K57.80 Diverticulitis of intestine, part unspecified, with perforation and abscess without bleeding (principal); N82.4 Other female intestinal-genital tract fistulae
CPT/HCPCS: 74177; Q9967

== ENCOUNTER 2024-10-02 12:45 | Outpatient (CLI) | payer MEDICARE, SELFPAY ==
--- NOTE | ~2024-10-02 | CT_ITS ---
CT of the Abdomen and Pelvis: Indication: Diverticulitis Technique: 2.5 mm axial scans were obtained through the abdomen and pelvis following intravenous adm inistration of 100 cc of Omnipaque 350. Dose reduction technique was used on this scan by utilizing a utomated exposure control and iterative reconstruction technique. The dose-length product (DLP) was 2 03.70 mGy-cm. COMPARISON: 09/12/2024 Findings: Scans through the lung bases are unremarkable. The liver, spleen, pancreas, adrenals and kidneys are within normal limits. Cholecystectomy clips are present. There are atherosclerotic calcifications of the aorta. No lymphadenopathy. There is wall thickening and inflammatory change of the distal sigmoid colon/proximal rectum. Possibl e small intramural abscess present, similar to prior exam, measuring approximately 2.2 cm (axial imag e 128). No free air evident. No bowel obstruction. Images through the pelvis were performed. Probable mild urinary bladder wall thickening. No pelvic ma ss seen. Vertebroplasty noted at T8 and T10. Moderate compression fracture T9 present. Extensive degenerative spondylosis of the spine present. Impression: Distal sigmoid diverticulitis with intramural abscess, very similar to prior exam. Stable compression fractures in the spine, as above. Questionable cystitis. Reviewed, dictated and finalized at location . Impression: Distal sigmoid diverticulitis with intramural abscess, very similar to prior ex am. Stable compression fractures in the spine, as above. Questionable cystitis.
--- OUTSIDE RECORDS SUMMARY | 2024-10-02 14:23 | XMS_ITS | Continuity of Care Document ---
Author Organization [facility] Address [id number] [place] [address] [place] [address] Phone Care Team Providers Care Mining Speculator Name Role Phone Misha Perdomo Unavailable Unavailable [...] Copied on Encounter Office/outpat ient Visit, Est [facility], [address] [place] [address] [address], [place], [place], [id number], tel:[phone] [facility] No Information Sep-0 9-201 0 Conor Cabral. [address] , [address], [place], [address], [place]. tel:[phone] [facility], [address], [place], [place], [id number], [place] tel:[phone] [facility] No Information Sep-1 0-200 9 Conor Cabral. [address] , [address], [place], [address], [place]. tel:[phone] [facility], [address], [place], [place], [id number], [place] tel:[phone] [facility] No Information 3200 8 Conor Cabral. [address] , [address], [place], [address], [place]. tel:[phone] [facility], [address], [place], [place], [id number], [place] tel:[phone] [facility] No Information 7 Conor Cabral. [address] , [address], [place], [place], [facility], [place]. tel:[phone] [facility], [address], [place], [place], [id number], [place] tel:[phone] [facility] No Information 1200 7 Conor Cabral. [address], [place], [facility], [place]. tel:[phone] [facility], [address], [place], [place], [id number], [place] tel:[phone] [facility] No Information 0 7 Conor Cabral. [address], [place], [facility], [place]. tel:[phone] Office/outpat ient Visit, Est [facility], [id number] [place] [address] [address], [place], [place], [id number], [place] tel:[phone] [facility] No Information 7 Conor Cabral. [address] , [address], [place], [facility], [place]. tel:[phone] Referring Provider: Misha Flores, [facility] [address], [place], [address]. tel:[phone] Family History Family Member Type Diagnosis Age At Onset No Information Payers Payer name Insurance type Covered constitution party ID Authoriza tion(s) [place] [id number] Social History Type Description Quantity Date Captured [...]
--- OUTSIDE RECORDS SUMMARY | 2024-10-02 14:24 | XMS_ITS | Referral Summary ---
Author Organization [facility] [place] [address] Address [address] [place] [address] Care Team Providers Care [employer] Senior Officer Name Role Phone Eliseo Waters DO Primary Care Provider [phone]- [phone] Encounters Date Type Department Care Team Description 09/11/2024 Results Follow-Up [facility] Emergency Department [address] [place] [address] Sharon Regalado PA 09/08/2024 12:27 PM CDT - 09/08/2024 4:41 PM CDT Emergency [facility] Emergency Department [address] [place] [address] Idalmis Chapin MD Heilmann, Adam David, MD Bacteriuria, asymptomatic (Primary Dx) Discharge Disposition: Discharge to home or self care 07/31/2024 Telephone [facility] Cardiology [address] [place] [address] Aldo Morelos MD Med Refill 07/17/2024 8:00 AM COMPOSITE MECHANIC - 07/17/2024 11:59 PM COMPOSITE MECHANIC Hospital Encounter [address] [address] Discharge Disposition: Discharge to home or self [...] to 7 days 21 tablet 024 Active Eliquis 2.5 mg tablet Take 1 tablet (2.5 mg total) by mouth 2 (two) times a day 180 tablet 3 025 Active metoprolol tartrate (LOPRESSOR) 25 mg immediate release tablet TAKE 1 TABLET(25 MG) BY MOUTH TWICE DAILY 180 tablet 1 025 Active metoprolol tartrate (LOPRESSOR) 25 mg immediate release tablet TAKE 1 TABLET(25 MG) BY MOUTH TWICE DAILY 180 tablet 025 09/26 Discontinued Active Problems Problem Noted Date Diagnosed Date Asymptomatic bacteriuria 09/08/2024 Assessment & Plan (09/08/2024 4:20 PM CDT): UA was faxed to the ED Urine cultures from 09/05 growing 2 organisms 1-vanco resistant enterococcus fecium : >100,000 CFU/ml -- resistant to ampicllin ,vanco, intermediate to nitrofurantoin 2-enterobacter cloacae complex: 10,000-49,000 CFU/ml --susceptible to cipro , levo, genta, imipenem,aristeo. -currently no symptoms , afebrile , leukocytosis in CLL. #Asymptomatic bacteriuria , possible contamination from fecal material. I tried to reach out to both her PCP and oncologist with the daughter bedside,unfortunately they were unavailable. The case was discussed with ID attending , and she agrees that medically does not need treatment on the absence of symptoms. -patient does not need treatment currently. She can be discharged home. I already talked with the daughter bedside and she agrees to the current plan , that her mother also prefers to go home. I also explained given her fistula she can be at risk of developing UTI. She verbalized understanding. She previously declined surgery. 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 Denies 09/08/2024 Comments No Sex and Gender Information Value Date Recorded Sex Assigned at Not on file Legal Sex Female 11:42 PM COMPOSITE MECHANIC Gender Identity Not on file Sexual Orientation Not on file Last Filed Vital Signs Vital Sign Reading Time Taken Comments Blood Pressure 103/79 09/08/2024 4:00 PM CDT Pulse 76 09/08/2024 4:00 PM CDT Temperature 37.1 C (98.8 F) 09/08/2024 12:20 PM CDT Respiratory Rate 18 09/08/2024 4:00 PM CDT Oxygen Saturation 95% 09/08/2024 4:00 PM CDT Inhaled Oxygen Concentration - - Weight 44.5 kg (98 lb) 09/08/2024 12:20 PM CDT Height 142.2 cm (4' 8 ) 09/08/2024 12:20 PM CDT Body Mass Index 21.97 09/08/2024 12:20 PM CDT Plan of Treatment Not on file Procedures Procedure Name Priority Date/Time Associated Diagnosis Comments URINALYSIS, MICROSCOPIC ONLY STAT 09/08/2024 1:56 PM CDT URINE CULTURE STAT 09/08/2024 1:56 PM CDT URINALYSIS AND REFLEX TO MICROSCOPIC AND CULTURE STAT 09/08/2024 1:56 PM CDT MANUAL DIFFERENTIAL STAT 09/08/2024 1 2:30 PM CDT EGFR STAT 09/08/2024 12:30 PM CDT COMPREHENSIVE METABOLIC PANEL STAT 09/08/2024 12:30 PM CDT CBC WITH AUTO DIFFERENTIAL STAT 09/08/2024 12:30 PM CDT SURGICAL PATHOLOGY Routine 07/17/2024 9: 46 AM COMPOSITE MECHANIC from Last 3 Months Results * (ABNORMAL) Urinalysis reflex to microscopic and culture Urine (09/08/2024 1:56 PM CDT) Color, ur Kimberly Yellow Clarity, ur Turbid(A) Clear [facility] Specific gravity, ur >1.030(H) 1.003 - 1.030 CERMARY CARMEN [facility] pH, urine 6.0 [facility] CARMEN [facility] Comment: Interpretive Data U rine pH is affected by diet, medications, systemic acid-base disturbances, and renal tubular function. pH may affect urinary stone formation. For example, urine pH below 6.0 may help reduce the tendency for calcium phosphate stones and pH greater than 6.0 may reduce the tendency for uric acid stone formation. Source: [facility] Current Interpretive Data was last revised on 2017 Protein, ur ql 2+(A) Negative [facility] Glucose, ur ql Negative Negative [facility] Ketones, ur Trace Negative [facility] Bilirubin, ur Negative Negative [facility] Blood, ur 2+(A) Negative [facility] Urobilinogen, ur <2.0 <2.0 mg/dL [facility] Nitrite, ur Negative Negative [facility] Leukocyte esterase, ur 4+(A) Negative [facility] UA reflex comment Reflex to microscopic UA will be performed. [facility] Urine 09/08/2024 1:56 PM CDT 09/08/2024 1:59 PM CDT Idalmis Chapin MD LAB MICROBIOLOGY - GENERAL ORDERABLES Final Result Performing Organization Address [facility] de Phone Number ADITYA CASTELLON [address] [facility] [place] [address] * (ABNORMAL) Urinalysis, microscopic only (09/08/2024 1:56 PM CDT) WBC, ur >50(A) 0 - 5 /HPF RBC, ur 21-50(A) 0 - 2 /HPF [facility] Epithelial cells, squamous, ur 11-20(A) 0 - 5 /HPF [facility] Mucous, ur Present(A) [facility] Culture Reflex Comment Reflex to urine culture will be performed. [facility] Urine 09/08/2024 1:56 PM CDT 09/08/2024 1:59 PM CDT Idalmis Chapin MD LAB URINE ORDERABLES Final Result Performing Organization Address [facility] de Phone Number ADITYA BERNABECH [address] [facility] [employer] [place], [place] [id number] * (ABNORMAL) Urine culture Urine (09/08/2024 1:56 PM CDT) Report Final Report: Greater than or equal to 100,000 colonies/ml of Enterococcus faecium (.) Comment:Testing performed by : [facility], [facility], [place]., [address] Organism ENTEROCOCCUS FAECIUM ADITYA [facility] Urine 09/08/2024 1:56 PM CDT 09/08/2024 4:49 PM CDT Narrative ADITYA CASTELLONCH - 09/11/2024 7:41 AM CDT Urine culture reflexed based upon urinalysis results. Organism Antibiotic Method Susceptibility Enterococcus faecium Ampicillin (DENIS) INTERPRETATION Resistant Enterococcus faecium Linezolid (DENIS) INTERPRETATION Susceptible Enterococcus faecium Nitrofurantoin (DENIS) INTERPRETATI ON Intermediate Enterococcus faecium Tetracycline (DENIS) INTERPRETATION Resistant Enterococcus faecium Vancomycin (DENIS) INTERPRETATION Resistant Lj Oconnor MD LAB MICROBIOLOGY - GENERA L ORDERABLES Final Result ADITYA BERNABEWCH [address] [facility] Department [place] [address] * (ABNORMAL) eGFR (09/08/2024 12:30 PM CDT) eGFR 48(L) >=60 mL/min/1. 73 m2 Comment: Interpretive Data Reference Interval Normal >/= 90 mL/min/1.73m2 Mildly decreased* 60 - 89 mL/min/1.73m2 Mildly to moderately decreased 45 - 59 mL/min/1.73m2 Moderately to severely decreased 30 - 44 mL/min/1.73m2 Severely decreased 15 - 29 mL/min/1.73m2 Kidney Failure < 15 mL/min/1.73m2 *Relative to young adult level Estimated glomerular filtration rate is determined by the 2020 CKD-EPI equation recommended by the National Kidney Foundation (A Unifying Approach to GFR Estimation: Recommendations of the NKF-ASK Task Force on Reassessing the Inclusion of Race in Diagnosing Kidney Disease, JASN 2020). The CKD-EPI equation should not be used for patients with unstable renal function and has not been validated in children and those over 70. Current interpretive data was last reviewed 2021. Blood 09/08/2024 12:3 0 PM CDT 09/08/2024 12:30 PM CDT Idalmis Chapin MD LAB BLOOD ORDERABLES Final Result ADITYA PACHECO [address] [facility] [place] [address] * (ABNORMAL) CBC with auto differential (09/08/2024 12:30 PM CDT) [facility] WBC 117.8(C) 3.8 - 9.9 K/cumm Comment:Critical result call ed to and read back by MARIBEL CA RN on 09 08 2024 at 1311 [facility]. Hgb 11.4(L) 11.9 - 15.5 g/dL [facility] Hct 37.6 35.6 - 45.5 % [facility] Plt 248 150 - 400 K/cumm [facility] MPV 10.9 9.1 - 12.3 fL [facility] RBC 3.78(L) 3.90 - 5.20 M/cumm [facility] MCV 99.5(H) 81.3 - 96.[address] MCH 30.2 27.1 - 33.[address] MCHC 30.3(L) 32.3 - 35.7 g/dL [facility] RDW CV 18.1(H) 11.1 - 14.9 % [facility] RDW SD 61.5(H) 35.7 - 48.1 fL [facility] NRBC abs 0.00 0.00 - 0.01 K/cumm [facility] Blood Venous blood specimen / Unknown 09/08/2024 12:30 PM CDT 09/08/2024 12:30 PM CDT Idalmis Chapin MD LAB BLOOD ORDERABLES Final Result Performing Organization Address City/[facility]/ZIP Co de Phone Number ADITYA PACHECO [address] Department [place] [address] * (ABNORMAL) Manual Differential (09/08/2024 12:30 PM CDT) Pathologist [facility] Differential Manual Cells Counted 100 [facility] Neutrophil abs 3.5 1.5 - 6.5 K/cumm [facility] Lymphocyte abs 113.1(H) 0.8 - 3.3 K/cumm C[facility]ER W Monocyte abs 0.0(L) 0.2 - 0.8 K/cumm CERNER W Basophil abs 1.2(H) 0.0 - 0.1 K/cumm [facility] Neutrophil pct 3.0 % [facility] Comment: Interpretive Data Percent cell count reference ranges are not reported, since discordance with absolute values may lead to misinterpretation of CBC data. Current Interpretive Data was last revised on 2017. Lymphocyte pct 96.0 % [facility]A [facility] Comment: Interpretive Data Percent cell count reference ranges are not reported, since discordance with absolute values may lead to misinterpretation of CBC data. Current Interpretive Data was last revised on 2017. Basophil pct 1.0 % [facility] Comment: Interpretive Data Percent cell count reference ranges are not reported, since discordance with absolute values may lead to misinterpretation of CBC data. Current Interpretive Data was last revised on 2017. RBC morphology Normal [facility] Platelet estimate Automated Count Confirmed [facility] Blood 09/08/2024 12:3 0 PM CDT 09/08/2024 12:30 PM CDT Idalmis Chapin MD LAB BLOOD ORDERABLES Final Result [facility] [address] [facility]. Department [place] [address] * (ABNORMAL) Comprehensive metabolic panel (09/08/2024 12:30 PM CDT) [facility] Sodium 137 135 - 145 mmol/L Potassium, pl 4.8 3.3 - 4.9 mmol/L [facility] Chloride 104 97 - 110 mmol/L [facility] CO2 22 22 - 32 mmol/L [facility] Anion gap 12 2 - 15 mmol/L [facility] BUN 17 6 - 25 mg/dL [facility] Creatinine 1.10 0.60 - 1.10 mg/dL [facility] Glucose 132 70 - 199 mg/dL [facility] Comment: Interpretive Data Fasting glucose >/= 126 mg/dl is diagnostic for diabetes. Fasting is defined as no caloric intake for at least 8 hours. Fasting glucose between 100 mg/dl to 125 mg/dl is diagnostic of prediabetes. In a patient with classic symptoms of hyperglycemia or hyperglycemic crisis, a random glucose >/= 200 mg/dl is diagnostic for diabetes. In the absence of unequivocal hyperglycemia, results should be confirmed by repeat testing. The classification and Diagnosis of Diabetes Diabetes Care 2021; 46: S19-S40. Current interpretive data was last revised 2022. Calcium 10.2 8.5 - 10.3 mg/dL [facility] Bilirubin, total 0.8 0.1 - 1.2 mg/dL [facility] Protein, pl 6.4(L) 6.5 - 8.5 g/dL [facility] Albumin 3.9 3.5 - 5.0 g/dL [facility] Alk phos 62 40 - 130 Units/L [facility] ALT 9 7 - 45 Units/L [facility] AST 26 10 - 45 Units/L [facility] Comment:Hemolyzed; result ma y be falsely elevated. Blood 09/08/2024 12:3 0 PM CDT 09/08/2024 12:30 PM CDT Idalmis Chapin MD LAB BLOOD ORDERABLES Final Result ADITYA PACHECO [address] [facility]. Department [place] [address] * Surgical pathology (07/17/2024 9:46 AM COMPOSITE MECHANIC) Bone - Biopsy / Curettings 07/17/2024 9:46 AM COMPOSITE MECHANIC 07/18/2024 9:46 AM COMPOSITE MECHANIC Narrative 07/19/2024 10:43 PM COMPOSITE MECHANIC EPIC results best viewed via link to PDF [facility] Department of Pathology [address] [place] [id number] Note to Patients: This report may [...] with Addendum Patient Name: SANDRA FORD Address: [address] [place] [address] Gender: F : 1935 (Age: 88) Service: Location: N : [id number] Hospital #: [id number] Patient Type: SPECIMEN Taken: 07/17/2024 Received: 07/18/2024 [...] Comment The external consult report from [facility] ([id number]) has been finalized and is attached. For the art consultant s comment, please see scanned image of report or the report can be viewed in the Electronic Medical Record of the patient. If access to the EMR is not available, please call pathology for a hard copy of the report ([phone]). 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 See [...] is submitted in two formalin containers labeled SANRDA FORD . A. The first container is [...] determined by the Surgical Pathology Department at [facility] as part of an ongoing director of quality improvement program and in compliance with federally mandated [...] characteristics determined by the Surgical Pathology Department [facility]. It has not been cleared or approved by the U. S. Food and Drug Administration. Note for decalcified specimens: This assay has not been validated on decalcified tissues. 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
--- OUTSIDE RECORDS SUMMARY | 2024-10-02 14:24 | XMS_ITS | Encounter Summary ---
Author Organization [facility] Healthcare Address [address] [place] [address] Care Team Providers Care Cook Pickled Meat Name Role Phone Eliseo Waters DO Primary Care Provider +1- [phone] Encounter Details Date Type Department Care Team (Late st Contact Info) Description 09/11/2024 Results Follow-Up [facility] Emergency Department [address] [place] [address] Sharon Regalado PA [address] [place] [address] Social History Tobacco Use Types Packs/Day Years Used Date Smoking Tobacco: Never Personal Safety Answer Date Recorded Have you ever been in or are you currently in a harmful physical or emotional relationship or is someone making you feel afraid or unsafe? 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
--- OUTSIDE RECORDS SUMMARY | 2024-10-02 14:24 | XMS_ITS | Clinical Summary ---
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 06-28 00:00: 00 PROSTHETICS ASSISTANT (CURRENT) USE OF ANTIBIOTICS Active 06-28 00:00: 00 PROSTHETICS ASSISTANT (CURRENT) USE OF ANTICOAGULAN TS Active 06-28 00:00: 00 OTHER PROSTHETICS ASSISTANT (CURRENT) DRUG THERAPY Active 06-28 00:00: 00 PERSONAL HISTORY OF URINARY (TRACT) INFECTIONS Active 06-28 00:00: 00 HISTORY OF FALLING [...] 300 mg tablet 07-18 00:00: 00 Yes [id number] HELP WITH SIDE EFFECTS OF BRUKINSA 1 tablet ONCE DAILY 1 tablet ONCE DAILY (route: oral) Med Classific ation: Gout and Hyperuric emia Therapy Brukinsa 80 mg capsule 07-18 00:00: 00 Yes [id number] CANCER 2 capsule TWICE DAILY 2 capsule TWICE DAILY (route: oral) Med Classific ation: Antineopl astics calcium 500 mg (as calcium carbonate 1,250 mg) tablet 07-18 00:00: 00 Yes [id number] SUPPLEMENT 1 tablet ONCE DAILY 1 tablet ONCE DAILY (route: oral) Med Classific ation: Electroly te Balance-N utritiona l Products Dulcolax (bisacodyl) 5 mg tablet,alessio yed release 07-18 00:00: 00 Yes [id number] CONSTIPATIO N 1 tablet ONCE DAILY 1 tablet ONCE DAILY (route: oral) Med Classific ation: Gastroint estinal Therapy Agents Eliquis 2.5 mg tablet 07-18 00:00: 00 Yes [id number] PREVENT CLOTS 1 tablet TWICE DAILY 1 tablet TWICE DAILY (route: oral) Med Classific ation: Hematolog ical Agents hydrocodone 10 mg-acetamin ophen 325 mg tablet 07-18 00:00: 00 09-14 23:59 :00 No [id number] PAIN 1 tablet 3 TIMES DAILY 1 tablet 3 TIMES DAILY (route: oral) Med Classific ation: Analgesic , Anti-infl ammatory or Antipyret ic metoprolol tartrate 25 mg tablet - 00:00: 00 Yes [id number] HYPERTENSIO N 1 tablet TWICE DAILY 1 tablet TWICE DAILY (route: oral) Med Classific ation: Cardiovas cular Therapy Agents Miralax 17 gram/dose oral powder 07-18 00:00: 00 Yes [id number] CONSTIPATIO N Per instruc tions ONCE DAILY Per instructio ns ONCE DAILY (route: oral) Med Classific ation: Gastroint estinal Therapy Agents Vitamin D3 10 mcg (400 unit) tablet 07-18 00:00: 00 Yes [id number] SUPPLEMENT 1 tablet ONCE DAILY 1 tablet ONCE DAILY (route: oral) Med Classific ation: Electroly te Balance-N utritiona l Products acetaminoph en 325 mg capsule 07-28 00:00: 00 Yes [id number] PAIN 2 capsule EVERY 6 HOURS 2 capsule EVERY 6 HOURS (route: oral) Med Classific ation: Analgesic , Anti-infl ammatory or Antipyret ic amoxicillin 875 mg-potassiu m clavulanate 125 mg tablet 08-23 00:00: 00 09-05 23:59 :00 No [id number] DYSURIA 1 tablet TWICE DAILY 1 tablet TWICE DAILY (route: oral) Med Classific ation: Anti-Infe ctive Agents Gemtesa 75 mg tablet 08-18 00:00: 00 Yes [id number] OVERACTIVE BLADDER 1 tablet ONCE DAILY 1 tablet ONCE DAILY (route: oral) Med Classific ation: Genitouri nary Therapy ciprofloxac in 500 mg tablet 09-05 00:00: 00 09-19 23:59 :00 No [id number] COLO/VAGINA L FISTULA AND URINARY TRACT INFECTION 1 tablet TWICE DAILY 1 tablet TWICE DAILY (route: oral) Alternate Route: BY MOUTH. Med Classific ation: Anti-Infe ctive Agents metronidazo le 500 mg tablet 09-05 00:00: 00 09-19 23:59 :00 No [id number] COLO/VAGINA L FISTULA 1 tablet TWICE DAILY 1 tablet TWICE DAILY (route: oral) Alternate Route: BY MOUTH. Med Classific ation: Anti-Infe ctive Agents azelastine 137 mcg (0.1 %) nasal spray 09-17 00:00: 00 Yes [id number] ALLERGIES 1 spray TWICE DAILY 1 spray TWICE DAILY (route: nasal) Alternate Route: NOSTRIL - BOTH. Med Classific ation: Respirato ry Therapy Agents cetirizine 10 mg tablet 09-17 00:00: 00 Yes [id number] ALLERGIES 1 tablet ONCE DAILY 1 tablet ONCE DAILY (route: oral) Med Classific ation: Respirato ry Therapy Agents mecobalamin (vitamin B12) 1,000 mcg chewable tablet 09-17 00:00: 00 Yes [id number] LOW VITAMIN B 1 tablet ONCE DAILY 1 tablet ONCE DAILY (route: oral) Med Classific ation: Electroly te Balance-N utritiona l Products Immunizations Ordered Immunization Name Filled Immunization Name Date Status Comments Refusal Reason INFLUENZA, TIV (INACTIVATED) 2024-07-19 00:00:00 PNEUMOCOCCAL (PPV), PPV 2024-07-19 00:00:00 Vital Signs Vital Name Observation Time Observation Value Commen ts Temperature 2024-09-28 10:57:00.000 97.8 [degF] Temperature 2024-09-28 10:13:00.000 97.8 [degF] Temperature 2024-09-21 14:36:00.000 97.9 [degF] Temperature 2024-09-21 09:13:00.000 98.6 [degF] Pulse 2024-09-28 10:57:00.000 72 /min Pulse 2024-09-28 10:13:00.000 72 /min Pulse 2024-09-21 14:36:00.000 76 /min Pulse 2024-09-21 09:13:00.000 66 /min O2 Saturation (%) 2024-09-28 10:57:00.000 98 % O2 Saturation (%) 2024-09-28 10:13:00.000 98 % O2 Saturation (%) 2024-09-21 14:36:00.000 98 % O2 Saturation (%) 2024-09-21 09:13:00.000 98 % Respirations 2024-09-28 10:57:00.000 18 /min Respirations 2024-09-28 10:13:00.000 18 /min Respirations 2024-09-21 14:36:00.000 18 /min Respirations 2024-09-21 09:13:00.000 16 /min Weight (lbs) 2024-09-28 10:57:00.000 103 [lb_av] Weight (lbs) 2024-09-21 09:21:00.000 103 [lb_av] Systolic Blood Pressure 2024-09-28 10:57:00.000 112 mm [Hg] Systolic Blood Pressure 2024-09-28 10:13:00.000 112 mm [Hg] Systolic Blood Pressure 2024-09-21 14:36:00.000 102 mm [Hg] Systolic Blood Pressure 2024-09-21 09:13:00.000 100 mm [Hg] Diastolic Blood Pressure 2024-09-28 10:57:00.000 68 mm [Hg] Diastolic Blood Pressure 2024-09-28 10:13:00.000 68 mm [Hg] Diastolic Blood Pressure 2024-09-21 14:36:00.000 60 mm [Hg] Diastolic Blood Pressure 2024-09-21 09:13:00.000 62 mm [Hg] Plan of Treatment Planned Activity [...] Test HOME HEALT H NURSE TO INSTRUCT PATIENT/CAREGIVER ABOUT DIVERTICULITIS/DIVERTICULOSIS, SIGNS AND SYMPTOMS OF WARNING SIGNS TO REPORT, AND MANAGEMENT OF THE ILLNESS. [code = HOME HEALTH NURSE TO INSTRUCT PATIENT/CAREGIVER ABOUT DIVERTICULITIS/DIVERTICULOSIS, SIGNS AND SYMPTOMS OF WARNING SIGNS TO REPORT, AND MANAGEMENT OF THE ILLNESS.] Future Scheduled Test HOME HEALT H NURSE WILL ASSESS FOR COMPLICATIONS RELATED TO ANTICOAGULATION USE AND INSTRUCT PATIENT/CAREGIVER ABOUT PRECAUTIONS TO FOLLOW AND SIGNS/SYMPTOMS TO REPORT. [code = HOME HEALTH NURSE WILL ASSESS FOR COMPLICATIONS RELATED TO ANTICOAGULATION USE AND INSTRUCT PATIENT/CAREGIVER ABOUT PRECAUTIONS TO FOLLOW AND SIGNS/SYMPTOMS TO REPORT.] Future Scheduled Test HOME HEALT H NURSE TO INSTRUCT ON URINARY TRACT INFECTION, PREVENTION, SYMPTOMS AND WHEN TO REPORT TO THE AGENCY, PHYSICIAN, OR 911. [code = HOME HEALTH NURSE TO INSTRUCT ON URINARY TRACT INFECTION, PREVENTION, SYMPTOMS AND WHEN TO REPORT TO THE AGENCY, PHYSICIAN, OR 911.] Future Scheduled Test SKILLED NU RSE TO INSTRUCT ON URINARY INCONTINENCE INCLUDING CAUSES AND MANAGEMENT STRATEGIES. [code = SKILLED NURSE TO INSTRUCT ON URINARY INCONTINENCE INCLUDING CAUSES AND MANAGEMENT STRATEGIES.] Future Scheduled Test THE CER TIFYING PHYSICIAN, [...] TO SUPPORT ELIGIBILITY FOR HOME HEALTH SERVICES.] Future Scheduled Test EACH ORDER ED IN-HOME [...] BE CONSULTING ON THE CERTIFIED CARE PLAN: DR. JENELLE MEDEROS, VALERIO COOPER, SOLID WASTE TECHNICIAN; DR. OTIS URRUTIA, DR. CHAD TOLENTINO, DR. AUSTIN AGUSTIN, AND ANYONE COVERING IN THEIR ABSENCE. [code = EACH ORDERED IN-HOME OR TELEHEALTH [...] BE CONSULTING ON THE CERTIFIED CARE PLAN: DR. JENELLE MEDEROS, VALERIO COOPER, SOLID WASTE TECHNICIAN; DR. OTIS URRUTIA, DR. CHAD TOLENTINO, DR. AUSTIN AGUSTIN, AND ANYONE COVERING IN THEIR ABSENCE. ] Goal 2024-07-29 Patient Goal - S OC- 07/19/24: TO GET STRONGER AND FEEL BETTER Goal Patient Goal - S OC- 07/19/24: TO GET STRONGER AND FEEL BETTER MARK- 07/29/24- TO HAVE NO MORE FALLS RECERT 09/14/24: TO REMAIN FREE FROM FALLS, INFECTIONS, AND HOSPITALIZATIONS. TO IMPROVE ENERGY Goal 2024-09-14 Patient Goal - S OC- 07/19/24: TO GET STRONGER AND FEEL BETTER MARK- 07/29/24- TO HAVE NO MORE FALLS Goal Provider Goal - PATIENT/CAREGIVER WILL DEMONSTRATE THE USE OF SYMPTOM LOG AND HOW TO IDENTIFY WHEN TO CALL THE TREATING PROVIDER. Goal Provider Goal - PATIENT/CAREGIVER WILL INDEPENDENTLY VERBALIZE WHAT IS DIVERTICULITIS/DIVERTICULOSIS, HOW TO MANAGE CONDITION, AND WHEN TO REPORT WARNING SIGNS TO A NURSE, PHYSICIAN OR 911. Goal Provider Goal - PATIENT/CAREGIVER WILL VERBALIZE UNDERSTANDING OF ANTICOAGULATION COMPLICATIONS TO REPORT AND PRECAUTIONS TO FOLLOW BY END OF HOME HEALTH SERVICES. Goal Provider Goal - PATIENT/CAREGIVER WILL INDEPENDENTLY VERBALIZE WAYS TO PREVENT A UTI AND VERBALIZE SYMPTOMS TO REPORT TO THE PHYSICIAN BY THE END OF HOME HEALTH SERVICES. Goal Provider Goal - PATIENT/CAREGIVER WILL INDEPENDENTLY DEMONSTRATE STRATEGIES TO MANAGE INCONTINENCE AND PROBLEMS THAT CAN DEVELOP FROM BEING INCONTINENT. Goal Provider Goal - A PLAN OF CARE WILL BE ESTABLISHED THAT MEETS ALL PATIENT'S LONG-TERM NEEDS AND COUNTER SIGNED BY PHYSICIAN. Goal Provider Goal - PATIENT WILL BE FREE OF FALLS AND HOSPITALIZATIONS THROUGHOUT EPISODE OF CARE. PATIENT/CAREGIVER WILL UNDERSTAND AND ADHERE TO ORDERED DIET. PATIENT/CAREGIVER WILL INDEPENDENTLY MANAGE MEDICATIONS, UNDERSTAND ANY CHANGES, SIDE EFFECTS TO REPORT BY EOE. PATIENT WILL BE FREE OF INFECTION AND UNDERSTAND MEASURES OF PREVENTION. PATIENT/CAREGIVER WILL COLLABORATE WITH SKILLED NURSE TO DEVELOP POC AT SOC AND ON AN ONGOING BASIS UPDATES ARE NEEDED. UNDERSTAND PROGRESS MADE/DISCHARGE PLANNING. ADDITIONAL ORDERS WILL BE RECEIVED FROM ALTERNATE PHYSICIANS IN A TIMELY MANNER. Progress Notes Progress Notes <paragraph>[Visit Date: 2024 by RUSS GARCÍA REGISTERED NURSE SAFETY COORDINATOR]:</paragraph><paragraph>PTNT BEING SEEN BY FOR CLL. PTNT TAKING HER ORAL CHEMO DAILY. SN GREETED AT DOOR BY PTNT CG. ENTERED HOME TO FIND PTNT RESTING IN LIFT CHAIR WITH LEGS ELEVATED. PTNT CG PRESENT DURING VISIT. NO MED CHANGES. CASE CONFERENCE WITH MILO FRANKS. PTNT HAD FALL ON WEDNESDAY WITH NO INJURY. PTNT ANOX4, ACTIVELY PARTICIPATING IN CARE WITH PLEASANT AFFECT, VERY FORGETFUL AND CIRCLE. COMPREHENSIVE ASSESSMENT COMPLETED. VSS, HR REG, LUNGS CTA, BSX4, ABD SOFT NONTENDER, LBM 09/27/24, NO EDEMA, +2 PEDAL PULSES. PTNT DENIES, CHEST PAIN, FEVER, CHILLS, AND SOB. SKIN CHECK COMPLETED. PTNT DEMONSTRATES NO BREAKDOWN IN SKIN INTEGRITY. WEIGHT 103 LBS. PAIN 3/10 LOW BACK. PTNT/CG INSTRUCTED ON DIVERTICULOSIS/-ITIS MGMT AND WARNING SIGNS. INSTRUCTED ON FOODS TO AVOID: SPICY, NUTS, SEEDS, HIGH FIBER VEGGIES, HIGH FAT OR FRIED FOODS. INSTRUCTED ON FOODS THAT ARE OKAY TO EAT. PTNT APT 10/10 DR. URRUTIA (PCP), 10/03 DR. CHAD TOLENTINO (GI), 10/26 DR. MEDEROS (ONCOLOGY), 11/14 DR. AUSTIN AGUSTIN (CARDIO) PTNT STABLE AT DEPARTURE FROM HOME. PTNT/CG VERBALIZED UNDERSTANDING OF ALL EDUCATION PROVIDED. PTNT/CG DENY ADDITIONAL QUESTIONS/CONCERNS AND VERBALIZE SATISFACTION WITH CARE AT END OF VISIT.</paragraph> Encounters Start Date/Time End Date/Time Encounter Type Admission Type Attending Clinicians Care Facility Care Department Encounter ID Discharge Date Discharge Status Discharge Condition Discharge Reason Percent Goals Met 2024-07-19 00:00:00 2024-11-15 00:00:00 Outpatient RECERTIFIC ATION [facility] [id number] 37.04
--- OUTSIDE RECORDS SUMMARY | 2024-10-02 14:24 | XMS_ITS | Data Portability ---
Author Organization [place] - [employer], Main Office Address [address] [place] [address] Assessment No assessment recorded. Plan of Treatment [...] bingham am No observ ation record ed. [id number] _[facility]_[address], [place], [address], 08/26/2022 23:11:14 02/20/20 21 01/15/2021 elect kaylan bingham am No observ ation record ed. [id number] _[address], [place], [address], 08/26/2022 23:11:14 04/14/20 22 XR, lumbo sacra l spine , 2 or 3 view [facility] [address] [facility] [place] [address] [phone] Fernando t Name: SANDRA FORD Access ion #: [id number] Sex: F : 1935 4 Locati [...] t Name: SANDRA FORD Access ion #: [id number] Sex: F : 1935 4 Exam [...] 9:14 AM (CT) Page 2 of 2 [id number] [facility] (Imaging) [address] [place] [address], [address], 08/26/2022 23:11:14 04/14/20 22 04/14/2022 XR, lumbo sacra l spine , 2 or 3 view No observ ation record ed. [id number] [facility] [address] , [place], [address], 08/26/2022 23:11:14 06/15/20 22 06/15/2022 imagi ng/di agnos tic resul t No observ ation record ed. [id number] [place] [address] [address], [place], [address], 08/26/2022 23:11:14 06/15/20 22 06/15/2022 imagi ng/di agnos tic resul t No observ ation record ed. [id number] [place] [address] [address], [place], [address], 08/26/2022 23:11:14 06/23/20 22 06/23/2022 CT, abdom en + pelvi s, w/ contr ast No observ ation record ed. [id number] [place] [address], [place], [address], 08/26/2022 23:11:14 07/31/19 23 07/31/2022 CT, abdom en + pelvi s, w/ contr ast No observ ation record ed. [id number] [place] [address] [address], [place], [address], 08/26/2022 23:11:14 04/02/20 23 04/02/2023 XR, wrist , 3 or more view No observ ation record ed. [address], [place], [address], 04/05/2023 10:20:44 04/02/20 23 04/02/2023 XR, hip, bilat eral, 2 view No observ ation record ed. [address], [place], [address], 04/05/2023 10:22:37 04/02/20 23 04/02/2023 XR, femur , 2 or more view No observ ation record ed. [address], [place], [address], 04/05/2023 10:23:23 04/03/2004/03/2023 CT, hip, w/o contr ast No observ ation record ed. [address], [place], [address], 04/05/2023 10:24:12 04/03/2004/03/2023 XR, chest , 2 view No observ ation record ed. [address], [place], [address], 04/05/2023 10:25:09 04/05/20 23 04/05/2023 stres s echoc ardio gram No observ ation record ed. [address], [place], [address], 04/05/2023 15:52:26 04/05/2004/05/2023 XR, shoul maxim No observ ation record ed. [address], [place], [address], 04/05/2023 15:52:39 Result Notes None recorded. Problems Name Problem SNOMED Code Status Onset Date Resolution Date Notes Provider Name and Address Organization Details Recorded Time Knee pain Active 2020 Not Available [facility] 3 23:08:39 History of back pain 85675766300 4102 Active 2020 Not Available [facility] 3 23:08:39 Chronic lymphoid leukemia, disease 67499701 Active 2020 Not Available 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, [facility] [address], [place], [address] , [facility] 10:24:16 Problem Notes None recorded. Procedures Surgical History Date Name Laterality Status Provider Name and Address Organization Details Recorded Time Cataract Surgery completed Not Available [facility] 08/26/2022 23:06:17 cardiac catheterization completed Not Available [facility] 08/26/2022 23:06:17 colonoscopy completed Not Available [facility] 08/26/2022 23:06:17 dacryocystotomy completed Not Available [facility] 08/26/2022 23:06:17 Hysterectomy completed Not Available [facility] 08/26/2022 23:06:17 Cholecystectomy completed Not Available [facility] 08/26/2022 23:06:17 Imaging Results Imaging Date Name Status LastModified by Organization Details LastModified Time 06/23/2022 CT, abdomen + pelvis, w/ contrast completed [id number] [address], [place], [address], 08/26/2022 23:11:14 06/15/2022 imaging/diagnostic result completed [id number].[id number] [place] [address], [place], [address], 08/26/2022 23:11:14 06/15/2022 imaging/diagnostic result completed [id number] [place] [address], [place], [address], 08/26/2022 23:11:14 07/31/2022 CT, abdomen + pelvis, w/ contrast completed [id number] [facility] [address], [place], [address], 08/26/2022 23:11:14 01/16/2021 electrocardiogram completed MIGRATION. [id number] [facility] [address], [place], [address], 08/26/2022 23:11:14 01/15/2021 electrocardiogram completed MIGRATION. [id number] [facility] , [address], [place], [address], 08/26/2022 23:11:14 04/14/2022 XR, lumbosacral spine, 2 or 3 view completed [id number].[id number] [facility] ([facility] [address] [facility], [place], [address], 08/26/2022 23:11:14 04/14/2022 XR, lumbosacral spine, 2 or 3 view completed [id number], [place], [address], 08/26/2022 23:11:14 04/02/2023 XR, wrist, 3 or more view completed [address], [address], 04/05/2023 10:20:44 04/02/2023 XR, hip, bilateral, 2 view [address], [address], 04/05/2023 10:22:37 04/02/2023 XR, femur, 2 or more view completed [address], [address], 04/05/2023 10:23:23 04/03/2023 CT, hip, w/o contrast completed [address], [address], 04/05/2023 10:24:12 04/03/2023 XR, chest, 2 view completed [address], [address], 04/05/2023 10:25:09 04/05/2023 stress echocardiogram completed [address], [address], 04/05/2023 15:52:26 04/05/2023 XR, shoulder completed [id number], [place], [address], 04/05/2023 15:52:39 Procedure Notes None recorded. Medical [...] % 96 % 84 /min 97.3 [degF] 94573.7 9 g 116 mm[Hg] 76 mm[Hg] Not Available [facility] 3 23:08:21 Date Recorded Body mass index (BMI) Body height Oxygen saturation Oxygen saturation in Arterial blood by Pulse oximetry Heart rate Body temperature Body weight Systolic blood pressure Diastolic blood pressure Provider Name and Address Organization Details Last Updated DateTime 2 27.4 kg/m2 147.32 cm 98 % 98 % 113 /min 97.3 [degF] 48171.6 g 144 mm[Hg] 90 mm[Hg] Not Available [facility] 3 23:08:21 Date Recorded Body height Body mass index (BMI) Body weight Body temperature Heart rate Oxygen saturation Oxygen saturation in Arterial blood by Pulse oximetry Systolic blood pressure Diastolic blood pressure Provider Name and Address Organization Details Last Updated DateTime 3 147.32 cm 26.1 kg/m2 78329.0 5 g 98.7 [degF] 103 /min 98 % 98 % 130 mm[Hg] 80 mm[Hg] MARIELA Mckeon [place] [facility] [place] [facility] 3 10:07:40 Social History Question Answer Notes LastModified by Organizat ion Details LastModified Time Tobacco Smoking Status Never Smoker Not Available [facility] 08/26/2022 23:06:07 What Is Your Level Of Alcohol Consumption? None [id number] Information not available 08/26/2022 In The 14 Days Before Symptom Onset, Have You Had Close Contact With A Laboratory-confirm ed COVID-19 While That Case Was Ill? No [id number] Information not available 08/26/2022 In The 14 Days Before Symptom Onset, Have You Had Close Contact With A Person Who Is Under Investigation For COVID-19 While That Person Was Ill? No [id number] Information not available 08/26/2022 Sex: Unknown Functional Status None recorded. Mental Status None recorded. Family History Relationship Description Onset Age of this Age Resolved Age Notes LastModified by Organization Details LastModified Time Father Calcificatio n of lung [id number] Not available 08/26/2022 23:06:23 Father Malignant tumor of lung [id number] Not available 08/26/2022 23:06:23 Mother Aneurysm [id number] Not available 08/26/2022 23:06:23 Medical History Condition [...] TB SKIN TEST N MYOCARDIAL INFARCTION N [place] N OBESITY [...] HAVE YOU BEEN HOSPITALIZED OR SEEN IN [facility] IN THE PAST YEAR ? 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 Chronic ly mphoid leukemia, disease 91610443 C91.10 F/u with oncologist /hematolog ist Health Concerns Section Related Observation LastModified by Organization Detai ls LastModified Time None Recorded Concern Status LastModified by Organization Details LastModified Time None Recorded Advance Directives Directive None Recorded Payers Encounter Date Sequence Insurance Name Policy Number Policy Lua Covered Member ID Lua Member ID Guarantor Name 10/14/2022 1 [employer] (MEDICARE REPLACEMENT PPO) [id number] Sandra Ford [id number] Sandra Ford Notes Date Note Type Note [...] vaginal discharge very slight. Georgette Campuzano MD [address] [place] [address] [address], [place], [address], [facility] [employer] 10/14/2022 10:45:32 OBGyn Episode No OBEpisode recorded.
--- OUTSIDE RECORDS SUMMARY | 2024-10-02 14:24 | XMS_ITS | Clinical Summary ---
Author Organization [facility] Address [address] [place] [address] Care Team Providers Care Head Of Conservation Name Role Phone Evelin Eliseo Sudarshan FENG [...] Date Type Department Care Team Description 09/11/2024 Abstract [facility] Oncology and [facility] [address] [facility] [phone] Nicholas Gibson MD 09/11/2024 Telephone [facility] Oncology and Hematology - [place] [address] [facility] [place] [address] Nicholas Gibson MD Surgical Clearance 09/06/2024 Telephone [facility] Oncology and H[facility]ology [facility] [address] [place] [phone] Nicholas Gibson MD Medication Review 09/06/2024 Abstract [facility] Oncology and Hematology [facility] [address] [place] [address] Nicholas Gibson MD 08/29/2024 Abstract [facility] Oncology and Hematology [facility] [address] [place] [phone] Nicholas Gibson MD 08/28/2024 Abstract [facility] Oncology and Hematology [facility] [address] [place] [address] Nicholas Gibson MD 08/23/2024 2:[address] JUDGE Office Visit [facility] Oncology and [facility] [address] [place] [address] Nicholas Gibson MD CLL (chronic lymphocytic leukemia) ([facility]) (Primary Dx) 08/17/2024 Orders Only [facility] Oncology and Hematology [facility] [address] [facility] [place] [address] Nicholas Gibson MD 08/16/2024 External Device Data STL ABSTRACTION Provider, Abstract 08/11/2024 Abstract [facility] Oncology and Hematology - Ck [address] [facility] [address] Nicholas Gibson MD 08/08/2024 Telephone [facility] Oncology and Hematology - [place] [address] [place] [address] Nicholas Gibson MD Surgical Clearance 08/07/2024 Telephone [facility] Oncology and Hematology - [place] [address] [place] [address] Nicholas Gibson MD Lab Results 08/07/2024 Telephone [facility] Oncology and Hematology - [facility] [address] [place] [address] Nicholas Gibson MD Labs Only 08/03/2024 Abstract [facility] Oncology and Hematology - C[facility] [address] [place] [address] Nicholas Gibson MD 07/25/2024 Orders Only [facility] Oncology and Hematology - C[facility] [address] [place] [phone] Nicholas Gibson MD 07/25/2024 Telephone [facility] Oncology and Hematology - [place] [address] [place] [address] Nicholas Gibson MD Medication Review 07/20/2024 External Device Data STL ABSTRACTION Provider, Abstract 07/18/2024 Specialty Pharmacy [facility] [address] [place] [phone] Luanne Pantoja, PHARMACIST 07/14/2024 Orders Only [facility] Oncology and Hematology - Ck [address] [place] [address] Nicholas Gibson MD 07/11/2024 Telephone [facility] Oncology and Hematology - C[facility] [address] [place] [address] Nicholas Gibson MD Medication Review 07/06/2024 Refill [facility] Oncology and Hematology - Ck [address] [place] [phone] Nicholas Gibson MD from Last 3 Months [...] Comments Blood Pressure 107/65 08/23/2024 2:[address] JUDGE Pulse 65 08/23/2024 2:[address] JUDGE Temperature 36.7 C (98.1 F) 08/23/2024 2:[address] JUDGE Respiratory Rate 14 08/23/2024 2:[address] JUDGE Oxygen Saturation 95% 08/23/2024 2:[address] JUDGE Inhaled Oxygen Concentration - - Weight 44.4 kg (97 lb 12.8 oz) 08/23/2024 2:[address] JUDGE Patient stated that she has no appetite so shes been losing weight Height 147.3 cm (4' 10 ) 10/06/2023 12: 32 PM CDT Body Mass Index 20.44 10/06/2023 12:32 PM CDT Plan of Treatment Upcoming Encounters Date Type Department Care Team (Late st Contact Info) Description 10/26/2024 1:00 PM CDT Office Visit [facility] Oncology and Hematology - Ck [address] [facility] [address] [place] [address] Nicholas Gibson MD [address] [facility] [address] [place] [address] Health Maintenance Due Date Last [...] CBC WITH AUTODIFFERENTIAL Routine 2024 1:[address] JUDGE CBC WITH AUTODIFFERENTIAL Routine 2024 2:[address] JUDGE BASIC METABOLIC PANEL Routine 07/14/2024 3:[address] JUDGE CBC WITH DIFFERENTIAL Routine 07/14/2024 12:[address] JUDGE from Last 3 Months Results * CBC WITH AUTODIFFERENTIAL (08/16/2024 1:[address] JUDGE) Only the most recent of2 resultswithin the time period is included. Blood us Nicholas Gibson MD HEMATOLOGY ORDERABLES Final Res ult * BASIC METABOLIC PANEL (07/14/2024 3:[address] JUDGE) Blood us Nicholas Gibson MD CHEMISTRY ORDERABLES Final Resu lt * CBC WITH DIFFERENTIAL (07/14/2024 12:[address] JUDGE) Blood us Nicholas Gibson MD HEMATOLOGY ORDERABLES Final Res ult from Last 3 Months Insurance AETYESI PPO [facility] AETNA PPO [facility] RX AETNA Medicare Part D Care Teams Head Of Conservation Relationship Specialty Start Date End Date Eliseo Waters DO [address] [facility] [address] [place] [address] PCP - General Internal Medicine 03/24/24
--- OUTSIDE RECORDS SUMMARY | 2024-10-02 14:24 | XMS_ITS | Clinical Summary ---
Author Organization [facility] [address] Address [address] [place] [address] Care Team Providers Care Motorized Squad Lieutenant Name Role Phone Eliseo Waters DO Primary Care Provider [phone] Allergies No known active allergies Medications ferrous [...] Department Care Team Description 09/11/2024 Results Follow-Up [facility] Emergency Department [address] [address] Sharon Regalado PA 09/08/2024 12:27 PM CDT - 09/08/2024 4:41 PM CDT Emergency [facility] Emergency Department [address] [address] Idalmis Chapin MD Heilmann, Adam David, MD Bacteriuria, asymptomatic (Primary Dx) Discharge Disposition: Discharge to home or self care 07/31/2024 Telephone [facility] Cardiology [address] [place] [phone] Aldo Morelos MD Med Refill 07/17/2024 8:00 AM MOLDER BENCH - 07/17/2024 11:59 PM [facility]DER [facility]ENCH Hospital Encounter [address] [address] Discharge Disposition: Discharge to home or self [...] on file Legal Sex Female 11:42 PM MOLDER BENCH Gender Identity Not on file Sexual Orientation [...] 09/08/2024 12:20 PM CDT Plan of Treatment Health Maintenance Due Date Last Done Comments Depression Screening 1935 Fall Risk Assessment 1935 Hepatitis B Screening 09/16/1953 Zoster Vaccine (1 of 2) 09/16/1954 Well Visit 65+ 09/16/2000 Covid-19 Vaccine (2023-2 5 season) 2024 03/15/2023, 03/10/2022, 09/25/2021, Additional history exists Influenza Vaccine (Season Ended) 2025 02/22/2023, 03/10/2022, 02/11/2021, Additional history exists DTaP/Tdap/Td Vaccine [...] SURGICAL PATHOLOGY Routine 07/17/2024 9: 46 AM MOLDER BENCH from Last 3 Months Results * (ABNORMAL) Urinalysis reflex to microscopic and culture Urine (09/08/2024 1:56 PM CDT) Color, ur Kimberly Yellow Clarity, ur Turbid(A) Clear [facility] Specific gravity, ur >1.030(H) 1.003 - 1.030 [facility] pH, urine 6.0 [facility] Comment: Interpretive Data U rine pH is affected by diet, medications, systemic acid-base disturbances, and renal tubular function. pH may affect urinary stone formation. For example, urine pH below 6.0 may help reduce the tendency for calcium phosphate stones and pH greater than 6.0 may reduce the tendency for uric acid stone formation. Source: [facility] Current Interpretive Data was last revised on [...] to microscopic UA will be performed. [facility] Urine 09/08/2024 1:56 PM CDT 09/08/2024 1:59 PM CDT us Idalmis Chapin MD LAB MICROBIOLOGY - GENERAL ORDERABLES Final Result [facility] [address] [facility]. [place] [address] * (ABNORMAL) Urinalysis, microscopic only (09/08/2024 1:56 PM CDT) WBC, ur >50(A) 0 - 5 /HPF RBC, ur 21-50(A) 0 - 2 /HPF [facility] Epithelial cells, squamous, ur 11-20(A) 0 - 5 /HPF [facility] Mucous, ur Present(A) [facility] Culture Reflex Comment Reflex to urine culture will be performed. [facility] Urine 09/08/2024 1:56 PM CDT 09/08/2024 1:59 PM CDT us Idalmis Chapin MD LAB URINE ORDERABLES Final Result Performing Organization Address [facility]/ZIP Co de Phone Number [facility] [address] [address] * (ABNORMAL) Urine culture Urine (09/08/2024 1:56 PM CDT) Report Final Report: Greater than or equal to 100,000 colonies/ml of Enterococcus faecium (.) Comment:Testing performed by : [facility], [facility], [place]., [address] Organism ENTEROCOCCUS FAECIUM [facility] Urine 09/08/2024 1:56 PM CDT 09/08/2024 4:49 PM CDT Narrative [facility] - 09/11/2024 7:41 AM CDT Urine culture reflexed based upon urinalysis results. Organism Antibiotic Method Susceptibility Enterococcus faecium Ampicillin (DENIS) INTERPRETATION Resistant Enterococcus faecium Linezolid (DENIS) INTERPRETATION Susceptible Enterococcus faecium Nitrofurantoin (DENIS) INTERPRETATI ON Intermediate Enterococcus faecium Tetracycline (DENIS) INTERPRETATION Resistant Enterococcus faecium Vancomycin (DENIS) INTERPRETATION Resistant us Lj Oconnor MD LAB MICROBIOLOGY - GENERA L ORDERABLES Final Result Performing Organization Address [facility]/ZIP Co de Phone Number [facility] [address] [place] [address] * (ABNORMAL) eGFR (09/08/2024 12:30 PM CDT) [...] MD LAB BLOOD ORDERABLES Final Result [facility] [address] [facility]. Department [place] [address] * (ABNORMAL) CBC with auto differential (09/08/2024 12:30 PM CDT) Pathologist [facility] WBC 117.8(C) 3.8 - 9.9 K/cumm Comment:Critical result call ed to and read back by MARIBEL CA RN on 09 08 2024 at 1311 to Kathy Friedman. Hgb 11.4(L) 11.9 - 15.5 g/dL [facility] Hct 37.6 35.6 - 45.5 % [facility] Plt 248 150 - 400 K/cumm [facility] MPV 10.9 9.1 - 12.3 fL [facility] RBC 3.78(L) 3.90 - 5.20 M/cumm [facility] MCV 99.5(H) 81.3 - 96.4 fL [facility] MCH 30.2 27.1 - 33.3 pg [facility] MCHC 30.3(L) 32.3 - 35.7 g/dL [facility] RDW CV 18.1(H) 11.1 - 14.9 % [facility] RDW SD 61.5(H) 35.7 - 48.1 fL [facility] NRBC abs 0.00 0.00 - 0.01 K/cumm [facility] Blood Venous blood specimen / Unknown 09/08/2024 12:30 PM CDT 09/08/2024 12:30 PM CDT Idalmis Chapin MD LAB BLOOD ORDERABLES Final Result [facility] [address] [facility] [place] [address] * (ABNORMAL) Manual Differential (09/08/2024 12:30 PM CDT) Differential Manual Cells Counted 100 [facility] Neutrophil abs 3.5 1.5 - 6.5 K/cumm [facility] Lymphocyte abs 113.1(H) 0.8 - 3.3 K/cumm [facility] Monocyte abs 0.0(L) 0.2 - 0.8 K/cumm [facility] Basophil abs 1.2(H) 0.0 - 0.1 K/cumm [facility] Neutrophil pct 3.0 % [facility] Comment: Interpretive Data Percent cell count reference ranges are not reported, since discordance with absolute values may lead to misinterpretation of CBC data. Current Interpretive Data was last revised on 2017. Lymphocyte pct 96.0 % [facility] Comment: Interpretive Data Percent cell count reference ranges are not reported, since discordance with absolute values may lead to misinterpretation of CBC data. Current Interpretive Data was last revised on 2017. Basophil pct 1.0 % [facility] Comment: Interpretive Data Percent cell count reference ranges are not reported, since discordance with absolute values may lead to misinterpretation of CBC data. Current Interpretive Data was last revised on 2017. RBC morphology Normal [facility] Platelet estimate Automated Count Confirmed [facility] Blood 09/08/2024 12:3 0 PM CDT 09/08/2024 12:30 PM CDT Idalmis Chapin MD LAB BLOOD ORDERABLES Final Result [facility] [address] [facility]. [place] [address] * (ABNORMAL) Comprehensive metabolic panel (09/08/2024 12:30 PM CDT) Sodium 137 135 - 145 mmol/L Potassium, pl 4.8 3.3 - 4.9 mmol/L [facility] Chloride 104 97 - 110 mmol/L [facility] [...] Calcium 10.2 8.5 - 10.3 mg/dL [facility] Bilirubin, total 0.8 0.1 - 1.2 mg/dL [facility] Protein, pl 6.4(L) 6.5 - 8.5 g/dL [facility] Albumin 3.9 3.5 - 5.0 g/dL [facility] Alk phos 62 40 - 130 Units/L [facility] ALT 9 7 - 45 Units/L [facility] AST 26 10 - 45 Units/L [facility] Comment:Hemolyzed; result ma y be falsely elevated. Blood 09/08/2024 12:3 0 PM CDT 09/08/2024 12:30 PM CDT Idalmis Chapin MD LAB BLOOD ORDERABLES Final Result [facility] [address] [facility]. Department [place] [address] * Surgical pathology (07/17/2024 9:46 AM M[facility]DER [facility]ENCH) Bone - Biopsy / Curettings 07/17/2024 9:46 AM M[facility]DER [facility]ENCH 07/18/2024 9:46 AM [facility]DER [facility]CH Narrative 07/19/2024 10:43 PM MOLDER [facility]EN[facility] EPIC results best viewed via link to PDF [facility] Department of Pathology [address] [place] [id number] Note to Patients: This report may [...] Addendum Patient Name: SANDRA FORD Address: [address] [place] [address] Gender: F : 1935 (Age: 88) Service: Location: [facility] #: [id number] Patient Type: SPECIMEN Taken: 07/17/2024 Received: 07/18/2024 [...] Addendum Comment The external consult report from [facility] ([id number]) has been finalized and is attached. For the distributor sales consultant s comment, please see scanned image of report or the report can be viewed in the Electronic Medical Record of the patient. If access to the EMR is not available, please call pathology for a hard copy of the report ([phone]). 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 See [...] submitted in two formalin containers labeled SANDRA Flores. The first container is labeled T8 vertebral body . It is 1 core of riojas bone measuring 7 mm. The specimen is decalcified.. All in A. B. The second container is labeled T10 vertebral body . It is 1 core of riojas tissue measuring 8 mm. The specimen is decalcified.. All in B. T.A. Gera Hernandez., Devin./Trice Harvey M.D. REPORT IMAGES AND SCANNED DOCUMENTS, IF INCLUDED, ONLY VIEWABLE IN PDF VERSION OF REPORT The performance characteristics of some immunohistochemical stains, fluorescence in-situ hybridization tests and immunophenotyping by flow cytometry cited in this report (if any) were determined by the Surgical Pathology Department at [facility] as part of an ongoing senior software quality engineer program and in compliance with [...] characteristics determined by the Surgical Pathology Department [facility]. 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
--- OUTSIDE RECORDS SUMMARY | 2024-10-02 14:24 | XMS_ITS | Clinical Summary ---
Author Organization Unknown Care Team Providers Care Contract Runner Name Role Phone KENNETH AVIONICS ENGINEER, VALERIO Unavailable Unavailable CADE PHYSICAL THERAPIST, CAMILLE Unavailable Unavailable DEBBIE DIGITAL SALES EXECUTIVE, TINY Unavail able Unavailable RAQUEL REGISTERED NURSE BRIM STRETCHING MACHINE OPERATOR, RUSS Mera vailable Unavailable NGUYEN ROCA COUNSELOR, [...] TO LARGE INTESTINE Active 06-28 00:00: 00 CAPTAIN CANNERY TENDER (CURRENT) USE OF ANTIBIOTICS Active 06-28 00:00: 00 CAPTAIN CANNERY TENDER (CURRENT) USE OF ANTICOAGULAN TS Active 06-28 00:00: 00 OTHER CAPTAIN CANNERY TENDER (CURRENT) DRUG THERAPY Active 06-28 00:00: 00 [...] 300 mg tablet 07-18 00:00: 00 Yes [id number] HELP WITH SIDE EFFECTS OF BRUKINSA 1 tablet ONCE DAILY 1 tablet ONCE DAILY (route: oral) Med Classific ation: Gout and Hyperuric emia Therapy Brukinsa 80 mg capsule 07-18 00:00: 00 Yes [id number] CANCER 2 capsule TWICE DAILY 2 capsule TWICE DAILY (route: oral) Med Classific ation: Antineopl astics calcium 500 mg (as calcium carbonate 1,250 mg) tablet 07-18 00:00: 00 Yes [id number] SUPPLEMENT 1 tablet ONCE DAILY 1 tablet ONCE DAILY (route: oral) Med Classific ation: Electroly te Balance-N utritiona l Products Dulcolax (bisacodyl) 5 mg tablet,alessio yed release 07-18 00:00: 00 Yes [id number] CONSTIPATIO N 1 tablet ONCE DAILY 1 tablet ONCE DAILY (route: oral) Med Classific ation: Gastroint estinal Therapy Agents Eliquis 2.5 mg tablet 07-18 00:00: 00 Yes [id number] PREVENT CLOTS 1 tablet TWICE DAILY 1 tablet TWICE DAILY (route: oral) Med Classific ation: Hematolog ical Agents hydrocodone 10 mg-acetamin ophen 325 mg tablet 07-18 00:00: 00 09-14 23:59 :00 No [id number] PAIN 1 tablet 3 TIMES DAILY 1 tablet 3 TIMES DAILY (route: oral) Med Classific ation: Analgesic , Anti-infl ammatory or Antipyret ic metoprolol tartrate 25 mg tablet - 00:00: 00 Yes [id number] HYPERTENSIO N 1 tablet TWICE DAILY 1 tablet TWICE DAILY (route: oral) Med Classific ation: Cardiovas cular Therapy Agents Miralax 17 gram/dose oral powder 07-18 00:00: 00 Yes [id number] CONSTIPATIO N Per instruc tions ONCE DAILY Per instructio ns ONCE DAILY (route: oral) Med Classific ation: Gastroint estinal Therapy Agents Vitamin D3 10 mcg (400 unit) tablet 07-18 00:00: 00 Yes [id number] SUPPLEMENT 1 tablet ONCE DAILY 1 tablet ONCE DAILY (route: oral) Med Classific ation: Electroly te Balance-N utritiona l Products acetaminoph en 325 mg capsule 07-28 00:00: 00 Yes [id number] PAIN 2 capsule EVERY 6 HOURS 2 capsule EVERY 6 HOURS (route: oral) Med Classific ation: Analgesic , Anti-infl ammatory or Antipyret ic amoxicillin 875 mg-potassiu m clavulanate 125 mg tablet 08-23 00:00: 00 09-05 23:59 :00 No [id number] DYSURIA 1 tablet TWICE DAILY 1 tablet TWICE DAILY (route: oral) Med Classific ation: Anti-Infe ctive Agents Gemtesa 75 mg tablet 08-18 00:00: 00 Yes [id number] OVERACTIVE BLADDER 1 tablet ONCE DAILY 1 tablet ONCE DAILY (route: oral) Med Classific ation: Genitouri nary Therapy ciprofloxac in 500 mg tablet 09-05 00:00: 00 09-19 23:59 :00 No [id number] COLO/VAGINA L FISTULA AND URINARY TRACT INFECTION 1 tablet TWICE DAILY 1 tablet TWICE DAILY (route: oral) Alternate Route: BY MOUTH. Med Classific ation: Anti-Infe ctive Agents metronidazo le 500 mg tablet 09-05 00:00: 00 09-19 23:59 :00 No [id number] COLO/VAGINA L FISTULA 1 tablet TWICE DAILY 1 tablet TWICE DAILY (route: oral) Alternate Route: BY MOUTH. Med Classific ation: Anti-Infe ctive Agents azelastine 137 mcg (0.1 %) nasal spray 09-17 00:00: 00 Yes [id number] ALLERGIES 1 spray TWICE DAILY 1 spray TWICE DAILY (route: nasal) Alternate Route: NOSTRIL - BOTH. Med Classific ation: Respirato ry Therapy Agents cetirizine 10 mg tablet 09-17 00:00: 00 Yes [id number] ALLERGIES 1 tablet ONCE DAILY 1 tablet ONCE DAILY (route: oral) Med Classific ation: Respirato ry Therapy Agents mecobalamin (vitamin B12) 1,000 mcg chewable tablet 09-17 00:00: 00 Yes [id number] LOW VITAMIN B 1 tablet ONCE DAILY [...] CARE PLAN: DR. JENELLE MEDEROS, VALERIO COOPER, AVIONICS ENGINEER; DR. OTIS URRUTIA, DR. CHAD TOLENTINO, DR. [...] CARE PLAN: DR. JENELLE MEDEROS, VALERIO COOPER, AVIONICS ENGINEER; DR. OTIS URRUTIA, DR. CHAD TOLENTINO, DR. [...] WILL BE ESTABLISHED THAT MEETS ALL PATIENT'S CUSTODIAL NEEDS AND COUNTER SIGNED BY PHYSICIAN. Goal [...] Date: 2024 by RUSS GARCÍA REGISTERED NURSE BRIM STRETCHING MACHINE OPERATOR]:</paragraph><paragraph>PTNT BEING SEEN BY FOR CLL. PTNT TAKING HER ORAL CHEMO DAILY. SN GREETED AT DOOR BY PTNT CG. ENTERED HOME TO FIND PTNT RESTING IN LIFT CHAIR WITH LEGS ELEVATED. PTNT CG PRESENT DURING VISIT. NO MED CHANGES. CASE CONFERENCE WITH MILO FRANKS. PTNT HAD FALL ON WEDNESDAY WITH NO INJURY. PTNT ANOX4, ACTIVELY PARTICIPATING IN CARE WITH PLEASANT AFFECT, VERY FORGETFUL AND [place]. COMPREHENSIVE ASSESSMENT COMPLETED. VSS, HR REG, LUNGS [...] 2024-11-15 00:00:00 Outpatient RECERTIFIC ATION RUSS GARCÍA [facility]OPER [facility] [id number] 37.04
--- OUTSIDE RECORDS SUMMARY | 2024-10-02 14:24 | XMS_ITS ---
Author Name Ronald Lowry Address [address] [place] [address] Phone [phone] [employer] ice Address [address] [facility] [place] [address] Phone [phone] Care Team Providers Care Molding Supervisor Name Role Phone Ronald Lowry Unavailable [phone] Functional Status No Results Mental Status No Results Allergies and Intolerances Name Onset Date Reaction Severity tetracycline (Allergy) WedApr 09 12:01:00 EDT 2 023 Medications Medication Directions Start Date End Date acetaminophen 325 mg tablet 2 TABLET Oral PRN Every 6 Hours Indication: pain WedApr 21 07:00:00 EDT 2022Apr 23 01:00:00 EDT 2022 TubersoL 5 tub. unit/0.1 mL intradermal injection solution 0.1 ml VIAL (ML) Intradermal 1 Time Weekly for 2 Weeks Indication: tb TEST 1st injection on admission, then one week after. Read between 48 and 72 hours WedApr 12 09:00:00 EDT 2022Apr 23 01:00:00 EDT 2022 TubersoL 5 tub. unit/0.1 mL intradermal injection solution Read Results VIAL (ML) Other 1 Time Weekly for 2 Weeks Indication: TB TEST Read results between 48-72 hours after 1st and 2nd (1 week apart). If positive do chest x-ray. WedApr 12 09:00:00 EDT 2022Apr 23 01:00:00 EDT 2022 metoprolol tartrate 25 mg tablet 12.5 MG TABLET Oral 2 Times Daily Indication: A-fib WedApr 12 14:00:00 EDT 2022Apr 23 01:00:00 EDT 2022 Pro-Stat Max 11 gram-80 kcal/30 mL oral liquid 30 cc LIQUID (ML) Oral 1 Time Daily Indication: to meet increased protein needs for healing WedApr 12 14:30:00 EDT 2022Apr 23 01:00:00 EDT 2022 Alive Women's 50 Plus (fruit-veg blend) 240 mcg-120 mcg-300 mcg tablet 1 TABLET TABLET Oral 1 Time Daily Indication: VITAMIN SUPPLEMENT WedApr 09 12:00:00 EDT 2022Apr 23 01:00:00 EDT 2022 Vitamin C 1,000 mg tablet 1 TABLET TABLE T Oral 1 Time Daily Indication: VITAMIN SUPPLEMENT WedApr 09 12:00:00 ED2022Apr 23 01:00:00 EDT 2022 Eliquis 2.5 mg tablet 1 TABLET TABLET Or al 2 Times Daily Indication: CLOT PREVENTION WedApr 09 12:00:00 EDT 2022Apr 23 01:00:00 EDT 2022 FeroSuL 325 mg (65 mg iron) tablet 1 TABLET TABLET Oral 1 Time Daily Indication:Anemia WedApr 09 12:00:00 ED2022Apr 23 01:00:00 EDT 2022 metoprolol tartrate 25 mg tablet 1 TABLET TABLET Oral 2 Times Daily Indication: A-fib WedApr 09 12:00:00 EDT 2022Apr 12 14:06:00 EDT 2022 [place]-3 Fish OiL 300 mg-1,000 mg capsule 1 CAPSULE CAPSULE Oral 1 Time Daily Indication: VITAMIN SUPPLEMENT WedApr 09 12:00:00 EDT 2022Apr 23 01:00:00 EDT 2022 Problems Active Concerns * Fall on same level, unspecified, subsequent encounter* Code: * Start Date: WedApr 09 00:00:00 EDT 2022 * End Date: * Text: * Nondisplaced fracture of greater trochanter of left femur, subsequent encounter for closed fracturewith routine healing* Code: * Start Date: WedApr 09 00:00:00 EDT 2022 * End Date: * Text: * Unspecified atrial fibrillation* Code: * Start Date: WedApr 09 00:00:00 EDT 2022 * End Date: * Text: * Chronic lymphocytic leukemia of B-cell type not having achieved remission* Code: * Start Date: WedApr 09 00:00:00 EDT 2022 * End Date: * Text: * Pain in left shoulder* Code: * Start Date: WedApr 09 00:00:00 EDT 2022 * End Date: * Text: * Effusion, left wrist* Code: * Start Date: WedApr 09 00:00:00 EDT 2022 * End Date: * Text: * Nonrheumatic aortic (valve) stenosis* Code: * Start Date: WedApr 09 00:00:00 EDT 2022 * End Date: * Text: * Rheumatic mitral insufficiency* Code: * Start Date: WedApr 09 00:00:00 EDT 2022 * End Date: * Text: * penitentiary (current) use of anticoagulants* Code: * Start Date: WedApr 09 00:00:00 EDT 2022 * End Date: * Text: * penitentiary (current) use of aspirin* Code: * Start Date: WedApr 09 00:00:00 EDT 2022 * End Date: * Text: * 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
== END 2024-10-02 12:46 | disposition home or self-care (01) ==
PROVIDERS: PCP Internal Medicine; Visit Provider Surgery
DX: K57.32 Diverticulitis of large intestine without perforation or abscess without bleeding (principal)
CPT/HCPCS: 74177; Q9967

== ENCOUNTER 2024-10-19 09:30 | Outpatient (CLI) | payer MEDICARE, SELFPAY ==
[2024-10-19 09:48] LABS: Basophils Absolute Auto 0.1 K/mm3 (0.0-0.1); Basophils Percent Auto 0.1 % (0.2-1.2); Eosinophils Absolute Auto 0.2 K/mm3 (0-0.3); Eosinophils Percent Auto 0.3 % (0-4.4); Hematocrit 37.6 % (37.0-47.0); Hemoglobin 11.7 g/dL (12.0-15.0); Immature Granulocyte Percent A 0.1 % (0-0.5); Lymphocytes Absolute Auto 59.48 K/mm3 (0.9-3.2); Lymphocytes Percent Auto 88.7 % (18.3-44.2); Mean Corpuscular HGB Conc 31.1 g/dl (32-36); Mean Corpuscular Hemoglobin 30.7 pg (26-34); Mean Corpuscular Volume 98.7 fl (80-100); Mean Platelet Volume 10.6 fl (7.4-10.4); Monocytes Absolute Auto 0.5 K/mm3 (0.1-0.6); Monocytes Percent Auto 0.7 % (2.6-8.5); Neutrophils Absolute Auto 6.7 K/mm3 (1.3-6.7); Neutrophils Percent Auto 10.1 % (45.5-73.1); Platelet Count Result 216 k/mm3 (150-375); Red Blood Count 3.81 M/mm3 (4.2-5.4); Red Cell Distribution Width 17.4 % (11.5-14.5)
[2024-10-19 09:55] LABS: Platelet Estimate Adequate (Adequate); Schistocytes None Seen
[2024-10-19 09:58] LABS: Anisocytosis 2+; Atypical Lymphocytes Present; Hypochromasia 1+; Ovalocytes 1+
[2024-10-19 10:17] LABS: Anion Gap 10 mmol/L (4-12); Blood Urea Nitrogen 14 mg/dL (7-17); Calcium 9.5 mg/dL (8.4-10.2); Carbon Dioxide 25 mmol/L (22-30); Chloride 102 mmol/L (98-107); Estimated Glomerular Filt Rate 52; Glucose 113 mg/dL (65-110); Potassium 4.7 mmol/L (3.4-5.0); Sodium 137 mmol/L (137-145)
--- OUTSIDE RECORDS SUMMARY | 2024-10-19 10:23 | XMS_ITS | Data Portability ---
Author Organization [place] [employer] [facility] [employer], Main Office Address [address] [place] [address] Assessment No assessment recorded. Plan of Treatment [...] bingham am No observ ation record ed. [id number] _[facility]_[address], [place], [address], 08/26/2022 23:11:14 02/20/20 21 01/15/2021 elect kaylan bingham am No observ ation record ed. [id number] _[address], [place], [address], 08/26/2022 23:11:14 04/14/20 22 XR, lumbo sacra l spine , 2 or 3 view [facility] [address] [place] [address] Fernando t Name: SANDRA FORD Access ion #: [id number] Sex: F : 1935 4 Locati [...] t Name: SANDRA FORD Access ion #: [id number] Sex: F : 1935 4 Exam [...] 9:14 AM (CT) Page 2 of 2 [id number] [facility] ([facility]) [address] [place] [address], [address], 08/26/2022 23:11:14 04/14/20 22 04/14/2022 XR, lumbo sacra l spine , 2 or 3 view No observ ation record ed. [id number] [facility] [address] , [place], [address], 08/26/2022 23:11:14 06/15/20 22 06/15/2022 imagi ng/di agnos tic resul t No observ ation record ed. [id number] [place] [address] [address], [place], [address], 08/26/2022 23:11:14 06/15/20 22 06/15/2022 imagi ng/di agnos tic resul t No observ ation record ed. [id number] [place] [address] [address], [place], [address], 08/26/2022 23:11:14 06/23/20 22 06/23/2022 CT, abdom en + pelvi s, w/ contr ast No observ ation record ed. [id number] [place] [address], [place], [address], 08/26/2022 23:11:14 07/31/19 23 07/31/2022 CT, abdom en + pelvi s, w/ contr ast No observ ation record ed. [id number] [place] [address] [address], [place], [address], 08/26/2022 23:11:14 04/02/20 23 04/02/2023 XR, wrist , 3 or more view No observ ation record ed. [address], [place], [address], 04/05/2023 10:20:44 04/02/20 23 04/02/2023 XR, hip, bilat eral, 2 view No observ ation record ed. [address], [place], [address], 04/05/2023 10:22:37 04/02/20 23 04/02/2023 XR, femur , 2 or more view No observ ation record ed. [address], [place], [address], 04/05/2023 10:23:23 04/03/2004/03/2023 CT, hip, w/o contr ast No observ ation record ed. [address], [place], [address], 04/05/2023 10:24:12 04/03/2004/03/2023 XR, chest , 2 view No observ ation record ed. [address], [place], [address], 04/05/2023 10:25:09 04/05/20 23 04/05/2023 stres s echoc ardio gram No observ ation record ed. [address], [place], [address], 04/05/2023 15:52:26 04/05/2004/05/2023 XR, shoul maxim No observ ation record ed. [address], [place], [address], 04/05/2023 15:52:39 Result Notes None recorded. 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 Procedures Surgical History Date Name Laterality Status Provider Name and Address Organization Details Recorded Time Cataract Surgery completed Not Available [facility] 08/26/2022 23:06:17 cardiac catheterization completed Not Available [facility] 08/26/2022 23:06:17 colonoscopy completed Not Available [facility] 08/26/2022 23:06:17 dacryocystotomy completed Not Available [facility] 08/26/2022 23:06:17 Hysterectomy completed Not Available [facility] 08/26/2022 23:06:17 Cholecystectomy completed Not Available [facility] 08/26/2022 23:06:17 Imaging Results Imaging Date Name Status LastModified by Organization Details LastModified Time 06/23/2022 CT, abdomen + pelvis, w/ contrast completed [id number] [address], [place], [address], 08/26/2022 23:11:14 06/15/2022 imaging/diagnostic result completed [id number] [place] [address], [place], [address], 08/26/2022 23:11:14 06/15/2022 imaging/diagnostic result completed [id number] [place] [address], [place], [address], 08/26/2022 23:11:14 07/31/2022 CT, abdomen + pelvis, w/ contrast completed [id number] [facility] [address], [place], [address], 08/26/2022 23:11:14 01/16/2021 electrocardiogram completed MIGRATION. [id number] [facility] [address], [place], [address], 08/26/2022 23:11:14 01/15/2021 electrocardiogram completed MIGRATION. [id number] [facility] , [address], [place], [address], 08/26/2022 23:11:14 04/14/2022 XR, lumbosacral spine, 2 or 3 view completed [id number] [facility] ([facility] [address], [place], [address], 08/26/2022 23:11:14 04/14/2022 XR, lumbosacral spine, 2 or 3 view completed [id number], [place], [address], 08/26/2022 23:11:14 04/02/2023 XR, wrist, 3 or more view completed [address], [address], 04/05/2023 10:20:44 04/02/2023 XR, hip, bilateral, 2 view completed [address], [address], 04/05/2023 10:22:37 04/02/2023 XR, femur, 2 or more view completed [address], [address], 04/05/2023 10:23:23 04/03/2023 CT, hip, w/o contrast completed [address], [address], 04/05/2023 10:24:12 04/03/2023 XR, chest, 2 view completed [address], [address], 04/05/2023 10:25:09 04/05/2023 stress echocardiogram completed [address], [address], 04/05/2023 15:52:26 04/05/2023 XR, shoulder completed [email or web address], [place], [address], 04/05/2023 15:52:39 Procedure Notes None recorded. Medical [...] % 96 % 84 /min 97.3 [degF] 97956.7 9 g 116 mm[Hg] 76 mm[Hg] Not Available [facility] 3 23:08:21 Date Recorded Body mass index (BMI) Body height Oxygen saturation Oxygen saturation in Arterial blood by Pulse oximetry Heart rate Body temperature Body weight Systolic blood pressure Diastolic blood pressure Provider Name and Address Organization Details Last Updated DateTime 2 27.4 kg/m2 147.32 cm 98 % 98 % 113 /min 97.3 [degF] 90853.6 g 144 mm[Hg] 90 mm[Hg] Not Available [facility] 3 23:08:21 Date Recorded Body height Body mass index (BMI) Body weight Body temperature Heart rate Oxygen saturation Oxygen saturation in Arterial blood by Pulse oximetry Systolic blood pressure Diastolic blood pressure Provider Name and Address Organization Details Last Updated DateTime 3 147.32 cm 26.1 kg/m2 91584.0 5 g 98.7 [degF] 103 /min 98 % 98 % 130 mm[Hg] 80 mm[Hg] MARIELA Mckeon [place] [facility] [place] [employer] 3 10:07:40 Social History Question Answer Notes LastModified by Organizat ion Details LastModified Time Tobacco Smoking Status Never Smoker Not Available [facility] 08/26/2022 23:06:07 What Is Your Level Of Alcohol Consumption? None [id number] Information not available 08/26/2022 In The 14 Days Before Symptom Onset, Have You Had Close Contact With A Laboratory-confirm ed COVID-19 While That Case Was Ill? No [id number] Information not available 08/26/2022 In The 14 Days Before Symptom Onset, Have You Had Close Contact With A Person Who Is Under Investigation For COVID-19 While That Person Was Ill? No [id number] Information not available 08/26/2022 Sex: Unknown Functional Status None recorded. Mental Status None recorded. Family History Relationship Description Onset Age of this Age Resolved Age Notes LastModified by Organization Details LastModified Time Father Calcificatio n of lung [id number] Not available 08/26/2022 23:06:23 Father Malignant tumor of lung [id number] Not available 08/26/2022 23:06:23 Mother Aneurysm [id number] Not available 08/26/2022 23:06:23 Medical History Condition [...] HAVE YOU BEEN HOSPITALIZED OR SEEN IN [facility] IN THE PAST YEAR ? 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 Chronic ly mphoid leukemia, disease 81191061 C91.10 F/u with oncologist /hematolog ist Health Concerns Section Related Observation LastModified by Organization Detai ls LastModified Time None Recorded Concern Status LastModified by Organization Details LastModified Time None Recorded Advance Directives Directive None Recorded Payers Encounter Date Sequence Insurance Name Policy Number Policy Lua Covered Member ID Lua Member ID Guarantor Name 10/14/2022 1 [employer] (MEDICARE REPLACEMENT PPO) [id number] Sandra Ford [id number] Sandra Ford Notes Date Note Type Note [...] vaginal discharge very slight. Georgette Campuzano MD [address] [place] [address] [address], [place], [address], [facility] [employer] 10/14/2022 10:45:32 OBGyn Episode No OBEpisode recorded.
--- OUTSIDE RECORDS SUMMARY | 2024-10-19 10:23 | XMS_ITS | Encounter Summary ---
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
--- OUTSIDE RECORDS SUMMARY | 2024-10-19 10:23 | XMS_ITS ---
Author Name Auto Generated, Auto Generated Organization [facility] Address [address] [place] [address] Phone [phone] Care Team Providers Care Leaf Fat Scraper Name Role Phone Latesha Lowryn Unavailable [phone] Functional Status No Results Mental Status No [...] 12:00:00 EDT 2022Apr 23 01:00:00 EDT 2022 Eliquis 2.5 mg tablet 1 TABLET TABLET Or al 2 Times Daily Indication: CLOT PREVENTION WedApr 09 12:00:00 EDT 2022Apr 23 01:00:00 EDT 2022 FeroSuL 325 mg (65 mg iron) tablet 1 TABLET TABLET Oral 1 Time Daily Indication:Anemia WedApr 09 12:00:00 EDT 2022Apr 23 01:00:00 EDT 2022 metoprolol tartrate 25 mg tablet 1 TABLET TABLET Oral 2 Times Daily Indication: A-fib WedApr 09 12:00:00 EDT 2022 16 14:06:00 EDT 2022 [place]-3 Fish OiL 300 mg-1,000 mg capsule 1 [...] 2022 * End Date: * Text: * 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
--- OUTSIDE RECORDS SUMMARY | 2024-10-19 10:23 | XMS_ITS | Continuity of Care Document ---
Author Organization [facility] Address [address] [place] [address] [place] [address] Phone Care Team Providers Care Passenger Service Supervisor Name Role Phone Misha Perdomo Unavailable Unavailable [...] Copied on Encounter Office/outpat ient Visit, Est [facility], [address] [place] [address] [address], [place], [place], [id number], tel:[phone] [facility] No Information Sep-0 9-201 0 Conor Cabral. [address] , [address], [place], [address], [place]. tel:[phone] [facility], [address], [place], [place], [id number], [place] tel:[phone] [facility] No Information Sep-1 0-200 9 Conor Cabral. [address] , [address], [place], [address], [place]. tel:[phone] [facility], [address], [place], [place], [id number], [place] tel:[phone] [facility] No Information 3200 8 Conor [address]. [address] , [address], [place], [address], [place]. tel:[phone] [facility], [address], [place], [place], [id number], [place] tel:[phone] [facility] No Information 7 Conor Cabral. [address] [facility] [address] [address] , [address], [place], [place], [place], [place]. tel:[phone] [facility], [address], [place], [place], [id number], [place] tel:[phone] [facility] No Information 1200 7 Conor [address]ral. [address], [place], [place], [place], [place]. tel:[phone] [facility], [address], [place], [place], [id number], [place] tel:[phone] [facility] No Information 0 7 Conor Cabral. [address], [address], [place], [place], [place], [place]. tel:[phone] Office/outpat ient Visit, Est [facility], [address] [place] [address] [address], [place], [place], [address], [place] tel:[phone] [facility] No Information 7 [address]. [address] , [address], [place], [place], [place], [place]. tel:[phone] Referring Provider: Misha Flores, [facility] [address], [place], [address]. tel:[phone] Family History Family Member Type Diagnosis Age At Onset No Information Payers Payer name Insurance type Covered green party ID Authoriza tion(s) [place] [id number] Social History Type Description Quantity Date Captured [...]
--- OUTSIDE RECORDS SUMMARY | 2024-10-19 10:23 | XMS_ITS ---
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
--- OUTSIDE RECORDS SUMMARY | 2024-10-19 10:24 | XMS_ITS | Clinical Summary ---
Author Organization Unknown Care Team Providers Care Silk Screen Printer Helper Name Role Phone KENNETH CLINICAL DOCUMENTATION MANAGER, VALERIO Unavailable Unavailable CADE PHYSICAL THERAPIST, CAMILLE Unavailable Unavailable DEBBIE B OPERATOR, TINY Unavail able Unavailable RAQUEL REGISTERED NURSE ENGINE DYNAMOMETER TESTER, RUSS Mera vailable Unavailable NGUYEN ROCA COUNSELOR, [...] TO LARGE INTESTINE Active 06-28 00:00: 00 MILEAGE CLERK (CURRENT) USE OF ANTIBIOTICS Active 06-28 00:00: 00 PENITENTIARY (CURRENT) USE OF ANTICOAGULAN TS Active 06-28 00:00: 00 OTHER PENITENTIARY (CURRENT) DRUG THERAPY Active 06-28 00:00: 00 [...] 300 mg tablet 07-18 00:00: 00 Yes [id number] HELP WITH SIDE EFFECTS OF BRUKINSA 1 tablet ONCE DAILY 1 tablet ONCE DAILY (route: oral) Med Classific ation: Gout and Hyperuric emia Therapy Brukinsa 80 mg capsule 07-18 00:00: 00 Yes [id number] CANCER 2 capsule TWICE DAILY 2 capsule TWICE DAILY (route: oral) Med Classific ation: Antineopl astics calcium 500 mg (as calcium carbonate 1,250 mg) tablet 07-18 00:00: 00 Yes [id number] SUPPLEMENT 1 tablet ONCE DAILY 1 tablet ONCE DAILY (route: oral) Med Classific ation: Electroly te Balance-N utritiona l Products Dulcolax (bisacodyl) 5 mg tablet,alessio yed release 07-18 00:00: 00 Yes [id number] CONSTIPATIO N 1 tablet ONCE DAILY 1 tablet ONCE DAILY (route: oral) Med Classific ation: Gastroint estinal Therapy Agents Eliquis 2.5 mg tablet 07-18 00:00: 00 Yes [id number] PREVENT CLOTS 1 tablet TWICE DAILY 1 tablet TWICE DAILY (route: oral) Med Classific ation: Hematolog ical Agents hydrocodone 10 mg-acetamin ophen 325 mg tablet 07-18 00:00: 00 09-14 23:59 :00 No [id number] PAIN 1 tablet 3 TIMES DAILY 1 tablet 3 TIMES DAILY (route: oral) Med Classific ation: Analgesic , Anti-infl ammatory or Antipyret ic metoprolol tartrate 25 mg tablet - 00:00: 00 Yes [id number] HYPERTENSIO N 1 tablet TWICE DAILY 1 tablet TWICE DAILY (route: oral) Med Classific ation: Cardiovas cular Therapy Agents Miralax 17 gram/dose oral powder 07-18 00:00: 00 Yes [id number] CONSTIPATIO N Per instruc tions ONCE DAILY Per instructio ns ONCE DAILY (route: oral) Med Classific ation: Gastroint estinal Therapy Agents Vitamin D3 10 mcg (400 unit) tablet 07-18 00:00: 00 Yes [id number] SUPPLEMENT 1 tablet ONCE DAILY 1 tablet ONCE DAILY (route: oral) Med Classific ation: Electroly te Balance-N utritiona l Products acetaminoph en 325 mg capsule 07-28 00:00: 00 Yes [id number] PAIN 2 capsule EVERY 6 HOURS 2 capsule EVERY 6 HOURS (route: oral) Med Classific ation: Analgesic , Anti-infl ammatory or Antipyret ic amoxicillin 875 mg-potassiu m clavulanate 125 mg tablet 08-23 00:00: 00 09-05 23:59 :00 No [id number] DYSURIA 1 tablet TWICE DAILY 1 tablet TWICE DAILY (route: oral) Med Classific ation: Anti-Infe ctive Agents Gemtesa 75 mg tablet 08-18 00:00: 00 Yes [id number] OVERACTIVE BLADDER 1 tablet ONCE DAILY 1 tablet ONCE DAILY (route: oral) Med Classific ation: Genitouri nary Therapy ciprofloxac in 500 mg tablet 09-05 00:00: 00 09-19 23:59 :00 No [id number] COLO/VAGINA L FISTULA AND URINARY TRACT INFECTION 1 tablet TWICE DAILY 1 tablet TWICE DAILY (route: oral) Alternate Route: BY MOUTH. Med Classific ation: Anti-Infe ctive Agents metronidazo le 500 mg tablet 09-05 00:00: 00 09-19 23:59 :00 No [id number] COLO/VAGINA L FISTULA 1 tablet TWICE DAILY 1 tablet TWICE DAILY (route: oral) Alternate Route: BY MOUTH. Med Classific ation: Anti-Infe ctive Agents azelastine 137 mcg (0.1 %) nasal spray 09-17 00:00: 00 Yes [id number] ALLERGIES 1 spray TWICE DAILY 1 spray TWICE DAILY (route: nasal) Alternate Route: NOSTRIL - BOTH. Med Classific ation: Respirato ry Therapy Agents cetirizine 10 mg tablet 09-17 00:00: 00 Yes [id number] ALLERGIES 1 tablet ONCE DAILY 1 tablet ONCE DAILY (route: oral) Med Classific ation: Respirato ry Therapy Agents mecobalamin (vitamin B12) 1,000 mcg chewable tablet 09-17 00:00: 00 Yes [id number] LOW VITAMIN B 1 tablet ONCE DAILY 1 tablet ONCE DAILY (route: oral) Med Classific ation: Electroly te Balance-N utritiona l Products Immunizations Ordered Immunization Name Filled Immunization Name Date Status Comments Refusal Reason INFLUENZA, TIV (INACTIVATED) 2024-07-19 00:00:00 PNEUMOCOCCAL (PPV), PPV 2024-07-19 00:00:00 Vital Signs Vital Name Observation Time Observation Value Commen ts Temperature 2024-10-18 11:35:00.000 98.5 [degF] Temperature 2024-10-17 14:57:00.000 97.8 [degF] Temperature 2024-10-11 14:06:00.000 98.4 [degF] Temperature 2024-10-10 09:21:00.000 97.9 [degF] Temperature 2024-10-04 15:05:00.000 97.6 [degF] Temperature 2024-10-04 10:13:00.000 98.1 [degF] Temperature 2024-09-28 10:57:00.000 97.8 [degF] Temperature 2024-09-28 10:13:00.000 97.8 [degF] Temperature 2024-09-21 14:36:00.000 97.9 [degF] Temperature 2024-09-21 09:13:00.000 98.6 [degF] Pulse 2024-10-18 11:35:00.000 74 /min Pulse 2024-10-17 14:57:00.000 76 /min Pulse 2024-10-11 14:06:00.000 74 /min Pulse 2024-10-10 09:21:00.000 70 /min Pulse 2024-10-04 15:05:00.000 72 /min Pulse 2024-10-04 10:35:00.000 70 /min Pulse 2024-09-28 10:57:00.000 72 /min Pulse 2024-09-28 10:13:00.000 72 /min Pulse 2024-09-21 14:36:00.000 76 /min Pulse 2024-09-21 09:13:00.000 66 /min O2 Saturation (%) 2024-10-17 14:57:00.000 96 % O2 Saturation (%) 2024-10-11 14:06:00.000 97 % O2 Saturation (%) 2024-10-10 09:21:00.000 97 % O2 Saturation (%) 2024-10-04 15:05:00.000 97 % O2 Saturation (%) 2024-10-04 10:13:00.000 98 % O2 Saturation (%) 2024-09-28 10:57:00.000 98 % O2 Saturation (%) 2024-09-28 10:13:00.000 98 % O2 Saturation (%) 2024-09-21 14:36:00.000 98 % O2 Saturation (%) 2024-09-21 09:13:00.000 98 % Respirations 2024-10-18 11:35:00.000 20 /min Respirations 2024-10-17 14:57:00.000 18 /min Respirations 2024-10-11 14:06:00.000 20 /min Respirations 2024-10-10 09:21:00.000 18 /min Respirations 2024-10-04 15:05:00.000 20 /min Respirations 2024-10-04 10:13:00.000 18 /min Respirations 2024-09-28 10:57:00.000 18 /min Respirations 2024-09-28 10:13:00.000 18 /min Respirations 2024-09-21 14:36:00.000 18 /min Respirations 2024-09-21 09:13:00.000 16 /min Weight (lbs) 2024-10-18 11:35:00.000 93 [lb_av] Weight (lbs) 2024-10-11 14:06:00.000 93 [lb_av] Weight (lbs) 2024-10-04 10:20:00.000 96 [lb_av] Weight (lbs) 2024-09-28 10:57:00.000 103 [lb_av] Weight (lbs) 2024-09-21 09:21:00.000 103 [lb_av] Systolic Blood Pressure 2024-10-18 11:35:00.000 106 mm [Hg] Systolic Blood Pressure 2024-10-17 14:57:00.000 118 mm [Hg] Systolic Blood Pressure 2024-10-11 14:06:00.000 102 mm [Hg] Systolic Blood Pressure 2024-10-10 09:21:00.000 122 mm [Hg] Systolic Blood Pressure 2024-10-04 15:05:00.000 114 mm [Hg] Systolic Blood Pressure 2024-10-04 10:13:00.000 104 mm [Hg] Systolic Blood Pressure 2024-09-28 10:57:00.000 112 mm [Hg] Systolic Blood Pressure 2024-09-28 10:13:00.000 112 mm [Hg] Systolic Blood Pressure 2024-09-21 14:36:00.000 102 mm [Hg] Systolic Blood Pressure 2024-09-21 09:13:00.000 100 mm [Hg] Diastolic Blood Pressure 2024-10-18 11:35:00.000 60 mm [Hg] Diastolic Blood Pressure 2024-10-17 14:57:00.000 76 mm [Hg] Diastolic Blood Pressure 2024-10-11 14:06:00.000 72 mm [Hg] Diastolic Blood Pressure 2024-10-10 09:21:00.000 74 mm [Hg] Diastolic Blood Pressure 2024-10-04 15:05:00.000 66 mm [Hg] Diastolic Blood Pressure 2024-10-04 10:13:00.000 68 mm [Hg] Diastolic Blood Pressure 2024-09-28 10:57:00.000 [...] CARE PLAN: DR. JENELLE MEDEROS, VALERIO COOPER, ART; DR. OTIS URRUTIA, DR. CHAD TOLENTINO, DR. [...] CONSULTING ON THE CERTIFIED CARE PLAN: VALERIO PINA, ART; DR. OTIS URRUTIA, DR. CHAD TOLENTINO, DR. [...] Notes Progress Notes <paragraph>[Visit Date: 2024 by NOEMI VILLASENOR LICENSED PRACTICAL NURSE]:</paragraph><paragraph>DR. MEDEROS (ONCOLOGY) 10/26 DR. AUSTIN AGUSTIN (CARDIO) 11/14 DR. URRUTIA (PCP) 12/18 PTNT BEING SEEN BY SN FOR CLL. PTNT TAKING HER ORAL CHEMO DAILY. SN GREETED AT DOOR BY PTNT DAUGHTER BRITTANI. ENTERED HOME TO FIND PTNT RESTING IN LIFT CHAIR WITH LEGS IN DEPENDANT POSITION. PTNT CG PRESENT DURING VISIT. NO MED CHANGES. PATIENT HAS LARGE BRUISE TO HER LEFT ORBITAL SOCKET AND EXTENDING TO HER FORHEAD WITH A SWELLING JUST ABOVER THE EYEBROW. STATES SHE FELL COMING INTO THE HOME ON WEDNESDAY. HEAD STRIKE, NO LOC. NO ER VISIT OR ASSESSMENT, PHYSCIAN HAS BEEN NOTIFIED BY PHYSICAL THERAPIST WITH THIS AGENCY ON 10/17/24 WITH NNO GIVEN. PATIENT HAS LOST 1LB SINCE LAST WEEK. DAUGHTER KEEPING TRACK OF INTAKE, ENCOURAGED EATING A COUPLE MORE BITES AT EACH MEAL. STILL NOT DRINKING ENOUGH FLUIDS, SN AGAIN ENCOURAGED HOURLY 6 OUNCE FLUID INTAKE AND CALORIE COUNT DAILY. PATIENT NEEDS 2000KCAL PER DAY AND 64-84 OUNCES OF FLUID. PATIENT CONTINUES TO BE RESISTANT. . PTNT ANOX4, ACTIVELY PARTICIPATING IN CARE WITH PLEASANT AFFECT, VERY FORGETFUL AND [place]ICHITA. COMPREHENSIVE ASSESSMENT COMPLETED. VSS, HR IRREG, LUNGS CTA, BSX4, ABD SOFT NONTENDER, LBM 10/19/23. NO EDEMA, +2 PEDAL PULSES. PTNT DENIES, CHEST PAIN, FEVER, CHILLS, AND SOB. SKIN CHECK COMPLETED. PTNT DEMONSTRATES NO BREAKDOWN IN SKIN INTEGRITY. WEIGHT 93 LBS. PTNT STATES FREQUENT BACK PAIN CURRENTLY CONTROLLED WITH OTC PAIN RELIEVER TYLENOL PTNT/CG INSTRUCTED ON COPING WITH CANCER/TREATMENT. INSTRUCTED ON EXPECTED SIDE EFFECTS AND WARNING SIGNS. PTNT STABLE AT DEPARTURE FROM HOME. PTNT/CG VERBALIZED UNDERSTANDING OF ALL EDUCATION PROVIDED. PTNT/CG DENY ADDITIONAL QUESTIONS/CONCERNS AND VERBALIZE SATISFACTION WITH CARE AT END OF VISIT.</paragraph> <paragraph>[Visit Date: 2024 by TINY LEWIS B OPERATOR]:</paragraph><paragraph>10/15/24. PATIENT WAS AMBULATING WITH HER DAUGHTER IN FROM THE [place]. PATIENT TRIPPED OVER THE THRESHOLD AND FELL [place] ON LEFT SIDE. PATIENT HAS A SMALL ABRASION TO HER LEFT KNEE AND BRUISING TO HER LEFT FOREHEAD AND EYE. DAUGHTER WAS ABLE TO ASSIST PATIENT UP TO A CHAIR. PATIENT DENIES ANY HEADACHE OR INCREASED PAIN AT THIS TIME. PATIENT/ CAREGIVER DECLINE THE NEED FOR PATIENT TO BE ASSESSED IN THE ER. INSTRUCTED PATIENT/CAREGIVER IN PATIENT ALWAYS HAVING ASSISTANCE TO GO OUT ON PORCH. REPORTED FALL TO CAMILLE MOHAMUD PT AND RUSS GARCÍA RN. REPORTED FALL TO ELOY AT VALERIO COOPER CLINICAL DOCUMENTATION MANAGER OFFICE.</paragraph> Encounters Start Date/Time End Date/Time Encounter Type Admission Type Attending Clinicians Care Facility Care Department Encounter ID Discharge Date Discharge Status Discharge Condition Discharge Reason Percent Goals Met 2024-07-19 00:00:00 2024-11-15 00:00:00 Outpatient RECERTIFIC ATION RUSS GARCÍA [facility] [id number] 53.57
--- OUTSIDE RECORDS SUMMARY | 2024-10-19 10:24 | XMS_ITS | Referral Summary ---
Author Organization [facility] [place] [address] Address [address] [place] [address] Care Team Providers Care Lung Gun Operator Name Role Phone Eliseo Waters DO Primary Care Provider [phone]- [phone] Encounters Date Type Department Care Team Description 09/11/2024 Results Follow-Up [facility] Emergency Department [id number] [address] Sharon Regalado PA 09/08/2024 12:27 PM CDT - 09/08/2024 4:[address] [facility] Emergency Department [id number] [address] Idalmis Chapin MD Heilmann, Adam David, MD Bacteriuria, asymptomatic (Primary Dx) Discharge Disposition: Discharge to home or self care 07/31/[address] [facility] Cardiology [address] [place] [address] Aldo Morelos MD Med Refill from Last 3 Months Allergies No known [...] d, po solid 400 unit TabletPOdailyCurrent Medication Active folic acid (FOLVITE) 800 mcg tablet 08/08/2014Folic acid, po solid 0.8 mg TabletPOdailyCurrent Medication Active HYDROcodone- acetaminophe n (NORCO) 5-325 mg per tablet Take by mouth every 6 (six) hours as needed Act debby lisinopriL (PRINIVIL,ZE STRIL) 5 mg tablet 08/08/2014Lisinopril, po solid 5 mg TabletPOdailyCurrent Medication Active oxyBUTYnin XL (DITROPAN-XL ) 5 mg [...] on file Legal Sex Female 11:42 PM RECREATION 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 Source: [employer] Current Interpretive Data was last revised on [...] Reflex to microscopic UA will be performed. [facility] Urine 09/08/2024 1:56 PM CDT 09/08/2024 1:59 PM CDT Idalmis Chapin MD LAB MICROBIOLOGY - GENERAL ORDERABLES Final Result Performing Organization Address [facility] Co de Phone Number [facility] [address] [address] * (ABNORMAL) Urinalysis, microscopic only (09/08/2024 1:56 PM CDT) WBC, ur >50(A) 0 - 5 /HPF RBC, ur 21-50(A) 0 - 2 /HPF CERNER [facility] Epithelial cells, squamous, ur 11-20(A) 0 - 5 /HPF [facility] Mucous, ur Present(A) [facility] Culture Reflex Comment Reflex to urine culture will be performed. ADITYA [facility] Urine 09/08/2024 1:56 PM CDT 09/08/2024 1:59 PM CDT Idalmis Chapin MD LAB URINE ORDERABLES Final Result Performing Organization Address [facility] de Phone Number ADITYA BERNABECH [phone] [place] [address] * (ABNORMAL) Urine culture Urine (09/08/2024 1:56 PM CDT) Report Final Report: Greater than or equal to 100,000 colonies/ml of Enterococcus faecium (.) Comment:Testing performed by : [facility] [address] [facility], [place]., [address] Organism EN[facility]US [facility]ECIUM [facility] Urine 09/08/2024 1:56 PM CDT 09/08/2024 4:49 PM CDT Narrative AD[facility]A [facility] - 09/11/2024 7:41 AM CDT Urine culture reflexed based upon urinalysis results. Organism Antibiotic Method Susceptibility Enterococcus faecium Ampicillin (DENIS) INTERPRETATION Resistant Enterococcus faecium Linezolid (DENIS) INTERPRETATION Susceptible Enterococcus faecium Nitrofurantoin (DENIS) INTERPRETATI ON Intermediate Enterococcus faecium Tetracycline (DENIS) INTERPRETATION Resistant Enterococcus faecium Vancomycin (DENIS) INTERPRETATION Resistant us Lj Oconnor MD LAB MICROBIOLOGY - GENERA L ORDERABLES Final Result Performing Organization Address City/[facility]/ZIP Co de Phone Number ADITYA [facility] [address] [address] * (ABNORMAL) eGFR (09/08/2024 12:30 PM CDT) [...] 0 PM CDT 09/08/2024 12:30 PM CDT us Idalmis Chapin MD LAB BLOOD ORDERABLES Final Result Performing Organization Address City/[facility]/ZIP Co de Phone Number ADITYA [facility] [address] [place] [address] * (ABNORMAL) CBC with auto differential (09/08/2024 12:30 PM CDT) [facility] WBC 117.8(C) 3.8 - 9.9 K/cumm Comment:Critical result call ed to and read back by MARIBEL CA RN on 09 08 2024 at 1311 to [employer] [facility]. Hgb 11.4(L) 11.9 - 15.5 g/dL [facility] Hct 37.6 35.6 - 45.5 % [facility] Plt 248 150 - 400 K/cumm [facility] MPV 10.9 9.1 - 12.3 fL [facility] RBC 3.78(L) 3.90 - 5.20 M/cumm [facility] MCV 99.5(H) 81.3 - 96.4 fL [facility] MCH 30.2 27.1 - 33.3 pg [facility] MCHC 30.3(L) 32.3 - 35.7 g/dL [facility] RDW CV 18.1(H) 11.1 - 14.9 % [facility] RDW SD 61.5(H) 35.7 - 48.1 fL [facility] NRBC abs 0.00 0.00 - 0.01 K/cumm [facility] Blood Venous blood specimen / Unknown 09/08/2024 12:30 PM CDT 09/08/2024 12:30 PM CDT Idalmis Chapin MD LAB BLOOD ORDERABLES Final Result [facility] [address] [facility]. [facility] [place] [address] * (ABNORMAL) Manual Differential (09/08/2024 12:30 PM CDT) [facility] Differential Manual Cells Counted 100 [facility] Neutrophil abs 3.5 1.5 - 6.5 K/cumm [facility] Lymphocyte abs 113.1(H) 0.8 - 3.3 K/cumm [facility] Monocyte abs 0.0(L) 0.2 - 0.8 K/cumm [facility] Basophil abs 1.2(H) 0.0 - 0.1 K/cumm [facility] Neutrophil pct 3.0 % [facility] Comment: Interpretive Data Percent cell count reference ranges are not reported, since discordance with absolute values may lead to misinterpretation of CBC data. Current Interpretive Data was last revised on 2017. Lymphocyte pct 96.0 % [facility] Comment: Interpretive Data Percent cell count reference ranges are not reported, since discordance with absolute values may lead to misinterpretation of CBC data. Current Interpretive Data was last revised on 2017. Basophil pct 1.0 % [facility] Comment: Interpretive Data Percent cell count reference ranges are not reported, since discordance with absolute values may lead to misinterpretation of CBC data. Current Interpretive Data was last revised on 2017. RBC morphology Normal [facility] Platelet estimate Automated Count Confirmed [facility] Blood 09/08/2024 12:3 0 PM CDT 09/08/2024 12:30 PM CDT Idalmis Chapin MD LAB BLOOD ORDERABLES Final Result [facility] [address] [facility]. [place] [address] * (ABNORMAL) Comprehensive metabolic panel (09/08/2024 12:30 PM CDT) Pathologist [facility] Sodium 137 135 - 145 mmol/L Potassium, pl 4.8 3.3 - 4.9 mmol/L [facility] Chloride 104 97 - 110 mmol/L [facility] CO2 22 22 - 32 mmol/L [facility] Anion gap 12 2 - 15 mmol/L [facility] BUN 17 6 - 25 mg/dL [facility] Creatinine 1.10 0.60 - 1.10 mg/dL [facility] Glucose 132 70 - 199 mg/dL [facility] Comment: Interpretive Data Fasting glucose >/= 126 [...] classification and Diagnosis of Diabetes Diabetes Care 202; 46: S19-S40. 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
--- OUTSIDE RECORDS SUMMARY | 2024-10-19 10:24 | XMS_ITS | Clinical Summary ---
Author Organization [facility] [address] Address [address] [place] [address] Care Team Providers Care Glass Technologist Name Role Phone Eliseo Waters DO Primary Care Provider +1- [phone] Allergies No known active allergies Medications ferrous [...] Department Care Team Description 09/11/2024 Results Follow-Up [facility] Emergency Department [address] [address] Sharon Regalado PA 09/08/2024 12:27 PM CDT - 09/08/2024 4:41 PM CDT Emergency [facility] Emergency Department [address] [address] Idalmis Chapin MD Heilmann, Adam David, MD Bacteriuria, asymptomatic (Primary Dx) Discharge Disposition: Discharge to home or self care 07/31/2024 Telephone [facility] Cardiology [address] [place] [address] Aldo Morelos MD Med Refill from Last 3 Months Surgical History Surgery [...] on file Legal 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 Source: [facility] [employer] Current Interpretive Data was last revised on [...] - GENERAL ORDERABLES Final Result ADITYA BERNABEW[facility] [address] [facility] [address] * (ABNORMAL) Urinalysis, microscopic only (09/08/2024 1:56 PM CDT) WBC, ur >50(A) 0 - 5 /HPF RBC, ur 21-50(A) 0 - 2 /HPF [facility] Epithelial cells, squamous, ur 11-20(A) 0 - 5 /HPF [facility] Mucous, ur Present(A) [facility] Culture Reflex Comment Reflex to urine culture will be performed. [facility] Urine 09/08/2024 1:56 PM CDT 09/08/2024 1:59 PM CDT us Idalmis Chapin MD LAB URINE ORDERABLES Final Result Performing Organization Address [facility] Co de Phone Number [facility] [address] [employer] [place], [place] [id number] * (ABNORMAL) Urine culture Urine (09/08/2024 1:56 PM CDT) Report Final Report: Greater than or equal to 100,000 colonies/ml of Enterococcus faecium (.) Comment:Testing performed by : [facility], [address] [place] [address], [place]., [address] Organism ENTEROCOCCUS FAECIUM [facility] Urine 09/08/2024 1:56 PM CDT 09/08/2024 4:49 PM CDT Narrative [facility] - 09/11/2024 7:41 AM CDT Urine culture reflexed based upon urinalysis results. Organism Antibiotic Method Susceptibility Enterococcus faecium Ampicillin (DENIS) INTERPRETATION Resistant Enterococcus faecium Linezolid (DENIS) INTERPRETATION Susceptible Enterococcus faecium Nitrofurantoin (DENIS) INTERPRETATI ON Intermediate Enterococcus faecium Tetracycline (DENIS) INTERPRETATION Resistant Enterococcus faecium Vancomycin (DENIS) INTERPRETATION Resistant us Lj Oconnor MD LAB MICROBIOLOGY - GENERA L ORDERABLES Final Result Performing Organization Address [facility] Co de Phone Number ADITYA BERNABEWCH [address] [employer] [place], [place] [id number] * (ABNORMAL) eGFR (09/08/2024 12:30 PM CDT) [...] MD LAB BLOOD ORDERABLES Final Result [facility] [address] [facility]. [place] [address] * (ABNORMAL) CBC with auto differential (09/08/2024 12:30 PM CDT) WBC 117.8(C) 3.8 - 9.9 K/cumm Comment:Critical result call ed to and read back by MARIBEL CA RN on 09 08 2024 at 1311 to Kathy Friedman. Hgb 11.4(L) 11.9 - 15.5 g/dL [facility] Hct 37.6 35.6 - 45.5 % [facility] Plt 248 150 - 400 K/cumm [facility] MPV 10.9 9.1 - 12.3 fL [facility] RBC 3.78(L) 3.90 - 5.20 M/cumm [facility] MCV 99.5(H) 81.3 - 96.4 fL [facility] MCH 30.2 27.1 - 33.3 pg [facility]ER W MCHC 30.3(L) 32.3 - 35.7 g/dL [facility] RDW CV 18.1(H) 11.1 - 14.9 % [facility] RDW SD 61.5(H) 35.7 - 48.1 fL [facility] NRBC abs 0.00 0.00 - 0.01 K/cumm [facility] Blood Venous blood specimen / Unknown 09/08/2024 12:30 PM CDT 09/08/2024 12:30 PM CDT Idalmis Chapin MD LAB BLOOD ORDERABLES Final Result [facility] [address] [facility]. [facility] [place] [address] * (ABNORMAL) Manual Differential (09/08/2024 12:30 PM CDT) Differential Manual Cells Counted 100 [facility] Neutrophil abs 3.5 1.5 - 6.5 K/cumm [facility] W Lymphocyte abs 113.1(H) 0.8 - 3.3 K/cumm [facility] Monocyte abs 0.0(L) 0.2 - 0.8 K/cumm [facility] Basophil abs 1.2(H) 0.0 - 0.1 K/cumm [facility] Neutrophil pct 3.0 % [facility] Comment: Interpretive Data Percent cell count reference ranges are not reported, since discordance with absolute values may lead to misinterpretation of CBC data. Current Interpretive Data was last revised on 2017. Lymphocyte pct 96.0 % [facility] Comment: Interpretive Data Percent cell count reference ranges are not reported, since discordance with absolute values may lead to misinterpretation of CBC data. Current Interpretive Data was last revised on 2017. Basophil pct 1.0 % [facility] Comment: Interpretive Data Percent cell count reference ranges are not reported, since discordance with absolute values may lead to misinterpretation of CBC data. Current Interpretive Data was last revised on 2017. RBC morphology Normal [facility] Platelet estimate Automated Count Confirmed [facility] Blood 09/08/2024 12:3 0 PM CDT 09/08/2024 12:30 PM CDT us Idalmis Chapin MD LAB BLOOD ORDERABLES Final Result [facility] [address] [place] [address] * (ABNORMAL) Comprehensive metabolic panel (09/08/2024 12:30 PM CDT) Pathologist [facility] [place] Sodium 137 135 - 145 mmol/L Potassium, [...] MD LAB BLOOD ORDERABLES Final Result [facility] [address] [facility]. 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
--- OUTSIDE RECORDS SUMMARY | 2024-10-19 10:24 | XMS_ITS | Clinical Summary ---
Author Organization [facility] Address [address] [place] [address] Care Team Providers Care Cow Rider Name Role Phone Evelin Eliseo Sudarshan FENG [...] Type Department Care Team Description 09/11/2024 Abstract [facility] Oncology and Hematology [facility] [address] [facility] [phone] Nicholas Gibson MD 09/11/2024 Telephone [facility] Oncology and Hematology - [place] [address] [facility] [place] [address] Nicholas Gibson MD Surgical Clearance 09/06/2024 Telephone [facility] Oncology and Hematology [facility] [address] [place] [phone] Nicholas Gibson MD Medication Review 09/06/2024 Abstract [facility] Oncology and Hematology [facility] [address] [place] [address] Nicholas Gibson MD 08/29/2024 Abstract [facility] Oncology and Hematology [facility] [address] [place] [phone] Nicholas Gibson MD 08/28/2024 Abstract [facility] Oncology and Hematology [facility] [address] [place] [address] Nicholas Gibson MD 08/23/2024 2:45 PM DRINKING WATER TECHNICIAN Office Visit [facility] Oncology and Hematology [facility] [address] [place] [address] Nicholas Gibson MD CLL (chronic lymphocytic leukemia) ([facility]/HCC) (Primary Dx) 08/17/2024 Orders Only [facility] Oncology and Hematology [facility] [address] [facility] [place] [address] Nicholas Gibson MD 08/16/2024 External Device Data STL ABSTRACTION Provider, Abstract 08/11/2024 Abstract [facility] Oncology and Hematology - [place] [address] [facility] [place] [address] Nicholas Gibson MD 08/08/2024 [facility] Oncology and Hematology - [place] [address] Nicholas Gibson MD Surgical Clearance 08/07/2024 [facility] Oncology and Hematology - [place] [address] [place] [phone] Nicholas Gibson MD Lab Results 08/07/2024 [facility] Oncology and Hematology - [address] [place] [phone] Nicholas Gibson MD Labs Only 08/03/2024 [facility] Oncology and Hematology - [address] [place] [phone] Nicholas Gibson MD 07/25/2024 Orders Only [facility] Oncology and Hematology - [address] [place] [phone] Nicholas Gibson MD 07/25/2024 [facility] Oncology and Hematology - [address] [place] [address] Nicholas Gibson MD Medication Review from Last 3 Months Family History Medical [...] Comments Blood Pressure 107/65 08/23/2024 2:42 PM DRINKING WATER TECHNICIAN Pulse 65 08/23/2024 2:42 PM DRINKING WATER TECHNICIAN Temperature 36.7 C (98.1 F) 08/23/2024 2:42 PM DRINKING WATER TECHNICIAN Respiratory Rate 14 08/23/2024 2:42 PM DRINKING WATER TECHNICIAN Oxygen Saturation 95% 08/23/2024 2:4 2 PM DRINKING WATER TECHNICIAN Inhaled Oxygen Concentration - - Weight 44.4 kg (97 lb 12.8 oz) 08/23/2024 2:42 PM DRINKING WATER TECHNICIAN Patient stated that she has no appetite so shes been losing weight Height 147.3 cm (4' 10 ) 10/06/2023 12: 32 PM CDT Body Mass Index 20.44 10/06/2023 12:32 PM CDT Plan of Treatment Upcoming Encounters Date Type Department Care Team (Late st Contact Info) Description 10/26/2024 1:00 PM CDT Office Visit [facility] Oncology and Hematology - [place] [address] [facility] [address] [place] [address] Nicholas Gibson MD [address] [facility] [address] [place] [address] Health Maintenance Due Date Last Done Comments DTAP/TDAP/TD VACCINES (1 - Tdap) 09[birth year]16/1954 PNEUMOCOCCAL VACCINE 50+ YEARS (1 of 2 - PCV) 09/16/18 55 ZOSTER VACCINE (1 of 2) 09[birth year]16/1954 OSTEOPOROSIS SCREENING 09/16/2000 RSV VACCINE (60+ or ) (1 - 1-dose 75+ series) 09/16/2010 INFLUENZA VACCINE (#1) 2024 Procedures Procedure Name Priority Date/Time Associated Diagnosis Comments CBC WITH AUTODIFFERENTIAL Routine 2024 1:02 PM DRINKING WATER TECHNICIAN from Last 3 Months Results * CBC WITH AUTODIFFERENTIAL (08/16/2024 1:02 PM DRINKING WATER TECHNICIAN) Blood us Nicholas Gibson MD HEMATOLOGY ORDERABLES Final Res ult from Last 3 Months Insurance AETNA PPO [facility] AETNA PPO [facility] RX AETNA Medicare Part D Care Teams Cow Rider Relationship Specialty Start Date End Date Eliseo Waters DO [address] [address] PCP - General Internal Medicine 03/24/24
[2024-10-19 12:02] LABS: Iron 70 ug/dL (37-170); Percent Iron Saturation 27 % (20-50)
== END 2024-10-19 09:31 | disposition home or self-care (01) ==
LOC: ANHLAB 09:32
PROVIDERS: PCP Internal Medicine; Visit Provider Internal Medicine Hematology & Oncology
DX: C91.10 Chronic lymphocytic leukemia of B-cell type not having achieved remission (principal)
CPT/HCPCS: 36415; 80048; 82728; 83540; 83550; 85025

== ENCOUNTER 2024-11-09 13:10 | Emergency (ER) | payer MEDICARE, SELFPAY ==
--- NOTE | ~2024-11-09 | CT_ITS ---
CT abdomen pelvis w con Ordering provider: Jackson De Leon MD History: 89 years Female with . lower abdominal pain, know intramural abscess . Comparison: October 02, 2024 Technique: CT abdomen and pelvis with IV and without oral contrast. Automated exposure control and it erative reconstruction technique were employed. The dose-length product was 309.70 mGy-cm. 100 mL Omn ipaque 350 was given IV. Findings: VISUALIZED LOWER CHEST: Dependent atelectatic changes. Cardiomegaly. UPPER ABDOMINAL ORGANS: Liver: Normal. Gallbladder: Status post cholecystectomy. Spleen: Tiny cyst in the anterior portion measuring 5.3 mm. Otherwise, Normal. Stomach/duodenum: Normal. Pancreas: Normal. Slightly prominent pancreatic duct. Adrenals: Normal. Kidneys: Fullness of the bilateral renal pelvis. PELVIC ORGANS: The bladder is normal. BOWEL AND MESENTERY: Colon: No evidence of diverticulitis. Slight enhancement in the left wall of the sigmoid colon is see n with intramural abscess which appear unchanged and measures 2 cm. 2 small abscesses are seen which measures 1.4 and 0.6 cm. Contrast is seen in the posterior aspect of the areas distally which may indicate blood or calcification. Clinical correlation and follow-up adv ised. The appendix is not demonstrated. Small Bowel: Normal. No obstruction. Peritoneum/mesentery: No free air or free fluid. No mesenteric lymphadenopathy. RETROPERITONEUM: Mild atheromatous disease of the abdominal aorta. No retroperitoneal lymphadenopat hy. MUSCULOSKELETAL: Superficial soft tissues: The superficial soft tissues are normal. Bones: Age appropriate degenerative changes of the spine. Vertebroplasty in T8 and T10. Dextroscolios is. IMPRESSION: 1. Intramural abscess in the sigmoid colon unchanged from previous examination. 2. Hypodensities in the perianal area which may indicate abscesses. Increased density is seen in the se areas which may be calcification or contrast extravasation. Clinical correlation is advised. Reviewed, dictated and finalized at location A. IMPRESSION: 1. Intramural abscess in the sigmoid colon unchanged from previous examination . 2. Hypodensities in the perianal area which may indicate abscesses. Increased density is seen in these areas which may be calcification or contrast extravasa tion. Clinical correlation is advised.
--- NOTE | ~2024-11-09 | CT_ITS ---
CT brain wo con Ordering provider: Jackson De Leon MD History: 89 years Female with . recent fall . Comparison: July 20, 2024 Technique: CT of the head without contrast. Radiation reduction technique utilized.The dose-length pr oduct was 605.33 mGy-cm. FINDINGS: BRAIN PARENCHYMA AND CSF SPACES: Mild leukoaraiosis and diffuse cortical atrophy. Mild atheromatous d isease. No midline shift, mass effect or hemorrhage. The brain parenchyma and CSF spaces are otherwi se normal. VISUALIZED PARANASAL SINUSES: Well aerated. MASTOIDS: Well aerated. BONES: The bones appear intact. SOFT TISSUES: Visualized nasopharynx is normal. Superficial soft tissues are normal. IMPRESSION: No acute intracranial findings. Reviewed, dictated and finalized at location A.
[2024-11-09 13:15] VITALS: BP 114/71; PULSE 66; RESP 18; TEMP 36.4; O2SAT 98
--- OUTSIDE RECORDS SUMMARY | 2024-11-09 13:15 | XMS_ITS | Referral Summary ---
Author Organization [facility] [address] Address [address] [place] [address] Care Team Providers Care District Sales Coordinator Name Role Phone Eliseo Waters DO Primary Care Provider +1- [phone] Encounters Date Type Department Care Team Description 09/11/2024 Results Follow-Up [facility] Emergency Department [address] [address] Sharon Regalado PA 09/08/2024 12:27 PM CDT - 09/08/2024 4:41 PM CDT Emergency [facility] Emergency Department [address] [address] [address] Idalmis [place]in MD Heilmann, Adam David, MD [...] 7 days 21 tablet 03/16/20 24 Active Eliquis 2.5 mg tablet Take 1 tablet (2.5 mg total) by mouth 2 (two) times a day 180 tablet 3 07/31/19 25 Active metoprolol tartrate (LOPRESSOR) 25 mg immediate release tablet TAKE 1 TABLET(25 MG) BY MOUTH TWICE DAILY 180 tablet 1 09/27/19 25 Active Active Problems Problem Noted Date [...] on file Legal Sex Female 11:42 PM COUNTER HOP Gender Identity Not on file Sexual Orientation [...] tendency for uric acid stone formation. Source: [facility] [employer] Current Interpretive Data was last revised on [...] GENERAL ORDERABLES Final Result Performing Organization Address [facility] de Phone Number ADITYA BERNABEWCH [address] [facility] [employer] [place], [place] [phone] * (ABNORMAL) Urinalysis, microscopic only (09/08/2024 1:56 PM CDT) WBC, ur >50(A) 0 - 5 /HPF RBC, ur 21-50(A) 0 - 2 /HPF [facility] Epithelial cells, squamous, ur 11-20(A) 0 - 5 /HPF [facility] Mucous, ur Present(A) [facility] Culture Reflex Comment Reflex to urine culture will be performed. [facility] Urine 09/08/2024 1:56 PM CDT 09/08/2024 1:59 PM CDT Idalmis Chapin MD LAB URINE ORDERABLES Final Result Performing Organization Address [facility] de Phone Number ADITYA BERNABEW[facility] [address] [facility] [employer] [place], [place] [id number] * (ABNORMAL) Urine culture Urine (09/08/2024 1:56 PM CDT) Report Final Report: Greater than or equal to 100,000 colonies/ml of Enterococcus faecium (.) Comment:Testing performed by : [facility], [address] [place] [address]., [id number] Organism ENTEROCOCCUS FAECIUM [facility] Urine 09/08/2024 1:56 PM CDT 09/08/2024 4:49 PM CDT Narrative [facility] - 09/11/2024 7:41 AM CDT Urine culture reflexed based upon urinalysis results. Organism Antibiotic Method Susceptibility Enterococcus faecium Ampicillin (DENIS) INTERPRETATION Resistant Enterococcus faecium Linezolid (DENIS) INTERPRETATION Susceptible Enterococcus faecium Nitrofurantoin (DENIS) INTERPRETATI ON Intermediate Enterococcus faecium Tetracycline (DENIS) INTERPRETATION Resistant Enterococcus faecium Vancomycin (DENIS) INTERPRETATION Resistant Lj Oconnor MD LAB MICROBIOLOGY - GENERA L ORDERABLES Final Result Performing Organization Address [facility] Co de Phone Number ADITYA [facility] [address] [place] [address] * (ABNORMAL) eGFR (09/08/2024 12:30 PM CDT) [...] BLOOD ORDERABLES Final Result Performing Organization Address City/[facility]/ZIP Co de Phone Number ADITYA [facility] [address] [employer] [address] * (ABNORMAL) CBC with auto differential (09/08/2024 12:30 PM CDT) Pathologist [facility] WBC 117.8(C) 3.8 - 9.9 K/cumm Comment:Critical result call ed to and read back by MARIBEL CA RN on 09 08 2024 at 1311 to [facility]. Hgb 11.4(L) 11.9 - 15.5 g/dL [facility] Hct 37.6 35.6 - 45.5 % AD[facility]A [facility] Plt 248 150 - 400 K/cumm [facility] MPV 10.9 9.1 - 12.3 fL [facility]W RBC 3.78(L) 3.90 - 5.20 M/cumm [facility] MCV 99.5(H) 81.3 - 96.4 fL [facility] MCH 30.2 27.1 - 33.3 pg CERMARY CARMEN BERNABEW MCHC 30.3(L) 32.3 - 35.7 g/dL [facility] RDW CV 18.1(H) 11.1 - 14.9 % [facility] RDW SD 61.5(H) 35.7 - 48.1 fL ADITYA BERNABEW NRBC abs 0.00 0.00 - 0.01 K/cumm [facility] Blood Venous blood specimen / Unknown 09/08/2024 12:30 PM CDT 09/08/2024 12:30 PM CDT Idalmis [place] MD LAB BLOOD ORDERABLES Final Result [facility] [address] [facility]. [place] [address] * (ABNORMAL) Manual Differential (09/08/2024 12:30 PM CDT) Differential Manual Cells Counted 100 [facility] Neutrophil abs 3.5 1.5 - 6.5 K/cumm [facility] Lymphocyte abs 113.1(H) 0.8 - 3.3 K/cumm [facility] Monocyte abs 0.0(L) 0.2 - 0.8 K/cumm [facility] Basophil abs 1.2(H) 0.0 - 0.1 K/cumm [facility] Neutrophil pct 3.0 % [facility] Comment: Interpretive Data Percent cell count reference ranges are not reported, since discordance with absolute values may lead to misinterpretation of CBC data. Current Interpretive Data was last revised on 2017. Lymphocyte pct 96.0 % [facility] CARMEN [facility] Comment: Interpretive Data Percent cell count reference ranges are not reported, since discordance with absolute values may lead to misinterpretation of CBC data. Current Interpretive Data was last revised on 2017. Basophil pct 1.0 % [facility] CARMEN [facility] Comment: Interpretive Data Percent cell count reference ranges are not reported, since discordance with absolute values may lead to misinterpretation of CBC data. Current Interpretive Data was last revised on 2017. RBC morphology Normal [facility] CARMEN [facility] Platelet estimate Automated Count Confirmed [facility]A [facility] Blood 09/08/2024 12:3 0 PM CDT 09/08/2024 12:30 PM CDT Idalmis [place] MD LAB BLOOD ORDERABLES Final Result [facility] [address] [facility]. [place] [address] * (ABNORMAL) Comprehensive metabolic panel (09/08/2024 12:30 PM CDT) Sodium 137 135 - 145 mmol/L Potassium, pl 4.8 3.3 - 4.9 mmol/L [facility] Chloride 104 97 - 110 mmol/L [facility] CO2 22 22 - 32 mmol/L [facility] Anion gap 12 2 - 15 mmol/L [facility] BUN 17 6 - 25 mg/dL [facility] Creatinine 1.10 0.60 - 1.10 mg/dL [facility] Glucose 132 70 - 199 mg/dL [facility] Comment: Interpretive Data Fasting glucose >/= 126 [...] ORDERABLES Final Result [facility] [address] [facility]. 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
--- OUTSIDE RECORDS SUMMARY | 2024-11-09 13:15 | XMS_ITS | Encounter Summary ---
Author Organization [facility] Address [address] [place] [address] Care Team Providers Care Multi Slide Machine Tender Name Role Phone Eliseo Waters DO Primary Care Provider +1- [phone] Encounter Details Date Type Department Care Team (Late st Contact Info) Description 09/11/2024 Results Follow-Up 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
--- OUTSIDE RECORDS SUMMARY | 2024-11-09 13:15 | XMS_ITS | Clinical Summary ---
Author Organization [facility] Address [address] [place] [address] Care Team Providers Care Engineering Technologist Name Role Phone Evelin Eliseo Sudarshan FENG Primary Care Provider Allergies Active Allergy Reactions Criticality Noted Date Comments Ibrutinib Hives High 05/15/2024 Medications ascorbic acid, vitamin C, (Vitamin C) 100 mg Tablet Vitamin C Active omega-3s/dha/ep a/fish oil/D3 (VITAMIN-D + OMEGA-3 ORAL) Vitamin D [...] 6 hours as needed for Pain. Active HYDROcodone-jorge luis taminophen (NORCO) 7.5-325 mg TabletIndicatio ns:CLL (chronic lymphocytic leukemia) (CMS/HCC) Take 1 Tablet by mouth every 6 hours as needed for Pain, Moderate. Max Daily Amount: 4 Tablets 60 Tablet 06/13/20 24 Active allopurinoL (ZYLOPRIM) 300 mg tablet Take 1 Tablet (300 mg) by mouth daily. 60 Tablet 2 08/23/19 25 Active zanubrutinib (Brukinsa) 80 mg capsule TAKE 2 CAPSULES BY MOUTH TWICE A DAY 120 Capsule 10/25/19 25 Active zanubrutinib 80 mg capsule Take 2 Capsules (160 mg) by mouth 2 times daily. 120 Capsule 2 07/06/19 25 025 Discontinued Active Problems Problem Noted Date Diagnosed Date CLL (chronic lymphocytic leukemia) 03/24/2018 Encounters Date Type Department Care Team Description 10/26/2024 1:00 PM CDT Office Visit [facility] - C[facility] [address] [place] [address] Nicholas Gibson MD CLL (chronic lymphocytic leukemia) (CMS/HCC) (Primary Dx) 10/26/2024 Abstract [facility] - [facility] [address] [place] [address] Nicholas Gibson MD 10/24/2024 Refill [facility] - [facility] [address] [place] [address] Nicholas Gibson MD 10/20/2024 Orders Only [facility] - [facility] [address] [place] [address] Nicholas Gibson MD 09/11/2024 Abstract [facility] - Ck [address] [place] [address] Nicholas Gibson MD 09/11/2024 Telephone [facility] - [facility] [address] [place] [address] Nicholas Gibson MD Surgical Clearance 09/06/2024 Telephone [facility] - [facility] [address] [place] [address] Nicholas Gibson MD Medication Review 09/06/2024 Abstract [facility] - [facility] [address] [place] [address] Nicholas Gibson MD 08/29/2024 Abstract [facility] - [facility]k [address] [place] [address] Nicholas Gibson MD 08/28/2024 Abstract [facility] [address] [place] [address] Nicholas Gibson MD 08/23/2024 2:45 PM [facility] DIRECTOR Office Visit [facility] [address] [place] [address] Nicholas Gibson MD CLL (chronic lymphocytic leukemia) (CMS/HCC) (Primary Dx) 08/17/2024 Orders Only [facility] [address] [place] [address] Nicholas Gibson MD 08/16/2024 External Device Data ST[facility] ABSTRACTION Provider, Abstract from Last 3 Months Family History Medical [...] Sign Reading Time Taken Comments Blood Pressure 123/81 10/26/2024 12:59 PM CDT Pulse 76 10/26/2024 12:59 PM CDT Temperature 36.3 C (97.3 F) 10/26/2024 12:59 PM CDT Respiratory Rate 15 10/26/2024 12:59 PM CDT Oxygen Saturation 94% 10/26/2024 12:59 PM CDT Inhaled Oxygen Concentration - - Weight 43.8 kg (96 lb 9.6 oz) 10/26/2024 12:59 P M CDT Height 147.3 cm (4' 10 ) 10/06/2023 12:32 PM CDT Body Mass Index 20.19 10/06/2023 12:32 PM CDT Plan of Treatment Upcoming Encounters Date Type Department Care Team (Late st Contact Info) Description 01/02/2025 1:15 PM CDT [facility] Visit [facility] - [facility] [address] [facility] [address] [place] [address] Nicholas Gibson MD [address] [facility] [address] [place] [address] Health Maintenance Due Date Last Done Comments DTAP/TDAP/TD VACCINES (1 - Tdap) 09[birth year]16/1954 PNEUMOCOCCAL VACCINE 50+ YEARS (1 of 2 - PCV) 09/16/18 55 ZOSTER VACCINE (1 of 2) 09/16/1954 OSTEOPOROSIS SCREENING 09/16/2000 RSV VACCINE (60+ or ) (1 - 1-dose 75+ series) 09/16/2010 INFLUENZA VACCINE (#1) 2024 Procedures Procedure Name Priority Date/Time Associated Diagnosis Comments BASIC METABOLIC PANEL Routine 10/19/2024 10:05 AM CDT IRON PANEL Routine 10/19/2024 8:34 AM CDT CBC WITH AUTODIFFERENTIAL Routine 2024 1:02 PM [facility] DIRECTOR from Last 3 Months Results * BASIC METABOLIC PANEL (10/19/2024 10:05 AM CDT) Blood Nicholas Gibson MD CHEMISTRY ORDERABLES Final Resu lt * IRON PANEL (10/19/2024 8:34 AM CDT) Blood us Nicholas Gibson MD CHEMISTRY ORDERABLES Final Resu lt * CBC WITH AUTODIFFERENTIAL (08/16/2024 1:02 PM [facility] DIRECTOR) Blood Nicholas Gibson MD HEMATOLOGY ORDERABLES Final Res ult from Last 3 Months Insurance AETNA O [facility] AETNA [facility] AETNA Medicare Part D Care Teams Engineering Technologist Relationship Specialty Start Date End Date Eliseo Waters DO [address] [address] PCP - General Internal Medicine 03/24/24
--- OUTSIDE RECORDS SUMMARY | 2024-11-09 13:15 | XMS_ITS | Continuity of Care Document ---
Author Organization [facility] Address [address] [place] [address] [place] [address] Phone Care Team Providers Care Toddler Teacher Name Role Phone Misha Perdomo Unavailable Unavailable [...] Copied on Encounter Office/outpat ient Visit, Est [facility], [address] [place] [address] [address], [place], [place], [id number], tel:[phone] [facility] No Information Sep-0 9-201 0 Conor Cabral. [address] , [address], [place], [address], [place]. tel:[phone] [facility], [address], [place], [place], [id number], [place] tel:[phone] [facility] No Information Sep-1 0-200 9 Conor Cabral. [address] , [address], [place], [address], [place]. tel:[phone] [facility], [address], [place], [place], [id number], [place] tel:[phone] [facility] No Information 3200 8 Conor Cabral. [address] , [address], [place], [address], [place]. tel:[phone] [facility], [address], [place], [place], [address], [place] tel:[phone] [facility] No Information 7 Conor Cabral. [address] [facility] , [address], [place], [facility], [place]. tel:[phone] [facility], [address], [place], [place], [address], [place] tel:[phone] [facility] No Information 1200 7 Conor Cabral. [address], [address], [place], [facility], [place]. tel:[phone] [facility], [address], [place], [place], [address], [place] tel:[phone] [facility] No Information 0 7 Conor Cabral. [address], [address], [place], [facility], [place]. tel:[phone] Office/outpat ient Visit, Est [facility], [address] [place] [address] [address], [place], [place], [address], [place] tel:[phone] [facility] No Information 7 Conor Cabral. [address] , [address], [place], [facility], [place]. tel:[phone] Referring Provider: Misha Flores, [facility] [address], [place], [address]. tel:[phone] Family History Family Member Type Diagnosis Age At Onset No Information Payers Payer name Insurance type Covered green party ID Authoriza tion(s) [place] [id number] Social History Type Description Quantity Date Captured [...]
--- OUTSIDE RECORDS SUMMARY | 2024-11-09 13:15 | XMS_ITS | Data Portability ---
Author Organization [facility] Main Office Address [address] [place] [address] Assessment No assessment recorded. Plan of Treatment [...] bingham am No observ ation record ed. [id number] _[facility]_[address], [place], [address], 08/26/2022 23:11:14 02/20/20 21 01/15/2021 elect kaylan bingham am No observ ation record ed. [id number], [place], [address], 08/26/2022 23:11:14 04/14/20 22 XR, lumbo sacra l spine , 2 or 3 view [facility] [address] [facility] [place] [address] Fernando t Name: SANDRA FORD Access ion #: [id number] Sex: F : 1935 4 Locati [...] t Name: SANDRA FORD Access ion #: [id number] Sex: F : 1935 4 Exam [...] 9:14 AM (CT) Page 2 of 2 [id number] 21987 [facility] (Imaging) [address] [place] [address], [address], 08/26/2022 23:11:14 04/14/20 22 04/14/2022 XR, lumbo sacra l spine , 2 or 3 view No observ ation record ed. [id number] [facility] [address] , [place], [address], 08/26/2022 23:11:14 06/15/20 22 06/15/2022 imagi ng/di agnos tic resul t No observ ation record ed. [id number] [place] [address] [address], [place], [address], 08/26/2022 23:11:14 06/15/20 22 06/15/2022 imagi ng/di agnos tic resul t No observ ation record ed. [id number].[id number] [place] [address] [address], [place], [address], 08/26/2022 23:11:14 06/23/20 22 06/23/2022 CT, abdom en + pelvi s, w/ contr ast No observ ation record ed. [id number] [place] [address], [place], [address], 08/26/2022 23:11:14 07/31/19 23 07/31/2022 CT, abdom en + pelvi s, w/ contr ast No observ ation record ed. MIGRATION.[id number] [place] [address] [address], [place], [address], 08/26/2022 23:11:14 04/02/20 23 04/02/2023 XR, wrist , 3 or more view No observ ation record ed. [address], [place], [address], 04/05/2023 10:20:44 04/02/20 23 04/02/2023 XR, hip, bilat eral, 2 view No observ ation record ed. [address], [place], [address], 04/05/2023 10:22:37 04/02/20 23 04/02/2023 XR, femur , 2 or more view No observ ation record ed. [address], [place], [address], 04/05/2023 10:23:23 04/03/2004/03/2023 CT, hip, w/o contr ast No observ ation record ed. [address], [place], [address], 04/05/2023 10:24:12 04/03/2004/03/2023 XR, chest , 2 view No observ ation record ed. [address], [place], [address], 04/05/2023 10:25:09 04/05/20 23 04/05/2023 stres s echoc ardio gram No observ ation record ed. [address], [place], [address], 04/05/2023 15:52:26 04/05/2004/05/2023 XR, shoul maxim No observ ation record ed. [address], [place], [address], 04/05/2023 15:52:39 Result Notes None recorded. 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 Procedures Surgical History Date Name Laterality Status Provider Name and Address Organization Details Recorded Time Cataract Surgery completed Not Available [facility] 08/26/2022 23:06:17 cardiac catheterization completed Not Available [facility] 08/26/2022 23:06:17 colonoscopy completed Not Available [facility] 08/26/2022 23:06:17 dacryocystotomy completed Not Available [facility] 08/26/2022 23:06:17 Hysterectomy completed Not Available [facility] 08/26/2022 23:06:17 Cholecystectomy completed Not Available [facility] 08/26/2022 23:06:17 Imaging Results Imaging Date Name Status LastModified by Organization Details LastModified Time 06/23/2022 CT, abdomen + pelvis, w/ contrast completed [id number] [address] [address], [place], [address], 08/26/2022 23:11:14 06/15/2022 imaging/diagnostic result completed MIGRATION.[id number] [place] [address], [place], [address], 08/26/2022 23:11:14 06/15/2022 imaging/diagnostic result completed MIGRATION.[id number] [place] [address], [place], [address], 08/26/2022 23:11:14 07/31/2022 CT, abdomen + pelvis, w/ contrast completed [id number] [facility] [address], [place], [address], 08/26/2022 23:11:14 01/16/2021 electrocardiogram completed MIGRATION. [id number] [facility] [address], [place], [address], 08/26/2022 23:11:14 01/15/2021 electrocardiogram completed MIGRATION. [id number] [facility] , [address], [place], [address], 08/26/2022 23:11:14 04/14/2022 XR, lumbosacral spine, 2 or 3 view completed [id number].[id number] [facility] ([facility] [address] [facility], [place], [address], 08/26/2022 23:11:14 04/14/2022 XR, lumbosacral spine, 2 or 3 view completed [id number], [place], [address], 08/26/2022 23:11:14 04/02/2023 XR, wrist, 3 or more view completed [address], [address], 04/05/2023 10:20:44 04/02/2023 XR, hip, bilateral, 2 view completed [address], [address], 04/05/2023 10:22:37 04/02/2023 XR, femur, 2 or more view completed [address], [address], 04/05/2023 10:23:23 04/03/2023 CT, hip, w/o contrast completed [address], [address], 04/05/2023 10:24:12 04/03/2023 XR, chest, 2 view completed [address], [address], 04/05/2023 10:25:09 04/05/2023 stress echocardiogram completed [address], [address], 04/05/2023 15:52:26 04/05/2023 XR, shoulder completed [email or web address], [place], [address], 04/05/2023 15:52:39 Procedure Notes None recorded. Medical [...] % 96 % 84 /min 97.3 [degF] 87280.7 9 g 116 mm[Hg] 76 mm[Hg] Not Available [facility] 3 23:08:21 Date Recorded Body mass index (BMI) Body height Oxygen saturation Oxygen saturation in Arterial blood by Pulse oximetry Heart rate Body temperature Body weight Systolic blood pressure Diastolic blood pressure Provider Name and Address Organization Details Last Updated DateTime 2 27.4 kg/m2 147.32 cm 98 % 98 % 113 /min 97.3 [degF] 49376.6 g 144 mm[Hg] 90 mm[Hg] Not Available [facility] 3 23:08:21 Date Recorded Body height Body mass index (BMI) Body weight Body temperature Heart rate Oxygen saturation Oxygen saturation in Arterial blood by Pulse oximetry Systolic blood pressure Diastolic blood pressure Provider Name and Address Organization Details Last Updated DateTime 3 147.32 cm 26.1 kg/m2 80620.0 5 g 98.7 [degF] 103 /min 98 % 98 % 130 mm[Hg] 80 mm[Hg] MARIELA Mckeon [place] [facility] 3 10:07:40 Social History Question Answer Notes LastModified by Cynny Details LastModified Time Tobacco Smoking Status Never Smoker Not Available [facility] 08/26/2022 23:06:07 In The 14 Days Before Symptom Onset, Have You Had Close Contact With A Laboratory-confirm ed COVID-19 While That Case Was Ill? No [id number] Information not available 08/26/2022 In The 14 Days Before Symptom Onset, Have You Had Close Contact With A Person Who Is Under Investigation For COVID-19 While That Person Was Ill? No [id number] Information not available 08/26/2022 Sex: Unknown Functional Status Question Answer Note LastModified by Cynny Details LastModified Time What is your level of alcohol consumption? None [id number] Information not available 08/26/2022 Mental Status None recorded. Family History Relationship Description Onset Age of this Age Resolved Age Notes LastModified by Organization Details LastModified Time Father Calcificatio n of lung [id number] Not available 08/26/2022 23:06:23 Father Malignant neoplasm of lung [id number] Not available 08/26/2022 23:06:23 Mother Aneurysm [id number] Not available 08/26/2022 23:06:23 Medical History Condition [...] HAVE YOU BEEN HOSPITALIZED OR SEEN IN [facility] IN THE PAST YEAR ? N ATHEROSCLEROSIS [...] SNOMED-CT Code Diagnosis ICD10 Code Diagnosis Note [id number] Georgette Campuzano MD [facility] [address] [place] [address] 01/15/2021 00:00:00 01/16/2021 06:41:22 [id number] Georgette Campuzano MD [facility] Richard marj [address] 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 Chronic ly mphoid leukemia, disease 35238723 C91.10 F/u with oncologist /hematolog ist Health Concerns Section Related Observation LastModified by Organization Detai ls LastModified Time None Recorded Concern Status LastModified by Organization Details LastModified Time None Recorded Advance Directives Directive None Recorded Payers Encounter Date Sequence Insurance Name Policy Number Policy Lua Covered Member ID Lua Member ID Guarantor Name 10/14/2022 1 [employer] (MEDICARE REPLACEMENT/ ADVANTAGE - PPO) [id number] Sandra Ford [id number] Sandra Ford Notes Date Note Type Note [...] vaginal discharge very slight. Georgette Campuzano MD [address] [facility], [address] [address], [place], [address], [facility] 10/14/2022 10:45:32 OBGyn Episode No OBEpisode recorded.
--- OUTSIDE RECORDS SUMMARY | 2024-11-09 13:15 | XMS_ITS ---
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
--- OUTSIDE RECORDS SUMMARY | 2024-11-09 13:15 | XMS_ITS | Clinical Summary ---
Author Organization [facility] [address] Address [address] [place] [address] Care Team Providers Care Solar Pool Heating Installer Name Role Phone Eliseo Waters DO Primary Care Provider +1- [phone] Allergies No known active allergies Medications ferrous [...] Department Care Team Description 09/11/2024 Results Follow-Up [facility] Emergency Department [address] [address] Sharon Regalado PA 09/08/2024 12:27 PM CDT - 09/08/2024 4:41 PM CDT Emergency [facility] Emergency Department [address] [address] [address] Idalmis Chapin MD Heilmann, Adam David, MD [...] on file 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 Source: [facility] Current Interpretive Data was last revised on [...] to microscopic UA will be performed. ADITYA PACHECO Urine 09/08/2024 1:56 PM CDT 09/08/2024 1:59 PM CDT Idalmis Chapin MD LAB MICROBIOLOGY - GENERAL ORDERABLES Final Result Performing Organization Address [facility] Phone Number ADITYA PACHECO [address] [facility]. Department [place] [address] * (ABNORMAL) Urinalysis, microscopic only (09/08/2024 1:56 PM CDT) WBC, ur >50(A) 0 - 5 /HPF RBC, ur 21-50(A) 0 - 2 /HPF [facility] Epithelial cells, squamous, ur 11-20(A) 0 - 5 /HPF ADITYA BERNABEWCH Mucous, ur Present(A) [facility] Culture Reflex Comment Reflex to urine culture will be performed. ADITYA PACHECO Urine 09/08/2024 1:56 PM CDT 09/08/2024 1:59 PM CDT Idalmis Chapin MD LAB URINE ORDERABLES Final Result Performing Organization Address [facility] Co de Phone Number ADITYA BERNABEWCH [address] [facility] [place] [address] * (ABNORMAL) Urine culture Urine (09/08/2024 1:56 PM CDT) Report Final Report: Greater than or equal to 100,000 colonies/ml of Enterococcus faecium (.) Comment:Testing performed by : [facility], [address] [place] [address]., [id number] Organism ENTEROCOCCUS FAECIUM ADITYA [facility] Urine 09/08/2024 1:56 PM CDT 09/08/2024 4:49 [...] L ORDERABLES Final Result Performing Organization Address [facility] Co de Phone Number ADITYA BERNABEWCH [address] [facility] [place] [address] * (ABNORMAL) eGFR (09/08/2024 12:30 PM CDT) [...] Inclusion of Race in Diagnosing Kidney Disease, TYSHAWNSSd 2020). The CKD-EPI equation should not be used for patients with unstable renal function and has not been validated in children and those over 70. Current interpretive data was last reviewed 2021. Blood 09/08/2024 12:3 0 PM CDT 09/08/2024 12:30 PM CDT us Idalmis Chapin MD LAB BLOOD ORDERABLES Final Result [facility] [address] [facility]. [employer] [place], [place] [id number] * (ABNORMAL) CBC with auto differential (09/08/2024 12:30 PM CDT) WBC 117.8(C) 3.8 - 9.9 K/cumm Comment:Critical result call ed to and read back by MARIBEL CA RN on 09 08 2024 at 1311 [facility]. Hgb 11.4(L) 11.9 - 15.5 g/dL [facility] Hct 37.6 35.6 - 45.5 % [facility] Plt 248 150 - 400 K/cumm [facility] MPV 10.9 9.1 - 12.3 fL [facility] RBC 3.78(L) 3.90 - 5.20 M/cumm [facility] MCV 99.5(H) 81.3 - 96.4 fL [facility] MCH 30.2 27.1 - 33.3 pg [facility] MCHC 30.3(L) 32.3 - 35.7 g/dL [facility] RDW CV 18.1(H) 11.1 - 14.9 % [facility] RDW SD 61.5(H) 35.7 - 48.1 fL [facility] NRBC abs 0.00 0.00 - 0.01 K/cumm [facility] Blood Venous blood specimen / Unknown 09/08/2024 12:30 PM CDT 09/08/2024 12:30 PM CDT Idalmis Chapin MD LAB BLOOD ORDERABLES Final Result Performing Organization Address City/[facility]/ZIP Co de Phone Number ADITYA PACHECO [address] [address] [facility]. [place] [address] * (ABNORMAL) Manual Differential (09/08/2024 12:30 PM CDT) Differential Manual Cells Counted 100 [facility]ERMARY CARMEN [facility] Neutrophil abs 3.5 1.5 - 6.5 K/cumm [facility]ER [facility] Lymphocyte abs 113.1(H) 0.8 - 3.3 K/cumm [facility] Monocyte abs 0.0(L) 0.2 - 0.8 K/cumm [facility] Basophil abs 1.2(H) 0.0 - 0.1 K/cumm [facility]ER [facility] Neutrophil pct 3.0 % [facility] Comment: Interpretive Data Percent cell count reference ranges are not reported, since discordance with absolute values may lead to misinterpretation of CBC data. Current Interpretive Data was last revised on 2017. Lymphocyte pct 96.0 % [facility] CARMEN [facility] Comment: Interpretive Data Percent cell count reference ranges are not reported, since discordance with absolute values may lead to misinterpretation of CBC data. Current Interpretive Data was last revised on 2017. Basophil pct 1.0 % ADITYA [facility] Comment: Interpretive Data Percent cell count reference ranges are not reported, since discordance with absolute values may lead to misinterpretation of CBC data. Current Interpretive Data was last revised on 2017. RBC morphology Normal [facility]ITYA [facility] Platelet estimate Automated Count Confirmed [facility] Blood 09/08/2024 12:3 0 PM CDT 09/08/2024 12:30 PM CDT Idalmis Chapin MD LAB BLOOD ORDERABLES Final Result Performing Organization Address City/[facility]/ZIP Co de Phone Number ADITYA PACHECO [address] [facility]. Department of [employer] [place], [place] [id number] * (ABNORMAL) Comprehensive metabolic panel (09/08/2024 12:30 [...] LAB BLOOD ORDERABLES Final Result ADITYA PACHECO [address] [facility]. 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
--- OUTSIDE RECORDS SUMMARY | 2024-11-09 13:15 | XMS_ITS ---
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
[2024-11-09 13:31] VITALS: BP 121/68; PULSE 63; RESP 19; O2SAT 97
--- OUTSIDE RECORDS SUMMARY | 2024-11-09 13:40 | XMS_ITS ---
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
--- OUTSIDE RECORDS SUMMARY | 2024-11-09 13:40 | XMS_ITS | Referral Summary ---
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 Source: [facility] [place] Current Interpretive Data was last revised on [...] GENERAL ORDERABLES Final Result Performing Organization Address [facility] de Phone Number ADITYA BERNABEWCH [address] [facility] [place], [place] [id number] * (ABNORMAL) Urinalysis, microscopic only (09/08/2024 1:56 [...] URINE ORDERABLES Final Result Performing Organization Address [facility] de Phone Number ADITYA BERNABEWCH [address] [facility] [place], [place] [phone] * (ABNORMAL) Urine culture Urine (09/08/2024 1:56 PM CDT) Report Final Report: Greater than or equal to 100,000 colonies/ml of Enterococcus faecium (.) Comment:Testing performed by : [facility], [address] [place] [address]., [address] Organism ENTEROCOCCUS FAECIUM ADITYA PACHECO Urine 09/08/2024 [...] L ORDERABLES Final Result Performing Organization Address [facility] Co de Phone Number ADITYA [facility] [address] [employer] [place] [address] * (ABNORMAL) eGFR (09/08/2024 12:30 PM CDT) [...] BLOOD ORDERABLES Final Result Performing Organization Address City/[facility]/ZIP Co de Phone Number ADITYA [facility] [address] [employer]. Department [place] [address] * (ABNORMAL) CBC with auto differential (09/08/2024 12:30 PM CDT) Pathologist [facility] WBC 117.8(C) 3.8 - 9.9 K/cumm Comment:Critical result call ed to and read back by MARIBEL CA RN on 09 08 2024 at 1311 to [facility]. Hgb 11.4(L) 11.9 - 15.5 g/dL [facility] Hct 37.6 35.6 - 45.5 % ADITYA [facility] Plt 248 150 - 400 K/cumm [facility] MPV 10.9 9.1 - 12.3 fL [facility] BERNABEW RBC 3.78(L) 3.90 - 5.20 M/cumm [facility] MCV 99.5(H) 81.3 - 96.4 fL [facility] MCH 30.2 27.1 - 33.3 pg CERMARY CARMEN BERNABEW MCHC 30.3(L) 32.3 - 35.7 g/dL [facility] RDW CV 18.1(H) 11.1 - 14.9 % [facility] RDW SD 61.5(H) 35.7 - 48.1 fL ADIYTA BERNABEW NRBC abs 0.00 0.00 - 0.01 K/cumm [facility] Blood Venous blood specimen / Unknown 09/08/2024 12:30 PM CDT 09/08/2024 12:30 PM CDT Idalmis Chapin MD LAB BLOOD ORDERABLES Final Result ADITYA PACHECO [address] [facility]. Department [place] [address] * (ABNORMAL) Manual Differential (09/08/2024 12:30 PM CDT) Differential Manual Cells Counted 100 [facility] Neutrophil abs 3.5 1.5 - 6.5 K/cumm [facility] Lymphocyte abs 113.1(H) 0.8 - 3.3 K/cumm [facility] Monocyte abs 0.0(L) 0.2 - 0.8 K/cumm [facility] Basophil abs 1.2(H) 0.0 - 0.1 K/cumm [facility] Neutrophil pct 3.0 % [facility] Comment: Interpretive Data Percent cell count reference ranges are not reported, since discordance with absolute values may lead to misinterpretation of CBC data. Current Interpretive Data was last revised on 2017. Lymphocyte pct 96.0 % CERMARY CARMEN [facility] Comment: Interpretive Data Percent cell count reference ranges are not reported, since discordance with absolute values may lead to misinterpretation of CBC data. Current Interpretive Data was last revised on 2017. Basophil pct 1.0 % [facility]ERMARY CARMEN [facility] Comment: Interpretive Data Percent cell count reference ranges are not reported, since discordance with absolute values may lead to misinterpretation of CBC data. Current Interpretive Data was last revised on 2017. RBC morphology Normal [facility] CARMEN [facility] Platelet estimate Automated Count Confirmed ADITYA [facility] Blood 09/08/2024 12:3 0 PM CDT 09/08/2024 12:30 PM CDT Idalmis Chapin MD LAB BLOOD ORDERABLES Final Result [facility] [address] [facility]. Department [place] [address] * (ABNORMAL) Comprehensive metabolic panel (09/08/2024 12:30 PM CDT) Sodium 137 135 - 145 mmol/L Potassium, pl 4.8 3.3 - 4.9 mmol/L [facility] Chloride 104 97 - 110 mmol/L [facility] CO2 22 22 - 32 mmol/L [facility] Anion gap 12 2 - 15 mmol/L [facility] BUN 17 6 - 25 mg/dL [facility] Creatinine 1.10 0.60 - 1.10 mg/dL [facility] Glucose 132 70 - 199 mg/dL [facility] Comment: Interpretive Data Fasting glucose >/= 126 [...] MD LAB BLOOD ORDERABLES Final Result [facility] [address] [facility]. 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
--- OUTSIDE RECORDS SUMMARY | 2024-11-09 13:40 | XMS_ITS | Continuity of Care Document ---
Author Organization [facility] Address [address] [place] [address] [address] Phone Care Team Providers Care Manager Camp Name Role Phone Misha Perdomo Unavailable Unavailable [...] Copied on Encounter Office/outpat ient Visit, Est [facility], [address] [place] [address] [address], , [id number], tel:[phone] SEC [facility] No Information Sep-0 9-201 0 Conor Cabral. [address] , [address], [place], [address], [place]. tel:[phone] [facility], [address], , [id number], [place] tel:[phone] SEC [facility] No Information Sep-1 0-200 9 Conor Cabral. [address] , [address], [place], [address], [place]. tel:[phone] [facility] Eye [facility], [address] [address], , [id number], [place] tel:[phone] [facility] No Information 3200 8 Conor Cabral. [address] , [address], [place], [address], [place]. tel:[phone] [facility] Eye [facility], [address] [address], , [id number], [place] tel:[phone] [facility] No Information 7 Conor Cabral. [address] [facility] [address] , [address], [place], [facility], [place]. tel:[phone] [facility] Eye [facility], [address] [address], , [id number], [place] tel:[phone] [facility] No Information 1200 7 Conor Cabral. [address], [address], [place], [facility], [place]. tel:[phone] [facility] Eye [facility], [address] [address], , [id number], [place] tel:[phone] [facility] No Information 0 7 Conor Cabral. [address], [address], [place], [facility], [place]. tel:[phone] Office/outpat ient Visit, Est [facility] Eye [facility], [address] [place] [address] [address], , [id number], [place] tel:[phone] [facility] No Information 7 Conor Cabral. [address] , [address], [place], [facility], [place]. tel:[phone] Referring Provider: Misha Flores, [facility] [address], [place], [address]. tel:[phone] Family History Family Member Type Diagnosis Age At Onset No Information Payers Payer name Insurance type Covered green party ID Authoriza tion(s) [place] [id number] Social History Type Description Quantity Date Captured [...]
--- OUTSIDE RECORDS SUMMARY | 2024-11-09 13:40 | XMS_ITS | Encounter Summary ---
Author Organization [facility] Address [address] [place] [address] Care Team Providers Care Box Car Loader Name Role Phone Eliseo Waters DO Primary Care Provider +1- [phone] Encounter Details Date Type Department Care Team (Late st Contact Info) Description 09/11/2024 Results Follow-Up [facility] Emergency Department [address] [place] [address] Sharon Regalado PA [address] [place] [address] Social History Tobacco Use Types Packs/Day Years [...] on file Legal Sex Female 11:42 PM [employer] Gender Identity Not on file Sexual Orientation Not on file documented as of this encounter Plan of Treatment Not on file documented as of this encounter Visit Diagnoses Not on filedocumented in this encounter Additional Health Concerns 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
--- OUTSIDE RECORDS SUMMARY | 2024-11-09 13:40 | XMS_ITS | Clinical Summary ---
Author Organization [facility] [address] Address [address] [place] [address] Care Team Providers Care Biomathematician Name Role Phone Eliseo Waters DO Primary Care Provider +1- [phone] Allergies No known active allergies Medications ferrous [...] Department Care Team Description 09/11/2024 Results Follow-Up [facility] Emergency Department [address] [address]rez [address] Sharon Regalado PA 09/08/2024 12:27 PM CDT - 09/08/2024 4:41 PM CDT Emergency [facility] Emergency Department [address] [address] [address] Idalmis Chapin MD Heilmann, Adam David, MD [...] on file 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 Source: [facility] Current Interpretive Data was last revised on [...] GENERAL ORDERABLES Final Result Performing Organization Address [facility] Phone Number ADITYA PACHECO [address] [facility]. [place] [address] * (ABNORMAL) Urinalysis, microscopic only (09/08/2024 1:56 [...] URINE ORDERABLES Final Result Performing Organization Address [facility] Co de Phone Number ADITYA BERNABEWCH [address] [facility] [place] [address] * (ABNORMAL) Urine culture Urine (09/08/2024 1:56 PM CDT) Report Final Report: Greater than or equal to 100,000 colonies/ml of Enterococcus faecium (.) Comment:Testing performed by : [facility], [address] [place] [address]., [address] Organism ENTEROCOCCUS FAECIUM ADITYA [facility] Urine 09/08/2024 [...] L ORDERABLES Final Result Performing Organization Address [facility] Co de Phone Number ADITYA BERNABEWCH [address] [facility] [place] [address] * (ABNORMAL) eGFR (09/08/2024 12:30 PM CDT) [...] MD LAB BLOOD ORDERABLES Final Result [facility] [address] [facility]. [employer] [place], [place] [id number] * (ABNORMAL) CBC with auto differential (09/08/2024 12:30 PM CDT) WBC 117.8(C) 3.8 - 9.9 K/cumm Comment:Critical result call ed to and read back by MARIBEL CA RN on 09 08 2024 at 1311 to [facility]. Hgb 11.4(L) 11.9 - 15.5 g/dL [facility] Hct 37.6 35.6 - 45.5 % [facility] Plt 248 150 - 400 K/cumm [facility] MPV 10.9 9.1 - 12.[address] [facility] RBC 3.78(L) 3.90 - 5.20 M/cumm [facility] MCV 99.5(H) 81.3 - 96.[address] [facility] MCH 30.2 27.1 - 33.3 pg [facility] MCHC 30.3(L) 32.3 - 35.7 g/dL [facility] RDW CV 18.1(H) 11.1 - 14.9 % [facility] RDW SD 61.5(H) 35.7 - 48.[address] [facility] NRBC abs 0.00 0.00 - 0.01 K/cumm [facility] Blood Venous blood specimen / Unknown 09/08/2024 12:30 PM CDT 09/08/2024 12:30 PM CDT Idalmis Chapin MD LAB BLOOD ORDERABLES Final Result Performing Organization Address City/[facility]/ZIP Co de Phone Number ADITYA PACHECO [address] [address] [facility]. [place] [address] * (ABNORMAL) Manual Differential (09/08/2024 12:30 PM CDT) Differential Manual Cells Counted 100 CERMARY CARMEN [facility] Neutrophil abs 3.5 1.5 - 6.5 K/cumm CERNER [facility] Lymphocyte abs 113.1(H) 0.8 - [...] 2017. Lymphocyte pct 96.0 % CERMARY CARMEN [facility] Comment: Interpretive Data Percent cell count reference ranges are not reported, since discordance with absolute values may lead to misinterpretation of CBC data. Current Interpretive Data was last revised on 2017. Basophil pct 1.0 % ADITYA [facility] Comment: Interpretive Data Percent cell count reference ranges are not reported, since discordance with absolute values may lead to misinterpretation of CBC data. Current Interpretive Data was last revised on 2017. RBC morphology Normal ADITYA [facility] Platelet estimate Automated Count Confirmed AF[facility]AM[facility] CARMEN [facility] Blood 09/08/2024 12:3 0 PM CDT 09/08/2024 12:30 PM CDT Idalmis Chapin MD LAB BLOOD ORDERABLES Final Result Performing Organization Address City/[facility]/ZIP Co de Phone Number ADITYA PACHECO [address] [facility]. Department of [employer] [place], [place] [id number] * (ABNORMAL) Comprehensive metabolic panel (09/08/2024 12:30 [...] LAB BLOOD ORDERABLES Final Result ADITYA PACHECO [address] [facility]. 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
--- OUTSIDE RECORDS SUMMARY | 2024-11-09 13:40 | XMS_ITS | Clinical Summary ---
Author Organization [facility] Address [address] [place] [address] Care Team Providers Care Bowstring Maker Name Role Phone Evelin Eliseo Sudarshan FENG [...] Description 10/26/2024 1:00 PM CDT Office Visit [facility] Oncology and Hematology - C[address] [place] [address] Nicholas iGbson MD CLL (chronic lymphocytic leukemia) (CMS/HCC) (Primary Dx) 10/26/2024 Abstract [facility] Oncology and Hematology - [address] [place] [address] Nicholas Gibson MD 10/24/2024 Refill [facility] Oncology and Hematology - [facility] [place] [address] Nicholas Gibson MD 10/20/2024 Orders Only [facility] Oncology and Hematology - [address] [place] [address] Nicholas Gibson MD 09/11/2024 Abstract [facility] Oncology and Hematology - [address] [place] [address] Nicholas Gibson MD 09/11/2024 Telephone [facility] Oncology and Hematology - [address] [place] [address] Nicholas Gibson MD Surgical Clearance 09/06/2024 Telephone [facility] Oncology and Hematology - [address] [place] [address] Nicholas Gibson MD Medication Review 09/06/2024 Abstract [facility] Oncology and Hematology - [address] [place] [address] Nicholas Gibson MD 08/29/2024 Abstract [facility] Oncology and Hematology - [address] [place] [address] Nicholas Gibson MD 08/28/2024 Abstract [facility] Oncology and Hematology [facility] [address] [place] [address] Nicholas Gibson MD 08/23/2024 2:45 PM VARYING EXCEPTIONALITIES TEACHER Office Visit [facility] Oncology and Hematology [facility] [address] [place] [address] Nicholas Gibson MD CLL (chronic lymphocytic leukemia) (CMS/HCC) (Primary Dx) 08/17/2024 Orders Only [facility] Oncology and Hematology [facility] [address] [place] [address] Nicholas Gibson MD 08/16/2024 External Device Data [...] Description 01/02/2025 1:15 PM CDT Office Visit [facility] Oncology and Hematology - [address] [facility] [address] [place] [address] Nicholas Gibson MD [address] [facility] [address] [place] [address] Health Maintenance Due Date Last [...] CBC WITH AUTODIFFERENTIAL Routine 2024 1:02 PM VARYING EXCEPTIONALITIES TEACHER from Last 3 Months Results * BASIC METABOLIC PANEL (10/19/2024 10:05 AM CDT) Blood Nicholas Gibson MD CHEMISTRY ORDERABLES Final Resu lt * IRON PANEL (10/19/2024 8:34 AM CDT) Blood us Nicholas Gibson MD CHEMISTRY ORDERABLES Final Resu lt * CBC WITH AUTODIFFERENTIAL (08/16/2024 1:02 PM VARYING EXCEPTIONALITIES TEACHER) Blood Nicholas Gibson MD HEMATOLOGY ORDERABLES Final Res ult from Last 3 Months Insurance AETNA [facility] AETNA [facility] RX AETNA Medicare Part D Care Teams Bowstring Maker Relationship Specialty Start Date End Date Eliseo Waters DO [address] [address] PCP - General Internal Medicine 03/24/24
--- OUTSIDE RECORDS SUMMARY | 2024-11-09 13:40 | XMS_ITS | Clinical Summary ---
Author Organization Unknown Care Team Providers Care Straightedge Man Name Role Phone KENNETH CORDOVA, VALERIO Unavailable Unavailable CADE PHYSICAL THERAPIST, CAMILLE Unavailable Unavailable RAQUEL REGISTERED NURSE ACCOUNTING ADMINISTRATIVE ASSISTANT, RUSS reza Unavailable Payers Payer Name Policy Type Policy [...] TO LARGE INTESTINE Active 06-28 00:00: 00 HANDLE MAKER (CURRENT) USE OF ANTIBIOTICS Active 06-28 00:00: 00 FDC (CURRENT) USE OF ANTICOAGULAN TS Active 06-28 00:00: 00 OTHER FDC (CURRENT) DRUG THERAPY Active 06-28 00:00: 00 [...] 300 mg tablet 07-18 00:00: 00 Yes [id number] HELP WITH SIDE EFFECTS OF BRUKINSA 1 tablet ONCE DAILY 1 tablet ONCE DAILY (route: oral) Med Classific ation: Gout and Hyperuric emia Therapy Brukinsa 80 mg capsule 07-18 00:00: 00 Yes [id number] CANCER 2 capsule TWICE DAILY 2 capsule TWICE DAILY (route: oral) Med Classific ation: Antineopl astics calcium 500 mg (as calcium carbonate 1,250 mg) tablet 07-18 00:00: 00 Yes [id number] SUPPLEMENT 1 tablet ONCE DAILY 1 tablet ONCE DAILY (route: oral) Med Classific ation: Electroly te Balance-N utritiona l Products Dulcolax (bisacodyl) 5 mg tablet,alessio yed release 07-18 00:00: 00 Yes [id number] CONSTIPATIO N 1 tablet ONCE DAILY 1 tablet ONCE DAILY (route: oral) Med Classific ation: Gastroint estinal Therapy Agents Eliquis 2.5 mg tablet 07-18 00:00: 00 Yes [id number] PREVENT CLOTS 1 tablet TWICE DAILY 1 tablet TWICE DAILY (route: oral) Med Classific ation: Hematolog ical Agents hydrocodone 10 mg-acetamin ophen 325 mg tablet 07-18 00:00: 00 09-14 23:59 :00 No [id number] PAIN 1 tablet 3 TIMES DAILY 1 tablet 3 TIMES DAILY (route: oral) Med Classific ation: Analgesic , Anti-infl ammatory or Antipyret ic metoprolol tartrate 25 mg tablet 07-18 00:00: 00 Yes [id number] HYPERTENSIO N 1 tablet TWICE DAILY 1 tablet TWICE DAILY (route: oral) Med Classific ation: Cardiovas cular Therapy Agents Miralax 17 gram/dose oral powder 07-18 00:00: 00 Yes [id number] CONSTIPATIO N Per instruc tions ONCE DAILY Per instructio ns ONCE DAILY (route: oral) Med Classific ation: Gastroint estinal Therapy Agents Vitamin D3 10 mcg (400 unit) tablet 07-18 00:00: 00 Yes [id number] SUPPLEMENT 1 tablet ONCE DAILY 1 tablet ONCE DAILY (route: oral) Med Classific ation: Electroly te Balance-N utritiona l Products acetaminoph en 325 mg capsule 07-28 00:00: 00 Yes [id number] PAIN 2 capsule EVERY 6 HOURS 2 capsule EVERY 6 HOURS (route: oral) Med Classific ation: Analgesic , Anti-infl ammatory or Antipyret ic amoxicillin 875 mg-potassiu m clavulanate 125 mg tablet 08-23 00:00: 00 09-05 23:59 :00 No [id number] DYSURIA 1 tablet TWICE DAILY 1 tablet TWICE DAILY (route: oral) Med Classific ation: Anti-Infe ctive Agents Gemtesa 75 mg tablet 08-18 00:00: 00 Yes [id number] OVERACTIVE BLADDER 1 tablet ONCE DAILY 1 tablet ONCE DAILY (route: oral) Med Classific ation: Genitouri nary Therapy ciprofloxac in 500 mg tablet 09-05 00:00: 00 09-19 23:59 :00 No [id number] COLO/VAGINA L FISTULA AND URINARY TRACT INFECTION 1 tablet TWICE DAILY 1 tablet TWICE DAILY (route: oral) Alternate Route: BY MOUTH. Med Classific ation: Anti-Infe ctive Agents metronidazo le 500 mg tablet 09-05 00:00: 00 09-19 23:59 :00 No [id number] COLO/VAGINA L FISTULA 1 tablet TWICE DAILY 1 tablet TWICE DAILY (route: oral) Alternate Route: BY MOUTH. Med Classific ation: Anti-Infe ctive Agents azelastine 137 mcg (0.1 %) nasal spray 09-17 00:00: 00 Yes [id number] ALLERGIES 1 spray TWICE DAILY 1 spray TWICE DAILY (route: nasal) Alternate Route: NOSTRIL - BOTH. Med Classific ation: Respirato ry Therapy Agents cetirizine 10 mg tablet 09-17 00:00: 00 Yes [id number] ALLERGIES 1 tablet ONCE DAILY 1 tablet ONCE DAILY (route: oral) Med Classific ation: Respirato ry Therapy Agents mecobalamin (vitamin B12) 1,000 mcg chewable tablet 09-17 00:00: 00 Yes [id number] LOW VITAMIN B 1 tablet ONCE DAILY 1 tablet ONCE DAILY (route: oral) Med Classific ation: Electroly te Balance-N utritiona l Products Immunizations Ordered Immunization Name Filled Immunization Name Date Status Comments Refusal Reason INFLUENZA, TIV (INACTIVATED) 2024-07-19 00:00:00 PNEUMOCOCCAL (PPV), PPV 2024-07-19 00:00:00 Vital Signs Vital Name Observation Time Observation Value Commen ts Temperature 2024-11-01 14:05:00.000 97.9 [degF] Temperature 2024-10-31 09:20:00.000 99.1 [degF] Temperature 2024-10-27 10:10:00.000 97.2 [degF] Temperature 2024-10-23 15:22:00.000 97.9 [degF] Temperature 2024-10-18 11:35:00.000 98.5 [degF] Temperature 2024-10-17 14:57:00.000 97.8 [degF] Temperature 2024-10-11 14:06:00.000 98.4 [degF] Temperature 2024-10-10 09:21:00.000 97.9 [degF] Temperature 2024-10-04 15:05:00.000 97.6 [degF] Temperature 2024-10-04 10:13:00.000 98.1 [degF] Temperature 2024-09-28 10:57:00.000 97.8 [degF] Temperature 2024-09-28 10:13:00.000 97.8 [degF] Temperature 2024-09-21 14:36:00.000 97.9 [degF] Temperature 2024-09-21 09:13:00.000 98.6 [degF] Pulse 2024-11-01 14:05:00.000 76 /min Pulse 2024-10-31 09:20:00.000 72 /min Pulse 2024-10-27 10:10:00.000 65 /min Pulse 2024-10-23 15:22:00.000 64 /min Pulse 2024-10-18 11:35:00.000 74 /min Pulse 2024-10-17 14:57:00.000 76 /min Pulse 2024-10-11 14:06:00.000 74 /min Pulse 2024-10-10 09:21:00.000 70 /min Pulse 2024-10-04 15:05:00.000 72 /min Pulse 2024-10-04 10:35:00.000 70 /min Pulse 2024-09-28 10:57:00.000 72 /min Pulse 2024-09-28 10:13:00.000 72 /min Pulse 2024-09-21 14:36:00.000 76 /min Pulse 2024-09-21 09:13:00.000 66 /min O2 Saturation (%) 2024-11-01 14:05:00.000 96 % O2 Saturation (%) 2024-10-31 09:20:00.000 97 % O2 Saturation (%) 2024-10-27 10:10:00.000 99 % O2 Saturation (%) 2024-10-23 15:22:00.000 96 % O2 Saturation (%) 2024-10-17 14:57:00.000 96 % [...] Saturation (%) 2024-09-21 09:13:00.000 98 % Respirations 2024-11-01 14:05:00.000 16 /min Respirations 2024-10-31 09:20:00.000 15 /min Respirations 2024-10-27 10:10:00.000 17 /min Respirations 2024-10-23 15:22:00.000 18 /min Respirations 2024-10-18 11:35:00.000 20 /min Respirations 2024-10-17 14:57:00.000 18 /min Respirations 2024-10-11 14:06:00.000 20 /min Respirations 2024-10-10 09:21:00.000 18 /min Respirations 2024-10-04 15:05:00.000 20 /min Respirations 2024-10-04 10:13:00.000 18 /min Respirations 2024-09-28 10:57:00.000 18 /min Respirations 2024-09-28 10:13:00.000 18 /min Respirations 2024-09-21 14:36:00.000 18 /min Respirations 2024-09-21 09:13:00.000 16 /min Weight (lbs) 2024-10-31 09:27:00.000 97 [lb_av] Weight (lbs) 2024-10-27 10:42:00.000 96.6 [lb_av] Weight (lbs) 2024-10-18 11:35:00.000 93 [lb_av] Weight (lbs) 2024-10-11 14:06:00.000 93 [lb_av] Weight (lbs) 2024-10-04 10:20:00.000 96 [lb_av] Weight (lbs) 2024-09-28 10:57:00.000 103 [lb_av] Weight (lbs) 2024-09-21 09:21:00.000 103 [lb_av] Systolic Blood Pressure 2024-11-01 14:05:00.000 118 mm [Hg] Systolic Blood Pressure 2024-10-31 09:20:00.000 118 mm [Hg] Systolic Blood Pressure 2024-10-27 10:10:00.000 112 mm [Hg] Systolic Blood Pressure 2024-10-23 15:22:00.000 120 mm [Hg] Systolic Blood Pressure 2024-10-18 11:35:00.000 106 mm [...] 09:13:00.000 100 mm [Hg] Diastolic Blood Pressure 2024-11-01 14:05:00.000 64 mm [Hg] Diastolic Blood Pressure 2024-10-31 09:20:00.000 72 mm [Hg] Diastolic Blood Pressure 2024-10-27 10:10:00.000 70 mm [Hg] Diastolic Blood Pressure 2024-10-23 15:22:00.000 70 mm [Hg] Diastolic Blood Pressure 2024-10-18 11:35:00.000 [...] VALERIO PINA, ART; DR. OTIS URRUTIA, DR. CAHD TOLENTINO, DR. AUSTIN AGUSTIN, AND ANYONE COVERING [...] FROM ALTERNATE PHYSICIANS IN A TIMELY MANNER. Encounters Start Date/Time End Date/Time Encounter Type Admission Type Attending Clinicians Care Facility Care Department Encounter ID Discharge Date Discharge Status Discharge Condition Discharge Reason Percent Goals Met 2024 00:00:00 2024-11-15 00:00:00 Outpatient RECERTIFIC ATION RUSS GARCÍA [facility] [id number]
--- OUTSIDE RECORDS SUMMARY | 2024-11-09 13:40 | XMS_ITS | Clinical Summary ---
Author Organization Unknown Care Team Providers Care Nursing Care Attendant Name Role Phone KENNETH CORDOVA, VALERIO Unavailable Unavailable CADE PHYSICAL THERAPIST, CAMILLE Unavailable Unavailable RAQUEL REGISTERED NURSE CANDY DECORATOR, RUSS reza Unavailable Payers Payer Name Policy [...] TO LARGE INTESTINE Active 06-28 00:00: 00 CORN GRINDER (CURRENT) USE OF ANTIBIOTICS Active 06-28 00:00: 00 CARE HOME (CURRENT) [...] 300 mg tablet 07-18 00:00: 00 Yes [id number] HELP WITH SIDE EFFECTS OF BRUKINSA 1 tablet ONCE DAILY 1 tablet ONCE DAILY (route: oral) Med Classific ation: Gout and Hyperuric emia Therapy Brukinsa 80 mg capsule 07-18 00:00: 00 Yes [id number] CANCER 2 capsule TWICE DAILY 2 capsule TWICE DAILY (route: oral) Med Classific ation: Antineopl astics calcium 500 mg (as calcium carbonate 1,250 mg) tablet 07-18 00:00: 00 Yes [id number] SUPPLEMENT 1 tablet ONCE DAILY 1 tablet ONCE DAILY (route: oral) Med Classific ation: Electroly te Balance-N utritiona l Products Dulcolax (bisacodyl) 5 mg tablet,alessio yed release 07-18 00:00: 00 Yes [id number] CONSTIPATIO N 1 tablet ONCE DAILY 1 tablet ONCE DAILY (route: oral) Med Classific ation: Gastroint estinal Therapy Agents Eliquis 2.5 mg tablet 07-18 00:00: 00 Yes [id number] PREVENT CLOTS 1 tablet TWICE DAILY 1 tablet TWICE DAILY (route: oral) Med Classific ation: Hematolog ical Agents hydrocodone 10 mg-acetamin ophen 325 mg tablet 07-18 00:00: 00 09-14 23:59 :00 No [id number] PAIN 1 tablet 3 TIMES DAILY 1 tablet 3 TIMES DAILY (route: oral) Med Classific ation: Analgesic , Anti-infl ammatory or Antipyret ic metoprolol tartrate 25 mg tablet 07-18 00:00: 00 Yes [id number] HYPERTENSIO N 1 tablet TWICE DAILY 1 tablet TWICE DAILY (route: oral) Med Classific ation: Cardiovas cular Therapy Agents Miralax 17 gram/dose oral powder 07-18 00:00: 00 Yes [id number] CONSTIPATIO N Per instruc tions ONCE DAILY Per instructio ns ONCE DAILY (route: oral) Med Classific ation: Gastroint estinal Therapy Agents Vitamin D3 10 mcg (400 unit) tablet 07-18 00:00: 00 Yes [id number] SUPPLEMENT 1 tablet ONCE DAILY 1 tablet ONCE DAILY (route: oral) Med Classific ation: Electroly te Balance-N utritiona l Products acetaminoph en 325 mg capsule 07-28 00:00: 00 Yes [id number] PAIN 2 capsule EVERY 6 HOURS 2 capsule EVERY 6 HOURS (route: oral) Med Classific ation: Analgesic , Anti-infl ammatory or Antipyret ic amoxicillin 875 mg-potassiu m clavulanate 125 mg tablet 08-23 00:00: 00 09-05 23:59 :00 No [id number] DYSURIA 1 tablet TWICE DAILY 1 tablet TWICE DAILY (route: oral) Med Classific ation: Anti-Infe ctive Agents Gemtesa 75 mg tablet 08-18 00:00: 00 Yes [id number] OVERACTIVE BLADDER 1 tablet ONCE DAILY 1 tablet ONCE DAILY (route: oral) Med Classific ation: Genitouri nary Therapy ciprofloxac in 500 mg tablet 09-05 00:00: 00 09-19 23:59 :00 No [id number] COLO/VAGINA L FISTULA AND URINARY TRACT INFECTION 1 tablet TWICE DAILY 1 tablet TWICE DAILY (route: oral) Alternate Route: BY MOUTH. Med Classific ation: Anti-Infe ctive Agents metronidazo le 500 mg tablet 09-05 00:00: 00 09-19 23:59 :00 No [id number] COLO/VAGINA L FISTULA 1 tablet TWICE DAILY 1 tablet TWICE DAILY (route: oral) Alternate Route: BY MOUTH. Med Classific ation: Anti-Infe ctive Agents azelastine 137 mcg (0.1 %) nasal spray 09-17 00:00: 00 Yes [id number] ALLERGIES 1 spray TWICE DAILY 1 spray TWICE DAILY (route: nasal) Alternate Route: NOSTRIL - BOTH. Med Classific ation: Respirato ry Therapy Agents cetirizine 10 mg tablet 09-17 00:00: 00 Yes [id number] ALLERGIES 1 tablet ONCE DAILY 1 tablet ONCE DAILY (route: oral) Med Classific ation: Respirato ry Therapy Agents mecobalamin (vitamin B12) 1,000 mcg chewable tablet 09-17 00:00: 00 Yes [id number] LOW VITAMIN B 1 tablet ONCE DAILY [...] WILL BE ESTABLISHED THAT MEETS ALL PATIENT'S [facility] NEEDS AND COUNTER SIGNED BY PHYSICIAN. Goal [...] 2024-11-15 00:00:00 Outpatient RECERTIFIC ATION RUSS GARCÍA [facility] [id number]
--- OUTSIDE RECORDS SUMMARY | 2024-11-09 13:40 | XMS_ITS ---
Author Name Auto Generated, Auto Generated Organization [facility] Address [address] [place] [address] Phone [phone] Care Team Providers Care Child Guidance Counselor Name Role Phone Latesha Lowryn Unavailable [phone] Functional Status No Results Mental Status No [...] 12:00:00 EDT 2022 16 14:06:00 EDT 2022 [place]-3 Fish OiL 300 mg-1,000 mg capsule 1 [...] 2022 * End Date: * Text: * salvage determiner (current) use of anticoagulants* Code: * Start Date: WedApr 09 00:00:00 EDT 2022 * End Date: * Text: * salvage determiner (current) use of aspirin* Code: * Start [...]
--- NOTE | 2024-11-09 13:52 | ED.GENADULT ---
HPI - General Adult General Chief complaint: Urogenital-Female Stated complaint: Under Tx for UTI-not getting better Time Seen by Provider: 11/09/24 13:30 History of Present Illness HPI narrative: Patient is a 89-year-old female with history of mild dementia and recurrent UTI that presents ER with concerns for UTI and altered mental status. Patient has been seeing people who were not actually there over last week. She is currently taking linezolid for a multi-drug resistant urinary infection. No reported fevers or chills. Patient is having burning urination. Family reports patient has some back pain that is chronic. No recent fall however patient does have bruising to her left face from a fall on which was 3 weeks ago. Related Data Home Medications Medication Instructions Recorded Confirmed Last Taken Type [id number]-[id number]-[id number] acid 240 1 tablet PO DAILY 04/02/23 10/03/24 04/02/23 History mcg-vit K 120 [id number] 293 tablet (Alive Women's 50 Plus (fruit-veg blend)) metoprolol tartrate 25 mg tablet 25 mg PO BID 10/29/23 10/03/24 12/17/23 History allopurinol 300 mg tablet 300 mg PO DAILY 09/18/24 10/03/24 Unknown History azelastine 205.5 mcg (0.15 %) 2 spray intranasal DAILY 09/18/24 10/03/24 Unknown History nasal spray (Astepro Allergy) calcium glucarate 500 mg capsule 1 tab-cap PO DAILY 09/18/24 10/03/24 Unknown History cetirizine 10 mg tablet (24Hour 10 mg PO DAILY PRN 09/18/24 10/03/24 Unknown History Allergy) cholecalciferol (vitamin D3) 25 25 mcg PO DAILY 09/18/24 10/03/24 Unknown History mcg (1,000 unit) capsule mecobalamin (vitamin B12) 1,000 1,000 mcg PO DAILY 09/18/24 10/03/24 Unknown History mcg chewable tablet zanubrutinib 80 mg capsule 80 mg PO BID 09/18/24 10/03/24 Unknown History (Brukinsa) Allergies Allergy/AdvReac Type Severity Reaction Status Date / Time tetracycline Allergy Unknown Unknown Verified 11/09/24 13:30 ibrutinib AdvReac Rash Verified 11/09/24 13:30 Review of Systems Review of Systems: ROS unobtainable: Yes unobtainable due to mental status PMFSH Past Medical History Medical History Vancomycin resistant Enterococcus Colovaginal fistula Abnormal weight loss Rectovaginal fistula Altered mental status Atrial fibrillation Cataract Anemia Kidney stones Heart murmur Osteoporosis Postmenopausal Vitamin D deficiency Hypertension Chronic anemia Bacteremia due to Klebsiella pneumoniae Mild pulmonary hypertension Moderate mitral regurgitation Mild aortic stenosis Closed fracture of greater trochanter of left femur History of UTI Chronic lymphocytic leukemia Surgical History Surgical History H/O cataract extraction History of colonoscopy with polypectomy History of total abdominal hysterectomy History of laparoscopic cholecystectomy Family History Family History Father Family history of lung cancer Patient's father is Mother Patient's mother is Social History Social History Social History: She is and lives home alone. She has 3 children. Her son and daughter that live nearby ER that [facility] power attorney at law for healthcare. She has never smoked. She worked for [employer]. No alcohol marijuana or illicit drugs. Code status full code Smoking status: Never smoker Second hand tobacco smoke exposure: Yes Alcohol intake: never Substance use: never Substance use type: does not use Do You Feel Safe in your Home?: Yes Lack of Transportation: No Lack of Food: Never True Current Housing: I Have Housing Concerned About Future Housing: No Difficulty Paying Gas/Electric Bills: No Difficulty Paying for Meds: No Currently Unemployed: No Education: High School Diploma/GED Difficulty w/ Childcare or Family Care: No Living arrangements: alone Occupation/Education: retired Gender identity (if verbalized by the patient): Female Spiritual care concerns: No Exam Narrative: GENERAL: Well-appearing, well-nourished, and in no acute distress. HEAD: Normocephalic, atraumatic. EYES: PERRL and EOMI. Contusion under left eye. ENT: Mucous membranes moist. CHEST: Clear to auscultation. No respiratory distress. HEART: Irregularly irregular rate and rhythm. Normal peripheral pulses. ABDOMEN: Soft, nontender, nondistended, normal active bowel sounds. Rectal exam with external hemorrhoids 1 that is thrombosed. : Mild erythema of the labia bilaterally. Stool coming from the vagina consistent with known fistula. EXTREMITIES: Normal range of motion. No edema. SKIN: Warm, dry, no rash. NEURO: Alert and oriented x2. Course Course Emergency Course: Urinalysis without infection. CT of the abdomen reviewed. Rectal exam shows hemorrhoids 1 which is thrombosed. No perianal tenderness or induration. Exam not consistent with any abscess. Recommend barrier cream for labial irritation. Discharge home. Vital Signs Vital signs: Vital Signs Temperature 97.6 F 11/09/24 13:15 Pulse Rate 66 11/09/24 13:15 Respiratory Rate 18 11/09/24 13:15 Blood Pressure 114/71 11/09/24 13:15 Pulse Oximetry 98 11/09/24 13:15 Oxygen Delivery Room Air 11/09/24 13:15 Temperature 97.6 F 11/09/24 13:15 Pulse Rate 66 11/09/24 18:47 Respiratory Rate 19 11/09/24 18:47 Blood Pressure 114/82 11/09/24 18:47 Pulse Oximetry 100 11/09/24 18:47 Oxygen Delivery Room Air 11/09/24 13:15 Medical Decision Making Vital Signs Vital Signs: Vital Signs Temperature 97.6 F 11/09/24 13:15 Pulse Rate 66 11/09/24 13:15 Respiratory Rate 18 11/09/24 13:15 Blood Pressure 114/71 11/09/24 13:15 Pulse Oximetry 98 11/09/24 13:15 Oxygen Delivery Room Air 11/09/24 13:15 Temperature 97.6 F 11/09/24 13:15 Pulse Rate 66 11/09/24 18:47 Respiratory Rate 19 11/09/24 18:47 Blood Pressure 114/82 11/09/24 18:47 Pulse Oximetry 100 11/09/24 18:47 Oxygen Delivery Room Air 11/09/24 13:15 Lab Data 11/09/24 13:50 11/09/24 13:50 Labs: Lab Results 11/09/24 11/09/24 Range/Units 13:50 14:07 WBC 60.5 H* (4.5-10.0) K/mm3 RBC 3.52 L (4.2-5.4) M/mm3 Hgb 10.6 L (12.0-15.0) g/dL Hct 34.9 L (37.0-47.0) % MCV 99.1 (80-100) fl MCH 30.1 (26-34) pg MCHC 30.4 L (32-36) g/dl RDW 16.6 H (11.5-14.5) % Plt Count 170 (150-375) k/mm3 MPV 10.8 H (7.4-10.4) fl Immature Gran % (Auto) 0.2 (0-0.5) % Neut % (Auto) 10.1 L (45.5-73.1) % Lymph % (Auto) 88.9 H (18.3-44.2) % Sherman % (Auto) 0.6 L (2.6-8.5) % Eos % (Auto) 0.1 (0-4.4) % Baso % (Auto) 0.1 L (0.2-1.2) % Lymph # (Auto) 53.80 H (0.9-3.2) K/mm3 Sherman # (Auto) 0.3 (0.1-0.6) K/mm3 Eos # (Auto) 0.1 (0-0.3) K/mm3 Baso # (Auto) 0.0 (0.0-0.1) K/mm3 Abs Immat Gran (auto) 0.12 H (0.00-0.031) K/mm3 Absolute Neuts (auto) 6.2 (1.3-6.7) K/mm3 Absolute Nucleated RBC 0.000 (0.0-0.012) K/mm3 Band Neutrophils % Not Reportable Nucleated RBC % 0.0 (0.0-0.2) % Smudge Cells Present Platelet Estimate Adequate (Adequate) Schistocytes None seen PT 17.4 H (11.1-14.7) Seconds INR 1.4 APTT 33.8 (22.3-36.8) Seconds Sodium 132 L (137-145) mmol/L Potassium 4.6 (3.4-5.0) mmol/L Chloride 101 (98-107) mmol/L Carbon Dioxide 25 (22-30) mmol/L Anion Gap 6 (4-12) mmol/L BUN 17 (7-17) mg/dL Creatinine 0.97 (0.7-1.0) mg/dL Estim Creat Clear Calc Not Reportable Estimated GFR 54 L (59 - ) Glucose 134 H (65-110) mg/dL Lactic Acid 1.6 (0.7-2.0) mmol/L Calcium 9.0 (8.4-10.2) mg/dL Total Bilirubin 2.3 H (0.2-1.3) mg/dL AST 35 (14-36) U/L ALT 17 (6-35) U/L Alkaline Phosphatase 50 (38-126) U/L Total Protein 7.0 (6.3-8.2) g/dL Albumin 3.8 (3.5-5.1) g/dL Urine Color Yellow (Yellow) Urine Appearance Clear (Clear) Urine pH 7.0 (5.0-9.0) Ur Specific [place] 1.014 (1.001-1.035) Urine Protein Negative (Negative) mg/dL Urine Glucose (UA) Negative (Negative) mg/dL Urine Ketones Negative (Negative) mg/dL Ur Blood (Man) 3+ H (Negative) Urine Nitrate Negative (Negative) Urine Bilirubin Negative (Negative) Urine Urobilinogen 1.0 (<2.0) mg/dL Add Ur Microanalysis Reviewed Leukocyte Esterase Rfl Trace H (Negative) KALLI/UL Urine RBC 51-100 H (0-2) /hpf Urine WBC 0-5 (0-3) /hpf Ur Squamous Epith Cells None seen (Few) /hpf Urine Bacteria None seen /hpf Urine Casts 0-2 Imaging Data Radiologist's impression: ITS Impressions Head CT 11/09/24 17:36 IMPRESSION: No acute intracranial findings. Abdomen/Pelvis CT 11/09/24 17:41 IMPRESSION: 1. Intramural abscess in the sigmoid colon unchanged from previous examination. 2. Hypodensities in the perianal area which may indicate abscesses. Increased density is seen in these areas which may be calcification or contrast extravasation. Clinical correlation is advised. Discharge Plan Discharge Clinical Impression: Labia irritation, Hemorrhoids Patient Disposition: Home Condition: Stable Instructions: Hemorrhoids (ED) Additional Instructions: Follow-up with your primary care doctor for further treatment evaluation. Return the ER if you have fever 100.4° F, no chest pain with shortness of breath, or you have additional concerns. Patient Language: Armenian Prescriptions: New docusate sodium [Colace] 100 mg capsule 100 mg PO BID Qty: 14 0RF hydrocortisone 1 % cream with perineal applicator 1 applic RECTAL BID Qty: 28.4 0RF Desitin 40 % paste 1 applic topical TID Qty: 57 0RF No Action Gemtesa 75 mg tablet 75 mg PO DAILY Qty: 30 2RF Brukinsa 80 mg capsule 80 mg PO BID allopurinol 300 mg tablet 300 mg PO DAILY cholecalciferol (vitamin D3) 25 mcg (1,000 unit) capsule 25 mcg PO DAILY calcium glucarate 500 mg capsule 1 tab-cap PO DAILY cetirizine [24Hour Allergy] 10 mg tablet 10 mg PO DAILY PRN azelastine [Astepro Allergy] 205.5 mcg (0.15 %) spray,non-aerosol 2 spray intranasal DAILY Rx Instructions: administer into each nostril mecobalamin (vitamin B12) 1,000 mcg tablet,chewable 1,000 mcg PO DAILY acetaminophen 325 mg Tablet 650 mg PO Q4H PRN (Reason: Mild Pain (1-3) Or Fever) Qty: 60 0RF Alive Women's 50 Plus (blend) 240-120-300 mcg Tablet 1 tablet PO DAILY Eliquis 2.5 mg Tablet 2.5 mg PO Q12HR Qty: 60 0RF metoprolol tartrate 25 mg tablet 25 mg PO BID linezolid 600 mg tablet 600 mg PO Q12H 14 Days Qty: 28 0RF Follow-up/Referrals: Eliseo Waters DO [Primary Care Provider] - 1 Week
[2024-11-09] MEDS: SODIUM CHLORIDE 0.9% IV 1,000 ML 999 ML IV CONT (13:55)
[2024-11-09 14:04] LABS: Basophils Percent Auto 0.1 % (0.2-1.2); Eosinophils Absolute Auto 0.1 K/mm3 (0-0.3); Eosinophils Percent Auto 0.1 % (0-4.4); Hematocrit 34.9 % (37.0-47.0); Hemoglobin 10.6 g/dL (12.0-15.0); Immature Granulocyte Absolute 0.12 K/mm3 (0.00-0.031); Immature Granulocyte Percent A 0.2 % (0-0.5); Lymphocytes Percent Auto 88.9 % (18.3-44.2); Mean Corpuscular HGB Conc 30.4 g/dl (32-36); Mean Corpuscular Hemoglobin 30.1 pg (26-34); Mean Corpuscular Volume 99.1 fl (80-100); Mean Platelet Volume 10.8 fl (7.4-10.4); Monocytes Absolute Auto 0.3 K/mm3 (0.1-0.6); Monocytes Percent Auto 0.6 % (2.6-8.5); Neutrophils Absolute Auto 6.2 K/mm3 (1.3-6.7); Neutrophils Percent Auto 10.1 % (45.5-73.1); Platelet Count Result 170 k/mm3 (150-375); Red Blood Count 3.52 M/mm3 (4.2-5.4); Red Cell Distribution Width 16.6 % (11.5-14.5)
[2024-11-09 14:15] LABS: INR 1.4; Prothrombin Time 17.4 Seconds (11.1-14.7)
[2024-11-09 14:16] LABS: Partial Thromboplastin Time 33.8 Seconds (22.3-36.8)
[2024-11-09 14:23] LABS: Alanine Aminotransferase 17 U/L (6-35); Albumin Level 3.8 g/dL (3.5-5.1); Alkaline Phosphatase 50 U/L (38-126); Anion Gap 6 mmol/L (4-12); Aspartate Amino Transferase 35 U/L (14-36); Bilirubin,Total 2.3 mg/dL (0.2-1.3); Blood Urea Nitrogen 17 mg/dL (7-17); Carbon Dioxide 25 mmol/L (22-30); Chloride 101 mmol/L (98-107); Estimated Glomerular Filt Rate 54; Glucose 134 mg/dL (65-110); Lactic Acid Reflex 1.6 mmol/L (0.7-2.0); Potassium 4.6 mmol/L (3.4-5.0); Sodium 132 mmol/L (137-145)
[2024-11-09 14:27] LABS: Add Urine Microscopic? YES; Appearance Urine Clear (Clear); Bacteria Urine None Seen /hpf; Bilirubin Urine Negative (Negative); Blood Urine 3+ (Negative); Color Urine Yellow (Yellow); Glucose Urine UA Negative (Negative); Ketones Urine Negative (Negative); Leukocyte Esterase Ur Trace LEU/UL (Negative); Need Manual Microscopic Reviewed; Nitrate Urine Negative (Negative); Non Pathogenic Casts 0-2; Protein Urine Negative (Negative); RBC Urine 51-100 /hpf (0-2); Specific Grav Ur 1.014 (1.001-1.035); Squamous Epithelial Cell Urine None Seen /hpf (Few); WBC Urine 0-5 /hpf (0-3)
[2024-11-09 14:35] LABS: White Blood Count 60.5 K/mm3 (4.5-10.0)
[2024-11-09 14:36] LABS: Platelet Estimate Adequate (Adequate); Schistocytes None Seen; Smudge Cells PRESENT
[2024-11-09 15:47] VITALS: BP 138/89; PULSE 70; RESP 19; O2SAT 100
[2024-11-09 18:20] VITALS: BP 145/77; PULSE 83; RESP 19; O2SAT 98
[2024-11-09 18:47] VITALS: BP 114/82; PULSE 66; RESP 19; O2SAT 100
== END 2024-11-09 18:49 | disposition home or self-care (01) ==
PROVIDERS: Emergency Provider Emergency Medicine; PCP Internal Medicine
DX: N89.8 Other specified noninflammatory disorders of vagina (principal); K64.9 Unspecified hemorrhoids; F03.90 Unspecified dementia, unspecified severity, without behavioral disturbance, psychotic disturbance, mood disturbance, and anxiety; I48.91 Unspecified atrial fibrillation; E55.9 Vitamin D deficiency, unspecified; I10 Essential (primary) hypertension; Z85.6 Personal history of leukemia; Z87.440 Personal history of urinary (tract) infections
CPT/HCPCS: 36415; 70450; 74177; 80053; 81001; 83605; 85025; 85610; 85730; 96360; 99284; J7030; Q9967

== ENCOUNTER 2024-11-15 10:10 | Outpatient (CLI) | payer MEDICARE, SELFPAY ==
--- NOTE | ~2024-11-15 | XR_ITS ---
Left Knee Technique: AP, lateral, and sunrise views were obtained. Clinical History: Pain Findings: No fracture or dislocation is seen. There is severe degenerative change of the medial saniya rtment, with marked joint space narrowing and medial joint line osteophyte formation. There is minima l degenerative change of the lateral patellofemoral compartments.. Small joint effusion is seen. Impression: Severe medial compartment degenerative change. Mild degenerative change of the lateral and patellofem oral compartment. Small joint effusion. Reviewed, dictated and finalized at location M. Impression: Severe medial compartment degenerative change. Mild degenerative change of the lateral and patellofemoral compartment. Small joint effusion.
== END 2024-11-15 10:11 | disposition home or self-care (01) ==
LOC: GOSHIMG 10:10
PROVIDERS: PCP Nurse Practitioner; Visit Provider Nurse Practitioner
DX: R29.6 Repeated falls (principal); M25.462 Effusion, left knee; M17.12 Unilateral primary osteoarthritis, left knee
CPT/HCPCS: 73564

== ENCOUNTER 2024-12-27 09:06 | Outpatient (CLI) | payer MEDICARE, SELFPAY ==
--- OUTSIDE RECORDS SUMMARY | 2024-12-27 09:12 | XMS_ITS | Data Portability ---
Author Organization [facility] [employer], Main Office Address [address] [place] [address] Assessment No assessment recorded. Plan of Treatment [...] LastModifiedBy Organization Detail LastModifiedTime 01/17/20 21 01/16/2021 allen bingham am No observ ation record ed. [id number] , [address], [place], [address], 08/26/2022 23:11:14 02/20/20 21 01/15/2021 elect kaylan bingham am No observ ation record ed. [id number] [address], [place], [address], 08/26/2022 23:11:14 04/14/20 22 XR, lumbo sacra l spine , 2 or 3 view [facility] [address] [place] [address] [phone] Fernando t Name: SANDRA FORD Access ion #: [id number] Sex: F : 1935 4 Locati on: RA2 Attend ing Physic lynnette: MARINO IB, RUNDA Orderi ng Physic lynnette: MARINO IB, RUNDA Exam Date: 2021 8:59 AM [...] abdomi nal aorta Page 1 of 2 [facility] Pati t Name: SANDRA FORD Access ion #: [id number] Sex: F : 1935 4 Exam [...] 9:14 AM (CT) Page 2 of 2 [id number] [facility] (Imaging) [address] [place], [address], 08/26/2022 23:11:14 04/14/20 22 04/14/2022 XR, lumbo sacra l spine , 2 or 3 view No observ ation record ed. [id number] , [place], [address], 08/26/2022 23:11:14 06/15/20 22 06/15/2022 imagi ng/di agnos tic resul t No observ ation record ed. [id number], [place], [address], 08/26/2022 23:11:14 06/15/20 22 06/15/2022 imagi ng/di agnos tic resul t No observ ation record ed. [id number] [place] [address] [address], [place], [address], 08/26/2022 23:11:14 06/23/20 22 06/23/2022 CT, abdom en + pelvi s, w/ contr ast No observ ation record ed. [id number] [place] [address] [address], [place], [address], 08/26/2022 23:11:14 07/31/19 23 07/31/2022 CT, abdom en + pelvi s, w/ contr ast No observ ation record ed. [id number] [place] [address] [address], [place], [address], 08/26/2022 23:11:14 04/02/20 23 04/02/2023 XR, wrist , 3 or more view No observ ation record ed. [email or web address], [place], [address], 04/05/2023 10:20:44 04/02/20 23 04/02/2023 XR, hip, bilat eral, 2 view No observ ation record ed. [email or web address], [place], [address], 04/05/2023 10:22:37 04/02/20 23 04/02/2023 XR, femur , 2 or more view No observ ation record ed. [address], [place], [address], 04/05/2023 10:23:23 04/03/20 23 04/03/2023 CT, hip, w/o contr ast No observ ation record ed. [address], [place], [address], 04/05/2023 10:24:12 04/03/20 23 04/03/2023 XR, chest , 2 view No observ ation record ed. [address], [place], [address], 04/05/2023 10:25:09 04/05/20 23 04/05/2023 stres s echoc ardio gram No observ ation record ed. [address], [place], [address], 04/05/2023 15:52:26 04/05/2004/05/2023 XR, shoul maxim No observ ation record ed. [address], [place], [address], 04/05/2023 15:52:39 Result Notes Documentation Provider Name and Address Organization Details Recorded Time Xr, Lumbosacral Spine, 2 Or 3 View : [address] [address] Patient Name: SANDRA FORD Sex: F : 1935 Location: [facility] Attending Physician: GEORGETTE MOLINA Ordering Physician: GEORGETTE MOLINA Exam Date: 04/14/2022 8:59 AM Exam Name: XR L SPINE 2-3V Admitting Diagnosis(es): RADIOLOGY REPORT - FINAL EXAM: XR L SPINE 2-3V HISTORY: Lower back pain x2 years COMPARISON: None available. TECHNIQUE: AP and lateral views of the lumbar spine and spot lateral of the lumbosacral junction were performed. FINDINGS: No fracture or destructive process. Severe multilevel degenerative changes noted throughout the lumbar spine. 35 degree scoliosis convex right is noted at L3-4, 12 degree convex left scoliotic curvature noted at L2-3. Left femoroacetabular joint osteoarthritic residuals noted. Cholecystectomy clips noted. Vascular calcifications noted along the length of the abdominal aorta Page 1 of 2 [facility] Patient Name: SANDRA FORD Sex: F : 1935 Exam Date: 04/14/2022 8:59 AM Exam Name: XR L SPINE 2-3V Admitting Diagnosis(es): extending the common iliac arteries, no definite aneurysm. IMPRESSION: See above. Created and electronically signed by: Cricket Ceballos MD Signed Date: 04/14/2022 9:15 AM (CT) Dictated by: Cricket Ceballos MD (CT) (CT) Page 2 of 2 Not Available [facility] 08/26/2022 23:11:16 Problems Name Problem SNOMED Code Status Onset Date Resolution Date Notes Provider Name and Address Organization Details Recorded Time Knee pain Active 2020 Not Available [facility] 3 23:08:39 History of back pain 87624462281 4102 Active 2020 Not Available [facility] 3 23:08:39 Chronic lymphoid leukemia, disease 85672878 Active 2020 Not Available [facility] 3 23:08:39 Leukemia 01229389 Completed 202001/15/2021 Not Available [facility] 3 23:08:40 Colovagin al fistula 799988723 Active 2022 Georgette Campuzano MD [address] [place] [address], [place] [address], [place], [address] , [facility] [employer] [facility] 3 10:24:16 Problem Notes None recorded. Procedures Surgical History Date Name Laterality Status Provider Name and Address Organization Details Recorded Time Cataract Surgery completed Not Available [facility] 08/26/2022 23:06:17 cardiac catheterization completed Not Available [facility] 08/26/2022 23:06:17 colonoscopy completed Not Available [facility] 08/26/2022 23:06:17 dacryocystotomy completed Not Available [facility] 08/26/2022 23:06:17 Hysterectomy completed Not Available [facility] 08/26/2022 23:06:17 Cholecystectomy completed Not Available [facility] 08/26/2022 23:06:17 Imaging Results None recorded. Procedure Notes None recorded. Medical Equipment None [...] No t Available Vitals Date Recorded Body height Body mass index (BMI) Body weight Body temperature Heart rate Oxygen saturation Oxygen saturation in Arterial blood by Pulse oximetry Systolic blood pressure Diastolic blood pressure Provider Name and Address Organization Details Last Updated DateTime 3 147.32 cm 26.1 kg/m2 59506.0 5 g 98.7 [degF] 103 /min 98 % 98 % 130 mm[Hg] 80 mm[Hg] MARIELA Mckeon [place] - [facility] 3 10:07:40 Date Recorded Body mass index (BMI) Body height Oxygen saturation Oxygen saturation in Arterial blood by Pulse oximetry Heart rate Body temperature Body weight Systolic blood pressure Diastolic blood pressure Provider Name and Address Organization Details Last Updated DateTime 1 27.8 kg/m2 147.32 cm 96 % 96 % 84 /min 97.3 [degF] 73317.7 9 g 116 mm[Hg] 76 mm[Hg] Not Available [facility] 3 23:08:21 Date Recorded Body mass index (BMI) Body height Oxygen saturation Oxygen saturation in Arterial blood by Pulse oximetry Heart rate Body temperature Body weight Systolic blood pressure Diastolic blood pressure Provider Name and Address Organization Details Last Updated DateTime 2 27.4 kg/m2 147.32 cm 98 % 98 % 113 /min 97.3 [degF] 47256.6 g 144 mm[Hg] 90 mm[Hg] Not Available [facility] 3 23:08:21 Social History Question Answer Notes LastModified by Organizat ion Details LastModified Time Tobacco Smoking Status Never Smoker Not Available [facility] 08/26/2022 23:06:07 In The 14 Days Before Symptom Onset, Have You Had Close Contact With A Laboratory-confirm ed COVID-19 While That Case Was Ill? No [id number] Information not available 08/26/2022 In The 14 Days Before Symptom Onset, Have You Had Close Contact With A Person Who Is Under Investigation For COVID-19 While That Person Was Ill? No [id number] Information not available 08/26/2022 Sex: Unknown Functional Status Question Answer Note LastModified by Organizat ion Details LastModified Time What is your level of alcohol consumption? None [id number] Information not available 08/26/2022 Mental Status None recorded. Family History Relationship Description Onset Age of this Age Resolved Age Notes LastModified by Organization Details LastModified Time Father Calcificatio n of lung [id number] Not available 08/26/2022 23:06:23 Father Malignant neoplasm of lung [id number] Not available 08/26/2022 23:06:23 Mother Aneurysm [id number] Not available 08/26/2022 23:06:23 Medical History Condition [...] HAVE YOU BEEN HOSPITALIZED OR SEEN IN [facility] IN THE PAST YEAR ? N [...] SNOMED-CT Code Diagnosis ICD10 Code Diagnosis Note [id number] Georgette Campuzano MD [facility] [place] [address] [facility] [place] [address] 01/15/2021 00:00:00 01/16/2021 06:41:22 [id number] Georgette Campuzano MD [facility] [place] [employer] [address] [place] [address] [place] [address] 04/14/2022 00:00:00 04/14/2022 12:21:36 [id number] Georgette Campuzano MD [facility] [place] [address] [place] [address] [place] [address] 10/14/2022 09:54:33 10/14/2022 10:29:47 Colovaginal fistula [id number] N82.3 No need for surgery at this time. Chronic ly mphoid leukemia, disease 58691488 C91.10 F/u with oncologist /hematolog ist Health Concerns Section Related Observation LastModified by Organization Detai ls LastModified Time None Recorded Concern Status LastModified by Organization Details LastModified Time None Recorded Advance Directives Directive None Recorded Payers Insurance Date Sequence Insurance Name Policy Number Policy Lua Covered Member ID Lua Member ID Guarantor Name 10/14/2022 1 [facility] (MEDICARE REPLACEMENT/A DVANTAGE - PPO) [id number] Sandra Ford [id number] Sandra Ford 05/28/2023 1 [facility] (MEDICARE REPLACEMENT/A DVANTAGE - PPO) [id number] Sandra Ford [id number] Sandra Ford Notes Date Note Type Note [...] vaginal discharge very slight. Georgette Campuzano MD [address] [place] [address] Jannet [facility] [address], [place], [address], [place] [facility] 10/14/2022 10:45:32 OBGyn Episode No OBEpisode recorded.
--- OUTSIDE RECORDS SUMMARY | 2024-12-27 09:12 | XMS_ITS ---
Author Name Auto Generated, Auto Generated Organization [employer] Address [address] [place] [address] Phone [phone] Care Team Providers Care Trimmer Sorter Name Role Phone Latesha Lowryn Unavailable [phone] Functional Status No Results Mental Status No [...] 12:00:00 EDT 2022 16 14:06:[address] [place]-[address] Fish OiL 300 mg-1,000 mg capsule 1 [...] 2022 * End Date: * Text: * meterman (current) use of anticoagulants* Code: * Start Date: WedApr 09 00:00:00 EDT 2022 * End Date: * Text: * meterman (current) use of aspirin* Code: * Start [...]
[2024-12-27 09:30] LABS: Hematocrit 38.2 % (37.0-47.0); Hemoglobin 11.5 g/dL (12.0-15.0); Immature Granulocyte Percent A 0.2 % (0-0.5); Lymphocytes Absolute Auto 9.40 K/mm3 (0.9-3.2); Mean Corpuscular HGB Conc 30.1 g/dl (32-36); Mean Corpuscular Hemoglobin 30.1 pg (26-34); Mean Corpuscular Volume 100.0 fl (80-100); Nucleated Red Blood Cells Absolute Auto 0.000 K/mm3 (0.0-0.012); Nucleated Red Blood Cells Perc 0.0 % (0.0-0.2); Platelet Count Result 174 k/mm3 (150-375); Red Blood Count 3.82 M/mm3 (4.2-5.4); White Blood Count 15.1 K/mm3 (4.5-10.0)
[2024-12-27 10:08] LABS: Lymphocytes Absolute Manual 10.41 K/mm3 (1.1-4.5); Lymphocytes Percent Manual 69 % (18-44); Monocytes Absolute Manual 0.45 K/mm3 (0.1-0.90); Monocytes Percent Manual 3 % (3-9); Neutrophils Percent Manual 28 % (46-73); Total Cells Counted 100
[2024-12-27 10:09] LABS: Anisocytosis 1+; Schistocytes None Seen; Smudge Cells PRESENT
[2024-12-27 11:15] LABS: Iron 53 ug/dL (37-170)
[2024-12-27 11:22] LABS: Anion Gap 8 mmol/L (4-12); Blood Urea Nitrogen 19 mg/dL (7-17); Calcium 9.7 mg/dL (8.4-10.2); Carbon Dioxide 26 mmol/L (22-30); Chloride 105 mmol/L (98-107); Estimated Glomerular Filt Rate 54; Glucose 95 mg/dL (65-110); Potassium 4.7 mmol/L (3.4-5.0); Sodium 139 mmol/L (137-145)
[2024-12-27 11:30] LABS: Percent Iron Saturation 21 % (20-50)
[2024-12-27 11:49] LABS: Ferritin 85.40 ng/mL (11.1-264)
== END 2024-12-27 09:07 | disposition home or self-care (01) ==
LOC: ANHLAB 09:08
PROVIDERS: PCP Nurse Practitioner; Visit Provider Internal Medicine Hematology & Oncology
DX: C91.10 Chronic lymphocytic leukemia of B-cell type not having achieved remission (principal)
CPT/HCPCS: 36415; 80048; 82728; 83540; 83550; 85025

== ENCOUNTER 2025-02-08 09:10 | Outpatient (NON) | payer MEDICARE, SELFPAY ==
--- OUTSIDE RECORDS SUMMARY | 2025-02-08 09:20 | XMS_ITS | Clinical Summary ---
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 06-28 00:00: 00 JAIL (CURRENT) USE OF ANTICOAGULAN TS Active 06-28 00:00: 00 OTHER JAIL (CURRENT) DRUG THERAPY Active 06-28 00:00: 00 [...] allopurinol 300 mg tablet 07-18 00:00: 00 11-13 23:59 :00 No [id number] HELP WITH SIDE EFFECTS OF BRUKINSA 1 tablet ONCE DAILY 1 tablet ONCE DAILY (route: oral) Med Classific ation: Gout and Hyperuric emia Therapy Brukinsa 80 mg capsule 07-18 00:00: 00 11-13 23:59 :00 No [id number] CANCER 2 capsule TWICE DAILY 2 capsule TWICE DAILY (route: oral) Med Classific ation: Antineopl astics calcium 500 mg (as calcium carbonate 1,250 mg) tablet 07-18 00:00: 00 Yes [id number] SUPPLEMENT 1 tablet ONCE DAILY 1 tablet ONCE DAILY (route: oral) Med Classific ation: Electroly te Balance-N utritiona l Products Dulcolax (bisacodyl) 5 mg tablet,alessio yed release 07-18 00:00: 00 Yes [id number] CONSTIPATIO N 1 tablet ONCE DAILY 1 tablet ONCE DAILY (route: oral) Med Classific ation: Gastroint estinal Therapy Agents Eliquis 2.5 mg tablet 07-18 00:00: 00 Yes [id number] PREVENT CLOTS 1 tablet TWICE DAILY 1 tablet TWICE DAILY (route: oral) Med Classific ation: Hematolog ical Agents hydrocodone 10 mg-acetamin ophen 325 mg tablet 07-18 00:00: 00 09-14 23:59 :00 No [id number] PAIN 1 tablet 3 TIMES DAILY 1 tablet 3 TIMES DAILY (route: oral) Med Classific ation: Analgesic , Anti-infl ammatory or Antipyret ic metoprolol tartrate 25 mg tablet 07-18 00:00: 00 Yes [id number] HYPERTENSIO N 1 tablet TWICE DAILY 1 tablet TWICE DAILY (route: oral) Med Classific ation: Cardiovas cular Therapy Agents Miralax 17 gram/dose oral powder 07-18 00:00: 00 01-15 23:59 :00 No [id number] CONSTIPATIO N Per instruc tions ONCE DAILY Per instructio ns ONCE DAILY (route: oral) Med Classific ation: Gastroint estinal Therapy Agents Vitamin D3 10 mcg (400 unit) tablet 07-18 00:00: 00 Yes [id number] SUPPLEMENT 1 tablet ONCE DAILY 1 tablet ONCE DAILY (route: oral) Med Classific ation: Electroly te Balance-N utritiona l Products acetaminoph en 325 mg capsule 07-28 00:00: 00 Yes [id number] PAIN 2 capsule EVERY 6 HOURS 2 capsule EVERY 6 HOURS (route: oral) Med Classific ation: Analgesic , Anti-infl ammatory or Antipyret ic amoxicillin 875 mg-potassiu m clavulanate 125 mg tablet 08-23 00:00: 00 09-05 23:59 :00 No [id number] DYSURIA 1 tablet TWICE DAILY 1 tablet TWICE DAILY (route: oral) Med Classific ation: Anti-Infe ctive Agents Gemtesa 75 mg tablet 08-18 00:00: 00 11-13 23:59 :00 No [id number] OVERACTIVE BLADDER 1 tablet ONCE DAILY 1 tablet ONCE DAILY (route: oral) Med Classific ation: Genitouri nary Therapy ciprofloxac in 500 mg tablet 09-05 00:00: 00 09-19 23:59 :00 No [id number] COLO/VAGINA L FISTULA AND URINARY TRACT INFECTION 1 tablet TWICE DAILY 1 tablet TWICE DAILY (route: oral) Alternate Route: BY MOUTH. Med Classific ation: Anti-Infe ctive Agents metronidazo le 500 mg tablet 09-05 00:00: 00 09-19 23:59 :00 No [id number] COLO/VAGINA L FISTULA 1 tablet TWICE DAILY 1 tablet TWICE DAILY (route: oral) Alternate Route: BY MOUTH. Med Classific ation: Anti-Infe ctive Agents azelastine 137 mcg (0.1 %) nasal spray 09-17 00:00: 00 Yes [id number] ALLERGIES 1 spray TWICE DAILY 1 spray TWICE DAILY (route: nasal) Alternate Route: NOSTRIL - BOTH. Med Classific ation: Respirato ry Therapy Agents cetirizine 10 mg tablet 09-17 00:00: 00 01-15 23:59 :00 No [id number] ALLERGIES 1 tablet ONCE DAILY 1 tablet ONCE DAILY (route: oral) Med Classific ation: Respirato ry Therapy Agents mecobalamin (vitamin B12) 1,000 mcg chewable tablet 09-17 00:00: 00 Yes [id number] LOW VITAMIN B 1 tablet ONCE DAILY 1 tablet ONCE DAILY (route: oral) Med Classific ation: Electroly te Balance-N utritiona l Products docusate sodium 100 mg capsule 11-16 00:00: 00 Yes [id number] CONSTIPATIO N 1 capsule TWICE DAILY 1 capsule TWICE DAILY (route: oral) Med Classific ation: Gastroint estinal Therapy Agents sulfamethox azole 400 mg-trimetho prim 80 mg tablet 11-26 00:00: 00 11-30 23:59 :00 No [id number] DYSURIA 1 tablet AT BEDTIME 1 tablet AT BEDTIME (route: oral) Med Classific ation: Anti-Infe ctive Agents sulfamethox azole 800 mg-trimetho prim 160 mg tablet 11-26 00:00: 00 11-30 23:59 :00 No [id number] DYSURIA 1 tablet ONCE DAILY 1 tablet ONCE DAILY (route: oral) Alternate Route: BY MOUTH. Med Classific ation: Anti-Infe ctive Agents Benefiber (inulin-cor n fiber) 2 gram chewable tablet 01-15 00:00: 00 Yes [id number] FIBER SUPPLEMENT 1 tablet ONCE DAILY 1 tablet ONCE DAILY (route: oral) Med Classific ation: Gastroint estinal Therapy Agents Brukinsa 80 mg capsule 01-15 00:00: 00 Yes [id number] CLL 1 capsule ONCE DAILY 1 capsule ONCE DAILY (route: oral) Med Classific ation: Antineopl astics cetirizine 10 mg tablet 01-15 00:00: 00 Yes [id number] ALLERGIES 1 tablet ONCE DAILY 1 tablet ONCE DAILY (route: oral) Med Classific ation: Respirato ry Therapy Agents Miralax 17 gram/dose oral powder 01-15 00:00: 00 Yes [id number] CONSTIPATIO N Per instruc tions ONCE DAILY Per instructio ns ONCE DAILY (route: oral) Med Classific ation: Gastroint estinal Therapy Agents Anti-Itch (hydrocorti sone) 1 % topical cream 01-15 00:00: 00 Yes [id number] HEMORRHOID 1 inch TWICE DAILY 1 inch TWICE DAILY (route: topical) Med Classific ation: Dermatolo gical Immunizations Ordered Immunization Name Filled Immunization Name Date Status Comments Refusal Reason INFLUENZA, TIV (INACTIVATED) 2024-07-19 00:00:00 PNEUMOCOCCAL (PPV), PPV 2024-07-19 00:00:00 Vital Signs Vital Name Observation Time Observation Value Commen ts Temperature 2025-01-31 10:22:00.000 97.9 [degF] Temperature 2025-01-18 11:07:00.000 97.7 [degF] Pulse 2025-01-31 10:22:00.000 65 /min Pulse 2025-01-18 11:07:00.000 64 /min O2 Saturation (%) 2025-01-31 10:22:00.000 98 % O2 Saturation (%) 2025-01-18 11:07:00.000 97 % Respirations 2025-01-31 10:22:00.000 20 /min Respirations 2025-01-18 11:07:00.000 17 /min Weight (lbs) 2025-01-31 10:22:00.000 99 [lb_av] Weight (lbs) 2025-01-18 11:15:00.000 101 [lb_av] Systolic Blood Pressure 2025-01-31 10:22:00.000 114 mm [Hg] Systolic Blood Pressure 2025-01-18 11:07:00.000 110 mm [Hg] Diastolic Blood Pressure 2025-01-31 10:22:00.000 62 mm [Hg] Diastolic Blood Pressure 2025-01-18 11:07:00.000 64 mm [Hg] Plan of Treatment Planned Activity [...] MEDICATIONS/TREATMENTS TO ALLEVIATE DISCOMFORT.] Future Scheduled Test [facility] TIFYING PHYSICIAN, ASSOCIATED PHYSICIAN, NPP OR PA [...] CARE PLAN: DR. JENELLE MEDEROS, VALERIO COOPER, SAWMILL MOULDER OPERATOR; DR. OTIS URRUTIA, DR. CHAD TOLENTINO, DR. [...] CARE PLAN: DR. JENELLE MEDEROS, VALERIO COOPER, SAWMILL MOULDER OPERATOR; DR. OTIS URRUTIA, DR. CHAD TOLENTINO, DR. AUSTIN AGUSTIN, AND ANYONE COVERING IN THEIR ABSENCE.] Future Scheduled Test HOME HEALT H NURSE [...] CAUSES AND MANAGEMENT STRATEGIES.] Future Scheduled Test HOME HEALT H NURSE TO INSTRUCT ON URINARY TRACT INFECTION, PREVENTION, SYMPTOMS AND WHEN TO REPORT TO THE AGENCY, PHYSICIAN, OR 911. [code = HOME HEALTH NURSE TO INSTRUCT ON URINARY TRACT INFECTION, PREVENTION, SYMPTOMS AND WHEN TO REPORT TO THE AGENCY, PHYSICIAN, OR 911.] Future Scheduled Test SKILLED NU RSE TO PROVIDE INSTRUCTION ON DEFINITION AND SIGNS/SYMPTOMS TO WATCH FOR RELATED IMPAIRED NEUROLOGICAL STATUS. [code = SKILLED NURSE TO PROVIDE INSTRUCTION ON DEFINITION AND SIGNS/SYMPTOMS TO WATCH FOR RELATED IMPAIRED NEUROLOGICAL STATUS.] Future Scheduled Test HOME HEALT H NURSE WILL TEACH THE PATIENT/CAREGIVER ABOUT WHAT IS A. FIB, HOW TO CHECK OWN PULSE AND TRACK, SIGNS AND SYMPTOMS OF WHEN ARRYTHMIA OCCURS, AND WHAT WARNING SIGNS TO CALL THE AGENCY, PHYSICIAN OR 911. [code = HOME HEALTH NURSE WILL TEACH THE PATIENT/CAREGIVER ABOUT WHAT IS A. FIB, HOW TO CHECK OWN PULSE AND TRACK, SIGNS AND SYMPTOMS OF WHEN ARRYTHMIA OCCURS, AND WHAT WARNING SIGNS TO CALL THE AGENCY, PHYSICIAN OR 911.] Goal 2024-07-29 Patient Goal - S OC- 07/19/24: TO GET STRONGER AND FEEL BETTER Goal Patient Goal - S OC- 07/19/24: TO GET STRONGER AND FEEL BETTER MARK- 07/29/24- TO HAVE NO MORE FALLS RECERT 09/14/24: TO REMAIN FREE FROM FALLS, INFECTIONS, AND HOSPITALIZATIONS. TO IMPROVE ENERGY RECERT 11/13/24: TO STAY SAFELY IN HOME, TO IMPROVE MEMORY. TO REMAIN FREE FROM FALLS, INFECTIONS, AND HOSPITALIZATIONS RECERT 01/11/25: NO UPDATES Goal 2024-09-14 Patient Goal - S OC- 07/19/24: TO GET STRONGER AND FEEL BETTER MARK- 07/29/24- TO HAVE NO MORE FALLS Goal 2025-01-11 Patient Goal - S OC- 07/19/24: TO GET STRONGER AND FEEL BETTER MARK- 07/29/24- TO HAVE NO MORE FALLS RECERT 09/14/24: TO REMAIN FREE FROM FALLS, INFECTIONS, AND HOSPITALIZATIONS. TO IMPROVE ENERGY RECERT 11/13/24: TO STAY SAFELY IN HOME, TO IMPROVE MEMORY. TO REMAIN FREE FROM FALLS, INFECTIONS, AND HOSPITALIZATIONS Goal 2024-11-13 Patient Goal - S OC- 07/19/24: TO GET STRONGER AND FEEL BETTER MARK- 07/29/24- TO HAVE NO MORE FALLS RECERT 09/14/24: TO REMAIN FREE FROM FALLS, INFECTIONS, AND HOSPITALIZATIONS. TO IMPROVE ENERGY Goal Provider Goal - PATIENT/CAREGIVER WILL DEMONSTRATE THE USE OF SYMPTOM LOG AND HOW TO IDENTIFY WHEN TO CALL THE TREATING PROVIDER. Goal Provider Goal - A PLAN OF CARE WILL BE ESTABLISHED THAT MEETS ALL PATIENT'S NURSING HOME NEEDS AND COUNTER SIGNED BY PHYSICIAN. Goal [...] A TIMELY MANNER. Goal Provider Goal - PATIENT/CAREGIVER WILL VERBALIZE UNDERSTANDING OF ANTICOAGULATION COMPLICATIONS TO REPORT AND PRECAUTIONS TO FOLLOW BY END OF HOME HEALTH SERVICES. Goal Provider Goal - PATIENT/CAREGIVER WILL INDEPENDENTLY DEMONSTRATE STRATEGIES TO MANAGE INCONTINENCE AND PROBLEMS THAT CAN DEVELOP FROM BEING INCONTINENT. Goal Provider Goal - PATIENT/CAREGIVER WILL INDEPENDENTLY VERBALIZE WAYS TO PREVENT A UTI AND VERBALIZE SYMPTOMS TO REPORT TO THE PHYSICIAN BY THE END OF HOME HEALTH SERVICES. Goal Provider Goal - PATIENT/CAREGIVER WILL VERBALIZE DEFINITION AND SIGNS/SYMPTOMS TO WATCH FOR RELATED TO IMPAIRED NEUROLOGICAL STATUS BY END OF EPISODE Goal Provider Goal - BY THE END OF HOME HEALTH SERVICES, PATIENT/CAREGIVER WILL DEMONSTRATE HOW TO TAKE THEIR OWN PULSE AND VERBALIZE WHAT WARNING SIGNS TO CALL THE PHYSICIAN OR 911 BY THE END OF HOME HEALTH SERVICES. Encounters Start Date/Time End Date/Time Encounter Type Admission Type Attending [facility] Care Department Encounter ID Discharge Date Discharge Status Discharge Condition Discharge Reason Percent Goals Met 2025-01-15 00:00:00 2025-03-15 00:00:00 Outpatient RECERTIFIC ATION RUSS GARCÍA [facility] [id number] 40.00
--- OUTSIDE RECORDS SUMMARY | 2025-02-08 09:21 | XMS_ITS | Clinical Summary ---
Author Organization [facility] Address [address] [place] [address] Care Team Providers Care Cooker Chip Name Role Phone Judiedwar Eliseo Sudarshan FENG Primary Care Provider Allergies [...] Amount: 4 Tablets 60 Tablet 4 Active allopurinoL (ZYLOPRIM) 300 mg tablet Take 1 Tablet (300 mg) by mouth daily. 60 Tablet 2 5 Active zanubrutinib (Brukinsa) 80 mg capsule TAKE 2 CAPSULES BY MOUTH TWICE A DAY 120 Capsule 5 Active Active Problems Problem Noted Date Diagnosed Date CLL (chronic lymphocytic leukemia) 03/24/2018 Encounters Date Type Department Care Team Description 02/06/2025 External Device Data STL ABSTRACTION Provider, Abstract 01/10/2025 External Device Data STL ABSTRACTION Provider, Abstract 01/09/2025 External Device Data STL ABSTRACTION Provider, Abstract 01/04/2025 Telephone [facility] Oncology [facility] Hematology [facility] [address] [place] [address] Nicholas Gibson MD Follow up appointment Questions 01/02/2025 1:15 PM CDT Office Visit [facility] Oncology and Hematology [facility] [address] [place] [id number] Nicholas Gibson MD CLL (chronic lymphocytic leukemia) (CMS/HCC) (Primary Dx) 12/27/2024 Orders Only [facility] Oncology and [facility] [address] [place] [address] Nicholas Gibson MD 11/16/2024 Telephone [facility] Oncology and Hematology [facility] [address] [place] [address] Nicholas Gibson MD Medication Review 11/15/2024 External Device Data STL ABSTRACTION Provider, Abstract 11/14/2024 External Device Data STL ABSTRACTION Provider, Abstract [...] Sign Reading Time Taken Comments Blood Pressure 130/75 01/02/2025 1:14 PM CDT Pulse 79 01/02/2025 1:14 PM CDT Temperature 36.6 C (97.9 F) 01/02/2025 1:14 PM CDT Respiratory Rate 15 01/02/2025 1:14 PM CDT Oxygen Saturation 91% 01/02/2025 1:14 PM CDT Inhaled Oxygen Concentration - - Weight 44.5 kg (98 lb 3.2 oz) 01/02/2025 1:14 PM CDT Height 147.3 cm (4' 10) 10/06/2023 12:32 PM CDT Body Mass Index 20.52 10/06/2023 12:32 PM CDT Plan of Treatment Upcoming Encounters Date Type Department Care Team (Late st Contact Info) Description 04/20/2025 11:15 AM CDT Office Visit [facility] Oncology and Hematology - [place] [address] [facility] [address] [place] [address] Nicholas Gibson MD [address] [facility] [address] [place] [address] Health Maintenance Due Date Last Done Comments DTAP/TDAP/TD VACCINES (1 - Tdap) 09/16/1954 PNEUMOCOCCAL VACCINE 50+ YEARS (1 of 2 - PCV) 09/16/18 55 ZOSTER VACCINE (1 of 2) 09[birth year]16/1954 OSTEOPOROSIS SCREENING 09/16/2000 RSV VACCINE (60+ or ) (1 - 1-dose 75+ series) 09/16/2010 INFLUENZA VACCINE (#1) 2025 Procedures Procedure Name Priority Date/Time Associated Diagnosis Comments CBC WITH DIFFERENTIAL Routine 12/27/2024 12:30 PM CDT from Last 3 Months Results * CBC WITH DIFFERENTIAL (12/27/2024 12:30 PM CDT) Blood us Nicholas Gibson MD HEMATOLOGY ORDERABLES Final Res ult from Last 3 Months Insurance [employer] PPO [facility] [employer] PPO [facility] RX [employer] Medicare Part D Care Teams Cooker Chip Relationship Specialty Start Date End Date Eliseo Waters DO [facility] [address] [address] PCP - General Internal Medicine 03/24/24
--- OUTSIDE RECORDS SUMMARY | 2025-02-08 09:21 | XMS_ITS ---
Author Name Auto Generated, Auto Generated Organization [facility] Address [address] [place] [address] Phone [phone] Care Team Providers Care Stone Gluer Name Role Phone Latesha Lowryn Unavailable [phone] Functional Status No Results Mental Status No [...] 12:00:00 EDT 2022 16 14:06:00 EDT 2022 [place]-3 Fish OiL 300 mg-1,000 mg capsule 1 [...] 2022 * End Date: * Text: * [facility] (current) use of anticoagulants* Code: * Start Date: WedApr 09 00:00:00 EDT 2022 * End Date: * Text: * [facility] (current) use of aspirin* Code: * Start [...]
--- OUTSIDE RECORDS SUMMARY | 2025-02-08 09:21 | XMS_ITS ---
Author Name Auto Generated, Auto Generated Organization [facility] Address [address] [place] [address] Phone [phone] Care Team Providers Care Firer Helper Name Role Phone Latesha Lowryn Unavailable [phone] Functional Status No Results Mental Status No [...] 12:00:00 EDT 2022 16 14:06:00 EDT 2022 [place]-3 Fish OiL 300 mg-1,000 mg capsule 1 [...] 2022 * End Date: * Text: * [facility] (current) use of anticoagulants* Code: * Start Date: WedApr 09 00:00:00 EDT 2022 * End Date: * Text: * [facility] (current) use of aspirin* Code: * Start [...]
--- OUTSIDE RECORDS SUMMARY | 2025-02-08 09:21 | XMS_ITS | Encounter Summary ---
Author Organization [facility] Address [address] [place] [address] Care Team Providers Care Operations Plant Attendant Name Role Phone Eliseo Waters DO Primary Care Provider [phone] Encounter Details Date Type Department Care Team (Late st Contact Info) Description 07/20/2024 Orders Only [facility] Health Information Management [address] [place] [address] Scanning, Provider Social History Tobacco Use Types Packs/Day Years Used Date Smoking Tobacco: Never Comments Unknown Sex and Gender Information Value Date Recorded Sex Assigned at Not on file Legal Sex Female 11:42 PM [employer] OFFICER Gender Identity Not on file Sexual Orientation Not on file documented as of this encounter Plan of Treatment Not on file documented as of this encounter Procedures Procedure Name Priority Date/Time Associated Diagnosis Comments SCAN - RADIOLOGY/IMAGING 07/20/2024 documented in this encounter Results * SCAN - RADIOLOGY/IMAGING (07/20/2024) Anatomical Region Laterality Modality Other us Provider Scanning Final Result documented in this encounter Visit Diagnoses Not on filedocumented in this encounter Additional Health Concerns 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
--- OUTSIDE RECORDS SUMMARY | 2025-02-08 09:21 | XMS_ITS | Clinical Summary ---
Author Organization Unknown Care Team Providers Care Handkerchief Maker Name Role Phone KENNETH MEDICAL PHOTOGRAPHER, VALERIO Unavailable Unavailable PANDA ROCA COUNSELOR, PENNY Vázquez ble Unavailable RAQUEL REGISTERED NURSE LEISURE TRAVEL AGENT, RUSS vuilairais Unavailable Payers Payer Name Policy [...] TO LARGE INTESTINE Active 06-28 00:00: 00 PRISON (CURRENT) USE OF ANTICOAGULAN TS Active 06-28 00:00: 00 OTHER PRISON (CURRENT) DRUG THERAPY Active 06-28 00:00: 00 [...] 07-18 00:00: 00 11-13 23:59 :00 No [id number] HELP WITH SIDE EFFECTS OF BRUKINSA 1 tablet ONCE DAILY 1 tablet ONCE DAILY (route: oral) Med Classific ation: Gout and Hyperuric emia Therapy Brukinsa 80 mg capsule 07-18 00:00: 00 11-13 23:59 :00 No [id number] CANCER 2 capsule TWICE DAILY 2 capsule TWICE DAILY (route: oral) Med Classific ation: Antineopl astics calcium 500 mg (as calcium carbonate 1,250 mg) tablet 07-18 00:00: 00 Yes [id number] SUPPLEMENT 1 tablet ONCE DAILY 1 tablet ONCE DAILY (route: oral) Med Classific ation: Electroly te Balance-N utritiona l Products Dulcolax (bisacodyl) 5 mg tablet,alessio yed release 07-18 00:00: 00 Yes [id number] CONSTIPATIO N 1 tablet ONCE DAILY 1 tablet ONCE DAILY (route: oral) Med Classific ation: Gastroint estinal Therapy Agents Eliquis 2.5 mg tablet 07-18 00:00: 00 Yes [id number] PREVENT CLOTS 1 tablet TWICE DAILY 1 tablet TWICE DAILY (route: oral) Med Classific ation: Hematolog ical Agents hydrocodone 10 mg-acetamin ophen 325 mg tablet 07-18 00:00: 00 09-14 23:59 :00 No [id number] PAIN 1 tablet 3 TIMES DAILY 1 tablet 3 TIMES DAILY (route: oral) Med Classific ation: Analgesic , Anti-infl ammatory or Antipyret ic metoprolol tartrate 25 mg tablet 07-18 00:00: 00 Yes [id number] HYPERTENSIO N 1 tablet TWICE DAILY 1 tablet TWICE DAILY (route: oral) Med Classific ation: Cardiovas cular Therapy Agents Miralax 17 gram/dose oral powder 07-18 00:00: 00 01-15 23:59 :00 No [id number] CONSTIPATIO N Per instruc tions ONCE DAILY Per instructio ns ONCE DAILY (route: oral) Med Classific ation: Gastroint estinal Therapy Agents Vitamin D3 10 mcg (400 unit) tablet 07-18 00:00: 00 Yes [id number] SUPPLEMENT 1 tablet ONCE DAILY 1 tablet ONCE DAILY (route: oral) Med Classific ation: Electroly te Balance-N utritiona l Products acetaminoph en 325 mg capsule 07-28 00:00: 00 Yes [id number] PAIN 2 capsule EVERY 6 HOURS 2 capsule EVERY 6 HOURS (route: oral) Med Classific ation: Analgesic , Anti-infl ammatory or Antipyret ic amoxicillin 875 mg-potassiu m clavulanate 125 mg tablet 08-23 00:00: 00 09-05 23:59 :00 No [id number] DYSURIA 1 tablet TWICE DAILY 1 tablet TWICE DAILY (route: oral) Med Classific ation: Anti-Infe ctive Agents Gemtesa 75 mg tablet 08-18 00:00: 00 11-13 23:59 :00 No [id number] OVERACTIVE BLADDER 1 tablet ONCE DAILY 1 tablet ONCE DAILY (route: oral) Med Classific ation: Genitouri nary Therapy ciprofloxac in 500 mg tablet 09-05 00:00: 00 09-19 23:59 :00 No [id number] COLO/VAGINA L FISTULA AND URINARY TRACT INFECTION 1 tablet TWICE DAILY 1 tablet TWICE DAILY (route: oral) Alternate Route: BY MOUTH. Med Classific ation: Anti-Infe ctive Agents metronidazo le 500 mg tablet 09-05 00:00: 00 09-19 23:59 :00 No [id number] COLO/VAGINA L FISTULA 1 tablet TWICE DAILY 1 tablet TWICE DAILY (route: oral) Alternate Route: BY MOUTH. Med Classific ation: Anti-Infe ctive Agents azelastine 137 mcg (0.1 %) nasal spray 09-17 00:00: 00 Yes [id number] ALLERGIES 1 spray TWICE DAILY 1 spray TWICE DAILY (route: nasal) Alternate Route: NOSTRIL - BOTH. Med Classific ation: Respirato ry Therapy Agents cetirizine 10 mg tablet 09-17 00:00: 00 01-15 23:59 :00 No [id number] ALLERGIES 1 tablet ONCE DAILY 1 tablet ONCE DAILY (route: oral) Med Classific ation: Respirato ry Therapy Agents mecobalamin (vitamin B12) 1,000 mcg chewable tablet 09-17 00:00: 00 Yes [id number] LOW VITAMIN B 1 tablet ONCE DAILY 1 tablet ONCE DAILY (route: oral) Med Classific ation: Electroly te Balance-N utritiona l Products docusate sodium 100 mg capsule 11-16 00:00: 00 Yes [id number] CONSTIPATIO N 1 capsule TWICE DAILY 1 capsule TWICE DAILY (route: oral) Med Classific ation: Gastroint estinal Therapy Agents sulfamethox azole 400 mg-trimetho prim 80 mg tablet 11-26 00:00: 00 11-30 23:59 :00 No [id number] DYSURIA 1 tablet AT BEDTIME 1 tablet AT BEDTIME (route: oral) Med Classific ation: Anti-Infe ctive Agents sulfamethox azole 800 mg-trimetho prim 160 mg tablet 11-26 00:00: 00 11-30 23:59 :00 No [id number] DYSURIA 1 tablet ONCE DAILY 1 tablet ONCE DAILY (route: oral) Alternate Route: BY MOUTH. Med Classific ation: Anti-Infe ctive Agents Benefiber (inulin-cor n fiber) 2 gram chewable tablet 01-15 00:00: 00 Yes [id number] FIBER SUPPLEMENT 1 tablet ONCE DAILY 1 tablet ONCE DAILY (route: oral) Med Classific ation: Gastroint estinal Therapy Agents Brukinsa 80 mg capsule 01-15 00:00: 00 Yes [id number] CLL 1 capsule ONCE DAILY 1 capsule ONCE DAILY (route: oral) Med Classific ation: Antineopl astics cetirizine 10 mg tablet 01-15 00:00: 00 Yes [id number] ALLERGIES 1 tablet ONCE DAILY 1 tablet ONCE DAILY (route: oral) Med Classific ation: Respirato ry Therapy Agents Miralax 17 gram/dose oral powder 01-15 00:00: 00 Yes [id number] CONSTIPATIO N Per instruc tions ONCE DAILY Per instructio ns ONCE DAILY (route: oral) Med Classific ation: Gastroint estinal Therapy Agents Anti-Itch (hydrocorti sone) 1 % topical cream 01-15 00:00: 00 Yes [id number] HEMORRHOID 1 inch TWICE DAILY 1 inch [...] TO ALLEVIATE DISCOMFORT.] Future Scheduled Test [facility] TIFYING PHYSICIAN, ASSOCIATED PHYSICIAN, NPP OR PA [...] CARE PLAN: DR. JENELLE MEDEROS, VALERIO COOPER, MEDICAL PHOTOGRAPHER; DR. OTIS URRUTIA, DR. CHAD TOLENTINO, DR. [...] CARE PLAN: DR. JENELLE MEDEROS, VALERIO COOPER, MEDICAL PHOTOGRAPHER; DR. OTIS URRUTIA, DR. CHAD TOLENTINO, DR. [...] WILL BE ESTABLISHED THAT MEETS ALL PATIENT'S PENITENTIARY NEEDS AND COUNTER SIGNED BY PHYSICIAN. Goal [...] End Date/Time Encounter Type Admission Type Attending [facility] Care Department Encounter ID Discharge Date Discharge Status Discharge Condition Discharge Reason Percent Goals Met 2025-01-15 00:00:00 2025-03-15 00:00:00 Outpatient RECERTIFIC ATION [facility] [id number] 40.00
--- OUTSIDE RECORDS SUMMARY | 2025-02-08 09:21 | XMS_ITS | Clinical Summary ---
Author Organization [facility] [address] Address [address] [place] [address] Care Team Providers Care Bridge Worker Apprentice Name Role Phone Eliseo Waters DO Primary Care Provider [phone] Allergies No known active allergies Medications ferrous [...] mg total) by mouth daily Act debby Eliquis 2.5 mg tablet Take 1 tablet (2.5 mg total) by mouth 2 (two) times a day 180 tablet 3 07/31/19 25 Active metoprolol tartrate (LOPRESSOR) 25 mg immediate release tablet TAKE 1 TABLET(25 MG) BY MOUTH TWICE DAILY 180 tablet 1 09/27/19 25 Active allopurinoL (ZYLOPRIM) 300 mg tablet Take 1 tablet (300 mg total) by mouth daily Act debby linezolid (ZYVOX) 600 mg tablet Take 1 tablet (600 mg total) by mouth 2 (two) times a day 11/03/19 25 Active Brukinsa 80 mg capsule Take 1 capsule (80 mg total) by mouth 2 (two) times a day 11/09/19 25 Active sulfamethoxaz ole-trimethop rim (BACTRIM) 400-80 mg per tablet Take 1 tablet by mouth nightly 5 tablet 11/27/19 25 Active Additional Information Patient not taking.Reported on 12/01/2024 Active Problems Problem Noted Date Diagnosed Date [...] valve regurgitation 06/02 Hospital discharge follow-up 06/02/2023 Anemia, unspecified 04/09/2023 Effusion, left wrist 04/09/2023 Fall on same level, unspecified, subsequent enco unter 04/09/2023 Nondisplaced fracture of gre ater trochanter of left femur, subsequent encounter for closed fracture with routine healing 04/09/2023 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 Pain in left shoulder 04/09/2023 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 Leukemia 01/15/2021 CLL (chronic lymphocytic leukemia) 08/08/2014 Encounters Date Type Department Care Team Description 12/03/2024 Results Follow-Up [facility] at [address] [phone] Parul Evans NP Urine culture Urine, clean voided 12/01/2024 12:13 PM CDT - 12/01/2024 11:59 PM CDT Hospital Encounter [address] [address] Acute cystitis with hematuria Discharge Disposition: Discharge to home or self care 12/01/2024 12:00 PM CDT Office Visit [facility] [address] [phone] Dimple Austin NP Acute cystitis with hematuria (Primary Dx) 12/01/2024 9:31 AM CDT - 12/01/2024 11:59 PM CDT Hospital Encounter [facility] ([facility]) [address] [place] [phone] Discharge Disposition: Discharge to home or self care 12/01/2024 9:30 AM CDT - 12/01/2024 11:59 PM CDT Hospital Encounter [facility] ([facility]) [address] [place] [phone] Discharge Disposition: Discharge to home or self care 12/01/2024 9:30 AM CDT - 12/01/2024 11:59 PM CDT Hospital Encounter [facility] ([facility]) [address] [place] [phone] Discharge Disposition: Discharge to home or self care 11/26/2024 Results Follow-Up [facility] at [address] [phone] Guillermina Venegas NP Urine culture Urine, clean voided 11/24/2024 12:19 PM CDT - 11/24/2024 11:59 PM CDT Hospital Encounter [address] [address] Acute cystitis with hematuria Discharge Disposition: Discharge to home or self care 11/24/2024 12:15 PM CDT Office Visit [facility] at [address] [phone] Dimple Austin NP Acute cystitis with hematuria (Primary Dx) 11/14/2024 9:30 AM CDT Office Visit [facility] at [address] [place] [address] Aldo Morelos MD Nonrheumatic aortic valve stenosis (Primary Dx); Nonrheumatic mitral valve regurgitation; Nonrheumatic tricuspid valve regurgitation; Paroxysmal atrial fibrillation (HCC); Chronic anticoagulation from Last 3 Months Surgical History Surgery Date Site/Laterality Comments FEMUR SURGERY Medical History Medical History Date Comments Hypertension Family History Medical History Relation Name Comments No Known Problems Brother 2 Lung disease Father No Known Problems Mother Relation Name Status Comments Brother 1 Alive Brother 2 Father Mother Social History Tobacco Use Types Packs/Day Years Used Date Smoking Tobacco: Never Smokeless Tobacco: Never Tobacco Cessation:Counseling Given: Not Answered Personal Safety Answer Date Recorded Have you ever been in or are you currently in a harmful physical or emotional relationship or is someone making you feel afraid or unsafe? Denies 09/08/2024 Comments No Sex and Gender Information Value Date Recorded Sex Assigned at Not on file Legal Sex Female 11:42 PM FRAME NA[employer]ER Gender Identity Not on file Sexual Orientation Not on file Obstetrics History Last Filed Vital Signs Vital Sign Reading Time Taken Comments Blood Pressure 119/64 12/01/2024 11:46 AM CDT Pulse 90 12/01/2024 11:46 AM CDT Temperature 36.2 C (97.2 F) 12/01/2024 11:46 AM CDT Respiratory Rate 16 12/01/2024 11:46 AM CDT Oxygen Saturation 98% 12/01/2024 11:46 AM CDT Inhaled Oxygen Concentration - - Weight 43.5 kg (96 lb) 12/01/2024 11:46 AM CDT Height 142.2 cm (4' 8) 11/14/2024 9:26 AM CDT Body Mass Index 21.52 11/14/2024 9:26 AM CDT Plan of Treatment Health Maintenance Due Date Last Done Comments Depression Screening 1935 Fall Risk Assessment 1935 Osteoporosis Screening-Bone Density Scan 1935 Hepatitis B Screening 09/16/1953 Zoster Vaccine (1 of 2) 09/16/1954 Well Visit 65+ 09/16/2000 Covid-19 Vaccine (2023- 5 season) 2024 03/15/2023, 03/10/2022, 09/25/2021, Additional history exists Influenza Vaccine (#1) 2025 , 03/10/2022, 02/11/2021, Additional history exists DTaP/Tdap/Td Vaccine (2 - Td or Tdap) 05/29/2025 05/29/2015 Pneumococcal vaccine 65+ Completed 023, 11/01/2017, 03/23/2015 Procedures Procedure Name Priority Date/Time Associated Diagnosis Comments POCT URINALYSIS DIPSTICK Routine 12/01/2024 12:58 PM CDT Acute cystitis with hematuria URINE CULTURE Routine 12/01/2024 12:13 PM CDT Acute cystitis with hematuria NEURO CT OUTSIDE REFERENCE Routine 12/01/2024 9:[address] OUTSIDE REFERENCE Routine 12/01/2024 9:30 AM CDT NEURO MR OUTSIDE REFERENCE Routine 12/01/2024 9:30 AM CDT URINE CULTURE Routine 11/24/2024 12:19 PM CDT Acute cystitis with hematuria POCT URINALYSIS DIPSTICK Routine 11/24/2024 12:15 PM CDT Acute cystitis with hematuria from Last 3 Months Results * (ABNORMAL) POCT urinalysis dipstick (12/01/2024 12:58 PM CDT) Color, Urine, POC Brown Clarity, ur, POC Cloudy(A) Clear Glucose, ur, POC Negative Negative Bilirubin, ur, POC Moderate(A) Negative Ketones, ur, POC Negative Negative Specific [place], POC 1.030 1.003 - 1.030 Blood, ur, POC Large(A) Negative pH, ur, POC 6.0 5.0 - 8.0 Protein, ur, POC 100.(A) Negative Urobilinogen, urine, POC 1.0 0.2 - 1.0 mg/dL Nitrite, ur, POC Negative Negative Leukocytes, ur, POC Large(A) Negative Lot Number [id number] Urine 12/01/2024 12:5 8 PM CDT Dimple Austin NP POINT OF CARE TEST ORDERABLES F inal Result * Urine culture Urine, clean voided (12/01/2024 12:13 PM CDT) Report Final Report: Less than 100,000 colonies/mL (clinically insignificant growth based on current clinical standards) Comment:Testing performed by : [facility], [address] [facility] [place]., [address] Organism (CLINICALLY INSIGNIFICANT [facility]TH [facility] Urine, clean voided 12/01/2024 12:13 PM CDT 12/01/2024 8:25 PM CDT Narrative ADITYA COLLINS - 12/03/2024 7:42 AM CDT Testing performed by [facility] ([phone]) Dimple Austin NP LAB MICROBIOLOGY - GENERAL ORDSal BARNARD Final Result Performing Organization Address [facility] Co de Phone Number AFUAMARY CARMEN [address] [place] [address] * Neuro CT Outside Reference (12/01/2024 9:31 AM CDT) Impressions [email or web address] - 12/01/2024 9:31 AM CDT These images are for Reference purposes only and have not been reviewed by [facility] Radiology. There will be no report generated by a [facility] Radiologist. Narrative [email or web address] - 12/01/2024 9:31 AM CDT EXAMINATION: Images For Reference Purposes Only Marco Antonio Zepeda DO IMG CT PROCEDURES Final Re sult Performing Organization Address [facility] Co de Phone Number [email or web address] * Neuro CT Outside Reference (12/01/2024 9:30 AM CDT) Impressions [email or web address] - 12/01/2024 9:30 AM CDT These images are for Reference purposes only and have not been reviewed by [facility]. There will be no report generated by a [facility] Radiologist. Narrative [email or web address] - 12/01/2024 9:30 AM CDT EXAMINATION: Images For Reference Purposes Only Marco Antonio Silverio Katelyn DO IMG CT PROCEDURES Final Re sult Performing Organization Address [facility] Co de Phone Number [email or web address] * Neuro MR Outside Reference (12/01/2024 9:30 AM CDT) Impressions [email or web address] - 12/01/2024 9:30 AM CDT These images are for Reference purposes only and have not been reviewed by [facility] Radiology. There will be no report generated by a [facility] Radiologist. Narrative [email or web address] - 12/01/2024 9:30 AM CDT EXAMINATION: Images For Reference Purposes Only Marco Antonio Zepeda DO IMG MRI PROCEDURES Final R esult Performing Organization Address City/[facility]/ZIP Co de Phone Number [email or web address] * (ABNORMAL) Urine culture Urine, clean voided (11/24/2024 12:19 PM CDT) Report Final Report: Greater than or equal to 100,000 colonies/mL of Citrobacter freundii complex Plus growth of clinically insignificant bacterial blaise. (.) Comment:Testing performed by : [facility], [address] [place]., [address] Organism CITROBACTER FREUNDII COMPLEX [facility] Organism PLUS GROWTH OF CLINICALLY INSIGNIFICANT BLAISE. [facility] Urine, clean voided 11/24/2024 12:19 PM CDT 11/24/2024 10:16 PM CDT Narrative [facility] - 11/27/2024 6:24 AM CDT Testing performed by [facility] ([phone]) Organism Antibiotic Method Susceptibility Citrobacter freundii complex Ampicillin INTERPRETATION Resistant Citrobacter freundii complex Cefazolin INTERPRETATION Resistant Citrobacter freundii complex Nitrofurantoin INTERPRETATION Susceptible Citrobacter freundii complex Gentamicin INTERPRETATION Susceptible Citrobacter freundii complex Trimethoprim with Sulfamethoxazole INTERPRETATION Susceptible Citrobacter freundii complex Meropenem INTERPRETATION Susceptible Citrobacter freundii complex Cefepime INTERPRETATION Susceptible Citrobacter freundii complex Ciprofloxacin INTERPRETATION Susceptible Citrobacter freundii complex Ceftazidime INTERPRETATION Resistant Citrobacter freundii complex Ceftriaxone INTERPRETATION Resistant Citrobacter freundii complex Piperacillin/Tazobactam INTERPRETATION Resistant Dimple Austin NP LAB MICROBIOLOGY - GENERAL ELIZABETH BARNARD Final Result Performing Organization Address City/[facility]/ZIP Co de Phone Number ADITYA [address] [place] [address] * (ABNORMAL) POCT urinalysis dipstick (11/24/2024 12:15 PM CDT) Color, Urine, POC Yellow Clarity, ur, POC Clear Clear Glucose, ur, POC Negative Negative Bilirubin, ur, POC Small(A) Negative Ketones, ur, POC Negative Negative Specific [place], POC 1.030 1.003 - 1.030 Blood, ur, POC Moderate(A) Negative pH, ur, POC 7.0 5.0 - 8.0 Protein, ur, POC 300.(A) Negative Urobilinogen, urine, POC 1.0 0.2 - 1.0 mg/dL Nitrite, ur, POC Positive(A) Negative Leukocytes, ur, POC Large(A) Negative Lot Number [id number] Urine 11/24/2024 12:1 5 PM CDT Dimple Austin NP POINT OF CARE TEST ORDERABLES F inal Result from Last 3 Months Additional Health Concerns Infection Onset Date 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 [id number] [place] [address] [employer] MED[employer]ARE Advance Directives For more information, please contact: [phone] * LIMITED - No CPR (Latest Code Status on File) Date Activated Date Inactivated Comments 09/08/2024 3:21 PM 09/08/2024 8:42 PM Care Teams Bridge Worker Apprentice Relationship Specialty Start Date End Date Eliseo Wtaers DO PCP - General Internal Medicine 09/16/23
== END 2025-02-08 09:11 | disposition home or self-care (01) ==
LOC: ANHGOSHLAB 09:10
PROVIDERS: PCP Internal Medicine; Visit Provider Clinical Nurse Specialist
DX: R39.9 Unspecified symptoms and signs involving the genitourinary system (principal)
CPT/HCPCS: 87086

== ENCOUNTER 2025-04-12 10:37 | Outpatient (CLI) | payer MEDICARE, SELFPAY ==
[2025-04-12 10:54] LABS: Hematocrit 37.6 % (37.0-47.0); Hemoglobin 11.4 g/dL (12.0-15.0); Immature Granulocyte Percent A 0.1 % (0-0.5); Lymphocytes Absolute Auto 33.93 K/mm3 (0.9-3.2); Mean Corpuscular HGB Conc 30.3 g/dl (32-36); Mean Corpuscular Hemoglobin 29.8 pg (26-34); Mean Corpuscular Volume 98.4 fl (80-100); Nucleated Red Blood Cells Absolute Auto 0.000 K/mm3 (0.0-0.012); Nucleated Red Blood Cells Perc 0.0 % (0.0-0.2); Platelet Count Result 190 k/mm3 (150-375); Red Blood Count 3.82 M/mm3 (4.2-5.4); White Blood Count 41.3 K/mm3 (4.5-10.0)
[2025-04-12 11:02] LABS: Schistocytes None Seen
[2025-04-12 11:04] LABS: Anisocytosis 1+; Smudge Cells PRESENT
[2025-04-12 12:35] LABS: Anion Gap 7 mmol/L (4-12); Blood Urea Nitrogen 20 mg/dL (7-17); Calcium 9.1 mg/dL (8.4-10.2); Carbon Dioxide 25 mmol/L (22-30); Chloride 106 mmol/L (98-107); Estimated Glomerular Filt Rate 50; Glucose 91 mg/dL (65-110); Potassium 4.7 mmol/L (3.4-5.0); Sodium 138 mmol/L (137-145)
== END 2025-04-12 10:38 | disposition home or self-care (01) ==
LOC: ANHLAB 10:38
PROVIDERS: PCP Internal Medicine; Visit Provider Internal Medicine Hematology & Oncology
DX: C91.10 Chronic lymphocytic leukemia of B-cell type not having achieved remission (principal)
CPT/HCPCS: 36415; 80048; 85025